=== PATIENT | female | born 1955 | race Caucasian/White ===

== ENCOUNTER 2022-12-15 12:39 | Outpatient (OUT) | payer OTHER, SELFPAY ==
--- NOTE | 2022-12-15 12:42 | XR_ITS ---
[facility] [place] [id number] Patient Name: LONDON COURTNEY MRN: [id number] date: 1955 Sex: F Assigned Patient Location: [facility] Current Patient Location: [facility] Accession/Order Number: [id number] Exam Date: 12/15/2022 12:55 Report Date: 12/15/2022 13:20 At the request of: MARIBEL ALVAREZ Procedure: XR DEXA axial skeleton EXAMINATION: XR DEXA axial skeleton HISTORY: Postmenopausal Z78.0 COMPARISON: No relevant comparison available. TECHNIQUE: Dual-energy X-ray absorptiometry (DXA) was performed. FINDINGS: SPINE ANALYSIS: Average bone mineral density is 1.129 g/cm2. T-score (standard deviation relative to young adult mean): -0.4 . HIP ANALYSIS: Lowest bone mineral density is within the right femoral trochanter, 0.392 g/cm2. T-score (standard deviation relative to young adult mean): -4.0 . XR/XR DEXA axial skeleton IMPRESSION: [employer] Classification: Osteoporosis - High Fracture Risk Electronically authenticated by: PEGGY CORTEZ Date: 12/15/2022 13:20
== END 2022-12-15 12:40 | disposition home or self-care (01) ==
LOC: RAD 12:39
PROVIDERS: PCP Family Medicine; Visit Provider Family Medicine
DX: Z78.0 Asymptomatic menopausal state (principal); M81.0 Age-related osteoporosis without current pathological fracture
CPT/HCPCS: 77080

== ENCOUNTER 2023-03-26 10:59 | Outpatient (OUT) | payer OTHER, SELFPAY ==
[2023-03-26 11:31] LABS: Hematocrit 38.3 % (36.0-48.0); Hemoglobin 12.3 g/dL (12.0-16.0); Mean Corpuscular HGB Conc 32.1 g/dL (29.9-35.2); Mean Corpuscular Hemoglobin 30.2 pg (26.7-34.0); Mean Corpuscular Volume 94.1 fL (81.0-99.0); Mean Platelet Volume 11.1 fL (9.5-13.5); Platelet Count 263 10^3/uL (150-450); Red Blood Count 4.07 10^6/uL (4.20-5.40); Red Cell Distribution Width 11.9 % (11.0-15.0); White Blood Count 7.7 10^3/uL (4.0-11.0)
[2023-03-26 11:32] LABS: Bilirubin Urine NEGATIVE (NEGATIVE); Blood Urine NEGATIVE (NEGATIVE); Clarity Urine CLEAR (CLEAR); Color Urine YELLOW (YELLOW); Glucose Urine UA NEGATIVE (NEGATIVE); Ketones Urine NEGATIVE (NEGATIVE); Leukocyte Esterase Urine SMALL (NEGATIVE); Nitrite Urine NEGATIVE (NEGATIVE); Protein Urine NEGATIVE (NEG/TRACE); Urobilinogen Urine 0.2 EU/dL (0.2-1.0)
[2023-03-26 11:53] LABS: Bacteria Urine TRACE #/HPF (NONE SEEN); Mucus Urine NONE SEEN (NONE SEEN); RBC Urine NONE SEEN #/HPF (0-2)
[2023-03-26 11:54] LABS: Squamous Epithelial Cell Urine FEW #/LPF (NONE/RARE)
[2023-03-26 11:55] LABS: Cast Seen? NONE SEEN #/LPF (NONE SEEN)
[2023-03-26 11:56] LABS: Creatinine Urine Random 108.85 mg/dL (20.00-300.00); Protein Creatinine Ratio Urine 0.11; Total Protein Urine Random 11.8 mg/dL (<=11.9)
[2023-03-26 12:34] LABS: Albumin Level 3.6 g/dL (3.4-5.0); Anion Gap 14.7; BUN Creatinine Ratio 23.6; Calcium 9.3 mg/dL (8.5-10.1); Carbon Dioxide 24.1 mmol/L (21.0-32.0); Chloride 103 mmol/L (98-107); Estimated GFR (African America 51 (>=60); Estimated GFR (Non-African Ame 42 (>=60); Glucose 159 mg/dL (74-106); Magnesium 1.9 mg/dL (1.8-2.4); Phosphorus 2.6 mg/dL (2.6-4.7); Potassium 3.8 mmol/L (3.5-5.1); Sodium 138 mmol/L (136-145); Uric Acid 5.5 mg/dL (2.6-6.0)
[2023-03-27 12:09] LABS: PTH, Intact 18 pg/mL (15-65)
== END 2023-03-26 11:00 | disposition home or self-care (01) ==
PROVIDERS: PCP Family Medicine; Visit Provider Internal Medicine
DX: Z12.31 Encounter for screening mammogram for malignant neoplasm of breast (principal); N18.30 Chronic kidney disease, stage 3 unspecified; I12.9 Hypertensive chronic kidney disease with stage 1 through stage 4 chronic kidney disease, or unspecified chronic kidney disease; E11.22 Type 2 diabetes mellitus with diabetic chronic kidney disease; D63.1 Anemia in chronic kidney disease; N25.81 Secondary hyperparathyroidism of renal origin
CPT/HCPCS: 36415; 77063; 77067; 80069; 81001; 82306; 82570; 83735; 83970; 84156; 84550; 85027

== ENCOUNTER 2023-03-26 11:24 | Outpatient (OUT) | payer OTHER, SELFPAY ==
--- NOTE | 2023-03-26 11:28 | MM_ITS ---
Patient Name: LONDON COURTNEY MR#: [id number] : 1955 Exam Date: 03/26/2023 Ordering Doctor: DR Romulo Garcia . RADIOLOGY REPORT PROCEDURE: MM TOMOSYNTHESIS SCREENING BI COMPARISON: MG MAMM SCREEN 3D [place] CAD, 10/25/2020. MG MAMM SCREEN 3D [place] CAD, 01/09/2022. INDICATIONS: Screening Calculator Name NCI Breast Cancer Risk Assessment Tool 5 Year Breast Cancer Risk 1.40% Lifetime Breast Cancer Risk 4.30% Personal Breast Cancer No Personal Ovarian Cancer No Treatments None Family Cancers None LOCATION: [facility] BREAST COMPOSITION: Almost entirely fatty. FINDINGS: DIAGNOSTIC CATEGORY 1--NEGATIVE. NO CHANGE FROM COMPARISON ASSESSMENT. Scattered benign-appearing calcifications are present. Scattered benign-appearing lymph nodes are present. RIGHT BREAST: No significant suspicious finding. LEFT BREAST: No significant suspicious finding. RECOMMENDATIONS: ROUTINE MAMMOGRAM AND CLINICAL EVALUATION IN 12 MONTHS. PLEASE NOTE: A NORMAL MAMMOGRAM DOES NOT EXCLUDE THE POSSIBILITY OF BREAST CANCER. A CLINICALLY SUSPICIOUS PALPABLE LUMP SHOULD BE BIOPSIED. Dictated by: Mateo Fox MD on 03/26/2023 at 14:22 Approved by: Mateo Fox MD on 03/26/2023 at 14:23
== END 2023-03-26 11:25 | disposition home or self-care (01) ==
LOC: MAMMO 11:24
PROVIDERS: PCP Family Medicine; Visit Provider Family Medicine
DX: Z12.31 Encounter for screening mammogram for malignant neoplasm of breast (principal)
CPT/HCPCS: 77063; 77067

== ENCOUNTER 2023-06-22 09:06 | Outpatient (OUT) | payer OTHER, SELFPAY ==
--- OUTSIDE RECORDS SUMMARY | 2023-06-22 09:11 | XMS_ITS | CCD ---
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 Name Role Phone Rice, Bakari W Unavailable Unavailable Rice, Bakari W Unavailable Unavailable Rice, Bakari W Unavailable Unavailable NADERER, MARIBEL~[phone] UNKNOWN Unavailable Unavailable NADERER, MARIBEL AVALOS Primary Care Unavailabl e DELAROSA, TIANA MURPHY Referring Unavailabl e Ada, Ghislaine Unavailable NADERER, DR MARIBEL Mueller Admitting Unavailable NADERER, DR MARIBEL Mueller Attending Unavailable TATIANA, DR PEGGY Lisa Consulting Unavailable NADERER, DR MARIBEL Mueller Primary Care Unavailable NADERER, DR MARIBEL Mueller Consulting Unavailable NADERER, DR MARIBEL Mueller Consulting Unavailable NADERER, DR MARIBEL Mueller Admitting Unavailable NADERER, DR MARIBEL Mueller Attending Unavailable NADERER, DR MARIBEL Mueller Primary Care Unavailable NADERER, DR MARIBEL Mueller Primary Care Unavailable ADA, GHISLAINE Admitting Unavailable ADA, GHISLAINE Consulting Unavailable ADA, GHISLAINE Attending Unavailable NADERER, DR MARIBEL Mueller Primary Care Unavailable ADA, GHISLAINE Attending Unavailable ADA, GHISLAINE Admitting Unavailable ADA, GHISLAINE Consulting Unavailable NADERER, DR MARIBEL Mueller Primary Care Unavailable NADERER, DR MARIBEL Mueller Consulting Unavailable NADERER, DR MARIBEL Mueller Attending Unavailable NADERER, DR MARIBEL Mueller Admitting Unavailable NADERER, DR MARIBEL Mueller Primary Care Unavailable ADA, GHISLAINE Attending Unavailable ADA, GHISLAINE Admitting Unavailable ADA, GHISLAINE Consulting Unavailable NADERER, DR MARIBEL Mueller Primary Care Unavailable NADERER, DR MARIBEL Mueller Consulting Unavailable NADERER, DR MARIBEL Mueller Admitting Unavailable NADERER, DR MARIBEL Mueller Attending Unavailable NADERER, DR MARIBEL Mueller Primary Care Unavailable NADERER, DR MARIBEL Mueller Admitting Unavailable NADERER, DR MARIBEL Mueller Attending Unavailable BREWSTER, DR CONNIE José Consulting Unavailable NADERER, DR MARIBEL Mueller Consulting Unavailable ANTONIO, DR MARIBEL Mueller Primary Care Unavailable BREWSTER, DR CONNIE José Consulting Unavailable ANTONIO, DR MARIBEL Mueller Admitting Unavailable NADEREMaria L, DR MARIBEL Mueller Attending Unavailable NADERER, DR MARIBEL Mueller Consulting Unavailable NADERER, DR MARIBEL Mueller Primary Care Unavailable NADERER, DR MARIBEL Mueller Consulting Unavailable FAWWAShnaa, SHAIKH Stephanie Admitting Unavailable FAWJAYDEN, SHAIKH Stephanie Attending Unavailable FAWJAYDEN, SHAIKH Stephanie Consulting Unavailable ISAMAR WATERS Consulting Unavailable ANTONIO, DR MARIBEL Mueller Consulting Unavailable ANTONIO, DR MARIBEL Mueller Admitting Unavailable NADPHYLLIS, DR MARIBEL Mueller Primary Care Unavailable NADPHYLLIS, DR MARIBEL Mueller Attending Unavailable ANTONIO, DR MARIBEL Mueller Primary Care Unavailable GRILLIZehra ., DR KELLY Calderon Consulting Unavaila ble GRILLIS ., DR KELLY Calderon Attending Unavaila ble GRILLIS ., DR KELLY Calderon Admitting Unavaila ble URI II, CHANO Consulting Unavailable FILMELVIN, ANAIS Consulting Unavailable ANTONIO, MARIBEL Attending Unavailable GERONIMO, ANAIS Rey Attending Unavailable Allergies Allergy Classification Reported Allergen(s) Allergy Type Date of Onset Reaction(s) Facility (1 source) No Known Medication Allergies; Translations: [No Known Medication Allergies] Propensity to adverse reactions (disorder) [facility] Repository Medications Current Medications Medication Drug Class(es) Dates Sig (Normalized) Sig (Original) acetaminophen 500 mg oral capsule (14 sources) take 1-2 capsules by mouth every six hours as needed Acetaminophen 500 mg 1-2 capsules as needed Orally every 6 hrs Active take 1-2 capsules by mouth every six hours as needed Acetaminophen 500 mg 1-2 capsules as nee ded Orally every 6 hrs Active alendronic acid 70 mg oral tablet (1 source) Bisphosphonate Alendronate Sodi um 70 MG 1 tablet 30 minutes before the first food, beverage or medicine of the day with plain water Orally ONCE A WEEK Active aspirin 81 mg chewable tablet (14 sources) Platelet Aggregation Inhibitor, Nonsteroidal Anti-inflammatory Drug take 1 tablet by mouth every twenty-four hours Aspirin 81 MG 1 Tablet Orally Daily Active atorvastatin 10 mg oral tablet (14 sources) HMG-CoA Reductase Inhibitor take 1 tablet by mouth every twenty-four hours Atorvastatin Calcium 10 MG 1 tablet Orally Once a day Active Calcium + D + K 750-500-40 MG-UNT-MCG (1 source) take 1 tablet by mouth twice daily at mealtime Calcium + D + K 750-500-40 MG-UNT-MCG 1 tablet with meals Orally Twice a day Active Centrum Silver 50+Women - (1 source) Centrum Silver 50+Women - as directed Orally Active cholecalciferol 0.05 mg oral capsule (7 sources) Vitamin D take 1 capsule by mouth every twenty-four hours Vitamin D3 50 MCG (1999 UT) 1 capsule Orally Once a day Active docusate sodium 50 mg / sennosides, assisted 8.6 mg oral tablet (2 sources) take 1 tablet by mouth every twenty-four hours Senna S 8.6-50 MG 1 tablet as needed Orally ONCE A DAY Active ferrous sulfate 325 mg oral tablet (16 sources) Start: take 1 tablet by mouth every other day Ferrous Sulfate 325 (65 Fe) MG 1 tablet Orally every other day for 90 day(s) Feb, Active Start: 02-10-2021 take 1 tablet by emilee every other day Ferrous Sulfate 325 (65 Fe) MG 1 tablet Orally every other day for 90 day(s) Feb, Active take 1 tablet by emilee every other day Ferrous Sulfate 325 (65 Fe) MG 1 tablet Orally every other day for 90 day(s) Active hydroCHLOROthiazide 25 mg / losartan potassium 100 mg oral tablet (14 sources) Thiazide Diuretic, Angiotensin 2 Receptor Michelle take 1 tablet by mouth every twenty-four hours Losartan Potassium-HCTZ 100-25 MG 1 tablet Orally Once a day Active take 1 tablet by mouth every twe nty-four hours magnesium oxide 400 mg oral tablet (17 sources) Start: 02-10-2021 take 1 tablet by emilee every twenty-four hours Magnesium Oxide 400 MG 1 tab(s) Orally Once a day for 90 day(s) Feb, Active take 1 tablet by mouth once tip y Magnesium Oxide 400 (240 Mg) MG TAKE 1 TABLET BY MOUTH EVERY DAY for 90 Active metFORMIN hydrochloride 500 mg oral tablet (16 sources) Biguanide take 1 tablet by emilee th twice daily at mealtime metFORMIN HCl 500 mg TAKE 1 TABLET BY MOUTH WITH MEALS TWICE DAILY for 90 Active take 0.5 tablet by mouth twice d aily Metformin 1000 mg 1/2 Tablet Oral bid for 90 day(s) Active metoprolol tartrate 50 mg oral tablet (14 sources) beta-Adrenergic Michelle take 1 tablet by mouth every twelve hours Metoprolol Tartrate 50 MG 1 tablet with food Orally Twice a day Active oxyCODONE hydrochloride 10 mg oral tablet (8 sources) Opioid Agonist take 1 tablet by mouth every six hours oxyCODONE HCl 10 MG 1 tablet as needed Orally every 6 hrs Active Completed/Discontinued Medications Medication Drug Class(es) Dates Sig (Normalized) Sig (Original) Multivitamins - (6 sources) Multivitamins - as directed Orally Not-Taking Problems Active Problems Problem Classification Problem Date Documented Date Episodic/Chronic Chronic kidney disease (15 sources) Chronic kidney disease stage 3; Translations: [Chronic kidney disease, stage 3 (moderate)] Chronic Deficiency and other anemia (14 sources) Anemia of renal disease; Translations: [Anemia in chronic kidney disease] Chronic Deficiency and other anemia (5 sources) Anemia in chronic kidney disease; Translations: [ANEMIA IN CHRONIC KIDNEY DISEASE] Onset: 1 Resolved: 2 Chronic Diabetes mellitus with complications (20 sources) Type 2 diabetes mellitus; Translations: [Type 2 diabetes mellitus with diabetic chronic kidney disease] Onset: 1 Resolved: 2 Chronic Diabetes mellitus without complication (1 source) Type 2 diabetes mellitus without complications; Translations: [TYPE 2 DM WITHOUT COMPLICATIONS] Onset: 3 Chronic Disorders of lipid metabolism (5 sources) Hyperlipidemia, unspecified; Translations: [Dyslipidemia] Onset: 3 Chronic Essential hypertension (1 source) Essential (primary) hypertension; Translations: [ESSENTIAL PRIMARY HYPERTENSION] Onset: 3 Chronic Hypertension with complications and secondary hypertension (20 sources) Hypertensive renal disease; Translations: [Hypertensive chronic kidney disease with stage 1 through stage 4 chronic kidney disease, or unspecified chronic kidney disease] Onset: 1 Resolved: 2 Chronic Osteoarthritis (1 source) Unilateral primary osteoarthritis, left hip; Translations: [UNI PRIM OSTEOARTHRITIS LT HIP] Onset: 2 Chronic Other aftercare (1 source) Other assisted (current) drug therapy; Translations: [OTH BALL SHAGGER CURRENT DRUG THERAPY] Onset: 3 Episodic Other aftercare (1 source) 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; Translations: [BALL SHAGGER CURRENT USE OF ASPIRIN] Onset: 3 Episodic Other aftercare (1 source) termite treater helper (current) use of oral hypoglycemic drugs; Translations: [BALL SHAGGER USE ORAL HYPOGLYCEMIC DX] Onset: 3 Episodic Other and unspecified benign neoplasm (1 source) Personal history of colonic polyps; Translations: [PERSONAL HISTORY OF COLONIC POLYPS] Onset: 3 Episodic Other diseases of kidney and ureters (14 sources) Secondary hyperparathyroidism; Translations: [Secondary hyperparathyroidism of renal origin] Chronic Other diseases of kidney and ureters (6 sources) Secondary hyperparathyroidism of renal origin; Translations: [SEC HYPERPARATHYROIDISM RENAL ORIGN] Onset: 1 Resolved: 2 Chronic Other non-traumatic joint disorders (3 sources) Pain in unspecified knee; Translations: [PAIN IN UNSPECIFIED KNEE] Onset: 3 Episodic Other non-traumatic joint disorders (1 source) Pain in left knee; Translations: [PAIN IN LEFT KNEE] Onset: 3 Episodic Other screening for suspected conditions (not mental disorders or infectious disease) (8 sources) Encounter for screening for malignant neoplasm of colon; Translations: [Encounter for screening mammogram for malignant neoplasm of breast] Onset: 2 Episodic Unclassified (1 source) CHRN KIDNEY DISEASE STG 3 UNSP; Translations: [CHRN KIDNEY DISEASE STG 3 UNSP] Onset: 3 Unclassified (2 sources) CONTACT W/AND (SUSP) EXPOS COVID-19; Translations: [CONTACT W/AND (SUSP) EXPOS COVID-19] Onset: 2 Viral infection (2 sources) COVID-19; Translations: [COVID-19] Onset: 2 Past or Other Problems Problem Classification Problem Date Documented Da te Episodic/Chronic Acute and unspecified renal failure (1 source) Acute kidney failure, unspecified; Translations: [ACUTE KIDNEY FAILURE UNSPECIFIED] Onset: 02-01-2022 Episodic Chronic kidney disease (20 sources) Chronic kidney disease; Translations: [Chronic kidney disease, stage III (moderate)] Onset: 02-10-2021 Resolved: 09-01-2021 Malaise and fatigue (4 sources) Weakness; Translations: [WEAKNESS] Onset: 01-26-2022 Episodic Other fractures (4 sources) Other specified fracture of left pubis, subsequent encounter for fracture with routine healing; Translations: [OTHER SPEC FX LT PUBIS SUB FX RTN] Onset: 10-18-2021 Episodic Septicemia (except in labor) (1 source) Sepsis, unspecified organism; Translations: [SEPSIS UNSPECIFIED ORGANISM] Onset: 02-01-2022 Episodic Unclassified (1 source) CONTACT W/AND (SUSP) EXPOS COVID-19; Translations: [CONTACT W/AND (SUSP) EXPOS COVID-19] Onset: 01-16-2022 Urinary tract infections (1 source) Urinary tract infection, site not specified; Translations: [UTI SITE NOT SPECIFIED] Onset: 02-01-2022 Episodic Results Test Name Value Interpretation Reference Range Facility PTH INTACTon 09-01-2022 PTH, Intact 26 pg/mL Normal 15-65 [facility] Comment on above: Performed By: #### P THINT #### [facility] [address] [place] [address] Dr. Nunu Borges CBC AUTO DIFFon 08-31-2022 BASO # 0.1 103/ul Normal 0.0-0.1 [facility] Comment on above: Performed By: #### U TIFFANIE, MG, RENAL #### [facility] [address] [address] [address] Nunu Borges Basophils/100 WBC (Bld) 1.2 % Normal 0.2-2.0 [facility] Comment on above: Performed By: #### U TIFFANIE, MG, RENAL #### [facility] [address] [address] [address] Nunu Borges EO # 0.1 103/ul Normal 0.0-0.7 [facility] Comment on above: Performed By: #### U TIFFANIE, MG, RENAL #### [facility] [address] [address] [address] Nunu Borges Eosinophils/100 WBC (Bld) 2.2 % Normal 0.9-7.0 [facility] Comment on above: Performed By: #### U TIFFANIE, MG, RENAL #### [facility] [address] [address] [address] Nunu Borges Erythrocyte distribution width (RBC) [Ratio] 12.7 % Normal 11.0-15.0 [facility] Comment on above: Performed By: #### U TIFFANIE, MG, RENAL #### [facility] [address] [place] [address] Dr. Nunu Borges Hematocrit (Bld) [Volume fraction] 38.0 % Normal 36.0-48.0 [facility] Comment on above: Performed By: #### U TIFFANIE, MG, RENAL #### [facility] [address] [place] [address] Dr. Nunu Borges Hemoglobin (Bld) [Mass/Vol] 12.5 g/dL Normal 12.0-16.0 [facility] Comment on above: Performed By: #### U TIFFANIE, MG, RENAL #### [facility] [address] [place] [address] Dr. Nunu Borges IG # 0.02 10e3/ul Normal 0.00-0.03 [facility] Comment on above: Performed By: #### U TIFFANIE, MG, RENAL #### [facility] [address] [place] [address] Dr. Nunu Borges IG % 0.3 % Normal 0.0-0.5 [facility] Comment on above: Performed By: #### U TIFFANIE, MG, RENAL #### [facility] [address] [place] [address] Dr. Nunu Borges LYMPH # 1.8 103/ul Normal 1.2-3.8 [facility] Comment on above: Performed By: #### U TIFFANIE, MG, RENAL #### [facility] [address] [place] [address] Dr. Nunu Borges Lymphocytes/100 WBC (Bld) 30.7 % Normal 20.5-60.0 [facility] Comment on above: Performed By: #### U TIFFANIE, MG, RENAL #### [facility] [address] [place] [address] Dr. Nunu Borges MANUAL DIFF REQ NO Normal [facility] Comment on above: Performed By: #### U TIFFANIE, MG, RENAL #### [facility] [address] [place] [address] Dr. Nunu Borges MCH (RBC) [Entitic mass] 29.8 pg Normal 26.7-34.0 [facility] Comment on above: Performed By: #### U TIFFANIE, MG, RENAL #### [facility] [address] [address] [address] Nunu Borges MCHC (RBC) [Mass/Vol] 32.9 g/dL Normal 29.9-35.2 [facility] Comment on above: Performed By: #### U TIFFANIE, MG, RENAL #### [facility] [address] [place] [address] Dr. Nunu Borges MCV (RBC) [Entitic vol] 90.5 fL Normal 81.0-99.0 [facility] Comment on above: Performed By: #### U TIFFANIE, MG, RENAL #### [facility] [address] [place] [address] Dr. Nunu Borges MONO # 0.7 103/ul Normal 0.3-0.8 [facility] Comment on above: Performed By: #### U TIFFANIE, MG, RENAL #### [facility] [address] [place] [address] Dr. Nuun Borges Monocytes/100 WBC (Bld) 12.4 % Critically high 1.7-12.0 [facility] Comment on above: Performed By: #### U TIFFANIE, MG, RENAL #### [facility] [address] [place] [address] Dr. Nunu Borges NEUT # 3.1 103/ul Normal 1.4-6.5 [facility] Comment on above: Performed By: #### U TIFFANIE, MG, RENAL #### [facility] [address] [place] [address] Dr. Nunu Borges Neutrophils/100 WBC (Bld) 53.2 % Normal 43.0-75.0 [facility] Comment on above: Performed By: #### U TIFFANIE, MG, RENAL #### [facility] [address] [place] [address] Dr. Nunu Borges Platelet mean volume (Bld) [Entitic vol] 11.3 fL Normal 9.5-13.5 [facility] Comment on above: Performed By: #### U TIFFANIE, MG, RENAL #### [facility] [address] [address] [address] Nunu Borges PLT 284 103/ul Normal 150-450 [facility] Comment on above: Performed By: #### U TIFFANIE, MG, RENAL #### [facility] [address] [address] [address] Nunu Borges RBC 4.20 106/ul Normal 4.20-5.40 [facility] Comment on above: Performed By: #### U TIFFANIE, MG, RENAL #### [facility] [address] [address] [address] Nunu Borges WBC 5.9 103/ul Normal 4.0-11.0 [facility] Comment on above: Performed By: #### U TIFFANIE, MG, RENAL #### [facility] [address] [address] [address] Nunu Borges FERRITINon 08-31-2022 Ferritin [Mass/Vol] 66.0 ng/mL Normal 8.0-252.0 [facility] Comment on above: Performed By: #### U TIFFANIE, MG, RENAL #### [facility] [address] [place] [address] Dr. Nunu Borges GLYCOHEMOGLOBIN A1Con 2022 ADA RECOMMENDATION SEE BELOW Normal [facility] Comment on above: Result Comment: ADA RECOMMENDED LIMIT 4.0 - 6.0 ADA THERAPEUTIC TARGET < 7.0 ACTION SUGGESTED > 7.0 Performed By: #### U TIFFANIE, MG, RENAL #### [facility] [address] [address] [address] Nunu Borges Glucose [Mass/Vol] 134 mg/dL Normal [facility] Comment on above: Performed By: #### U TIFFANIE, MG, RENAL #### [facility] [address] [place] [address] Dr. Nunu Borges HbA1c (Bld) [Mass fraction] 6.3 % Critically high 4.5-6.2 [facility] Comment on above: Performed By: #### U TIFFANIE, MG, RENAL #### [facility] [address] [address] [address] Nunu Borges IRON AND TIBCon 08-31-2022 % SATURATION 25.9 % Normal [facility] Comment on above: Performed By: #### U TIFFANIE, MG, RENAL #### [facility] [address] [address] [address] Nunu Borges Iron [Mass/Vol] 90.0 ug/dL Normal 50.0-170.0 [facility] Comment on above: Performed By: #### U TIFFANIE, MG, RENAL #### [facility] [address] [address] [address] Nunu Borges TIBC DIRECT 348.0 ug/dL Normal 250.0-450.0 [facility] Comment on above: Performed By: #### U TIFFANIE, MG, RENAL #### [facility] [address] [place] [address] Dr. Nunu Borges LIPID PROFILEon 08-31-2022 CHOL-HDL RATIO NORM SEE BELOW Normal [facility] Comment on above: Result Comment: 3.3 - 4.4 LOW RISK 4.4 - 7.1 AVERAGE RISK 7.1 - 11.0 MODERATE RISK >11.0 HIGH RISK Performed By: #### U TIFFANIE, MG, RENAL #### [facility] [address] [address] [address] Nunu Borges Cholesterol [Mass/Vol] 152 mg/dL Normal <=200 [facility] Comment on above: Performed By: #### U TIFFANIE, MG, RENAL #### [facility] [address] [address] [address] Nunu Borges Cholesterol in HDL [Mass/Vol] 77 mg/dL Critically high 40-60 [facility] Comment on above: Performed By: #### U TIFFANIE, MG, RENAL #### [facility] [address] [place] [address] Dr. Nunu Borges Cholesterol in LDL [Mass/Vol] 63.2 mg/dL Normal [facility] Comment on above: Performed By: #### U TIFFANIE, MG, RENAL #### [facility] [address] [place] [address] Dr. Nunu Borges Cholesterol.total/Ch olesterol in HDL [Mass ratio] 2.0 {ratio} Normal [facility] Comment on above: Performed By: #### U TIFFANIE, MG, RENAL #### [facility] [address] [address] [address] Nunu Borges HDL NORMAL > or = 60 mg/dl - LOW CARDIOVASCULAR RISK <40 mg/dl - HIGH CARDIOVASCULAR RISK Normal [facility] Comment on above: Performed By: #### U TIFFANIE, MG, RENAL #### [facility] [address] [address] [address] Nunu Borges LDL CALC NORMAL SEE BELOW Normal [facility] Comment on above: Result Comment: <100 mg/dl OPTIMAL 100 - 129 mg/dl NEAR OR ABOVE OPTIMAL 130 - 159 mg/dl BORDERLINE HIGH 160 - 189 mg/dl HIGH >190 mg/dl VERY HIGH Performed By: #### U TIFFANIE, MG, RENAL #### [facility] [address] [address] [address] Nunu Borges Triglyceride [Mass/Vol] 59 mg/dL Normal <=150 [facility] Comment on above: Performed By: #### U TIFFANIE, MG, RENAL #### [facility] [address] [address] [address] Nunu Borges VLDL CALC 11.8 mg/dL Normal [facility] Comment on above: Performed By: #### U TIFFANIE, MG, RENAL #### [facility] [address] [address] [address] Nunu Borges LIVER PROFILEon 08-31-2022 Albumin/Globulin [Mass ratio] 1.1 {ratio} Normal [facility] Comment on above: Performed By: #### U TIFFANIE, MG, RENAL #### [facility] [address] [address] [address] Nunu Borges ALP [Catalytic activity/Vol] 129 U/L Critically high 46-116 [facility] Comment on above: Performed By: #### U TIFFANIE, MG, RENAL #### [facility] [address] [address] [address] Nunu Borges ALT [Catalytic activity/Vol] 32 U/L Normal 14-59 [facility] Comment on above: Performed By: #### U TIFFANIE, MG, RENAL #### [facility] [address] [place] [address] Dr. Nunu Borges AST [Catalytic activity/Vol] 20 U/L Normal 15-37 [facility] Comment on above: Performed By: #### U TIFFANIE, MG, RENAL #### [facility] [address] [place] [address] Dr. Nunu Borges BILI, CONJUGATED 0.2 mg/dL Normal 0.0-0.2 [facility] Comment on above: Performed By: #### U TIFFANIE, MG, RENAL #### [facility] [address] [place] [address] Dr. Nunu Borges Bilirubin [Mass/Vol] 0.8 mg/dL Normal 0.2-1.0 [facility] Comment on above: Performed By: #### U TIFFANIE, MG, RENAL #### [facility] [address] [place] [address] Dr. Nunu Borges Globulin (S) [Mass/Vol] 3.6 g/dL Normal [facility] Comment on above: Performed By: #### U TIFFANIE, MG, RENAL #### [facility] [address] [place] [address] Dr. Nunu Borges Protein [Mass/Vol] 7.5 g/dL Normal 6.4-8.2 [facility] Comment on above: Performed By: #### U TIFFANIE, MG, RENAL #### [facility] [address] [place] [address] Dr. Nunu Borges MAGNESIUMon 08-31-2022 Magnesium [Mass/Vol] 1.8 mg/dL Normal 1.8-2.4 [facility] Comment on above: Performed By: #### U TIFFANIE, MG, RENAL #### [facility] [address] [place] [address] Dr. Nunu Borges MICROALBUMIN, RAND URon 08-08 mALB <1.3 Normal <=30.0 [facility] Comment on above: Performed By: #### U TIFFANIE, MG, RENAL #### [facility] [address] [place] [address] Dr. Nunu Borges PROF CHEM 8 (BAS METB)on Anion gap [Moles/Vol] 14.3 mmol/L Normal [facility] Comment on above: Performed By: #### U TIFFANIE, MG, RENAL #### [facility] [address] [place] [address] Dr. Nunu Borges CO2 [Moles/Vol] 27.7 mmol/L Normal 21.0-32.0 [facility] Comment on above: Performed By: #### U TIFFANIE, MG, RENAL #### [facility] [address] [place] [address] Dr. Nunu Borges Glucose [Mass/Vol] 119 mg/dL Critically high 74-106 [facility] Comment on above: Performed By: #### U TIFFANIE, MG, RENAL #### [facility] [address] [place] [address] Dr. Nunu Borges Urea nitrogen/Creatinine [Mass ratio] 22.7 mg/mg Normal [facility] Comment on above: Performed By: #### U TIFFANIE, MG, RENAL #### [facility] [address] [place] [address] Dr. Nunu Borges RENAL FUNCTION PANELon 08-31 Albumin [Mass/Vol] 3.9 g/dL Normal 3.4-5.0 [facility] Comment on above: Performed By: #### U TIFFANEI, MG, RENAL #### [facility] [address] [place] [address] Dr. Nunu Borges Calcium [Mass/Vol] 9.7 mg/dL Normal 8.5-10.1 [facility] Comment on above: Performed By: #### U TIFFANIE, MG, RENAL #### [facility] [address] [place] [address] Dr. Nunu Borges Chloride [Moles/Vol] 99 mmol/L Normal 98-107 [facility] Comment on above: Performed By: #### U TIFFANIE, MG, RENAL #### [facility] [address] [place] [address] Dr. Nunu Borges CO2 [Moles/Vol] 28.0 mmol/L Normal 21.0-32.0 [facility] Comment on above: Performed By: #### U TIFFANIE, MG, RENAL #### [facility] [address] [address] [address] Nunu Borges Creatinine [Mass/Vol] 1.32 mg/dL Critically high 0.55-1.02 [facility] Comment on above: Performed By: #### U TIFFANIE, MG, RENAL #### [facility] [facility] [address] [address] [address] Nunu Borges EGFR-AF UGANDAN 49 mL/min/1.73m2 Critically low >=60 [facility] Comment on above: Performed By: #### U TIFFANIE, MG, RENAL #### [facility] [address] [place] [address] Dr. Nunu Borges EGFR-NON AF UGANDAN 40 mL/min/1.73m2 Critically low >=60 [facility] Comment on above: Performed By: #### U TIFFANIE, MG, RENAL #### [facility] [address] [address] [address] Nunu Borges Glucose [Mass/Vol] 118 mg/dL Critically high 74-106 [facility] Comment on above: Performed By: #### U TIFFANIE, MG, RENAL #### [facility] [address] [place] [address] Dr. Nunu Borges Phosphate [Mass/Vol] 3.6 mg/dL Normal 2.6-4.7 [facility] Comment on above: Performed By: #### U TIFFANIE, MG, RENAL #### [facility] [address] [address] [address] Nunu Borges Potassium [Moles/Vol] 4.0 mmol/L Normal 3.5-5.1 [facility] Comment on above: Performed By: #### U TIFFANIE, MG, RENAL #### [facility] [address] [address] [address] Nunu Borges Sodium [Moles/Vol] 137 mmol/L Normal 136-145 [facility] Comment on above: Performed By: #### U TIFFANIE, MG, RENAL #### [facility] [address] [address] [address] Nunu Borges Urea nitrogen [Mass/Vol] 30.0 mg/dL Critically high 7.0-18.0 [facility] Comment on above: Performed By: #### U TIFFANIE, MG, RENAL #### [facility] [address] [address] [address] Nunu Borges UA RANDOM W/MICROSCOPICon BACTERIA NONE SEEN Normal NONE SEEN [facility] Comment on above: Performed By: #### U AMIC #### [facility] [address] [address] [address] Nunu Borges Bilirubin Ql (U) Negative Normal NEGATIVE [facility] Comment on above: Performed By: #### U AMIC #### [facility] [address] [place] [address] Dr. Nunu Borges CAST NONE SEEN Normal NONE SEEN [facility] Comment on above: Performed By: #### U AMIC #### [facility] [address] [address] [address] Nunu Borges Clarity (U) CLEAR Normal CLEAR [facility] Comment on above: Performed By: #### U AMIC #### [facility] [address] [address] [address] Nunu Borges Color (U) LT. YELLOW Normal YELLOW [facility] Comment on above: Performed By: #### U AMIC #### [facility] [address] [address] [address] Nunu Borges Crystals LM Nom (Urine sed) NONE SEEN Normal NONE SEEN [facility] Comment on above: Performed By: #### U AMIC #### [facility] [address] [address] [address] Nunu Borges Epithelial cells LM Ql (Urine sed) FEW Abnormal NONE SEEN /RARE [facility] Comment on above: Performed By: #### U AMIC #### [facility] [address] [place] [address] Dr. Nunu Borges Glucose Ql (U) Negative Normal NEGATIVE [facility] Comment on above: Performed By: #### U AMIC #### [facility] [address] [address] [address] Nunu Borges Hemoglobin Ql (U) Negative Normal NEGATIVE [facility] Comment on above: Performed By: #### U AMIC #### [facility] [address] [address] [address] Nunu Borges Ketones Ql (U) Negative Normal NEGATIVE [facility] Comment on above: Performed By: #### U AMIC #### [facility] [address] [address] [address] Nunu Borges LEUKOCYTES TRACE Abnormal NEGATIVE [facility] Comment on above: Performed By: #### U AMIC #### [facility] [address] [place] [address] Dr. Nunu Borges MUCOUS NONE SEEN Normal NONE SEEN [facility] Comment on above: Performed By: #### U AMIC #### [facility] [address] [place] [address] Dr. Nunu Borges Nitrite Ql (U) Negative Normal NEGATIVE [facility] Comment on above: Performed By: #### U AMIC #### [facility] [address] [address] [address] Nunu Borges pH (U) 6.0 [pH] Normal 5-9 [facility] Comment on above: Performed By: #### U AMIC #### [facility] [address] [place] [address] Dr. Nunu Borges RBC NONE SEEN Abnormal 0-2 [facility] Comment on above: Performed By: #### U AMIC #### [facility] [address] [place] [address] Dr. Nunu Borges SPEC GRAVITY 1.015 Normal 1.005-<=1.025 [facility] Comment on above: Performed By: #### U AMIC #### [facility] [address] [place] [address] Dr. Nunu Borges UA PROTEIN Negative Normal NEGATIVE/ TRACE [facility] Comment on above: Performed By: #### U AMIC #### [facility] [address] [place] [address] Dr. Nunu Borges Urobilinogen Qn (U) 0.2 {Myriam'U}/dL Normal 0.2 - 1. 0 [facility] Comment on above: Performed By: #### U AMIC #### [facility] [address] [address] [address] Nunu Borges WBC 2-5 Abnormal NONE SEEN [facility] Comment on above: Performed By: #### U AMIC #### [facility] [address] [address] [address] Nunu Borges URIC ACID SERUMon 08-31-2022 Urate [Mass/Vol] 6.3 mg/dL Critically high 2.6-6.0 [facility] Comment on above: Performed By: #### U TIFFANIE, MG, RENAL #### [facility] [address] [address] [address] Nunu Borges URINE T PROTEIN CREAT RATIOo n 08-31-2022 Protein (U) [Mass/Vol] 13.3 mg/dL Critically high <=12.0 [facility] Comment on above: Performed By: #### U TIFFANIE, MG, RENAL #### [facility] [address] [address] [address] Nunu Borges UR PROT CREAT RAT 0.11 Normal [facility] Comment on above: Performed By: #### U TIFFANIE, MG, RENAL #### [facility] [address] [address] [address] Nunu Borges URINE CREAT 121.05 mg/dL Normal 20.00-300.00 [facility] Comment on above: Performed By: #### U TIFFANIE, MG, RENAL #### [facility] [address] [address] [address] Nunu Borges VITAMIN D 25 OHon 08-31-2022 VIT D 25-OH 79.7 ng/mL Normal [facility] Comment on above: Performed By: #### U TIFFANIE, MG, RENAL #### [facility] [address] [address] [address] Nunu Borges VIT D RANGES SEE BELOW Normal [facility] Comment on above: Result Comment: <20 ng/mL Vit D deficient 20 - <30 ng/mL Vit D insufficient 30 - 100 ng/mL Vit D sufficient >100 ng/mL Potential Toxicity Performed By: #### U TIFFANIE, MG, RENAL #### [facility] [address] [place] [address] Dr. Nunu Borges POINT OF CARE GLUCOSEon 04-1 Glucose [Mass/Vol] 132 mg/dL Critically high 74-106 [facility] Comment on above: Performed By: #### U AMIC #### [facility] [address] [place] [address] Dr. Nunu Borges PTH INTACTon 02-15-2022 PTH, Intact 36 pg/mL Normal 15-65 [facility] Comment on above: Performed By: #### U TIFFANIE, MG, RENAL #### [facility] [address] [place] [address] Dr. Nunu Borges UA RANDOM W/MICROSCOPICon BACTERIA TRACE Abnormal NONE SEEN [facility] Comment on above: Performed By: #### U AMIC #### [facility] [address] [place] [address] Dr. Nunu Borges Bilirubin Ql (U) Negative Normal NEGATIVE [facility] Comment on above: Performed By: #### U AMIC #### [facility] [address] [place] [address] Dr. Nunu Borges CAST NONE SEEN Normal NONE SEEN [facility] Comment on above: Performed By: #### U AMIC #### [facility] [address] [place] [address] Dr. Nunu Borges Clarity (U) CLEAR Normal CLEAR [facility] Comment on above: Performed By: #### U AMIC #### [facility] [address] [place] [address] Dr. Nunu Borges Color (U) LT. YELLOW Normal YELLOW [facility] Comment on above: Performed By: #### U AMIC #### [facility] [address] [place] [address] Dr. Nunu Borges Crystals LM Nom (Urine sed) NONE SEEN Normal NONE SEEN [facility] Comment on above: Performed By: #### U AMIC #### [facility] [address] [address] [address] Nunu Borges Epithelial cells LM Ql (Urine sed) FEW Abnormal NONE SEEN /RARE [facility] Comment on above: Performed By: #### U AMIC #### [facility] [address] [address] [address] Nunu Borges Glucose Ql (U) Negative Normal NEGATIVE [facility] Comment on above: Performed By: #### U AMIC #### [facility] [address] [address] [address] Nunu Borges Hemoglobin Ql (U) Negative Normal NEGATIVE [facility] Comment on above: Performed By: #### U AMIC #### [facility] [address] [address] [address] Nunu Borges Ketones Ql (U) Negative Normal NEGATIVE [facility] Comment on above: Performed By: #### U AMIC #### [facility] [address] [address] [address] Nunu Borges LEUKOCYTES SMALL Abnormal NEGATIVE [facility] Comment on above: Performed By: #### U AMIC #### [facility] [address] [address] [address] Nunu Borges MUCOUS NONE SEEN Normal NONE SEEN [facility] Comment on above: Performed By: #### U AMIC #### [facility] [address] [address] [address] Nunu Borges Nitrite Ql (U) Negative Normal NEGATIVE [facility] Comment on above: Performed By: #### U AMIC #### [facility] [address] [address] [address] Nunu Borges pH (U) 7.0 [pH] Normal 5-9 [facility] Comment on above: Performed By: #### U AMIC #### [facility] [address] [address] [address] Nunu Borges RBC NONE SEEN Abnormal 0-2 [facility] Comment on above: Performed By: #### U AMIC #### [facility] [address] [address] [address] Nunu Borges SPEC GRAVITY 1.010 Normal 1.005-<=1.025 [facility] Comment on above: Performed By: #### U AMIC #### [facility] [address] [place] [address] Dr. Nunu Borges UA PROTEIN Negative Normal NEGATIVE/ TRACE [facility] Comment on above: Performed By: #### U AMIC #### [facility] [address] [address] [address] Nunu Borges Urobilinogen Qn (U) 0.2 {Myriam'U}/dL Normal 0.2 - 1. 0 [facility] Comment on above: Performed By: #### U AMIC #### [facility] [address] [place] [address] Dr. Nunu Borges WBC 5-10 Abnormal NONE SEEN [facility] Comment on above: Performed By: #### U AMIC #### [facility] [address] [place] [address] Dr. Nunu Borges FERRITINon 02-13-2022 Ferritin [Mass/Vol] 72.0 ng/mL Normal 8.0-252.0 [facility] Comment on above: Performed By: #### U TIFFANIE, MG, RENAL #### [facility] [address] [place] [address] Dr. Nunu Borges GLYCOHEMOGLOBIN A1Con 2021 ADA RECOMMENDATION SEE BELOW Normal [facility] Comment on above: Result Comment: ADA RECOMMENDED LIMIT 4.0 - 6.0 ADA THERAPEUTIC TARGET < 7.0 ACTION SUGGESTED > 7.0 Performed By: #### A 1C #### [facility] [address] [place] [address] Dr. Nunu Borges Glucose [Mass/Vol] 143 mg/dL Normal [facility] Comment on above: Performed By: #### A 1C #### [facility] [address] [place] [address] Dr. Nunu Borges HbA1c (Bld) [Mass fraction] 6.6 % Critically high 4.5-6.2 [facility] Comment on above: Performed By: #### A 1C #### [facility] [address] [place] [address] Dr. Nunu Borges HEMOGRAM AND PLATELon 2021 Hematocrit (Bld) [Volume fraction] 36.1 % Normal 36.0-48.0 [facility] Comment on above: Performed By: #### U TIFFANIE, MG, RENAL #### [facility] [address] [place] [address] Dr. Nunu Borges Hemoglobin (Bld) [Mass/Vol] 11.5 g/dL Critically low 12.0-16.0 [facility] Comment on above: Performed By: #### U TIFFANIE, MG, RENAL #### [facility] [address] [place] [address] Dr. Nunu Borges MCH (RBC) [Entitic mass] 29.1 pg Normal 26.7-34.0 [facility] Comment on above: Performed By: #### U TIFFANIE, MG, RENAL #### [facility] [address] [place] [address] Dr. Nunu Borges MCHC (RBC) [Mass/Vol] 31.9 g/dL Normal 29.9-35.2 [facility] Comment on above: Performed By: #### U TIFFANIE, MG, RENAL #### [facility] [address] [place] [address] Dr. Nunu Borges MCV (RBC) [Entitic vol] 91.4 fL Normal 81.0-99.0 [facility] Comment on above: Performed By: #### U TIFFANIE, MG, RENAL #### [facility] [address] [place] [address] Dr. Nunu Borges PLT 348 103/ul Normal 150-450 [facility] Comment on above: Performed By: #### U TIFFANIE, MG, RENAL #### [facility] [address] [place] [address] Dr. Nunu Borges RBC 3.95 106/ul Critically low 4.20-5.40 [facility] Comment on above: Performed By: #### U TIFFANIE, MG, RENAL #### [facility] [address] [place] [address] Dr. Nunu Borges WBC 4.4 103/ul Normal 4.0-11.0 [facility] Comment on above: Performed By: #### U TIFFANIE, MG, RENAL #### [facility] [address] [address] [address] Nunu Borges IRON AND TIBCon 02-13-2022 % SATURATION 17.1 % Normal [facility] Comment on above: Performed By: #### U TIFFANIE, MG, RENAL #### [facility] [address] [address] [address] Nunu Borges Iron [Mass/Vol] 56.0 ug/dL Normal 50.0-170.0 [facility] Comment on above: Performed By: #### U TIFFANIE, MG, RENAL #### [facility] [address] [place] [address] Dr. Nunu Borges TIBC DIRECT 327.0 ug/dL Normal 250.0-450.0 [facility] Comment on above: Performed By: #### U TIFFANIE, MG, RENAL #### [facility] [address] [address] [address] Nunu Borges MAGNESIUMon 02-13-2022 Magnesium [Mass/Vol] 1.8 mg/dL Normal 1.8-2.4 [facility] Comment on above: Performed By: #### U TIFFANIE, MG, RENAL #### [facility] [address] [address] [address] Nunu Borges RENAL FUNCTION PANELon 02-13 Albumin [Mass/Vol] 3.7 g/dL Normal 3.4-5.0 [facility] Comment on above: Performed By: #### U TIFFANIE, MG, RENAL #### [facility] [address] [address] [address] Nunu Borges Calcium [Mass/Vol] 9.4 mg/dL Normal 8.5-10.1 [facility] Comment on above: Performed By: #### U TIFFANIE, MG, RENAL #### [facility] [address] [address] [address] Nunu Borges Chloride [Moles/Vol] 100 mmol/L Normal 98-107 [facility] Comment on above: Performed By: #### U TIFFANIE, MG, RENAL #### [facility] [address] [address] [address] Nunu Borges CO2 [Moles/Vol] 30.0 mmol/L Normal 21.0-32.0 [facility] Comment on above: Performed By: #### U TIFFANIE, MG, RENAL #### [facility] [address] [place] [address] Dr. Nunu Borges Creatinine [Mass/Vol] 1.31 mg/dL Critically high 0.55-1.02 [facility] Comment on above: Performed By: #### U TIFFANIE, MG, RENAL #### [facility] [address] [place] [address] Dr. Nunu Borges EGFR-AF UGANDAN 49 mL/min/1.73m2 Critically low >=60 [facility] Comment on above: Performed By: #### U TIFFANIE, MG, RENAL #### [facility] [address] [place] [address] Dr. Nunu Borges EGFR-NON AF UGANDAN 40 mL/min/1.73m2 Critically low >=60 [facility] Comment on above: Performed By: #### U TIFFANIE, MG, RENAL #### [facility] [address] [place] [address] Dr. Nunu Borges Glucose [Mass/Vol] 98 mg/dL Normal 74-106 [facility] Comment on above: Performed By: #### U TIFFANIE, MG, RENAL #### [facility] [address] [place] [address] Dr. Nunu Borges Phosphate [Mass/Vol] 3.0 mg/dL Normal 2.6-4.7 [facility] Comment on above: Performed By: #### U TIFFANIE, MG, RENAL #### [facility] [address] [place] [address] Dr. Nunu Borges Potassium [Moles/Vol] 4.4 mmol/L Normal 3.5-5.1 [facility] Comment on above: Performed By: #### U TIFFANIE, MG, RENAL #### [facility] [address] [place] [address] Dr. Nunu Borges Sodium [Moles/Vol] 133 mmol/L Critically low 136-145 [facility] Comment on above: Performed By: #### U TIFFANIE, MG, RENAL #### [facility] [address] [place] [address] Dr. Nunu Borges Urea nitrogen [Mass/Vol] 23.0 mg/dL Critically high 7.0-18.0 [facility] Comment on above: Performed By: #### U TIFFANIE, MG, RENAL #### [facility] [address] [place] [address] Dr. Nunu Borges URIC ACID SERUMon 02-13-2022 Urate [Mass/Vol] 5.9 mg/dL Normal 2.6-6.0 [facility] Comment on above: Performed By: #### U TIFFANIE, MG, RENAL #### [facility] [address] [place] [address] Dr. Nunu Borges VITAMIN D 25 OHon 02-13-2022 VIT D 25-OH 70.3 ng/mL Normal [facility] Comment on above: Performed By: #### U TIFFANIE, MG, RENAL #### [facility] [address] [place] [address] Dr. Nunu Borges VIT D RANGES SEE BELOW Normal [facility] Comment on above: Result Comment: <20 ng/mL Vit D deficient 20 - <30 ng/mL Vit D insufficient 30 - 100 ng/mL Vit D sufficient >100 ng/mL Potential Toxicity Performed By: #### U TIFFANIE, MG, RENAL #### [facility] [address] [place] [address] Dr. Nunu Borges CBC AUTO DIFFon 01-27-2022 BASO # 0.0 103/ul Normal 0.0-0.1 [facility] Comment on above: Performed By: #### U TIFFANIE, MG, RENAL #### [facility] [address] [place] [address] Dr. Nunu Borges Basophils/100 WBC (Bld) 0.2 % Normal 0.2-2.0 [facility] Comment on above: Performed By: #### U TIFFANIE, MG, RENAL #### [facility] [address] [address] [address] Nunu Borges EO # 0.1 103/ul Normal 0.0-0.7 [facility] Comment on above: Performed By: #### U TIFFANIE, MG, RENAL #### [facility] [address] [address] [address] Nunu Borges Eosinophils/100 WBC (Bld) 0.9 % Normal 0.9-7.0 [facility] Comment on above: Performed By: #### U TIFFANIE, MG, RENAL #### [facility] [address] [address] [address] Nunu Borges Erythrocyte distribution width (RBC) [Ratio] 12.5 % Normal 11.0-15.0 [facility] Comment on above: Performed By: #### U TIFFANIE, MG, RENAL #### [facility] [address] [place] [address] Dr. Nunu Borges Hematocrit (Bld) [Volume fraction] 32.5 % Critically low 36.0-48.0 [facility] Comment on above: Performed By: #### U TIFFANIE, MG, RENAL #### [facility] [address] [address] [address] Nunu Borges Hemoglobin (Bld) [Mass/Vol] 10.9 g/dL Critically low 12.0-16.0 [facility] Comment on above: Performed By: #### U TIFFANIE, MG, RENAL #### [facility] [address] [address] [address] Nunu Borges IG # 0.14 10e3/ul Critically high 0.00-0.03 [facility] Comment on above: Performed By: #### U TIFFANIE, MG, RENAL #### [facility] [address] [place] [address] Dr. Nunu Borges IG % 1.5 % Critically high 0.0-0.5 [facility] Comment on above: Performed By: #### U TIFFANIE, MG, RENAL #### [facility] [address] [place] [address] Dr. Nunu Borges LYMPH # 1.5 103/ul Normal 1.2-3.8 [facility] Comment on above: Performed By: #### U TIFFANIE, MG, RENAL #### [facility] [address] [place] [address] Dr. Nunu Borges Lymphocytes/100 WBC (Bld) 15.5 % Critically low 20.5-60.0 [facility] Comment on above: Performed By: #### U TIFFANIE, MG, RENAL #### [facility] [address] [place] [address] Dr. Nunu Borges MANUAL DIFF REQ NO Normal [facility] Comment on above: Performed By: #### U TIFFANIE, MG, RENAL #### [facility] [address] [place] [address] Dr. Nunu Borges MCH (RBC) [Entitic mass] 29.6 pg Normal 26.7-34.0 [facility] Comment on above: Performed By: #### U TIFFANIE, MG, RENAL #### [facility] [address] [place] [address] Dr. Nunu Borges MCHC (RBC) [Mass/Vol] 33.5 g/dL Normal 29.9-35.2 [facility] Comment on above: Performed By: #### U TIFFANIE, MG, RENAL #### [facility] [address] [place] [address] Dr. Nunu Borges MCV (RBC) [Entitic vol] 88.3 fL Normal 81.0-99.0 [facility] Comment on above: Performed By: #### U TIFFANIE, MG, RENAL #### [facility] [address] [place] [address] Dr. Nunu Borges MONO # 1.2 103/ul Critically high 0.3-0.8 [facility] Comment on above: Performed By: #### U TIFFANIE, MG, RENAL #### [facility] [address] [place] [address] Dr. Nunu Borges Monocytes/100 WBC (Bld) 12.9 % Critically high 1.7-12.0 [facility] Comment on above: Performed By: #### U TIFFANIE, MG, RENAL #### [facility] [address] [address] [address] Nunu Borges NEUT # 6.5 103/ul Normal 1.4-6.5 [facility] Comment on above: Performed By: #### U TIFFANIE, MG, RENAL #### [facility] [address] [place] [address] Dr. Nunu Borges Neutrophils/100 WBC (Bld) 69.0 % Normal 43.0-75.0 [facility] Comment on above: Performed By: #### U TIFFANIE, MG, RENAL #### [facility] [address] [address] [address] Nunu Borges Platelet mean volume (Bld) [Entitic vol] 11.8 fL Normal 9.5-13.5 [facility] Comment on above: Performed By: #### U TIFFANIE, MG, RENAL #### [facility] [address] [place] [address] Dr. Nunu Borges PLT 239 103/ul Normal 150-450 [facility] Comment on above: Performed By: #### U TIFFANIE, MG, RENAL #### [facility] [address] [address] [address] Nunu Borges RBC 3.68 106/ul Critically low 4.20-5.40 [facility] Comment on above: Performed By: #### U TIFFANIE, MG, RENAL #### [facility] [address] [place] [address] Dr. Nunu Borges WBC 9.4 103/ul Normal 4.0-11.0 [facility] Comment on above: Performed By: #### U TIFFANIE, MG, RENAL #### [facility] [address] [place] [address] Dr. Nunu Borges POINT OF CARE GLUCOSEon 01-08 Glucose [Mass/Vol] 226 mg/dL Critically high 74-106 [facility] Comment on above: Performed By: #### U TIFFANIE, MG, RENAL #### [facility] [address] [place] [address] Dr. Nunu Borges PROF CHEM 8 (BAS METB)on Anion gap [Moles/Vol] 10.5 mmol/L Normal [facility] Comment on above: Performed By: #### U TIFFANIE, MG, RENAL #### [facility] [address] [address] [address] Nunu Borges Calcium [Mass/Vol] 8.2 mg/dL Critically low 8.5-10.1 [facility] Comment on above: Performed By: #### U TIFFANIE, MG, RENAL #### [facility] [address] [place] [address] Dr. Nunu Borges Chloride [Moles/Vol] 103 mmol/L Normal 98-107 [facility] Comment on above: Performed By: #### U TIFFANIE, MG, RENAL #### [facility] [address] [place] [address] Dr. Nunu Borges CO2 [Moles/Vol] 26.0 mmol/L Normal 21.0-32.0 [facility] Comment on above: Performed By: #### U TIFFANIE, MG, RENAL #### [facility] [address] [place] [address] Dr. Nunu Borges Creatinine [Mass/Vol] 1.04 mg/dL Critically high 0.55-1.02 [facility] Comment on above: Performed By: #### U TIFFANIE, MG, RENAL #### [facility] [address] [place] [address] Dr. Nunu Borges EGFR-AF UGANDAN >60 Normal >=60 [facility] Comment on above: Performed By: #### U TIFFANIE, MG, RENAL #### [facility] [address] [place] [address] Dr. Nunu Borges EGFR-NON AF UGANDAN 53 mL/min/1.73m2 Critically low >=60 [facility] Comment on above: Performed By: #### U TIFFANIE, MG, RENAL #### [facility] [address] [place] [address] Dr. Nunu Borges Glucose [Mass/Vol] 91 mg/dL Normal 74-106 [facility] Comment on above: Performed By: #### U TIFFANIE, MG, RENAL #### [facility] [address] [place] [address] Dr. Nunu Borges Potassium [Moles/Vol] 3.5 mmol/L Normal 3.5-5.1 [facility] Comment on above: Performed By: #### U TIFFANIE, MG, RENAL #### [facility] [address] [place] [address] Dr. Nunu Borges Sodium [Moles/Vol] 136 mmol/L Normal 136-145 [facility] Comment on above: Performed By: #### U TIFFANIE, MG, RENAL #### [facility] [address] [place] [address] Dr. Nunu Borges Urea nitrogen [Mass/Vol] 32.0 mg/dL Critically high 7.0-18.0 [facility] Comment on above: Performed By: #### U TIFFANIE, MG, RENAL #### [facility] [address] [place] [address] Dr. Nunu Borges Urea nitrogen/Creatinine [Mass ratio] 30.8 mg/mg Normal [facility] Comment on above: Performed By: #### U TIFFANIE, MG, RENAL #### [facility] [address] [place] [address] Dr. Nunu Borges CBC AUTO DIFFon 01-26-2022 BASO # 0.0 103/ul Normal 0.0-0.1 [facility] Comment on above: Performed By: #### C BC #### [facility] [address] [place] [address] Dr. Nunu Borges Basophils/100 WBC (Bld) 0.1 % Critically low 0.2-2.0 [facility] Comment on above: Performed By: #### C BC #### [facility] [address] [place] [address] Dr. Nunu Borges EO # 0.1 103/ul Normal 0.0-0.7 [facility] Comment on above: Performed By: #### C BC #### [facility] [address] [place] [address] Dr. Nunu Borges Eosinophils/100 WBC (Bld) 0.4 % Critically low 0.9-7.0 [facility] Comment on above: Performed By: #### C BC #### [facility] [address] [place] [address] Dr. Nunu Borges Erythrocyte distribution width (RBC) [Ratio] 12.2 % Normal 11.0-15.0 [facility] Comment on above: Performed By: #### C BC #### [facility] [address] [place] [address] Dr. Nunu Borges Hematocrit (Bld) [Volume fraction] 36.7 % Normal 36.0-48.0 [facility] Comment on above: Performed By: #### C BC #### [facility] [address] [place] [address] Dr. Nunu Borges Hemoglobin (Bld) [Mass/Vol] 12.1 g/dL Normal 12.0-16.0 [facility] Comment on above: Performed By: #### C BC #### [facility] [address] [place] [address] Dr. Nunu Borges IG # 0.42 10e3/ul Critically high 0.00-0.03 [facility] Comment on above: Performed By: #### C BC #### [facility] [address] [place] [address] Dr. Nunu Borges IG % 2.4 % Critically high 0.0-0.5 [facility] Comment on above: Performed By: #### C BC #### [facility] [address] [place] [address] Dr. Nunu Borges LYMPH # 0.8 103/ul Critically low 1.2-3.8 [facility] Comment on above: Performed By: #### C BC #### [facility] [address] [place] [address] Dr. Nunu Borges Lymphocytes/100 WBC (Bld) 4.5 % Critically low 20.5-60.0 [facility] Comment on above: Performed By: #### C BC #### [facility] [address] [place] [address] Dr. Nunu Borges MANUAL DIFF REQ NO Normal [facility] Comment on above: Performed By: #### C BC #### [facility] [address] [address] [address] Nunu Borges MCH (RBC) [Entitic mass] 29.2 pg Normal 26.7-34.0 [facility] Comment on above: Performed By: #### C BC #### [facility] [address] [place] [address] Dr. Nunu Borges MCHC (RBC) [Mass/Vol] 33.0 g/dL Normal 29.9-35.2 [facility] Comment on above: Performed By: #### C BC #### [facility] [address] [place] [address] Dr. Nunu Borges MCV (RBC) [Entitic vol] 88.6 fL Normal 81.0-99.0 [facility] Comment on above: Performed By: #### C BC #### [facility] [address] [place] [address] Dr. Nunu Borges MONO # 1.4 103/ul Critically high 0.3-0.8 [facility] Comment on above: Performed By: #### C BC #### [facility] [address] [place] [address] Dr. Nunu Borges Monocytes/100 WBC (Bld) 7.6 % Normal 1.7-12.0 [facility] Comment on above: Performed By: #### C BC #### [facility] [address] [place] [address] Dr. Nunu Borges NEUT # 15.0 103/ul Critically high 1.4-6.5 [facility] Comment on above: Performed By: #### C BC #### [facility] [address] [place] [address] Dr. Nunu Borges Neutrophils/100 WBC (Bld) 85.0 % Critically high 43.0-75.0 [facility] Comment on above: Performed By: #### C BC #### [facility] [address] [place] [address] Dr. Nunu Borges Platelet mean volume (Bld) [Entitic vol] 11.5 fL Normal 9.5-13.5 [facility] Comment on above: Performed By: #### C BC #### [facility] [address] [address] [address] Nunu Borges PLT 277 103/ul Normal 150-450 [facility] Comment on above: Performed By: #### C BC #### [facility] [address] [place], [place] [id number] Dr. Nunu Borges RBC 4.14 106/ul Critically low 4.20-5.40 [facility] Comment on above: Performed By: #### C BC #### [facility] [address] [address] [address] Nunu Borges WBC 17.7 103/ul Critically high 4.0-11.0 [facility] Comment on above: Performed By: #### C BC #### [facility] [address] [place] [address] Dr. Nunu Borges CULTURE BLOODon 01-26-2022 Microscopic examination of blood, culture Culture Observations: NO GROWTH AT 5 DAYS. Normal [facility] Comment on above: Performed By: #### U AMIC #### [facility] [address] [place] [address] Dr. Nunu Borges Microscopic examination of blood, culture Culture Observations: NO GROWTH AT 5 DAYS. Normal [facility] Comment on above: Performed By: #### U AMIC #### [facility] [address] [place] [address] Dr. Nunu Borges CULTURE URINEon 01-26-2022 CULTURE URINE Culture Observations: LIGHT GROWTH OF MIXED GENITAL GABRIELLE. NO POTENTIAL PATHOGENS SEEN. Normal [facility] Comment on above: Performed By: #### U AMIC #### [facility] [address] [place] [address] Dr. Nunu Borges Covid-19 PCR (CVDTB)on 01-08 SARS-CoV-2 (COVID-19) RNA GREG+probe Ql (Unsp spec) Detected Critically abnormal NOT DETECTED [facility] Comment on above: Result Comment: This test is not yet approved or cleared by the [place] FDA. When there are no FDA-approved or cleared tests available, and other criteria are met, FDA can make tests available under an emergency access mechanism called an Emergency Use Authorization (EUA). The EUA for this test is supported by the [place] of Health and Human Service's declaration that circumstances exist to justify the emergency use of in vitro diagnostics for the detection and/or diagnosis of the virus that causes COVID-19. This EUA will remain in effect for the duration of the COVID-19 declaration justifying emergency of IVDs, unless it is terminated or revoked by the FDA (after which the test may no longer be used). Performed By: #### C VDTB #### [facility] [address] [place] [address] Dr. Nunu Borges ER URINE PROFILEon 2 Bilirubin Ql (U) Negative Normal NEGATIVE [facility] Comment on above: Performed By: #### U AMIC #### [facility] [address] [place] [address] Dr. Nunu Borges Clarity (U) CLEAR Normal CLEAR [facility] Comment on above: Performed By: #### U AMIC #### [facility] [address] [place] [address] Dr. Nunu Borges Color (U) LT. YELLOW Normal YELLOW [facility] Comment on above: Performed By: #### U AMIC #### [facility] [address] [place] [address] Dr. Nunu MEZA A micrscopic examination will be performed if indicated. Normal [facility] Comment on above: Performed By: #### U AMIC #### [facility] [address] [place] [address] Dr. Nunu Borges Glucose Ql (U) Negative Normal NEGATIVE [facility] Comment on above: Performed By: #### U AMIC #### [facility] [address] [place] [address] Dr. Nunu Borges Hemoglobin Ql (U) Negative Normal NEGATIVE [facility] Comment on above: Performed By: #### U AMIC #### [facility] [address] [place] [address] Dr. Nunu Borges Ketones Ql (U) Negative Normal NEGATIVE [facility] Comment on above: Performed By: #### U AMIC #### [facility] [address] [address] [address] Nunu Borges LEUKOCYTES MODERATE Abnormal NEGATIVE [facility] Comment on above: Performed By: #### U AMIC #### [facility] [address] [address] [address] Nunu Borges Nitrite Ql (U) Negative Normal NEGATIVE [facility] Comment on above: Performed By: #### U AMIC #### [facility] [address] [address] [address] Nunu Borges pH (U) 6.0 [pH] Normal 5-9 [facility] Comment on above: Performed By: #### U AMIC #### [facility] [address] [address] [address] Nunu Borges SPEC GRAVITY 1.010 Normal 1.005-<=1.025 [facility] Comment on above: Performed By: #### U AMIC #### [facility] [address] [place] [address] Dr. Nunu Borges UA PROTEIN Negative Normal NEGATIVE/ TRACE [facility] Comment on above: Performed By: #### U AMIC #### [facility] [address] [address] [address] Nunu Borges UR MICRO IND INDICATED Normal [facility] Comment on above: Performed By: #### U AMIC #### [facility] [address] [address] [address] Nunu Borges Urobilinogen Qn (U) 0.2 {Myriam'U}/dL Normal 0.2 - 1. 0 [facility] Comment on above: Performed By: #### U AMIC #### [facility] [address] [place] [address] Dr. Nunu Borges POINT OF CARE GLUCOSEon 01-08 Glucose [Mass/Vol] 262 mg/dL Critically high 74-106 [facility] Comment on above: Performed By: #### U TIFFANIE, MG, RENAL #### [facility] [address] [place] [address] Dr. Nunu Borges PROF CHEM 8 (BAS METB)on Anion gap [Moles/Vol] 18.7 mmol/L Normal [facility] Comment on above: Performed By: #### U AMIC #### [facility] [address] [address] [address] Nunu Borges Calcium [Mass/Vol] 9.0 mg/dL Normal 8.5-10.1 [facility] Comment on above: Performed By: #### U AMIC #### [facility] [address] [address] [address] Nunu Borges Chloride [Moles/Vol] 95 mmol/L Critically low 98-107 [facility] Comment on above: Performed By: #### U AMIC #### [facility] [address] [place] [address] Dr. Nunu Borges CO2 [Moles/Vol] 20.6 mmol/L Critically low 21.0-32.0 [facility] Comment on above: Performed By: #### U AMIC #### [facility] [address] [place] [address] Dr. Nunu Borges Creatinine [Mass/Vol] 1.79 mg/dL Critically high 0.55-1.02 [facility] Comment on above: Performed By: #### U AMIC #### [facility] [address] [place] [address] Dr. Nunu Borges EGFR-AF UGANDAN 21 mL/min/1.73m2 Critically low >=60 [facility] Comment on above: Performed By: #### U AMIC #### [facility] [address] [place] [address] Dr. Nunu Borges EGFR-NON AF UGANDAN 18 mL/min/1.73m2 Critically low >=60 [facility] Comment on above: Performed By: #### U AMIC #### [facility] [address] [place] [address] Dr. Nunu Borges Glucose [Mass/Vol] 261 mg/dL Critically high 74-106 [facility] Comment on above: Performed By: #### U AMIC #### [facility] [address] [place] [address] Dr. Nunu Borges Potassium [Moles/Vol] 4.3 mmol/L Normal 3.5-5.1 [facility] Comment on above: Performed By: #### U AMIC #### [facility] [address] [address] [address] Nunu Borges Sodium [Moles/Vol] 130 mmol/L Critically low 136-145 [facility] Comment on above: Performed By: #### U AMIC #### [facility] [address] [address] [address] Nunu Borges Urea nitrogen [Mass/Vol] 54.0 mg/dL Critically high 7.0-18.0 [facility] Comment on above: Performed By: #### U AMIC #### [facility] [address] [place] [address] Dr. Nunu Borges Urea nitrogen/Creatinine [Mass ratio] 30.2 mg/mg Normal [facility] Comment on above: Performed By: #### U AMIC #### [facility] [address] [place] [address] Dr. Nunu Borges URINE MICROSCOPIC ONLYon BACTERIA TRACE Abnormal NONE SEEN [facility] Comment on above: Performed By: #### U AMIC #### [facility] [address] [place] [address] Dr. Nunu Borges Bacteria identified Cx Nom (U) INDICATED Normal [facility] Comment on above: Performed By: #### U AMIC #### [facility] [address] [place] [address] Dr. Nunu Borges CAST SEEN Abnormal NONE SEEN [facility] Comment on above: Performed By: #### U AMIC #### [facility] [address] [place] [address] Dr. Nunu Borges Crystals LM Nom (Urine sed) NONE SEEN Normal NONE SEEN [facility] Comment on above: Performed By: #### U AMIC #### [facility] [address] [place] [address] Dr. Nunu Borges Epithelial cells LM Ql (Urine sed) RARE Normal NONE SEEN /RARE [facility] Comment on above: Performed By: #### U AMIC #### [facility] [address] [address] [address] Nunu Borges HYALINE CAST RARE Normal [facility] Comment on above: Performed By: #### U AMIC #### [facility] [address] [address] [address] Nunu Borges MUCOUS NONE SEEN Normal NONE SEEN [facility] Comment on above: Performed By: #### U AMIC #### [facility] [address] [place] [address] Dr. Nunu Borges RBC 0-2 Normal 0-2 [facility] Comment on above: Performed By: #### U AMIC #### [facility] [address] [address] [address] Nunu Borges WBC 2-5 Abnormal NONE SEEN [facility] Comment on above: Performed By: #### U AMIC #### [facility] [address] [place] [address] Dr. Nunu Borges Cov[facility]-19 PCR [facility]on 01-07 SARS-CoV-2 (COVID-19) RNA GREG+probe Ql (Unsp spec) Detected Critically abnormal NOT DETECTED [facility] Comment on above: Result Comment: This test is not yet approved or cleared by the [place] FDA. When there are no FDA-approved or cleared tests available, and other criteria are met, FDA can make tests available under an emergency access mechanism called an Emergency Use Authorization (EUA). The EUA for this test is supported by the [place] of Health and Human Service's declaration that circumstances exist to justify the emergency use of in vitro diagnostics for the detection and/or diagnosis of the virus that causes COVID-19. This EUA will remain in effect for the duration of the COVID-19 declaration justifying emergency of IVDs, unless it is terminated or revoked by the FDA (after which the test may no longer be used). This test is not yet approved or cleared by the [place] FDA. When there are no FDA-approved or cleared tests available, and other criteria are met, FDA can make tests available under an emergency access mechanism called an Emergency Use Authorization (EUA). The EUA for this test is supported by the [place] of Health and Human Service's ([facility]'s) declaration that circumstances exist to justify the emergency use of in vitro diagnostics for the detection and/or diagnosis of the virus that causes COVID-19. This EUA will remain in effect (meaning this test can be used) for the duration of the COVID-19 declaration justifying emergency of IVDs, unless it is terminated or revoked by FDA (after which the test may no longer be used). Performed By: #### C [facility] #### [facility] [address] [address] [address] Nunu Borges MG MAMM SCREEN 3D RODERICK CADon 01-09-2022 MG MAMM SCREEN 3D RODERICK CAD Patient: LONDON COURTNEY Exam Date: 01/09/2022 : 1955 Gender:F Ordering : DR MARIBEL ALVRAEZ . Admission #: [id number] Family : Order #: [id number] CLICK HERE TO VIEW EXAM RADIOLOGY REPORT PROCEDURE: MAMMOGRAM SCREENING 3D BILATERAL CAD COMPARISON: MG MAMM SCREEN 3D RODERICK CAD, 10/25/2020. MG MAMM SCREEN RODERICK W CAD, 10/22/2019. INDICATIONS: Screening mammography Calculator Name NCI Breast Cancer Risk Assessment Tool 5 Year Breast Cancer Risk 1.40% Lifetime Breast Cancer Risk 4.60% Personal Breast Cancer No Personal Ovarian Cancer No Treatments None Family Cancers None [facility] BREAST COMPOSITION: Almost entirely fatty. FINDINGS: DIAGNOSTIC CATEGORY 1--NEGATIVE. NO CHANGE FROM COMPARISON ASSESSMENT. Scattered benign-appearing nodules are present. Scattered benign-appearing calcifications are present. RIGHT BREAST: No significant suspicious finding. LEFT BREAST: No significant suspicious finding. RECOMMENDATIONS: ROUTINE MAMMOGRAM AND CLINICAL EVALUATION IN 12 MONTHS. PLEASE NOTE: A NORMAL MAMMOGRAM DOES NOT EXCLUDE THE POSSIBILITY OF BREAST CANCER. A CLINICALLY SUSPICIOUS PALPABLE LUMP SHOULD BE BIOPSIED. Dictated by: Connie Licea MD on 01/09/2022 at 12:49 Approved by: Connie Licea MD on 01/09/2022 at 12:50 Normal [facility] Cytologyon 07-20-2020 Cytology (NOTE) INTERPRETATION Cervical material, (ThinPrep vial, Imaging-assisted review): Specimen Adequacy: Satisfactory for evaluation. - Endocervical/transfo rmation zone component present. Descriptive Diagnosis: Negative for intraepithelial lesion or malignancy. Property Damage Claims Adjustor: CARLOS Steward(ASCP) Electronically Signed Out chris/07/22/2020 Source: 1: Cervical material, (ThinPrep vial, Imaging-assisted review) Clinical History Postmenopausal Z12.4 Encounter for screening for malignant neoplasm of cervix GYNECOLOGIC CYTOLOGY REPORT Patient Name: LONDON COURTNEY Med Rec: [id number] Path Number: [id number] [facility] ANATOMIC PATHOLOGY [address] [place] [id number] [facility] Comment on above: Performed By: #### P PPVP #### [address] [address] Seo Associate: Jeremiah Acosta MD Main OR Intraoperative Recor handy 11-06-2017 Main OR Intraoperative Record IntraOp Document Type FTURO Summary Primary Physician: Juan Delarosa Jr., MD Finalized Date/Time: 11/06/17 12:28:35 Pt. Name: LONDON COURTNEY Kvng Vu/Sex: 1955 Female Med Rec #: [id number] Physician: Juan Delarosa Jr., MD Financial #: [id number] Pt. Type: O Room/Bed: / Admit/Disch: 10/11/17 12:38:00 - 10/11/17 23:59:00 Institution: Case Times FTURO Entry 1 Patient Times In Room 10/11/17 13:16:00 Out Room 10/11/17 13:22:00 Procedure Times Start 10/11/17 13:18:00 Stop 10/11/17 13:21:00 Anesthesia Times Last Modified By: SAAD Simons RNORKeerthi 10/11/17 13:21:50 Case Attendance FTURO Entry 1 Entry 2 Entry 3 Case Attendee Kristyn PRADHAN, SAADORKeerthi CST, Juan Mccann Jr., MD Role Performed Automatic Stacker - Primary Scrub - Primary Surgeon - Primary Time In 10/11/17 13:16:00 10/11/17 13:16:00 10/11/17 13:18:00 Time Out 10/11/17 13:22:00 10/11/17 13:22:00 10/11/17 13:22:00 Procedure CYSTOSCOPY LOCAL(.) CYSTOSCOPY LOCAL(.) CYSTOSCOPY LOCAL(.) Comments Last Modified By: Kristyn PRADHAN, SAADOR, SAAD Bermudez RNORKeerthi RN, CNOR, Lou Ann 10/11/17 13:21:53 10/11/17 13:21:53 10/11/17 13:21:53 Surgical Procedures FTURO Entry 1 Procedure Description Procedure CYSTOSCOPY LOCAL Modifiers . Surgeon Description CYSTOSCOPY with dilitation Primary Procedure Yes Primary Surgeon Washington Stokes MD, Juan Rios Start 10/11/17 13:18:00 Stop 10/11/17 13:21:00 Anesthesia Type Local Surgical Service Urology Wound Class 2 - Clean-Contaminated Last Modified By: SAAD Simons RNORKeerthi 10/11/17 13:21:46 General Case Data FTURO Pre-Care Text: Classifies surgical wound, implements aseptic technique, initiates traffic control Entry 1 Case Information OR URO 1 FT Case Level None Wound Class 2 - Clean-Contaminated Specialty Urology Preop Diagnosis GROSS HEMATURIA, RENAL Postop Same As Preop No FAILURE Postop Diagnosis GROSS HEMATURIA, RENAL Outcomes Met? Yes FAILURE, urethral stenosis Last Modified By: KIET Simons RN, Lou Ann 10/11/17 13:22:28 Post-Care Text: The patient is free from signs and symptoms of infection EU IntraOp - FTURO Pre-Care Text: Implements protective measures prior to operative or invasive procedure, confirms identity before the operative or invasive procedure, verifies operative procedure, surgical site, and laterality Entry 1 EU Perioperative Protocols Procedure(s) CYSTOSCOPY LOCAL(.) Patient Identity Birthday, ID Band Verified (select at Check, Patient least 2): Participation Consents / H and P HandP, Surgery/Procedure Operative Site N/A Verified Consent Marking Verified Surgical Site Yes Laterality Verified n/a Verified Procedure Verified Yes Correct Patient Yes Position Verified Availability Equipment, Medication Time Out Washington Stokes MD, Juan Rios, Verified (If Participants Kristyn PRADHAN, SAADOR, Keerthi Applicable) 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 Yes Allergies Reviewed Self/Patient With Body Position Frog Legged Prep Area PERINIUM Prep Agents Betadine Solution Skin. Condition Intact, Winifred, Warm, and Dry Additional None Specimens Collected Vitals - EU Blood Pressure Pulse Respirations SPO2 EBL 0 IandO - EU Total Intake 0 mL Total Output 0 mL Outcomes Met? Yes Last Modified By: KIET Simons RN, Lou Ann 10/11/17 13:21:36 Post-Care Text: The patient is free from signs and symptoms of injury caused by extraneous objects Case Comments Finalized By: KIET Simons RN, Lou Ann Document Signatures Signed By: KIET Simons RN, Lou Ann 10/11/17 13:21 KIET Simons RN, Lou Ann 11/06/17 12:28 Normal [facility] Main OR Preoperative Recordo n 11-06-2017 Main OR Preoperative Record Holding Area Document Type FTURO Summary Primary Physician: Juan Delarosa Jr., MD Finalized Date/Time: 11/06/17 12:28:41 Pt. Name: LONDON COURTNEY/Sex: 1955 Female Med Rec #: [id number] Physician: Juan Delarosa Jr., MD Financial #: [id number] Pt. Type: O Room/Bed: / Admit/Disch: 10/11/17 12:38:00 - 10/11/17 23:59:00 Institution: Case Times Holding FTURO Pre-Care Text: Verifies consent for planned procedure, identifies individual values and wishes concerning care, includes family members in perioperative teaching Secures patient's records' belongings, and valuables, maintains patient's dignity and privacy, and maintains patient confidentiality Entry 1 In Holding 10/11/17 12:55:00 Outcomes Met? Yes Last Modified By: Karen Rutherford LPN 10/11/17 12:55:33 Post-Care Text: The patient participates in decisions affecting his or her perioperative plan of care The patient's right to privacy is maintained Surgery Checklist FTURO Entry 1 Patient Birthday, ID Band Procedure History and Physical, Identification: Check, Patient Verification: Surgical Consent, With Participation Patient NPO after Midnight: n/a Personal Items: Glasses, Jewelry Personal Items watch, earrings Complaints of Pain: No Comment: Skin Integrity Intact, Winifred, Warm, & Dry Vitals - EU Blood Pressure 98/55 Pulse 76 bpm Respirations 18 br/min SPO2 RN Reviewed Yes Last Modified By: KIET Simons RN, Lou Ann 10/11/17 13:00:54 Finalized By: KIET Simons RN, Lou Ann Document Signatures Signed By: KIET Simons RN, Lou Ann 10/11/17 13:00 Karen Rutherford LPN 10/11/17 12:58 KIET Simons RN, Lou Ann 11/06/17 12:28 Normal [facility] Coding Summary.on 10-19-2017 Coding Summary. 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, female N20.0 Calculus of kidney E78.5 Hyperlipidemia, unspecified I13.10 Hypertensive heart and chronic kidney disease without heart failure, with stage 1 through stage 4 chronic kidney disease, or unspecified chronic kidney disease E11.22 Type 2 diabetes mellitus with diabetic chronic kidney disease N18.9 Chronic kidney disease, unspecified 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 However, the narrative phrase printed from the coding software may appear abbreviated, or result in slightly different terminology. Coded By: Ellie Saldaña Date Saved: 10/19/2017 08:52 am Normal [facility] Operative Reporton 8 Operative Report Patient: LONDON COURTNEY Age: 61 years Sex: Female : 1955 Associated Diagnoses: None Author: Washington Stokes MD, Juan Rios Procedure Operative Information Details: Date/ Time: 10/11/17 13:25:00. 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 Post-Op Dx: Same. Anesthesia Type: Local. Procedure: Local Cystoscopy with Urethral Dilation. Complications: None. Risks/Benefits/Infor med Consent: Surgical risks, benefits, details of the procedure have been explained to the patient, Full informed consent has been obtained. Intraoperative Information Prepped: Patient is brought back to the endoscopy suite, Patient is placed in modified dorso/lithotomy position, Patient prepped in the usual fashion with Betadine solution, 2% Xylocaine Jelly is placed per Urethra, After waiting several minutes the Cystoscope is introduced. The Urethra is: Tight. The Bladder is: Trabeculated None (0), The bladder shows signs of cystitis cystica. No bladder tumors were identified no other mucosal lesions were noted.. The ureteral orifices: Show efflux of clear urine. The Urethra was dilated to: 30 Sinhala w/ sounds. Devices Implanted: None. Removal: Cystoscope is removed, The patient tolerated it well. Postoperative Information Discharge: Patient is discharged home with antibiotic coverage, Follow up arranged, The patient will follow up on a when necessary basis. I did review the results of the computed tomography scan which showed a 3 mm left renal calculus that was nonobstructing. Urine cytology/FISH are negative. This completes her hematuria workup.. [facility] Comment on above: Result Comment: Elec tronically Signed By: Washington Stokes MD, Juan Rios\.dany\Date and Time Signed: 10/11/17 13:26 EDT Vital Signs Date Time Vital Sign Value Performing Clinician Facility 04-05-2023 10:00-0500 Body height 154.94 cm Ghislaine Kirkpatrick Other [facility] Other 04-05-2023 10:00-0500 Body mass index (BMI) [Ratio] 29.85 kg/m2 Ghislaine Ada Other [facility] Other 04-05-2023 10:00-0500 Body temperature 97.2 [degF] Ghislaine Omalleydir Other [facility] Other 04-05-2023 10:00-0500 Body weight 71.67 kg Ghislaine Ada Other [facility] Other 04-05-2023 10:00-0500 Diastolic blood pressure 60 mm[Hg] Ghislaine Ada Other [facility] Other 04-05-2023 10:00-0500 Respiratory rate 18 /min Ghislaine Ada Other [facility] Other 04-05-2023 10:00-0500 SaO2% (BldA) [Mass fraction] 98 % Ghislaine Ada Other [facility] Other 04-05-2023 10:00-0500 Systolic blood pressure 124 mm[Hg] Ghislaine Ada Other [facility] Other 09-07-2022 14:00-0400 Body height 154.94 cm Ghislaine Ada Other [facility] Other 09-07-2022 14:00-0400 Body mass index (BMI) [Ratio] 29.47 kg/m2 Ghislaine Ada Other [facility] Other 09-07-2022 14:00-0400 Body temperature 97.3 [degF] Ghislaine Ada Other [facility] Other 09-07-2022 14:00-0400 Body weight 70.76 kg Ghislaine Ada Other [facility] Other 09-07-2022 14:00-0400 Diastolic blood pressure 70 mm[Hg] Ghislaine Ada Other [facility] Other 09-07-2022 14:00-0400 Respiratory rate 18 /min Ghislaine Ada Other [facility] Other 09-07-2022 14:00-0400 SaO2% (BldA) [Mass fraction] 97 % Ghislaine Ada Other [facility] Other 09-07-2022 14:00-0400 Systolic blood pressure 110 mm[Hg] Ghislaine Ada Other [facility] Other 03-23-2022 11:20-0500 Body height 154.94 cm Ghislaine Ada Other [facility] Other 03-23-2022 11:20-0500 Body mass index (BMI) [Ratio] 28.75 kg/m2 Ghislaine Ada Other [facility] Other 03-23-2022 11:20-0500 Body temperature 96.2 [degF] Ghislaine Ada Other [facility] Other 03-23-2022 11:20-0500 Body weight 69.04 kg Ghislaine Ada Other [facility] Other 03-23-2022 11:20-0500 Diastolic blood pressure 80 mm[Hg] Ghislaine Ada Other [facility] Other 03-23-2022 11:20-0500 Respiratory rate 18 /min Ghislaine Ada Other [facility] Other 03-23-2022 11:20-0500 SaO2% (BldA) [Mass fraction] 96 % Ghislaine Ada Other [facility] Other 03-23-2022 11:20-0500 Systolic blood pressure 122 mm[Hg] Ghislaine Ada Other [facility] Other 09-01-2021 11:00-0400 Body height 154.94 cm Ghislaine Ada Other [facility] Other 09-01-2021 11:00-0400 Body mass index (BMI) [Ratio] 31.29 kg/m2 Ghislaine Ada Other [facility] Other 09-01-2021 11:00-0400 Body temperature 96.8 [degF] Ghislaine Ada Other [facility] Other 09-01-2021 11:00-0400 Body weight 75.12 kg Ghislaine Aad Other [facility] Other 09-01-2021 11:00-0400 Diastolic blood pressure 74 mm[Hg] Ghislaine Ada Other [facility] Other 09-01-2021 11:00-0400 Respiratory rate 18 /min Ghislaine Ada Other [facility] Other 09-01-2021 11:00-0400 SaO2% (BldA) [Mass fraction] 97 % Ghislaine Ada Other [facility] Other 09-01-2021 11:00-0400 Systolic blood pressure 130 mm[Hg] Ghislaine Ada Other [facility] Other 02-10-2021 10:20-0400 Body height 154.94 cm Ghislaine Ada Other [facility] Other 02-10-2021 10:20-0400 Body mass index (BMI) [Ratio] 30.83 kg/m2 Ghislaine Ada Other [facility] Other 02-10-2021 10:20-0400 Body temperature 96 [degF] Ghislaine Ada Other [facility] Other 02-10-2021 10:20-0400 Body weight 74.03 kg Ghislaine Ada Other [facility] Other 02-10-2021 10:20-0400 Diastolic blood pressure 74 mm[Hg] Ghislaine Ada Other [facility] Other 02-10-2021 10:20-0400 Respiratory rate 18 /min Ghislaine Ada Other [facility] Other 02-10-2021 10:20-0400 SaO2% (BldA) [Mass fraction] 94 % Ghislaine Ada Other [facility] Other 02-10-2021 10:20-0400 Systolic blood pressure 110 mm[Hg] Ghislaine Ada Other [facility] Other Encounters Encounter Date Encounter Type Care Provider Facility Start: 06-19-2023 End: 06-19-2023 ambulatory ANAIS MELTON Not Available Start: 06-12-2023 End: 06-12-2023 ambulatory MARIBEL ALVAREZ Not Available Start: 04-05-2023 End: 04-05-2023 ambulatory Ghislaine Ada Other [facility] Other Start: 04-05-2023 Office outpatient vi sit 25 minutes Ghislaine Ada [facility] Start: 09-07-2022 End: 09-07-2022 ambulatory Ghislaine Ada Other [facility] Other Start: 09-07-2022 Office outpatient vi sit 15 minutes Ghislaine Ada [facility] Start: 08-31-2022 End: 09-01-[address] MARIBEL ALVAREZ Facility:[facility] Start: 08-18-2022 End: 08-19-[address] MARIBEL ALVAREZ Facility:[facility] Start: 07-26-2022 End: 07-26-[address] MARIBEL ALVAREZ Facility:[facility] Start: 07-18-2022 End: 07-18-2022 ambulatory Ghislaine Ada Other [facility] Other Start: 07-18-2022 Telephone encounter Ghislaine Ada [facility] Start: 03-23-2022 End: 03-23-2022 ambulatory Ghislaine Ada Other [facility] Other Start: 03-23-2022 Office outpatient vi sit 25 minutes Ghislaine Ada [facility] Start: 02-14-2022 End: 02-14-[address] MARIBEL ALVAREZ Facility:[facility] Start: 02-13-2022 End: 02-14-[address] MARIBEL ALVAREZ Facility:[facility] Start: 01-26-2022 End: 01-27-[address] MARIBEL ALVAREZ Facility:[facility] Start: 01-16-2022 End: 01-16-[address] MARIBEL ALVAREZ Facility:[facility] Start: 01-09-2022 End: 01-10-[address] MARIBEL ALVAREZ Facility:[facility] Start: 10-18-2021 End: 10-19-[address] MARIBEL ALVAREZ Facility:[facility] Start: 09-13-2021 End: 09-13-2021 ambulatory Ghislaine Ada Other [facility] Other Start: 09-13-2021 Telephone encounter Ghislaine Ada [facility] Start: 09-01-2021 End: 09-01-2021 ambulatory Ghislaine Ada Other [facility] Other Start: 09-01-2021 Office outpatient vi sit 25 minutes Ghislaine Ada [facility] Start: 09-01-2021 Telephone encounter Ghislaine Ada [facility] Start: 08-22-2021 End: 08-22-2021 ambulatory Ghislaine Ada Other [facility] Other Start: 08-22-2021 Telephone encounter Ghislaine Ada [facility] Start: 08-15-2021 End: 08-15-2021 ambulatory Ghislaine Ada Other [facility] Other Start: 08-15-2021 Telephone encounter Ghislaine Ada [facility] Start: 05-24-2021 End: 05-24-2021 ambulatory Ghislaine Ada Other [facility] Other Start: 05-24-2021 Telephone encounter Ghislaine Ada [facility] Start: 02-21-2021 End: 02-21-2021 ambulatory Ghislaine Ada Other [facility] Other Start: 02-21-2021 Telephone encounter Ghislaine Ada [facility] Start: 02-11-2021 End: 02-11-2021 ambulatory Ghislaine Ada Other [facility] Other Start: 02-11-2021 Telephone encounter Ghislaine Ada [facility] Start: 02-10-2021 End: 02-10-2021 ambulatory Ghislaine Ada Other [facility] Other Start: 02-10-2021 Office outpatient vi sit 25 minutes [facility] Start: 07-20-2020 End: 07-21-2020 Patient encounter procedure MARIBEL ALVAREZ [facility] Start: 10-11-2017 End: 10-12-2017 Patient encounter Bakari Berg [place] [place] Date [place]ayer Category Payer Private Health Insurance [id number] 2020 Unknown [id number] 2017 Private Health Insurance [id number] Self-pay 1955 Unknown [id number] 2.16.8 [id number] 1955 Unknown [id number] 2.16.84 [id number] 1955 Unknown [id number] 2.16.84 [id number] 1955 Unknown [id number] 2.16.84 [id number] 1955 Unknown [id number] 2.16.84 0.1.613453.3.579.2.593 1955 Unknown [id number] 2.16.84 0.1.727279.3.579.2.593 1955 Unknown [id number] 2.16.84 0.1.943746.3.579.2.593 1955 Unknown [id number] 2.16.84 0.1.137545.3.579.2.593 1955 Unknown [id number] 2.16.84 0.1.921565.3.579.2.593 1955 Unknown [id number] 2.16.84 0.1.334075.3.579.2.593 1955 Unknown [id number] 2.16.84 0.1.585078.3.579.2.593 1955 Unknown [id number] 2.16.84 [id number] 1955 Unknown [id number] 2.16.84 0.1.464288.3.579.2.1259 1955 Unknown [id number] 2.16.84 [id number] Medicare [id number] 2. [id number] Unknown [id number] 2.16.84 [id number] Social History Date Type Detail Facility Unknown if ever smoked [facility] Other Sex Assigned At Sex Assigned At Bir th [facility] Other Clinical Notes 12-27-2016 to 04-05-2023 Note Date & Type Note Facility 04-05-2023 Evaluation note Encounter Date Diagnosis Assessment Notes Mar, Chronic kidney disease, stage III (moderate) (ICD-10 - N18.30) She has CKD due to longstanding DM and HTN. Her renal US showed mild b/l Cortical atrophy and nonobstructive renal stone. Her baseline serum creatinine is 1.2 to 1.3 mg/dL. She has no evidence of proteinuria. I have discussed with her the importance of good HTN control to slow down the progression of disease. Mar, Hypertensive chronic kidney disease with stage 1 through stage 4 chronic kidney disease, or unspecified chronic kidney disease (ICD-10 - I12.9) Blood pressure is well controlled on current regimen. She appears to be euvolemic so I have advised her to limit her fluid intake to 50 ounces a day. I will continue same medications. I have advised her to monitor her weight and if she gains more than 2 pounds in 24 hours or 5 pounds in a week then call office. Mar, Type 2 diabetes mellitus with diabetic chronic kidney disease (ICD-10 - E11.22) Her Blood sugars are within the acceptable range. I have advised her to continue to work with PCP for DM management. She has no evidence of proteinuria. Continue current dose of Losartan. I would recommend to stop metformin if her eGFR drops below 30 ml/min. I discussed with her the option of Farxiga or Jardiance. I explained to her due to her well-controlled diabetes and risk of hypovolemia I suggest not to take any of those medications Mar, Secondary hyperparathyroidism (ICD-10 - N25.81) MBD parameters including calcium, phosphorus, PTH and vitamin D are within the goal. Continue oral vitamin D Mar, Dyslipidemia (ICD-10 - E78.5) Continue statins. Continue to monitor LFTs and lipid profile with PCP [facility] Other 06-01-2023 Evaluation note* Encounter Date Diagnosis Assessment Notes Treatment Notes Treatment Clinical Notes Sep, Chronic kidney disea se, stage III (moderate) (ICD-10 - N18.30) She has CKD due to longstanding DM and HTN. Her renal US showed mild b/l Cortical atrophy and nonobstructive renal stone. Her baseline serum creatinine is 1.3 to 1.5 g/dL. She has no evidence of proteinuria. I have discussed with her the importance of good HTN control to slow down the progression of disease. Sep, Hypertensive chronic kidney disease with stage 1 through stage 4 chronic kidney disease, or unspecified chronic kidney disease (ICD-10 - I12.9) Blood pressure is well controlled on current regimen. She appears to be euvolemic so I have advised her to limit her fluid intake to 50 ounces a day. I will continue same medications. I have advised her to monitor her weight and if she gains more than 2 pounds in 24 hours or 5 pounds in a week then call office. Sep, Type 2 diabetes adam itus with diabetic chronic kidney disease (ICD-10 - E11.22) Her Blood sugars are within the acceptable range. I have advised her to continue to work with PCP for DM management. She has no evidence of proteinuria. Continue current dose of Losartan. I would recommend to stop metformin if her eGFR drops below 30 ml/min. I discussed with her the option of Farxiga or Jardiance. I explained to her due to her well-controlled diabetes and risk of hypovolemia I suggest not to take any of those medications Sep, Secondary hyperparathyroidism (ICD-10 - N25.81) MBD parameters including calcium, phosphorus, PTH and vitamin D are within the goal. Continue oral vitamin D Sep, Dyslipidemia (ICD-10 - E78.5) Continue statins. Continue to monitor LFTs and lipid profile with PCP [email or web address] Other 05-12-2023 NotePROCEDURE: XR KNEE LT 3V HISTORY: Pain of joint of knee ; acute left knee pain COMPARISON: None. FINDINGS: BONES:No fracture, acute abnormality, or significant arthropathy. SOFT TISSUES:No visible soft tissue swelling. EFFUSION:None visible. OTHER: Negative. IMPRESSION: 1. No appreciable acute abnormality or significant degenerative joint disease. Electronically authenticated by: PEGGY CORTEZ Date: 2022-08-18 12:27[facility]12-15-2022 Evaluation note* Encounter Date Diagnosis Assessment Notes Treatment Notes Treatment Clinical Notes Mar, Chronic kidney disea se, stage III (moderate) (ICD-10 - N18.30) She has CKD due to longstanding DM and HTN. Her renal US showed mild b/l Cortical atrophy and nonobstructive renal stone. Her baseline serum creatinine is 1.3 to 1.5 g/dL. She has no evidence of proteinuria. I have discussed with her the importance of good HTN control to slow down the progression of disease. Mar, Hypertensive chronic kidney disease with stage 1 through stage 4 chronic kidney disease, or unspecified chronic kidney disease (ICD-10 - I12.9) Blood pressure is well controlled on current regimen. She appears to be hypervolemic so I have advised her to limit her fluid intake to 50 ounces a day. I will continue same medications. I have advised her to monitor her weight and if she gains more than 2 pounds in 24 hours or 5 pounds in a week then call office. Mar, Type 2 diabetes adam itus with diabetic chronic kidney disease (ICD-10 - E11.22) Her Blood sugars are within the acceptable range. I have advised her to continue to work with PCP for DM management. She has no evidence of proteinuria. Continue current dose of Losartan. I would recommend to stop metformin if her eGFR drops below 30 ml/min. I discussed with her the option of Farxiga or Jardiance are currently off. I explained to her due to her well-controlled diabetes and risk of hypovolemia I suggest not to take any of those medications Mar, Anemia of renal dise ase (ICD-10 - D63.1) Hemoglobin is within the goal and low Iron. She had a colonoscopy in 2016. Continue oral Iron every other day. I have advised the patient to follow-up with a GI to see if she is due for colonoscopy. Mar, Secondary hyperparathyroidism (ICD-10 - N25.81) MBD parameters including calcium, phosphorus, PTH and vitamin D are within the goal. Continue oral vitamin D [facility] Other 07-12-2022 NotePROCEDURE: XR PELVIS W_OBL MIN 3 VIEWS COMPARISON: None. HISTORY: Fracture of pubis FINDINGS: BONES:Mild to moderate right hip osteoarthritis. Severe left hip osteoarthritis with remodeling of the acetabulum and femoral head. Mixed lytic and sclerotic appearance of the left superior and inferior pubic ramus consistent with subacute or chronic fractures. Degenerative spondylosis of the spine. no acute fracture or dislocation SOFT TISSUES:Negative. No visible soft tissue swelling. EFFUSION:None visible. OTHER: Vascular calcifications IMPRESSION: Mild to moderate right and severe left hip osteoarthritis Electronically authenticated by: CONNIE LICEA Date: 2021-10-18 19:13[facility]05-26-2022 Evaluation note* Encounter Date Diagnosis Assessment Notes Treatment Notes Treatment Clinical Notes August, Chronic kidney disea se, stage III (moderate) (ICD-10 - N18.30) She has CKD due to longstanding DM and HTN. Her renal US showed mild b/l Cortical atrophy and nonobstructive renal stone. Her Serum Creatinine is 1.5 mg/dl above above her baseline Serum Creatiine 1.2 mg/dl with no evidence of proteinuria. Her EGFR has dropped compared to last visit. I have discussed with her the importance of good HTN control to slow down the progression of disease. August, Hypertensive chronic kidney disease with stage 1 through stage 4 chronic kidney disease, or unspecified chronic kidney disease (ICD-10 - I12.9) Blood pressure is well controlled on current regimen. She appears to be hypervolemic so I have advised her to limit her fluid intake to 50 ounces a day. I will continue same medications. I have advised her to monitor her weight and if she gains more than 2 pounds in 24 hours or 5 pounds in a week then call office. August, Type 2 diabetes adam itus with diabetic chronic kidney disease (ICD-10 - E11.22) Her Blood sugars are within the acceptable range. I have advised her to continue to work with PCP for DM management. She has no evidence of proteinuria. Continue current doser of Losartan. I would recommend to stop metformin if her eGFR drops below 30 ml/min. August, Anemia of renal dise ase (ICD-10 - D63.1) Hemoglobin is within the goal and low Iron. She had a colonoscopy in 2016. Continue oral Iron every other day. I have advised the patient to follow-up with a GI to see if she is due for colonoscopy. August, Secondary hyperparathyroidism (ICD-10 - N25.81) MBD parameters including calcium, phosphorus, PTH and vitamin D are within the goal. Continue oral vitamin D [facility] Other 05-26-2022 Evaluation note* Encounter Date Diagnosis Assessment Notes Treatment Notes Treatment Clinical Notes August, Type 2 diabetes mellitus with diabetic chronic kidney disease (ICD-10 - E11.22) [facility] Other 11-04-2021 Evaluation note* Encounter Date Diagnosis Assessment Notes Treatment Notes Treatment Clinical Notes Feb, Chronic kidney disea se, stage III (moderate) (ICD-10 - N18.30) She has CKD due to longstanding DM and HTN. Her renal US showed mild b/l Cortical atrophy and nonobstructive renal stone. Her Serum Creatinine is 1.5 mg/dl above above her baseline Serum Creatiine 1.2 mg/dl with no evidence of proteinuria. Her EGFR has dropped compared to last visit. I have discussed with her the importance of good HTN control to slow down the progression of disease. I have prescribed oral magnesium due to the hypomagnesemia. Likely she has hypomagnesemia due to the diuretics induced renal magnesium wasting. Feb, Anemia of renal dise ase (ICD-10 - D63.1) Hemoglobin is within the goal. Will check iron studies. She had a colonoscopy in 2016. Feb, Hypertensive chronic kidney disease with stage 1 through stage 4 chronic kidney disease, or unspecified chronic kidney disease (ICD-10 - I12.9) Blood pressure is well controlled on current regimen. I will continue same medications. Feb, Type 2 diabetes adam itus with diabetic chronic kidney disease (ICD-10 - E11.22) Her Blood sugars are within the acceptable range. I have advised her to continue to work with PCP for DM management. She has no evidence of proteinuria. Continue current doser of Losartan. I have decreased metformin to 500 mg/dl BID as her eGFR drops below 45 ml/min. Feb, Secondary hyperparathyroidism (ICD-10 - N25.81) Her calcium is within the goal and Vit D is normal. [facility] Other 09-20-2017 History general Narrative - Reported* Type Description Date Medical History diabetes mellitus Medical History hypertension Medical History hyperlipidemia Surgical History COLONOSCOPY NORMAL P ER PATIENT AT [facility] 12-27-2016 Hospitalization History [facility] Other 09-20-2017 History general Narrative - Reported* Type Description Date Medical History diabetes mellitus Medical History hypertension Medical History hyperlipidemia Surgical History COLONOSCOPY NORMAL P ER PATIENT AT [facility] 12-27-2016 Hospitalization History 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 08/09/2021 [facility] Other 09-20-2017 History general Narrative - Reported* Type Description Date Medical History diabetes mellitus Medical History hypertension Medical History hyperlipidemia Surgical History COLONOSCOPY NORMAL P ER PATIENT AT [facility] 12-27-2016 Hospitalization History 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, UTI, SEPSIS 08/09/2021 [facility] Other 09-20-2017 History general Narrative - Reported* Type Description Date Medical History diabetes mellitus Medical History hypertension Medical History hyperlipidemia Medical History OSTEOPOROSIS Surgical History COLONOSCOPY NORMAL P ER PATIENT AT [facility] 12-27-2016 Hospitalization History 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, UTI, SEPSIS 08/09/2021 [facility] Other Evaluation noteNo [email or web address] Other [email or web address] Other History general Narrative - ReportedNotenet [email or web address] Other Summary Purpose Family History No Family History Records FoundNo Family History Records FoundNo Family History Records FoundNo Family History Records Found Advance Directives No Advanced Directives Records FoundNo Advanced Directives Records FoundNo Advanced Directives Records FoundNo Advanced Directives Records Found Additional Source Comments INFORMATION SOURCE (unrecogn ized section and content) DATE CREATED AUTHOR 12/05/2017 [facility] DATE CREATED AUTHOR AUTHOR'S ORGANIZ ATION 07/23/2020 [facility] DATE CREATED AUTHOR AUTHOR'S ORGANIZ ATION 09/16/2022 [facility] DATE CREATED AUTHOR AUTHOR'S ORGANIZ ATION 06/20/2023 [facility] EPIC REASON FOR VISIT (unrecogniz ed section and content) CKDClinicalWHAT DRINKS OKOK TO TAKE MEDMED QUESTIONSCKD and HTNNo InformationNo InformationMED ??CKD and HTNOK TO TAKE PREP FOR COLONOSCOPYCKD and HTNCKD and HTN FOR RECORDS PERTAINING TO PATIENTS WHO ARE OR HAVE BEEN ENROLLED IN A CHEMICAL DEPENDENCY/SUBSTANCEABUSE PROGRAM, SOME INFORMATION MAY BE OMITTED. This clinical summary was aggregated from multiple sources. Caution should be exercised in using it in the provision of clinical care. This summary normalizes information from multiple sources, and as a consequence, information in this document may materially change the coding, format and clinical context of patient data. In addition, data may be omitted in some cases. CLINICAL DECISIONS SHOULD BE BASED ON THE PRIMARY CLINICAL RECORDS. [employer] provides no warranty or guarantee of the accuracy or completeness of information in this document.
[2023-06-22 11:33] LABS: Estimated Average Glucose 126 mg/dL
== END 2023-06-22 09:07 | disposition home or self-care (01) ==
LOC: LAB 09:06
PROVIDERS: PCP Family Medicine; Visit Provider Family Medicine
DX: E11.65 Type 2 diabetes mellitus with hyperglycemia (principal)
CPT/HCPCS: 36415; 83036

== ENCOUNTER 2023-06-29 12:33 | Outpatient (RCR) | payer OTHER, SELFPAY | END 2023-07-19 13:12 | disposition home or self-care (01) | LOC: PT 12:33 | PROVIDERS: PCP Family Medicine; Visit Provider Family Medicine | DX: R26.81 Unsteadiness on feet (principal); R53.1 Weakness; M16.12 Unilateral primary osteoarthritis, left hip; M17.12 Unilateral primary osteoarthritis, left knee; M51.36 Other intervertebral disc degeneration, lumbar region | CPT/HCPCS: 97010; 97110; 97140; 97163; 97530 ==

== ENCOUNTER 2023-07-05 09:09 | Outpatient (OUT) | payer OTHER, SELFPAY ==
--- NOTE | 2023-07-05 09:12 | XR_ITS ---
[place] [id number] Patient Name: LONDON COURTNEY MRN: [id number] date: 1955 Sex: F Assigned Patient Location: [facility] Current Patient Location: [facility] Accession/Order Number: [id number] Exam Date: 07/05/2023 09:20 Report Date: 07/05/2023 12:11 At the request of: MARIBEL ALVAREZ Procedure: XR hip LT min 2V PROCEDURE: XR hip LT min 2V COMPARISON: None. HISTORY: Primary Osteoarthritis Of Left Hip M16.12 FINDINGS: BONES:No acute fracture or dislocation. Severe osteoarthritis with marked bony remodeling. Flattening of the femoral head. SOFT TISSUES:Negative. No visible soft tissue swelling. EFFUSION:None visible. OTHER: Negative. XR/XR hip LT min 2V IMPRESSION: Severe osteoarthritis Electronically authenticated by: CONNIE LICEA Date: 07/05/2023 12:11
== END 2023-07-05 09:10 | disposition home or self-care (01) ==
LOC: RAD 09:09
PROVIDERS: PCP Family Medicine; Visit Provider Family Medicine
DX: M16.12 Unilateral primary osteoarthritis, left hip (principal)
CPT/HCPCS: 73502

== ENCOUNTER 2023-09-04 09:18 | Outpatient (OUT) | payer OTHER, SELFPAY ==
[2023-09-04 10:20] LABS: Hematocrit 35.8 % (36.0-48.0); Hemoglobin 11.2 g/dL (12.0-16.0); Mean Corpuscular HGB Conc 31.3 g/dL (29.9-35.2); Mean Corpuscular Hemoglobin 29.9 pg (26.7-34.0); Mean Corpuscular Volume 95.5 fL (81.0-99.0); Mean Platelet Volume 10.8 fL (9.5-13.5); Platelet Count 279 10^3/uL (150-450); Red Blood Count 3.75 10^6/uL (4.20-5.40); Red Cell Distribution Width 13.1 % (11.0-15.0); White Blood Count 5.2 10^3/uL (4.0-11.0)
[2023-09-04 11:31] LABS: Albumin Level 3.5 g/dL (3.4-5.0); Anion Gap 11.9; BUN Creatinine Ratio 16.4; Calcium 9.6 mg/dL (8.5-10.1); Carbon Dioxide 27.8 mmol/L (21.0-32.0); Chloride 103 mmol/L (98-107); Estimated GFR (African America 50 (>=60); Estimated GFR (Non-African Ame 41 (>=60); Glucose 108 mg/dL (74-106); Magnesium 1.8 mg/dL (1.8-2.4); Phosphorus 3.4 mg/dL (2.6-4.7); Potassium 3.7 mmol/L (3.5-5.1); Sodium 139 mmol/L (136-145); Uric Acid 5.5 mg/dL (2.6-6.0)
[2023-09-04 13:28] LABS: Bilirubin Urine NEGATIVE (NEGATIVE); Blood Urine NEGATIVE (NEGATIVE); Clarity Urine CLEAR (CLEAR); Color Urine YELLOW (YELLOW); Glucose Urine UA NEGATIVE (NEGATIVE); Ketones Urine NEGATIVE (NEGATIVE); Leukocyte Esterase Urine NEGATIVE (NEGATIVE); Nitrite Urine NEGATIVE (NEGATIVE); Protein Urine NEGATIVE (NEG/TRACE); Specific Gravity Urine 1.015 (1.005-1.025); Urobilinogen Urine 0.2 EU/dL (0.2-1.0)
[2023-09-04 13:39] LABS: Creatinine Urine Random 93.59 mg/dL (20.00-300.00); Protein Creatinine Ratio Urine 0.11; Total Protein Urine Random 10.5 mg/dL (<=11.9)
[2023-09-04 14:06] LABS: Bacteria Urine NONE SEEN #/HPF (NONE SEEN); Cast Seen? NONE SEEN #/LPF (NONE SEEN); Crystals Seen? None Seen #/HPF (None Seen); Mucus Urine NONE SEEN (NONE SEEN); RBC Urine 0-2 #/HPF (0-2); Squamous Epithelial Cell Urine RARE #/LPF (NONE/RARE); WBC Urine 0-2 #/HPF (NONE SEEN)
[2023-09-05 12:12] LABS: PTH, Intact 20 pg/mL (15-65)
== END 2023-09-04 09:19 | disposition home or self-care (01) ==
LOC: LAB 09:18
PROVIDERS: PCP Family Medicine; Visit Provider Internal Medicine
DX: I12.9 Hypertensive chronic kidney disease with stage 1 through stage 4 chronic kidney disease, or unspecified chronic kidney disease (principal); N18.30 Chronic kidney disease, stage 3 unspecified; E11.22 Type 2 diabetes mellitus with diabetic chronic kidney disease; N25.81 Secondary hyperparathyroidism of renal origin; E78.5 Hyperlipidemia, unspecified
CPT/HCPCS: 36415; 80069; 81001; 82306; 82570; 83735; 83970; 84156; 84550; 85027

== ENCOUNTER 2023-09-27 07:40 | Outpatient (RCR) | payer OTHER, SELFPAY ==
--- NOTE | 2023-09-27 13:54 | PC.NURSE ---
1330: Pt. brought to [facility] via w/c per volunteer. Assited pt. to bed. Explained procedure to pt. Denies questions. Using sterile technique, pt. straight cath'd for q.s. amount clear yellow urine. Specimen taken to lab. [facility] care provided. Assisted with re-dressing. 1345: Pt. d/c'd out to car via w/c and d/c'd to home.
[2023-09-27 14:23] LABS: Bilirubin Urine NEGATIVE (NEGATIVE); Blood Urine TRACE-I (NEGATIVE); Color Urine LT. YELLOW (YELLOW); Glucose Urine UA NEGATIVE (NEGATIVE); Ketones Urine NEGATIVE (NEGATIVE); Leukocyte Esterase Urine MODERATE (NEGATIVE); Nitrite Urine NEGATIVE (NEGATIVE); Protein Urine NEGATIVE (NEG/TRACE); Urobilinogen Urine 0.2 EU/dL (0.2-1.0)
[2023-09-27 14:27] LABS: Clarity Urine TURBID (CLEAR); Urine Microscopic Indicated YES
[2023-09-27 14:45] LABS: Bacteria Urine MODERATE #/HPF (NONE SEEN); Cast Seen? NONE SEEN #/LPF (NONE SEEN); Crystals Seen? None Seen #/HPF (None Seen); Mucus Urine NONE SEEN (NONE SEEN); RBC Urine 0-2 #/HPF (0-2); Squamous Epithelial Cell Urine RARE #/LPF (NONE/RARE); Transitional Epi Cells Urine RARE #/LPF (NONE SEEN); Urine Culture Indicated YES
== END 2023-10-07 23:59 | disposition home or self-care (01) ==
LOC: INF 07:40
PROVIDERS: PCP Family Medicine; Visit Provider Orthopaedic Surgery
DX: E11.65 Type 2 diabetes mellitus with hyperglycemia (principal); R82.998 Other abnormal findings in urine
CPT/HCPCS: 51701; 81001; 82043; 87086; 87150; 87186

== ENCOUNTER 2023-09-27 13:21 | Outpatient (OUT) | payer OTHER, SELFPAY ==
--- OUTSIDE RECORDS SUMMARY | 2023-09-27 13:41 | XMS_ITS | CCD ---
Author Organization [facility] Care Team Providers Care Carpenter/Labor Name Role Phone Rice, Bakari W Unavailable Unavailable Rice, Bakari W Unavailable Unavailable Rice, Bakari W Unavailable Unavailable NADERER, MARIBEL~[phone] UNKNOWN Unavailable Unavailable NADERER, MARIBEL AVALOS Primary Care Unavailabl e W[place], TIANA MURPHY Referring Unavailabl e Ada, Ghislaine Unavailable NADERER, DR MARIBEL Mueller Admitting Unavailable NADERER, DR MARIBEL Mueller Attending Unavailable ZIEBER, DR PEGGY Lisa Consulting Unavailable NADERER, DR [...] GHISLAINE Attending Unavailable ADA, GHISLAINE Admitting Unavailable AAD, GHISLAINE Consulting Unavailable NADERER, DR MARIBEL Mueller Primary Care Unavailable NADERER, DR MARIBEL Mueller Consulting Unavailable NADERER, DR MARIBEL Mueller Admitting Unavailable NADERER, DR MARIBEL Mueller Attending Unavailable NADERER, DR MARIBEL Mueller Primary Care Unavailable NADERER, DR MARIBEL Mueller Admitting Unavailable NADERER, DR MARIBEL Mueller Attending Unavailable WEST, DR CONNIE José Consulting Unavailable NADERER, DR MARIBEL Mueller Consulting Unavailable NADERER, DR MARIBEL Mueller Primary Care Unavailable CANAAN, DR CONNIE José Consulting Unavailable NADERER, DR MARIBEL Mueller Admitting Unavailable NADERER, DR MARIBEL Mueller Attending Unavailable NADERER, DR MARIBEL Mueller Consulting Unavailable NADERER, DR MARIBEL Mueller Primary Care Unavailable NADERER, DR MARIBEL Mueller Consulting Unavailable FAWWAD, H Admitting Unavailable FAWWAD, H Attending Unavailable FAWJAYDEN, H Consulting Unavailable ISAMAR WATERS Consulting Unavailable NADERER, DR MARIBEL Mueller Consulting Unavailable NADERER, DR MARIBEL Mueller Admitting Unavailable NADERER, DR MARIBEL Mueller Primary Care Unavailable NADERER, DR MARIBEL Mueller Attending Unavailable NADERER, DR MARIBEL Mueller Primary Care Unavailable GRILLIS ., DR KELLY Calderon Consulting Unavaila ble GRILLIS ., DR KELLY Calderon Attending Unavaila ble GRILLIS ., DR KELLY Calderon Admitting Unavaila ble URI II, CHANO Consulting Unavailable ANAIS MAGANA Unavailable BROCK FISHER JR Referring Unavailabl e NADERER, MARIBEL Primary Care Unavailable BROCK FISHER JR Referring Unavailabl e NADERER, MARIBEL Primary Care Unavailable BROCK FISHER JR Attending Unavailabl e STEPBROCK PEREZ JR Referring Unavailabl e NADERER, MARIBEL Primary Care Unavailable NATALIA ROME, BROCK Crandall Attending Unavailabl e STEPBROCK PEREZ JR Referring Unavailabl e NADERER, MARIBEL Primary Care Unavailable NATALIA ROME, BROCK Crandall Attending Unavailabl e STEPANA ROME, BROCK Crandall Referring Unavailabl e NADERER, MARIBEL Primary Care Unavailable NADERER, MARIBEL Attending Unavailable ANAIS MELTON Attending Unavailable SAGE AMOS Attending Unavailable JR. NATALIA, BROCK Crandall Attending Unavaila ble JR. NATALIA, BROCK Crandall Referring Unavaila ble SAGE AMOS Attending Unavailable ARIANNA GUY Attending Unavailable SAGE AMOS Referring Unavailable RAMBASESHARONA Walter Attending Unavailable SAGE AMOS Referring Unavailable ANTONIO, MARIBEL Attending Unavailable Allergies Allergy Classification Reported Allergen(s) Allergy Type Date of Onset Reaction(s) Facility (1 source) No Known Medication Allergies; Translations: [No Known Medication Allergies] Propensity to adverse reactions (disorder) [facility] Repository Medications Current Medications Medication Drug [...] every twenty-four hours Vitamin D3 50 MCG (2000 UT) 1 capsule Orally Once a day Active docusate sodium 50 mg / sennosides, correction 8.6 mg oral tablet (2 sources) take [...] day(s) Feb, Active [facility] Ferrous Sulfate 325 (65 [...] Start: 02-10-2021 take 1 tablet by emilee th every twenty-four hours Magnesium Oxide 400 MG [...] Resolved: 2 Chronic Diabetes mellitus without complication (2 sources) Type 2 diabetes mellitus without complications; Translations: [TYPE 2 DM WITHOUT COMPLICATIONS] Onset: 3 Chronic Disorders of lipid metabolism (5 sources) Hyperlipidemia, unspecified; Translations: [Dyslipidemia] Onset: 3 Chronic Essential hypertension (2 sources) Essential (primary) hypertension; Translations: [ESSENTIAL PRIMARY HYPERTENSION] Onset: 3 Chronic Genitourinary symptoms and ill-defined conditions (1 source) Frequency of micturition; Translations: [Frequency of micturition] Onset: 4 Episodic Hypertension with complications and secondary hypertension (20 sources) Hypertensive renal disease; Translations: [Hypertensive chronic kidney disease with stage 1 through stage 4 chronic kidney disease, or unspecified chronic kidney disease] Onset: 1 Resolved: 2 Chronic Osteoarthritis (2 sources) Unilateral primary osteoarthritis, left hip; Translations: [UNI PRIM OSTEOARTHRITIS LT HIP] Onset: 2 Chronic Other aftercare (1 source) Other rodent exterminator (current) drug therapy; Translations: [OTH PRISON CURRENT DRUG THERAPY] Onset: 3 Episodic Other aftercare (1 source) medical terminologist (current) use of aspirin; Translations: [A P SUPERVISOR CURRENT USE OF ASPIRIN] Onset: 3 Episodic Other aftercare (1 source) medical terminologist (current) use of oral hypoglycemic drugs; Translations: [PRISON USE ORAL HYPOGLYCEMIC DX] Onset: 3 Episodic [...] malignant neoplasm of breast] Onset: 2 Episodic Screening and history of mental health and substance abuse codes (1 source) Personal history of nicotine dependence; Translations: [Personal history of nicotine dependence] Onset: 4 Episodic Unclassified (1 source) CHRN KIDNEY DISEASE [...] Test Name Value Interpretation Reference Range Facility BASIC METABOLIC PANLon 09-18 Anion gap [Moles/Vol] 7 mmol/L Normal 5-15 [facility] Comment on above: Performed By: #### C BCA, BMP, HA1C #### [facility] ([id number]) [address] [place] [address] Calcium [Mass/Vol] 9.7 mg/dL Normal 8.5-10.5 [facility] Comment on above: Performed By: #### SELAM Crandall BCA, HA1C #### [facility] ([id number]) [address], [address] [place] [address] Chloride [Moles/Vol] 99 mmol/L Normal 98-109 [facility] Comment on above: Performed By: #### C SELAM SALDANA, HA1C #### [facility] ([id number]) [address], [facility] [address] [place] [address] CO2 [Moles/Vol] 30 mmol/L Normal 22-32 [facility] Comment on above: Performed By: #### SELAM Crandall BCA, HA1C #### [facility] ([id number]) [address], [address] [place] [address] Creatinine [Mass/Vol] 1.09 mg/dL High 0.40-1.00 [facility] Comment on above: Result Comment: METH OD TRACEABLE TO IDMS STANDARD Performed By: #### C SELAM SALDANA, HA1C #### [facility] ([id number]) [address], [facility] [address] [place] [address] GFR/1.73 sq M.predicted among non-blacks MDRD (S/P/Bld) [Vol rate/Area] 55 mL/min/{1.73_m2} Low >59 [facility] Comment on above: Result Comment: Reported eGFR is based on the CKD-EPI 1 equation that does not use a race coefficient. Performed By: #### C SELAM SALDANA, HA1C #### [facility] ([id number]) [address] [facility] [address] [place] [address] Glucose [Mass/Vol] 109 mg/dL High 65-99 [facility] Comment on above: Performed By: #### SELAM Crandall BCA, HA1C #### [facility] ([id number]) [address], [address] [place] [address] Potassium [Moles/Vol] 4.1 mmol/L Normal 3.5-5.0 [facility] Comment on above: Performed By: #### SELAM Crandall BCA, HA1C #### [facility] ([id number]) [address], [address] [place] [address] Sodium [Moles/Vol] 136 mmol/L Normal 134-146 [facility] Comment on above: Performed By: #### C SELAM SALDANA, HA1C #### [facility] ([id number]) [address], [facility] [address] [place] [address] Urea nitrogen [Mass/Vol] 26 mg/dL Normal 5-27 [facility] Comment on above: Performed By: #### SELAM Crandall BCA, HA1C #### [facility] ([id number]) [address], [address] [place] [address] CBC AND AUTO DIFFon 09-19-19 24 ABSOLUTE BASOPHIL 0.1 X10E9/L Normal 0.0-0.2 [facility] Comment on above: Performed By: #### SELAM Crandall BCA, HA1C #### [facility] ([id number]) [address], [address] [place] [address] ABSOLUTE NEUTROPHIL 3.1 X10E9/L Normal 1.5-6.6 [facility] Comment on above: Performed By: #### C SELAM SALDANA, HA1C #### [facility] ([id number]) [address] [address] [place] [address] Basophils/100 WBC (Bld) 1.1 % Normal [facility] Comment on above: Performed By: #### SELAM Crandall BCA, HA1C #### [facility] ([id number]) [address] [address] [place] [address] Eosinophils (Bld) [#/Vol] 0.2 10*3/uL Normal 0.0-0.4 [facility] Comment on above: Performed By: #### SELAM Crandall BCA, HA1C #### [facility] ([id number]) [address], [facility] [address] [place] [address] Eosinophils/100 WBC (Bld) 3.6 % Normal [facility] Comment on above: Performed By: #### SELAM Crandall BCA, HA1C #### [facility] ([id number]) [address] [address] [place] [address] Erythrocyte distribution width (RBC) [Ratio] 13.3 % Normal 11.5-15.0 [facility] Comment on above: Performed By: #### SELAM Crandall BCA, HA1C #### [facility] ([id number]) [address] [address] [place] [address] Hematocrit (Bld) [Volume fraction] 36.8 % Normal 35-47 [facility] Comment on above: Performed By: #### SELAM Crandall BCA, HA1C #### [facility] ([id number]) [address] [address] [place] [address] Hemoglobin (Bld) [Mass/Vol] 12.0 g/dL Normal 11.7-15.5 [facility] Comment on above: Performed By: #### SELAM Crandall BCA, HA1C #### [facility] ([id number]) [address], [facility] [address] [place] [address] Lymphocytes (Bld) [#/Vol] 1.5 10*3/uL Normal 1.0-3.5 [facility] Comment on above: Performed By: #### SELAM Crandall BCA, HA1C #### [facility] ([id number]) [address] [address] [place] [address] Lymphocytes/100 WBC (Bld) 26.2 % Normal [facility] Comment on above: Performed By: #### SELAM Crandall BCA, HA1C #### [facility] ([id number]) [address], [address] [place] [address] MCH (RBC) [Entitic mass] 30.0 pg Normal 27-34 [facility] Comment on above: Performed By: #### SELAM Crandall BCA, HA1C #### [facility] ([id number]) [address], [address] [place] [address] MCHC (RBC) [Mass/Vol] 32.6 g/dL Normal 32-36 [facility] Comment on above: Performed By: #### SELAM Crandall BCA, HA1C #### [facility] ([id number]) [address], [address] [place] [address] MCV (RBC) [Entitic vol] 92 fL Normal 80-100 [facility] Comment on above: Performed By: #### SELAM Crandall BCA, HA1C #### [facility] ([id number]) [address], [address] [place] [address] Monocytes (Bld) [#/Vol] 0.7 10*3/uL Normal 0-0.9 [facility] Comment on above: Performed By: #### SELAM Crandall BCA, HA1C #### [facility] ([id number]) [address], [address] [place] [address] Monocytes/100 WBC (Bld) 13.1 % Normal [facility] Comment on above: Performed By: #### SELAM Crandall BCA, HA1C #### [facility] ([id number]) [address], [address] [place] [address] Neutrophils/100 WBC (Bld) 56.0 % Normal [facility] Comment on above: Performed By: #### SELAM Crandall BCA, HA1C #### [facility] ([id number]) [address], [address] [place] [address] Platelet mean volume (Bld) [Entitic vol] 9.6 fL Normal 7-12 [facility] Comment on above: Performed By: #### SELAM Crandall BCA, HA1C #### [facility] ([id number]) [address], [facility] [address] [place] [address] Platelets (Bld) [#/Vol] 274 10*3/uL Normal 150-450 [facility] Comment on above: Performed By: #### SELAM Crandall BCA, HA1C #### [facility] ([id number]) [address], [facility] [address] [place] [address] RBC COUNT 4.00 X10E12/L Normal 3.80-5.20 [facility] Comment on above: Performed By: #### SELAM Crandall BCA, HA1C #### [facility] ([id number]) [address], [facility] [address] [place] [address] WBC (Bld) [#/Vol] 5.6 10*3/uL Normal 4.0-11.0 [facility] Comment on above: Performed By: #### SELAM Crandall BCA, HA1C #### [facility] ([id number]) [address], [address] [place] [address] HGB A1C (GLYCO-HGB)on 2023 Glucose [Mass/Vol] 131 mg/dL Normal [facility] Comment on above: Performed By: #### SELAM Crandall BCA, HA1C #### [facility] ([id number]) [address], [address] [place] [address] HbA1c (Bld) [Mass fraction] 6.2 % High 4.4-5.6 [facility] Comment on above: Result Comment: NOTE ADA Guidelines Result HgbA1c Normal : less than 5.7 % Prediabetes : 5.7 % to 6.4 % Diabetes : > 6.4 % Use with caution in patients with abnormal hemoglobin variants as the half-life of red blood cells and in vivo glycation rates are affected. Performed By: #### C BCA, BMP, HA1C #### [facility] ([id number]) [address], [address] [place] [address] URINALYSISon 09-19-2023 Bilirubin Ql (U) Negative Normal NEG [facility] Comment on above: Performed By: #### U A #### [facility] ([id number]) [address], [address] [place] [address] BLOOD/HGB Negative Normal NEG [facility] Comment on above: Performed By: #### U A #### [facility] ([id number]) [address], [address] [place] [address] Color (U) YELLOW Normal YELLOW [facility] Comment on above: Performed By: #### U A #### [facility] ([id number]) [address], [address] [place] [address] Glucose Ql (U) Negative Normal NEG [facility] Comment on above: Performed By: #### U A #### [facility] ([id number]) [address], [address] [place] [address] Hyaline casts LM Ql (Urine sed) 1 /lpf Normal 0-2 [facility] Comment on above: Performed By: #### U A #### [facility] ([id number]) [address], [address] [place] [address] Ketones Ql (U) Negative Normal NEG [facility] Comment on above: Performed By: #### U A #### [facility] ([id number]) [address], [address] [place] [address] Leukocyte esterase Test strip Ql (U) Large Abnormal NEG [facility] Comment on above: Performed By: #### U A #### [facility] ([id number]) [address], [address] [place] [address] MUCOUS PRESENT Abnormal NONE [facility] Comment on above: Performed By: #### U A #### [facility] ([id number]) [address], [address] [place] [address] Nitrite Ql (U) Negative Normal NEG [facility] Comment on above: Performed By: #### U A #### [facility] ([id number]) [address], [address] [place] [address] pH (U) 8.0 [pH] Normal 5.0-8.5 [facility] Comment on above: Performed By: #### U A #### [facility] ([id number]) [address], [address] [place] [address] Protein Ql (U) Trace Abnormal NEG [facility] Comment on above: Performed By: #### U A #### [facility] ([id number]) [address], [address] [place] [address] R.B.CELLS 4 /hpf Normal 0-5 [facility] Comment on above: Performed By: #### U A #### [facility] ([id number]) [address], [address] [place] [address] Specific gravity (U) [Rel density] 1.015 Normal 1.003-1.035 [facility] Comment on above: Performed By: #### U A #### [facility] ([id number]) [address], [address] [place] [address] SQUAMOUS EPITHELIUM 2 /hpf Normal 0-5 [facility] Comment on above: Performed By: #### U A #### [facility] ([id number]) [address], [address] [place] [address] TRANSITIONAL EPITH <1 High 0 [facility] Comment on above: Performed By: #### U A #### [facility] ([id number]) [address], [address] [place] [address] TURBIDITY HAZY Abnormal CLEAR [facility] Comment on above: Performed By: #### U A #### [facility] ([id number]) [address], [facility] [address] [place] [address] Urobilinogen (U) [Mass/Vol] mg/dL Normal <1.1 [facility] Comment on above: Performed By: #### U A #### [facility] ([id number]) [address], [facility] [address] [place] [address] W.B.CELLS 60 /hpf High 0-5 [facility] Comment on above: Performed By: #### U A #### [facility] ([id number]) [address], [facility] [address] [place] [address] URINE CULTUREon 09-19-2023 Bacteria identified Cx Nom (U) CULTURE RESULTS MULTIPLE SPECIES PRESENT. PROBABLE COLLECTION CONTAMINATION. SUGGEST REPEAT SPECIMEN. Normal [facility] Comment on above: Performed By: #### 6 30-4 #### [facility] ([id number]) [address], [address] [place] [address] XR CHEST 2 VWSon 09-19-2023 XR CHEST 2 VWS XR CHEST 2 VWS XR CHEST 2 VWS INDICATION: Preop examination; Hypertension, unspecified type; Type 2 diabetes mellitus without complication, without long-term current use of insulin ([facility]); Urinary frequency; Former smoker; Osteoarthritis of left hip, unspecified osteoarthritis type. FINDINGS: Cardiac silhouette is normal in size. Trachea midline. No focal pulmonary consolidation. No pleural effusion. No pneumothorax. IMPRESSION: 1. Unremarkable chest radiographs. Finalized by Sincere Charles MD on 09/19/2023 11:47 PM Normal [facility] PTH INTACTon 09-01-2022 PTH, Intact 26 pg/mL Normal 15-65 [facility] Comment on above: Performed By: #### P THINT #### [facility] [address] [place] [address] Dr. Nunu Borges CBC AUTO DIFFon 08-31-2022 BASO # 0.1 103/ul Normal 0.0-0.1 [facility] Comment on above: Performed By: #### U TIFFANIE, MG, RENAL #### [facility] [address] [place] [address] Dr. Nunu Borges Basophils/100 WBC (Bld) 1.2 % Normal 0.2-2.0 [facility] Comment on above: Performed By: #### U TIFFANIE, MG, RENAL #### [facility] [address] [place] [address] Dr. Nunu Borges EO # 0.1 103/ul Normal 0.0-0.7 [facility] Comment on above: Performed By: #### U TIFFANIE, MG, RENAL #### [facility] [address] [place] [address] Dr. Nunu Borges Eosinophils/100 WBC (Bld) 2.2 % Normal 0.9-7.0 [facility] Comment on above: Performed By: #### U TIFFANIE, MG, RENAL #### [facility] [address] [place] [address] Dr. Nunu Borges Erythrocyte distribution width (RBC) [Ratio] 12.7 % Normal 11.0-15.0 [facility] Comment on above: Performed By: #### U TIFFANIE, MG, RENAL #### [facility] [address] [place] [address] Dr. Nunu Borges Hematocrit (Bld) [Volume fraction] 38.0 % Normal 36.0-48.0 [facility] Comment on above: Performed By: #### U TIFFANIE, MG, RENAL #### [facility] [address] [place] [address] Dr. Nunu Borges Hemoglobin (Bld) [Mass/Vol] 12.5 g/dL Normal 12.0-16.0 [facility] Comment on above: Performed By: #### U TIFFANIE, MG, RENAL #### [facility] [address] [address] [address] Nunu Borges IG # 0.02 10e3/ul Normal 0.00-0.03 [facility] Comment on above: Performed By: #### U TIFFANIE, MG, RENAL #### [facility] [address] [address] [address] Nunu Borges IG % 0.3 % Normal 0.0-0.5 [facility] Comment on above: Performed By: #### U TIFFANIE, MG, RENAL #### [facility] [address] [address] [address] Nunu Borges LYMPH # 1.8 103/ul Normal 1.2-3.8 [facility] Comment on above: Performed By: #### U TIFFANIE, MG, RENAL #### [facility] [address] [address] [address] Nunu Borges Lymphocytes/100 WBC (Bld) 30.7 % Normal 20.5-60.0 [facility] Comment on above: Performed By: #### U TIFFANIE, MG, RENAL #### [facility] [address] [address] [address] Nunu Borges MANUAL DIFF REQ NO Normal [facility] Comment on above: Performed By: #### U TIFFANIE, MG, RENAL #### [facility] [address] [address] [address] Nunu Borges MCH (RBC) [Entitic mass] 29.8 pg Normal 26.7-34.0 [facility] Comment on above: Performed By: #### U TIFFANIE, MG, RENAL #### [facility] [address] [address] [address] Nunu Borges MCHC (RBC) [Mass/Vol] 32.9 g/dL Normal 29.9-35.2 [facility] Comment on above: Performed By: #### U TIFFANIE, MG, RENAL #### [facility] [address] [address] [address] Nunu Borges MCV (RBC) [Entitic vol] 90.5 fL Normal 81.0-99.0 [facility] Comment on above: Performed By: #### U TIFFANIE, MG, RENAL #### [facility] [address] [address] [address] Nunu Borges MONO # 0.7 103/ul Normal 0.3-0.8 [facility] Comment on above: Performed By: #### U TIFFANIE, MG, RENAL #### [facility] [address] [address] [address] Nunu Borges Monocytes/100 WBC (Bld) 12.4 % Critically high 1.7-12.0 [facility] Comment on above: Performed By: #### U TIFFANIE, MG, RENAL #### [facility] [address] [place] [address] Dr. Nunu Boregs NEUT # 3.1 103/ul Normal 1.4-6.5 [facility] Comment on above: Performed By: #### U TIFFANIE, MG, RENAL #### [facility] [address] [place] [address] Dr. Nunu Borges Neutrophils/100 WBC (Bld) 53.2 % Normal 43.0-75.0 [facility] Comment on above: Performed By: #### U TIFFANIE, MG, RENAL #### [facility] [address] [address] [address] Nunu Borges Platelet mean volume (Bld) [Entitic vol] 11.3 fL Normal 9.5-13.5 [facility] Comment on above: Performed By: #### U TIFFANIE, MG, RENAL #### [facility] [address] [place] [address] Dr. Nunu Borges PLT 284 103/ul Normal 150-450 The [facility] Comment on above: Performed By: #### U TIFFANIE, MG, RENAL #### [facility] [address] [address] [address] Nunu Borges RBC 4.20 106/ul Normal 4.20-5.40 [facility] Comment on above: Performed By: #### U TIFFANIE, MG, RENAL #### [facility] [address] [place] [address] Dr. Nunu Borges WBC 5.9 103/ul Normal 4.0-11.0 The [facility] Comment on above: Performed By: #### U TIFFANIE, MG, RENAL #### [facility] [address] [address] [address] Nunu Borges FERRITINon 08-31-2022 Ferritin [Mass/Vol] 66.0 ng/mL Normal 8.0-252.0 [facility] Comment on above: Performed By: #### U TIFFANIE, MG, RENAL #### [facility] [address] [address] [address] Nunu Borges GLYCOHEMOGLOBIN A1Con 2022 ADA RECOMMENDATION SEE BELOW Normal [facility] Comment on above: Result Comment: ADA RECOMMENDED LIMIT 4.0 - 6.0 ADA THERAPEUTIC TARGET < 7.0 ACTION SUGGESTED > 7.0 Performed By: #### U TIFFANIE, MG, RENAL #### [facility] [address] [address] [address] Nunu Borges Glucose [Mass/Vol] 134 mg/dL Normal [facility] Comment on above: Performed By: #### U TIFFANIE, MG, RENAL #### [facility] [address] [address] [address] Nunu Borges HbA1c (Bld) [Mass fraction] 6.3 % Critically high 4.5-6.2 [facility] Comment on above: Performed By: #### U TIFFANIE, MG, RENAL #### [facility] [address] [address] [address] Nunu Borges IRON AND TIBCon 08-31-2022 % SATURATION 25.9 % Normal [facility] Comment on above: Performed By: #### U TIFFANIE, MG, RENAL #### [facility] [address] [address] [address] Nunu Borges Iron [Mass/Vol] 90.0 ug/dL Normal 50.0-170.0 [facility] Comment on above: Performed By: #### U TIFFANIE, MG, RENAL #### [facility] [address] [address] [address] Nunu Borges TIBC DIRECT 348.0 ug/dL Normal 250.0-450.0 [facility] Comment on above: Performed By: #### U TIFFANIE, MG, RENAL #### [facility] [address] [address] [address] Nunu Borges LIPID PROFILEon 08-31-2022 CHOL-HDL RATIO NORM SEE BELOW Normal [facility] Comment on above: Result Comment: 3.3 - 4.4 LOW RISK 4.4 - 7.1 AVERAGE RISK 7.1 - 11.0 MODERATE RISK >11.0 HIGH RISK Performed By: #### U TIFFANIE, MG, RENAL #### [facility] [address] [address] [address] Nunu Borges Cholesterol [Mass/Vol] 152 mg/dL Normal <=200 [facility] Comment on above: Performed By: #### U TIFFANIE, MG, RENAL #### [facility] [address] [address] [address] Nunu Borges Cholesterol in HDL [Mass/Vol] 77 mg/dL Critically high 40-60 [facility] Comment on above: Performed By: #### U TIFFANIE, MG, RENAL #### [facility] [address] [address] [address] Nunu Borges Cholesterol in LDL [Mass/Vol] 63.2 mg/dL Normal [facility] Comment on above: Performed By: #### U TIFFANIE, MG, RENAL #### [facility] [address] [address] [address] Nunu Borges Cholesterol.total/Ch olesterol in HDL [Mass ratio] 2.0 {ratio} Normal [facility] Comment on above: Performed By: #### U TIFFANIE, MG, RENAL #### [facility] [address] [address] [address] Nunu Borges HDL NORMAL > or = 60 mg/dl - LOW CARDIOVASCULAR RISK <40 mg/dl - HIGH CARDIOVASCULAR RISK Normal [facility] Comment on above: Performed By: #### U TIFFANIE, MG, RENAL #### [facility] [address] [address] [address] Nunu Borges LDL CALC NORMAL SEE BELOW Normal [facility] Comment on above: Result Comment: <100 mg/dl OPTIMAL 100 - 129 mg/dl NEAR OR ABOVE OPTIMAL 130 - 159 mg/dl BORDERLINE HIGH 160 - 189 mg/dl HIGH >190 mg/dl VERY HIGH Performed By: #### U TIFFANIE, MG, RENAL #### [facility] [address] [place] [address] Dr. Nunu Borges Triglyceride [Mass/Vol] 59 mg/dL Normal <=150 [facility] Comment on above: Performed By: #### U TIFFANIE, MG, RENAL #### [facility] [address] [address] [address] Nunu Borges VLDL CALC 11.8 mg/dL Normal [facility] Comment on above: Performed By: #### U TIFFANIE, MG, RENAL #### [facility] [address] [place] [address] Dr. Nunu Borges LIVER PROFILEon 08-31-2022 Albumin/Globulin [Mass ratio] 1.1 {ratio} Normal [facility] Comment on above: Performed By: #### U TIFFANIE, MG, RENAL #### [facility] [address] [place] [address] Dr. Nunu Borges ALP [Catalytic activity/Vol] 129 U/L Critically high 46-116 The [facility] Comment on above: Performed By: #### U TIFFANIE, MG, RENAL #### [facility] [address] [place] [address] Dr. Nunu Borges ALT [Catalytic activity/Vol] 32 U/L Normal 14-59 [facility] Comment on above: Performed By: #### U TIFFANIE, MG, RENAL #### [facility] [address] [place] [address] Dr. Nunu Borges AST [Catalytic activity/Vol] 20 U/L Normal 15-37 The [facility] Comment on above: Performed By: #### U TIFFANIE, MG, RENAL #### [facility] [address] [place] [address] Dr. Nunu Borges BILI, CONJUGATED 0.2 mg/dL Normal 0.0-0.2 [facility] Comment on above: Performed By: #### U TIFFANIE, MG, RENAL #### [facility] [address] [place] [address] Dr. Nunu Borges Bilirubin [Mass/Vol] 0.8 mg/dL Normal 0.2-1.0 The [facility] Comment on above: Performed By: #### U TIFFANIE, MG, RENAL #### [facility] [address] [address] [address] Nunu Borges Globulin (S) [Mass/Vol] 3.6 g/dL Normal [facility] Comment on above: Performed By: #### U TIFFANIE, MG, RENAL #### [facility] [address] [address] [address] Nunu Borges Protein [Mass/Vol] 7.5 g/dL Normal 6.4-8.2 [facility] Comment on above: Performed By: #### U TIFFANIE, MG, RENAL #### [facility] [address] [place] [address] Dr. Nunu Borges MAGNESIUMon 08-31-2022 Magnesium [Mass/Vol] 1.8 mg/dL Normal 1.8-2.4 [facility] Comment on above: Performed By: #### U TIFFANIE, MG, RENAL #### [facility] [address] [place] [address] Dr. Nunu Borges MICROALBUMIN, RAND URon 05- mALB <1.3 Normal <=30.0 [facility] Comment on above: Performed By: #### U TIFFANIE, MG, RENAL #### [facility] [address] [place] [address] Dr. Nunu Borges PROF CHEM 8 (BAS METB)on Anion gap [Moles/Vol] 14.3 mmol/L Normal [facility] Comment on above: Performed By: #### U TIFFANIE, MG, RENAL #### [facility] [address] [address] [address] Nunu Borges CO2 [Moles/Vol] 27.7 mmol/L Normal 21.0-32.0 [facility] Comment on above: Performed By: #### U TIFFANIE, MG, RENAL #### [facility] [address] [address] [address] Nunu Borges Glucose [Mass/Vol] 119 mg/dL Critically high 74-106 [facility] Comment on above: Performed By: #### U TIFFANIE, MG, RENAL #### [facility] [address] [address] [address] Nunu Borges Urea nitrogen/Creatinine [Mass ratio] 22.7 mg/mg Normal [facility] Comment on above: Performed By: #### U TIFFANIE, MG, RENAL #### [facility] [address] [address] [address] Nunu Borges RENAL FUNCTION PANELon 08-31 Albumin [Mass/Vol] 3.9 g/dL Normal 3.4-5.0 [facility] Comment on above: Performed By: #### U TIFFANIE, MG, RENAL #### [facility] [address] [place] [address] Dr. Nunu Borges Calcium [Mass/Vol] 9.7 mg/dL Normal 8.5-10.1 [facility] Comment on above: Performed By: #### U TIFFANIE, MG, RENAL #### [facility] [address] [place] [address] Dr. Nunu Borges Chloride [Moles/Vol] 99 mmol/L Normal 98-107 [facility] Comment on above: Performed By: #### U TIFFANIE, MG, RENAL #### [facility] [address] [place] [address] Dr. Nunu Borges CO2 [Moles/Vol] 28.0 mmol/L Normal 21.0-32.0 [facility] Comment on above: Performed By: #### U TIFFANIE, MG, RENAL #### [facility] [address] [place] [address] Dr. Nunu Borges Creatinine [Mass/Vol] 1.32 mg/dL Critically high 0.55-1.02 [facility] Comment on above: Performed By: #### U TIFFANIE, MG, RENAL #### [facility] [address] [place] [address] Dr. Nunu Borges EGFR-AF PORTUGUESE 49 mL/min/1.73m2 Critically low >=60 [facility] Comment on above: Performed By: #### U TIFFANIE, MG, RENAL #### [facility] [address] [address] [address] Nunu Borges EGFR-NON AF PORTUGUESE 40 mL/min/1.73m2 Critically low >=60 [facility] Comment on above: Performed By: #### U TIFFANIE, MG, RENAL #### [facility] [address] [address] [address] Nunu Borges Glucose [Mass/Vol] 118 mg/dL Critically high 74-106 [facility] Comment on above: Performed By: #### U TIFFANIE, MG, RENAL #### [facility] [address] [address] [address] Nunu Borges Phosphate [Mass/Vol] 3.6 mg/dL Normal 2.6-4.7 [facility] Comment on above: Performed By: #### U TIFFANIE, MG, RENAL #### [facility] [address] [address] [address] Nunu Borges Potassium [Moles/Vol] 4.0 mmol/L Normal 3.5-5.1 [facility] Comment on above: Performed By: #### U TIFFANIE, MG, RENAL #### [facility] [address] [address] [address] Nunu Borges Sodium [Moles/Vol] 137 mmol/L Normal 136-145 [facility] Comment on above: Performed By: #### U TIFFANIE, MG, RENAL #### [facility] [address] [address] [address] Nunu Borges Urea nitrogen [Mass/Vol] 30.0 mg/dL Critically high 7.0-18.0 [facility] Comment on above: Performed By: #### U TIFFANIE, MG, RENAL #### [facility] [address] [address] [address] Nunu Borges UA RANDOM W/MICROSCOPICon BACTERIA NONE SEEN Normal NONE SEEN The [facility] Comment on above: Performed By: #### U AMIC #### [facility] [address] [address] [address] Nunu Borges Bilirubin Ql (U) Negative Normal NEGATIVE The [facility] Comment on above: Performed By: #### U AMIC #### [facility] [address] [address] [address] Nunu Borges CAST NONE SEEN Normal NONE SEEN The [facility] Comment on above: Performed By: #### U AMIC #### [facility] [address] [address] [address] Nunu Borges Clarity (U) CLEAR Normal CLEAR The [facility] Comment on above: Performed By: #### U AMIC #### [facility] [address] [address] [address] Nunu Borges Color (U) LT. YELLOW Normal YELLOW The [facility] Comment on above: Performed By: #### U AMIC #### [facility] [address] [address] [address] Nunu Borges Crystals LM Nom (Urine sed) NONE SEEN Normal NONE SEEN The [facility] Comment on above: Performed By: #### U AMIC #### [facility] [address] [address] [address] Nunu Borges Epithelial cells LM Ql (Urine sed) FEW Abnormal NONE SEEN /RARE The [facility] Comment on above: Performed By: #### U AMIC #### [facility] [address] [place] [address] Dr. Nunu Borges Glucose Ql (U) Negative Normal NEGATIVE The [facility] Comment on above: Performed By: #### U AMIC #### [facility] [address] [address] [address] Nunu Borges Hemoglobin Ql (U) Negative Normal NEGATIVE The [facility] Comment on above: Performed By: #### U AMIC #### [facility] [address] [address] [address] Nunu Borges Ketones Ql (U) Negative Normal NEGATIVE The [facility] Comment on above: Performed By: #### U AMIC #### [facility] [address] [address] [address] Nunu Borges LEUKOCYTES TRACE Abnormal NEGATIVE The [facility] Comment on above: Performed By: #### U AMIC #### [facility] [address] [address] [address] Nunu Borges MUCOUS NONE SEEN Normal NONE SEEN The [facility] Comment on above: Performed By: #### U AMIC #### [facility] [address] [address] [address] Nunu Borges Nitrite Ql (U) Negative Normal NEGATIVE The [facility] Comment on above: Performed By: #### U AMIC #### [facility] [address] [address] [address] Nunu Borges pH (U) 6.0 [pH] Normal 5-9 The [facility] Comment on above: Performed By: #### U AMIC #### [facility] [address] [address] [address] Nunu Borges RBC NONE SEEN Abnormal 0-2 [facility] Comment on above: Performed By: #### U AMIC #### [facility] [address] [place] [address] Dr. Nunu Borges SPEC GRAVITY 1.015 Normal 1.005-<=1.025 [facility] Comment on above: Performed By: #### U AMIC #### [facility] [address] [place] [address] Dr. Nunu Borges UA PROTEIN Negative Normal NEGATIVE/ TRACE The [facility] Comment on above: Performed By: #### U AMIC #### [facility] [address] [place] [address] Dr. Nunu Borges Urobilinogen Qn (U) 0.2 {Myriam'U}/dL Normal 0.2 - 1. 0 The [facility] Comment on above: Performed By: #### U AMIC #### [facility] [address] [place] [address] Dr. Nunu Borges WBC 2-5 Abnormal NONE SEEN The [facility] Comment on above: Performed By: #### U AMIC #### [facility] [address] [place] [address] Dr. Nunu Borges URIC ACID SERUMon 08-31-2022 Urate [Mass/Vol] 6.3 mg/dL Critically high 2.6-6.0 [facility] Comment on above: Performed By: #### U TIFFANIE, MG, RENAL #### [facility] [address] [place] [address] Dr. Nunu Borges URINE T PROTEIN CREAT RATIOo n 08-31-2022 Protein (U) [Mass/Vol] 13.3 mg/dL Critically high <=12.0 [facility] Comment on above: Performed By: #### U TIFFANIE, MG, RENAL #### [facility] [address] [place] [address] Dr. Nunu Borges UR PROT CREAT RAT 0.11 Normal [facility] Comment on above: Performed By: #### U TIFFANIE, MG, RENAL #### [facility] [address] [place] [address] Dr. Nunu Borges URINE CREAT 121.05 mg/dL Normal 20.00-300.00 [facility] Comment on above: Performed By: #### U TIFFANIE, MG, RENAL #### [facility] [address] [place] [address] Dr. Nunu Borges VITAMIN D 25 OHon 08-31-2022 VIT D 25-OH 79.7 ng/mL Normal [facility] Comment on above: Performed By: #### U TIFFANIE, MG, RENAL #### [facility] [address] [place] [address] Dr. Nunu Borges VIT D RANGES SEE BELOW Normal [facility] Comment on above: Result Comment: <20 ng/mL Vit D deficient 20 - <30 ng/mL Vit D insufficient 30 - 100 ng/mL Vit D sufficient >100 ng/mL Potential Toxicity Performed By: #### U TIFFANIE, MG, RENAL #### [facility] [address] [place] [address] Dr. Nunu Borges POINT OF CARE GLUCOSEon 04- Glucose [Mass/Vol] 132 mg/dL Critically high 74-106 [facility] Comment on above: Performed By: #### U AMIC #### [facility] [address] [place] [address] Dr. Nunu Borges PTH INTACTon 02-15-2022 PTH, Intact 36 pg/mL Normal 15-65 [facility] Comment on above: Performed By: #### U TIFFANIE, MG, RENAL #### [facility] [address] [address] [address] Nunu Borges UA RANDOM W/MICROSCOPICon BACTERIA TRACE Abnormal NONE SEEN The [facility] Comment on above: Performed By: #### U AMIC #### [facility] [address] [address] [address] Nunu Borges Bilirubin Ql (U) Negative Normal NEGATIVE The [facility] Comment on above: Performed By: #### U AMIC #### [facility] [address] [address] [address] Nunu Borges CAST NONE SEEN Normal NONE SEEN The [facility] Comment on above: Performed By: #### U AMIC #### [facility] [address] [place] [address] Dr. Nunu Borges Clarity (U) CLEAR Normal CLEAR The [facility] Comment on above: Performed By: #### U AMIC #### [facility] [address] [address] [address] Nunu Borges Color (U) LT. YELLOW Normal YELLOW The [facility] Comment on above: Performed By: #### U AMIC #### [facility] [address] [address] [address] Nunu Borges Crystals LM Nom (Urine sed) NONE SEEN Normal NONE SEEN The [facility] Comment on above: Performed By: #### U AMIC #### [facility] [address] [address] [address] Nunu Borges Epithelial cells LM Ql (Urine sed) FEW Abnormal NONE SEEN /RARE The [facility] Comment on above: Performed By: #### U AMIC #### [facility] [address] [address] [address] Nunu Borges Glucose Ql (U) Negative Normal NEGATIVE The [facility] Comment on above: Performed By: #### U AMIC #### [facility] [address] [address] [address] Nunu Borges Hemoglobin Ql (U) Negative Normal NEGATIVE The [facility] Comment on above: Performed By: #### U AMIC #### [facility] [address] [address] [address] Nunu Borges Ketones Ql (U) Negative Normal NEGATIVE The [facility] Comment on above: Performed By: #### U AMIC #### [facility] [address] [place] [address] Dr. Nunu Borges LEUKOCYTES SMALL Abnormal NEGATIVE The [facility] Comment on above: Performed By: #### U AMIC #### [facility] [address] [address] [address] Nunu Borges MUCOUS NONE SEEN Normal NONE SEEN The [facility] Comment on above: Performed By: #### U AMIC #### [facility] [address] [address] [address] Nunu Borges Nitrite Ql (U) Negative Normal NEGATIVE The [facility] Comment on above: Performed By: #### U AMIC #### [facility] [address] [place] [address] Dr. Nunu Borges pH (U) 7.0 [pH] Normal 5-9 The [facility] Comment on above: Performed By: #### U AMIC #### [facility] [address] [place] [address] Dr. Nunu Borges RBC NONE SEEN Abnormal 0-2 The [facility] Comment on above: Performed By: #### U AMIC #### [facility] [address] [place] [address] Dr. Nunu Borges SPEC GRAVITY 1.010 Normal 1.005-<=1.025 The [facility] Comment on above: Performed By: #### U AMIC #### [facility] [address] [place] [address] Dr. Nunu Borges UA PROTEIN Negative Normal NEGATIVE/ TRACE The [facility] Comment on above: Performed By: #### U AMIC #### [facility] [address] [place] [address] Dr. Nunu Borges Urobilinogen Qn (U) 0.2 {Myriam'U}/dL Normal 0.2 - 1. 0 The [facility] Comment on above: Performed By: #### U AMIC #### [facility] [address] [place] [address] Dr. Nunu Borges WBC 5-10 Abnormal NONE SEEN The [facility] Comment on above: Performed By: #### U AMIC #### [facility] [address] [place] [address] Dr. Nunu Borges FERRITINon 02-13-2022 Ferritin [Mass/Vol] 72.0 ng/mL Normal 8.0-252.0 [facility] Comment on above: Performed By: #### U TIFFANIE, MG, RENAL #### [facility] [address] [place] [address] Dr. Nunu Borges GLYCOHEMOGLOBIN A1Con 2021 ADA RECOMMENDATION SEE BELOW Normal [facility] Comment on above: Result Comment: ADA RECOMMENDED LIMIT 4.0 - 6.0 ADA THERAPEUTIC TARGET < 7.0 ACTION SUGGESTED > 7.0 Performed By: #### A 1C #### [facility] [address] [place] [address] Dr. Nunu Borges Glucose [Mass/Vol] 143 mg/dL Normal [facility] Comment on above: Performed By: #### A 1C #### [facility] [address] [place] [address] Dr. Nunu Borges HbA1c (Bld) [Mass fraction] 6.6 % Critically high 4.5-6.2 [facility] Comment on above: Performed By: #### A 1C #### [facility] [address] [place] [address] Dr. Nunu Borges HEMOGRAM AND PLATELon 2021 Hematocrit (Bld) [Volume fraction] 36.1 % Normal 36.0-48.0 [facility] Comment on above: Performed By: #### U TIFFANIE, MG, RENAL #### [facility] [address] [place] [address] Dr. Nunu Borges Hemoglobin (Bld) [Mass/Vol] 11.5 g/dL Critically low 12.0-16.0 [facility] Comment on above: Performed By: #### U TIFFANIE, MG, RENAL #### [facility] [address] [place] [address] Dr. Nunu Borges MCH (RBC) [Entitic mass] 29.1 pg Normal 26.7-34.0 The [facility] Comment on above: Performed By: #### U TIFFANIE, MG, RENAL #### [facility] [address] [place] [address] Dr. Nunu Borges MCHC (RBC) [Mass/Vol] 31.9 g/dL Normal 29.9-35.2 The [facility] Comment on above: Performed By: #### U TIFFANIE, MG, RENAL #### [facility] [address] [place] [address] Dr. Nunu Borges MCV (RBC) [Entitic vol] 91.4 fL Normal 81.0-99.0 The [facility] Comment on above: Performed By: #### U TIFFANIE, MG, RENAL #### [facility] [address] [place] [address] Dr. Nunu Borges PLT 348 103/ul Normal 150-450 The [facility] Comment on above: Performed By: #### U TIFFANIE, MG, RENAL #### [facility] [address] [place] [address] Dr. Nunu Borges RBC 3.95 106/ul Critically low 4.20-5.40 The [facility] Comment on above: Performed By: #### U TIFFANIE, MG, RENAL #### [facility] [address] [place] [address] Dr. Nunu Borges WBC 4.4 103/ul Normal 4.0-11.0 The [facility] Comment on above: Performed By: #### U TIFFANIE, MG, RENAL #### [facility] [address] [place] [address] Dr. Nunu Borges IRON AND TIBCon 02-13-2022 % SATURATION 17.1 % Normal The [facility] Comment on above: Performed By: #### U TIFFANIE, MG, RENAL #### [facility] [address] [place] [address] Dr. Nunu Borges Iron [Mass/Vol] 56.0 ug/dL Normal 50.0-170.0 The [facility] Comment on above: Performed By: #### U TIFFANIE, MG, RENAL #### [facility] [address] [address] [address] Nunu Borges TIBC DIRECT 327.0 ug/dL Normal 250.0-450.0 The [facility] Comment on above: Performed By: #### U TIFFANIE, MG, RENAL #### [facility] [address] [address] [address] Nunu Borges MAGNESIUMon 02-13-2022 Magnesium [Mass/Vol] 1.8 mg/dL Normal 1.8-2.4 The [facility] Comment on above: Performed By: #### U TIFFANIE, MG, RENAL #### [facility] [address] [address] [address] Nunu Borges RENAL FUNCTION PANELon 02-13 Albumin [Mass/Vol] 3.7 g/dL Normal 3.4-5.0 [facility] Comment on above: Performed By: #### U TIFFANIE, MG, RENAL #### [facility] [address] [address] [address] Nunu Borges Calcium [Mass/Vol] 9.4 mg/dL Normal 8.5-10.1 [facility] Comment on above: Performed By: #### U TIFFANIE, MG, RENAL #### [facility] [address] [address] [address] Nunu Borges Chloride [Moles/Vol] 100 mmol/L Normal 98-107 The [facility] Comment on above: Performed By: #### U TIFFANIE, MG, RENAL #### [facility] [address] [address] [address] Nunu Borges CO2 [Moles/Vol] 30.0 mmol/L Normal 21.0-32.0 The [facility] Comment on above: Performed By: #### U TIFFANIE, MG, RENAL #### [facility] [address] [address] [address] Nunu Borges Creatinine [Mass/Vol] 1.31 mg/dL Critically high 0.55-1.02 [facility] Comment on above: Performed By: #### U TIFFANIE, MG, RENAL #### [facility] [address] [address] [address] Nunu Borges EGFR-AF PORTUGUESE 49 mL/min/1.73m2 Critically low >=60 [facility] Comment on above: Performed By: #### U TIFFANIE, MG, RENAL #### [facility] [address] [address] [address] Nunu Borges EGFR-NON AF PORTUGUESE 40 mL/min/1.73m2 Critically low >=60 [facility] Comment on above: Performed By: #### U TIFFANIE, MG, RENAL #### [facility] [address] [address] [address] Nunu Borges Glucose [Mass/Vol] 98 mg/dL Normal 74-106 [facility] Comment on above: Performed By: #### U TIFFANIE, MG, RENAL #### [facility] [address] [address] [address] Nunu Borges Phosphate [Mass/Vol] 3.0 mg/dL Normal 2.6-4.7 [facility] Comment on above: Performed By: #### U TIFFANIE, MG, RENAL #### [facility] [address] [address] [address] Nunu Borges Potassium [Moles/Vol] 4.4 mmol/L Normal 3.5-5.1 [facility] Comment on above: Performed By: #### U TIFFANIE, MG, RENAL #### [facility] [address] [address] [address] Nunu Borges Sodium [Moles/Vol] 133 mmol/L Critically low 136-145 [facility] Comment on above: Performed By: #### U TIFFANIE, MG, RENAL #### [facility] [address] [address] [address] Nunu Borges Urea nitrogen [Mass/Vol] 23.0 mg/dL Critically high 7.0-18.0 [facility] Comment on above: Performed By: #### U TIFFANIE, MG, RENAL #### [facility] [address] [address] [address] Nunu Borges URIC ACID SERUMon 02-13-2022 Urate [Mass/Vol] 5.9 mg/dL Normal 2.6-6.0 [facility] Comment on above: Performed By: #### U TIFFANIE, MG, RENAL #### [facility] [address] [address] [address] Nunu Borges VITAMIN D 25 OHon 02-13-2022 VIT D 25-OH 70.3 ng/mL Normal The [facility] Comment on above: Performed By: #### U TIFFANIE, MG, RENAL #### [facility] [address] [place] [address] Dr. Nunu Borges VIT D RANGES SEE BELOW Normal [facility] Comment on above: Result Comment: <20 ng/mL Vit D deficient 20 - <30 ng/mL Vit D insufficient 30 - 100 ng/mL Vit D sufficient >100 ng/mL Potential Toxicity Performed By: #### U TIFFANIE, MG, RENAL #### [facility] [address] [place] [address] Dr. Nunu Borges CBC AUTO DIFFon 01-27-2022 BASO # 0.0 103/ul Normal 0.0-0.1 [facility] Comment on above: Performed By: #### U TIFFANIE, MG, RENAL #### [facility] [address] [place] [address] Dr. Nunu Borges Basophils/100 WBC (Bld) 0.2 % Normal 0.2-2.0 [facility] Comment on above: Performed By: #### U TIFFANIE, MG, RENAL #### [facility] [address] [place] [address] Dr. Nunu Borges EO # 0.1 103/ul Normal 0.0-0.7 The [facility] Comment on above: Performed By: #### U TIFFANIE, MG, RENAL #### [facility] [address] [place] [address] Dr. Nunu Borges Eosinophils/100 WBC (Bld) 0.9 % Normal 0.9-7.0 The [facility] Comment on above: Performed By: #### U TIFFANIE, MG, RENAL #### [facility] [address] [place] [address] Dr. Nunu Borges Erythrocyte distribution width (RBC) [Ratio] 12.5 % Normal 11.0-15.0 The [facility] Comment on above: Performed By: #### U TIFFANIE, MG, RENAL #### [facility] [address] [address] [address] Nunu Borges Hematocrit (Bld) [Volume fraction] 32.5 % Critically low 36.0-48.0 [facility] Comment on above: Performed By: #### U TIFFANIE, MG, RENAL #### [facility] [address] [place] [address] Dr. Nunu Borges Hemoglobin (Bld) [Mass/Vol] 10.9 g/dL Critically low 12.0-16.0 [facility] Comment on above: Performed By: #### U TIFFANIE, MG, RENAL #### [facility] [address] [place] [address] Dr. Nunu Borges IG # 0.14 10e3/ul Critically high 0.00-0.03 [facility] Comment on above: Performed By: #### U TIFFANIE, MG, RENAL #### [facility] [address] [place] [address] Dr. Nunu Borges IG % 1.5 % Critically high 0.0-0.5 [facility] Comment on above: Performed By: #### U TIFFANIE, MG, RENAL #### [facility] [address] [place] [address] Dr. Nunu Borges LYMPH # 1.5 103/ul Normal 1.2-3.8 [facility] Comment on above: Performed By: #### U TIFFANIE, MG, RENAL #### [facility] [address] [place] [address] Dr. Nunu Borges Lymphocytes/100 WBC (Bld) 15.5 % Critically low 20.5-60.0 [facility] Comment on above: Performed By: #### U TIFFANIE, MG, RENAL #### [facility] [address] [place] [address] Dr. Nunu Borges MANUAL DIFF REQ NO Normal The [facility] Comment on above: Performed By: #### U TIFFANIE, MG, RENAL #### [facility] [address] [place] [address] Dr. Nunu Borges MCH (RBC) [Entitic mass] 29.6 pg Normal 26.7-34.0 The [facility] Comment on above: Performed By: #### U TIFFANIE, MG, RENAL #### [facility] [address] [address] [address] Nunu Borges MCHC (RBC) [Mass/Vol] 33.5 g/dL Normal 29.9-35.2 The [facility] Comment on above: Performed By: #### U TIFFANIE, MG, RENAL #### [facility] [address] [address] [address] Nunu Borges MCV (RBC) [Entitic vol] 88.3 fL Normal 81.0-99.0 The [facility] Comment on above: Performed By: #### U TIFFANIE, MG, RENAL #### [facility] [address] [place] [address] Dr. Nunu Borges MONO # 1.2 103/ul Critically high 0.3-0.8 [facility] Comment on above: Performed By: #### U TIFFANIE, MG, RENAL #### [facility] [address] [address] [address] Nunu Borges Monocytes/100 WBC (Bld) 12.9 % Critically high 1.7-12.0 The [facility] Comment on above: Performed By: #### U TIFFANIE, MG, RENAL #### [facility] [address] [place] [address] Dr. Nunu Borges NEUT # 6.5 103/ul Normal 1.4-6.5 The [facility] Comment on above: Performed By: #### U TIFFANIE, MG, RENAL #### [facility] [address] [address] [address] Nunu Borges Neutrophils/100 WBC (Bld) 69.0 % Normal 43.0-75.0 The [facility] Comment on above: Performed By: #### U TIFFANIE, MG, RENAL #### [facility] [address] [address] [address] Nunu Borges Platelet mean volume (Bld) [Entitic vol] 11.8 fL Normal 9.5-13.5 The [facility] Comment on above: Performed By: #### U TIFFANIE, MG, RENAL #### [facility] [address] [address] [address] Nunu Borges PLT 239 103/ul Normal 150-450 [facility] Comment on above: Performed By: #### U TIFFANIE, MG, RENAL #### [facility] [address] [address] [address] Nunu Borges RBC 3.68 106/ul Critically low 4.20-5.40 [facility] Comment on above: Performed By: #### U TIFFANIE, MG, RENAL #### [facility] [address] [address] [address] Nunu Borges WBC 9.4 103/ul Normal 4.0-11.0 [facility] Comment on above: Performed By: #### U TIFFANIE, MG, RENAL #### [facility] [address] [place] [address] Dr. Nunu Borges POINT OF CARE GLUCOSEon 01-08 Glucose [Mass/Vol] 226 mg/dL Critically high 74-106 [facility] Comment on above: Performed By: #### U TIFFANIE, MG, RENAL #### [facility] [address] [place] [address] Dr. Nunu Borges PROF CHEM 8 (BAS METB)on Anion gap [Moles/Vol] 10.5 mmol/L Normal [facility] Comment on above: Performed By: #### U TIFFANIE, MG, RENAL #### [facility] [address] [address] [address] Nunu Borges Calcium [Mass/Vol] 8.2 mg/dL Critically low 8.5-10.1 [facility] Comment on above: Performed By: #### U TIFFANIE, MG, RENAL #### [facility] [address] [place] [address] Dr. Nunu Borges Chloride [Moles/Vol] 103 mmol/L Normal 98-107 [facility] Comment on above: Performed By: #### U TIFFANIE, MG, RENAL #### [facility] [address] [place] [address] Dr. Nunu Borges CO2 [Moles/Vol] 26.0 mmol/L Normal 21.0-32.0 [facility] Comment on above: Performed By: #### U TIFFANIE, MG, RENAL #### [facility] [address] [address] [address] Nunu Borges Creatinine [Mass/Vol] 1.04 mg/dL Critically high 0.55-1.02 [facility] Comment on above: Performed By: #### U TIFFANIE, MG, RENAL #### [facility] [address] [address] [address] Nunu Borges EGFR-AF PORTUGUESE >60 Normal >=60 The [facility] Comment on above: Performed By: #### U TIFFANIE, MG, RENAL #### [facility] [address] [address] [address] Nunu Borges EGFR-NON AF PORTUGUESE 53 mL/min/1.73m2 Critically low >=60 The [facility] Comment on above: Performed By: #### U TIFFANIE, MG, RENAL #### [facility] [address] [address] [address] Nunu Borges Glucose [Mass/Vol] 91 mg/dL Normal 74-106 [facility] Comment on above: Performed By: #### U TIFFANIE, MG, RENAL #### [facility] [address] [address] [address] Nunu Borges Potassium [Moles/Vol] 3.5 mmol/L Normal 3.5-5.1 The [facility] Comment on above: Performed By: #### U TIFFANIE, MG, RENAL #### [facility] [address] [address] [address] Nunu Borges Sodium [Moles/Vol] 136 mmol/L Normal 136-145 [facility] Comment on above: Performed By: #### U TIFFANIE, MG, RENAL #### [facility] [address] [address] [address] Nunu Borges Urea nitrogen [Mass/Vol] 32.0 mg/dL Critically high 7.0-18.0 [facility] Comment on above: Performed By: #### U TIFFANIE, MG, RENAL #### [facility] [address] [address] [address] Nunu Borges Urea nitrogen/Creatinine [Mass ratio] 30.8 mg/mg Normal The [facility] Comment on above: Performed By: #### U TIFFANIE, MG, RENAL #### [facility] [address] [address] [address] Nunu Borges CBC AUTO DIFFon 01-26-2022 BASO # 0.0 103/ul Normal 0.0-0.1 [facility] Comment on above: Performed By: #### C BC #### [facility] [address] [place] [address] Dr. Nunu Borges Basophils/100 WBC (Bld) 0.1 % Critically low 0.2-2.0 [facility] Comment on above: Performed By: #### C BC #### [facility] [address] [place] [address] Dr. Nunu Borges EO # 0.1 103/ul Normal 0.0-0.7 [facility] Comment on above: Performed By: #### C BC #### [facility] [address] [place] [address] Dr. Nunu Borges Eosinophils/100 WBC (Bld) 0.4 % Critically low 0.9-7.0 [facility] Comment on above: Performed By: #### C BC #### [facility] [address] [place] [address] Dr. Nunu Borges Erythrocyte distribution width (RBC) [Ratio] 12.2 % Normal 11.0-15.0 [facility] Comment on above: Performed By: #### C BC #### [facility] [address] [place] [address] Dr. Nunu Borges Hematocrit (Bld) [Volume fraction] 36.7 % Normal 36.0-48.0 [facility] Comment on above: Performed By: #### C BC #### [facility] [address] [place] [address] Dr. Nunu Borges Hemoglobin (Bld) [Mass/Vol] 12.1 g/dL Normal 12.0-16.0 The [facility] Comment on above: Performed By: #### C BC #### [facility] [address] [address] [address] Nunu Borges IG # 0.42 10e3/ul Critically high 0.00-0.03 [facility] Comment on above: Performed By: #### C BC #### [facility] [address] [address] [address] Nunu Borges IG % 2.4 % Critically high 0.0-0.5 [facility] Comment on above: Performed By: #### C BC #### [facility] [address] [address] [address] Nunu Borges LYMPH # 0.8 103/ul Critically low 1.2-3.8 [facility] Comment on above: Performed By: #### C BC #### [facility] [address] [place] [address] Dr. Nunu Borges Lymphocytes/100 WBC (Bld) 4.5 % Critically low 20.5-60.0 [facility] Comment on above: Performed By: #### C BC #### [facility] [address] [address] [address] Nunu Borges MANUAL DIFF REQ NO Normal [facility] Comment on above: Performed By: #### C BC #### [facility] [address] [address] [address] Nunu Borges MCH (RBC) [Entitic mass] 29.2 pg Normal 26.7-34.0 [facility] Comment on above: Performed By: #### C BC #### [facility] [address] [address] [address] Nunu Borges MCHC (RBC) [Mass/Vol] 33.0 g/dL Normal 29.9-35.2 [facility] Comment on above: Performed By: #### C BC #### [facility] [address] [address] [address] Nunu Borges MCV (RBC) [Entitic vol] 88.6 fL Normal 81.0-99.0 [facility] Comment on above: Performed By: #### C BC #### [facility] [address] [address] [address] Nunu Borges MONO # 1.4 103/ul Critically high 0.3-0.8 [facility] Comment on above: Performed By: #### C BC #### [facility] [address] [address] [address] Nunu Borges Monocytes/100 WBC (Bld) 7.6 % Normal 1.7-12.0 [facility] Comment on above: Performed By: #### C BC #### [facility] [address] [place] [address] Dr. Nunu Borges NEUT # 15.0 103/ul Critically high 1.4-6.5 [facility] Comment on above: Performed By: #### C BC #### [facility] [address] [place] [address] Dr. Nunu Borges Neutrophils/100 WBC (Bld) 85.0 % Critically high 43.0-75.0 [facility] Comment on above: Performed By: #### C BC #### [facility] [address] [place] [address] Dr. Nunu Borges Platelet mean volume (Bld) [Entitic vol] 11.5 fL Normal 9.5-13.5 [facility] Comment on above: Performed By: #### C BC #### [facility] [address] [place] [address] Dr. Nunu Borges PLT 277 103/ul Normal 150-450 The [facility] Comment on above: Performed By: #### C BC #### [facility] [address] [place] [address] Dr. Nunu Borges RBC 4.14 106/ul Critically low 4.20-5.40 [facility] Comment on above: Performed By: #### C BC #### [facility] [address] [place] [address] Dr. Nunu Borges WBC 17.7 103/ul Critically high 4.0-11.0 The [facility] Comment on above: Performed By: #### C BC #### [facility] [address] [address] [address] Nunu Borges CULTURE BLOODon 01-26-2022 Microscopic examination of blood, culture Culture Observations: NO GROWTH AT 5 DAYS. Normal The [facility] Comment on above: Performed By: #### U AMIC #### [facility] [address] [place] [address] Dr. Nunu Borges Microscopic examination of blood, culture Culture Observations: NO GROWTH AT 5 DAYS. Normal The [facility] Comment on above: Performed By: #### U AMIC #### [facility] [address] [place] [address] Dr. Nunu Borges CULTURE URINEon 01-26-2022 CULTURE URINE Culture Observations: LIGHT GROWTH OF MIXED GENITAL GABRIELLE. NO POTENTIAL PATHOGENS SEEN. Normal The [facility] Comment on above: Performed By: #### U AMIC #### [facility] [address] [place] [address] Dr. Nunu Borges Covid-19 PCR (CVDTB)on 01-08 SARS-CoV-2 (COVID-19) RNA GREG+probe Ql (Unsp spec) Detected Critically abnormal NOT DETECTED The [facility] Comment on above: Result Comment: This test is not yet approved or cleared by the [place] FDA. When there are no FDA-approved or cleared tests available, and other criteria are met, FDA can make tests available under an emergency access mechanism called an Emergency Use Authorization (EUA). The EUA for this test is supported by the [place] of Health and Human Service's declaration that [...] longer be used). Performed By: #### C VDTBH #### [facility] [address] [place] [address] Dr. Nunu Borges ER URINE PROFILEon 2 Bilirubin Ql (U) Negative Normal NEGATIVE The [facility] Comment on above: Performed By: #### U AMIC #### [facility] [address] [address] [address] Nunu Borges Clarity (U) CLEAR Normal CLEAR The [facility] Comment on above: Performed By: #### U AMIC #### [facility] [address] [address] [address] Nunu Borges Color (U) LT. YELLOW Normal YELLOW The [facility] Comment on above: Performed By: #### U AMIC #### [facility] [address] [address] [address] Nunu MCCLOUDAHShana A micrscopic examination will be performed if indicated. Normal The [facility] Comment on above: Performed By: #### U AMIC #### [facility] [address] [place] [address] Dr. Nunu Borges Glucose Ql (U) Negative Normal NEGATIVE The [facility] Comment on above: Performed By: #### U AMIC #### [facility] [address] [place] [address] Dr. Nunu Borges Hemoglobin Ql (U) Negative Normal NEGATIVE The [facility] Comment on above: Performed By: #### U AMIC #### [facility] [address] [place] [address] Dr. Nunu Borges Ketones Ql (U) Negative Normal NEGATIVE The [facility] Comment on above: Performed By: #### U AMIC #### [facility] [address] [place] [address] Dr. Nunu Borges LEUKOCYTES MODERATE Abnormal NEGATIVE [facility] Comment on above: Performed By: #### U AMIC #### [facility] [address] [place] [address] Dr. Nunu Borges Nitrite Ql (U) Negative Normal NEGATIVE The [facility] Comment on above: Performed By: #### U AMIC #### [facility] [address] [place] [address] Dr. Nunu Borges pH (U) 6.0 [pH] Normal 5-9 The [facility] Comment on above: Performed By: #### U AMIC #### [facility] [address] [place] [address] Dr. Nunu Borges SPEC GRAVITY 1.010 Normal 1.005-<=1.025 The [facility] Comment on above: Performed By: #### U AMIC #### [facility] [address] [place] [address] Dr. Nunu Borges UA PROTEIN Negative Normal NEGATIVE/ TRACE [facility] Comment on above: Performed By: #### U AMIC #### [facility] [address] [address] [address] Nunu Borges UR MICRO IND INDICATED Normal [facility] Comment on above: Performed By: #### U AMIC #### [facility] [address] [address] [address] Nunu Borges Urobilinogen Qn (U) 0.2 {Myiram'U}/dL Normal 0.2 - 1. 0 [facility] Comment on above: Performed By: #### U AMIC #### [facility] [address] [place] [address] Dr. Nunu Borges POINT OF CARE GLUCOSEon 01-08 Glucose [Mass/Vol] 262 mg/dL Critically high 74-106 [facility] Comment on above: Performed By: #### U TIFFANIE, MG, RENAL #### [facility] [address] [place] [address] Dr. Nunu Borges PROF CHEM 8 (BAS METB)on Anion gap [Moles/Vol] 18.7 mmol/L Normal [facility] Comment on above: Performed By: #### U AMIC #### [facility] [address] [place] [address] Dr. Nunu Borges Calcium [Mass/Vol] 9.0 mg/dL Normal 8.5-10.1 [facility] Comment on above: Performed By: #### U AMIC #### [facility] [address] [place] [address] Dr. Nunu Borges Chloride [Moles/Vol] 95 mmol/L Critically low 98-107 [facility] Comment on above: Performed By: #### U AMIC #### [facility] [address] [place] [address] Dr. Nunu Borges CO2 [Moles/Vol] 20.6 mmol/L Critically low 21.0-32.0 [facility] Comment on above: Performed By: #### U AMIC #### [facility] [address] [address] [address] Nunu Borges Creatinine [Mass/Vol] 1.79 mg/dL Critically high 0.55-1.02 [facility] Comment on above: Performed By: #### U AMIC #### [facility] [address] [address] [address] Nunu Borges EGFR-AF PORTUGUESE 21 mL/min/1.73m2 Critically low >=60 [facility] Comment on above: Performed By: #### U AMIC #### [facility] [address] [address] [address] Nunu Borges EGFR-NON AF [place]UG[place] 18 mL/min/1.73m2 Critically low >=60 [facility] Comment on above: Performed By: #### U AMIC #### [facility] [address] [address] [address] Nunu Borges Glucose [Mass/Vol] 261 mg/dL Critically high 74-106 [facility] Comment on above: Performed By: #### U AMIC #### [facility] [address] [address] [address] Nunu Borges Potassium [Moles/Vol] 4.3 mmol/L Normal 3.5-5.1 [facility] Comment on above: Performed By: #### U AMIC #### [facility] [address] [address] [address] Nunu Borges Sodium [Moles/Vol] 130 mmol/L Critically low 136-[address] [facility] Comment on above: Performed By: #### U AMIC #### [facility] [address] [address] [address] Nunu Borges Urea nitrogen [Mass/Vol] 54.0 mg/dL Critically high 7.0-18.0 [facility] Comment on above: Performed By: #### U AMIC #### [facility] [address] [address] [address] Nunu Borges Urea nitrogen/Creatinine [Mass ratio] 30.2 mg/mg Normal The [facility] Comment on above: Performed By: #### U AMIC #### [facility] [address] [place] [address] Dr. Nunu Borges URINE MICROSCOPIC ONLYon BACTERIA TRACE Abnormal NONE SEEN The [facility] Comment on above: Performed By: #### U AMIC #### [facility] [address] [place] [address] Dr. Nunu Borges Bacteria identified Cx Nom (U) INDICATED Normal [facility] Comment on above: Performed By: #### U AMIC #### [facility] [address] [place] [address] Dr. Nunu Borges CAST SEEN Abnormal NONE SEEN [facility] Comment on above: Performed By: #### U AMIC #### [facility] [address] [place] [address] Dr. Nunu Borges Crystals LM Nom (Urine sed) NONE SEEN Normal NONE SEEN [facility] Comment on above: Performed By: #### U AMIC #### [facility] [address] [place] [address] Dr. Nunu Borges Epithelial cells LM Ql (Urine sed) RARE Normal NONE SEEN /RARE The [facility] Comment on above: Performed By: #### U AMIC #### [facility] [address] [place] [address] Dr. Nunu Borges HYALINE CAST RARE Normal The [facility] Comment on above: Performed By: #### U AMIC #### [facility] [address] [place] [address] Dr. Nunu Borges MUCOUS NONE SEEN Normal NONE SEEN [facility] Comment on above: Performed By: #### U AMIC #### [facility] [address] [place] [address] Dr. Nunu Borges RBC 0-2 Normal 0-2 [facility] Comment on above: Performed By: #### U AMIC #### [facility] [address] [place] [address] Dr. Nunu Borges WBC 2-5 Abnormal NONE SEEN The [facility] Comment on above: Performed By: #### U AMIC #### [facility] [address] [address] [address] Nunu Borges Covid-19 PCR ([facility])on 01-07 SARS-CoV-2 (COVID-19) RNA GREG+probe Ql (Unsp spec) Detected Critically abnormal NOT DETECTED The [facility] Comment on above: Result Comment: This test is not yet approved or cleared by the [place] FDA. When there are no FDA-approved or cleared tests available, and other criteria are met, FDA can make tests available under an emergency access mechanism called an Emergency Use Authorization (EUA). The EUA for this test is supported by the [employer] of Health and Human Service's declaration that [...] for this test is supported by the [place] of Health and Human Service's (HHS's) declaration that circumstances exist to justify the [...] used). Performed By: #### C VDTB #### [facility] [address] [address] [address] Nunu Borges MG MAMM SCREEN 3D RODERICK CADon 01-09-2022 MG MAMM SCREEN 3D RODERICK CAD Patient: LONDON COURTNEY Exam Date: 01/09/2022 : 1955 Gender:F Ordering : DR MARIBEL ALVAREZ . Admission #: [id number] Family : Order #: [id number] CLICK HERE TO VIEW EXAM RADIOLOGY REPORT [...] No Treatments None Family Cancers None LOCATION: [facility] BREAST COMPOSITION: Almost entirely fatty. FINDINGS: [...] Licea MD on 01/09/2022 at 12:50 Normal [facility] Cytologyon 07-20-2020 Cytology (NOTE) INTERPRETATION Cervical material, (ThinPrep vial, Imaging-assisted review): Specimen Adequacy: Satisfactory for evaluation. - Endocervical/transfo rmation zone component present. Descriptive Diagnosis: Negative for intraepithelial lesion or malignancy. 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: CARLOS Steward(ASCP) Electronically Signed Out chris/07/22/2020 Source: 1: Cervical material, (ThinPrep vial, Imaging-assisted review) Clinical History Postmenopausal Z12.4 Encounter for screening for malignant neoplasm of cervix GYNECOLOGIC CYTOLOGY REPORT Patient Name: LONDON COURTNEY [facility] Rec: [id number] Path Number: [id number] [employer] [facility] ANATOMIC PATHOLOGY [address] [place] [id number] Normal [facility] Comment on above: Performed By: #### P PPVP #### [facility] [address] [place] [id number] Lath Hand: Jeremiah Acosta MD Main OR Intraoperative Recor handy 11-06-2017 Main OR Intraoperative Record IntraOp Document Type FTURO Summary Primary Physician: Juan Delarosa Jr., MD Finalized Date/Time: 11/06/17 12:28:35 Pt. Name: LONDON COURTNEY /Sex: 1955 Female Med Rec #: [id number] Physician: Juan Delarosa Jr., MD Financial #: [id number] Pt. Type: O Room/Bed: / Admit/Disch: 10/11/17 12:38:00 - 10/11/17 23:59:00 Institution: Case Times FTURO Entry 1 Patient Times In Room 10/11/17 13:16:00 Out Room 10/11/17 13:22:00 Procedure Times Start 10/11/17 13:18:00 Stop 10/11/17 13:21:00 Anesthesia Times Last Modified By: SAAD Simons RNOR, Keerthi Matthew 10/11/17 13:21:50 Case Attendance FTURO Entry 1 Entry 2 Entry 3 Case Attendee Kristyn PRADHAN, CNOR, Keerthi Islas CST, Juan Mccann Jr., MD Role Performed Geological E Logger - Primary Scrub - Primary Surgeon - Primary Time In 10/11/17 13:16:00 10/11/17 13:16:00 10/11/17 13:18:00 Time Out 10/11/17 13:22:00 10/11/17 13:22:00 10/11/17 13:22:00 Procedure CYSTOSCOPY LOCAL(.) CYSTOSCOPY LOCAL(.) CYSTOSCOPY LOCAL(.) Comments Last Modified By: Kristyn PRADHAN, SAADOR, Keerthi Simons RN, SAADOR, Keerthi Simons RN, SAADOR, Kate 10/11/17 13:21:53 10/11/17 13:21:53 10/11/17 13:21:53 Surgical Procedures FTURO Entry 1 Procedure Description Procedure CYSTOSCOPY LOCAL Modifiers . Surgeon Description CYSTOSCOPY with dilitation Primary Procedure Yes Primary Surgeon Juan Delarosa Jr., MD Start 10/11/17 13:18:00 Stop 10/11/17 13:21:00 Anesthesia Type Local Surgical Service Urology Wound Class 2 - Clean-Contaminated Last Modified By: KIET Simons RN, Lou Ann 10/11/17 13:21:46 General Case Data FTURO Pre-Care [...] Verified Availability Equipment, Medication Time Out Washington Bennett MD, Juan Rios, Verified (If Participants KIET Simons RN, Lou Applicable) Janel Matthew CST, [place] Time Out Complete 10/11/17 13:18:00 Allergies Reviewed? Yes Allergies Reviewed Self/Patient With Body Position Frog Legged Prep Area PERINIUM Prep Agents Betadine Solution Skin. Condition Intact, Ringsted, Warm, and Dry Additional None Specimens Collected [...] Simons RN, Lou Ann 11/06/17 12:28 Normal [facility] Main OR Preoperative Recordo n 11-06-2017 Main OR Preoperative Record Holding Area Document Type FTURO Summary Primary Physician: Juan Delarosa Jr., MD Finalized Date/Time: 11/06/17 12:28:41 Pt. Name: LONDON COURTNEY Candy/Sex: 1955 Female Med Rec #: [id number] Physician: Juan Delarosa Jr., MD Financial #: [id number] Pt. Type: O Room/Bed: / Admit/Disch: 10/11/17 [...] of Pain: No Comment: Skin Integrity Intact, Ringsted, Warm, & Dry Vitals - EU Blood Pressure 98/55 Pulse 76 bpm Respirations 18 br/min SPO2 RN Reviewed Yes Last Modified By: KIET Simons RN, Lou Ann 10/11/17 13:00:54 Finalized By: KIET Simons RN, Lou Ann Document Signatures Signed By: KIET Simons RN, Lou Ann 10/11/17 13:00 Karen Rutherford LPN 10/11/17 12:58 KIET Simons RN, Lou Ann 11/06/17 12:28 Normal [facility] Coding Summary.on 10-19-2017 Coding Summary. CODING DATE: 10/19/2017 FINAL [place] [facility] STATUS: Home (Routine DC) PAYOR: Commercial Insurance [...] disease N18.9 Chronic kidney disease, unspecified Z79.82 group home (current) use of aspirin Z87.891 Personal history of nicotine dependence PYMT PROC APC STAT DESCRIPTION DOCTOR NAME DATE NOTE: The code number assigned matches the documented diagnosis and / or procedure in the patient's chart. However, the narrative phrase printed from the coding software may appear abbreviated, or result in slightly different terminology. Coded By: Ellie Saldaña Date Saved: 10/19/2017 08:52 am Normal [facility] Operative Reporton 8 Operative Report Patient: LONDON COURTNEY Age: 61 years Sex: Female : 1955 Associated Diagnoses: None Author: Washington Bennett MD, Juan Rios Procedure Operative Information Details: [...] urine. The Urethra was dilated to: 30 Mexican w/ sounds. Devices Implanted: None. Removal: Cystoscope [...] negative. This completes her hematuria workup.. Normal [facility] Comment on above: Result Comment: Elec tronically Signed By: Washington Bennett MD, Juan Rios\.br\Date and Time Signed: 10/11/17 13:26 EDT Vital Signs Date Time Vital Sign Value Performing Clinician Facility 04-05-2023 10:00-0500 Body height 154.94 cm Ghislaine Ada Other [facility] Other 04-05-2023 10:00-0500 Body mass index (BMI) [Ratio] 29.85 kg/m2 Ghislaine Ada Other [facility] Other 04-05-2023 10:00-0500 Body temperature 97.2 [degF] Ghislaine Ada Other [facility] Other 04-05-2023 10:00-0500 Body weight 71.67 kg Ghislaine Ada Other [facility] Other 04-05-2023 10:00-0500 Diastolic blood pressure 60 mm[Hg] Ghislaine Ada Other [facility] Other 04-05-2023 10:00-0500 Respiratory rate 18 /min Ghislaine Ada Other [facility] Other 04-05-2023 10:00-0500 SaO2% (BldA) [Mass fraction] 98 % Ghislaien Ada Other [facility] Other 04-05-2023 10:00-0500 Systolic blood pressure 124 mm[Hg] Ghislaine Ada Other [facility] Other 09-07-2022 14:00-0400 Body height 154.94 cm Ghislaine Ada Other [facility] Other 09-07-2022 14:00-0400 Body mass index (BMI) [Ratio] 29.47 kg/m2 Ghislaine Ada Other [facility] Other 09-07-2022 14:00-0400 Body temperature 97.3 [degF] Ghislaine Ada Other [facility] Other 09-07-2022 14:00-0400 Body weight 70.76 kg Ghislaine Ada Other [facility] Other 09-07-2022 14:00-0400 Diastolic blood pressure 70 mm[Hg] Ghislaine Ada Other [facility] Other 09-07-2022 14:00-0400 Respiratory rate 18 /min Ghislaine Ada Other [facility] Other 09-07-2022 14:00-0400 SaO2% (BldA) [Mass fraction] 97 % Ghislaine Ada Other [facility] Other 09-07-2022 14:00-0400 Systolic blood pressure 110 mm[Hg] Ghislaine Ada Other [facility] Other 03-23-2022 11:20-0500 Body height 154.94 cm Ghislaine Ada Other [facility] Other 03-23-2022 11:20-0500 Body mass index (BMI) [Ratio] 28.75 kg/m2 Ghislaine Ada Other [facility] Other 03-23-2022 11:20-0500 Body temperature 96.2 [degF] Ghislaine Ada Other [facility] Other 03-23-2022 11:20-0500 Body weight 69.04 kg Ghislaine Ada Other [facility] Other 03-23-2022 11:20-0500 Diastolic blood pressure 80 mm[Hg] Ghislaine Ada Other [facility] Other 03-23-2022 11:20-0500 Respiratory rate 18 /min Ghislaine Ada Other [facility] Other 03-23-2022 11:20-0500 SaO2% (BldA) [Mass fraction] 96 % Ghislaine Ada Other [facility] Other 03-23-2022 11:20-0500 Systolic blood pressure 122 mm[Hg] Ghislaine Ada Other [facility] Other 09-01-2021 11:00-0400 Body height 154.94 cm Ghislaine Ada Other [facility] Other 09-01-2021 11:00-0400 Body mass index (BMI) [Ratio] 31.29 kg/m2 Ghislaine Ada Other [facility] Other 09-01-2021 11:00-0400 Body temperature 96.8 [degF] Ghislaine Ada Other [facility] Other 09-01-2021 11:00-0400 Body weight 75.12 kg Ghislaine Ada Other [facility] Other 09-01-2021 11:00-0400 Diastolic blood pressure 74 mm[Hg] Ghislaine Ada Other [facility] Other 09-01-2021 11:00-0400 Respiratory rate 18 /min Ghislaine Ada Other [facility] Other 09-01-2021 11:00-0400 SaO2% (BldA) [Mass fraction] 97 % Ghislaine Ada Other [facility] Other 09-01-2021 11:00-0400 Systolic blood pressure 130 mm[Hg] Ghislaine Ada Other [facility] Other 02-10-2021 10:20-0400 Body height 154.94 cm Ghislaine Ada Other [facility] Other 02-10-2021 10:20-0400 Body mass index (BMI) [Ratio] 30.83 kg/m2 Ghislaine Ada Other [facility] Other 02-10-2021 10:20-0400 Body temperature 96 [degF] Ghislaine Ada Other [facility] Other 02-10-2021 10:20-0400 Body weight 74.03 kg Ghislaine Ada Other [facility] Other 02-10-2021 10:20-0400 Diastolic blood pressure 74 mm[Hg] Ghislaine Ada Other [facility] Other 02-10-2021 10:20-0400 Respiratory rate 18 /min Ghislaine Ada Other [facility] Other 02-10-2021 10:20-0400 SaO2% (BldA) [Mass fraction] 94 % Ghislaine Ada Other [facility] Other 02-10-2021 10:20-0400 Systolic blood pressure 110 mm[Hg] Ghislaine Ada Other [facility] Other Encounters Encounter Date Encounter Type Care Provider Facility Start: 09-25-2023 End: 09-25-2023 ambulatory MARIBEL ALVAREZ Not Available Start: 09-24-2023 End: 09-24-2023 ambulatory SHARONA GUILLEN Not Available Start: 09-20-2023 End: 09-20-2023 ambulatory ARIANNA GUY Not Available Start: 09-19-2023 End: 09-19-2023 ambulatory BROCK FISHER [facility] Start: 09-19-2023 End: 09-19-2023 ambulatory BROCK FISHER [facility] Start: 09-19-2023 Encounter for other preprocedural examination BROCK FISHER [facility] Start: 08-01-2023 End: 08-01-2023 ambulatory BROCK BENNETT Not Available Start: 07-23-2023 End: 07-23-2023 ambulatory SAGE AMOS Not Available Start: 06-19-2023 End: 06-19-2023 ambulatory ANAIS MELTON Not Available Start: 06-12-2023 End: 06-12-2023 ambulatory MARIBEL ALVAREZ Not Available Start: 04-05-2023 End: 04-05-2023 ambulatory Ghislaine Ada Other [facility] Start: 04-05-2023 Office outpatient vi sit 25 minutes Ghislaine Ada [facility] Start: 09-07-2022 End: 09-07-2022 ambulatory Ghislaine Ada Other [facility] Other Start: 09-07-2022 Office outpatient vi sit 15 minutes Ghislaine Ada [facility] Start: 08-31-2022 End: 09-01-[address] MARIBEL ALVAREZ Facility:[facility] Start: 08-18-2022 End: 08-19-[address] MARIBEL ALVAREZ Facility:[facility] Start: 07-26-2022 End: 07-26-[address] MARIBEL ALVAREZ Facility:[facility] Start: 07-18-2022 End: 07-18-2022 ambulatory Ghislaine Ada Other [facility] Start: 07-18-2022 Telephone encounter Ghislaine Ada [facility] Start: 03-23-2022 End: 03-23-2022 ambulatory Ghislaine Ada Other [facility] Start: 03-23-2022 Office outpatient vi sit [...] 09-13-2021 End: 09-13-2021 ambulatory Ghislaine Ada Other [facility] Start: 09-13-2021 Telephone encounter Ghislaine Ada [facility] Start: 09-01-2021 End: 09-01-2021 ambulatory Ghislaine Ada Other [facility] Start: 09-01-2021 Office outpatient vi sit 25 minutes Ghislaine Ada [facility] Start: 09-01-2021 Telephone encounter Ghislaine Ada [facility] Start: 08-22-2021 End: 08-22-2021 ambulatory Ghislaine Ada Other [facility] Start: 08-22-2021 Telephone encounter Ghislaine Ada [facility] Start: 08-15-2021 End: 08-15-2021 ambulatory Ghislaine Ada Other [facility] Start: 08-15-2021 Telephone encounter Ghislaine Ada [facility] Start: 05-24-2021 End: 05-24-2021 ambulatory Ghislaine Ada Other [facility] Start: 05-24-2021 Telephone encounter Ghislaine Ada [facility] Start: 02-21-2021 End: 02-21-2021 ambulatory Ghislaine Ada Other [facility] Start: 02-21-2021 Telephone encounter Ghislaine Ada [facility] Start: 02-11-2021 End: 02-11-2021 ambulatory Ghislaine Ada Other [facility] Start: 02-11-2021 Telephone encounter Ghislaine Ada [facility] Start: 02-10-2021 End: 02-10-2021 ambulatory Ghilsaine Kirkpatrick Other [facility] Other Start: 02-10-2021 Office outpatient vi sit 25 minutes Ghislaine Kirkpatrick [facility] Start: 07-20-2020 End: 07-21-2020 Patient encounter procedure MARIBEL ALVAREZ [facility] Start: 10-11-2017 End: 10-12-2017 Patient encounter Bakari Berg Facility:[facility] Payers Date Payer Category Payer Private Health Insurance [id number] 2020 Unknown [id number] 2017 Private Health Insurance [id number] Self-pay 1955 Unknown [id number] 2.16.8 40.1.793182.3.579.2.173 1955 Unknown [id number] 2.16.84 0.1.739035.3.579.2.593 1955 Unknown [id number] 2.16.84 0.1.423092.3.579.2.593 1955 Unknown [id number] 2.16.84 0.1.209202.3.579.2.593 1953 Unknown [id number] 2.16.84 0.1.002716.3.579.2.593 1953 Unknown [id number] 2.16.84 0.1.070703.3.579.2.593 1953 Unknown [id number] 2.16.84 0.1.936562.3.579.2.593 1953 Unknown [id number] 2.16.84 0.1.125952.3.579.2.593 1953 Unknown [id number] 2.16.84 0.1.390059.3.579.2.593 1953 Unknown [id number] 2.16.84 0.1.690343.3.579.2.593 1953 Unknown [id number] 2.16.84 0.1.318214.3.579.2.593 1953 Unknown [id number] 2.16.84 0.1.243652.3.579.2.593 1953 Unknown [id number] 2.16.8 40.1.946890.3.579.2.1286 1953 Unknown [id number] 2.16.8 40.1.002976.3.579.2.128 1955 Unknown [id number] 2.16.8 40.1.007308.3.579.2.1286 1953 Unknown [id number] 2.16.8 40.1.883738.3.579.2.1286 1953 Unknown [id number] 2.16.8 40.1.808846.3.579.2.1286 1953 Unknown [id number] 2.16.84 0.1.450924.3.579.2.1259 1953 Unknown [id number] 2.16.84 0.1.575496.3.579.2.1259 1953 Unknown [id number] 2.16.84 0.1.612879.3.579.2.1259 1953 Unknown [id number] 2.16.84 0.1.681622.3.579.2.1259 1953 Unknown [id number] 2.16.84 0.1.128033.3.579.2.1259 1953 Unknown [id number] 2.16.84 0.1.156185.3.579.2.1259 1953 Unknown [id number] 2.16.84 0.1.744075.3.579.2.1259 1953 Unknown [id number] 2.16.84 0.1.244624.3.579.2.1259 1955 Unknown [id number] 2.16.84 0.1.222858.3.579.2.1259 Medicare [id number] 2. 16.840.1.012032.19 Unknown [id number] 2.16.84 0.1.441005.3.579.2.593 Social History Date Type Detail Facility Unknown if ever smoked [facility] Other Sex Assigned At Sex Assigned At Bir th [facility] Other Clinical Notes 12-27-2016 to 09-22-2023 Note Date & Type Note Facility 09-22-2023 Note XR BONE LENGTH STUDY Bone length evaluation History: Osteoarthritis, limb length and alignment, knee pain Comparison: Findings: Standing frontal view of the bilateral lower extremities obtained from the iliac crest through the feet for limb length and alignment without marker device. Severe degenerative changes of the left hip with complete joint space loss and narrowing osteophyte formation. Severe right hip degenerative changes. There are degenerative changes of both knees and both ankles. Impression: Severe degenerative changes of the left greater than right hip. Degenerative changes of the bilateral knees. Symmetric alignment. Finalized by Kelly Mckeon MD on 09/22/2023 8:01 AM [facility] 04-05-2023 Evaluation note Encounter Date Diagnosis Assessment [...] monitor LFTs and lipid profile with PCP [facility] Other 06-01-2023 Evaluation note* Encounter Date Diagnosis [...] monitor LFTs and lipid profile with PCP [facility] Other 05-12-2023 NotePROCEDURE: XR KNEE LT 3V HISTORY: Pain of joint of knee ; acute left knee pain COMPARISON: None. FINDINGS: BONES:No fracture, acute abnormality, or significant arthropathy. SOFT TISSUES:No visible soft tissue swelling. EFFUSION:None visible. OTHER: Negative. IMPRESSION: 1. No appreciable acute abnormality or significant degenerative joint disease. Electronically authenticated by: PEGGY CORTEZ Date: 2022-08-18 12:27[facility]12-15-2022 Evaluation note* Encounter Date Diagnosis Assessment [...] within the goal. Continue oral vitamin D [facility] Other 07-12-2022 NotePROCEDURE: XR PELVIS W_OBL MIN [...] Electronically authenticated by: CONNIE LICEA Date: 2021-10-18 19:13[facility]05-26-2022 Evaluation note* Encounter Date Diagnosis Assessment [...] within the goal. Continue oral vitamin D [facility] Other 05-26-2022 Evaluation note* Encounter Date Diagnosis Assessment Notes Treatment Notes Treatment Clinical Notes August, Type 2 diabetes mellitus with diabetic chronic kidney disease (ICD-10 - E11.22) [facility] Other 11-04-2021 Evaluation note* Encounter Date Diagnosis [...] iron studies. She had a colonoscopy in 2017. Feb, Hypertensive chronic kidney disease with stage [...] the goal and Vit D is normal. [facility] Other 09-20-2017 History general Narrative - Reported* Type Description Date Medical History diabetes mellitus Medical History hypertension Medical History hyperlipidemia Surgical History COLONOSCOPY NORMAL P ER PATIENT AT [facility] 12-27-2016 Hospitalization History [facility] 2016 [facility] Other 09-20-2017 History general Narrative - Reported* Type Description Date Medical History diabetes mellitus Medical History hypertension Medical History hyperlipidemia Surgical History COLONOSCOPY NORMAL P ER PATIENT AT [facility] 12-27-2016 Hospitalization History 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 08/09/2021 [facility] Other 09-20-2017 History general Narrative - Reported* Type Description Date Medical History diabetes mellitus Medical History hypertension Medical History hyperlipidemia Surgical History COLONOSCOPY NORMAL P ER PATIENT AT [facility] 12-27-2016 Hospitalization History Dehydration [place] [facility] 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, UTI, SEPSIS 08/09/2021 [facility] Other 09-20-2017 History general Narrative - Reported* Type Description Date Medical History diabetes mellitus Medical History hypertension Medical History hyperlipidemia Medical History OSTEOPOROSIS Surgical History COLONOSCOPY NORMAL P ER PATIENT AT [facility] 12-27-2016 Hospitalization History Dehydration [place] [facility]. 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, UTI, SEPSIS 08/09/2021 [facility] Other Evaluation noteNo [facility]No[facility] Other [facility]No[facility] Other History general Narrative - ReportedNo[facility] Other Summary Purpose Family History No Family History Records FoundNo Family History Records FoundNo Family History Records FoundNo Family History Records FoundNo Family History Records Found Advance Directives No Advanced Directives Records FoundNo Advanced Directives Records FoundNo Advanced Directives Records FoundNo Advanced Directives Records FoundNo Advanced Directives Records Found Additional Source Comments INFORMATION SOURCE (unrecogn ized section and content) DATE CREATED AUTHOR 12/05/2017 [facility] DATE CREATED AUTHOR AUTHOR'S ORGANIZ ATION [facility] DATE CREATED AUTHOR AUTHOR'S ORGANIZ ATION 09/16/2022 [facility] DATE CREATED AUTHOR AUTHOR'S ORGANIZ ATION 09/23/2023 [facility] DATE CREATED AUTHOR AUTHOR'S ORGANIZ ATION 09/25/2023 [facility] EPIC REASON FOR VISIT [...] BE BASED ON THE PRIMARY CLINICAL RECORDS. [employer] provides no warranty or guarantee of the accuracy or completeness of information in this document.
[2023-09-28 08:12] LABS: Albumin, Random Urine 12.9 ug/mL (Not Estab.)
== END 2023-09-27 13:22 | disposition home or self-care (01) ==
LOC: LAB 13:21
PROVIDERS: PCP Family Medicine; Visit Provider Family Medicine
DX: E11.65 Type 2 diabetes mellitus with hyperglycemia (principal)
CPT/HCPCS: 82043

== ENCOUNTER 2023-10-12 17:43 | Inpatient (IN) | payer OTHER, SELFPAY ==
[2023-10-12] VITALS (14 sets, daily range): BP systolic 107–172; BP diastolic 68–94; PULSE 96–126; TEMP 36.8–37.5; O2SAT 95–97; BMI 22.7; BMI 22.6
--- OUTSIDE RECORDS SUMMARY | 2023-10-12 17:50 | XMS_ITS | CCD ---
Author Organization [facility] Care Team Providers Care Sheet Rock Installer Name Role Phone Rice, Bakari W Unavailable Unavailable Rice, Bakari W Unavailable Unavailable Rice, Bakari W Unavailable Unavailable NADERER, [phone] UNKNOWN Unavailable Unavailable NADERER, MARIBEL AVALOS Primary [...] NADERER, DR MARIBEL Mueller Primary Care Unavailable CARBONDALE, DR CONNIE José Consulting Unavailable NADERER, DR MARIBEL Mueller Admitting Unavailable NADERER, DR MARIBEL Mueller Attending Unavailable NADERER, DR MARIBEL Mueller Consulting Unavailable NADERER, DR MARIBEL Mueller Primary Care Unavailable NADERER, DR MARIBEL Mueller Consulting Unavailable FAWWAD, H Admitting Unavailable FAWWAD, H Attending Unavailable FAWWAD, H Consulting Unavailable ISAMAR WATERS Consulting Unavailable [...] Unavaila ble URI II, CHANO Consulting Unavailable FILUTZANAIS Calderon Consulting Unavailable NADEREaMria L, MARIBEL Attending Unavailable ANAIS MELTON Attending Unavailable SAGE AMOS Attending Unavailable JR. NATALIA, BROCK Crandall Attending Unavaila keith FISHER JR., BROCK Crandall Referring Unavaila ble SAGE AMOS Attending Unavailable ARIANNA GUY Attending Unavailable SAGE AMOS Referring Unavailable RAMBASESHARONA Walter Attending Unavailable SAGE AMOS Referring Unavailable NADERER, MARIBEL Attending Unavailable RAMBASESHARONA Walter Attending Unavailable RAMBASEJose Angel, SHARONA Calderon Attending Unavailable BROCK FISHER JR Referring Unavailabl e NADERER, MARIBEL Primary Care Unavailable BROCK FISHER JR Referring Unavailabl e NADERER, MARIBEL Primary Care Unavailable BROCK FISHER JR Attending Unavailabl e BROCK FISHER JR Referring Unavailabl e NADERER, MARIBEL Primary Care Unavailable BROCK FISHER JR Attending Unavailabl e BROCK FISHER JR Referring Unavailabl e NADERER, MARIBEL Primary Care Unavailable BROCK FISHER JR Attending Unavailabl e BROCK FISHER JR Referring Unavailabl e NADERER, MARIBEL Primary Care Unavailable NADERER, MARIBEL Referring Unavailable NADERER, MARIBEL Primary Care Unavailable Allergies Allergy Classification Reported Allergen(s) Allergy Type Date of Onset Reaction(s) Facility (1 source) No Known Medication Allergies; Translations: [No Known Medication Allergies] Propensity to adverse reactions (disorder) [facility] Repository Medications Current Medications Medication Drug Class(es) [...] Active docusate sodium 50 mg / sennosides, group home 8.6 mg oral tablet (2 sources) take [...] take 1 tablet by emilee th every other day Ferrous Sulfate 325 (65 Fe) MG 1 tablet Orally every other day for 90 day(s) Feb, Active take 1 tablet by emilee th every other day Ferrous Sulfate 325 (65 [...] 2 Chronic Other aftercare (1 source) Other ferry terminal agent (current) drug therapy; Translations: [OTH USP CURRENT DRUG THERAPY] Onset: 3 Episodic Other aftercare (1 source) 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; Translations: [USP CURRENT USE OF ASPIRIN] Onset: 3 Episodic Other aftercare (1 source) exterminator helper termite (current) use of oral hypoglycemic drugs; Translations: [USP USE ORAL HYPOGLYCEMIC DX] Onset: 3 Episodic [...] Anion gap [Moles/Vol] 7 mmol/L Normal 5-15 [facility] Comment on above: Performed By: #### C BCA, BMP, HA1C #### [facility] ([id number]) [address], [address] [place] [address] Calcium [Mass/Vol] 9.7 mg/dL Normal 8.5-10.5 [facility] Comment on above: Performed By: #### C SELAM SALDANA, HA1C #### [facility] ([id number]) [address], [address] [place] [address] Chloride [Moles/Vol] 99 mmol/L Normal 98-109 [facility] Comment on above: Performed By: #### C SELAM SALDANA, HA1C #### [facility] ([id number]) [address], [address] [place] [address] CO2 [Moles/Vol] 30 mmol/L Normal 22-32 [facility] Comment on above: Performed By: #### C SELAM SALDANA, HA1C #### [facility] ([id number]) [address], [address] [place] [address] Creatinine [Mass/Vol] 1.09 mg/dL High 0.40-1.00 [facility] Comment on above: Result Comment: METH OD TRACEABLE TO IDMS STANDARD Performed By: #### C SELAM SALDANA, HA1C #### [facility] ([id number]) [address], [address] [place] [address] GFR/1.73 sq M.predicted among non-blacks MDRD (S/P/Bld) [Vol rate/Area] 55 mL/min/{1.73_m2} Low >59 [facility] Comment on above: Result Comment: Reported eGFR is based on the CKD-EPI 2020 equation that does not use a race coefficient. Performed By: #### C SELAM SALDANA, HA1C #### [facility] ([id number]) [address] [place] [address] Glucose [Mass/Vol] 109 mg/dL High 65-99 [facility] Comment on above: Performed By: #### C SELAM SALDANA, HA1C #### [facility] ([id number]) [address] [address] [place] [address] Potassium [Moles/Vol] 4.1 mmol/L Normal 3.5-5.0 [facility] Comment on above: Performed By: #### C SELAM SALDANA, HA1C #### [facility] ([id number]) [address], [facility] [address] [place] [address] Sodium [Moles/Vol] 136 mmol/L Normal 134-146 [facility] Comment on above: Performed By: #### C SELAM SALDANA, HA1C #### [facility] ([id number]) [address] [address] [place] [address] Urea nitrogen [Mass/Vol] 26 mg/dL Normal 5-27 [facility] Comment on above: Performed By: #### SELAM Crandall BCA, HA1C #### [facility] ([id number]) [address] [address] [place] [address] CBC AND AUTO DIFFon 12-20 24 ABSOLUTE BASOPHIL 0.1 X10E9/L Normal 0.0-0.2 [facility] Comment on above: Performed By: #### C SELAM SALDANA, HA1C #### [facility] ([id number]) [address] [address] [place] [address] ABSOLUTE NEUTROPHIL 3.1 X10E9/L Normal 1.5-6.6 [facility] Comment on above: Performed By: #### C SELAM SALDANA, HA1C #### [facility] ([id number]) [address] [address] [place] [address] Basophils/100 WBC (Bld) 1.1 % Normal [facility] Comment on above: Performed By: #### C SELAM SALDANA, HA1C #### [facility] ([id number]) [address] [address] [place] [address] Eosinophils (Bld) [#/Vol] 0.2 10*3/uL Normal 0.0-0.4 [facility] Comment on above: Performed By: #### SELAM Crandall BCA, HA1C #### [facility] ([id number]) [address], [facility] [address] [place] [address] Eosinophils/100 WBC (Bld) 3.6 % Normal [facility] Comment on above: Performed By: #### SELAM Crandall BCA, HA1C #### [facility] ([id number]) [address], [facility] [address] [place] [address] Erythrocyte distribution width (RBC) [Ratio] 13.3 % Normal 11.5-15.0 [facility] Comment on above: Performed By: #### SELAM Crandall BCA, HA1C #### [facility] ([id number]) [address] [place] [address] Hematocrit (Bld) [Volume fraction] 36.8 % Normal 35-47 [facility] Comment on above: Performed By: #### SELAM Crandall BCA, HA1C #### [facility] ([id number]) [address] [address] [place] [address] Hemoglobin (Bld) [Mass/Vol] 12.0 g/dL Normal 11.7-15.5 [facility] Comment on above: Performed By: #### SELAM Crandall BCA, HA1C #### [facility] ([id number]) [address], [facility] [address] [place] [address] Lymphocytes (Bld) [#/Vol] 1.5 10*3/uL Normal 1.0-3.5 [facility] Comment on above: Performed By: #### SELAM Crandall BCA, HA1C #### [facility] ([id number]) [address] [place] [address] Lymphocytes/100 WBC (Bld) 26.2 % Normal [facility] Comment on above: Performed By: #### SELAM Crandall BCA, HA1C #### [facility] ([id number]) [address] [place] [address] MCH (RBC) [Entitic mass] 30.0 pg Normal 27-34 [facility] Comment on above: Performed By: #### SELAM Crandall BCA, HA1C #### [facility] ([id number]) [address] [place] [address] MCHC (RBC) [Mass/Vol] 32.6 g/dL Normal 32-36 [facility] Comment on above: Performed By: #### SELAM Crandall BCA, HA1C #### [facility] ([id number]) [address] [place] [address] MCV (RBC) [Entitic vol] 92 fL Normal 80-100 [facility] Comment on above: Performed By: #### SELAM Crandall BCA, HA1C #### [facility] ([id number]) [address] [place] [address] Monocytes (Bld) [#/Vol] 0.7 10*3/uL Normal 0-0.9 [facility] Comment on above: Performed By: #### SELAM Crandall BCA, HA1C #### [facility] ([id number]) [address] [place] [address] Monocytes/100 WBC (Bld) 13.1 % Normal [facility] Comment on above: Performed By: #### SELAM Crandall BCA, HA1C #### [facility] ([id number]) [address] [place] [address] Neutrophils/100 WBC (Bld) 56.0 % Normal [facility] Comment on above: Performed By: #### SELAM Crandall BCA, HA1C #### [facility] ([id number]) [address] [address] [place] [address] Platelet mean volume (Bld) [Entitic vol] 9.6 fL Normal 7-12 [facility] Comment on above: Performed By: #### SELAM Crandall BCA, HA1C #### [facility] ([id number]) [address] [address] [place] [address] Platelets (Bld) [#/Vol] 274 10*3/uL Normal 150-450 [facility] Comment on above: Performed By: #### SELAM Crandall BCA, HA1C #### [facility] ([id number]) [address] [address] [place] [address] RBC COUNT 4.00 X10E12/L Normal 3.80-5.20 [facility] Comment on above: Performed By: #### SELAM Crandall BCA, HA1C #### [facility] ([id number]) [address] [address] [place] [address] WBC (Bld) [#/Vol] 5.6 10*3/uL Normal 4.0-11.0 [facility] Comment on above: Performed By: #### SELAM Crandall BCA, HA1C #### [facility] ([id number]) [address] [address] [place] [address] HGB A1C (GLYCO-HGB)on 2023 Glucose [Mass/Vol] 131 mg/dL Normal [facility] Comment on above: Performed By: #### SELAM Crandall BCA, HA1C #### [facility] ([id number]) [address] [address] [place] [address] HbA1c (Bld) [Mass fraction] 6.2 % High 4.4-5.6 [facility] Comment on above: Result Comment: NOTE ADA Guidelines Result HgbA1c Normal : less than 5.7 % Prediabetes : 5.7 % to 6.4 % Diabetes : > 6.4 % Use with caution in patients with abnormal hemoglobin variants as the half-life of red blood cells and in vivo glycation rates are affected. Performed By: #### C BCA, BMP, HA1C #### [facility] ([id number]) [address] [place] [address] URINALYSISon 09-19-2023 Bilirubin Ql (U) Negative Normal NEG [facility] Comment on above: Performed By: #### U A #### [facility] ([id number]) [address] [place] [address] BLOOD/HGB Negative Normal NEG [facility] Comment on above: Performed By: #### U A #### [facility] ([id number]) [address] [place] [address] Color (U) YELLOW Normal YELLOW [facility] Comment on above: Performed By: #### U A #### [facility] ([id number]) [address] [place] [address] Glucose Ql (U) Negative Normal NEG [facility] Comment on above: Performed By: #### U A #### [facility] ([id number]) [address] [place] [address] Hyaline casts LM Ql (Urine sed) 1 /lpf Normal 0-2 [facility] Comment on above: Performed By: #### U A #### [facility] ([id number]) [address] [place] [address] Ketones Ql (U) Negative Normal NEG [facility] Comment on above: Performed By: #### U A #### [facility] ([id number]) [address] [place] [address] Leukocyte esterase Test strip Ql (U) Large Abnormal NEG [facility] Comment on above: Performed By: #### U A #### [facility] ([id number]) [address] [place] [address] [address] [place] [address] MUCOUS PRESENT Abnormal NONE [facility] Comment on above: Performed By: #### U A #### [facility] ([id number]) [address] [place] [address] [address] [place] [address] Nitrite Ql (U) Negative Normal NEG [facility] Comment on above: Performed By: #### U A #### [facility] ([id number]) [address] [place] [address], [facility] [address] [place] [address] pH (U) 8.0 [pH] Normal 5.0-8.5 [facility] Comment on above: Performed By: #### U A #### [facility] ([id number]) [address] [place] [address] [address] [place] [address] Protein Ql (U) Trace Abnormal NEG [facility] Comment on above: Performed By: #### U A #### [facility] ([id number]) [address] [place] [address] [address] [place] [address] R.B.CELLS 4 /hpf Normal 0-5 [facility] Comment on above: Performed By: #### U A #### [facility] ([id number]) [address] [place] [address] [address] [place] [address] Specific gravity (U) [Rel density] 1.015 Normal 1.003-1.035 [facility] Comment on above: Performed By: #### U A #### [facility] ([id number]) [address] [place] [address] [address] [place] [address] SQUAMOUS EPITHELIUM 2 /hpf Normal 0-5 [facility] Comment on above: Performed By: #### U A #### [facility] ([id number]) [address] [place] [address] [address] [place] [address] TRANSITIONAL EPITH <1 High 0 [facility] Comment on above: Performed By: #### U A #### [facility] ([id number]) [address], [address] [address] TURBIDITY HAZY Abnormal CLEAR [facility] Comment on above: Performed By: #### U A #### [facility] ([id number]) [address] [address] Urobilinogen (U) [Mass/Vol] mg/dL Normal <1.1 [facility] Comment on above: Performed By: #### U A #### [facility] ([id number]) [address] [address] W.B.CELLS 60 /hpf High 0-5 [facility] Comment on above: Performed By: #### U A #### [facility] ([id number]) [address] [address] URINE CULTUREon 09-19-2023 Bacteria identified Cx Nom (U) CULTURE RESULTS MULTIPLE SPECIES PRESENT. PROBABLE COLLECTION CONTAMINATION. SUGGEST REPEAT SPECIMEN. Normal [facility] Comment on above: Performed By: #### 6 30-4 #### [facility] ([id number]) [address] [address] XR CHEST 2 VWSon 09-19-2023 XR CHEST 2 VWS XR CHEST 2 VWS XR CHEST 2 VWS INDICATION: Preop examination; Hypertension, unspecified type; Type 2 diabetes mellitus without complication, without long-term current use of insulin ([facility]); Urinary frequency; Former smoker; Osteoarthritis of left hip, unspecified osteoarthritis type. FINDINGS: Cardiac silhouette is normal in size. Trachea midline. No focal pulmonary consolidation. No pleural effusion. No pneumothorax. IMPRESSION: 1. Unremarkable chest radiographs. Finalized by Sincere Charles MD on 09/19/2023 11:47 PM Normal [facility] PTH INTACTon 09-01-2022 PTH, Intact 26 pg/mL Normal 15-65 [facility] Comment on above: Performed By: #### P THINT #### [facility] [address] [address] [address] Nunu Borges CBC AUTO DIFFon 08-31-2022 BASO # 0.1 103/ul Normal 0.0-0.1 [facility] Comment on above: Performed By: #### U TIFFANIE, MG, RENAL #### [facility] [address] [place] [address] Dr. Nunu Borges Basophils/100 WBC (Bld) 1.2 % Normal 0.2-2.0 [facility] Comment on above: Performed By: #### U TIFFANIE, MG, RENAL #### [facility] [address] [place] [address] Dr. Nunu Borges EO # 0.1 103/ul Normal 0.0-0.7 [facility] Comment on above: Performed By: #### U TIFFANIE, MG, RENAL #### [facility] [address] [place] [address] Dr. Nunu Borges Eosinophils/100 WBC (Bld) 2.2 % Normal 0.9-7.0 [facility] Comment on above: Performed By: #### U TIFFANIE, MG, RENAL #### [facility] [address] [place] [address] Dr. Nunu Borges Erythrocyte distribution width (RBC) [Ratio] 12.7 % Normal 11.0-15.0 [facility] Comment on above: Performed By: #### U TIFFANIE, MG, RENAL #### [facility] [address] [place] [address] Dr. Nunu Borges Hematocrit (Bld) [Volume fraction] 38.0 % Normal 36.0-48.0 [facility] Comment on above: Performed By: #### U TIFFANIE, MG, RENAL #### [facility] [address] [place] [address] Dr. Nunu Borges Hemoglobin (Bld) [Mass/Vol] 12.5 g/dL Normal 12.0-16.0 [facility] Comment on above: Performed By: #### U TIFFANIE, MG, RENAL #### [facility] [address] [address] [address] Nunu Borges IG # 0.02 10e3/ul Normal 0.00-0.03 [facility] Comment on above: Performed By: #### U TIFFANIE, MG, RENAL #### [facility] [address] [address] [address] Nunu Borges IG % 0.3 % Normal 0.0-0.5 [facility] Comment on above: Performed By: #### U TIFFANIE, MG, RENAL #### [facility] [address] [address] [address] Nunu Borges LYMPH # 1.8 103/ul Normal 1.2-3.8 [facility] Comment on above: Performed By: #### U TIFFANIE, MG, RENAL #### [facility] [address] [address] [address] Nunu Borges Lymphocytes/100 WBC (Bld) 30.7 % Normal 20.5-60.0 [facility] Comment on above: Performed By: #### U TIFFANIE, MG, RENAL #### [facility] [address] [address] [address] Nunu Borges MANUAL DIFF REQ NO Normal [facility] Comment on above: Performed By: #### U TIFFANIE, MG, RENAL #### [facility] [address] [address] [address] Nunu Borges MCH (RBC) [Entitic mass] 29.8 pg Normal 26.7-34.0 [facility] Comment on above: Performed By: #### U TIFFANIE, MG, RENAL #### [facility] [address] [address] [address] Nunu Borges MCHC (RBC) [Mass/Vol] 32.9 g/dL Normal 29.9-35.2 [facility] Comment on above: Performed By: #### U TIFFANIE, MG, RENAL #### [facility] [address] [address] [address] Nunu Borges MCV (RBC) [Entitic vol] 90.5 fL Normal 81.0-99.0 [facility] Comment on above: Performed By: #### U TIFFANIE, MG, RENAL #### [facility] [address] [place] [address] Dr. Nunu Borges MONO # 0.7 103/ul Normal 0.3-0.8 [facility] Comment on above: Performed By: #### U TIFFANIE, MG, RENAL #### [facility] [address] [place] [address] Dr. Nunu Borges Monocytes/100 WBC (Bld) 12.4 % Critically high 1.7-12.0 [facility] Comment on above: Performed By: #### U TIFFANIE, MG, RENAL #### [facility] [address] [place] [address] Dr. Nunu Borges NEUT # 3.1 103/ul Normal 1.4-6.5 [facility] Comment on above: Performed By: #### U TIFFANIE, MG, RENAL #### [facility] [address] [place] [address] Dr. Nunu Borges Neutrophils/100 WBC (Bld) 53.2 % Normal 43.0-75.0 [facility] Comment on above: Performed By: #### U TIFFANIE, MG, RENAL #### [facility] [address] [place] [address] Dr. Nunu Borges Platelet mean volume (Bld) [Entitic vol] 11.3 fL Normal 9.5-13.5 [facility] Comment on above: Performed By: #### U TIFFANIE, MG, RENAL #### [facility] [address] [place] [address] Dr. Nunu Borges PLT 284 103/ul Normal 150-450 [facility] Comment on above: Performed By: #### U TIFFANIE, MG, RENAL #### [facility] [address] [place] [address] Dr. Nunu Borges RBC 4.20 106/ul Normal 4.20-5.40 [facility] Comment on above: Performed By: #### U TIFFANIE, MG, RENAL #### [facility] [address] [address] [address] Nunu Borges WBC 5.9 103/ul Normal 4.0-11.0 [facility] Comment on above: Performed By: #### U TIFFANIE, MG, RENAL #### [facility] [address] [place] [address] Dr. Nunu Borges FERRITINon 08-31-2022 Ferritin [Mass/Vol] 66.0 ng/mL Normal 8.0-252.0 [facility] Comment on above: Performed By: #### U TIFFANIE, MG, RENAL #### [facility] [address] [address] [address] Nunu Borges GLYCOHEMOGLOBIN A1Con 2022 ADA RECOMMENDATION SEE BELOW Normal [facility] Comment on above: Result Comment: ADA RECOMMENDED LIMIT 4.0 - 6.0 ADA THERAPEUTIC TARGET < 7.0 ACTION SUGGESTED > 7.0 Performed By: #### U TIFFANIE, MG, RENAL #### [facility] [address] [address] [address] Nunu Borges Glucose [Mass/Vol] 134 mg/dL Normal [facility] Comment on above: Performed By: #### U TIFFANIE, MG, RENAL #### [facility] [address] [address] [address] Nunu Borges HbA1c (Bld) [Mass fraction] 6.3 % Critically high 4.5-6.2 [facility] Comment on above: Performed By: #### U TIFFANIE, MG, RENAL #### [facility] [address] [address] [address] Nunu Borges IRON AND TIBCon 08-31-2022 % SATURATION 25.9 % Normal [facility] Comment on above: Performed By: #### U TIFFANIE, MG, RENAL #### [facility] [address] [address] [address] Nunu Borges Iron [Mass/Vol] 90.0 ug/dL Normal 50.0-170.0 [facility] Comment on above: Performed By: #### U TIFFANIE, MG, RENAL #### [facility] [address] [address] [address] Nunu Borges TIBC DIRECT 348.0 ug/dL Normal 250.0-450.0 [facility] Comment on above: Performed By: #### U TIFFANIE, MG, RENAL #### [facility] [address] [place], [place] [address] Dr. Nunu Borges LIPID PROFILEon 08-31-2022 CHOL-HDL RATIO NORM SEE BELOW Normal [facility] Comment on above: Result Comment: 3.3 - 4.4 LOW RISK 4.4 - 7.1 AVERAGE RISK 7.1 - 11.0 MODERATE RISK >11.0 HIGH RISK Performed By: #### U TIFFANIE, MG, RENAL #### [facility] [address] [address] [address] Nunu Borges Cholesterol [Mass/Vol] 152 mg/dL Normal <=200 [facility] Comment on above: Performed By: #### U TIFFANIE, MG, RENAL #### [facility] [address] [address] [address] Nunu Borges Cholesterol in HDL [Mass/Vol] 77 mg/dL Critically high 40-60 [facility] Comment on above: Performed By: #### U TIFFANIE, MG, RENAL #### [facility] [address] [address] [address] Nunu Borges Cholesterol in LDL [Mass/Vol] 63.2 mg/dL Normal [facility] Comment on above: Performed By: #### U TIFFANIE, MG, RENAL #### [facility] [address] [id number] Nunu Borges Cholesterol.total/Ch olesterol in HDL [Mass ratio] 2.0 {ratio} Normal [facility] Comment on above: Performed By: #### U TIFFANIE, MG, RENAL #### [facility] [id number] Nunu Borges HDL NORMAL > or = 60 mg/dl - LOW CARDIOVASCULAR RISK <40 mg/dl - HIGH CARDIOVASCULAR RISK Normal [facility] Comment on above: Performed By: #### U TIFFANIE, MG, RENAL #### [facility] [address] [id number] Nunu Borges LDL CALC NORMAL SEE BELOW Normal [facility] Comment on above: Result Comment: <100 mg/dl OPTIMAL 100 - 129 mg/dl NEAR OR ABOVE OPTIMAL 130 - 159 mg/dl BORDERLINE HIGH 160 - 189 mg/dl HIGH >190 mg/dl VERY HIGH Performed By: #### U TIFFANIE, MG, RENAL #### [facility] [address] [address] [address] Nunu Borges Triglyceride [Mass/Vol] 59 mg/dL Normal <=150 [facility] Comment on above: Performed By: #### U TIFFANIE, MG, RENAL #### [facility] [address] [address] [address] Nunu Borges VLDL CALC 11.8 mg/dL Normal [facility] Comment on above: Performed By: #### U TIFFANIE, MG, RENAL #### [facility] [address] [address] [address] Nunu Borges LIVER PROFILEon 08-31-2022 Albumin/Globulin [Mass ratio] 1.1 {ratio} Normal [facility] Comment on above: Performed By: #### U TIFFANIE, MG, RENAL #### [facility] [address] [address] [address] Nunu Borges ALP [Catalytic activity/Vol] 129 U/L Critically high 46-116 [facility] Comment on above: Performed By: #### U TIFFANIE, MG, RENAL #### [facility] [address] [address] [address] Nunu Borges ALT [Catalytic activity/Vol] 32 U/L Normal 14-59 [facility] Comment on above: Performed By: #### U TIFFANIE, MG, RENAL #### [facility] [address] [address] [address] Nunu Borges AST [Catalytic activity/Vol] 20 U/L Normal 15-37 [facility] Comment on above: Performed By: #### U TIFFANIE, MG, RENAL #### [facility] [address] [address] [address] Nunu Borges BILI, CONJUGATED 0.2 mg/dL Normal 0.0-0.2 [facility] Comment on above: Performed By: #### U TIFFANIE, MG, RENAL #### [facility] [address] [place] [address] Dr. Nunu Borges Bilirubin [Mass/Vol] 0.8 mg/dL Normal 0.2-1.0 [facility] Comment on above: Performed By: #### U TIFFANIE, MG, RENAL #### [facility] [address] [place] [address] Dr. Nunu Borges Globulin (S) [Mass/Vol] 3.6 g/dL Normal [facility] Comment on above: Performed By: #### U TIFFANIE, MG, RENAL #### [facility] [address] [place] [address] Dr. Nunu Borges Protein [Mass/Vol] 7.5 g/dL Normal 6.4-8.2 [facility] Comment on above: Performed By: #### U TIFFANIE, MG, RENAL #### [facility] [address] [place] [address] Dr. Nunu Borges MAGNESIUMon 08-31-2022 Magnesium [Mass/Vol] 1.8 mg/dL Normal 1.8-2.4 [facility] Comment on above: Performed By: #### U TIFFANIE, MG, RENAL #### [facility] [address] [place] [address] Dr. Nunu Borges MICROALBUMIN, RAND URon 08-08 mALB <1.3 Normal <=30.0 [facility] Comment on above: Performed By: #### U TIFFANIE, MG, RENAL #### [facility] [address] [place] [address] Dr. Nunu Borges PROF CHEM 8 (BAS METB)on Anion gap [Moles/Vol] 14.3 mmol/L Normal [facility] Comment on above: Performed By: #### U TIFFANIE, MG, RENAL #### [facility] [address] [place] [address] Dr. Nunu Borges CO2 [Moles/Vol] 27.7 mmol/L Normal 21.0-32.0 [facility] Comment on above: Performed By: #### U TIFFANIE, MG, RENAL #### [facility] [address] [address] [address] Nunu Borges Glucose [Mass/Vol] 119 mg/dL Critically high 74-106 [facility] Comment on above: Performed By: #### U TIFFANIE, MG, RENAL #### [facility] [address] [address] [address] Nunu Borges Urea nitrogen/Creatinine [Mass ratio] 22.7 mg/mg Normal [facility] Comment on above: Performed By: #### U TIFFANIE, MG, RENAL #### [facility] [address] [address] [address] Nunu Borges RENAL FUNCTION PANELon 08-31 Albumin [Mass/Vol] 3.9 g/dL Normal 3.4-5.0 [facility] Comment on above: Performed By: #### U TIFFANIE, MG, RENAL #### [facility] [address] [address] [address] Nunu Borges Calcium [Mass/Vol] 9.7 mg/dL Normal 8.5-10.1 [facility] Comment on above: Performed By: #### U TIFFANIE, MG, RENAL #### [facility] [address] [address] [address] Nunu Borges Chloride [Moles/Vol] 99 mmol/L Normal 98-107 [facility] Comment on above: Performed By: #### U TIFFANIE, MG, RENAL #### [facility] [address] [address] [address] Nunu Borges CO2 [Moles/Vol] 28.0 mmol/L Normal 21.0-32.0 [facility] Comment on above: Performed By: #### U TIFFANIE, MG, RENAL #### [facility] [address] [address] [address] Nunu Borges Creatinine [Mass/Vol] 1.32 mg/dL Critically high 0.55-1.02 [facility] Comment on above: Performed By: #### U TIFFANIE, MG, RENAL #### [facility] [address] [address] [address] Nunu Borges EGFR-AF FILIPINO 49 mL/min/1.73m2 Critically low >=60 [facility] Comment on above: Performed By: #### U TIFFANIE, MG, RENAL #### [facility] [address] [place] [address] Dr. Nunu Borges EGFR-NON AF FILIPINO 40 mL/min/1.73m2 Critically low >=60 [facility] Comment on above: Performed By: #### U TIFFANIE, MG, RENAL #### [facility] [address] [place] [address] Dr. Nunu Borges Glucose [Mass/Vol] 118 mg/dL Critically high 74-106 [facility] Comment on above: Performed By: #### U TIFFANIE, MG, RENAL #### [facility] [address] [place] [address] Dr. Nunu Borges Phosphate [Mass/Vol] 3.6 mg/dL Normal 2.6-4.7 [facility] Comment on above: Performed By: #### U TIFFANIE, MG, RENAL #### [facility] [address] [place] [address] Dr. Nunu Borges Potassium [Moles/Vol] 4.0 mmol/L Normal 3.5-5.1 [facility] Comment on above: Performed By: #### U TIFFANIE, MG, RENAL #### [facility] [address] [place] [address] Dr. Nunu Borges Sodium [Moles/Vol] 137 mmol/L Normal 136-145 [facility] Comment on above: Performed By: #### U TIFFANIE, MG, RENAL #### [facility] [address] [place] [address] Dr. Nunu Borges Urea nitrogen [Mass/Vol] 30.0 mg/dL Critically high 7.0-18.0 [facility] Comment on above: Performed By: #### U TIFFANIE, MG, RENAL #### [facility] [address] [place] [address] Dr. Nunu Borges UA RANDOM W/MICROSCOPICon BACTERIA NONE SEEN Normal NONE SEEN [facility] Comment on above: Performed By: #### U AMIC #### [facility] [address] [place] [address] Dr. Nunu Borges Bilirubin Ql (U) Negative Normal NEGATIVE [facility] Comment on above: Performed By: #### U AMIC #### [facility] [address] [address] [address] Nunu Borges CAST NONE SEEN Normal NONE SEEN [facility] Comment on above: Performed By: #### U AMIC #### [facility] [address] [address] [address] Nunu Borges Clarity (U) CLEAR Normal CLEAR [facility] Comment on above: Performed By: #### U AMIC #### [facility] [address] [address] [address] Nunu Borges Color (U) LT. YELLOW Normal YELLOW [facility] Comment on above: Performed By: #### U AMIC #### [facility] [address] [place] [address] Dr. Nunu Borges Crystals LM Nom (Urine sed) NONE SEEN Normal NONE SEEN [facility] Comment on above: Performed By: #### U AMIC #### [facility] [address] [place] [address] Dr. Nunu Borges Epithelial cells LM Ql (Urine sed) FEW Abnormal NONE SEEN /RARE [facility] Comment on above: Performed By: #### U AMIC #### [facility] [address] [place] [address] Dr. Nunu Borges Glucose Ql (U) Negative Normal NEGATIVE [facility] Comment on above: Performed By: #### U AMIC #### [facility] [address] [place] [address] Dr. Nunu Borges Hemoglobin Ql (U) Negative Normal NEGATIVE [facility] Comment on above: Performed By: #### U AMIC #### [facility] [address] [place] [address] Dr. Nunu Borges Ketones Ql (U) Negative Normal NEGATIVE [facility] Comment on above: Performed By: #### U AMIC #### [facility] [address] [place] [address] Dr. Nunu Borges LEUKOCYTES TRACE Abnormal NEGATIVE [facility] Comment on above: Performed By: #### U AMIC #### [facility] [address] [address] [address] Nunu Borges MUCOUS NONE SEEN Normal NONE SEEN [facility] Comment on above: Performed By: #### U AMIC #### [facility] [address] [address] [address] Nunu Borges Nitrite Ql (U) Negative Normal NEGATIVE [facility] Comment on above: Performed By: #### U AMIC #### [facility] [address] [place] [address] Dr. Nunu Borges pH (U) 6.0 [pH] Normal 5-9 [facility] Comment on above: Performed By: #### U AMIC #### [facility] [address] [place] [address] Dr. Nunu Borges RBC NONE SEEN Abnormal 0-2 [facility] Comment on above: Performed By: #### U AMIC #### [facility] [address] [place] [address] Dr. Nunu Borges SPEC GRAVITY 1.015 Normal 1.005-<=1.025 [facility] Comment on above: Performed By: #### U AMIC #### [facility] [address] [place] [address] Dr. Nunu Borges UA PROTEIN Negative Normal NEGATIVE/ TRACE [facility] Comment on above: Performed By: #### U AMIC #### [facility] [address] [place] [address] Dr. Nunu Borges Urobilinogen Qn (U) 0.2 {Myriam'U}/dL Normal 0.2 - 1. 0 [facility] Comment on above: Performed By: #### U AMIC #### [facility] [address] [place] [address] Dr. Nunu Borges WBC 2-5 Abnormal NONE SEEN [facility] Comment on above: Performed By: #### U AMIC #### [facility] [address] [place] [address] Dr. Nunu Borges URIC ACID SERUMon 08-31-2022 Urate [Mass/Vol] 6.3 mg/dL Critically high 2.6-6.0 [facility] Comment on above: Performed By: #### U TIFFANIE, MG, RENAL #### [facility] [address] [place] [address] Dr. Nunu Borges URINE T PROTEIN CREAT RATIOo n 08-31-2022 Protein (U) [Mass/Vol] 13.3 mg/dL Critically high <=12.0 [facility] Comment on above: Performed By: #### U TIFFANIE, MG, RENAL #### [facility] [address] [place] [address] Dr. Nunu Borges UR PROT CREAT RAT 0.[address] [facility] Comment on above: Performed By: #### U TIFFANIE, MG, RENAL #### [facility] [address] [place] [address] Dr. Nunu Borges URINE CREAT 121.05 mg/dL Normal 20.00-300.00 [facility] Comment on above: Performed By: #### U TIFFANIE, MG, RENAL #### [facility] [address] [place] [address] Dr. Nunu Borges VITAMIN D 25 OHon 08-31-2022 VIT D 25-OH 79.7 ng/mL Normal [facility] Comment on above: Performed By: #### U TIFFANIE, MG, RENAL #### [facility] [address] [place] [address] Dr. Nunu Borges VIT D RANGES SEE BELOW Normal [facility] Comment on above: Result Comment: <20 ng/mL Vit D deficient 20 - <30 ng/mL Vit D insufficient 30 - 100 ng/mL Vit D sufficient >100 ng/mL Potential Toxicity Performed By: #### U TIFFANIE, MG, RENAL #### [facility] [address] [place] [address] Dr. Nunu Borges POINT OF CARE GLUCOSEon 04- Glucose [Mass/Vol] 132 mg/dL Critically high 74-106 [facility] Comment on above: Performed By: #### U AMIC #### [facility] [address] [place] [address] Dr. Nunu Borges PTH INTACTon 02-15-2022 PTH, Intact 36 pg/mL Normal 15-65 [facility] Comment on above: Performed By: #### U TIFFANIE, MG, RENAL #### [facility] [address] [place] [address] Dr. Nunu Borges UA RANDOM W/MICROSCOPICon BACTERIA TRACE Abnormal NONE SEEN [facility] Comment on above: Performed By: #### U AMIC #### [facility] [address] [place] [address] Dr. Nunu Borges Bilirubin Ql (U) Negative Normal NEGATIVE [facility] Comment on above: Performed By: #### U AMIC #### [facility] [address] [place] [address] Dr. Nunu Borges CAST NONE SEEN Normal NONE SEEN [facility] Comment on above: Performed By: #### U AMIC #### [facility] [address] [place] [address] Dr. Nunu Borges Clarity (U) CLEAR Normal CLEAR [facility] Comment on above: Performed By: #### U AMIC #### [facility] [address] [place] [address] Dr. Nunu Borges Color (U) LT. YELLOW Normal YELLOW [facility] Comment on above: Performed By: #### U AMIC #### [facility] [address] [place] [address] Dr. Nunu Borges Crystals LM Nom (Urine sed) NONE SEEN Normal NONE SEEN [facility] Comment on above: Performed By: #### U AMIC #### [facility] [address] [place] [address] Dr. Nunu Borges Epithelial cells LM Ql (Urine sed) FEW Abnormal NONE SEEN /RARE [facility] Comment on above: Performed By: #### U AMIC #### [facility] [address] [place] [address] Dr. Nunu Borges Glucose Ql (U) Negative Normal NEGATIVE [facility] Comment on above: Performed By: #### U AMIC #### [facility] [address] [place] [address] Dr. Nunu Borges Hemoglobin Ql (U) Negative Normal NEGATIVE [facility] Comment on above: Performed By: #### U AMIC #### [facility] [address] [address] [address] Nunu Borges Ketones Ql (U) Negative Normal NEGATIVE [facility] Comment on above: Performed By: #### U AMIC #### [facility] [address] [address] [address] Nunu Borges LEUKOCYTES SMALL Abnormal NEGATIVE [facility] Comment on above: Performed By: #### U AMIC #### [facility] [address] [address] [address] Nunu Borges MUCOUS NONE SEEN Normal NONE SEEN [facility] Comment on above: Performed By: #### U AMIC #### [facility] [address] [place] [address] Dr. Nunu Borges Nitrite Ql (U) Negative Normal NEGATIVE [facility] Comment on above: Performed By: #### U AMIC #### [facility] [address] [address] [address] Nunu Borges pH (U) 7.0 [pH] Normal 5-9 [facility] Comment on above: Performed By: #### U AMIC #### [facility] [address] [address] [address] Nunu Borges RBC NONE SEEN Abnormal 0-2 [facility] Comment on above: Performed By: #### U AMIC #### [facility] [address] [address] [address] Nunu Borges SPEC GRAVITY 1.010 Normal 1.005-<=1.025 [facility] Comment on above: Performed By: #### U AMIC #### [facility] [address] [address] [address] Nunu Borges UA PROTEIN Negative Normal NEGATIVE/ TRACE [facility] Comment on above: Performed By: #### U AMIC #### [facility] [address] [place] [address] Dr. Nunu Borges Urobilinogen Qn (U) 0.2 {Myriam'U}/dL Normal 0.2 - 1. 0 [facility] Comment on above: Performed By: #### U AMIC #### [facility] [address] [address] [address] Nunu Borges WBC 5-10 Abnormal NONE SEEN [facility] Comment on above: Performed By: #### U AMIC #### [facility] [address] [address] [address] Nunu Borges FERRITINon 02-13-2022 Ferritin [Mass/Vol] 72.0 ng/mL Normal 8.0-252.0 [facility] Comment on above: Performed By: #### U TIFFANIE, MG, RENAL #### [facility] [address] [address] [address] Nunu Borges GLYCOHEMOGLOBIN A1Con 2021 ADA RECOMMENDATION SEE BELOW Normal [facility] Comment on above: Result Comment: ADA RECOMMENDED LIMIT 4.0 - 6.0 ADA THERAPEUTIC TARGET < 7.0 ACTION SUGGESTED > 7.0 Performed By: #### A 1C #### [facility] [address] [place] [address] Dr. Nunu Borges Glucose [Mass/Vol] 143 mg/dL Normal [facility] Comment on above: Performed By: #### A 1C #### [facility] [address] [place] [address] Dr. Nunu Borges HbA1c (Bld) [Mass fraction] 6.6 % Critically high 4.5-6.2 [facility] Comment on above: Performed By: #### A 1C #### [facility] [address] [address] [address] Nunu Borges HEMOGRAM AND PLATELon 2021 Hematocrit (Bld) [Volume fraction] 36.1 % Normal 36.0-48.0 [facility] Comment on above: Performed By: #### U TIFFANIE, MG, RENAL #### [facility] [address] [place] [address] Dr. Nunu Borges Hemoglobin (Bld) [Mass/Vol] 11.5 g/dL Critically low 12.0-16.0 [facility] Comment on above: Performed By: #### U TIFFANIE, MG, RENAL #### [facility] [address] [address] [address] Nunu Borges MCH (RBC) [Entitic mass] 29.1 pg Normal 26.7-34.0 [facility] Comment on above: Performed By: #### U TIFFANIE, MG, RENAL #### [facility] [address] [place] [address] Dr. Nunu Borges MCHC (RBC) [Mass/Vol] 31.9 g/dL Normal 29.9-35.2 [facility] Comment on above: Performed By: #### U TIFFANIE, MG, RENAL #### [facility] [address] [place] [address] Dr. Nunu Borges MCV (RBC) [Entitic vol] 91.4 fL Normal 81.0-99.0 [facility] Comment on above: Performed By: #### U TIFFANIE, MG, RENAL #### [facility] [address] [place] [address] Dr. Nunu Borges PLT 348 103/ul Normal 150-450 [facility] Comment on above: Performed By: #### U TIFFANIE, MG, RENAL #### [facility] [address] [place] [address] Dr. Nunu Borges RBC 3.95 106/ul Critically low 4.20-5.40 [facility] Comment on above: Performed By: #### U TIFFANIE, MG, RENAL #### [facility] [address] [place] [address] Dr. Nunu Borges WBC 4.4 103/ul Normal 4.0-11.0 [facility] Comment on above: Performed By: #### U TIFFANIE, MG, RENAL #### [facility] [address] [place] [address] Dr. Nunu Borges IRON AND TIBCon 02-13-2022 % SATURATION 17.1 % Normal [facility] Comment on above: Performed By: #### U TIFFANIE, MG, RENAL #### [facility] [address] [place] [address] Dr. Nunu Borges Iron [Mass/Vol] 56.0 ug/dL Normal 50.0-170.0 [facility] Comment on above: Performed By: #### U TIFFANIE, MG, RENAL #### [facility] [address] [address] [address] Nunu Borges TIBC DIRECT 327.0 ug/dL Normal 250.0-450.0 [facility] Comment on above: Performed By: #### U TIFFANIE, MG, RENAL #### [facility] [address] [place] [address] Dr. Nunu Borges MAGNESIUMon 02-13-2022 Magnesium [Mass/Vol] 1.8 mg/dL Normal 1.8-2.4 [facility] Comment on above: Performed By: #### U TIFFANIE, MG, RENAL #### [facility] [address] [place] [address] Dr. Nunu Borges RENAL FUNCTION PANELon 02-13 Albumin [Mass/Vol] 3.7 g/dL Normal 3.4-5.0 [facility] Comment on above: Performed By: #### U TIFFANIE, MG, RENAL #### [facility] [address] [place] [address] Dr. Nunu Boregs Calcium [Mass/Vol] 9.4 mg/dL Normal 8.5-10.1 [facility] Comment on above: Performed By: #### U TIFFANIE, MG, RENAL #### [facility] [address] [place] [address] Dr. Nunu Borges Chloride [Moles/Vol] 100 mmol/L Normal 98-107 [facility] Comment on above: Performed By: #### U TIFFANIE, MG, RENAL #### [facility] [address] [place] [address] Dr. Nunu Borges CO2 [Moles/Vol] 30.0 mmol/L Normal 21.0-32.0 [facility] Comment on above: Performed By: #### U TIFFANIE, MG, RENAL #### [facility] [address] [place] [address] Dr. Nunu Borges Creatinine [Mass/Vol] 1.31 mg/dL Critically high 0.55-1.02 [facility] Comment on above: Performed By: #### U TIFFANIE, MG, RENAL #### [facility] [address] [place] [address] Dr. Nunu Borges EGFR-AF FILIPINO 49 mL/min/1.73m2 Critically low >=60 [facility] Comment on above: Performed By: #### U TIFFANIE, MG, RENAL #### [facility] [address] [place] [address] Dr. Nunu Borges EGFR-NON AF FILIPINO 40 mL/min/1.73m2 Critically low >=60 [facility] Comment on above: Performed By: #### U TIFFANIE, MG, RENAL #### [facility] [address] [place] [address] Dr. Nunu Borges Glucose [Mass/Vol] 98 mg/dL Normal 74-106 [facility] Comment on above: Performed By: #### U TIFFANIE, MG, RENAL #### [facility] [address] [place] [address] Dr. Nunu Borges Phosphate [Mass/Vol] 3.0 mg/dL Normal 2.6-4.7 [facility] Comment on above: Performed By: #### U TIFFANIE, MG, RENAL #### [facility] [address] [place] [address] Dr. Nunu Borges Potassium [Moles/Vol] 4.4 mmol/L Normal 3.5-5.1 [facility] Comment on above: Performed By: #### U TIFFANIE, MG, RENAL #### [facility] [address] [place] [address] Dr. Nunu Borges Sodium [Moles/Vol] 133 mmol/L Critically low 136-145 [facility] Comment on above: Performed By: #### U TIFFANIE, MG, RENAL #### [facility] [address] [place] [address] Dr. Nunu Borges Urea nitrogen [Mass/Vol] 23.0 mg/dL Critically high 7.0-18.0 [facility] Comment on above: Performed By: #### U TIFFANIE, MG, RENAL #### [facility] [address] [place] [address] Dr. uNnu Borges URIC ACID SERUMon 11-07-2022 Urate [Mass/Vol] 5.9 mg/dL Normal 2.6-6.0 [facility] Comment on above: Performed By: #### U TIFFANIE, MG, RENAL #### [facility] [address] [place] [address] Dr. Nunu Borges VITAMIN D 25 OHon 02-13-2022 VIT D 25-OH 70.3 ng/mL Normal [facility] Comment on above: Performed By: #### U TIFFANIE, MG, RENAL #### [facility] [address] [place] [address] Dr. Nunu Borges VIT D RANGES SEE BELOW Normal [facility] Comment on above: Result Comment: <20 ng/mL Vit D deficient 20 - <30 ng/mL Vit D insufficient 30 - 100 ng/mL Vit D sufficient >100 ng/mL Potential Toxicity Performed By: #### U TIFFANIE, MG, RENAL #### [facility] [address] [place] [address] Dr. Nunu Borges CBC AUTO DIFFon 01-27-2022 BASO # 0.0 103/ul Normal 0.0-0.1 [facility] Comment on above: Performed By: #### U TIFFANIE, MG, RENAL #### [facility] [address] [place] [address] Dr. Nunu Borges Basophils/100 WBC (Bld) 0.2 % Normal 0.2-2.0 [facility] Comment on above: Performed By: #### U TIFFANIE, MG, RENAL #### [facility] [address] [place] [address] Dr. Nunu Borges EO # 0.1 103/ul Normal 0.0-0.7 [facility] Comment on above: Performed By: #### U TIFFANIE, MG, RENAL #### [facility] [address] [place] [address] Dr. Nunu Borges Eosinophils/100 WBC (Bld) 0.9 % Normal 0.9-7.0 [facility] Comment on above: Performed By: #### U TIFFANIE, MG, RENAL #### [facility] [address] [place] [address] Dr. Nunu Borges Erythrocyte distribution width (RBC) [Ratio] 12.5 % Normal 11.0-15.0 [facility] Comment on above: Performed By: #### U TIFFANIE, MG, RENAL #### [facility] [address] [place] [address] Dr. Nunu Borges Hematocrit (Bld) [Volume fraction] 32.5 % Critically low 36.0-48.0 [facility] Comment on above: Performed By: #### U TIFFANIE, MG, RENAL #### [facility] [address] [place] [address] Dr. Nunu Borges Hemoglobin (Bld) [Mass/Vol] 10.9 g/dL Critically low 12.0-16.0 [facility] Comment on above: Performed By: #### U TIFFANIE, MG, RENAL #### [facility] [address] [place] [address] Dr. Nunu Borges IG # 0.14 10e3/ul Critically high 0.00-0.03 [facility] Comment on above: Performed By: #### U TIFFANIE, MG, RENAL #### [facility] [address] [place] [address] Dr. Nunu Borges IG % 1.5 % Critically high 0.0-0.5 [facility] Comment on above: Performed By: #### U TIFFANIE, MG, RENAL #### [facility] [address] [place] [address] Dr. Nunu Borges LYMPH # 1.5 103/ul Normal 1.2-3.8 [facility] Comment on above: Performed By: #### U TIFFANIE, MG, RENAL #### [facility] [address] [place] [address] Dr. Nunu Borges Lymphocytes/100 WBC (Bld) 15.5 % Critically low 20.5-60.0 [facility] Comment on above: Performed By: #### U TIFFANIE, MG, RENAL #### [facility] [address] [place] [address] Dr. Nunu Borges MANUAL DIFF REQ NO Normal [facility] Comment on above: Performed By: #### U TIFFANIE, MG, RENAL #### [facility] [address] [place] [address] Dr. Nunu Borges MCH (RBC) [Entitic mass] 29.6 pg Normal 26.7-34.0 [facility] Comment on above: Performed By: #### U TIFFANIE, MG, RENAL #### [facility] [address] [place] [address] Dr. Nunu Borges MCHC (RBC) [Mass/Vol] 33.5 g/dL Normal 29.9-35.2 [facility] Comment on above: Performed By: #### U TIFFANIE, MG, RENAL #### [facility] [address] [place] [address] Dr. Nunu Borges MCV (RBC) [Entitic vol] 88.3 fL Normal 81.0-99.0 [facility] Comment on above: Performed By: #### U TIFFANIE, MG, RENAL #### [facility] [address] [place] [address] Dr. Nunu Borges MONO # 1.2 103/ul Critically high 0.3-0.8 [facility] Comment on above: Performed By: #### U TIFFANIE, MG, RENAL #### [facility] [address] [place] [address] Dr. Nunu Borges Monocytes/100 WBC (Bld) 12.9 % Critically high 1.7-12.0 [facility] Comment on above: Performed By: #### U TIFFANIE, MG, RENAL #### [facility] [address] [place] [address] Dr. Nunu Borges NEUT # 6.5 103/ul Normal 1.4-6.5 [facility] Comment on above: Performed By: #### U TIFFANIE, MG, RENAL #### [facility] [address] [place] [address] Dr. Nunu Borges Neutrophils/100 WBC (Bld) 69.0 % Normal 43.0-75.0 [facility] Comment on above: Performed By: #### U TIFFANIE, MG, RENAL #### [facility] [address] [place] [address] Dr. Nunu Borges Platelet mean volume (Bld) [Entitic vol] 11.8 fL Normal 9.5-13.5 [facility] Comment on above: Performed By: #### U TIFFANIE, MG, RENAL #### [facility] [address] [address] [address] Nunu Borges PLT 239 103/ul Normal 150-450 [facility] Comment on above: Performed By: #### U TIFFANIE, MG, RENAL #### [facility] [address] [address] [address] Nunu Borges RBC 3.68 106/ul Critically low 4.20-5.40 [facility] Comment on above: Performed By: #### U TIFFANIE, MG, RENAL #### [facility] [address] [address] [address] Nunu Borges WBC 9.4 103/ul Normal 4.0-11.0 [facility] Comment on above: Performed By: #### U TIFFANIE, MG, RENAL #### [facility] [address] [address] [address] Nunu Borges POINT OF CARE GLUCOSEon 01-08 Glucose [Mass/Vol] 226 mg/dL Critically high 74-106 [facility] Comment on above: Performed By: #### U TIFFANIE, MG, RENAL #### [facility] [address] [place] [address] Dr. Nunu Borges PROF CHEM 8 (BAS METB)on Anion gap [Moles/Vol] 10.5 mmol/L Normal [facility] Comment on above: Performed By: #### U TIFFANIE, MG, RENAL #### [facility] [address] [address] [address] Nunu Borges Calcium [Mass/Vol] 8.2 mg/dL Critically low 8.5-10.1 [facility] Comment on above: Performed By: #### U TIFFANIE, MG, RENAL #### [facility] [address] [address] [address] Nunu Borges Chloride [Moles/Vol] 103 mmol/L Normal 98-107 [facility] Comment on above: Performed By: #### U TIFFANIE, MG, RENAL #### [facility] [address] [address] [address] Nunu Borges CO2 [Moles/Vol] 26.0 mmol/L Normal 21.0-32.0 [facility] Comment on above: Performed By: #### U TIFFANIE, MG, RENAL #### [facility] [address] [address] [address] Nunu Borges Creatinine [Mass/Vol] 1.04 mg/dL Critically high 0.55-1.02 [facility] Comment on above: Performed By: #### U TIFFANIE, MG, RENAL #### [facility] [address] [address] [address] Nunu Borges EGFR-AF FILIPINO >60 Normal >=60 [facility] Comment on above: Performed By: #### U TIFFANIE, MG, RENAL #### [facility] [address] [address] [address] Nunu Borges EGFR-NON AF FILIPINO 53 mL/min/1.73m2 Critically low >=60 [facility] Comment on above: Performed By: #### U TIFFANIE, MG, RENAL #### [facility] [address] [address] [address] Nunu Borges Glucose [Mass/Vol] 91 mg/dL Normal 74-106 [facility] Comment on above: Performed By: #### U TIFFANIE, MG, RENAL #### [facility] [address] [address] [address] Nunu Borges Potassium [Moles/Vol] 3.5 mmol/L Normal 3.5-5.1 [facility] Comment on above: Performed By: #### U TIFFANIE, MG, RENAL #### [facility] [address] [address] [address] Nunu Borges Sodium [Moles/Vol] 136 mmol/L Normal 136-145 [facility] Comment on above: Performed By: #### U TIFFANIE, MG, RENAL #### [facility] [address] [address] [address] Nunu Borges Urea nitrogen [Mass/Vol] 32.0 mg/dL Critically high 7.0-18.0 [facility] Comment on above: Performed By: #### U TIFFANIE, MG, RENAL #### [facility] [address] [place] [address] Dr. Nunu Borges Urea nitrogen/Creatinine [Mass ratio] 30.8 mg/mg Normal [facility] Comment on above: Performed By: #### U TIFFANIE, MG, RENAL #### [facility] [address] [place] [address] Dr. Nunu Borges CBC AUTO DIFFon 01-26-2022 BASO # 0.0 103/ul Normal 0.0-0.1 [facility] Comment on above: Performed By: #### C BC #### [facility] [address] [place] [address] Dr. Nunu Borges Basophils/100 WBC (Bld) 0.1 % Critically low 0.2-2.0 [facility] Comment on above: Performed By: #### C BC #### [facility] [address] [place] [address] Dr. Nunu Borges EO # 0.1 103/ul Normal 0.0-0.7 [facility] Comment on above: Performed By: #### C BC #### [facility] [address] [place] [address] Dr. Nunu Borges Eosinophils/100 WBC (Bld) 0.4 % Critically low 0.9-7.0 [facility] Comment on above: Performed By: #### C BC #### [facility] [address] [place] [address] Dr. Nunu Borges Erythrocyte distribution width (RBC) [Ratio] 12.2 % Normal 11.0-15.0 [facility] Comment on above: Performed By: #### C BC #### [facility] [address] [place] [address] Dr. Nunu Borges Hematocrit (Bld) [Volume fraction] 36.7 % Normal 36.0-48.0 [facility] Comment on above: Performed By: #### C BC #### [facility] [address] [place] [address] Dr. Nunu Borges Hemoglobin (Bld) [Mass/Vol] 12.1 g/dL Normal 12.0-16.0 [facility] Comment on above: Performed By: #### C BC #### [facility] [address] [place] [address] Dr. Nunu Borges IG # 0.42 10e3/ul Critically high 0.00-0.03 [facility] Comment on above: Performed By: #### C BC #### [facility] [address] [place] [address] Dr. Nunu Borges IG % 2.4 % Critically high 0.0-0.5 [facility] Comment on above: Performed By: #### C BC #### [facility] [address] [place] [address] Dr. Nunu Borges LYMPH # 0.8 103/ul Critically low 1.2-3.8 [facility] Comment on above: Performed By: #### C BC #### [facility] [address] [place] [address] Dr. Nunu Borges Lymphocytes/100 WBC (Bld) 4.5 % Critically low 20.5-60.0 [facility] Comment on above: Performed By: #### C BC #### [facility] [address] [place] [address] Dr. Nunu Borges MANUAL DIFF REQ NO Normal [facility] Comment on above: Performed By: #### C BC #### [facility] [address] [place] [address] Dr. Nunu Borges MCH (RBC) [Entitic mass] 29.2 pg Normal 26.7-34.0 [facility] Comment on above: Performed By: #### C BC #### [facility] [address] [place] [address] Dr. Nunu Borges MCHC (RBC) [Mass/Vol] 33.0 g/dL Normal 29.9-35.2 [facility] Comment on above: Performed By: #### C BC #### [facility] [address] [place] [address] Dr. Nunu Borges MCV (RBC) [Entitic vol] 88.6 fL Normal 81.0-99.0 [facility] Comment on above: Performed By: #### C BC #### [facility] [address] [place] [address] Dr. Nunu Borges MONO # 1.4 103/ul Critically high 0.3-0.8 [facility] Comment on above: Performed By: #### C BC #### [facility] [address] [place] [address] Dr. Nunu Borges Monocytes/100 WBC (Bld) 7.6 % Normal 1.7-12.0 [facility] Comment on above: Performed By: #### C BC #### [facility] [address] [place] [address] Dr. Nunu Borges NEUT # 15.0 103/ul Critically high 1.4-6.5 [facility] Comment on above: Performed By: #### C BC #### [facility] [address] [place] [address] Dr. Nunu Borges Neutrophils/100 WBC (Bld) 85.0 % Critically high 43.0-75.0 [facility] Comment on above: Performed By: #### C BC #### [facility] [address] [place] [address] Dr. Nunu Borges Platelet mean volume (Bld) [Entitic vol] 11.5 fL Normal 9.5-13.5 [facility] Comment on above: Performed By: #### C BC #### [facility] [address] [place] [address] Dr. Nunu Borges PLT 277 103/ul Normal 150-450 [facility] Comment on above: Performed By: #### C BC #### [facility] [address] [place], [place] [id number] Dr. Nunu Borges RBC 4.14 106/ul Critically low 4.20-5.40 [facility] Comment on above: Performed By: #### C BC #### [facility] [address] [place] [address] Dr. Nunu Borges WBC 17.7 103/ul Critically high 4.0-11.0 [facility] Comment on above: Performed By: #### C BC #### [facility] [address] [address] [address] Nunu Borges CULTURE BLOODon 01-26-2022 Microscopic examination of blood, culture Culture Observations: NO GROWTH AT 5 DAYS. Normal [facility] Comment on above: Performed By: #### U AMIC #### [facility] [address] [place] [address] Dr. Nunu Borges Microscopic examination of blood, culture Culture Observations: NO GROWTH AT 5 DAYS. Normal [facility] Comment on above: Performed By: #### U AMIC #### [facility] [address] [place] [address] Dr. Nunu Borges CULTURE URINEon 01-26-2022 CULTURE URINE Culture Observations: LIGHT GROWTH OF MIXED GENITAL GABRIELLE. NO POTENTIAL PATHOGENS SEEN. Normal [facility] Comment on above: Performed By: #### U AMIC #### [facility] [address] [place] [address] Dr. Nunu Borges Covid-19 PCR ([facility])on 01-08 SARS-CoV-2 (COVID-19) RNA GREG+probe Ql (Unsp spec) Detected Critically abnormal NOT DETECTED [facility] Comment on above: Result Comment: This test is not yet approved or cleared by the [place] FDA. When there are no FDA-approved or cleared tests available, and other criteria are met, FDA can make tests available under an emergency access mechanism called an Emergency Use Authorization (EUA). The EUA for this test is supported by the [employer] and Human Service's declaration that [...] used). Performed By: #### C VDTBH #### [facility] [address] [place] [address] Dr. Nunu Borges ER URINE PROFILEon 10-20-202 2 Bilirubin Ql (U) Negative Normal NEGATIVE [facility] Comment on above: Performed By: #### U AMIC #### [facility] [address] [address] [address] Nunu Borges Clarity (U) CLEAR Normal CLEAR [facility] Comment on above: Performed By: #### U AMIC #### [facility] [address] [address] [address] Nunu Borges Color (U) LT. YELLOW Normal YELLOW [facility] Comment on above: Performed By: #### U AMIC #### [facility] [address] [address] [address] Nunu Borges ERUALESSIA A micrscopic examination will be performed if indicated. Normal [facility] Comment on above: Performed By: #### U AMIC #### [facility] [address] [place] [address] Dr. Nunu Borges Glucose Ql (U) Negative Normal NEGATIVE [facility] Comment on above: Performed By: #### U AMIC #### [facility] [address] [place] [address] Dr. Nunu Borges Hemoglobin Ql (U) Negative Normal NEGATIVE [facility] Comment on above: Performed By: #### U AMIC #### [facility] [address] [address] [address] Nunu Borges Ketones Ql (U) Negative Normal NEGATIVE [facility] Comment on above: Performed By: #### U AMIC #### [facility] [address] [address] [address] Nunu Borges LEUKOCYTES MODERATE Abnormal NEGATIVE [facility] Comment on above: Performed By: #### U AMIC #### [facility] [address] [address] [address] Nunu Borges Nitrite Ql (U) Negative Normal NEGATIVE [facility] Comment on above: Performed By: #### U AMIC #### [facility] [address] [place] [address] Dr. Nunu Borges pH (U) 6.0 [pH] Normal 5-9 [facility] Comment on above: Performed By: #### U AMIC #### [facility] [address] [address] [address] Nunu Borges SPEC GRAVITY 1.010 Normal 1.005-<=1.025 [facility] Comment on above: Performed By: #### U AMIC #### [facility] [address] [address] [address] Nunu Borges UA PROTEIN Negative Normal NEGATIVE/ TRACE [facility] Comment on above: Performed By: #### U AMIC #### [facility] [address] [address] [address] Nunu Borges UR MICRO IND INDICATED Normal [facility] Comment on above: Performed By: #### U AMIC #### [facility] [address] [address] [address] Nunu Borges Urobilinogen Qn (U) 0.2 {Myriam'U}/dL Normal 0.2 - 1. 0 [facility] Comment on above: Performed By: #### U AMIC #### [facility] [address] [place] [address] Dr. Nunu Borges POINT OF CARE GLUCOSEon 01-08 Glucose [Mass/Vol] 262 mg/dL Critically high 74-106 [facility] Comment on above: Performed By: #### U TIFFANIE, MG, RENAL #### [facility] [address] [place] [address] Dr. Nunu Borges PROF CHEM 8 (BAS METB)on Anion gap [Moles/Vol] 18.7 mmol/L Normal [facility] Comment on above: Performed By: #### U AMIC #### [facility] [address] [place] [address] Dr. Nunu Borges Calcium [Mass/Vol] 9.0 mg/dL Normal 8.5-10.1 [facility] Comment on above: Performed By: #### U AMIC #### [facility] [address] [place] [address] Dr. Nunu Borges Chloride [Moles/Vol] 95 mmol/L Critically low 98-107 [facility] Comment on above: Performed By: #### U AMIC #### [facility] [address] [address] [address] Nunu Borges CO2 [Moles/Vol] 20.6 mmol/L Critically low 21.0-32.0 [facility] Comment on above: Performed By: #### U AMIC #### [facility] [address] [address] [address] Nunu Borges Creatinine [Mass/Vol] 1.79 mg/dL Critically high 0.55-1.02 [facility] Comment on above: Performed By: #### U AMIC #### [facility] [address] [address] [address] Nunu Borges EGFR-AF FILIPINO 21 mL/min/1.73m2 Critically low >=60 [facility] Comment on above: Performed By: #### U AMIC #### [facility] [address] [address] [address] Nunu Borges EGFR-NON AF FILIPINO 18 mL/min/1.73m2 Critically low >=60 [facility] Comment on above: Performed By: #### U AMIC #### [facility] [address] [address] [address] Nunu Borges Glucose [Mass/Vol] 261 mg/dL Critically high 74-106 [facility] Comment on above: Performed By: #### U AMIC #### [facility] [address] [address] [address] Nunu Borges Potassium [Moles/Vol] 4.3 mmol/L Normal 3.5-5.1 [facility] Comment on above: Performed By: #### U AMIC #### [facility] [address] [address] [address] Nunu Borges Sodium [Moles/Vol] 130 mmol/L Critically low 136-145 [facility] Comment on above: Performed By: #### U AMIC #### [facility] [address] [address] [address] Nunu Borges Urea nitrogen [Mass/Vol] 54.0 mg/dL Critically high 7.0-18.0 [facility] Comment on above: Performed By: #### U AMIC #### [facility] [address] [place] [address] Dr. Nunu Borges Urea nitrogen/Creatinine [Mass ratio] 30.2 mg/mg Normal [facility] Comment on above: Performed By: #### U AMIC #### [facility] [address] [place] [address] Dr. Nunu Borges URINE MICROSCOPIC ONLYon BACTERIA TRACE Abnormal NONE SEEN [facility] Comment on above: Performed By: #### U AMIC #### [facility] [address] [place] [address] Dr. Nunu Borges Bacteria identified Cx Nom (U) INDICATED Normal [facility] Comment on above: Performed By: #### U AMIC #### [facility] [address] [place] [address] Dr. Nunu Borges CAST SEEN Abnormal NONE SEEN [facility] Comment on above: Performed By: #### U AMIC #### [facility] [address] [place] [address] Dr. Nunu Borges Crystals LM Nom (Urine sed) NONE SEEN Normal NONE SEEN [facility] Comment on above: Performed By: #### U AMIC #### [facility] [address] [place] [address] Dr. Nunu Borges Epithelial cells LM Ql (Urine sed) RARE Normal NONE SEEN /RARE [facility] Comment on above: Performed By: #### U AMIC #### [facility] [address] [place] [address] Dr. Nunu Borges HYALINE CAST RARE Normal [facility] Comment on above: Performed By: #### U AMIC #### [facility] [address] [place] [address] Dr. Nunu Borges MUCOUS NONE SEEN Normal NONE SEEN [facility] Comment on above: Performed By: #### U AMIC #### [facility] [address] [place] [address] Dr. Nunu Borges RBC 0-2 Normal 0-2 [facility] Comment on above: Performed By: #### U AMIC #### [facility] [address] [address] [address] Nnuu Borges WBC 2-5 Abnormal NONE SEEN [facility] Comment on above: Performed By: #### U AMIC #### [facility] [address] [address] [address] Nunu Borges Covid-19 PCR ([facility])on 01-07 SARS-CoV-2 (COVID-19) RNA GREG+probe Ql (Unsp spec) Detected Critically abnormal NOT DETECTED [facility] Comment on above: Result Comment: This test is not yet approved or cleared by the [place] FDA. When there are no FDA-approved or cleared tests available, and other criteria are met, FDA can make tests available under an emergency access mechanism called an Emergency Use Authorization (EUA). The EUA for this test is supported by the [employer] and Human Service's declaration that [...] for this test is supported by the [employer] Health and Human Service's (HHS's) declaration [...] used). Performed By: #### C VDTBH #### [facility] [address] [address] [address] Nunu Borges MG MAMM SCREEN 3D RODERICK CADon 01-09-2022 MG MAMM SCREEN 3D RODERICK CAD Patient: LONDON COURTNEY Exam Date: 01/09/2022 : 1955 Gender:F Ordering : DR MARIBEL ALVAREZ . Admission #: [id number] Family : Order #: [id number] CLICK HERE TO VIEW EXAM RADIOLOGY REPORT [...] Treatments None Family Cancers None LOCATION: [facility] BREAST COMPOSITION: Almost entirely fatty. FINDINGS: [...] MD on 01/09/2022 at 12:50 Normal [facility] Cytologyon 07-20-2020 Cytology (NOTE) INTERPRETATION Cervical material, (ThinPrep vial, Imaging-assisted review): Specimen Adequacy: Satisfactory for evaluation. - Endocervical/transfo rmation zone component present. Descriptive Diagnosis: Negative for intraepithelial lesion or malignancy. 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 Rec: [id number] Path Number: [id number] [facility] ANATOMIC PATHOLOGY [address] [place] [address]. [place], [place] [address] Normal [facility] Comment on above: Performed By: #### P PPVP #### [facility] [address] [id number] Plumbing And Heating Mechanic: Jeremiah Acosta MD Main OR Intraoperative Recor handy 11-06-2017 Main OR Intraoperative Record IntraOp Document Type FTURO Summary Primary Physician: Juan Delarosa Jr., MD Finalized Date/Time: 11/06/17 12:28:35 Pt. Name: CHATOJBLONDON/Sex: 1955 Female Med Rec #: [id number] Physician: Juan Delarosa Jr., MD Financial #: [id number] Pt. Type: O Room/Bed: / Admit/Disch: 10/11/17 12:38:00 - 10/11/17 23:59:00 Institution: Case Times FTURO Entry 1 Patient Times In Room 10/11/17 13:16:00 Out Room 10/11/17 13:22:00 Procedure Times Start 10/11/17 13:18:00 Stop 10/11/17 13:21:00 Anesthesia Times Last Modified By: KIET Simons RN, Lou Ann 10/11/17 13:21:50 Case Attendance FTURO Entry 1 Entry 2 Entry 3 Case Attendee SAAD Simons RNORKeerthi CST, Juan Mccann Jr., MD Role Performed Investment Director - Primary Scrub - Primary Surgeon - Primary Time In 10/11/17 13:16:00 10/11/17 13:16:00 10/11/17 13:18:00 Time Out 10/11/17 13:22:00 10/11/17 13:22:00 10/11/17 13:22:00 Procedure CYSTOSCOPY LOCAL(.) CYSTOSCOPY LOCAL(.) CYSTOSCOPY LOCAL(.) Comments Last Modified By: KIET Simons RN, Lou Ann Blank RN, CNOR, Lou Ann Blank RN, CNOR, Lou Ann 10/11/17 13:21:53 10/11/17 [...] KIET Simons RN, Lou Applicable) 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 Yes Allergies Reviewed Self/Patient With Body Position Frog Legged Prep Area PERINIUM Prep Agents Betadine Solution Skin. Condition Intact, [place], Warm, and Dry Additional None Specimens Collected [...] Simons RN, Lou Ann 11/06/17 12:28 Normal [facility] Main OR Preoperative Recordo n 11-06-2017 Main OR Preoperative Record Holding Area Document Type FTURO Summary Primary Physician: Juan Delarosa Jr., MD Finalized Date/Time: 11/06/17 12:28:41 Pt. Name: LONDON COURTNEY Candy/Sex: 1955 Female Med Rec #: [id number] Physician: Juan Delarosa Jr., MD Financial #: [id number] Pt. Type: O Room/Bed: / Admit/Disch: 10/11/17 [...] of Pain: No Comment: Skin Integrity Intact, [place], Warm, & Dry Vitals - EU Blood Pressure 98/55 Pulse 76 bpm Respirations 18 br/min SPO2 RN Reviewed Yes Last Modified By: KIET Simons RN, Lou Ann 10/11/17 13:00:54 Finalized By: KIET Simons RN, Lou Ann Document Signatures Signed By: KIET Simons RN, Lou Ann 10/11/17 13:00 Karen Rutherford LPN 10/11/17 12:58 KIET Simons RN, Lou Ann 11/06/17 12:28 Normal [facility] Coding Summary.on 10-19-2017 Coding Summary. CODING DATE: 10/19/2017 FINAL [facility] STATUS: Home (Routine DC) PAYOR: Commercial [...] disease N18.9 Chronic kidney disease, unspecified Z79.82 snf (current) use of aspirin Z87.891 Personal history of nicotine dependence PYMT PROC APC STAT DESCRIPTION DOCTOR NAME DATE NOTE: The code number assigned matches the documented diagnosis and / or procedure in the patient's chart. However, the narrative phrase printed from the coding software may appear abbreviated, or result in slightly different terminology. Coded By: Ellie Saldaña Date Saved: 10/19/2017 08:52 am Normal [facility] Operative Reporton 8 Operative Report Patient: LONDON [...] urine. The Urethra was dilated to: 30 Turkmen w/ sounds. Devices Implanted: None. Removal: Cystoscope [...] negative. This completes her hematuria workup.. Normal [facility] Comment on above: Result Comment: Elec tronically Signed By: Washington Bennett MD, Juan King.br\Date and Time Signed: 10/11/17 13:26 EDT Vital Signs Date Time Vital Sign Value Performing Clinician Facility 04-05-2023 10:00-0500 Body height 154.94 cm Ghislaine Ada Other [facility] Other 04-05-2023 10:00-0500 Body mass index (BMI) [Ratio] 29.85 kg/m2 [facility] Ada Other [facility] Other 04-05-2023 10:00-0500 Body temperature 97.2 [degF] [facility] Ada Other [facility] Other 04-05-2023 10:00-0500 Body weight 71.67 kg Ghislaine Ada Other [facility] Other 04-05-2023 10:00-0500 Diastolic blood pressure 60 mm[Hg] Ghislaine Ada Other [facility] Other 04-05-2023 10:00-0500 Respiratory rate 18 /min Ghislaine Ada Other [facility] Other 04-05-2023 10:00-0500 SaO2% (BldA) [Mass fraction] 98 % [facility]hislaine Ada Other [facility] Other 04-05-2023 10:00-0500 Systolic blood pressure 124 mm[Hg] Ghislaine Ada Other [facility] Other 09-07-2022 14:00-0400 Body height 154.94 cm Ghislaine Ada Other [facility] Other 09-07-2022 14:00-0400 Body mass index (BMI) [Ratio] 29.47 kg/m2 [facility] Ada Other [facility] Other 09-07-2022 14:00-0400 Body temperature 97.3 [degF] [facility] Ada Other [facility] Other 09-07-2022 14:00-0400 Body weight 70.76 kg Ghislaine Ada Other [facility] Other 09-07-2022 14:00-0400 Diastolic blood pressure 70 mm[Hg] Ghislaine Ada Other [facility] Other 09-07-2022 14:00-0400 Respiratory rate 18 /min Ghislaine Ada Other [facility] Other 09-07-2022 14:00-0400 SaO2% (BldA) [Mass fraction] 97 % [facility]hislaine Ada Other [facility] Other 09-07-2022 14:00-0400 Systolic blood pressure 110 mm[Hg] Ghislaine Ada Other [facility] Other 03-23-2022 11:20-0500 Body height 154.94 cm Ghislaine Ada Other [facility] Other 03-23-2022 11:20-0500 Body mass index (BMI) [Ratio] 28.75 kg/m2 [facility]laine Ada Other [facility] Other 03-23-2022 11:20-0500 Body temperature 96.2 [degF] [facility]laine Ada Other [facility] Other 03-23-2022 11:20-0500 Body weight 69.04 kg Ghislaine Ada Other [facility] Other 03-23-2022 11:20-0500 Diastolic blood pressure 80 mm[Hg] Ghislaine Ada Other [facility] Other 03-23-2022 11:20-0500 Respiratory rate 18 /min Ghislaine Ada Other [facility] Other 03-23-2022 11:20-0500 SaO2% (BldA) [Mass fraction] 96 % [facility]hislaine Ada Other [facility] Other 03-23-2022 11:20-0500 Systolic blood pressure 122 mm[Hg] Ghislaine Ada Other [facility] Other 09-01-2021 11:00-0400 Body height 154.94 cm Ghislaine Ada Other [facility] Other 09-01-2021 11:00-0400 Body mass index (BMI) [Ratio] 31.29 kg/m2 [facility]hislaine Ada Other [facility] Other 09-01-2021 11:00-0400 Body temperature 96.8 [degF] [facility]hislaine Ada Other [facility] Other 09-01-2021 11:00-0400 Body weight 75.12 kg Ghislaine Ada Other [facility] Other 09-01-2021 11:00-0400 Diastolic blood pressure 74 mm[Hg] Ghislaine Ada Other [facility] Other 09-01-2021 11:00-0400 Respiratory rate 18 /min Ghislaine Ada Other [facility] Other 09-01-2021 11:00-0400 SaO2% (BldA) [Mass fraction] 97 % Ghislaine Ada Other [facility] Other 09-01-2021 11:00-0400 Systolic blood pressure 130 mm[Hg] Ghislaine Ada Other [facility] Other 02-10-2021 10:20-0400 Body height 154.94 cm Ghislaine Ada Other [facility] Other 02-10-2021 10:20-0400 Body mass index (BMI) [Ratio] 30.83 kg/m2 Ghislaine Ada Other [facility] Other 02-10-2021 10:20-0400 Body temperature 96 [degF] Ghislaine Ada Other [facility] Other 02-10-2021 10:20-0400 Body weight 74.03 kg Ghislaine Ada Other [facility] Other 02-10-2021 10:20-0400 Diastolic blood pressure 74 mm[Hg] Ghislaine Ada Other [facility] Other 02-10-2021 10:20-0400 Respiratory rate 18 /min Ghislaine Ada Other [facility] Other 02-10-2021 10:20-0400 SaO2% (BldA) [Mass fraction] 94 % Ghislaine Ada Other [facility] Other 02-10-2021 10:20-0400 Systolic blood pressure 110 mm[Hg] Ghislaine Ada Other [facility] Other Encounters Encounter Date Encounter Type Care Provider Facility Start: 10-09-2023 End: 10-09-2023 ambulatory MARIBEL ALVAREZ [facility] Start: 10-01-2023 End: 10-01-2023 ambulatory SHARONA E RAMBASEK Not Available Start: 09-26-2023 End: 09-26-2023 ambulatory SHARONA E RAMBASEK Not Available Start: 09-25-2023 End: 09-25-2023 ambulatory MARIBEL ALVAREZ Not Available Start: 09-24-2023 End: 09-24-2023 ambulatory SHARONA E RAMBASEK Not Available Start: 09-20-2023 End: 09-20-2023 ambulatory ARIANNA GUY Not Available Start: 09-19-2023 End: 09-19-2023 ambulatory SAGE AMOS Not Available Start: 09-19-2023 End: 09-19-2023 ambulatory BROCK FISHER [facility] Start: 09-19-2023 Encounter for other preprocedural examination BROCK FISHER JR [facility] Start: 08-01-2023 End: 08-01-2023 ambulatory BROCK BENNETT Not Available Start: 07-23-2023 End: 07-23-2023 ambulatory SAGE Rebeca AMOS Not Available Start: 06-19-2023 End: 06-19-2023 ambulatory ANAISMOHIT MELTON Not Available Start: 06-12-2023 End: 06-12-2023 ambulatory MARIBEL ALVAREZ Not Available Start: 04-05-2023 End: 04-05-2023 ambulatory Ghislaine Ada Other [facility] Other Start: 04-05-2023 Office outpatient vi sit 25 minutes Ghislaine Ada [facility] Start: 09-07-2022 End: 09-07-2022 ambulatory Ghislaine Ada Other [facility] Other Start: 09-07-2022 Office outpatient vi sit 15 minutes Ghislaine Ada [facility] Start: 08-31-2022 End: 09-01-[address] MARIBEL ALVAREZ Facility:[facility] Start: 08-18-2022 End: 08-19-[address] MARIBEL ALVAREZ Facility:[facility] Start: 07-26-2022 End: 07-26-[address] MARIBEL ALVAREZ Facility:[facility] Start: 07-18-2022 End: 07-18-2022 ambulatory Ghislaine Ada Other [facility] Other Start: 07-18-2022 Telephone encounter Ghislaine Ada [facility] Start: 03-23-2022 End: 03-23-2022 ambulatory Ghislaine Ada Other [facility] Other Start: 03-23-2022 Office outpatient vi sit 25 minutes Ghislaine Ada [facility] Start: 02-14-2022 End: 02-14-[address] MARIBEL ALVAREZ Facility:[facility] Start: 02-13-2022 End: 02-14-[address] MARIBEL A NADERER Facility:[facility] Start: 01-26-2022 End: 01-27-[address] MARIBEL ALVAREZ Facility:[facility] Start: 01-16-2022 End: 01-16-[address] MARIBEL ALVAREZ Facility:[facility] Start: 01-09-2022 End: 01-10-[address] MARIBEL ALVAREZ Facility:[facility] Start: 10-18-2021 End: 10-19-[address] MARIBEL ALVAREZ Facility:[facility] Start: 09-13-2021 End: 09-13-2021 ambulatory Ghislaine Ada Other [facility] Other Start: 09-13-2021 Telephone encounter Ghislaine Ada [facility] Start: 09-01-2021 End: 09-01-2021 ambulatory Ghislaine Ada Other [facility] Other Start: 09-01-2021 Office outpatient vi sit 25 minutes Ghislaine Ada [facility] Start: 09-01-2021 Telephone encounter Ghislaine Ada [facility] Start: 08-22-2021 End: 08-22-2021 ambulatory Ghislaine Ada Other [facility] Other Start: 08-22-2021 Telephone encounter Ghislaine Ada [facility] Start: 08-15-2021 End: 08-15-2021 ambulatory Ghislaine Ada Other [facility] Start: 08-15-2021 Telephone encounter Ghislaine Ada [facility] Start: 05-24-2021 End: 05-24-2021 ambulatory Ghislaine Ada Other [facility] Other Start: 05-24-2021 Telephone encounter Ghislaine Ada [facility] Start: 02-21-2021 End: 02-21-2021 ambulatory Ghislaine Ada Other [facility] Other Start: 02-21-2021 Telephone encounter Ghislaine Ada [facility] Start: 02-11-2021 End: 02-11-2021 ambulatory Ghislaine Ada Other [facility] Other Start: 02-11-2021 Telephone encounter Ghislaine Ada [facility] Start: 02-10-2021 End: 02-10-2021 ambulatory Ghislaine Ada Other [facility] Other Start: 02-10-2021 Office outpatient vi sit 25 minutes Ghislaine Ada [facility] Start: 07-20-2020 End: 07-21-2020 Patient encounter procedure MARIBEL AVALOS [facility] Start: 10-11-2017 End: 10-12-2017 Patient encounter Bakari Berg Facility:[facility] Payers Date Payer Category Payer Private Health Insurance [id number] 2020 Unknown [id number] 2017 Private Health Insurance [id number] Self-pay 1955 Unknown [id number] 2.16.8 40.1.554947.3.579.2.173 1955 Unknown [id number] 2.16.84 0.1.377619.3.579.2.593 1955 Unknown [id number] 2.16.84 0.1.686360.3.579.2.593 1955 Unknown [id number] 2.16.84 0.1.336956.3.579.2.593 1955 Unknown [id number] 2.16.84 0.1.655259.3.579.2.593 1953 Unknown [id number] 2.16.84 0.1.955526.3.579.2.593 1953 Unknown [id number] 2.16.84 0.1.591499.3.579.2.593 1953 Unknown [id number] 2.16.84 0.1.724275.3.579.2.593 1953 Unknown [id number] 2.16.84 0.1.558504.3.579.2.593 1953 Unknown [id number] 2.16.84 0.1.577177.3.579.2.593 1953 Unknown [id number] 2.16.84 0.1.852656.3.579.2.593 1953 Unknown [id number] 2.16.84 0.1.100368.3.579.2.593 1953 Unknown [id number] 2.16.84 0.1.347027.3.579.2.1259 1953 Unknown [id number] 2.16.84 0.1.171474.3.579.2.1259 1953 Unknown [id number] 2.16.84 0.1.126566.3.579.2.1259 1953 Unknown [id number] 2.16.84 0.1.553585.3.579.2.1259 1953 Unknown [id number] 2.16.84 0.1.548230.3.579.2.1259 1953 Unknown [id number] 2.16.84 0.1.588192.3.579.2.1259 1953 Unknown [id number] 2.16.84 0.1.284831.3.579.2.1259 1953 Unknown [id number] 2.16.84 0.1.781840.3.579.2.1259 1953 Unknown [id number] 2.16.84 0.1.061195.3.579.2.1259 1953 Unknown [id number] 2.16.84 0.1.394926.3.579.2.1259 1953 Unknown [id number] 2.16.84 0.1.915986.3.579.2.1259 1953 Unknown [id number] 2.16.8 40.1.739718.3.579.2.1286 1953 Unknown [id number] 2.16.8 40.1.953574.3.579.2.1286 1953 Unknown [id number] 2.16.8 40.1.467697.3.579.2.1286 1953 Unknown [id number] 2.16.8 40.1.219663.3.579.2.1286 1955 Unknown [id number] 2.16.8 40.1.263563.3.579.2.1286 1955 Unknown [id number] 2.16.8 40.1.331207.3.579.2.1286 Medicare [id number] 2. 16.840.1.183959.19 Unknown [id number] 2.16.84 0.1.931197.3.579.2.593 Social History Date Type Detail Facility Unknown if ever smoked [facility] Other Sex Assigned At Sex Assigned At Bir th [facility] Other Clinical Notes 12-27-2016 to 09-22-2023 Note [...] Kelly Mckeon MD on 09/22/2023 8:01 AM [facility] 04-05-2023 Evaluation note Encounter Date Diagnosis [...] monitor LFTs and lipid profile with PCP [facility] Other 06-01-2023 Evaluation note* Encounter Date Diagnosis [...] monitor LFTs and lipid profile with PCP [facility] Other 05-12-2023 NotePROCEDURE: XR KNEE LT 3V HISTORY: Pain of joint of knee ; acute left knee pain COMPARISON: None. FINDINGS: BONES:No fracture, acute abnormality, or significant arthropathy. SOFT TISSUES:No visible soft tissue swelling. EFFUSION:None visible. OTHER: Negative. IMPRESSION: 1. No appreciable acute abnormality or significant degenerative joint disease. Electronically authenticated by: PEGGY CORTEZ Date: 2022-08-18 12:27[facility]12-15-2022 Evaluation note* Encounter Date Diagnosis Assessment [...] low Iron. She had a colonoscopy in 2017. Continue oral Iron every other day. I have advised the patient to follow-up with a GI to see if she is due for colonoscopy. Mar, Secondary hyperparathyroidism (ICD-10 - N25.81) MBD parameters including calcium, phosphorus, PTH and vitamin D are within the goal. Continue oral vitamin D [facility] Other 07-12-2022 NotePROCEDURE: XR PELVIS W_OBL MIN [...] authenticated by: CONNIE LICEA Date: 2021-10-18 19:13[facility]05-26-2022 Evaluation note* Encounter Date Diagnosis Assessment [...] low Iron. She had a colonoscopy in 2017. Continue oral Iron every other day. I have advised the patient to follow-up with a GI to see if she is due for colonoscopy. August, Secondary hyperparathyroidism (ICD-10 - N25.81) MBD parameters including calcium, phosphorus, PTH and vitamin D are within the goal. Continue oral vitamin D [facility] Other [id number] Evaluation note* Encounter Date Diagnosis Assessment Notes Treatment Notes Treatment Clinical Notes August, Type 2 diabetes mellitus with diabetic chronic kidney disease (ICD-10 - E11.22) [facility] Other 11-04-2021 Evaluation note* Encounter Date Diagnosis [...] the goal and Vit D is normal. [facility] Other 09-20-2017 History general Narrative - Reported* Type Description Date Medical History diabetes mellitus Medical History hypertension Medical History hyperlipidemia Surgical History COLONOSCOPY NORMAL P ER PATIENT AT [facility] 12-27-2016 Hospitalization History Dehydration [facility] p.,. june 2016 [facility] Other 09-20-2017 History general Narrative - Reported* Type Description Date Medical History diabetes mellitus Medical History hypertension Medical History hyperlipidemia Surgical History COLONOSCOPY NORMAL P ER PATIENT AT [facility] 12-27-2016 Hospitalization History De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 08/09/2021 [facility] Other 09-20-2017 History general Narrative - Reported* Type Description Date Medical History diabetes mellitus Medical History hypertension Medical History hyperlipidemia Surgical History COLONOSCOPY NORMAL P ER PATIENT AT [facility] 12-27-2016 Hospitalization History Dehydration [facility]. 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, UTI, SEPSIS 08/09/2021 [facility] Other 09-20-2017 History general Narrative - Reported* Type Description Date Medical History diabetes mellitus Medical History hypertension Medical History hyperlipidemia Medical History OSTEOPOROSIS Surgical History COLONOSCOPY NORMAL P ER PATIENT AT [facility] 12-27-2016 Hospitalization History Dehydration [facility]. 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, UTI, SEPSIS 08/09/2021 [facility] Other Evaluation noteNo InformationNoMJH Other Evaluation noteNoMJH Other History general Narrative - ReportedNoMJH Other Summary Purpose Family History No Family History Records FoundNo Family History Records FoundNo Family History Records FoundNo Family History Records FoundNo Family History Records Found Advance Directives No Advanced Directives Records FoundNo Advanced Directives Records FoundNo Advanced Directives Records FoundNo Advanced Directives Records FoundNo Advanced Directives Records Found Additional Source Comments INFORMATION SOURCE (unrecogn ized section and content) DATE CREATED AUTHOR 12/05/2017 [facility] DATE CREATED AUTHOR AUTHOR'S ORGANIZ ATION 07/23/2020 [facility] DATE CREATED AUTHOR AUTHOR'S ORGANIZ ATION 09/16/2022 [facility] DATE CREATED AUTHOR AUTHOR'S ORGANIZ ATION [facility]/02[facility]2023 [facility] DATE CREATED AUTHOR AUTHOR'S ORGANIZ ATION 10/10/2023 [facility] REASON FOR VISIT (unrecogniz ed section and [...] BE BASED ON THE PRIMARY CLINICAL RECORDS. [facility]. provides no warranty or guarantee of the accuracy or completeness of information in this document.
--- NOTE | 2023-10-12 18:02 | ECG_ITS ---
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
--- NOTE | 2023-10-12 18:03 | ED.MEDCLEAR1 ---
HPI - Medical Clearance General Chief complaint: Medical Clearance Stated complaint: POSS UTI Time Seen by Provider: 10/12/23 17:47 Source: patient Mode of arrival: Wheelchair Limitations: no limitations History of Present Illness HPI Narrative: Patient is a 67-year-old female who presents to the emergency department for the evaluation of chills this afternoon. She denies fevers, chest pain, shortness of breath. She has no palpitations, vomiting. She states that her urine was strong smelling and she is concerned she has a urinary tract infection. She was treated for urinary tract infection on 09/27/2023 with an outpatient urine specimen showing infection, although the culture grew 10,000-20,000 colony count of E. coli which was susceptible. Patient has no complaints of pain, nausea. She is diabetic. She states her blood sugars are controlled. She is following currently with local orthopedics because she is due to have a hip replacement this week. Related Information Home Medications ?Medication ?Instructions ?Recorded ?Confirmed alendronate 70 mg tablet 70 mg PO DAILY 10/12/23 10/12/23 atorvastatin 10 mg tablet 10 mg PO BEDTIME 10/12/23 10/12/23 calcium carbonate 600 mg-vitamin 1 tab PO BID 10/12/23 10/12/23 D3 10 mcg (400 unit) tablet ferrous sulfate 325 mg (65 mg 325 mg PO DAILY 10/12/23 10/12/23 iron) tablet (FeroSul) iron polysacch cplx 150 mg 1 cap PO DAILY 10/12/23 10/12/23 iron-vit B12 25 mcg-folic acid 1 mg capsule (Poly-Iron) losartan 100 1 tab PO DAILY 10/12/23 10/12/23 mg-hydrochlorothiazide 25 mg tablet magnesium oxide 400 mg (241.3 mg 400 mg PO DAILY 10/12/23 10/12/23 magnesium) tablet metformin 500 mg tablet 500 mg PO BID 10/12/23 10/12/23 metoprolol tartrate 50 mg tablet 50 mg PO BID 10/12/23 10/12/23 [id number] 8 mg-folic 400 1 tab PO DAILY 10/12/23 10/12/23 mcg-K 50 mcg-lutein 300 mcg tablet (Centrum Silver Women) Allergies Allergy/AdvReac Type Severity Reaction Status Date / Time No Known Drug Allergies Allergy Verified 10/12/23 18:02 Review of Systems ROS Constitutional Reports: chills; Denies: fever Ears, nose, mouth, and throat Denies: throat pain or nasal congestion Cardiovascular Denies: chest pain Respiratory Denies: shortness of breath or cough Gastrointestinal Denies: abdominal pain, nausea or vomiting Musculoskeletal Denies: back pain Integumentary/Breast Denies: rash Hematologic/Lymphatic Denies: easy bruising or easy bleeding Exam Narrative Exam Narrative: Gen.: Awake, alert, in no distress Head: Normocephalic, atraumatic ENT: Moist mucous membranes Respiratory: No respiratory distress, lungs clear bilaterally Cardio: Tachycardia Gastrointestinal: Abdomen is soft, nondistended and nontender to palpation Extremities: Moves extremities equally Psych: Normal mood and affect Neuro: No focal neuro deficit Skin: Warm, dry, intact Constitutional Vital Signs, click to edit/add: Last Vital Signs Temp 98.2 F 10/12/23 17:54 Pulse 108 H 10/12/23 19:00 Resp 21 H 10/12/23 19:00 BP 119/77 10/12/23 19:00 Pulse Ox 95 10/12/23 19:00 O2 Del Method Room Air 10/12/23 17:54 Course Vital Signs Vital signs: Vital Signs Temperature 98.2 F 10/12/23 17:54 Pulse Rate 126 H 10/12/23 17:54 Respiratory Rate 18 10/12/23 17:54 Blood Pressure 148/78 H 10/12/23 17:54 Pulse Oximetry 96 10/12/23 17:54 Oxygen Delivery Method Room Air 10/12/23 17:54 Temperature 98.2 F 10/12/23 17:54 Pulse Rate 108 H 10/12/23 19:00 Respiratory Rate 21 H 10/12/23 19:00 Blood Pressure 119/77 10/12/23 19:00 Pulse Oximetry 95 10/12/23 19:00 Oxygen Delivery Method Room Air 10/12/23 17:54 MDM - Medical Clearance [facility] Narrative Medical decision making narrative: Initially the patient and her family refused IV fluids despite her tachycardia, she states that her orthopedic surgeon Instructed her not to take any fluids. It was explained to the patient that based on her tachycardia, elevated white blood cell count and UTI with elevated procalcitonin, she does meet sepsis criteria. She was agreeable to a liter of IV fluids, IV Rocephin. Based on her age, history of diabetes and meeting sepsis criteria, we recommended inpatient admission for IV fluids and antibiotics. She is stable at time of admission. She was noted to have elevated bilirubin and LFTs, she was reevaluated by attending physician and she has no abdominal tenderness, no flank or back pain. No vomiting. She is agreeable to admission and she was excepted by the hospitalist service. SHARED APC VISIT, PHYSICIAN ATTESTATION: [id number] I performed a substantive part of the MDM during the patient?s E/M visit. I personally evaluated and examined the patient. I personally made or approved the documented management plan and acknowledge its risk of complications. Medical Records Attestation: I reviewed the patient's medical records. Lab Data Attestation: I reviewed the patient's lab results. Labs: Lab Results 10/12/23 10/12/23 Range/Units 18:05 18:15 WBC 12.0 H (4.0-11.0) 10^3/uL RBC 3.79 L (4.20-5.40) 10^6/uL Hgb 11.7 L (12.0-16.0) g/dL Hct 35.1 L (36.0-48.0) % MCV 92.6 (81.0-99.0) fL MCH 30.9 (26.7-34.0) pg MCHC 33.3 (29.9-35.2) g/dL RDW 12.4 (11.0-15.0) % Plt Count 275 (150-450) 10^3/uL MPV 10.6 (9.5-13.5) fL Seg Neuts % (Manual) 76.0 Lymphocytes % (Manual) 11.0 L (20.5-60.0) % Monocytes % (Manual) 13.0 H (1.7-12.0) % Eosinophils % (Manual) 0.0 L (0.9-7.0) % Basophils % (Manual) 0.0 L (0.2-2.0) % Neutrophils # (Manual) 9.12 H (1.4-6.5) 10^3/uL Lymphocytes # (Manual) 1.32 (1.20-3.80) 10^3/uL Monocytes # (Manual) 1.56 H (0.30-0.80) 10^3/uL Eosinophils # (Manual) 0.00 (0.00-0.70) 10^3/uL Basophils # (Manual) 0.00 (0.00-0.10) 10^3/uL ESR >130 H (<=30) mm/hr VBG pH 7.478 H (7.330-7.430) VBG pCO2 32.8 L (40.0-52.0) mmHg Sodium 132 L (136-145) mmol/L Potassium 3.5 (3.5-5.1) mmol/L Chloride 95 L (98-107) mmol/L Carbon Dioxide 24.9 (21.0-32.0) mmol/L Anion Gap 15.6 BUN 23.0 H (7.0-18.0) mg/dL Creatinine 1.47 H (0.55-1.02) mg/dL Est GFR ( Amer) 43 L (>=60) Est GFR (Non-Af Amer) 35 L (>=60) BUN/Creatinine Ratio 15.6 Glucose 230 H (74-106) mg/dL Lactate 2.0 (0.4-2.0) mmol/L Calcium 8.9 (8.5-10.1) mg/dL Total Bilirubin 1.4 H (0.2-1.0) mg/dL AST 81 H (15-37) U/L ALT 114 H (14-59) U/L Alkaline Phosphatase 159 H (46-116) U/L C-Reactive Protein 19.43 H (<=0.50) mg/dL Total Protein 7.9 (6.4-8.2) g/dL Albumin 3.4 (3.4-5.0) g/dL Globulin 4.5 g/dL Albumin/Globulin Ratio 0.8 Procalcitonin 1.48 H (0.00-0.50) ng/mL Urine Color Yellow (YELLOW) Urine Clarity Clear (CLEAR) Urine pH 6.0 (5.0-9.0) Ur Specific Douglas 1.015 (1.005-1.025) Urine Protein 100 A (NEG/TRACE) mg/dL Urine Glucose (UA) Negative (NEGATIVE) mg/dL Urine Ketones Negative (NEGATIVE) mg/dL Urine Occult Blood Small A (NEGATIVE) Urine Nitrite Positive A (NEGATIVE) Urine Bilirubin Negative (NEGATIVE) Urine Urobilinogen 0.2 (0.2-1.0) EU/dL Ur Leukocyte Esterase Moderate A (NEGATIVE) Urine RBC 0-2 (0-2) #/HPF Urine WBC >100 A (NONE SEEN) #/HPF Ur Squamous Epith Cells Moderate A (NONE/RARE) #/LPF Urine Crystals None seen (None Seen) #/HPF Urine Bacteria Large A (NONE SEEN) #/HPF Urine Casts None seen (NONE SEEN) #/LPF Urine Mucus None seen (NONE SEEN) Ur Culture Indicated? Yes ECG Data Attestation: I personally reviewed and interpreted this ECG as follows: (Sinus tachycardia at a rate of 115, no acute ST elevation or ectopy. EKG reviewed by attending physician) Discharge Plan Discharge Chief Complaint: Medical Clearance Patient Disposition: Admitted As Inpatient Time of Disposition Decision: 19:48 Prescriptions / Home Meds: No Action alendronate 70 mg tablet 70 mg PO DAILY atorvastatin 10 mg tablet 10 mg PO BEDTIME calcium carbonate-vitamin D3 600 mg-10 mcg (400 unit) tablet 1 tab PO BID ferrous sulfate [FeroSul] 325 mg (65 mg iron) tablet 325 mg PO DAILY Poly-Iron 150 Forte 150-25-1 mg-mcg-mg capsule 1 cap PO DAILY losartan-hydrochlorothiazide 100-25 mg tablet 1 tab PO DAILY magnesium oxide 400 mg (241.3 mg magnesium) tablet 400 mg PO DAILY metformin 500 mg tablet 500 mg PO BID metoprolol tartrate 50 mg tablet 50 mg PO BID Centrum Silver Women 8 mg iron-400 mcg-50 mcg tablet 1 tab PO DAILY Print Language: Danish Referrals: Romulo Garcia MD [Primary Care Provider] - 1 week
[2023-10-12 18:18] LABS: Bilirubin Urine NEGATIVE (NEGATIVE); Blood Urine SMALL (NEGATIVE); Clarity Urine CLEAR (CLEAR); Color Urine YELLOW (YELLOW); Glucose Urine UA NEGATIVE (NEGATIVE); Ketones Urine NEGATIVE (NEGATIVE); Leukocyte Esterase Urine MODERATE (NEGATIVE); Nitrite Urine POSITIVE (NEGATIVE); Protein Urine 100 mg/dL (NEG/TRACE); Specific Gravity Urine 1.015 (1.005-1.025); Urobilinogen Urine 0.2 EU/dL (0.2-1.0)
[2023-10-12 18:19] LABS: Urine Microscopic Indicated YES
[2023-10-12 18:30] LABS: Bacteria Urine LARGE #/HPF (NONE SEEN); Mucus Urine NONE SEEN (NONE SEEN); RBC Urine 0-2 #/HPF (0-2); Squamous Epithelial Cell Urine MODERATE #/LPF (NONE/RARE); WBC Urine >100 #/HPF (NONE SEEN)
[2023-10-12 18:31] LABS: Hematocrit 35.1 % (36.0-48.0); Hemoglobin 11.7 g/dL (12.0-16.0); Mean Corpuscular HGB Conc 33.3 g/dL (29.9-35.2); Mean Corpuscular Hemoglobin 30.9 pg (26.7-34.0); Mean Corpuscular Volume 92.6 fL (81.0-99.0); Mean Platelet Volume 10.6 fL (9.5-13.5); Platelet Count 275 10^3/uL (150-450); Red Blood Count 3.79 10^6/uL (4.20-5.40); Red Cell Distribution Width 12.4 % (11.0-15.0)
[2023-10-12 18:31] LABS: Cast Seen? NONE SEEN #/LPF (NONE SEEN); Crystals Seen? None Seen #/HPF (None Seen); Urine Culture Indicated YES
[2023-10-12 18:33] LABS: pH VBG 7.478 (7.330-7.430)
[2023-10-12 18:34] LABS: PCO2 VBG 32.8 mmHg (40.0-52.0)
[2023-10-12 18:49] LABS: Alanine Aminotransferase 114 U/L (14-59); Albumin Globulin Ratio 0.8; Albumin Level 3.4 g/dL (3.4-5.0); Alkaline Phosphatase 159 U/L (46-116); Anion Gap 15.6; Aspartate Amino Transferase 81 U/L (15-37); BUN Creatinine Ratio 15.6; Bilirubin Total 1.4 mg/dL (0.2-1.0); C Reactive Protein 19.43 mg/dL (<=0.50); Calcium 8.9 mg/dL (8.5-10.1); Carbon Dioxide 24.9 mmol/L (21.0-32.0); Chloride 95 mmol/L (98-107); Estimated GFR (African America 43 (>=60); Estimated GFR (Non-African Ame 35 (>=60); Globulin 4.5 g/dL; Glucose 230 mg/dL (74-106); Potassium 3.5 mmol/L (3.5-5.1); Sodium 132 mmol/L (136-145); Total Protein 7.9 g/dL (6.4-8.2)
[2023-10-12 18:52] LABS: Lymphocytes Absolute Manual 1.32 10^3/uL (1.20-3.80); Monocytes Absolute Manual 1.56 10^3/uL (0.30-0.80); Segmented Neut Absolute Manual 9.12 10^3/uL (1.4-6.5)
[2023-10-12 18:54] LABS: Erythrocyte Sedimentation Rate >130 mm/hr (<=30)
[2023-10-12 19:12] LABS: PROCALCITONIN 1.48 ng/mL (0.00-0.50)
[2023-10-12] MEDS: 0.9 % SODIUM CHLORIDE 1,000 ML 1000 ML IV (19:42)
[2023-10-12] MEDS: CEFTRIAXONE 1,000 MG in 0.9 % SODIUM CHLORIDE 50 ML 100 MG IV (19:42)
--- OUTSIDE RECORDS SUMMARY | 2023-10-12 20:47 | XMS_ITS | CCD ---
Author Organization [facility] Care Team Providers Care School Adjustment Counselor Name Role Phone Rice, Bakari W Unavailable Unavailable Rice, Bakari W Unavailable Unavailable Rice, Bakari W Unavailable Unavailable NADERER, [phone] UNKNOWN Unavailable Unavailable NADERER, MARIBEL AVALOS Primary [...] NADERER, DR MARIBEL Mueller Primary Care Unavailable DEWEY, DR CONNIE José Consulting Unavailable NADERER, DR [...] CHANO Consulting Unavailable FILUTZANAIS Calderon Consulting Unavailable NADEREMaria L, MARIBEL Attending Unavailable ANAIS MELTON Attending [...] Medication Allergies] Propensity to adverse reactions (disorder) [facility] Repository Medications Current Medications Medication Drug [...] Active docusate sodium 50 mg / sennosides, care home 8.6 mg oral tablet (2 sources) [...] 2 Chronic Other aftercare (1 source) Other buttermaker (current) drug therapy; Translations: [OTH CARE HOME CURRENT DRUG THERAPY] Onset: 3 Episodic Other aftercare (1 source) manager long term care (current) use of aspirin; Translations: [CARE HOME CURRENT USE OF ASPIRIN] Onset: 3 Episodic Other aftercare (1 source) manager long term care (current) use of oral hypoglycemic drugs; Translations: [CARE HOME USE ORAL HYPOGLYCEMIC DX] Onset: 3 Episodic [...] Anion gap [Moles/Vol] 7 mmol/L Normal 5-15 [facility] Comment on above: Performed By: #### C BCA, BMP, HA1C #### [facility] ([id number]) [address], [address] [place] [address] Calcium [Mass/Vol] 9.7 mg/dL Normal 8.5-10.5 [facility] Comment on above: Performed By: #### C SELAM SALDANA, HA1C #### [facility] ([id number]) [address], [address] [place] [address] Chloride [Moles/Vol] 99 mmol/L Normal 98-109 [facility] Comment on above: Performed By: #### C SELAM SALDANA, HA1C #### [facility] ([id number]) [address], [address] [place] [address] CO2 [Moles/Vol] 30 mmol/L Normal 22-32 [facility] Comment on above: Performed By: #### C SELAM SALDANA, HA1C #### [facility] ([id number]) [address], [address] [place] [address] Creatinine [Mass/Vol] 1.09 mg/dL High 0.40-1.00 [facility] Comment on above: Result Comment: METH OD TRACEABLE TO IDMS STANDARD Performed By: #### C SELAM SALDANA, HA1C #### [facility] ([id number]) [address], [address] [place] [address] GFR/1.73 sq M.predicted among non-blacks MDRD (S/P/Bld) [Vol rate/Area] 55 mL/min/{1.73_m2} Low >59 [facility] Comment on above: Result Comment: Reported eGFR is based on the CKD-EPI 2020 equation that does not use a race coefficient. Performed By: #### C SELAM SALDANA, HA1C #### [facility] ([id number]) [address], [address] [place] [address] Glucose [Mass/Vol] 109 mg/dL High 65-99 [facility] Comment on above: Performed By: #### C SELAM SALDANA, HA1C #### [facility] ([id number]) [address] [address] [place] [address] Potassium [Moles/Vol] 4.1 mmol/L Normal 3.5-5.0 [facility] Comment on above: Performed By: #### C SELAM SALDANA, HA1C #### [facility] ([id number]) [address], [facility] [address] [place] [address] Sodium [Moles/Vol] 136 mmol/L Normal 134-146 [facility] Comment on above: Performed By: #### C SELAM SALDANA, HA1C #### [facility] ([id number]) [address] [address] [place] [address] Urea nitrogen [Mass/Vol] 26 mg/dL Normal 5-27 [facility] Comment on above: Performed By: #### SELAM Crandall BCA, HA1C #### [facility] ([id number]) [address] [address] [place] [address] CBC AND AUTO DIFFon 12-20 24 ABSOLUTE BASOPHIL 0.1 X10E9/L Normal 0.0-0.2 [facility] Comment on above: Performed By: #### C SELAM SALDANA, HA1C #### [facility] ([id number]) [address] [place] [address] ABSOLUTE NEUTROPHIL 3.1 X10E9/L Normal 1.5-6.6 [facility] Comment on above: Performed By: #### C SELAM SALDANA, HA1C #### [facility] ([id number]) [address] [place] [address] Basophils/100 WBC (Bld) 1.1 % Normal [facility] Comment on above: Performed By: #### C SELAM SALDANA, HA1C #### [facility] ([id number]) [address] [place] [address] Eosinophils (Bld) [#/Vol] 0.2 10*3/uL Normal 0.0-0.4 [facility] Comment on above: Performed By: #### SELAM Crandall BCA, HA1C #### [facility] ([id number]) [address], [facility] [address] [place] [address] Eosinophils/100 WBC (Bld) 3.6 % Normal [facility] Comment on above: Performed By: #### SELAM Crandall BCA, HA1C #### [facility] ([id number]) [address], [facility] [address] [place] [address] Erythrocyte distribution width (RBC) [Ratio] 13.3 % Normal 11.5-15.0 [facility] Comment on above: Performed By: #### SELAM Crandall BCA, HA1C #### [facility] ([id number]) [address], [address] [place] [address] Hematocrit (Bld) [Volume fraction] 36.8 % Normal 35-47 [facility] Comment on above: Performed By: #### SELAM Crandall BCA, HA1C #### [facility] ([id number]) [address] [address] [place] [address] Hemoglobin (Bld) [Mass/Vol] 12.0 g/dL Normal 11.7-15.5 [facility] Comment on above: Performed By: #### SELAM Crandall BCA, HA1C #### [facility] ([id number]) [address], [facility] [address] [place] [address] Lymphocytes (Bld) [#/Vol] 1.5 10*3/uL Normal 1.0-3.5 [facility] Comment on above: Performed By: #### SELAM Crandall BCA, HA1C #### [facility] ([id number]) [address], [address] [place] [address] Lymphocytes/100 WBC (Bld) 26.2 % Normal [facility] Comment on above: Performed By: #### SELAM Crandall BCA, HA1C #### [facility] ([id number]) [address], [address] [place] [address] MCH (RBC) [Entitic mass] 30.0 pg Normal 27-34 [facility] Comment on above: Performed By: #### SELAM Crandall BCA, HA1C #### [facility] ([id number]) [address], [address] [place] [address] MCHC (RBC) [Mass/Vol] 32.6 g/dL Normal 32-36 [facility] Comment on above: Performed By: #### SELAM Crandall BCA, HA1C #### [facility] ([id number]) [address], [address] [place] [address] MCV (RBC) [Entitic vol] 92 fL Normal 80-100 [facility] Comment on above: Performed By: #### SELAM Crandall BCA, HA1C #### [facility] ([id number]) [address] [place] [address] Monocytes (Bld) [#/Vol] 0.7 10*3/uL Normal 0-0.9 [facility] Comment on above: Performed By: #### SELAM Crandall BCA, HA1C #### [facility] ([id number]) [address], [address] [place] [address] Monocytes/100 WBC (Bld) 13.1 % Normal [facility] Comment on above: Performed By: #### SELAM Crandall BCA, HA1C #### [facility] ([id number]) [address], [address] [place] [address] Neutrophils/100 WBC (Bld) 56.0 % Normal [facility] Comment on above: Performed By: #### SELAM Crandall BCA, HA1C #### [facility] ([id number]) [address] [address] [place] [address] Platelet mean volume (Bld) [Entitic vol] 9.6 fL Normal 7-12 [facility] Comment on above: Performed By: #### SELAM Crandall BCA, HA1C #### [facility] ([id number]) [address] [place] [address] Platelets (Bld) [#/Vol] 274 10*3/uL Normal 150-450 [facility] Comment on above: Performed By: #### SELAM Crandall BCA, HA1C #### [facility] ([id number]) [address] [place] [address] RBC COUNT 4.00 X10E12/L Normal 3.80-5.20 [facility] Comment on above: Performed By: #### SELAM Crandall BCA, HA1C #### [facility] ([id number]) [address] [place] [address] WBC (Bld) [#/Vol] 5.6 10*3/uL Normal 4.0-11.0 [facility] Comment on above: Performed By: #### SELAM Crandall BCA, HA1C #### [facility] ([id number]) [address] [place] [address] HGB A1C (GLYCO-HGB)on 2023 Glucose [Mass/Vol] 131 mg/dL Normal [facility] Comment on above: Performed By: #### SELAM Crandall BCA, HA1C #### [facility] ([id number]) [address] [place] [address] HbA1c (Bld) [Mass fraction] 6.2 % High 4.4-5.6 [facility] Comment on above: Result Comment: NOTE ADA Guidelines Result HgbA1c Normal : less than 5.7 % Prediabetes : 5.7 % to 6.4 % Diabetes : > 6.4 % Use with caution in patients with abnormal hemoglobin variants as the half-life of red blood cells and in vivo glycation rates are affected. Performed By: #### C BCA, BMP, HA1C #### [facility] ([id number]) [address], [address] [place] [address] URINALYSISon 09-19-2023 Bilirubin Ql (U) Negative Normal NEG [facility] Comment on above: Performed By: #### U A #### [facility] ([id number]) [address], [address] [place] [address] BLOOD/HGB Negative Normal NEG [facility] Comment on above: Performed By: #### U A #### [facility] ([id number]) [address] [place] [address] Color (U) YELLOW Normal YELLOW [facility] Comment on above: Performed By: #### U A #### [facility] ([id number]) [address], [address] [place] [address] Glucose Ql (U) Negative Normal NEG [facility] Comment on above: Performed By: #### U A #### [facility] ([id number]) [address] [place] [address] Hyaline casts LM Ql (Urine sed) 1 /lpf Normal 0-2 [facility] Comment on above: Performed By: #### U A #### [facility] ([id number]) [address], [address] [place] [address] Ketones Ql (U) Negative Normal NEG [facility] Comment on above: Performed By: #### U A #### [facility] ([id number]) [address], [address] [place] [address] Leukocyte esterase Test strip Ql (U) Large Abnormal NEG [facility] Comment on above: Performed By: #### U A #### [facility] ([id number]) [address] [place] [address] [address] [place] [address] MUCOUS PRESENT Abnormal NONE [facility] Comment on above: Performed By: #### U A #### [facility] ([id number]) [address] [place] [address] [address] [place] [address] Nitrite Ql (U) Negative Normal NEG [facility] Comment on above: Performed By: #### U A #### [facility] ([id number]) [address] [place] [address], [facility] [address] [place] [address] pH (U) 8.0 [pH] Normal 5.0-8.5 [facility] Comment on above: Performed By: #### U A #### [facility] ([id number]) [address] [place] [address] [address] [place] [address] Protein Ql (U) Trace Abnormal NEG [facility] Comment on above: Performed By: #### U A #### [facility] ([id number]) [address] [place] [address] [address] [place] [address] R.B.CELLS 4 /hpf Normal 0-5 [facility] Comment on above: Performed By: #### U A #### [facility] ([id number]) [address] [place] [address] [address] [place] [address] Specific gravity (U) [Rel density] 1.015 Normal 1.003-1.035 [facility] Comment on above: Performed By: #### U A #### [facility] ([id number]) [address] [place] [address] [address] [place] [address] SQUAMOUS EPITHELIUM 2 /hpf Normal 0-5 [facility] Comment on above: Performed By: #### U A #### [facility] ([id number]) [address] [place] [address] [address] [place] [address] TRANSITIONAL EPITH <1 High 0 [facility] Comment on above: Performed By: #### U A #### [facility] ([id number]) [address], [address] [address] TURBIDITY HAZY Abnormal CLEAR [facility] Comment on above: Performed By: #### U A #### [facility] ([id number]) [address] [address] Urobilinogen (U) [Mass/Vol] mg/dL Normal <1.1 [facility] Comment on above: Performed By: #### U A #### [facility] ([id number]) [address] [address] W.B.CELLS 60 /hpf High 0-5 [facility] Comment on above: Performed By: #### U A #### [facility] ([id number]) [address] [address] URINE CULTUREon 09-19-2023 Bacteria identified Cx Nom (U) CULTURE RESULTS MULTIPLE SPECIES PRESENT. PROBABLE COLLECTION CONTAMINATION. SUGGEST REPEAT SPECIMEN. Normal [facility] Comment on above: Performed By: #### 6 30-4 #### [facility] ([id number]) [address] [address] XR CHEST 2 VWSon 09-19-2023 XR CHEST 2 VWS XR CHEST 2 VWS XR CHEST 2 VWS INDICATION: Preop examination; Hypertension, unspecified type; Type 2 diabetes mellitus without complication, without long-term current use of insulin ([facility]); Urinary frequency; Former smoker; Osteoarthritis of left hip, unspecified osteoarthritis type. FINDINGS: Cardiac silhouette is normal in size. Trachea midline. No focal pulmonary consolidation. No pleural effusion. No pneumothorax. IMPRESSION: 1. Unremarkable chest radiographs. Finalized by Sincere Charles MD on 09/19/2023 11:47 PM Normal [facility] PTH INTACTon 09-01-2022 PTH, Intact 26 pg/mL Normal 15-65 [facility] Comment on above: Performed By: #### P THINT #### [facility] [address] [address] [address] Nunu Borges CBC AUTO DIFFon 08-31-2022 BASO # 0.1 103/ul Normal 0.0-0.1 [facility] Comment on above: Performed By: #### U TIFFANIE, MG, RENAL #### [facility] [address] [place] [address] Dr. Nunu Borges Basophils/100 WBC (Bld) 1.2 % Normal 0.2-2.0 [facility] Comment on above: Performed By: #### U TIFFANIE, MG, RENAL #### [facility] [address] [place] [address] Dr. Nunu Borges EO # 0.1 103/ul Normal 0.0-0.7 [facility] Comment on above: Performed By: #### U TIFFANIE, MG, RENAL #### [facility] [address] [place] [address] Dr. Nunu Borges Eosinophils/100 WBC (Bld) 2.2 % Normal 0.9-7.0 [facility] Comment on above: Performed By: #### U TIFFANIE, MG, RENAL #### [facility] [address] [place] [address] Dr. Nunu Borges Erythrocyte distribution width (RBC) [Ratio] 12.7 % Normal 11.0-15.0 [facility] Comment on above: Performed By: #### U TIFFANIE, MG, RENAL #### [facility] [address] [place] [address] Dr. Nunu Borges Hematocrit (Bld) [Volume fraction] 38.0 % Normal 36.0-48.0 [facility] Comment on above: Performed By: #### U TIFFANIE, MG, RENAL #### [facility] [address] [place] [address] Dr. Nunu Borges Hemoglobin (Bld) [Mass/Vol] 12.5 g/dL Normal 12.0-16.0 [facility] Comment on above: Performed By: #### U TIFFANIE, MG, RENAL #### [facility] [address] [address] [address] Nunu Borges IG # 0.02 10e3/ul Normal 0.00-0.03 [facility] Comment on above: Performed By: #### U TIFFANIE, MG, RENAL #### [facility] [address] [address] [address] Nunu Borges IG % 0.3 % Normal 0.0-0.5 [facility] Comment on above: Performed By: #### U TIFFANIE, MG, RENAL #### [facility] [address] [address] [address] Nunu Borges LYMPH # 1.8 103/ul Normal 1.2-3.8 [facility] Comment on above: Performed By: #### U TIFFANIE, MG, RENAL #### [facility] [address] [address] [address] Nunu Borges Lymphocytes/100 WBC (Bld) 30.7 % Normal 20.5-60.0 [facility] Comment on above: Performed By: #### U TIFFANIE, MG, RENAL #### [facility] [address] [address] [address] Nunu Borges MANUAL DIFF REQ NO Normal [facility] Comment on above: Performed By: #### U TIFFAINE, MG, RENAL #### [facility] [address] [address] [address] Nunu Borges MCH (RBC) [Entitic mass] 29.8 pg Normal 26.7-34.0 [facility] Comment on above: Performed By: #### U TIFFANIE, MG, RENAL #### [facility] [address] [address] [address] Nunu Borges MCHC (RBC) [Mass/Vol] 32.9 g/dL Normal 29.9-35.2 [facility] Comment on above: Performed By: #### U TIFFANIE, MG, RENAL #### [facility] [address] [address] [address] Nunu Borges MCV (RBC) [Entitic vol] 90.5 fL Normal 81.0-99.0 [facility] Comment on above: Performed By: #### U TIFFANIE, MG, RENAL #### [facility] [address] [place] [address] Dr. Nunu Borges MONO # 0.7 103/ul Normal 0.3-0.8 [facility] Comment on above: Performed By: #### U TIFFANIE, MG, RENAL #### [facility] [address] [place] [address] Dr. Nunu Borges Monocytes/100 WBC (Bld) 12.4 % Critically high 1.7-12.0 [facility] Comment on above: Performed By: #### U TIFFANIE, MG, RENAL #### [facility] [address] [place] [address] Dr. Nunu Borges NEUT # 3.1 103/ul Normal 1.4-6.5 [facility] Comment on above: Performed By: #### U TIFFANIE, MG, RENAL #### [facility] [address] [place] [address] Dr. Nunu Borges Neutrophils/100 WBC (Bld) 53.2 % Normal 43.0-75.0 [facility] Comment on above: Performed By: #### U TIFFANIE, MG, RENAL #### [facility] [address] [place] [address] Dr. Nunu Borges Platelet mean volume (Bld) [Entitic vol] 11.3 fL Normal 9.5-13.5 [facility] Comment on above: Performed By: #### U TIFFANIE, MG, RENAL #### [facility] [address] [place] [address] Dr. Nunu Borges PLT 284 103/ul Normal 150-450 [facility] Comment on above: Performed By: #### U TIFFANIE, MG, RENAL #### [facility] [address] [place] [address] Dr. Nunu Borges RBC 4.20 106/ul Normal 4.20-5.40 [facility] Comment on above: Performed By: #### U TIFFANIE, MG, RENAL #### [facility] [address] [address] [address] Nunu Borges WBC 5.9 103/ul Normal 4.0-11.0 [facility] Comment on above: Performed By: #### U TIFFANIE, MG, RENAL #### [facility] [address] [place] [address] Dr. Nunu Borges FERRITINon 08-31-2022 Ferritin [Mass/Vol] 66.0 ng/mL Normal 8.0-252.0 [facility] Comment on above: Performed By: #### U TIFFANIE, MG, RENAL #### [facility] [address] [address] [address] Nunu Borges GLYCOHEMOGLOBIN A1Con 2022 ADA RECOMMENDATION SEE BELOW Normal [facility] Comment on above: Result Comment: ADA RECOMMENDED LIMIT 4.0 - 6.0 ADA THERAPEUTIC TARGET < 7.0 ACTION SUGGESTED > 7.0 Performed By: #### U TIFFANIE, MG, RENAL #### [facility] [address] [address] [address] Nunu Borges Glucose [Mass/Vol] 134 mg/dL Normal [facility] Comment on above: Performed By: #### U TIFFANIE, MG, RENAL #### [facility] [address] [address] [address] Nunu Borges HbA1c (Bld) [Mass fraction] 6.3 % Critically high 4.5-6.2 [facility] Comment on above: Performed By: #### U TIFFANIE, MG, RENAL #### [facility] [address] [address] [address] Nunu Borges IRON AND TIBCon 08-31-2022 % SATURATION 25.9 % Normal [facility] Comment on above: Performed By: #### U TIFFANIE, MG, RENAL #### [facility] [address] [address] [address] Nunu Borges Iron [Mass/Vol] 90.0 ug/dL Normal 50.0-170.0 [facility] Comment on above: Performed By: #### U TIFFANIE, MG, RENAL #### [facility] [address] [address] [address] Nunu Borges TIBC DIRECT 348.0 ug/dL Normal 250.0-450.0 [facility] Comment on above: Performed By: #### U TIFFANIE, MG, RENAL #### [facility] [address] [place], [place] [address] Dr. Nunu Borges LIPID PROFILEon 08-31-2022 CHOL-HDL RATIO NORM SEE BELOW Normal [facility] Comment on above: Result Comment: 3.3 - 4.4 LOW RISK 4.4 - 7.1 AVERAGE RISK 7.1 - 11.0 MODERATE RISK >11.0 HIGH RISK Performed By: #### U TIFFANIE, MG, RENAL #### [facility] [address] [address] [address] Nunu Borges Cholesterol [Mass/Vol] 152 mg/dL Normal <=200 [facility] Comment on above: Performed By: #### U TIFFANIE, MG, RENAL #### [facility] [address] [address] [address] Nunu Borges Cholesterol in HDL [Mass/Vol] 77 mg/dL Critically high 40-60 [facility] Comment on above: Performed By: #### U TIFFANIE, MG, RENAL #### [facility] [address] [address] [address] Nunu Borges Cholesterol in LDL [Mass/Vol] 63.2 mg/dL Normal [facility] Comment on above: Performed By: #### U TIFFANIE, MG, RENAL #### [facility] [id number] Nunu Borges Cholesterol.total/Ch olesterol in HDL [Mass ratio] 2.0 {ratio} Normal [facility] Comment on above: Performed By: #### U TIFFANIE, MG, RENAL #### [facility] [id number] Nunu Borges HDL NORMAL > or = 60 mg/dl - LOW CARDIOVASCULAR RISK <40 mg/dl - HIGH CARDIOVASCULAR RISK Normal [facility] Comment on above: Performed By: #### U TIFFANIE, MG, RENAL #### [facility] [id number] Nunu Borges LDL CALC NORMAL SEE BELOW Normal [facility] Comment on above: Result Comment: <100 mg/dl OPTIMAL 100 - 129 mg/dl NEAR OR ABOVE OPTIMAL 130 - 159 mg/dl BORDERLINE HIGH 160 - 189 mg/dl HIGH >190 mg/dl VERY HIGH Performed By: #### U TIFFANIE, MG, RENAL #### [facility] [address] [address] [address] Nunu Borges Triglyceride [Mass/Vol] 59 mg/dL Normal <=150 [facility] Comment on above: Performed By: #### U TIFFANIE, MG, RENAL #### [facility] [address] [address] [address] Nunu Borges VLDL CALC 11.8 mg/dL Normal [facility] Comment on above: Performed By: #### U TIFFANIE, MG, RENAL #### [facility] [address] [address] [address] Nunu Borges LIVER PROFILEon 08-31-2022 Albumin/Globulin [Mass ratio] 1.1 {ratio} Normal [facility] Comment on above: Performed By: #### U TIFFANIE, MG, RENAL #### [facility] [address] [address] [address] Nunu Borges ALP [Catalytic activity/Vol] 129 U/L Critically high 46-116 [facility] Comment on above: Performed By: #### U TIFFANIE, MG, RENAL #### [facility] [address] [address] [address] Nunu Borges ALT [Catalytic activity/Vol] 32 U/L Normal 14-59 [facility] Comment on above: Performed By: #### U TIFFANIE, MG, RENAL #### [facility] [address] [address] [address] Nunu Borges AST [Catalytic activity/Vol] 20 U/L Normal 15-37 [facility] Comment on above: Performed By: #### U TIFFANIE, MG, RENAL #### [facility] [address] [address] [address] Nunu Borges BILI, CONJUGATED 0.2 mg/dL Normal 0.0-0.2 [facility] Comment on above: Performed By: #### U TIFFANIE, MG, RENAL #### [facility] [address] [place] [address] Dr. Nunu Borges Bilirubin [Mass/Vol] 0.8 mg/dL Normal 0.2-1.0 [facility] Comment on above: Performed By: #### U TIFFANIE, MG, RENAL #### [facility] [address] [place] [address] Dr. Nunu Borges Globulin (S) [Mass/Vol] 3.6 g/dL Normal [facility] Comment on above: Performed By: #### U TIFFANIE, MG, RENAL #### [facility] [address] [place] [address] Dr. Nunu Borges Protein [Mass/Vol] 7.5 g/dL Normal 6.4-8.2 [facility] Comment on above: Performed By: #### U TIFFANIE, MG, RENAL #### [facility] [address] [place] [address] Dr. Nunu Borges MAGNESIUMon 08-31-2022 Magnesium [Mass/Vol] 1.8 mg/dL Normal 1.8-2.4 [facility] Comment on above: Performed By: #### U TIFFANIE, MG, RENAL #### [facility] [address] [place] [address] Dr. Nunu Borges MICROALBUMIN, RAND URon 08-08 mALB <1.3 Normal <=30.0 [facility] Comment on above: Performed By: #### U TIFFANIE, MG, RENAL #### [facility] [address] [place] [address] Dr. Nunu Borges PROF CHEM 8 (BAS METB)on Anion gap [Moles/Vol] 14.3 mmol/L Normal [facility] Comment on above: Performed By: #### U TIFFANIE, MG, RENAL #### [facility] [address] [place] [address] Dr. Nunu Borges CO2 [Moles/Vol] 27.7 mmol/L Normal 21.0-32.0 [facility] Comment on above: Performed By: #### U TIFFANIE, MG, RENAL #### [facility] [address] [address] [address] Nunu Borges Glucose [Mass/Vol] 119 mg/dL Critically high 74-106 T [facility] Comment on above: Performed By: #### U TIFFANIE, MG, RENAL #### [facility] [address] [address] [address] Nunu Borges Urea nitrogen/Creatinine [Mass ratio] 22.7 mg/mg Normal [facility] Comment on above: Performed By: #### U TIFFANIE, MG, RENAL #### [facility] [address] [address] [address] Nunu Borges RENAL FUNCTION PANELon 08-31 Albumin [Mass/Vol] 3.9 g/dL Normal 3.4-5.0 [facility] Comment on above: Performed By: #### U TIFFANIE, MG, RENAL #### [facility] [address] [address] [address] Nunu Borges Calcium [Mass/Vol] 9.7 mg/dL Normal 8.5-10.1 [facility] Comment on above: Performed By: #### U TIFFANIE, MG, RENAL #### [facility] [address] [address] [address] Nunu Borges Chloride [Moles/Vol] 99 mmol/L Normal 98-107 [facility] Comment on above: Performed By: #### U TIFFANIE, MG, RENAL #### [facility] [address] [address] [address] Nunu Borges CO2 [Moles/Vol] 28.0 mmol/L Normal 21.0-32.0 [facility] Comment on above: Performed By: #### U TIFFANIE, MG, RENAL #### [facility] [address] [address] [address] Nunu Borges Creatinine [Mass/Vol] 1.32 mg/dL Critically high 0.55-1.02 [facility] Comment on above: Performed By: #### U TIFFANIE, MG, RENAL #### [facility] [address] [address] [address] Nunu Borges EGFR-AF [place] 49 mL/min/1.73m2 Critically low >=60 [facility] Comment on above: Performed By: #### U TIFFANIE, MG, RENAL #### [facility] [address] [place] [address] Dr. Nunu Borges EGFR-NON AF [place] 40 mL/min/1.73m2 Critically low >=60 [facility] Comment on above: Performed By: #### U TIFFANIE, MG, RENAL #### [facility] [address] [place] [address] Dr. Nunu Borges Glucose [Mass/Vol] 118 mg/dL Critically high 74-106 [facility] Comment on above: Performed By: #### U TIFFANIE, MG, RENAL #### [facility] [address] [place] [address] Dr. Nunu Borges Phosphate [Mass/Vol] 3.6 mg/dL Normal 2.6-4.7 [facility] Comment on above: Performed By: #### U TIFFANIE, MG, RENAL #### [facility] [address] [place] [address] Dr. Nunu Borges Potassium [Moles/Vol] 4.0 mmol/L Normal 3.5-5.1 [facility] Comment on above: Performed By: #### U TIFFANIE, MG, RENAL #### [facility] [address] [place] [address] Dr. Nunu Borges Sodium [Moles/Vol] 137 mmol/L Normal 136-145 [facility] Comment on above: Performed By: #### U TIFFANIE, MG, RENAL #### [facility] [address] [place] [address] Dr. Nunu Borges Urea nitrogen [Mass/Vol] 30.0 mg/dL Critically high 7.0-18.0 [facility] Comment on above: Performed By: #### U TIFFANIE, MG, RENAL #### [facility] [address] [place] [address] Dr. Nunu Borges UA RANDOM W/MICROSCOPICon BACTERIA NONE SEEN Normal NONE SEEN [facility] Comment on above: Performed By: #### U AMIC #### [facility] [address] [place] [address] Dr. Nunu Borges Bilirubin Ql (U) Negative Normal NEGATIVE [facility] Comment on above: Performed By: #### U AMIC #### [facility] [address] [address] [address] Nunu Borges CAST NONE SEEN Normal NONE SEEN [facility] Comment on above: Performed By: #### U AMIC #### [facility] [address] [address] [address] Nunu Borges Clarity (U) CLEAR Normal CLEAR [facility] Comment on above: Performed By: #### U AMIC #### [facility] [address] [address] [address] Nunu Borges Color (U) LT. YELLOW Normal YELLOW [facility] Comment on above: Performed By: #### U AMIC #### [facility] [address] [place] [address] Dr. Nunu Borges Crystals LM Nom (Urine sed) NONE SEEN Normal NONE SEEN [facility] Comment on above: Performed By: #### U AMIC #### [facility] [address] [place] [address] Dr. Nunu Borges Epithelial cells LM Ql (Urine sed) FEW Abnormal NONE SEEN /RARE [facility] Comment on above: Performed By: #### U AMIC #### [facility] [address] [place] [address] Dr. Nunu Borges Glucose Ql (U) Negative Normal NEGATIVE [facility] Comment on above: Performed By: #### U AMIC #### [facility] [address] [place] [address] Dr. Nunu Borges Hemoglobin Ql (U) Negative Normal NEGATIVE [facility] Comment on above: Performed By: #### U AMIC #### [facility] [address] [place] [address] Dr. Nunu Borges Ketones Ql (U) Negative Normal NEGATIVE [facility] Comment on above: Performed By: #### U AMIC #### [facility] [address] [place] [address] Dr. Nunu Borges LEUKOCYTES TRACE Abnormal NEGATIVE [facility] Comment on above: Performed By: #### U AMIC #### [facility] [address] [address] [address] Nunu Borges MUCOUS NONE SEEN Normal NONE SEEN [facility] Comment on above: Performed By: #### U AMIC #### [facility] [address] [address] [address] Nunu Borges Nitrite Ql (U) Negative Normal NEGATIVE [facility] Comment on above: Performed By: #### U AMIC #### [facility] [address] [place] [address] Dr. Nunu Borges pH (U) 6.0 [pH] Normal 5-9 [facility] Comment on above: Performed By: #### U AMIC #### [facility] [address] [place] [address] Dr. Nunu Borges RBC NONE SEEN Abnormal 0-2 [facility] Comment on above: Performed By: #### U AMIC #### [facility] [address] [place] [address] Dr. Nunu Borges SPEC GRAVITY 1.015 Normal 1.005-<=1.025 [facility] Comment on above: Performed By: #### U AMIC #### [facility] [address] [place] [address] Dr. Nunu Borges UA PROTEIN Negative Normal NEGATIVE/ TRACE [facility] Comment on above: Performed By: #### U AMIC #### [facility] [address] [place] [address] Dr. Nunu Borges Urobilinogen Qn (U) 0.2 {Myriam'U}/dL Normal 0.2 - 1. 0 [facility] Comment on above: Performed By: #### U AMIC #### [facility] [address] [place] [address] Dr. Nunu Borges WBC 2-5 Abnormal NONE SEEN [facility] Comment on above: Performed By: #### U AMIC #### [facility] [address] [place] [address] Dr. Nunu Borges URIC ACID SERUMon 08-31-2022 Urate [Mass/Vol] 6.3 mg/dL Critically high 2.6-6.0 [facility] Comment on above: Performed By: #### U TIFFANIE, MG, RENAL #### [facility] [address] [place] [address] Dr. Nunu Borges URINE T PROTEIN CREAT RATIOo n 08-31-2022 Protein (U) [Mass/Vol] 13.3 mg/dL Critically high <=12.0 [facility] Comment on above: Performed By: #### U TIFFANIE, MG, RENAL #### [facility] [address] [place] [address] Dr. Nunu Borges UR PROT CREAT RAT 0.11 Normal [facility] Comment on above: Performed By: #### U TIFFANIE, MG, RENAL #### [facility] [address] [place] [address] Dr. Nunu Borges URINE CREAT 121.05 mg/dL Normal 20.00-300.00 [facility] Comment on above: Performed By: #### U TIFFANIE, MG, RENAL #### [facility] [address] [place] [address] Dr. Nunu Borges VITAMIN D 25 OHon 08-31-2022 VIT D 25-OH 79.7 ng/mL Normal [facility] Comment on above: Performed By: #### U TIFFANIE, MG, RENAL #### [facility] [address] [place] [address] Dr. Nunu Borges VIT D RANGES SEE BELOW Normal [facility] Comment on above: Result Comment: <20 ng/mL Vit D deficient 20 - <30 ng/mL Vit D insufficient 30 - 100 ng/mL Vit D sufficient >100 ng/mL Potential Toxicity Performed By: #### U TIFFANIE, MG, RENAL #### [facility] [address] [place] [address] Dr. Nunu Borges POINT OF CARE GLUCOSEon 04- Glucose [Mass/Vol] 132 mg/dL Critically high 74-106 T [facility] Comment on above: Performed By: #### U AMIC #### [facility] [address] [place] [address] Dr. Nunu Borges PTH INTACTon 02-15-2022 PTH, Intact 36 pg/mL Normal 15-65 [facility] Comment on above: Performed By: #### U TIFFANIE, MG, RENAL #### [facility] [address] [place] [address] Dr. Nunu Borges UA RANDOM W/MICROSCOPICon BACTERIA TRACE Abnormal NONE SEEN [facility] Comment on above: Performed By: #### U AMIC #### [facility] [address] [place] [address] Dr. Nunu Borges Bilirubin Ql (U) Negative Normal NEGATIVE [facility] Comment on above: Performed By: #### U AMIC #### [facility] [address] [place] [address] Dr. Nunu Borges CAST NONE SEEN Normal NONE SEEN [facility] Comment on above: Performed By: #### U AMIC #### [facility] [address] [place] [address] Dr. Nunu Borges Clarity (U) CLEAR Normal CLEAR [facility] Comment on above: Performed By: #### U AMIC #### [facility] [address] [place] [address] Dr. Nunu Borges Color (U) LT. YELLOW Normal YELLOW [facility] Comment on above: Performed By: #### U AMIC #### [facility] [address] [place] [address] Dr. Nunu Borges Crystals LM Nom (Urine sed) NONE SEEN Normal NONE SEEN [facility] Comment on above: Performed By: #### U AMIC #### [facility] [address] [place] [address] Dr. Nunu Borges Epithelial cells LM Ql (Urine sed) FEW Abnormal NONE SEEN /RARE [facility] Comment on above: Performed By: #### U AMIC #### [facility] [address] [place] [address] Dr. Nunu Borges Glucose Ql (U) Negative Normal NEGATIVE [facility] Comment on above: Performed By: #### U AMIC #### [facility] [address] [place] [address] Dr. Nunu Borges Hemoglobin Ql (U) Negative Normal NEGATIVE [facility] Comment on above: Performed By: #### U AMIC #### [facility] [address] [address] [address] Nunu Borges Ketones Ql (U) Negative Normal NEGATIVE [facility] Comment on above: Performed By: #### U AMIC #### [facility] [address] [address] [address] Nunu Borges LEUKOCYTES SMALL Abnormal NEGATIVE [facility] Comment on above: Performed By: #### U AMIC #### [facility] [address] [address] [address] Nunu Borges MUCOUS NONE SEEN Normal NONE SEEN [facility] Comment on above: Performed By: #### U AMIC #### [facility] [address] [place] [address] Dr. Nunu Borges Nitrite Ql (U) Negative Normal NEGATIVE [facility] Comment on above: Performed By: #### U AMIC #### [facility] [address] [address] [address] Nunu Borges pH (U) 7.0 [pH] Normal 5-9 [facility] Comment on above: Performed By: #### U AMIC #### [facility] [address] [address] [address] Nunu Borges RBC NONE SEEN Abnormal 0-2 [facility] Comment on above: Performed By: #### U AMIC #### [facility] [address] [address] [address] Nunu Borges SPEC GRAVITY 1.010 Normal 1.005-<=1.025 [facility] Comment on above: Performed By: #### U AMIC #### [facility] [address] [address] [address] Nunu Borges UA PROTEIN Negative Normal NEGATIVE/ TRACE [facility] Comment on above: Performed By: #### U AMIC #### [facility] [address] [place] [address] Dr. Nunu Borges Urobilinogen Qn (U) 0.2 {Myriam'U}/dL Normal 0.2 - 1. 0 [facility] Comment on above: Performed By: #### U AMIC #### [facility] [address] [address] [address] Nunu Borges WBC 5-10 Abnormal NONE SEEN [facility] Comment on above: Performed By: #### U AMIC #### [facility] [address] [address] [address] Nunu Borges FERRITINon 02-13-2022 Ferritin [Mass/Vol] 72.0 ng/mL Normal 8.0-252.0 [facility] Comment on above: Performed By: #### U TIFFANIE, MG, RENAL #### [facility] [address] [address] [address] Nunu Borges GLYCOHEMOGLOBIN A1Con 2021 ADA RECOMMENDATION SEE BELOW Normal [facility] Comment on above: Result Comment: ADA RECOMMENDED LIMIT 4.0 - 6.0 ADA THERAPEUTIC TARGET < 7.0 ACTION SUGGESTED > 7.0 Performed By: #### A 1C #### [facility] [address] [place] [address] Dr. Nunu Borges Glucose [Mass/Vol] 143 mg/dL Normal [facility] Comment on above: Performed By: #### A 1C #### [facility] [address] [place] [address] Dr. Nunu Borges HbA1c (Bld) [Mass fraction] 6.6 % Critically high 4.5-6.2 [facility] Comment on above: Performed By: #### A 1C #### [facility] [address] [address] [address] Nunu Borges HEMOGRAM AND PLATELon 2021 Hematocrit (Bld) [Volume fraction] 36.1 % Normal 36.0-48.0 [facility] Comment on above: Performed By: #### U TIFFANIE, MG, RENAL #### [facility] [address] [place] [address] Dr. Nunu Borges Hemoglobin (Bld) [Mass/Vol] 11.5 g/dL Critically low 12.0-16.0 [facility] Comment on above: Performed By: #### U TIFFANIE, MG, RENAL #### [facility] [address] [address] [address] Nunu Borges MCH (RBC) [Entitic mass] 29.1 pg Normal 26.7-34.0 [facility] Comment on above: Performed By: #### U TIFFANIE, MG, RENAL #### [facility] [address] [place] [address] Dr. Nunu Borges MCHC (RBC) [Mass/Vol] 31.9 g/dL Normal 29.9-35.2 [facility] Comment on above: Performed By: #### U TIFFANIE, MG, RENAL #### [facility] [address] [place] [address] Dr. Nunu Borges MCV (RBC) [Entitic vol] 91.4 fL Normal 81.0-99.0 [facility] Comment on above: Performed By: #### U TIFFANIE, MG, RENAL #### [facility] [address] [place] [address] Dr. Nunu Borges PLT 348 103/ul Normal 150-450 [facility] Comment on above: Performed By: #### U TIFFANIE, MG, RENAL #### [facility] [address] [place] [address] Dr. Nunu Borges RBC 3.95 106/ul Critically low 4.20-5.40 [facility] Comment on above: Performed By: #### U TIFFANIE, MG, RENAL #### [facility] [address] [place] [address] Dr. Nunu Borges WBC 4.4 103/ul Normal 4.0-11.0 [facility] Comment on above: Performed By: #### U TIFFANIE, MG, RENAL #### [facility] [address] [place] [address] Dr. Nunu Borges IRON AND TIBCon 02-13-2022 % SATURATION 17.1 % Normal [facility] Comment on above: Performed By: #### U TIFFANIE, MG, RENAL #### [facility] [address] [place] [address] Dr. Nunu Borges Iron [Mass/Vol] 56.0 ug/dL Normal 50.0-170.0 [facility] Comment on above: Performed By: #### U TIFFANIE, MG, RENAL #### [facility] [address] [address] [address] Nunu Borges TIBC DIRECT 327.0 ug/dL Normal 250.0-450.0 [facility] Comment on above: Performed By: #### U TIFFANIE, MG, RENAL #### [facility] [address] [place] [address] Dr. Nunu Borges MAGNESIUMon 02-13-2022 Magnesium [Mass/Vol] 1.8 mg/dL Normal 1.8-2.4 [facility] Comment on above: Performed By: #### U TIFFANIE, MG, RENAL #### [facility] [address] [place] [address] Dr. Nunu Borges RENAL FUNCTION PANELon 02-13 Albumin [Mass/Vol] 3.7 g/dL Normal 3.4-5.0 [facility] Comment on above: Performed By: #### U TIFFANIE, MG, RENAL #### [facility] [address] [place] [address] Dr. Nunu Borges Calcium [Mass/Vol] 9.4 mg/dL Normal 8.5-10.1 [facility] Comment on above: Performed By: #### U TIFFANIE, MG, RENAL #### [facility] [address] [place] [address] Dr. Nunu Borges Chloride [Moles/Vol] 100 mmol/L Normal 98-107 [facility] Comment on above: Performed By: #### U TIFFANIE, MG, RENAL #### [facility] [address] [place] [address] Dr. Nunu Borges CO2 [Moles/Vol] 30.0 mmol/L Normal 21.0-32.0 [facility] Comment on above: Performed By: #### U TIFFANIE, MG, RENAL #### [facility] [address] [place] [address] Dr. Nunu Borges Creatinine [Mass/Vol] 1.31 mg/dL Critically high 0.55-1.02 [facility] Comment on above: Performed By: #### U TIFFANIE, MG, RENAL #### [facility] [address] [place] [address] Dr. Nunu Borges EGFR-AF [place] 49 mL/min/1.73m2 Critically low >=60 [facility] Comment on above: Performed By: #### U TIFFANIE, MG, RENAL #### [facility] [address] [place] [address] Dr. Nunu Borges EGFR-NON AF [place] 40 mL/min/1.73m2 Critically low >=60 [facility] Comment on above: Performed By: #### U TIFFANIE, MG, RENAL #### [facility] [address] [place] [address] Dr. Nunu Borges Glucose [Mass/Vol] 98 mg/dL Normal 74-106 [facility] Comment on above: Performed By: #### U TIFFANIE, MG, RENAL #### [facility] [address] [place] [address] Dr. Nunu Borges Phosphate [Mass/Vol] 3.0 mg/dL Normal 2.6-4.7 [facility] Comment on above: Performed By: #### U TIFFANIE, MG, RENAL #### [facility] [address] [place] [address] Dr. Nunu Borges Potassium [Moles/Vol] 4.4 mmol/L Normal 3.5-5.1 [facility] Comment on above: Performed By: #### U TIFFANIE, MG, RENAL #### [facility] [address] [place] [address] Dr. Nunu Borges Sodium [Moles/Vol] 133 mmol/L Critically low 136-145 [facility] Comment on above: Performed By: #### U TIFFANIE, MG, RENAL #### [facility] [address] [place] [address] Dr. Nunu Borges Urea nitrogen [Mass/Vol] 23.0 mg/dL Critically high 7.0-18.0 [facility] Comment on above: Performed By: #### U TIFFANEI, MG, RENAL #### [facility] [address] [place] [address] Dr. Nunu Borges URIC ACID SERUMon 11-07-2022 Urate [Mass/Vol] 5.9 mg/dL Normal 2.6-6.0 [facility] Comment on above: Performed By: #### U TIFFANIE, MG, RENAL #### [facility] [address] [place] [address] Dr. Nunu Borges VITAMIN D 25 OHon 02-13-2022 VIT D 25-OH 70.3 ng/mL Normal [facility] Comment on above: Performed By: #### U TIFFANIE, MG, RENAL #### [facility] [address] [place] [address] Dr. Nunu Borges VIT D RANGES SEE BELOW Normal [facility] Comment on above: Result Comment: <20 ng/mL Vit D deficient 20 - <30 ng/mL Vit D insufficient 30 - 100 ng/mL Vit D sufficient >100 ng/mL Potential Toxicity Performed By: #### U TIFFANIE, MG, RENAL #### [facility] [address] [place] [address] Dr. Nunu Borges CBC AUTO DIFFon 01-27-2022 BASO # 0.0 103/ul Normal 0.0-0.1 [facility] Comment on above: Performed By: #### U TIFFANIE, MG, RENAL #### [facility] [address] [place] [address] Dr. Nunu Borges Basophils/100 WBC (Bld) 0.2 % Normal 0.2-2.0 [facility] Comment on above: Performed By: #### U TIFFANIE, MG, RENAL #### [facility] [address] [place] [address] Dr. Nunu Borges EO # 0.1 103/ul Normal 0.0-0.7 [facility] Comment on above: Performed By: #### U TIFFANIE, MG, RENAL #### [facility] [address] [place] [address] Dr. Nunu Borges Eosinophils/100 WBC (Bld) 0.9 % Normal 0.9-7.0 [facility] Comment on above: Performed By: #### U TIFFANIE, MG, RENAL #### [facility] [address] [place] [address] Dr. Nunu Borges Erythrocyte distribution width (RBC) [Ratio] 12.5 % Normal 11.0-15.0 [facility] Comment on above: Performed By: #### U TIFFANIE, MG, RENAL #### [facility] [address] [place] [address] Dr. Nunu Borges Hematocrit (Bld) [Volume fraction] 32.5 % Critically low 36.0-48.0 [facility] Comment on above: Performed By: #### U TIFFANIE, MG, RENAL #### [facility] [address] [place] [address] Dr. Nunu Borges Hemoglobin (Bld) [Mass/Vol] 10.9 g/dL Critically low 12.0-16.0 [facility] Comment on above: Performed By: #### U TIFFANIE, MG, RENAL #### [facility] [address] [place] [address] Dr. Nunu Borges IG # 0.14 10e3/ul Critically high 0.00-0.03 [facility] Comment on above: Performed By: #### U TIFFANIE, MG, RENAL #### [facility] [address] [place] [address] Dr. Nunu Borges IG % 1.5 % Critically high 0.0-0.5 [facility] Comment on above: Performed By: #### U TIFFANIE, MG, RENAL #### [facility] [address] [place] [address] Dr. Nunu Borges LYMPH # 1.5 103/ul Normal 1.2-3.8 [facility] Comment on above: Performed By: #### U TIFFANIE, MG, RENAL #### [facility] [address] [place] [address] Dr. Nunu Borges Lymphocytes/100 WBC (Bld) 15.5 % Critically low 20.5-60.0 [facility] Comment on above: Performed By: #### U TIFFANIE, MG, RENAL #### [facility] [address] [place] [address] Dr. Nunu Borges MANUAL DIFF REQ NO Normal The [facility] Comment on above: Performed By: #### U TIFFANIE, MG, RENAL #### [facility] [address] [place] [address] Dr. Nunu Borges MCH (RBC) [Entitic mass] 29.6 pg Normal 26.7-34.0 [facility] Comment on above: Performed By: #### U TIFFANIE, MG, RENAL #### [facility] [address] [place] [address] Dr. Nunu Borges MCHC (RBC) [Mass/Vol] 33.5 g/dL Normal 29.9-35.2 [facility] Comment on above: Performed By: #### U TIFFANIE, MG, RENAL #### [facility] [address] [place] [address] Dr. Nunu Borges MCV (RBC) [Entitic vol] 88.3 fL Normal 81.0-99.0 [facility] Comment on above: Performed By: #### U TIFFANIE, MG, RENAL #### [facility] [address] [place] [address] Dr. Nunu Borges MONO # 1.2 103/ul Critically high 0.3-0.8 [facility] Comment on above: Performed By: #### U TIFFANIE, MG, RENAL #### [facility] [address] [place] [address] Dr. Nunu Borges Monocytes/100 WBC (Bld) 12.9 % Critically high 1.7-12.0 [facility] Comment on above: Performed By: #### U TIFFANIE, MG, RENAL #### [facility] [address] [place] [address] Dr. Nunu Borges NEUT # 6.5 103/ul Normal 1.4-6.5 [facility] Comment on above: Performed By: #### U TIFFANIE, MG, RENAL #### [facility] [address] [place] [address] Dr. Nunu Borges Neutrophils/100 WBC (Bld) 69.0 % Normal 43.0-75.0 [facility] Comment on above: Performed By: #### U TIFFANIE, MG, RENAL #### [facility] [address] [place] [address] Dr. Nunu Borges Platelet mean volume (Bld) [Entitic vol] 11.8 fL Normal 9.5-13.5 [facility] Comment on above: Performed By: #### U TIFFANIE, MG, RENAL #### [facility] [address] [address] [address] Nunu Borges PLT 239 103/ul Normal 150-450 [facility] Comment on above: Performed By: #### U TIFFANIE, MG, RENAL #### [facility] [address] [address] [address] Nunu Borges RBC 3.68 106/ul Critically low 4.20-5.40 [facility] Comment on above: Performed By: #### U TIFFANIE, MG, RENAL #### [facility] [address] [address] [address] Nunu Borges WBC 9.4 103/ul Normal 4.0-11.0 [facility] Comment on above: Performed By: #### U TIFFANIE, MG, RENAL #### [facility] [address] [address] [address] Nunu Borges POINT OF CARE GLUCOSEon 01-08 Glucose [Mass/Vol] 226 mg/dL Critically high 74-106 [facility] Comment on above: Performed By: #### U TIFFANIE, MG, RENAL #### [facility] [address] [place] [address] Dr. Nunu Borges PROF CHEM 8 (BAS METB)on Anion gap [Moles/Vol] 10.5 mmol/L Normal [facility] Comment on above: Performed By: #### U TIFFANIE, MG, RENAL #### [facility] [address] [address] [address] Nunu Borges Calcium [Mass/Vol] 8.2 mg/dL Critically low 8.5-10.1 [facility] Comment on above: Performed By: #### U TIFFANIE, MG, RENAL #### [facility] [address] [address] [address] Nunu Borges Chloride [Moles/Vol] 103 mmol/L Normal 98-107 [facility] Comment on above: Performed By: #### U TIFFANIE, MG, RENAL #### [facility] [address] [address] [address] Nunu Borges CO2 [Moles/Vol] 26.0 mmol/L Normal 21.0-32.0 [facility] [place] Comment on above: Performed By: #### U TIFFANIE, MG, RENAL #### [facility] [address] [address] [address] Nunu Borges Creatinine [Mass/Vol] 1.04 mg/dL Critically high 0.55-1.02 [facility] Comment on above: Performed By: #### U TIFFANIE, MG, RENAL #### [facility] [address] [address] [address] Nunu Borges EGFR-AF [place] >60 Normal >=60 [facility] [place] Comment on above: Performed By: #### U TIFFANIE, MG, RENAL #### [facility] [address] [address] [address] Nunu Borges EGFR-NON AF [place] 53 mL/min/1.73m2 Critically low >=60 [facility] Comment on above: Performed By: #### U TIFFANIE, MG, RENAL #### [facility] [address] [address] [address] Nunu Borges Glucose [Mass/Vol] 91 mg/dL Normal 74-106 [facility] Comment on above: Performed By: #### U TIFFANIE, MG, RENAL #### [facility] [address] [address] [address] Nunu Borges Potassium [Moles/Vol] 3.5 mmol/L Normal 3.5-5.1 [facility] Comment on above: Performed By: #### U TIFFANIE, MG, RENAL #### [facility] [address] [address] [address] Nunu Borges Sodium [Moles/Vol] 136 mmol/L Normal 136-145 [facility] Comment on above: Performed By: #### U TIFFANIE, MG, RENAL #### [facility] [address] [address] [address] Nunu Borges Urea nitrogen [Mass/Vol] 32.0 mg/dL Critically high 7.0-18.0 [facility] Comment on above: Performed By: #### U TIFFANIE, MG, RENAL #### [facility] [address] [place] [address] Dr. Nunu Borges Urea nitrogen/Creatinine [Mass ratio] 30.8 mg/mg Normal [facility] Comment on above: Performed By: #### U TIFFANIE, MG, RENAL #### [facility] [address] [place] [address] Dr. Nunu Borges CBC AUTO DIFFon 01-26-2022 BASO # 0.0 103/ul Normal 0.0-0.1 [facility] Comment on above: Performed By: #### C BC #### [facility] [address] [place] [address] Dr. Nunu Borges Basophils/100 WBC (Bld) 0.1 % Critically low 0.2-2.0 [facility] Comment on above: Performed By: #### C BC #### [facility] [address] [place] [address] Dr. Nunu Borges EO # 0.1 103/ul Normal 0.0-0.7 [facility] Comment on above: Performed By: #### C BC #### [facility] [address] [place] [address] Dr. Nunu Borges Eosinophils/100 WBC (Bld) 0.4 % Critically low 0.9-7.0 [facility] Comment on above: Performed By: #### C BC #### [facility] [address] [place] [address] Dr. Nunu Borges Erythrocyte distribution width (RBC) [Ratio] 12.2 % Normal 11.0-15.0 [facility] Comment on above: Performed By: #### C BC #### [facility] [address] [place] [address] Dr. Nunu Borges Hematocrit (Bld) [Volume fraction] 36.7 % Normal 36.0-48.0 [facility] Comment on above: Performed By: #### C BC #### [facility] [address] [place] [address] Dr. Nunu Borges Hemoglobin (Bld) [Mass/Vol] 12.1 g/dL Normal 12.0-16.0 [facility] Comment on above: Performed By: #### C BC #### [facility] [address] [place] [address] Dr. Nunu Borges IG # 0.42 10e3/ul Critically high 0.00-0.03 [facility] Comment on above: Performed By: #### C BC #### [facility] [address] [place] [address] Dr. Nunu Borges IG % 2.4 % Critically high 0.0-0.5 [facility] Comment on above: Performed By: #### C BC #### [facility] [address] [place] [address] Dr. Nunu Borges LYMPH # 0.8 103/ul Critically low 1.2-3.8 [facility] Comment on above: Performed By: #### C BC #### [facility] [address] [place] [address] Dr. Nunu Borges Lymphocytes/100 WBC (Bld) 4.5 % Critically low 20.5-60.0 [facility] Comment on above: Performed By: #### C BC #### [facility] [address] [place] [address] Dr. Nunu Borges MANUAL DIFF REQ NO Normal [facility] Comment on above: Performed By: #### C BC #### [facility] [address] [place] [address] Dr. Nunu Borges MCH (RBC) [Entitic mass] 29.2 pg Normal 26.7-34.0 [facility] Comment on above: Performed By: #### C BC #### [facility] [address] [place] [address] Dr. Nunu Borges MCHC (RBC) [Mass/Vol] 33.0 g/dL Normal 29.9-35.2 [facility] Comment on above: Performed By: #### C BC #### [facility] [address] [place] [address] Dr. Nunu Borges MCV (RBC) [Entitic vol] 88.6 fL Normal 81.0-99.0 [facility] Comment on above: Performed By: #### C BC #### [facility] [address] [place] [address] Dr. Nunu Borges MONO # 1.4 103/ul Critically high 0.3-0.8 [facility] Comment on above: Performed By: #### C BC #### [facility] [address] [place] [address] Dr. Nunu Borges Monocytes/100 WBC (Bld) 7.6 % Normal 1.7-12.0 [facility] Comment on above: Performed By: #### C BC #### [facility] [address] [place] [address] Dr. Nunu Borges NEUT # 15.0 103/ul Critically high 1.4-6.5 [facility] [place] Comment on above: Performed By: #### C BC #### [facility] [address] [place] [address] Dr. Nunu Borges Neutrophils/100 WBC (Bld) 85.0 % Critically high 43.0-75.0 [facility] Comment on above: Performed By: #### C BC #### [facility] [address] [place] [address] Dr. Nunu Borges Platelet mean volume (Bld) [Entitic vol] 11.5 fL Normal 9.5-13.5 [facility] Comment on above: Performed By: #### C BC #### [facility] [address] [place] [address] Dr. Nunu Borges PLT 277 103/ul Normal 150-450 [facility] Comment on above: Performed By: #### C BC #### [facility] [address] [place], [place] [id number] Dr. Nunu Borges RBC 4.14 106/ul Critically low 4.20-5.40 [facility] Comment on above: Performed By: #### C BC #### [facility] [address] [place] [address] Dr. Nunu Borges WBC 17.7 103/ul Critically high 4.0-11.0 [facility] Comment on above: Performed By: #### C BC #### [facility] [address] [address] [address] Nunu Borges CULTURE BLOODon 01-26-2022 Microscopic examination of blood, culture Culture Observations: NO GROWTH AT 5 DAYS. Normal [facility] Comment on above: Performed By: #### U AMIC #### [facility] [address] [place] [address] Dr. Nunu Borges Microscopic examination of blood, culture Culture Observations: NO GROWTH AT 5 DAYS. Normal [facility] Comment on above: Performed By: #### U AMIC #### [facility] [address] [place] [address] Dr. Nunu Borges CULTURE URINEon 01-26-2022 CULTURE URINE Culture Observations: LIGHT GROWTH OF MIXED GENITAL GABRIELLE. NO POTENTIAL PATHOGENS SEEN. Normal [facility] Comment on above: Performed By: #### U AMIC #### [facility] [address] [place] [address] Dr. Nunu Borges Covid-19 PCR (CVDTB[facility])on 01-08 SARS-CoV-2 (COVID-19) RNA GREG+probe Ql (Unsp spec) Detected Critically abnormal NOT DETECTED [facility] Comment on above: Result Comment: This test is not yet approved or cleared by the [place] FDA. When there are no FDA-approved or cleared tests available, and other criteria are met, FDA can make tests available under an emergency access mechanism called an Emergency Use Authorization (EUA). The EUA for this test is supported by the Superintendent Stevedoring of Health and Human Service's declaration that [...] used). Performed By: #### C VDTBH #### [facility] [address] [place] [address] Dr. Nunu Borges ER URINE PROFILEon 10-20-202 2 Bilirubin Ql (U) Negative Normal NEGATIVE [facility] Comment on above: Performed By: #### U AMIC #### [facility] [address] [address] [address] Nunu Borges Clarity (U) CLEAR Normal CLEAR [facility] Comment on above: Performed By: #### U AMIC #### [facility] [address] [address] [address] Nunu Borges Color (U) LT. YELLOW Normal YELLOW [facility] Comment on above: Performed By: #### U AMIC #### [facility] [address] [address] [address] Nunu Borges ERUALESSIA A micrscopic examination will be performed if indicated. Normal [facility] Comment on above: Performed By: #### U AMIC #### [facility] [address] [place] [address] Dr. Nunu Borges Glucose Ql (U) Negative Normal NEGATIVE [facility] Comment on above: Performed By: #### U AMIC #### [facility] [address] [place] [address] Dr. Nunu Borges Hemoglobin Ql (U) Negative Normal NEGATIVE [facility] Comment on above: Performed By: #### U AMIC #### [facility] [address] [address] [address] Nunu Borges Ketones Ql (U) Negative Normal NEGATIVE [facility] Comment on above: Performed By: #### U AMIC #### [facility] [address] [address] [address] Nunu Borges LEUKOCYTES MODERATE Abnormal NEGATIVE [facility] Comment on above: Performed By: #### U AMIC #### [facility] [address] [address] [address] Nunu Borges Nitrite Ql (U) Negative Normal NEGATIVE [facility] Comment on above: Performed By: #### U AMIC #### [facility] [address] [place] [address] Dr. Nunu Borges pH (U) 6.0 [pH] Normal 5-9 [facility] Comment on above: Performed By: #### U AMIC #### [facility] [address] [address] [address] Nunu Borges SPEC GRAVITY 1.010 Normal 1.005-<=1.025 [facility] Comment on above: Performed By: #### U AMIC #### [facility] [address] [address] [address] Nunu Borges UA PROTEIN Negative Normal NEGATIVE/ TRACE [facility] Comment on above: Performed By: #### U AMIC #### [facility] [address] [address] [address] Nunu Borges UR MICRO IND INDICATED Normal [facility] Comment on above: Performed By: #### U AMIC #### [facility] [address] [address] [address] Nunu Borges Urobilinogen Qn (U) 0.2 {Myriam'U}/dL Normal 0.2 - 1. 0 [facility] Comment on above: Performed By: #### U AMIC #### [facility] [address] [place] [address] Dr. Nunu Borges POINT OF CARE GLUCOSEon 01-08 Glucose [Mass/Vol] 262 mg/dL Critically high 74-106 [facility] Comment on above: Performed By: #### U TIFFANIE, MG, RENAL #### [facility] [address] [place] [address] Dr. Nunu Borges PROF CHEM 8 (BAS METB)on Anion gap [Moles/Vol] 18.7 mmol/L Normal [facility] Comment on above: Performed By: #### U AMIC #### [facility] [address] [place] [address] Dr. Nunu Borges Calcium [Mass/Vol] 9.0 mg/dL Normal 8.5-10.1 [facility] Comment on above: Performed By: #### U AMIC #### [facility] [address] [place] [address] Dr. Nunu Borges Chloride [Moles/Vol] 95 mmol/L Critically low 98-107 [facility] Comment on above: Performed By: #### U AMIC #### [facility] [address] [address] [address] Nunu Borges CO2 [Moles/Vol] 20.6 mmol/L Critically low 21.0-32.0 [facility] Comment on above: Performed By: #### U AMIC #### [facility] [address] [address] [address] Nunu Borges Creatinine [Mass/Vol] 1.79 mg/dL Critically high 0.55-1.02 [facility] Comment on above: Performed By: #### U AMIC #### [facility] [address] [address] [address] Nunu Borges EGFR-AF [place] 21 mL/min/1.73m2 Critically low >=60 [facility] Comment on above: Performed By: #### U AMIC #### [facility] [address] [address] [address] Nunu Borges EGFR-NON AF [place] 18 mL/min/1.73m2 Critically low >=60 [facility] Comment on above: Performed By: #### U AMIC #### [facility] [address] [address] [address] Nunu Borges Glucose [Mass/Vol] 261 mg/dL Critically high 74-106 [facility] Comment on above: Performed By: #### U AMIC #### [facility] [address] [address] [address] Nunu Borges Potassium [Moles/Vol] 4.3 mmol/L Normal 3.5-5.1 [facility] Comment on above: Performed By: #### U AMIC #### [facility] [address] [address] [address] Nunu Borges Sodium [Moles/Vol] 130 mmol/L Critically low 136-145 [facility] Comment on above: Performed By: #### U AMIC #### [facility] [address] [address] [address] Nunu Borges Urea nitrogen [Mass/Vol] 54.0 mg/dL Critically high 7.0-18.0 [facility] Comment on above: Performed By: #### U AMIC #### [facility] [address] [place] [address] Dr. Nunu Borges Urea nitrogen/Creatinine [Mass ratio] 30.2 mg/mg Normal [facility] Comment on above: Performed By: #### U AMIC #### [facility] [address] [place] [address] Dr. Nunu Borges URINE MICROSCOPIC ONLYon BACTERIA TRACE Abnormal NONE SEEN [facility] Comment on above: Performed By: #### U AMIC #### [facility] [address] [place] [address] Dr. Nunu Borges Bacteria identified Cx Nom (U) INDICATED Normal [facility] Comment on above: Performed By: #### U AMIC #### [facility] [address] [place] [address] Dr. Nunu Borges CAST SEEN Abnormal NONE SEEN [facility] Comment on above: Performed By: #### U AMIC #### [facility] [address] [place] [address] Dr. Nunu Borges Crystals LM Nom (Urine sed) NONE SEEN Normal NONE SEEN [facility] Comment on above: Performed By: #### U AMIC #### [facility] [address] [place] [address] Dr. Nunu Borges Epithelial cells LM Ql (Urine sed) RARE Normal NONE SEEN /RARE [facility] Comment on above: Performed By: #### U AMIC #### [facility] [address] [place] [address] Dr. Nunu Borges HYALINE CAST RARE Normal [facility] Comment on above: Performed By: #### U AMIC #### [facility] [address] [place] [address] Dr. Nunu Borges MUCOUS NONE SEEN Normal NONE SEEN [facility] Comment on above: Performed By: #### U AMIC #### [facility] [address] [place] [address] Dr. Nunu Borges RBC 0-2 Normal 0-2 [facility] Comment on above: Performed By: #### U AMIC #### [facility] [address] [address] [address] Nunu Borges WBC 2-5 Abnormal NONE SEEN [facility] Comment on above: Performed By: #### U AMIC #### [facility] [address] [address] [address] Nunu Borges Covid-19 PCR ([facility])on 01-07 SARS-CoV-2 (COVID-19) RNA GREG+probe Ql (Unsp spec) Detected Critically abnormal NOT DETECTED [facility] Comment on above: Result Comment: This test is not yet approved or cleared by the [place] FDA. When there are no FDA-approved or cleared tests available, and other criteria are met, FDA can make tests available under an emergency access mechanism called an Emergency Use Authorization (EUA). The EUA for this test is supported by the Superintendent Stevedoring of Health and Human Service's declaration that [...] for this test is supported by the Superintendent Stevedoring of Health and Human Service's (HHS's) declaration [...] used). Performed By: #### C VDTBH #### [facility] [address] [address] [address] Nunu Borges MG MAMM SCREEN 3D RODERICK CADon 01-09-2022 MG MAMM SCREEN 3D RODERICK CAD Patient: LONDON COURTNEY Exam Date: 01/09/2022 : 1955 Gender:F Ordering : DR MARIBEL ALVAREZ . Admission #: [id number] Family : Order #: [id number] CLICK HERE TO VIEW EXAM RADIOLOGY REPORT [...] Treatments None Family Cancers None LOCATION: [facility] BREAST COMPOSITION: Almost entirely fatty. FINDINGS: [...] Licea MD on 01/09/2022 at 12:50 Normal [facility] Cytologyon 07-20-2020 Cytology (NOTE) INTERPRETATION Cervical material, (ThinPrep vial, Imaging-assisted review): Specimen Adequacy: Satisfactory for evaluation. - Endocervical/transfo rmation zone component present. Descriptive Diagnosis: Negative for intraepithelial lesion or malignancy. Beauty Parlor Cleaner: CARLOS Steward(ASCP) Electronically Signed Out chris/07/22/2020 Source: 1: Cervical material, (ThinPrep vial, Imaging-assisted review) Clinical History Postmenopausal Z12.4 Encounter for screening for malignant neoplasm of cervix GYNECOLOGIC CYTOLOGY REPORT Patient Name: LONDON COURTNEY [facility] Rec: [id number] Path Number: [id number] [facility] [employer] [facility] ANATOMIC PATHOLOGY [address] [place] [address]. [place], [place] [address] Normal [facility] Comment on above: Performed By: #### P PPVP #### [facility] [address] [id number] Fur Trimming Machine Operator: Jeremiah Acosta MD Main OR Intraoperative Recor handy 11-06-2017 Main OR Intraoperative Record IntraOp Document Type FTURO Summary Primary Physician: Juan Delarosa Jr., MD Finalized Date/Time: 11/06/17 12:28:35 Pt. Name: CHATOJBLONDON/Sex: 1955 Female Med Rec #: [id number] Physician: Juan Delarosa Jr., MD Financial #: [id number] Pt. Type: O Room/Bed: / Admit/Disch: 10/11/17 [...] CST, Juan Mccann Jr., MD Role Performed Telegraph Inspector - Primary Scrub - Primary Surgeon - [...] KIET Simons RN, Lou Applicable) Janel Matthew LAN MANAGER, [place] Time Out Complete 10/11/17 13:18:00 Allergies Reviewed? Yes Allergies Reviewed Self/Patient With Body Position Frog Legged Prep Area PERINIUM Prep Agents Betadine Solution Skin. Condition Intact, [place], Warm, and Dry Additional None Specimens Collected [...] Simons RN, Lou Ann 11/06/17 12:28 Normal [facility] Main OR Preoperative Recordo n 11-06-2017 Main OR Preoperative Record Holding Area Document Type FTURO Summary Primary Physician: Juan Delarosa Jr., MD Finalized Date/Time: 11/06/17 12:28:41 Pt. Name: LONDON COURTNEY Candy/Sex: 1955 Female Med Rec #: [id number] Physician: Juan Delarosa Jr., MD Financial #: [id number] Pt. Type: O Room/Bed: / Admit/Disch: 10/11/17 [...] of Pain: No Comment: Skin Integrity Intact, [place], Warm, & Dry Vitals - EU Blood Pressure 98/55 Pulse 76 bpm Respirations 18 br/min SPO2 RN Reviewed Yes Last Modified By: KIET Simons RN, Lou Ann 10/11/17 13:00:54 Finalized By: KIET Simons RN, Lou Ann Document Signatures Signed By: KIET Simons RN, Lou Ann 10/11/17 13:00 Karen Rutherford LPN 10/11/17 12:58 KIET Simons RN, Lou Ann 11/06/17 12:28 Normal [facility] Coding Summary.on 10-19-2017 Coding Summary. CODING DATE: 10/19/2017 FINAL [facility] STATUS: Home (Routine DC) PAYOR: Commercial [...] disease N18.9 Chronic kidney disease, unspecified Z79.82 assisted (current) use of aspirin Z87.891 Personal history of nicotine dependence PYMT PROC APC STAT DESCRIPTION DOCTOR NAME DATE NOTE: The code number assigned matches the documented diagnosis and / or procedure in the patient's chart. However, the narrative phrase printed from the coding software may appear abbreviated, or result in slightly different terminology. Coded By: Ellie Saldaña Date Saved: 10/19/2017 08:52 am Normal [facility] Operative Reporton 8 Operative Report Patient: [...] urine. The Urethra was dilated to: 30 Greek w/ sounds. Devices Implanted: None. Removal: Cystoscope [...] negative. This completes her hematuria workup.. Normal [facility] Comment on above: Result Comment: Elec tronically Signed By: [place] Bennett MD, Juan King.br\Date and Time Signed: 10/11/17 13:26 EDT Vital Signs Date Time Vital Sign Value Performing Clinician Facility 04-05-2023 10:00-0500 Body height 154.94 cm Ghislaine Ada Other [facility] Other 04-05-2023 10:00-0500 Body mass index (BMI) [Ratio] 29.85 kg/m2 Ghislaine Ada Other [facility] Other 04-05-2023 10:00-0500 Body temperature 97.2 [degF] Ghislaine Ada Other [facility] Other 04-05-2023 10:00-0500 Body weight 71.67 kg Ghislaine Ada Other [facility] Other 04-05-2023 10:00-0500 Diastolic blood pressure 60 mm[Hg] Ghislaine Ada Other [facility] Other 04-05-2023 10:00-0500 Respiratory rate 18 /min Ghislaine Ada Other [facility] Other 04-05-2023 10:00-0500 SaO2% (BldA) [Mass fraction] 98 % Ghislaine Ada Other [facility] Other 04-05-2023 10:00-0500 Systolic blood pressure 124 mm[Hg] Ghislaine Ada Other [facility] Other 09-07-2022 14:00-0400 Body height 154.94 cm Ghislaine Ada Other [facility] Other 09-07-2022 14:00-0400 Body mass index (BMI) [Ratio] 29.47 kg/m2 Ghislaine Ada Other [facility] Other 09-07-2022 14:00-0400 Body temperature 97.3 [degF] Ghislaine Ada Other [facility] Other 09-07-2022 14:00-0400 Body weight 70.76 kg Ghislaine Ada Other [facility] Other 09-07-2022 14:00-0400 Diastolic blood pressure 70 mm[Hg] Ghislaine Ada Other [facility] Other 09-07-2022 14:00-0400 Respiratory rate 18 /min Ghislaine Ada Other [facility] Other 09-07-2022 14:00-0400 SaO2% (BldA) [Mass fraction] 97 % Ghislaine Ada Other [facility] Other 09-07-2022 14:00-0400 Systolic blood pressure 110 mm[Hg] Ghislaine Ada Other [facility] Other 03-23-2022 11:20-0500 Body height 154.94 cm Ghislaine Ada Other [facility] Other 03-23-2022 11:20-0500 Body mass index (BMI) [Ratio] 28.75 kg/m2 Ghislaine Ada Other [facility] Other 03-23-2022 11:20-0500 Body temperature 96.2 [degF] Ghislaine Ada Other [facility] Other 03-23-2022 11:20-0500 Body weight 69.04 kg Ghislaine Ada Other [facility] Other 03-23-2022 11:20-0500 Diastolic blood pressure 80 mm[Hg] Ghislaine Ada Other [facility] Other 03-23-2022 11:20-0500 Respiratory rate 18 /min Ghislaine Ada Other [facility] Other 03-23-2022 11:20-0500 SaO2% (BldA) [Mass fraction] 96 % Ghislaine Ada Other [facility] Other 03-23-2022 11:20-0500 Systolic blood pressure 122 mm[Hg] Ghislaine Ada Other [facility] Other 09-01-2021 11:00-0400 Body height 154.94 cm Ghislaine Ada Other [facility] Other 09-01-2021 11:00-0400 Body mass index (BMI) [Ratio] 31.29 kg/m2 Ghislaine Ada Other [facility] Other 09-01-2021 11:00-0400 Body temperature 96.8 [degF] Ghislaine Ada Other [facility] Other 09-01-2021 11:00-0400 Body weight 75.12 kg Ghislaine Ada Other [facility] Other 09-01-2021 11:00-0400 Diastolic blood pressure 74 mm[Hg] Ghislaine Ada Other [facility] Other 09-01-2021 11:00-0400 Respiratory rate 18 /min Ghislaine Ada Other [facility] Other 09-01-2021 11:00-0400 SaO2% (BldA) [Mass fraction] 97 % Ghislaine Ada Other [facility] Other 09-01-2021 11:00-0400 Systolic blood pressure 130 mm[Hg] Ghislaine Ada Other [facility] Other 02-10-2021 10:20-0400 Body height 154.94 cm Ghislaine Ada Other [facility] Other 02-10-2021 10:20-0400 Body mass index (BMI) [Ratio] 30.83 kg/m2 Ghislaine Ada Other [facility] Other 02-10-2021 10:20-0400 Body temperature 96 [degF] Ghislaine Ada Other [facility] Other 02-10-2021 10:20-0400 Body weight 74.03 kg Ghislaine Ada Other [facility] Other 02-10-2021 10:20-0400 Diastolic blood pressure 74 mm[Hg] Ghislaine Ada Other [facility] Other 02-10-2021 10:20-0400 Respiratory rate 18 /min Ghislaine Ada Other [facility] Other 02-10-2021 10:20-0400 SaO2% (BldA) [Mass fraction] 94 % Ghislaine Ada Other [facility] Other 02-10-2021 10:20-0400 Systolic blood pressure 110 mm[Hg] Ghislaine Ada Other [facility] Other Encounters Encounter Date Encounter Type Care Provider Facility Start: 10-09-2023 End: 10-09-2023 ambulatory MARIBEL ALVAREZ [facility] Start: 10-01-2023 End: 10-01-2023 ambulatory SHARONA E [...] Start: 09-19-2023 End: 09-19-2023 ambulatory [facility] Start: 09-19-2023 Encounter for other preprocedural examination BROCK FISHER JR [facility] Start: 08-01-2023 End: 08-01-2023 ambulatory BROCK BENNETT Not Available Start: 07-23-2023 End: 07-23-2023 ambulatory SAGE Rebeca AMOS Not Available Start: 06-19-2023 End: 06-19-2023 ambulatory ANAISMOHIT MELTON Not Available Start: 06-12-2023 End: 06-12-2023 ambulatory MARIBEL ALVAREZ Not Available Start: 04-05-2023 End: 04-05-2023 ambulatory Ghislaine Ada Other [facility] Other Start: 04-05-2023 Office outpatient vi sit 25 minutes Ghislaine Ada [facility] Start: 09-07-2022 End: 09-07-2022 ambulatory Ghislaine Ada Other [facility] Other Start: 09-07-2022 Office outpatient vi sit 15 minutes Ghislaine Ada [facility] Start: 08-31-2022 End: 09-01-[address] MARIBEL ALVAREZ Facility:[facility] Start: 08-18-2022 End: 08-19-[address] MARIBEL ALVAREZ Facility:[facility] Start: 07-26-2022 End: 07-26-[address] MARIBEL ALVAREZ Facility:[facility] Start: 07-18-2022 End: 07-18-2022 ambulatory Ghislaine Ada Other [facility] Other Start: 07-18-2022 Telephone encounter Ghislaine Ada [facility] Start: 03-23-2022 End: 03-23-2022 ambulatory Ghislaine Ada Other [facility] Other Start: 03-23-2022 Office outpatient vi sit [...] 09-13-2021 End: 09-13-2021 ambulatory Ghislaine Ada Other [facility] Other Start: 09-13-2021 Telephone encounter Ghislaine Ada [facility] Start: 09-01-2021 End: 09-01-2021 ambulatory Ghislaine Ada Other [facility] Other Start: 09-01-2021 Office outpatient vi sit 25 minutes Ghislaine Ada [facility] Start: 09-01-2021 Telephone encounter Ghislaine Ada [facility] Start: 08-22-2021 End: 08-22-2021 ambulatory Ghislaine Ada Other [facility] Start: 08-22-2021 Telephone encounter Ghislaine Ada [facility] Start: 08-15-2021 End: 08-15-2021 ambulatory Ghislaine Ada Other [facility] Other Start: 08-15-2021 Telephone encounter Ghislaine Ada [facility] Start: 05-24-2021 End: 05-24-2021 ambulatory Ghislaine Daa Other [facility] Other Start: 05-24-2021 Telephone encounter Ghislaine Ada [facility] Start: 02-21-2021 End: 02-21-2021 ambulatory Ghislaine Ada Other [facility] Other Start: 02-21-2021 Telephone encounter Ghislaine Ada [facility] Start: 02-11-2021 End: 02-11-2021 ambulatory Ghislaine Ada Other [facility] Other Start: 02-11-2021 Telephone encounter Ghislaine Ada [facility] Start: 02-10-2021 End: 02-10-2021 ambulatory Ghislaine Ada Other [facility] Start: 02-10-2021 Office outpatient vi sit 25 minutes Ghislaine Ada [facility] Start: 07-20-2020 End: 07-21-2020 Patient encounter procedure MARIBEL AVALOS [facility] Start: 10-11-2017 End: 10-12-2017 Patient encounter Bakari Berg [place] [place] Date Payer Category Payer Private Health Insurance [id number] 2020 Unknown [id number] 2017 Private Health Insurance [id number] Self-pay 1955 Unknown [id number] 2.16.8 40.1.452705.3.579.2.173 1953 Unknown [id number] 2.16.84 0.1.601878.3.579.2.593 1953 Unknown [id number] 2.16.84 0.1.612452.3.579.2.593 1953 Unknown [id number] 2.16.84 0.1.326663.3.579.2.593 1953 Unknown [id number] 2.16.84 0.1.961871.3.579.2.593 1953 Unknown [id number] 2.16.84 0.1.310359.3.579.2.593 1953 Unknown [id number] 2.16.84 0.1.797703.3.579.2.593 1953 Unknown [id number] 2.16.84 0.1.949301.3.579.2.593 1953 Unknown [id number] 2.16.84 0.1.229742.3.579.2.593 1953 Unknown [id number] 2.16.84 0.1.913935.3.579.2.593 1953 Unknown [id number] 2.16.84 0.1.148100.3.579.2.593 1953 Unknown [id number] 2.16.84 0.1.672956.3.579.2.593 1953 Unknown [id number] 2.16.84 0.1.708941.3.579.2.1259 1953 Unknown [id number] 2.16.84 0.1.286329.3.579.2.1259 1953 Unknown [id number] 2.16.84 0.1.135236.3.579.2.1259 1953 Unknown [id number] 2.16.84 0.1.065998.3.579.2.1259 1953 Unknown [id number] 2.16.84 0.1.771482.3.579.2.1259 1953 Unknown [id number] 2.16.84 0.1.482427.3.579.2.1259 1953 Unknown [id number] 2.16.84 0.1.801241.3.579.2.1259 1953 Unknown [id number] 2.16.84 0.1.330880.3.579.2.1259 1953 Unknown [id number] 2.16.84 0.1.097849.3.579.2.1259 1953 Unknown [id number] 2.16.84 0.1.270450.3.579.2.1259 1953 Unknown [id number] 2.16.84 0.1.438322.3.579.2.1259 1953 Unknown [id number] 2.16.8 40.1.970135.3.579.2.1286 1953 Unknown [id number] 2.16.8 40.1.662717.3.579.2.1286 1953 Unknown [id number] 2.16.8 40.1.710281.3.579.2.1286 1953 Unknown [id number] 2.16.8 40.1.200001.3.579.2.1286 1953 Unknown [id number] 2.16.8 40.1.189686.3.579.2.1286 1953 Unknown [id number] 2.16.8 40.1.667262.3.579.2.1286 Medicare [id number] 2. 16.840.1.653242.19 Unknown [id number] 2.16.84 0.1.724381.3.579.2.593 Social History Date Type Detail Facility Unknown if ever smoked [facility] Other Sex Assigned At Sex Assigned At Bir th [facility] Other Clinical Notes 12-27-2016 to 09-22-2023 Note [...] Kelly Mckeon MD on 09/22/2023 8:01 AM [facility] 04-05-2023 Evaluation note Encounter Date Diagnosis Assessment [...] monitor LFTs and lipid profile with PCP [facility] Other 06-01-2023 Evaluation note* Encounter Date Diagnosis [...] monitor LFTs and lipid profile with PCP [facility] Other 05-12-2023 NotePROCEDURE: XR KNEE LT 3V HISTORY: Pain of joint of knee ; acute left knee pain COMPARISON: None. FINDINGS: BONES:No fracture, acute abnormality, or significant arthropathy. SOFT TISSUES:No visible soft tissue swelling. EFFUSION:None visible. OTHER: Negative. IMPRESSION: 1. No appreciable acute abnormality or significant degenerative joint disease. Electronically authenticated by: PEGGY CORTEZ Date: 2022-08-18 12:27[facility]12-15-2022 Evaluation note* Encounter Date Diagnosis Assessment Notes [...] within the goal. Continue oral vitamin D [facility] Other 07-12-2022 NotePROCEDURE: XR PELVIS W_OBL MIN [...] Electronically authenticated by: CONNIE LICEA Date: 2021-10-18 19:13[facility]05-26-2022 Evaluation note* Encounter Date Diagnosis Assessment Notes [...] within the goal. Continue oral vitamin D [facility] Other [id number] Evaluation note* Encounter Date Diagnosis Assessment Notes Treatment Notes Treatment Clinical Notes August, Type 2 diabetes mellitus with diabetic chronic kidney disease (ICD-10 - E11.22) [facility] Other 11-04-2021 Evaluation note* Encounter Date Diagnosis [...] the goal and Vit D is normal. [facility] Other 09-20-2017 History general Narrative - Reported* Type Description Date Medical History diabetes mellitus Medical History hypertension Medical History hyperlipidemia Surgical History COLONOSCOPY NORMAL P ER PATIENT AT [facility] 12-27-2016 Hospitalization History Dehydration [facility] p.,. june 2016 [facility] Other 09-20-2017 History general Narrative - Reported* Type Description Date Medical History diabetes mellitus Medical History hypertension Medical History hyperlipidemia Surgical History COLONOSCOPY NORMAL P ER PATIENT AT [facility] 12-27-2016 Hospitalization History Dehydration 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 08/09/2021 [facility] Other 09-20-2017 History general Narrative - Reported* Type Description Date Medical History diabetes mellitus Medical History hypertension Medical History hyperlipidemia Surgical History COLONOSCOPY NORMAL P ER PATIENT AT [facility] 12-27-2016 Hospitalization History Dehydration 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, UTI, SEPSIS 08/09/2021 [facility] Other 09-20-2017 History general Narrative - Reported* Type Description Date Medical History diabetes mellitus Medical History hypertension Medical History hyperlipidemia Medical History OSTEOPOROSIS Surgical History COLONOSCOPY NORMAL P ER PATIENT AT [facility] 12-27-2016 Hospitalization History Dehydration [facility] 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, UTI, SEPSIS 08/09/2021 [facility] Other Evaluation noteNo InformationNoTail[employer]f Systems Other Evaluation noteNoTail-f Systems Other History general Narrative - ReportedNoTail-f Systems Other Summary Purpose Family History No Family History Records FoundNo Family History Records FoundNo Family History Records FoundNo Family History Records FoundNo Family History Records Found Advance Directives No Advanced Directives Records FoundNo Advanced Directives Records FoundNo Advanced Directives Records FoundNo Advanced Directives Records FoundNo Advanced Directives Records Found Additional Source Comments INFORMATION SOURCE (unrecogn ized section and content) DATE CREATED AUTHOR 12/05/2017 [facility] DATE CREATED AUTHOR AUTHOR'S ORGANIZ ATION 07/23/2020 [facility] DATE CREATED AUTHOR AUTHOR'S ORGANIZ ATION 09/16/2022 [facility] DATE CREATED AUTHOR AUTHOR'S ORGANIZ ATION 10/02/2023 [facility] DATE CREATED AUTHOR AUTHOR'S ORGANIZ ATION 10/10/2023 [facility] REASON FOR VISIT (unrecogniz ed section and [...] BE BASED ON THE PRIMARY CLINICAL RECORDS. [employer]. provides no warranty or guarantee of the accuracy or completeness of information in this document.
[2023-10-12] MEDS: 0.9 % SODIUM CHLORIDE 1,000 ML 100 ML IV (21:44)
[2023-10-12] MEDS: ATORVASTATIN CALCIUM 10 MG TABLET PO (21:44)
[2023-10-12] MEDS: CALCIUM CARBONATE 600 MG/VITAMIN D3 400 IU TABLET 1 TAB PO (21:44)
[2023-10-12] MEDS: ACETAMINOPHEN 325 MG TABLET 650 MG PO (21:44)
[2023-10-12] MEDS: METOPROLOL TARTRATE 50 MG TABLET PO (21:44)
[2023-10-12 22:09] LABS: Glucometer 181 mg/dL (74-106)
[2023-10-12 23:49] LABS: Lactate/Lactic Acid 2.5 mmol/L (0.4-2.0)
[2023-10-13] VITALS (20 sets, daily range): BP systolic 109–136; BP diastolic 69–76; PULSE 73–97; TEMP 36.4–36.8; O2SAT 93–98
[2023-10-13] MEDS: INSULIN ASPART 300 UNIT/3 ML PEN SUBQ ×2 (00:31→09:22)
[2023-10-13 05:13] LABS: Basophils Percent Auto 0.2 % (0.2-2.0); Eosinophils Percent Auto 0.1 % (0.9-7.0); Hematocrit 29.9 % (36.0-48.0); Immature Granulocytes Abs Auto 0.04 10^3/uL (0.00-0.03); Immature Granulocytes Pct Auto 0.4 % (0.0-0.5); Lymphocytes Percent Auto 8.6 % (20.5-60.0); Mean Corpuscular HGB Conc 33.4 g/dL (29.9-35.2); Mean Corpuscular Hemoglobin 31.1 pg (26.7-34.0); Mean Corpuscular Volume 92.9 fL (81.0-99.0); Monocytes Absolute Auto 1.5 10^3/uL (0.3-0.8); Monocytes Percent Auto 13.6 % (1.7-12.0); Neutrophils Absolute Auto 8.7 10^3/uL (1.4-6.5); Neutrophils Percent Auto 77.1 % (43.0-75.0); Platelet Count 233 10^3/uL (150-450); Red Blood Count 3.22 10^6/uL (4.20-5.40); Red Cell Distribution Width 12.5 % (11.0-15.0); White Blood Count 11.3 10^3/uL (4.0-11.0)
[2023-10-13 05:28] LABS: Lactate/Lactic Acid 0.7 mmol/L (0.4-2.0)
[2023-10-13 05:35] LABS: Alanine Aminotransferase 165 U/L (14-59); Albumin Globulin Ratio 0.7; Albumin Level 2.6 g/dL (3.4-5.0); Alkaline Phosphatase 153 U/L (46-116); Anion Gap 10.2; Aspartate Amino Transferase 169 U/L (15-37); BUN Creatinine Ratio 14.5; Bilirubin Total 0.9 mg/dL (0.2-1.0); Calcium 8.4 mg/dL (8.5-10.1); Carbon Dioxide 25.3 mmol/L (21.0-32.0); Chloride 101 mmol/L (98-107); Estimated GFR (African America 56 (>=60); Estimated GFR (Non-African Ame 46 (>=60); Globulin 3.9 g/dL; Glucose 147 mg/dL (74-106); Potassium 3.5 mmol/L (3.5-5.1); Sodium 133 mmol/L (136-145); Total Protein 6.5 g/dL (6.4-8.2)
[2023-10-13] MEDS: 0.9 % SODIUM CHLORIDE 1,000 ML 100 ML IV ×2 (06:04→19:16)
[2023-10-13] MEDS: FERROUS SULFATE 325 MG TABLET PO (09:22)
[2023-10-13] MEDS: MAGNESIUM OXIDE 400 MG TABLET PO (09:23)
[2023-10-13] MEDS: ENOXAPARIN SODIUM 40 MG/0.4 ML SYRINGE SUBQ (09:23)
[2023-10-13] MEDS: IRON PS COMPLEX/B12/FOLIC ACID CAPSULE 1 CAP PO (09:23)
[2023-10-13] MEDS: METOPROLOL TARTRATE 50 MG TABLET PO ×2 (09:23→21:06)
[2023-10-13] MEDS: CALCIUM CARBONATE 600 MG/VITAMIN D3 400 IU TABLET 1 TAB PO ×2 (09:23→21:06)
[2023-10-13] MEDS: LOSARTAN POTASSIUM 50 MG TABLET 100 MG PO (09:23)
[2023-10-13] MEDS: HYDROCHLOROTHIAZIDE 25 MG TABLET PO (09:23)
[2023-10-13 09:24] LABS: A. calcoaceticus-baumannii Cpx NOT DETECTED (NOT DETECTE); Bacteroides fragilis NOT DETECTED (NOT DETECTE); Candida albicans NOT DETECTED (NOT DETECTE); Candida auris NOT DETECTED (NOT DETECTE); Candida glabrata NOT DETECTED (NOT DETECTE); Candida krusei NOT DETECTED (NOT DETECTE); Candida parapsilosis NOT DETECTED (NOT DETECTE); Candida tropicalis NOT DETECTED (NOT DETECTE); Cryptococcus neoformans/gattii NOT DETECTED (NOT DETECTE); Enterobacter cloacae complex NOT DETECTED (NOT DETECTE); Enterococcus faecalis NOT DETECTED (NOT DETECTE); Enterococcus faecium NOT DETECTED (NOT DETECTE); Haemophilus influenzae NOT DETECTED (NOT DETECTE); Klebsiella aerogenes NOT DETECTED (NOT DETECTE); Klebsiella pneumoniae group NOT DETECTED (NOT DETECTE); Listeria monocytogenes NOT DETECTED (NOT DETECTE); Neisseria meningitidis NOT DETECTED (NOT DETECTE); Proteus spp. NOT DETECTED (NOT DETECTE); Pseudomonas aeruginosa NOT DETECTED (NOT DETECTE); Salmonella spp. NOT DETECTED (NOT DETECTE); Serratia marcescens NOT DETECTED (NOT DETECTE); Staphylococcus epidermidis NOT DETECTED (NOT DETECTE); Staphylococcus lugdunensis NOT DETECTED (NOT DETECTE); Staphylococcus spp. NOT DETECTED (NOT DETECTE); Stenotrophomonas maltophilia NOT DETECTED (NOT DETECTE); Streptococcus agalactiae NOT DETECTED (NOT DETECTE); Streptococcus pneumoniae NOT DETECTED (NOT DETECTE); Streptococcus pyogenes NOT DETECTED (NOT DETECTE); Streptococcus spp. NOT DETECTED (NOT DETECTE)
[2023-10-13] MEDS: ACETAMINOPHEN 325 MG TABLET 650 MG PO ×2 (09:24→21:06)
[2023-10-13 10:45] LABS: CTX-M NOT DETECTED (NOT DETECTE); IMP NOT DETECTED (NOT DETECTE); KPC NOT DETECTED (NOT DETECTE)
[2023-10-13 10:46] LABS: NDM NOT DETECTED (NOT DETECTE); OXA-48-like NOT DETECTED (NOT DETECTE); Source BLOOD; VIM NOT DETECTED (NOT DETECTE); mcr-1 NOT DETECTED (NOT DETECTE)
[2023-10-13 10:48] LABS: Enterobacterales DETECTED (NOT DETECTE)
--- NOTE | 2023-10-13 10:48 | PM.HP ---
HPI H&P: HPI History of Present Illness Chief complaint: POSS UTI UTI SEPSIS Narrative: 67 y/o female to ER with possible UTI. Scheduled for hip replacement 10/15. Preop cath urine culture grew 10-20K E. coli and treated with keflex. C/o chills and weakness. Noticed urine with strong odor and concerned for UTI and to ER. No fever and WBC slightly elevated. Labs show DINA and given IV fluids. Procalcitonin elevated along with tachycardia concerning for sepsis. Given IV rocephin and admitted. Initial lactate slightly elevated and increased on repeat. Given IV fluid bolus and repeat normal. Labs improved after IV fluids. Feels better and strength improved. Blood culture PCR positive for E. coli. Opioid HPI Opioid Management Most Recent Pain and Opioid Data: Last Pain Scale 1 10/13/23 09:24 Last Pain Assessment 10/13/23 10:00 Last MAR Pain Assessment 10/13/23 10:24 Last ORT Total Score 0 10/12/23 21:10 Last ORT Risk Category Low Risk 10/12/23 21:10 Review of Systems ROS Constitutional Reports: chills and fatigue; Denies: fever Cardiovascular Denies: chest pain, palpitations or edema Respiratory Denies: shortness of breath, cough or wheezing Gastrointestinal Denies: abdominal pain, nausea, vomiting or diarrhea Genitourinary Denies: painful [facility] Medical History (Updated 10/13/23 @ 10:58 by Romulo Garcia MD) Tonsillectomy planned UTI (urinary tract infection) ?N39.0 - Urinary tract infection, site not specified (ICD-10) Arthritis ?M19.90 - Unspecified osteoarthritis, unspecified site (ICD-10) Chronic kidney disease ?N18.9 - Chronic kidney disease, unspecified (ICD-10) Diabetes ?E11.9 - Type 2 diabetes mellitus without complications (ICD-10) Hyperlipidemia ?E78.5 - Hyperlipidemia, unspecified (ICD-10) Surgical History (Updated 10/12/23 @ 21:39 by David Washington) Hx of tonsillectomy ?Z90.89 - Acquired absence of other organs (ICD-10) Social History Highest level of school completed/degree received: 12th grade, no diploma Meds Home Medications and Allergies Home Medications ?Medication ?Instructions ?Recorded ?Confirmed ?Type alendronate 70 mg tablet 70 mg PO .WEEKLY 10/12/23 10/13/23 History atorvastatin 10 mg tablet 10 mg PO BEDTIME 10/12/23 10/12/23 History calcium carbonate 600 mg-vitamin 1 tab PO BID 10/12/23 10/12/23 History D3 10 mcg (400 unit) tablet ferrous sulfate 325 mg (65 mg 325 mg PO .QOD 10/12/23 10/13/23 History iron) tablet (FeroSul) iron polysacch cplx 150 mg 1 cap PO DAILY 10/12/23 10/12/23 History iron-vit B12 25 mcg-folic acid 1 mg capsule (Poly-Iron) losartan 100 1 tab PO DAILY 10/12/23 10/12/23 History mg-hydrochlorothiazide 25 mg tablet magnesium oxide 400 mg (241.3 mg 400 mg PO DAILY 10/12/23 10/12/23 History magnesium) tablet metformin 500 mg tablet 500 mg PO BID 10/12/23 10/12/23 History metoprolol tartrate 50 mg tablet 50 mg PO BID 10/12/23 10/12/23 History vbszwjrx-yhai-xcsg 8 mg-folic 400 1 tab PO DAILY 10/12/23 10/12/23 History mcg-K 50 mcg-lutein 300 mcg tablet (Centrum Silver Women) cefdinir 300 mg capsule 300 mg PO BID 10 days #20 caps 10/13/23 Rx oxycodone-acetaminophen 10 mg-325 1 tab PO QID PRN pain, severe 10/13/23 10/13/23 History mg tablet Allergies Allergy/AdvReac Type Severity Reaction Status Date / Time No Known Drug Allergies Allergy Verified 10/12/23 18:02 Exam Constitutional Vital Signs, click to edit/add: Last Vital Signs Temp 97.6 F 10/13/23 09:00 Pulse 92 H 10/13/23 10:00 Resp 18 10/13/23 09:00 BP 109/69 10/13/23 09:00 Pulse Ox 98 10/13/23 09:00 O2 Del Method Room Air 10/13/23 09:00 Documenting provider has reviewed patient's vital signs: yes Common normals: no apparent distress, oriented x3 and alert HENMT Common normals: normocephalic Eye Common normals: PERRL and EOMs intact bilaterally Respiratory Common normals: normal respiratory effort and clear to auscultation bilaterally Cardio Common normals: regular rate, regular rhythm, no gallops, no murmurs and no rub GI Common normals: Normal to inspection, nondistended, normoactive bowel sounds present and non-tender Extremity Common normals: no pedal edema Results Labs Labs: Short CBC 10/12/23 10/13/23 Range/Units 18:15 04:35 WBC 12.0 H 11.3 H (4.0-11.0) 10^3/uL Hgb 11.7 L 10.0 L (12.0-16.0) g/dL Hct 35.1 L 29.9 L (36.0-48.0) % Plt Count 275 233 (150-450) 10^3/uL BMP 10/12/23 10/13/23 18:15 04:35 Sodium 132 L 133 L Potassium 3.5 3.5 Chloride 95 L 101 Carbon Dioxide 24.9 25.3 BUN 23.0 H 17.0 Creatinine 1.47 H 1.17 H Glucose 230 H 147 H Calcium 8.9 8.4 L Liver Function 10/12/23 10/13/23 Range/Units 18:15 04:35 Total Bilirubin 1.4 H 0.9 (0.2-1.0) mg/dL AST 81 H 169 H (15-37) U/L ALT 114 H 165 H (14-59) U/L Alkaline Phosphatase 159 H 153 H (46-116) U/L Albumin 3.4 2.6 L (3.4-5.0) g/dL Urine 10/12/23 Range/Units 18:05 Urine Color Yellow (YELLOW) Urine Clarity Clear (CLEAR) Urine pH 6.0 (5.0-9.0) Ur Specific Foley 1.015 (1.005-1.025) Urine Protein 100 A (NEG/TRACE) mg/dL Urine Glucose (UA) Negative (NEGATIVE) mg/dL ABG ABG results: 10/12/23 18:15 VBG pH 7.478 H VBG pCO2 32.8 L Assessment and Plan Assessment and Plan (1) Sepsis: Qualifiers: Sepsis type: Escherichia coli Sepsis acute organ dysfunction status: without acute organ dysfunction Qualified Code(s): A41.51 - Sepsis due to Escherichia coli [E. coli] (2) Acute UTI: (3) Dehydration: (4) DINA (acute kidney injury): (5) Type 2 diabetes mellitus with hyperglycemia: Qualifiers: Diabetes mellitus nursing home insulin use: without intermediate card tender use Qualified Code(s): E11.65 - Type 2 diabetes mellitus with hyperglycemia (6) Hypertension: Qualifiers: Hypertension type: primary hypertension Qualified Code(s): I10 - Essential (primary) hypertension (7) CKD stage 3a, GFR 45-59 ml/min: Plan Presented with concern of UTI and found sepsis. Blood culture with E. coli and has E. coli UTI that failed outpatient treatment with keflex. Continue rocephin and add levaquin. Await cultures. Labs improved after IV fluids and monitor. Resume home medication. Plan for at least a 2 midnight stay for inpatient medically necessary services.
[2023-10-13 12:05] LABS: Glucometer 110 mg/dL (74-106)
[2023-10-13] MEDS: LEVOFLOXACIN IN DEXTROSE 5 % 750 MG/150 ML IV.SOLN 100 MG IV (12:39)
[2023-10-13 16:09] LABS: Glucometer 138 mg/dL (74-106)
[2023-10-13 19:40] LABS: Glucometer 153 mg/dL (74-106)
[2023-10-13 20:33] LABS: PROCALCITONIN 4.96 ng/mL (0.00-0.50)
[2023-10-13] MEDS: ATORVASTATIN CALCIUM 10 MG TABLET PO (21:06)
[2023-10-13] MEDS: CEFTRIAXONE 1,000 MG in 0.9 % SODIUM CHLORIDE 50 ML 100 MG IV (21:07)
[2023-10-14] VITALS (20 sets, daily range): BP systolic 115–142; BP diastolic 69–86; PULSE 64–94; TEMP 36.7–36.8; O2SAT 97–99
[2023-10-14 05:11] LABS: Basophils Percent Auto 0.3 % (0.2-2.0); Eosinophils Absolute Auto 0.1 10^3/uL (0.0-0.7); Hematocrit 30.4 % (36.0-48.0); Hemoglobin 9.7 g/dL (12.0-16.0); Immature Granulocytes Abs Auto 0.02 10^3/uL (0.00-0.03); Immature Granulocytes Pct Auto 0.3 % (0.0-0.5); Lymphocytes Absolute Auto 1.3 10^3/uL (1.2-3.8); Lymphocytes Percent Auto 20.5 % (20.5-60.0); Mean Corpuscular HGB Conc 31.9 g/dL (29.9-35.2); Mean Corpuscular Volume 94.1 fL (81.0-99.0); Monocytes Absolute Auto 1.2 10^3/uL (0.3-0.8); Monocytes Percent Auto 19.2 % (1.7-12.0); Neutrophils Absolute Auto 3.7 10^3/uL (1.4-6.5); Neutrophils Percent Auto 58.7 % (43.0-75.0); Platelet Count 233 10^3/uL (150-450); Red Blood Count 3.23 10^6/uL (4.20-5.40); Red Cell Distribution Width 12.6 % (11.0-15.0); White Blood Count 6.3 10^3/uL (4.0-11.0)
[2023-10-14 05:38] LABS: Alanine Aminotransferase 308 U/L (14-59); Albumin Globulin Ratio 0.6; Albumin Level 2.4 g/dL (3.4-5.0); Alkaline Phosphatase 194 U/L (46-116); Anion Gap 7.9; Aspartate Amino Transferase 276 U/L (15-37); Bilirubin Total 0.5 mg/dL (0.2-1.0); Calcium 8.7 mg/dL (8.5-10.1); Carbon Dioxide 25.9 mmol/L (21.0-32.0); Chloride 106 mmol/L (98-107); Estimated GFR (African America 58 (>=60); Estimated GFR (Non-African Ame 48 (>=60); Glucose 135 mg/dL (74-106); Potassium 3.8 mmol/L (3.5-5.1); Sodium 136 mmol/L (136-145); Total Protein 6.4 g/dL (6.4-8.2)
[2023-10-14] MEDS: 0.9 % SODIUM CHLORIDE 1,000 ML 100 ML IV (06:03)
[2023-10-14] MEDS: CALCIUM CARBONATE 600 MG/VITAMIN D3 400 IU TABLET 1 TAB PO ×2 (08:42→21:07)
[2023-10-14] MEDS: FERROUS SULFATE 325 MG TABLET PO (08:42)
[2023-10-14] MEDS: MAGNESIUM OXIDE 400 MG TABLET PO (08:42)
[2023-10-14] MEDS: ENOXAPARIN SODIUM 40 MG/0.4 ML SYRINGE SUBQ (08:42)
[2023-10-14] MEDS: LOSARTAN POTASSIUM 50 MG TABLET 100 MG PO (08:42)
[2023-10-14] MEDS: ACETAMINOPHEN 325 MG TABLET 650 MG PO ×2 (08:42→21:09)
[2023-10-14] MEDS: HYDROCHLOROTHIAZIDE 25 MG TABLET PO (08:42)
[2023-10-14] MEDS: METOPROLOL TARTRATE 50 MG TABLET PO ×2 (08:42→21:07)
[2023-10-14] MEDS: IRON PS COMPLEX/B12/FOLIC ACID CAPSULE 1 CAP PO (08:42)
[2023-10-14 11:39] LABS: Glucometer 207 mg/dL (74-106)
[2023-10-14] MEDS: LEVOFLOXACIN IN DEXTROSE 5 % 750 MG/150 ML IV.SOLN 100 MG IV (12:02)
[2023-10-14] MEDS: INSULIN ASPART 300 UNIT/3 ML PEN SUBQ (12:02)
--- NOTE | 2023-10-14 13:35 | PM.PN ---
Progress Note: Subjective Subjective Interval history: Patient feels well this am. WBC normal and afebrile. Normal PO intake and no emesis or diarrhea. Strength improved and ambulating around room. Blood culture pending. LFTs elevated. Denies abdominal pain and no tenderness in RUQ. No chest pain or palpitations. No SOB or cough. Exam Constitutional Vital Signs, click to edit/add: Last Vital Signs Temp 98.0 F 10/14/23 07:40 Pulse 67 10/14/23 12:00 Resp 16 10/14/23 07:40 BP 123/78 10/14/23 07:40 Pulse Ox 97 10/14/23 11:32 O2 Del Method Room Air 10/14/23 11:32 Documenting provider has reviewed patient's vital signs: yes Common normals: no apparent distress, oriented x3 and alert HENMT Common normals: normocephalic Eye Common normals: PERRL and EOMs intact bilaterally Respiratory Common normals: normal respiratory effort and clear to auscultation bilaterally Cardio Common normals: regular rate, regular rhythm, no gallops, no murmurs and no rub GI Common normals: Normal to inspection, nondistended, normoactive bowel sounds present and non-tender Extremity Common normals: no pedal edema Progress Note: Objective Labs Labs: Short CBC 10/14/23 Range/Units 04:44 WBC 6.3 (4.0-11.0) 10^3/uL Hgb 9.7 L (12.0-16.0) g/dL Hct 30.4 L (36.0-48.0) % Plt Count 233 (150-450) 10^3/uL BMP 10/14/23 04:44 Sodium 136 Potassium 3.8 Chloride 106 Carbon Dioxide 25.9 BUN 17.0 Creatinine 1.13 H Glucose 135 H Calcium 8.7 Liver Function 10/14/23 Range/Units 04:44 Total Bilirubin 0.5 (0.2-1.0) mg/dL AST 276 H (15-37) U/L ALT 308 H (14-59) U/L Alkaline Phosphatase 194 H (46-116) U/L Albumin 2.4 L (3.4-5.0) g/dL Progress Note: A&P Assessment and Plan (1) Sepsis: Qualifiers: Sepsis acute organ dysfunction status: without acute organ dysfunction Sepsis type: Escherichia coli Qualified Code(s): A41.51 - Sepsis due to Escherichia coli [E. coli] (2) Acute UTI: (3) Dehydration: (4) DINA (acute kidney injury): (5) Abnormal liver enzymes: (6) Type 2 diabetes mellitus with hyperglycemia: Qualifiers: Diabetes mellitus intermodal customer service insulin use: without intermodal customer service use Qualified Code(s): E11.65 - Type 2 diabetes mellitus with hyperglycemia (7) Hypertension: Qualifiers: Hypertension type: primary hypertension Qualified Code(s): I10 - Essential (primary) hypertension (8) CKD stage 3a, GFR 45-59 ml/min: Plan Continue levaquin and rocephin while awaiting cultures. LFTs elevated and unclear etiology. Check US RUQ. Increase ambulation. Monitor labs and vitals. If continue to improve possibly home in am.
[2023-10-14] MEDS: HYDROXYZINE HCL 25 MG TABLET PO (15:10)
[2023-10-14 16:15] LABS: Glucometer 102 mg/dL (74-106)
[2023-10-14] MEDS: CEFTRIAXONE 1,000 MG in 0.9 % SODIUM CHLORIDE 50 ML 100 MG IV (19:48)
[2023-10-14 19:50] LABS: Glucometer 121 mg/dL (74-106)
[2023-10-14] MEDS: ATORVASTATIN CALCIUM 10 MG TABLET PO (21:07)
[2023-10-15] VITALS (8 sets, daily range): BP systolic 120–146; BP diastolic 74–76; PULSE 62–80; TEMP 36.6–36.8; O2SAT 91–95
[2023-10-15 05:00] LABS: Basophils Absolute Auto 0.1 10^3/uL (0.0-0.1); Basophils Percent Auto 0.9 % (0.2-2.0); Eosinophils Absolute Auto 0.2 10^3/uL (0.0-0.7); Eosinophils Percent Auto 2.8 % (0.9-7.0); Hematocrit 31.3 % (36.0-48.0); Hemoglobin 10.1 g/dL (12.0-16.0); Immature Granulocytes Abs Auto 0.03 10^3/uL (0.00-0.03); Immature Granulocytes Pct Auto 0.6 % (0.0-0.5); Lymphocytes Absolute Auto 1.3 10^3/uL (1.2-3.8); Lymphocytes Percent Auto 23.3 % (20.5-60.0); Mean Corpuscular HGB Conc 32.3 g/dL (29.9-35.2); Mean Corpuscular Hemoglobin 30.4 pg (26.7-34.0); Mean Corpuscular Volume 94.3 fL (81.0-99.0); Mean Platelet Volume 10.8 fL (9.5-13.5); Monocytes Absolute Auto 0.9 10^3/uL (0.3-0.8); Monocytes Percent Auto 16.5 % (1.7-12.0); Neutrophils Percent Auto 55.9 % (43.0-75.0); Platelet Count 249 10^3/uL (150-450); Red Blood Count 3.32 10^6/uL (4.20-5.40); Red Cell Distribution Width 12.5 % (11.0-15.0); White Blood Count 5.4 10^3/uL (4.0-11.0)
[2023-10-15 05:24] LABS: Alanine Aminotransferase 316 U/L (14-59); Albumin Globulin Ratio 0.7; Albumin Level 2.6 g/dL (3.4-5.0); Alkaline Phosphatase 206 U/L (46-116); Anion Gap 11.7; Aspartate Amino Transferase 195 U/L (15-37); BUN Creatinine Ratio 16.8; Bilirubin Total 0.5 mg/dL (0.2-1.0); Calcium 8.6 mg/dL (8.5-10.1); Carbon Dioxide 27.4 mmol/L (21.0-32.0); Chloride 105 mmol/L (98-107); Estimated GFR (African America 51 (>=60); Estimated GFR (Non-African Ame 42 (>=60); Globulin 3.9 g/dL; Glucose 97 mg/dL (74-106); Potassium 4.1 mmol/L (3.5-5.1); Sodium 140 mmol/L (136-145); Total Protein 6.5 g/dL (6.4-8.2)
--- NOTE | 2023-10-15 07:00 | US_ITS ---
[address] [address] Patient Name: LONDON COURTNEY MRN: [id number] date: 1955 Sex: F Assigned Patient Location: [place] Current Patient Location: [place] Accession/Order Number: [id number] Exam Date: 10/15/2023 07:30 Report Date: 10/15/2023 08:09 At the request of: MARIBEL ALVAREZ Procedure: US right upper quadrant EXAM: US right upper quadrant HISTORY: Abnormal LFTs COMPARISON: None. TECHNIQUE: Grayscale, color and Doppler ultrasound FINDINGS: The liver is normal in size, contour and cortical echotexture. No focal mass. Hepatopedal flow in the main portal vein with a flow velocity of 30 cm/s. The gallbladder is contracted. The wall measures 2.9 mm, normal. The common bile duct measures 4.6 mm, normal. Negative sonographic Leonard sign. The visualized pancreas is normal The right kidney is normal measuring 8.8 x 4.3 x 4.7 cm US/US right upper quadrant IMPRESSION: Normal exam Electronically authenticated by: CONNIE LICEA Date: 10/15/2023 08:09
[2023-10-15] MEDS: HYDROXYZINE HCL 25 MG TABLET PO (08:33)
[2023-10-15] MEDS: MAGNESIUM OXIDE 400 MG TABLET PO (08:33)
[2023-10-15] MEDS: HYDROCHLOROTHIAZIDE 25 MG TABLET PO (08:33)
[2023-10-15] MEDS: FERROUS SULFATE 325 MG TABLET PO (08:33)
[2023-10-15] MEDS: METOPROLOL TARTRATE 50 MG TABLET PO (08:33)
[2023-10-15] MEDS: CALCIUM CARBONATE 600 MG/VITAMIN D3 400 IU TABLET 1 TAB PO (08:33)
[2023-10-15] MEDS: LOSARTAN POTASSIUM 50 MG TABLET 100 MG PO (08:33)
[2023-10-15] MEDS: IRON PS COMPLEX/B12/FOLIC ACID CAPSULE 1 CAP PO (08:33)
[2023-10-15] MEDS: ENOXAPARIN SODIUM 40 MG/0.4 ML SYRINGE SUBQ (08:34)
--- NOTE | 2023-10-15 09:58 | SWNOTE1 ---
SW met with pt to discuss dc needs. Pt lives at home alone. Her daughter can assist as needed. Pt uses a walker most of the time. She does drive herself to the grocery store and doctor appointments. Pt did want to talk to Saira in [facility] and had some questions that SW did not know the answer to. SW sent email to Gina Chávez, and Bonny in [facility]. SW let pt know. Pt had not concerns about discharge and voiced no discharge needs at this time. SW to follow as needed. Important Message from Medicare reviewed and discussed with patient. Pt. verbalized understanding and signed the form. Original given to patient and copy placed in patient?s chart.
[2023-10-15 11:31] LABS: Glucometer 142 mg/dL (74-106)
--- NOTE | 2023-10-15 11:39 | PM.DS1 ---
DS: Providers Provider Date of admission: 10/12/23 20:41 Primary care physician: Romulo Garcia MD DS: Diagnosis Discharge Diagnosis (1) Sepsis: Qualifiers: Sepsis acute organ dysfunction status: without acute organ dysfunction Sepsis type: Escherichia coli Qualified Code(s): A41.51 - Sepsis due to Escherichia coli [E. coli] (2) Acute UTI: (3) Dehydration: (4) DINA (acute kidney injury): (5) Abnormal liver enzymes: (6) Type 2 diabetes mellitus with hyperglycemia: Qualifiers: Diabetes mellitus retirement insulin use: without retirement use Qualified Code(s): E11.65 - Type 2 diabetes mellitus with hyperglycemia (7) Hypertension: Qualifiers: Hypertension type: primary hypertension Qualified Code(s): I10 - Essential (primary) hypertension (8) CKD stage 3a, GFR 45-59 ml/min: DS: Summary Hospital Course Hospital Course: Reason for admission: See H&P for details. 67 y/o female to ER with possible UTI. Scheduled for hip replacement 10/15. Preop cath urine culture grew 10-20K E. coli and treated with keflex. C/o chills and weakness. Noticed urine with strong odor and concerned for UTI and to ER. No fever and WBC slightly elevated. Labs show DINA and given IV fluids. Procalcitonin elevated along with tachycardia concerning for sepsis. Given IV rocephin and admitted. Hospital course: Initial lactate slightly elevated and increased on repeat. Given IV fluid bolus and repeat normal. Labs improved after IV fluids. [place] better and strength improved. Blood culture PCR positive for E. coli and added levaquin. Continued to improve. LFTs elevated and US RUQ normal. Culture showed UTI and sepsis due to E. coli but sensitive to levaquin and rocephin. Nursing contacted ortho about hospitalization and infection, will need to delay hip replacement. Discharged home in stable condition. Take levaquin x 7 days. Resume home medication as directed. Time Spent with Patient Time attestation: Total time spent providing and/or coordinating discharge services: Time spent: greater than 30 minutes Exam Constitutional Vital Signs, click to edit/add: Last Vital Signs Temp 97.9 F 10/15/23 08:13 Pulse 78 10/15/23 08:13 Resp 18 10/15/23 08:13 BP 146/76 H 10/15/23 08:13 Pulse Ox 95 10/15/23 10:47 O2 Del Method Room Air 10/15/23 10:47 Documenting provider has reviewed patient's vital signs: yes Common normals: no apparent distress, oriented x3 and alert HENMT Common normals: normocephalic Eye Common normals: PERRL and EOMs intact bilaterally Respiratory Common normals: normal respiratory effort and clear to auscultation bilaterally Cardio Common normals: regular rate, regular rhythm, no gallops, no murmurs and no rub GI Common normals: Normal to inspection, nondistended, normoactive bowel sounds present and non-tender Extremity Common normals: no pedal edema DS: Data Data Completed and Pending Labs on day of discharge: Labs from last 24 hours 10/15/23 10/15/23 10/14/23 11:29 04:20 19:42 WBC 5.4 RBC 3.32 L Hgb 10.1 L Hct 31.3 L MCV 94.3 MCH 30.4 MCHC 32.3 RDW 12.5 Plt Count 249 MPV 10.8 Neut % (Auto) 55.9 Lymph % (Auto) 23.3 [place] % (Auto) 16.5 H Eos % (Auto) 2.8 Baso % (Auto) 0.9 Neut # (Auto) 3.0 Lymph # (Auto) 1.3 [place] # (Auto) 0.9 H Eos # (Auto) 0.2 Baso # (Auto) 0.1 Abs Immat Gran (auto) 0.03 Imm/Tot Granulo (auto) 0.6 H Sodium 140 Potassium 4.1 Chloride 105 Carbon Dioxide 27.4 Anion Gap 11.7 BUN 21.0 H Creatinine 1.25 H Est GFR ( Amer) 51 L Est GFR (Non-Af Amer) 42 L BUN/Creatinine Ratio 16.8 Glucose 97 Calcium 8.6 Total Bilirubin 0.5 AST 195 H ALT 316 H Alkaline Phosphatase 206 H Total Protein 6.5 Albumin 2.6 L Globulin 3.9 Albumin/Globulin Ratio 0.7 POC Glucose 142 H 121 H 10/14/23 10/14/23 16:14 11:38 WBC RBC Hgb Hct MCV MCH MCHC RDW Plt Count MPV Neut % (Auto) Lymph % (Auto) [place] % (Auto) Eos % (Auto) Baso % (Auto) Neut # (Auto) Lymph # (Auto) [place] # (Auto) Eos # (Auto) Baso # (Auto) Abs Immat Gran (auto) Imm/Tot Granulo (auto) Sodium Potassium Chloride Carbon Dioxide Anion Gap BUN Creatinine Est GFR ( Amer) Est GFR (Non-Af Amer) BUN/Creatinine Ratio Glucose Calcium Total Bilirubin AST ALT Alkaline Phosphatase Total Protein Albumin Globulin Albumin/Globulin Ratio POC Glucose 102 207 H Preliminary micro results at discharge 10/12/23 18:15 Blood Culture Result 1 - Preliminary Blood Escherichia coli 10/12/23 18:20 - Preliminary Blood NO GROWTH AT 36-48 HOURS. FINAL TO FOLLOW. Discharge Plan Discharge Disposition: Home, Self-Care Condition: Good Discharge Medications: New levofloxacin 750 mg tablet 750 mg PO DAILY 7 Days Qty: 7 0RF Continued alendronate 70 mg tablet 70 mg PO .WEEKLY atorvastatin 10 mg tablet 10 mg PO BEDTIME calcium carbonate-vitamin D3 600 mg-10 mcg (400 unit) tablet 1 tab PO BID ferrous sulfate [FeroSul] 325 mg (65 mg iron) tablet 325 mg PO .QOD Poly-Iron 150 Forte 150-25-1 mg-mcg-mg capsule 1 cap PO DAILY losartan-hydrochlorothiazide 100-25 mg tablet 1 tab PO DAILY magnesium oxide 400 mg (241.3 mg magnesium) tablet 400 mg PO DAILY metformin 500 mg tablet 500 mg PO BID metoprolol tartrate 50 mg tablet 50 mg PO BID Centrum Silver Women 8 mg iron-400 mcg-50 mcg tablet 1 tab PO DAILY oxycodone-acetaminophen 10-325 mg tablet 1 tab PO QID PRN (Reason: pain, severe) Activity: increase activity as tolerated Diet: advance to your usual diet Print Language: Belarusian Forms: Portal Instructions
--- NOTE | 2023-10-15 12:18 | CM.NOTE ---
Rounds made with Dr. Garcia. Dr. Garcia discussed culture results for urine and blood & lab results w Doug. Dr. Garcia discussed that nurse will contact Dr. Kumar's office and let them know what has happened with her and that surgey that was planned for tomorrow will need to be postponed at present. Doug verbalized understanding. Plan is to be discharged today on po antibiotics.
[2023-10-15] MEDS: ACETAMINOPHEN 325 MG TABLET 650 MG PO (13:26)
--- NOTE | 2023-10-16 12:54 | CM.DCFOLLOWU ---
Person spoke with: patient How are you feeling? well How is your pain? none Did you understand your discharge instructions? yes Do you have any questions about your discharge instructions? no Were you given any prescriptions at discharge? yes Were you able to get your prescriptions filled? yes Do you understand how to take your medications as ordered? yes Do you have any questions about your follow up appointment and do you plan to keep your follow up appointment? no questions, reviewed follow ups Is there anything else that you would like to discuss? no Questions/Comments/Concerns/Other: none
== END 2023-10-15 16:10 | disposition home or self-care (01) | DRG 872 ==
LOC: ER 19:48 → MS 22:55
PROVIDERS: Internal Medicine; Physician Assistant; Registered Nurse; Admitting Provider Family Medicine; Emergency Provider Emergency Medicine; PCP Family Medicine; Visit Provider Family Medicine
DX: A41.51 Sepsis due to Escherichia coli [E. coli] (principal); N39.0 Urinary tract infection, site not specified; N17.9 Acute kidney failure, unspecified; E86.0 Dehydration; E11.65 Type 2 diabetes mellitus with hyperglycemia; I12.9 Hypertensive chronic kidney disease with stage 1 through stage 4 chronic kidney disease, or unspecified chronic kidney disease; N18.31 Chronic kidney disease, stage 3a; Z79.84 Long term (current) use of oral hypoglycemic drugs; R74.8 Abnormal levels of other serum enzymes
CPT/HCPCS: 36415; 76705; 80053; 81001; 82800; 82948; 83605; 83735; 84145; 85007; 85025; 85027; 85652; 86140; 87040; 87086; 87150; 87186; 93005; 94761; 96361; 96365; 96366; 96367; 96372; 99285; J0696; J1650

== ENCOUNTER 2024-01-11 09:14 | Outpatient (OUT) | payer OTHER, SELFPAY ==
--- OUTSIDE RECORDS SUMMARY | 2024-01-11 08:28 | XMS_ITS | CCD ---
Author Organization [facility] Care Team Providers Care Retail Field Representative Name Role Phone Rice, Bakari W Unavailable Unavailable Rice, Bakari W Unavailable Unavailable Rice, Bakari W Unavailable Unavailable NADERER, [phone] UNKNOWN Unavailable Unavailable NADERER, MARIBEL AVALOS Primary [...] NADERER, DR MARIBEL Mueller Primary Care Unavailable WEST, DR CONNIE José Consulting Unavailable NADERER, DR MARIBEL Mueller Admitting Unavailable NADERER, DR MARIBEL Mueller Attending Unavailable NADERER, DR MARIBEL Mueller Consulting Unavailable NADERER, DR MARIBEL Mueller Primary Care Unavailable NADERER, DR MARIBEL Mueller Consulting Unavailable FAWWAShana, SHAIKH Stephanie Admitting Unavailable FAWWAShana, SHAIKH Stephanie Attending Unavailable FAWWAShana, H Consulting Unavailable ISAMAR WATERS Consulting Unavailable [...] URI II, CHANO Consulting Unavailable FILUTZANAIS Calderon Unavailable BROCK FISHER JR Referring Unavailabl e NADERER, MARIBEL Primary Care Unavailable NATALIA ROME, BROCK Crandall Referring Unavailabl e NADERER, MARIBEL Primary Care Unavailable BROCK FISHER JR Attending Unavailabl e STEPANIC JR, BROCK Crandall Referring Unavailabl e NADERER, MARIBEL Primary Care Unavailable NATALIA ROME, BROCK Crandall Attending Unavailabl e STEPANIC JR, BROCK Crandall Referring Unavailabl e NADERER, MARIBEL Primary Care Unavailable NATALIA ROME, BROCK Crandall Attending Unavailabl e STEPANIC , BROCK Crandall Referring Unavailabl e NADERER, MARIBEL Primary Care Unavailable NADERER, MARIBEL Referring Unavailable NADERER, MARIBEL Primary Care Unavailable NADERER, MARIBEL Attending Unavailable ANAIS MELTON Attending Unavailable SAGE AMOS Attending Unavailable JR. NATALIA, BROCK Crandall Attending Unavaila ble STEPJR. ANA, BROCK Crandall Referring Unavaila ble SAGE AMOS Attending Unavailable ARIANNA GUY Attending Unavailable SAGE AMOS Referring Unavailable RAMBASESHARONA Walter Attending Unavailable SAGE AMOS Referring Unavailable NADERER, MARIBEL Attending Unavailable RAMBASEKSHARONA Attending Unavailable RAMBASEKSHARONA Attending Unavailable FAWSHAIKH CARPENTER Attending Unavailable NADERER, MARIBEL Attending Unavailable Allergies Allergy Classification Reported Allergen(s) Allergy Type Date of Onset Reaction(s) Facility (1 source) No Known Medication Allergies; Translations: [No Known Medication Allergies] Propensity to adverse reactions (disorder) [facility] Repository Medications Current Medications Medication Drug [...] every twenty-four hours Vitamin D3 50 MCG (1999) 1 capsule Orally Once a day Active docusate sodium 50 mg / sennosides, fci 8.6 mg oral tablet (2 sources) take [...] 2 Chronic Other aftercare (1 source) Other nursing home (current) drug therapy; Translations: [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] Onset: 3 Episodic Other aftercare (1 source) 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; Translations: [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] Onset: 3 Episodic Other aftercare (1 source) group home (current) use of oral hypoglycemic drugs; Translations: [RESIDENTIAL USE ORAL HYPOGLYCEMIC DX] Onset: 3 Episodic [...] Anion gap [Moles/Vol] 7 mmol/L Normal 5-15 [facility] Comment on above: Performed By: #### C BCA, BMP, HA1C #### [facility] ([id number]) [address], [address] [place] [address] Calcium [Mass/Vol] 9.7 mg/dL Normal 8.5-10.5 [facility] Comment on above: Performed By: #### C BCA, BMP, HA1C #### [facility] ([id number]) [address], [address] [place] [address] Chloride [Moles/Vol] 99 mmol/L Normal 98-109 [facility] Comment on above: Performed By: #### C SHANA, BMP, HA1C #### [facility] ([id number]) [address], [address] [place] [address] CO2 [Moles/Vol] 30 mmol/L Normal 22-32 [facility] Comment on above: Performed By: #### C SHANA, BMP, HA1C #### [facility] ([id number]) [address], [address] [place] [address] Creatinine [Mass/Vol] 1.09 mg/dL High 0.40-1.00 [facility] Comment on above: Result Comment: METH OD TRACEABLE TO IDMS STANDARD Performed By: #### C SHANA, BMP, HA1C #### [facility] ([id number]) [address], [address] [place] [address] GFR/1.73 sq M.predicted among non-blacks MDRD (S/P/Bld) [Vol rate/Area] 55 mL/min/{1.73_m2} Low >59 [facility] Comment on above: Result Comment: Reported eGFR is based on the CKD-EPI 2020 equation that does not use a race coefficient. Performed By: #### C BCA, BMP, HA1C #### [facility] ([id number]) [address], [address] [place] [address] Glucose [Mass/Vol] 109 mg/dL High 65-99 [facility] Comment on above: Performed By: #### C SELAM SALDANA, HA1C #### [facility] ([id number]) [address], [facility] [address] [place] [address] Potassium [Moles/Vol] 4.1 mmol/L Normal 3.5-5.0 [facility] Comment on above: Performed By: #### C SELAM SALDANA, HA1C #### [facility] ([id number]) [address], [facility] [address] [place] [address] Sodium [Moles/Vol] 136 mmol/L Normal 134-146 [facility] Comment on above: Performed By: #### C SELAM SALDANA, HA1C #### [facility] ([id number]) [address] [address] [place] [address] Urea nitrogen [Mass/Vol] 26 mg/dL Normal 5-27 [facility] Comment on above: Performed By: #### C SELAM SALDANA, HA1C #### [facility] ([id number]) [address] [address] [place] [address] CBC AND AUTO DIFFon 09-18- 24 ABSOLUTE BASOPHIL 0.1 X10E9/L Normal 0.0-0.2 [facility] Comment on above: Performed By: #### C SELAM SALDANA, HA1C #### [facility] ([id number]) [address], [facility] [address] [place] [address] ABSOLUTE NEUTROPHIL 3.1 X10E9/L Normal 1.5-6.6 [facility] Comment on above: Performed By: #### C SELAM SALDANA, HA1C #### [facility] ([id number]) [address] [address] [place] [address] Basophils/100 WBC (Bld) 1.1 % Normal [facility] Comment on above: Performed By: #### C SELAM SALDANA, HA1C #### [facility] ([id number]) [address], [address] [place] [address] Eosinophils (Bld) [#/Vol] 0.2 10*3/uL Normal 0.0-0.4 [facility] Comment on above: Performed By: #### C SELAM SALDANA, HA1C #### [facility] ([id number]) [address], [address] [place] [address] Eosinophils/100 WBC (Bld) 3.6 % Normal [facility] Comment on above: Performed By: #### C SELAM SALDANA, HA1C #### [facility] ([id number]) [address], [facility] [address] [place] [address] Erythrocyte distribution width (RBC) [Ratio] 13.3 % Normal 11.5-15.0 [facility] Comment on above: Performed By: #### SELAM Crandall BCA, HA1C #### [facility] ([id number]) [address], [address] [place] [address] Hematocrit (Bld) [Volume fraction] 36.8 % Normal 35-47 [facility] Comment on above: Performed By: #### SELAM Crandall BCA, HA1C #### [facility] ([id number]) [address] [address] [place] [address] Hemoglobin (Bld) [Mass/Vol] 12.0 g/dL Normal 11.7-15.5 [facility] Comment on above: Performed By: #### C SELAM SALDANA, HA1C #### [facility] ([id number]) [address], [address] [place] [address] Lymphocytes (Bld) [#/Vol] 1.5 10*3/uL Normal 1.0-3.5 [facility] Comment on above: Performed By: #### SELAM Crandall BCA, HA1C #### [facility] ([id number]) [address], [address] [place] [address] Lymphocytes/100 WBC (Bld) 26.2 % Normal [facility] Comment on above: Performed By: #### SELAM Crandall BCA, HA1C #### [facility] ([id number]) [address], [address] [place] [address] MCH (RBC) [Entitic mass] 30.0 pg Normal 27-34 [facility] Comment on above: Performed By: #### C SELAM SALDANA, HA1C #### [facility] ([id number]) [address], [address] [place] [address] MCHC (RBC) [Mass/Vol] 32.6 g/dL Normal 32-36 [facility] Comment on above: Performed By: #### SELAM Crandall BCA, HA1C #### [facility] ([id number]) [address], [address] [place] [address] MCV (RBC) [Entitic vol] 92 fL Normal 80-100 [facility] Comment on above: Performed By: #### SELAM Crandall BCA, HA1C #### [facility] ([id number]) [address], [address] [place] [address] Monocytes (Bld) [#/Vol] 0.7 10*3/uL Normal 0-0.9 [facility] Comment on above: Performed By: #### SELAM Crandall BCA, HA1C #### [facility] ([id number]) [address], [address] [place] [address] Monocytes/100 WBC (Bld) 13.1 % Normal [facility] Comment on above: Performed By: #### SELAM Crandall BCA, HA1C #### [facility] ([id number]) [address], [address] [place] [address] Neutrophils/100 WBC (Bld) 56.0 % Normal [facility] Comment on above: Performed By: #### SELAM Crandall BCA, HA1C #### [facility] ([id number]) [address], [address] [place] [address] Platelet mean volume (Bld) [Entitic vol] 9.6 fL Normal 7-12 [facility] Comment on above: Performed By: #### SELAM Crandall BCA, HA1C #### [facility] ([id number]) [address], [facility] [address] [place] [address] Platelets (Bld) [#/Vol] 274 10*3/uL Normal 150-450 [facility] Comment on above: Performed By: #### SELAM Crandall BCA, HA1C #### [facility] ([id number]) [address], [address] [place] [address] RBC COUNT 4.00 X10E12/L Normal 3.80-5.20 [facility] Comment on above: Performed By: #### SELAM Crandall BCA, HA1C #### [facility] ([id number]) [address], [facility] [address] [place] [address] WBC (Bld) [#/Vol] 5.6 10*3/uL Normal 4.0-11.0 [facility] Comment on above: Performed By: #### SELAM Crandall BCA, HA1C #### [facility] ([id number]) [address], [address] [place] [address] HGB A1C (GLYCO-HGB)on 2023 Glucose [Mass/Vol] 131 mg/dL Normal [facility] Comment on above: Performed By: #### SELAM Crandall BCA, HA1C #### [facility] ([id number]) [address], [facility] [address] [place] [address] HbA1c (Bld) [Mass fraction] 6.2 % High 4.4-5.6 [facility] Comment on above: Result Comment: NOTE ADA Guidelines Result HgbA1c Normal : less than 5.7 % Prediabetes : 5.7 % to 6.4 % Diabetes : > 6.4 % Use with caution in patients with abnormal hemoglobin variants as the half-life of red blood cells and in vivo glycation rates are affected. Performed By: #### C BCA, BMP, HA1C #### [facility] ([id number]) [address], [facility] [address] [place] [address] URINALYSISon 09-19-2023 Bilirubin Ql (U) Negative Normal NEG [facility] Comment on above: Performed By: #### U A #### [facility] ([id number]) [address] [address] BLOOD/HGB Negative Normal NEG [facility] Comment on above: Performed By: #### U A #### [facility] ([id number]) [address] [address] [place] [address] Color (U) YELLOW Normal YELLOW [facility] Comment on above: Performed By: #### U A #### [facility] ([id number]) [address] [address] Glucose Ql (U) Negative Normal NEG [facility] Comment on above: Performed By: #### U A #### [facility] ([id number]) [address] [address] [place] [address] Hyaline casts LM Ql (Urine sed) 1 /lpf Normal 0-2 [facility] Comment on above: Performed By: #### U A #### [facility] ([id number]) [address] [facility] [address] [place] [address] Ketones Ql (U) Negative Normal NEG [facility] Comment on above: Performed By: #### U A #### [facility] ([id number]) [address] [address] [place] [address] Leukocyte esterase Test strip Ql (U) Large Abnormal NEG [facility] Comment on above: Performed By: #### U A #### [facility] ([id number]) [facility] [facility], [address] [place] [address] MUCOUS PRESENT Abnormal NONE [facility] Comment on above: Performed By: #### U A #### [facility] ([id number]) [address] [place] [address], [address] [place] [address] Nitrite Ql (U) Negative Normal NEG [facility] Comment on above: Performed By: #### U A #### [facility] ([id number]) [address] [place] [address], [address] [place] [address] pH (U) 8.0 [pH] Normal 5.0-8.5 [facility] Comment on above: Performed By: #### U A #### [facility] ([id number]) [address] [place] [address], [address] [place] [address] Protein Ql (U) Trace Abnormal NEG [facility] Comment on above: Performed By: #### U A #### [facility] ([id number]) [address] [place] [address], [address] [place] [address] R.B.CELLS 4 /hpf Normal 0-5 [facility] Comment on above: Performed By: #### U A #### [facility] ([id number]) [address] [place] [address], [address] [place] [address] Specific gravity (U) [Rel density] 1.015 Normal 1.003-1.035 [facility] Comment on above: Performed By: #### U A #### [facility] ([id number]) [address] [place] [address] [address] [place] [address] SQUAMOUS EPITHELIUM 2 /hpf Normal 0-5 [facility] Comment on above: Performed By: #### U A #### [facility] ([id number]) [address], [address] [place] [address] TRANSITIONAL EPITH <1 High 0 [facility] Comment on above: Performed By: #### U A #### [facility] ([id number]) [address] [address] [place] [address] TURBIDITY HAZY Abnormal CLEAR [facility] Comment on above: Performed By: #### U A #### [facility] ([id number]) [address], [address] [place] [address] Urobilinogen (U) [Mass/Vol] mg/dL Normal <1.1 [facility] Comment on above: Performed By: #### U A #### [facility] ([id number]) [address] [address] W.B.CELLS 60 /hpf High 0-5 [facility] Comment on above: Performed By: #### U A #### [facility] ([id number]) [address] [address] URINE CULTUREon 09-19-2023 Bacteria identified Cx Nom (U) CULTURE RESULTS MULTIPLE SPECIES PRESENT. PROBABLE COLLECTION CONTAMINATION. SUGGEST REPEAT SPECIMEN. Normal [facility] Comment on above: Performed By: #### 6 30-4 #### [facility] ([id number]) [address] [address] XR CHEST 2 VWSon 09-19-2023 XR CHEST 2 VWS XR CHEST 2 VWS XR CHEST 2 VWS INDICATION: Preop examination; Hypertension, unspecified type; Type 2 diabetes mellitus without complication, without long-term current use of insulin ([facility]); Urinary frequency; Former smoker; Osteoarthritis of left hip, unspecified osteoarthritis type. FINDINGS: Cardiac silhouette is normal in size. Trachea midline. No focal pulmonary consolidation. No pleural effusion. No pneumothorax. IMPRESSION: 1. Unremarkable chest radiographs. Finalized by Sincere Charles MD on 09/19/2023 11:47 PM Normal [facility] PTH INTACTon 09-01-2022 PTH, Intact 26 pg/mL Normal 15-65 [facility] Comment on above: Performed By: #### P THINT #### [facility] [address] [address] [address] Nunu Borges CBC AUTO DIFFon 08-31-2022 BASO # 0.1 103/ul Normal 0.0-0.1 [facility] Comment on above: Performed By: #### U TIFFANIE, MG, RENAL #### [facility] [address] [address] [address] Nunu Borges Basophils/100 WBC (Bld) 1.2 % Normal 0.2-2.0 [facility] Comment on above: Performed By: #### U TIFFANIE, MG, RENAL #### [facility] [address] [place] [address] Dr. Nunu Borges EO # 0.1 103/ul Normal 0.0-0.7 [facility] Comment on above: Performed By: #### U TIFFANIE, MG, RENAL #### [facility] [address] [address] [address] Nunu Borges Eosinophils/100 WBC (Bld) 2.2 % Normal 0.9-7.0 [facility] Comment on above: Performed By: #### U TIFFANIE, MG, RENAL #### [facility] [address] [address] [address] Nunu Borges Erythrocyte distribution width (RBC) [Ratio] 12.7 % Normal 11.0-15.0 [facility] Comment on above: Performed By: #### U TIFFANIE, MG, RENAL #### [facility] [address] [address] [address] Nunu Borges Hematocrit (Bld) [Volume fraction] 38.0 % Normal 36.0-48.0 [facility] Comment on above: Performed By: #### U TIFFANIE, MG, RENAL #### [facility] [address] [address] [address] Nunu Borges Hemoglobin (Bld) [Mass/Vol] 12.5 g/dL Normal 12.0-16.0 [facility] Comment on above: Performed By: #### U TIFFANIE, MG, RENAL #### [facility] [address] [place] [address] Dr. Nunu Borges IG # 0.02 10e3/ul Normal 0.00-0.03 [facility] Comment on above: Performed By: #### U TIFFANIE, MG, RENAL #### [facility] [address] [place] [address] Dr. Nunu Borges IG % 0.3 % Normal 0.0-0.5 [facility] Comment on above: Performed By: #### U TIFFANIE, MG, RENAL #### [facility] [address] [place] [address] Dr. Nunu Borges LYMPH # 1.8 103/ul Normal 1.2-3.8 [facility] Comment on above: Performed By: #### U TIFFANIE, MG, RENAL #### [facility] [address] [place] [address] Dr. Nunu Borges Lymphocytes/100 WBC (Bld) 30.7 % Normal 20.5-60.0 [facility] Comment on above: Performed By: #### U TIFFANIE, MG, RENAL #### [facility] [address] [place] [address] Dr. Nunu Borges MANUAL DIFF REQ NO Normal [facility] Comment on above: Performed By: #### U TIFFANIE, MG, RENAL #### [facility] [address] [place] [address] Dr. Nunu Borges MCH (RBC) [Entitic mass] 29.8 pg Normal 26.7-34.0 [facility] Comment on above: Performed By: #### U TIFFANIE, MG, RENAL #### [facility] [address] [place] [address] Dr. Nunu Borges MCHC (RBC) [Mass/Vol] 32.9 g/dL Normal 29.9-35.2 [facility] Comment on above: Performed By: #### U TIFFANIE, MG, RENAL #### [facility] [address] [place] [address] Dr. Nunu Borges MCV (RBC) [Entitic vol] 90.5 fL Normal 81.0-99.0 [facility] Comment on above: Performed By: #### U TIFFANIE, MG, RENAL #### [facility] [address] [place] [address] Dr. Nunu Borges MONO # 0.7 103/ul Normal 0.3-0.8 [facility] Comment on above: Performed By: #### U TIFFANIE, MG, RENAL #### [facility] [address] [place] [address] Dr. Nunu Borges Monocytes/100 WBC (Bld) 12.4 % Critically high 1.7-12.0 [facility] Comment on above: Performed By: #### U TIFFANIE, MG, RENAL #### [facility] [address] [place] [address] Dr. Nunu Broges NEUT # 3.1 103/ul Normal 1.4-6.5 [facility] Comment on above: Performed By: #### U TIFFANIE, MG, RENAL #### [facility] [address] [place] [address] Dr. Nunu Borges Neutrophils/100 WBC (Bld) 53.2 % Normal 43.0-75.0 [facility] Comment on above: Performed By: #### U TIFFANIE, MG, RENAL #### [facility] [address] [place] [address] Dr. Nunu Borges Platelet mean volume (Bld) [Entitic vol] 11.3 fL Normal 9.5-13.5 [facility] Comment on above: Performed By: #### U TIFFANIE, MG, RENAL #### [facility] [address] [place] [address] Dr. Nunu Borges PLT 284 103/ul Normal 150-450 [facility] Comment on above: Performed By: #### U TIFFANIE, MG, RENAL #### [facility] [address] [place] [address] Dr. Nunu Borges RBC 4.20 106/ul Normal 4.20-5.40 [facility] Comment on above: Performed By: #### U TIFFANIE, MG, RENAL #### [facility] [address] [address] [address] Nunu Borges WBC 5.9 103/ul Normal 4.0-11.0 [facility] Comment on above: Performed By: #### U TIFFANIE, MG, RENAL #### [facility] [address] [address] [address] Nunu Borges FERRITINon 08-31-2022 Ferritin [Mass/Vol] 66.0 ng/mL Normal 8.0-252.0 [facility] Comment on above: Performed By: #### U TIFFANIE, MG, RENAL #### [facility] [address] [address] [address] Nunu Borges GLYCOHEMOGLOBIN A1Con 2022 ADA RECOMMENDATION SEE BELOW Normal [facility] Comment on above: Result Comment: ADA RECOMMENDED LIMIT 4.0 - 6.0 ADA THERAPEUTIC TARGET < 7.0 ACTION SUGGESTED > 7.0 Performed By: #### U TIFFANIE, MG, RENAL #### [facility] [address] [address] [address] Nunu Borges Glucose [Mass/Vol] 134 mg/dL Normal [facility] Comment on above: Performed By: #### U TIFFANIE, MG, RENAL #### [facility] [address] [address] [address] Nunu Borges HbA1c (Bld) [Mass fraction] 6.3 % Critically high 4.5-6.2 [facility] Comment on above: Performed By: #### U TIFFANIE, MG, RENAL #### [facility] [address] [address] [address] Nunu Borges IRON AND TIBCon 08-31-2022 % SATURATION 25.9 % Normal [facility] Comment on above: Performed By: #### U TIFFANIE, MG, RENAL #### [facility] [address] [address] [address] Nunu Borges Iron [Mass/Vol] 90.0 ug/dL Normal 50.0-170.0 [facility] Comment on above: Performed By: #### U TIFFANIE, MG, RENAL #### [facility] [address] [address] [address] Nunu Borges TIBC DIRECT 348.0 ug/dL Normal 250.0-450.0 [facility] Comment on above: Performed By: #### U TIFFANIE, MG, RENAL #### [facility] [address] [place] [address] Dr. Nunu Borges LIPID PROFILEon 08-31-2022 CHOL-HDL RATIO NORM SEE BELOW Normal [facility] Comment on above: Result Comment: 3.3 - 4.4 LOW RISK 4.4 - 7.1 AVERAGE RISK 7.1 - 11.0 MODERATE RISK >11.0 HIGH RISK Performed By: #### U TIFFANIE, MG, RENAL #### [facility] [address] [place] [address] Dr. Nunu Borges Cholesterol [Mass/Vol] 152 mg/dL Normal <=200 [facility] Comment on above: Performed By: #### U TIFFANIE, MG, RENAL #### [facility] [address] [place] [address] Dr. Nunu Borges Cholesterol in HDL [Mass/Vol] 77 mg/dL Critically high 40-60 [facility] Comment on above: Performed By: #### U TIFFANIE, MG, RENAL #### [facility] [address] [address] [address] Nunu Borges Cholesterol in LDL [Mass/Vol] 63.2 mg/dL Normal [facility] Comment on above: Performed By: #### U TIFFANIE, MG, RENAL #### [facility] [address] [place] [address] Dr. Nunu Borges Cholesterol.total/Ch olesterol in HDL [Mass ratio] 2.0 {ratio} Normal [facility] Comment on above: Performed By: #### U TIFFANIE, MG, RENAL #### [facility] [address] [place] [address] Dr. Nunu Borges HDL NORMAL > or = 60 mg/dl - LOW CARDIOVASCULAR RISK <40 mg/dl - HIGH CARDIOVASCULAR RISK Normal [facility] Comment on above: Performed By: #### U TIFFANIE, MG, RENAL #### [facility] [address] [place] [address] Dr. Nunu Borges LDL CALC NORMAL SEE BELOW Normal [facility] Comment on above: Result Comment: <100 mg/dl OPTIMAL 100 - 129 mg/dl NEAR OR ABOVE OPTIMAL 130 - 159 mg/dl BORDERLINE HIGH 160 - 189 mg/dl HIGH >190 mg/dl VERY HIGH Performed By: #### U TIFFANIE, MG, RENAL #### [facility] [address] [address] [address] Nunu Borges Triglyceride [Mass/Vol] 59 mg/dL Normal <=150 [facility] Comment on above: Performed By: #### U TIFFANIE, MG, RENAL #### [facility] [address] [address] [address] Nunu Borges VLDL CALC 11.8 mg/dL Normal [facility] Comment on above: Performed By: #### U TIFFANIE, MG, RENAL #### [facility] [address] [address] [address] Nunu Borges LIVER PROFILEon 08-31-2022 Albumin/Globulin [Mass ratio] 1.1 {ratio} Normal [facility] Comment on above: Performed By: #### U TIFFANIE, MG, RENAL #### [facility] [address] [address] [address] Nunu Borges ALP [Catalytic activity/Vol] 129 U/L Critically high 46-116 [facility] Comment on above: Performed By: #### U TIFFANIE, MG, RENAL #### [facility] [address] [address] [address] Nunu Borges ALT [Catalytic activity/Vol] 32 U/L Normal 14-59 [facility] Comment on above: Performed By: #### U TIFFANIE, MG, RENAL #### [facility] [address] [address] [address] Nunu Borges AST [Catalytic activity/Vol] 20 U/L Normal 15-37 [facility] Comment on above: Performed By: #### U TIFFANIE, MG, RENAL #### [facility] [address] [address] [address] Nunu Borges BILI, CONJUGATED 0.2 mg/dL Normal 0.0-0.2 [facility] Comment on above: Performed By: #### U TIFFANIE, MG, RENAL #### [facility] [address] [place] [address] Dr. Nunu Borges Bilirubin [Mass/Vol] 0.8 mg/dL Normal 0.2-1.0 [facility] Comment on above: Performed By: #### U TIFFANIE, MG, RENAL #### [facility] [address] [place] [address] Dr. Nunu Borges Globulin (S) [Mass/Vol] 3.6 g/dL Normal [facility] Comment on above: Performed By: #### U TIFFANIE, MG, RENAL #### [facility] [address] [place] [address] Dr. Nunu Borges Protein [Mass/Vol] 7.5 g/dL Normal 6.4-8.2 [facility] Comment on above: Performed By: #### U TIFFANIE, MG, RENAL #### [facility] [address] [place] [address] Dr. Nunu Borges MAGNESIUMon 08-31-2022 Magnesium [Mass/Vol] 1.8 mg/dL Normal 1.8-2.4 [facility] Comment on above: Performed By: #### U TIFFANIE, MG, RENAL #### [facility] [address] [place] [address] Dr. Nunu Borges MICROALBUMIN, RAND URon 08-08 mALB <1.3 Normal <=30.0 [facility] Comment on above: Performed By: #### U TIFFANIE, MG, RENAL #### [facility] [address] [place] [address] Dr. Nunu Borges PROF CHEM 8 (BAS METB)on Anion gap [Moles/Vol] 14.3 mmol/L Normal [facility] Comment on above: Performed By: #### U TIFFANIE, MG, RENAL #### [facility] [address] [place] [address] Dr. Nunu Borges CO2 [Moles/Vol] 27.7 mmol/L Normal 21.0-32.0 [facility] Comment on above: Performed By: #### U TIFFANIE, MG, RENAL #### [facility] [address] [address] [address] Nunu Borges Glucose [Mass/Vol] 119 mg/dL Critically high 74-106 [facility] Comment on above: Performed By: #### U TIFFANIE, MG, RENAL #### [facility] [address] [address] [address] Nunu Borges Urea nitrogen/Creatinine [Mass ratio] 22.7 mg/mg Normal [facility] Comment on above: Performed By: #### U TIFFANIE, MG, RENAL #### [facility] [address] [address] [address] Nunu Borges RENAL FUNCTION PANELon 08-31 Albumin [Mass/Vol] 3.9 g/dL Normal 3.4-5.0 [facility] Comment on above: Performed By: #### U TIFFANIE, MG, RENAL #### [facility] [address] [address] [address] Nunu Borges Calcium [Mass/Vol] 9.7 mg/dL Normal 8.5-10.1 [facility] Comment on above: Performed By: #### U TIFFANIE, MG, RENAL #### [facility] [address] [address] [address] Nunu Borges Chloride [Moles/Vol] 99 mmol/L Normal 98-107 [facility] Comment on above: Performed By: #### U TIFFANIE, MG, RENAL #### [facility] [address] [address] [address] Nunu Borges CO2 [Moles/Vol] 28.0 mmol/L Normal 21.0-32.0 [facility] Comment on above: Performed By: #### U TIFFANIE, MG, RENAL #### [facility] [address] [address] [address] Nunu Borges Creatinine [Mass/Vol] 1.32 mg/dL Critically high 0.55-1.02 [facility] Comment on above: Performed By: #### U TIFFANIE, MG, RENAL #### [facility] [address] [address] [address] Nunu Borges EGFR-AF GIBRALTARIAN 49 mL/min/1.73m2 Critically low >=60 [facility] Comment on above: Performed By: #### U TIFFANIE, MG, RENAL #### [facility] [address] [address] [address] Nunu Borges EGFR-NON AF GIBRALTARIAN 40 mL/min/1.73m2 Critically low >=60 [facility] Comment on above: Performed By: #### U TIFFANIE, MG, RENAL #### [facility] [address] [address] [address] Nunu Borges Glucose [Mass/Vol] 118 mg/dL Critically high 74-106 [facility] Comment on above: Performed By: #### U TIFFANIE, MG, RENAL #### [facility] [address] [address] [address] Nunu Borges Phosphate [Mass/Vol] 3.6 mg/dL Normal 2.6-4.7 [facility] Comment on above: Performed By: #### U TIFFANIE, MG, RENAL #### [facility] [address] [place] [address] Dr. Nunu Borges Potassium [Moles/Vol] 4.0 mmol/L Normal 3.5-5.1 [facility] Comment on above: Performed By: #### U TIFFANIE, MG, RENAL #### [facility] [address] [place] [address] Dr. Nunu Borges Sodium [Moles/Vol] 137 mmol/L Normal 136-145 [facility] Comment on above: Performed By: #### U TIFFANIE, MG, RENAL #### [facility] [address] [place] [address] Dr. Nunu Borges Urea nitrogen [Mass/Vol] 30.0 mg/dL Critically high 7.0-18.0 [facility] Comment on above: Performed By: #### U TIFFANIE, MG, RENAL #### [facility] [address] [place] [address] Dr. Nunu Borges UA RANDOM W/MICROSCOPICon BACTERIA NONE SEEN Normal NONE SEEN [facility] Comment on above: Performed By: #### U AMIC #### [facility] [address] [address] [address] Nunu Borges Bilirubin Ql (U) Negative Normal NEGATIVE [facility] Comment on above: Performed By: #### U AMIC #### [facility] [address] [address] [address] Nunu Borges CAST NONE SEEN Normal NONE SEEN [facility] Comment on above: Performed By: #### U AMIC #### [facility] [address] [address] [address] Nunu Borges Clarity (U) CLEAR Normal CLEAR [facility] Comment on above: Performed By: #### U AMIC #### [facility] [address] [address] [address] Nunu Borges Color (U) LT. YELLOW Normal YELLOW [facility] Comment on above: Performed By: #### U AMIC #### [facility] [address] [address] [address] Nunu Borges Crystals LM Nom (Urine sed) NONE SEEN Normal NONE SEEN [facility] Comment on above: Performed By: #### U AMIC #### [facility] [address] [address] [address] Nunu Borges Epithelial cells LM Ql (Urine sed) FEW Abnormal NONE SEEN /RARE [facility] Comment on above: Performed By: #### U AMIC #### [facility] [address] [place] [address] Dr. Nunu Borges Glucose Ql (U) Negative Normal NEGATIVE [facility] Comment on above: Performed By: #### U AMIC #### [facility] [address] [place] [address] Dr. Nunu Borges Hemoglobin Ql (U) Negative Normal NEGATIVE [facility] Comment on above: Performed By: #### U AMIC #### [facility] [address] [address] [address] Nunu Borges Ketones Ql (U) Negative Normal NEGATIVE [facility] Comment on above: Performed By: #### U AMIC #### [facility] [address] [place] [address] Dr. Nunu Borges LEUKOCYTES TRACE Abnormal NEGATIVE [facility] Comment on above: Performed By: #### U AMIC #### [facility] [address] [address] [address] Nunu Borges MUCOUS NONE SEEN Normal NONE SEEN [facility] Comment on above: Performed By: #### U AMIC #### [facility] [address] [address] [address] Nunu Borges Nitrite Ql (U) Negative Normal NEGATIVE [facility] Comment on above: Performed By: #### U AMIC #### [facility] [address] [address] [address] Nunu Borges pH (U) 6.0 [pH] Normal 5-9 [facility] Comment on above: Performed By: #### U AMIC #### [facility] [address] [place] [address] Dr. Nunu Borges RBC NONE SEEN Abnormal 0-2 [facility] Comment on above: Performed By: #### U AMIC #### [facility] [address] [place] [address] Dr. Nunu Borgse SPEC GRAVITY 1.015 Normal 1.005-<=1.025 [facility] Comment on above: Performed By: #### U AMIC #### [facility] [address] [place] [address] Dr. Nunu Borges UA PROTEIN Negative Normal NEGATIVE/ TRACE [facility] Comment on above: Performed By: #### U AMIC #### [facility] [address] [address] [address] Nuun Borges Urobilinogen Qn (U) 0.2 {Myriam'U}/dL Normal 0.2 - 1. 0 [facility] Comment on above: Performed By: #### U AMIC #### [facility] [address] [place] [address] Dr. Nunu Borges WBC 2-5 Abnormal NONE SEEN [facility] Comment on above: Performed By: #### U AMIC #### [facility] [address] [place] [address] Dr. Nunu Borges URIC ACID SERUMon 08-31-2022 Urate [Mass/Vol] 6.3 mg/dL Critically high 2.6-6.0 [facility] Comment on above: Performed By: #### U TIFFANIE, MG, RENAL #### [facility] [address] [place] [address] Dr. Nunu Borges URINE T PROTEIN CREAT RATIOo n 08-31-2022 Protein (U) [Mass/Vol] 13.3 mg/dL Critically high <=12.0 [facility] Comment on above: Performed By: #### U TIFFANIE, MG, RENAL #### [facility] [address] [place] [address] Dr. Nunu Borges UR PROT CREAT RAT 0.11 [facility] Comment on above: Performed By: #### U TIFFANIE, MG, RENAL #### [facility] [address] [place] [address] Dr. Nunu Borges URINE CREAT 121.05 mg/dL Normal 20.00-300.00 [facility] Comment on above: Performed By: #### U TIFFANIE, MG, RENAL #### [facility] [address] [place] [address] Dr. Nunu Borges VITAMIN D 25 OHon 08-31-2022 VIT D 25-OH 79.7 ng/mL Normal [facility] Comment on above: Performed By: #### U TIFFANIE, MG, RENAL #### [facility] [address] [place] [address] Dr. Nunu Borges VIT D RANGES SEE BELOW Normal [facility] Comment on above: Result Comment: <20 ng/mL Vit D deficient 20 - <30 ng/mL Vit D insufficient 30 - 100 ng/mL Vit D sufficient >100 ng/mL Potential Toxicity Performed By: #### U TIFFANIE, MG, RENAL #### [facility] [address] [place] [address] Dr. Nunu Borges POINT OF CARE GLUCOSEon 04- Glucose [Mass/Vol] 132 mg/dL Critically high 74-106 [facility] Comment on above: Performed By: #### U AMIC #### [facility] [address] [place] [address] Dr. Nunu Borges PTH INTACTon 02-15-2022 PTH, Intact 36 pg/mL Normal 15-65 [facility] Comment on above: Performed By: #### U TIFFANIE, MG, RENAL #### [facility] [address] [place] [address] Dr. Nunu Borges UA RANDOM W/MICROSCOPICon BACTERIA TRACE Abnormal NONE SEEN [facility] Comment on above: Performed By: #### U AMIC #### [facility] [address] [place] [address] Dr. Nunu Borges Bilirubin Ql (U) Negative Normal NEGATIVE [facility] Comment on above: Performed By: #### U AMIC #### [facility] [address] [place] [address] Dr. Nunu Borges CAST NONE SEEN Normal NONE SEEN [facility] Comment on above: Performed By: #### U AMIC #### [facility] [address] [place] [address] Dr. Nunu Borges Clarity (U) CLEAR Normal CLEAR [facility] Comment on above: Performed By: #### U AMIC #### [facility] [address] [place] [address] Dr. Nunu Borges Color (U) LT. YELLOW Normal YELLOW [facility] Comment on above: Performed By: #### U AMIC #### [facility] [address] [place] [address] Dr. Nunu Borges Crystals LM Nom (Urine sed) NONE SEEN Normal NONE SEEN [facility] Comment on above: Performed By: #### U AMIC #### [facility] [address] [place] [address] Dr. uNnu Borges Epithelial cells LM Ql (Urine sed) FEW Abnormal NONE SEEN /RARE [facility] Comment on above: Performed By: #### U AMIC #### [facility] [address] [place] [address] Dr. Nunu Borges Glucose Ql (U) Negative Normal NEGATIVE [facility] Comment on above: Performed By: #### U AMIC #### [facility] [address] [place] [address] Dr. Nunu Borges Hemoglobin Ql (U) Negative Normal NEGATIVE [facility] Comment on above: Performed By: #### U AMIC #### [facility] [address] [address] [address] Nunu Borges Ketones Ql (U) Negative Normal NEGATIVE [facility] Comment on above: Performed By: #### U AMIC #### [facility] [address] [address] [address] Nunu Borges LEUKOCYTES SMALL Abnormal NEGATIVE [facility] Comment on above: Performed By: #### U AMIC #### [facility] [address] [address] [address] Nunu Borges MUCOUS NONE SEEN Normal NONE SEEN [facility] Comment on above: Performed By: #### U AMIC #### [facility] [address] [place] [address] Dr. Nunu Borges Nitrite Ql (U) Negative Normal NEGATIVE [facility] Comment on above: Performed By: #### U AMIC #### [facility] [address] [place] [address] Dr. Nunu Borges pH (U) 7.0 [pH] Normal 5-9 [facility] Comment on above: Performed By: #### U AMIC #### [facility] [address] [place] [address] Dr. Nunu Borges RBC NONE SEEN Abnormal 0-2 [facility] Comment on above: Performed By: #### U AMIC #### [facility] [address] [address] [address] Nunu Borges SPEC GRAVITY 1.010 Normal 1.005-<=1.025 [facility] Comment on above: Performed By: #### U AMIC #### [facility] [address] [place] [address] Dr. Nunu Borges UA PROTEIN Negative Normal NEGATIVE/ TRACE [facility] Comment on above: Performed By: #### U AMIC #### [facility] [address] [place] [address] Dr. Nunu Borges Urobilinogen Qn (U) 0.2 {Myriam'U}/dL Normal 0.2 - 1. 0 [facility] Comment on above: Performed By: #### U AMIC #### [facility] [address] [address] [address] Nunu Borges WBC 5-10 Abnormal NONE SEEN [facility] Comment on above: Performed By: #### U AMIC #### [facility] [address] [address] [address] Nunu Borges FERRITINon 02-13-2022 Ferritin [Mass/Vol] 72.0 ng/mL Normal 8.0-252.0 [facility] Comment on above: Performed By: #### U TIFFANIE, MG, RENAL #### [facility] [address] [place] [address] Dr. Nunu Borges GLYCOHEMOGLOBIN A1Con 2021 ADA RECOMMENDATION SEE BELOW Normal [facility] Comment on above: Result Comment: ADA RECOMMENDED LIMIT 4.0 - 6.0 ADA THERAPEUTIC TARGET < 7.0 ACTION SUGGESTED > 7.0 Performed By: #### A 1C #### [facility] [address] [place] [address] Dr. Nunu Borges Glucose [Mass/Vol] 143 mg/dL Normal [facility] Comment on above: Performed By: #### A 1C #### [facility] [address] [place] [address] Dr. Nunu Borges HbA1c (Bld) [Mass fraction] 6.6 % Critically high 4.5-6.2 [facility] Comment on above: Performed By: #### A 1C #### [facility] [address] [place] [address] Dr. Nunu Borges HEMOGRAM AND PLATELon 2021 Hematocrit (Bld) [Volume fraction] 36.1 % Normal 36.0-48.0 [facility] Comment on above: Performed By: #### U TIFFANIE, MG, RENAL #### [facility] [address] [place] [address] Dr. Nunu Borges Hemoglobin (Bld) [Mass/Vol] 11.5 g/dL Critically low 12.0-16.0 [facility] Comment on above: Performed By: #### U TIFFANIE, MG, RENAL #### [facility] [address] [address] [address] Nunu Borges MCH (RBC) [Entitic mass] 29.1 pg Normal 26.7-34.0 [facility] Comment on above: Performed By: #### U TIFFANIE, MG, RENAL #### [facility] [address] [place] [address] Dr. Nunu Borges MCHC (RBC) [Mass/Vol] 31.9 g/dL Normal 29.9-35.2 [facility] Comment on above: Performed By: #### U TIFFANIE, MG, RENAL #### [facility] [address] [place] [address] Dr. Nunu Borges MCV (RBC) [Entitic vol] 91.4 fL Normal 81.0-99.0 [facility] Comment on above: Performed By: #### U TIFFANIE, MG, RENAL #### [facility] [address] [place] [address] Dr. Nunu Borges PLT 348 103/ul Normal 150-450 [facility] Comment on above: Performed By: #### U TIFFANIE, MG, RENAL #### [facility] [address] [place] [address] Dr. Nunu Borges RBC 3.95 106/ul Critically low 4.20-5.40 [facility] Comment on above: Performed By: #### U TIFFANIE, MG, RENAL #### [facility] [address] [place] [address] Dr. Nunu Borges WBC 4.4 103/ul Normal 4.0-11.0 [facility] Comment on above: Performed By: #### U TIFFANIE, MG, RENAL #### [facility] [address] [place] [address] Dr. Nunu Borges IRON AND TIBCon 02-13-2022 % SATURATION 17.1 % Normal [facility] Comment on above: Performed By: #### U TIFFANIE, MG, RENAL #### [facility] [address] [place] [address] Dr. Nunu Borges Iron [Mass/Vol] 56.0 ug/dL Normal 50.0-170.0 [facility] Comment on above: Performed By: #### U TIFFANIE, MG, RENAL #### [facility] [address] [address] [address] Nunu Borges TIBC DIRECT 327.0 ug/dL Normal 250.0-450.0 [facility] Comment on above: Performed By: #### U TIFFANIE, MG, RENAL #### [facility] [address] [address] [address] Nunu Borges MAGNESIUMon 02-13-2022 Magnesium [Mass/Vol] 1.8 mg/dL Normal 1.8-2.4 [facility] Comment on above: Performed By: #### U TIFFANIE, MG, RENAL #### [facility] [address] [address] [address] Nunu Borges RENAL FUNCTION PANELon 02-13 Albumin [Mass/Vol] 3.7 g/dL Normal 3.4-5.0 [facility] Comment on above: Performed By: #### U TIFFANIE, MG, RENAL #### [facility] [address] [address] [address] Nunu Borges Calcium [Mass/Vol] 9.4 mg/dL Normal 8.5-10.1 [facility] Comment on above: Performed By: #### U TIFFANIE, MG, RENAL #### [facility] [address] [address] [address] Nunu Borges Chloride [Moles/Vol] 100 mmol/L Normal 98-107 [facility] Comment on above: Performed By: #### U TIFFANIE, MG, RENAL #### [facility] [address] [address] [address] Nunu Borges CO2 [Moles/Vol] 30.0 mmol/L Normal 21.0-32.0 [facility] Comment on above: Performed By: #### U TIFFANIE, MG, RENAL #### [facility] [address] [address] [address] Nunu Borges Creatinine [Mass/Vol] 1.31 mg/dL Critically high 0.55-1.02 [facility] Comment on above: Performed By: #### U TIFFANIE, MG, RENAL #### [facility] [address] [place] [address] Dr. Nunu Borges EGFR-AF GIBRALTARIAN 49 mL/min/1.73m2 Critically low >=60 [facility] Comment on above: Performed By: #### U TIFFANIE, MG, RENAL #### [facility] [address] [place] [address] Dr. Nunu Borges EGFR-NON AF GIBRALTARIAN 40 mL/min/1.73m2 Critically low >=60 [facility] Comment on above: Performed By: #### U TIFFANIE, MG, RENAL #### [facility] [address] [place] [address] Dr. Nuun Borges Glucose [Mass/Vol] 98 mg/dL Normal 74-106 [facility] Comment on above: Performed By: #### U TIFFANIE, MG, RENAL #### [facility] [address] [place] [address] Dr. Nunu Borges Phosphate [Mass/Vol] 3.0 mg/dL Normal 2.6-4.7 [facility] Comment on above: Performed By: #### U TIFFANIE, MG, RENAL #### [facility] [address] [place] [address] Dr. Nunu Borges Potassium [Moles/Vol] 4.4 mmol/L Normal 3.5-5.1 [facility] Comment on above: Performed By: #### U TIFFANIE, MG, RENAL #### [facility] [address] [place] [address] Dr. Nunu Borges Sodium [Moles/Vol] 133 mmol/L Critically low 136-145 [facility] Comment on above: Performed By: #### U TIFFANIE, MG, RENAL #### [facility] [address] [place] [address] Dr. Nunu Borges Urea nitrogen [Mass/Vol] 23.0 mg/dL Critically high 7.0-18.0 [facility] Comment on above: Performed By: #### U TIFFANIE, MG, RENAL #### [facility] [address] [place] [address] Dr. Nunu Borges URIC ACID SERUMon 02-13-2022 Urate [Mass/Vol] 5.9 mg/dL Normal 2.6-6.0 [facility] Comment on above: Performed By: #### U TIFFANIE, MG, RENAL #### [facility] [address] [place] [address] Dr. Nunu Borges VITAMIN D 25 OHon 02-13-2022 VIT D 25-OH 70.3 ng/mL Normal [facility] Comment on above: Performed By: #### U TIFFANIE, MG, RENAL #### [facility] [address] [place] [address] Dr. Nunu Borges VIT D RANGES SEE BELOW Normal [facility] Comment on above: Result Comment: <20 ng/mL Vit D deficient 20 - <30 ng/mL Vit D insufficient 30 - 100 ng/mL Vit D sufficient >100 ng/mL Potential Toxicity Performed By: #### U TIFFANIE, MG, RENAL #### [facility] [address] [place] [address] Dr. Nunu Borges CBC AUTO DIFFon 01-27-2022 BASO # 0.0 103/ul Normal 0.0-0.1 [facility] Comment on above: Performed By: #### U TIFFANIE, MG, RENAL #### [facility] [address] [place] [address] Dr. Nunu Borges Basophils/100 WBC (Bld) 0.2 % Normal 0.2-2.0 [facility] Comment on above: Performed By: #### U TIFFANIE, MG, RENAL #### [facility] [address] [place] [address] Dr. Nunu Borges EO # 0.1 103/ul Normal 0.0-0.7 [facility] Comment on above: Performed By: #### U TIFFANIE, MG, RENAL #### [facility] [address] [place] [address] Dr. Nunu Borges Eosinophils/100 WBC (Bld) 0.9 % Normal 0.9-7.0 [facility] Comment on above: Performed By: #### U TIFFANIE, MG, RENAL #### [facility] [address] [address] [address] Nunu Borges Erythrocyte distribution width (RBC) [Ratio] 12.5 % Normal 11.0-15.0 [facility] Comment on above: Performed By: #### U TIFFANIE, MG, RENAL #### [facility] [address] [address] [address] Nunu Borges Hematocrit (Bld) [Volume fraction] 32.5 % Critically low 36.0-48.0 [facility] Comment on above: Performed By: #### U TIFFANIE, MG, RENAL #### [facility] [address] [address] [address] Nunu Borges Hemoglobin (Bld) [Mass/Vol] 10.9 g/dL Critically low 12.0-16.0 [facility] Comment on above: Performed By: #### U TIFFANIE, MG, RENAL #### [facility] [address] [address] [address] Nunu Borges IG # 0.14 10e3/ul Critically high 0.00-0.03 [facility] Comment on above: Performed By: #### U TIFFANIE, MG, RENAL #### [facility] [address] [address] [address] Nunu Borges IG % 1.5 % Critically high 0.0-0.5 [facility] Comment on above: Performed By: #### U TIFFANIE, MG, RENAL #### [facility] [address] [address] [address] Nunu Bogres LYMPH # 1.5 103/ul Normal 1.2-3.8 [facility] Comment on above: Performed By: #### U TIFFANIE, MG, RENAL #### [facility] [address] [address] [address] Nunu Borges Lymphocytes/100 WBC (Bld) 15.5 % Critically low 20.5-60.0 [facility] Comment on above: Performed By: #### U TIFFANIE, MG, RENAL #### [facility] [address] [address] [address] Nunu Borges MANUAL DIFF REQ NO Normal [facility] Comment on above: Performed By: #### U TIFFANIE, MG, RENAL #### [facility] [address] [address] [address] Nunu Borges MCH (RBC) [Entitic mass] 29.6 pg Normal 26.7-34.0 [facility] Comment on above: Performed By: #### U TIFFANIE, MG, RENAL #### [facility] [address] [place] [address] Dr. Nunu Borges MCHC (RBC) [Mass/Vol] 33.5 g/dL Normal 29.9-35.2 [facility] Comment on above: Performed By: #### U TIFFANIE, MG, RENAL #### [facility] [address] [place] [address] Dr. Nunu Borges MCV (RBC) [Entitic vol] 88.3 fL Normal 81.0-99.0 [facility] Comment on above: Performed By: #### U TIFFANIE, MG, RENAL #### [facility] [address] [place] [address] Dr. Nunu Borges MONO # 1.2 103/ul Critically high 0.3-0.8 [facility] Comment on above: Performed By: #### U TIFFANIE, MG, RENAL #### [facility] [address] [place] [address] Dr. Nunu Borges Monocytes/100 WBC (Bld) 12.9 % Critically high 1.7-12.0 [facility] Comment on above: Performed By: #### U TIFFANIE, MG, RENAL #### [facility] [address] [place] [address] Dr. Nunu Borges NEUT # 6.5 103/ul Normal 1.4-6.5 [facility] Comment on above: Performed By: #### U TIFFANIE, MG, RENAL #### [facility] [address] [place] [address] Dr. Nunu Borges Neutrophils/100 WBC (Bld) 69.0 % Normal 43.0-75.0 [facility] Comment on above: Performed By: #### U TIFFANIE, MG, RENAL #### [facility] [address] [place], [place] [id number] Dr. Nunu Borges Platelet mean volume (Bld) [Entitic vol] 11.8 fL Normal 9.5-13.5 [facility] Comment on above: Performed By: #### U TIFFANIE, MG, RENAL #### [facility] [address] [address] [address] Nunu Borges PLT 239 103/ul Normal 150-450 [facility] Comment on above: Performed By: #### U TIFFANIE, MG, RENAL #### [facility] [address] [address] [address] Nunu Borges RBC 3.68 106/ul Critically low 4.20-5.40 [facility] Comment on above: Performed By: #### U TIFFANIE, MG, RENAL #### [facility] [address] [place] [address] Dr. Nunu Borges WBC 9.4 103/ul Normal 4.0-11.0 [facility] Comment on above: Performed By: #### U TIFFANIE, MG, RENAL #### [facility] [address] [place] [address] Dr. Nunu Borges POINT OF CARE GLUCOSEon 01-08 Glucose [Mass/Vol] 226 mg/dL Critically high 74-106 [facility] Comment on above: Performed By: #### U TIFFANIE, MG, RENAL #### [facility] [address] [place] [address] Dr. Nunu Borges PROF CHEM 8 (BAS METB)on Anion gap [Moles/Vol] 10.5 mmol/L Normal [facility] Comment on above: Performed By: #### U TIFFANIE, MG, RENAL #### [facility] [address] [address] [address] Nunu Borges Calcium [Mass/Vol] 8.2 mg/dL Critically low 8.5-10.1 [facility] Comment on above: Performed By: #### U TIFFANIE, MG, RENAL #### [facility] [address] [address] [address] Nunu Borges Chloride [Moles/Vol] 103 mmol/L Normal 98-107 [facility] Comment on above: Performed By: #### U TIFFANIE, MG, RENAL #### [facility] [address] [address] [address] Nunu Borges CO2 [Moles/Vol] 26.0 mmol/L Normal 21.0-32.0 [facility] Comment on above: Performed By: #### U TIFFANIE, MG, RENAL #### [facility] [address] [address] [address] Nunu Borges Creatinine [Mass/Vol] 1.04 mg/dL Critically high 0.55-1.02 [facility] Comment on above: Performed By: #### U TIFFANIE, MG, RENAL #### [facility] [address] [place] [address] Dr. Nunu Borges EGFR-AF GIBRALTARIAN >60 Normal >=60 [facility] Comment on above: Performed By: #### U TIFFANIE, MG, RENAL #### [facility] [address] [place] [address] Dr. Nunu Borges EGFR-NON AF GIBRALTARIAN 53 mL/min/1.73m2 Critically low >=60 [facility] Comment on above: Performed By: #### U TIFFANIE, MG, RENAL #### [facility] [address] [place] [address] Dr. Nunu Borges Glucose [Mass/Vol] 91 mg/dL Normal 74-106 [facility] Comment on above: Performed By: #### U TIFFANIE, MG, RENAL #### [facility] [address] [place] [address] Dr. Nunu Borges Potassium [Moles/Vol] 3.5 mmol/L Normal 3.5-5.1 [facility] Comment on above: Performed By: #### U TIFFANIE, MG, RENAL #### [facility] [address] [place] [address] Dr. Nunu Borges Sodium [Moles/Vol] 136 mmol/L Normal 136-145 [facility] Comment on above: Performed By: #### U TIFFANIE, MG, RENAL #### [facility] [address] [place] [address] Dr. Nunu Borges Urea nitrogen [Mass/Vol] 32.0 mg/dL Critically high 7.0-18.0 [facility] Comment on above: Performed By: #### U TIFFANIE, MG, RENAL #### [facility] [address] [place] [address] Dr. Nunu Borges Urea nitrogen/Creatinine [Mass ratio] 30.8 mg/mg Normal [facility] Comment on above: Performed By: #### U TIFFANIE, MG, RENAL #### [facility] [address] [place] [address] Dr. Nunu Borges CBC AUTO DIFFon 01-26-2022 BASO # 0.0 103/ul Normal 0.0-0.1 [facility] Comment on above: Performed By: #### C BC #### [facility] [address] [place] [address] Dr. Nunu Borges Basophils/100 WBC (Bld) 0.1 % Critically low 0.2-2.0 [facility] Comment on above: Performed By: #### C BC #### [facility] [address] [place] [address] Dr. Nunu Borges EO # 0.1 103/ul Normal 0.0-0.7 [facility] Comment on above: Performed By: #### C BC #### [facility] [address] [place] [address] Dr. Nunu Borges Eosinophils/100 WBC (Bld) 0.4 % Critically low 0.9-7.0 [facility] Comment on above: Performed By: #### C BC #### [facility] [address] [place] [address] Dr. Nunu Borges Erythrocyte distribution width (RBC) [Ratio] 12.2 % Normal 11.0-15.0 [facility] Comment on above: Performed By: #### C BC #### [facility] [address] [place] [address] Dr. Nunu Borges Hematocrit (Bld) [Volume fraction] 36.7 % Normal 36.0-48.0 [facility] Comment on above: Performed By: #### C BC #### [facility] [address] [address] [address] Nunu Borges Hemoglobin (Bld) [Mass/Vol] 12.1 g/dL Normal 12.0-16.0 [facility] Comment on above: Performed By: #### C BC #### [facility] [address] [place] [address] Dr. Nunu Borges IG # 0.42 10e3/ul Critically high 0.00-0.03 [facility] Comment on above: Performed By: #### C BC #### [facility] [address] [place] [address] Dr. Nunu Borges IG % 2.4 % Critically high 0.0-0.5 [facility] Comment on above: Performed By: #### C BC #### [facility] [address] [place] [address] Dr. Nunu Borges LYMPH # 0.8 103/ul Critically low 1.2-3.8 [facility] Comment on above: Performed By: #### C BC #### [facility] [address] [place] [address] Dr. Nunu Borges Lymphocytes/100 WBC (Bld) 4.5 % Critically low 20.5-60.0 [facility] Comment on above: Performed By: #### C BC #### [facility] [address] [place] [address] Dr. Nunu Borges MANUAL DIFF REQ NO Normal [facility] Comment on above: Performed By: #### C BC #### [facility] [address] [place] [address] Dr. Nunu Borges MCH (RBC) [Entitic mass] 29.2 pg Normal 26.7-34.0 [facility] Comment on above: Performed By: #### C BC #### [facility] [address] [place] [address] Dr. Nunu Borges MCHC (RBC) [Mass/Vol] 33.0 g/dL Normal 29.9-35.2 [facility] Comment on above: Performed By: #### C BC #### [facility] [address] [place] [address] Dr. Nunu Borges MCV (RBC) [Entitic vol] 88.6 fL Normal 81.0-99.0 [facility] Comment on above: Performed By: #### C BC #### [facility] [address] [place] [address] Dr. Nunu Borges MONO # 1.4 103/ul Critically high 0.3-0.8 [facility] Comment on above: Performed By: #### C BC #### [facility] [address] [place] [address] Dr. Nunu Borges Monocytes/100 WBC (Bld) 7.6 % Normal 1.7-12.0 [facility] Comment on above: Performed By: #### C BC #### [facility] [address] [place] [address] Dr. Nunu Borges NEUT # 15.0 103/ul Critically high 1.4-6.5 [facility] Comment on above: Performed By: #### C BC #### [facility] [address] [place] [address] Dr. Nunu Borges Neutrophils/100 WBC (Bld) 85.0 % Critically high 43.0-75.0 [facility] Comment on above: Performed By: #### C BC #### [facility] [address] [place] [address] Dr. Nunu Borges Platelet mean volume (Bld) [Entitic vol] 11.5 fL Normal 9.5-13.5 [facility] Comment on above: Performed By: #### C BC #### [facility] [address] [place] [address] Dr. Nunu Borges PLT 277 103/ul Normal 150-450 [facility] Comment on above: Performed By: #### C BC #### [facility] [address] [place] [address] Dr. Nunu Borges RBC 4.14 106/ul Critically low 4.20-5.40 [facility] Comment on above: Performed By: #### C BC #### [facility] [address] [place] [address] Dr. Nunu Borges WBC 17.7 103/ul Critically high 4.0-11.0 [facility] Comment on above: Performed By: #### C BC #### [facility] [address] [place] [address] Dr. Nunu Borges CULTURE BLOODon 01-26-2022 Microscopic examination of blood, culture Culture Observations: NO GROWTH AT 5 DAYS. Normal [facility] Comment on above: Performed By: #### U AMIC #### [facility] [address] [place] [address] Dr. Nunu Borges Microscopic examination of blood, culture Culture Observations: NO GROWTH AT 5 DAYS. Normal [facility] Comment on above: Performed By: #### U AMIC #### [facility] [address] [place] [address] Dr. Nunu Borges CULTURE URINEon 01-26-2022 CULTURE URINE Culture Observations: LIGHT GROWTH OF MIXED GENITAL GABRIELLE. NO POTENTIAL PATHOGENS SEEN. Normal [facility] Comment on above: Performed By: #### U AMIC #### [facility] [address] [place] [address] Dr. Nunu Borges Covid-19 PCR (CVDTBH)on 01-08 SARS-CoV-2 (COVID-19) RNA GREG+probe Ql (Unsp spec) Detected Critically abnormal NOT DETECTED [facility] Comment on above: Result Comment: This test is not yet approved or cleared by the [place] FDA. When there are no FDA-approved or cleared tests available, and other criteria are met, FDA can make tests available under an emergency access mechanism called an Emergency Use Authorization (EUA). The EUA for this test is supported by the [place] of Health and Human Service's declaration that [...] used). Performed By: #### C VDTBH #### [facility] [address] [place] [address] Dr. Nunu Borges ER URINE PROFILEon 2 Bilirubin Ql (U) Negative Normal NEGATIVE [facility] Comment on above: Performed By: #### U AMIC #### [facility] [address] [address] [address] Nunu Borges Clarity (U) CLEAR Normal CLEAR [facility] Comment on above: Performed By: #### U AMIC #### [facility] [address] [address] [address] Nunu Borges Color (U) LT. YELLOW Normal YELLOW [facility] Comment on above: Performed By: #### U AMIC #### [facility] [address] [address] [address] Nunu MEZA A micrscopic examination will be performed if indicated. Normal [facility] Comment on above: Performed By: #### U AMIC #### [facility] [address] [place] [address] Dr. Nunu Borges Glucose Ql (U) Negative Normal NEGATIVE [facility] Comment on above: Performed By: #### U AMIC #### [facility] [address] [address] [address] Nunu Borges Hemoglobin Ql (U) Negative Normal NEGATIVE [facility] Comment on above: Performed By: #### U AMIC #### [facility] [address] [address] [address] Nunu Borges Ketones Ql (U) Negative Normal NEGATIVE [facility] Comment on above: Performed By: #### U AMIC #### [facility] [address] [address] [address] Nunu Borges LEUKOCYTES MODERATE Abnormal NEGATIVE [facility] Comment on above: Performed By: #### U AMIC #### [facility] [address] [place] [address] Dr. Nunu Borges Nitrite Ql (U) Negative Normal NEGATIVE [facility] Comment on above: Performed By: #### U AMIC #### [facility] [address] [place] [address] Dr. Nunu Borges pH (U) 6.0 [pH] Normal 5-9 [facility] Comment on above: Performed By: #### U AMIC #### [facility] [address] [address] [address] Nunu Borges SPEC GRAVITY 1.010 Normal 1.005-<=1.025 [facility] Comment on above: Performed By: #### U AMIC #### [facility] [address] [address] [address] Nunu Borges UA PROTEIN Negative Normal NEGATIVE/ TRACE [facility] Comment on above: Performed By: #### U AMIC #### [facility] [address] [address] [address] Nunu Borges UR MICRO IND INDICATED Normal [facility] Comment on above: Performed By: #### U AMIC #### [facility] [address] [address] [address] Nunu Borges Urobilinogen Qn (U) 0.2 {Myriam'U}/dL Normal 0.2 - 1. 0 [facility] Comment on above: Performed By: #### U AMIC #### [facility] [address] [address] [address] Nunu Borges POINT OF CARE GLUCOSEon 01-08 Glucose [Mass/Vol] 262 mg/dL Critically high 74-106 [facility] Comment on above: Performed By: #### U TIFFANIE, MG, RENAL #### [facility] [address] [address] [address] Nunu Borges PROF CHEM 8 (BAS METB)on Anion gap [Moles/Vol] 18.7 mmol/L Normal [facility] Comment on above: Performed By: #### U AMIC #### [facility] [address] [address] [address] Nunu Borges Calcium [Mass/Vol] 9.0 mg/dL Normal 8.5-10.1 [facility] Comment on above: Performed By: #### U AMIC #### [facility] [address] [address] [address] Nunu Borges Chloride [Moles/Vol] 95 mmol/L Critically low 98-107 [facility] Comment on above: Performed By: #### U AMIC #### [facility] [address] [address] [address] Nunu Borges CO2 [Moles/Vol] 20.6 mmol/L Critically low 21.0-32.0 [facility] Comment on above: Performed By: #### U AMIC #### [facility] [address] [address] [address] Nunu Borges Creatinine [Mass/Vol] 1.79 mg/dL Critically high 0.55-1.02 [facility] Comment on above: Performed By: #### U AMIC #### [facility] [address] [place] [address] Dr. Nunu Borges EGFR-AF GIBRALTARIAN 21 mL/min/1.73m2 Critically low >=60 [facility] Comment on above: Performed By: #### U AMIC #### [facility] [address] [place] [address] Dr. Nunu Borges EGFR-NON AF GIBRALTARIAN 18 mL/min/1.73m2 Critically low >=60 [facility] Comment on above: Performed By: #### U AMIC #### [facility] [address] [place] [address] Dr. Nunu Borges Glucose [Mass/Vol] 261 mg/dL Critically high 74-106 [facility] Comment on above: Performed By: #### U AMIC #### [facility] [address] [address] [address] Nunu Borges Potassium [Moles/Vol] 4.3 mmol/L Normal 3.5-5.1 [facility] Comment on above: Performed By: #### U AMIC #### [facility] [address] [address] [address] Nunu Borges Sodium [Moles/Vol] 130 mmol/L Critically low 136-145 [facility] Comment on above: Performed By: #### U AMIC #### [facility] [address] [address] [address] Nunu Borges Urea nitrogen [Mass/Vol] 54.0 mg/dL Critically high 7.0-18.0 [facility] Comment on above: Performed By: #### U AMIC #### [facility] [address] [place] [address] Dr. Nunu Borges Urea nitrogen/Creatinine [Mass ratio] 30.2 mg/mg Normal [facility] Comment on above: Performed By: #### U AMIC #### [facility] [address] [place] [address] Dr. Nunu Borges URINE MICROSCOPIC ONLYon BACTERIA TRACE Abnormal NONE SEEN [facility] Comment on above: Performed By: #### U AMIC #### [facility] [address] [place] [address] Dr. Nunu Borges Bacteria identified Cx Nom (U) INDICATED Normal [facility] Comment on above: Performed By: #### U AMIC #### [facility] [address] [place] [address] Dr. Nunu Borges CAST SEEN Abnormal NONE SEEN [facility] Comment on above: Performed By: #### U AMIC #### [facility] [address] [place] [address] Dr. Nunu Borges Crystals LM Nom (Urine sed) NONE SEEN Normal NONE SEEN [facility] Comment on above: Performed By: #### U AMIC #### [facility] [address] [place] [address] Dr. Nunu Borges Epithelial cells LM Ql (Urine sed) RARE Normal NONE SEEN /RARE [facility] Comment on above: Performed By: #### U AMIC #### [facility] [address] [place] [address] Dr. Nunu Borges HYALINE CAST RARE Normal [facility] Comment on above: Performed By: #### U AMIC #### [facility] [address] [place] [address] Dr. Nunu Borges MUCOUS NONE SEEN Normal NONE SEEN [facility] Comment on above: Performed By: #### U AMIC #### [facility] [address] [place] [address] Dr. Nunu Borges RBC 0-2 Normal 0-2 [facility] Comment on above: Performed By: #### U AMIC #### [facility] [address] [address] [address] Nunu Borges WBC 2-5 Abnormal NONE SEEN [facility] Comment on above: Performed By: #### U AMIC #### [facility] [address] [place] [address] Dr. Nunu Borges Covid-19 PCR (CVDTBH)on 01-07 SARS-CoV-2 (COVID-19) RNA GREG+probe Ql (Unsp spec) Detected Critically abnormal NOT DETECTED [facility] Comment on above: Result Comment: This test is not yet approved or cleared by the [place] FDA. When there are no FDA-approved or cleared tests available, and other criteria are met, FDA can make tests available under an emergency access mechanism called an Emergency Use Authorization (EUA). The EUA for this test is supported by the [employer] of Health and Human Service's declaration that [...] for this test is supported by the [employer] of Health and Human Service's (HHS's) declaration [...] used). Performed By: #### C VDTBH #### [facility] [address] [address] [address] Nunu Borges MG MAMM SCREEN 3D RODERICK CADon 01-09-2022 MG MAMM SCREEN 3D RODERICK CAD Patient: LONDON COURTNEY Exam Date: 01/09/2022 : 1955 Gender:F Ordering : DR MARIBEL ALVAREZ . Admission #: [id number] Family : Order #: [id number] CLICK HERE TO VIEW EXAM RADIOLOGY REPORT [...] Treatments None Family Cancers None LOCATION: [facility] BREAST COMPOSITION: Almost entirely fatty. FINDINGS: DIAGNOSTIC [...] Licea MD on 01/09/2022 at 12:50 Normal [facility] Cytologyon 07-20-2020 Cytology (NOTE) INTERPRETATION Cervical material, (ThinPrep vial, Imaging-assisted review): Specimen Adequacy: Satisfactory for evaluation. - Endocervical/transfo rmation zone component present. Descriptive Diagnosis: Negative for intraepithelial lesion or malignancy. Catering Manager: CARLOS Steward(ASCP) Electronically Signed Out chris/07/22/2020 Source: 1: Cervical material, (ThinPrep vial, Imaging-assisted review) Clinical History Postmenopausal Z12.4 Encounter for screening for malignant neoplasm of cervix GYNECOLOGIC CYTOLOGY REPORT Patient Name: LONDON COURTNEY [facility] Rec: [id number] Path Number: [id number] [facility] [employer] [facility] [address] [place] [id number] [facility] Comment on above: Performed By: #### P PPVP #### [facility] [address] [place] [address] Dining Service Supervisor: Jeremiah Acosta MD Main OR Intraoperative Recor handy 11-06-2017 Main OR Intraoperative Record IntraOp Document Type FTURO Summary Primary Physician: Juan Delarosa Jr., MD Finalized Date/Time: 11/06/17 12:28:35 Pt. Name: SREEDHAR COURTNEYWENDY Gupta/Sex: 1955 Female Med Rec #: [id number] Physician: Juan Delarosa Jr., MD Financial #: [id number] Pt. 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 Yes Allergies Reviewed Self/Patient With Body Position Frog Legged Prep Area PERINIUM Prep Agents Betadine Solution Skin. Condition Intact, [place], Warm, and Dry Additional None Specimens Collected [...] Simons RN, Lou Ann 11/06/17 12:28 Normal [facility] Main OR Preoperative Recordo n 11-06-2017 Main OR Preoperative Record Holding Area Document Type FTURO Summary Primary Physician: Juan Delarosa Jr., MD Finalized Date/Time: 11/06/17 12:28:41 Pt. Name: LONDON COURTNEY./Sex: 1955 Female Med Rec #: [id number] Physician: Juan Delarosa Jr., MD Financial #: [id number] Pt. Type: O Room/Bed: / Admit/Disch: 10/11/17 [...] of Pain: No Comment: Skin Integrity Intact, [place], Warm, & Dry Vitals - EU Blood Pressure 98/55 Pulse 76 bpm Respirations 18 br/min SPO2 RN Reviewed Yes Last Modified By: KIET Simons RN, Lou Ann 10/11/17 13:00:54 Finalized By: KIET Simons RN, Lou Ann Document Signatures Signed By: KIET Simons RN, Lou Ann 10/11/17 13:00 Karen Rutherford LPN 10/11/17 12:58 KIET Simons RN, Lou Ann 11/06/17 12:28 Normal [facility] Coding Summary.on 10-19-2017 Coding Summary. CODING DATE: 10/19/2017 [facility] STATUS: Home (Routine DC) PAYOR: Commercial Insurance [...] Saldaña Date Saved: 10/19/2017 08:52 am Normal [facility] Operative Reporton 8 Operative Report Patient: [...] urine. The Urethra was dilated to: 30 Danish w/ sounds. Devices Implanted: None. Removal: Cystoscope [...] negative. This completes her hematuria workup.. Normal [facility] Comment on above: Result Comment: Elec tronically Signed By: Washington Bennett MD, Juan Rios\.br\Date and Time Signed: 10/11/17 13:26 EDT Vital Signs Date Time Vital Sign Value Performing Clinician Facility 04-05-2023 10:00-0500 Body height 154.94 cm [facility] Other 9[facility] Other 04-05-2023 10:00-0500 Body mass index (BMI) [Ratio] 29.85 kg/m2 [facility] Other [facility] Other 04-05-2023 10:00-0500 Body temperature 97.2 [degF] [facility] Other [facility] Other 04-05-2023 10:00-0500 Body weight 71.67 kg [facility] Other 9[facility] Other 04-05-2023 10:00-0500 Diastolic blood pressure 60 mm[Hg] [facility] Other [facility] Other 04-05-2023 10:00-0500 Respiratory rate 18 /min [facility] Other 9[facility] Other 04-05-2023 10:00-0500 SaO2% (BldA) [Mass fraction] 98 % [facility] Other 9[facility] Other 04-05-2023 10:00-0500 Systolic blood pressure 124 mm[Hg] [facility] Other [facility] Other 09-07-2022 14:00-0400 Body height 154.94 cm [facility] Other [facility] Other 09-07-2022 14:00-0400 Body mass index (BMI) [Ratio] 29.47 kg/m2 [facility] Other [facility] Other 09-07-2022 14:00-0400 Body temperature 97.3 [degF] [facility] Other [facility] Other 09-07-2022 14:00-0400 Body weight 70.76 kg [facility] Other 9+ Other 09-07-2022 14:00-0400 Diastolic blood pressure 70 mm[Hg] [facility] Other [facility] Other 09-07-2022 14:00-0400 Respiratory rate 18 /min [facility] Other 9+ Other 09-07-2022 14:00-0400 SaO2% (BldA) [Mass fraction] 97 % [facility] Other 9[facility] Other 09-07-2022 14:00-0400 Systolic blood pressure 110 mm[Hg] [facility] Other 9[facility] Other 03-23-2022 11:20-0500 Body height 154.94 cm [facility] Other 9[facility] Other 03-23-2022 11:20-0500 Body mass index (BMI) [Ratio] 28.75 kg/m2 [facility] Other 9[facility] Other 03-23-2022 11:20-0500 Body temperature 96.2 [degF] [facility] Other 9[facility] Other 03-23-2022 11:20-0500 Body weight 69.04 kg [facility] Other 9+ Other 03-23-2022 11:20-0500 Diastolic blood pressure 80 mm[Hg] [facility] Other 9[facility] Other 03-23-2022 11:20-0500 Respiratory rate 18 /min [facility] Other 9[facility] Other 03-23-2022 11:20-0500 SaO2% (BldA) [Mass fraction] 96 % [facility] Other 9[facility] Other 03-23-2022 11:20-0500 Systolic blood pressure 122 mm[Hg] [facility] Other 9[facility] Other 09-01-2021 11:00-0400 Body height 154.94 cm [facility] Other 9[facility] Other 05-26-2022 11:00-0400 Body mass index (BMI) [Ratio] 31.29 kg/m2 [facility] Other 9[facility] Other 09-01-2021 11:00-0400 Body temperature 96.8 [degF] [facility] Other 9[facility] Other 09-01-2021 11:00-0400 Body weight 75.12 kg [facility] Other 9+ Other 09-01-2021 11:00-0400 Diastolic blood pressure 74 mm[Hg] [facility] Other 9+ Other 09-01-2021 11:00-0400 Respiratory rate 18 /min [facility] Other 9+ Other 09-01-2021 11:00-0400 SaO2% (BldA) [Mass fraction] 97 % [facility] Other 9+ Other 09-01-2021 11:00-0400 Systolic blood pressure 130 mm[Hg] [facility] Other 9+ Other 02-10-2021 10:20-0400 Body height 154.94 cm [facility] Other 9+ Other 02-10-2021 10:20-0400 Body mass index (BMI) [Ratio] 30.83 kg/m2 [facility] Other 9+ Other 02-10-2021 10:20-0400 Body temperature 96 [degF] [facility] Other 9+ Other 02-10-2021 10:20-0400 Body weight 74.03 kg [facility] Other 9+ Other 02-10-2021 10:20-0400 Diastolic blood pressure 74 mm[Hg] [facility] Other 9+ Other 02-10-2021 10:20-0400 Respiratory rate 18 /min [facility] Other 9+ Other 02-10-2021 10:20-0400 SaO2% (BldA) [Mass fraction] 94 % [facility] Other 9+ Other 02-10-2021 10:20-0400 Systolic blood pressure 110 mm[Hg] [facility] Other 9+ Other Encounters Encounter Date Encounter Type Care Provider Facility Start: 12-11-2023 End: 12-11-2023 ambulatory MARIBEL ALVAREZ Not Available Start: 10-18-2023 End: 10-18-2023 ambulatory SHAIKH JACQUI Not Available Start: 10-09-2023 End: 10-09-2023 ambulatory MARIBEL ALVAREZ [facility] Start: 10-01-2023 End: 10-01-2023 ambulatory SHARONA E RAMBASEK Not Available Start: 09-26-2023 End: 09-26-2023 ambulatory SHARONA E RAMBASEK Not Available Start: 09-25-2023 End: 09-25-2023 ambulatory MARIBEL NADERER Not Available Start: 09-24-2023 End: 09-24-2023 ambulatory SHARONA E RAMBASEK Not Available Start: 09-20-2023 End: 09-20-2023 ambulatory ARIANNA GUY Not Available Start: 09-19-2023 End: 09-19-2023 ambulatory BROCK FISHER JR [facility] Start: 09-19-2023 End: 09-19-2023 ambulatory BROCK Crandall MICHELLEANA ROME [facility] Start: 09-19-2023 Encounter for other preprocedural examination BROCK FISHER JR [facility] Start: 08-01-2023 End: 08-01-2023 ambulatory BROCK BENNETT Not Available Start: 07-23-2023 End: 07-23-2023 ambulatory SAGE Jose BETTE Not Available Start: 06-19-2023 End: 06-19-2023 ambulatory ANAIS Candido MELTON Not Available Start: 06-12-2023 End: 06-12-2023 ambulatory MARIBEL ALVAREZ Not Available Start: 04-05-2023 End: 04-05-2023 ambulatory [facility] Ada Other 9+ Other Start: 04-05-2023 Office outpatient vi sit 25 minutes G[facility]laine Ada [facility] Start: 09-07-2022 End: 09-07-2022 ambulatory G[facility]laine Ada Other 9+ Other Start: 09-07-2022 Office outpatient vi sit 15 minutes Ghislaine Ada [facility] Start: 08-31-2022 End: 09-01-[address] MARIBEL ALVAREZ Facility:[facility] Start: 08-18-2022 End: 08-19-[address] MARIBEL ALVAREZ Facility:[facility] Start: 07-26-2022 End: 07-26-[address] MARIBEL ALVAREZ Facility:[facility] Start: 07-18-2022 End: 07-18-2022 ambulatory [facility] Other 9+ Other Start: 07-18-2022 Telephone encounter Ghislaine Ada [facility] Start: 03-23-2022 End: 03-23-2022 ambulatory Ghislaine Ada Other 9+ Other Start: 03-23-2022 Office outpatient vi sit [...] 09-13-2021 End: 09-13-2021 ambulatory G[facility]laine Ada Other 9+ Other Start: 09-13-2021 Telephone encounter Ghislaine Ada [facility] Start: 09-01-2021 End: 09-01-2021 ambulatory Ghislaine Ada Other 9+ Other Start: 09-01-2021 Office outpatient vi sit 25 minutes Ghislaine Ada [facility] Start: 09-01-2021 Telephone encounter Ghislaine Ada [facility] Start: 08-22-2021 End: 08-22-2021 ambulatory Ghislaine Ada Other 9+ Other Start: 08-22-2021 Telephone encounter Ghislaine Ada [facility] Start: 08-15-2021 End: 08-15-2021 ambulatory Ghislaine Ada Other 9+ Other Start: 08-15-2021 Telephone encounter Ghislaine Ada [facility] Start: 05-24-2021 End: 05-24-2021 ambulatory Ghislaine Ada Other 9+ Other Start: 05-24-2021 Telephone encounter Ghislaine Ada [facility] Start: 02-21-2021 End: 02-21-2021 ambulatory Ghislaine Ada Other 9+ Other Start: 02-21-2021 Telephone encounter Ghislaine Ada [facility] Start: 02-11-2021 End: 02-11-2021 ambulatory Ghislaine Ada Other 9+ Other Start: 02-11-2021 Telephone encounter Ghislaine Ada [facility] Start: 02-10-2021 End: 02-10-2021 ambulatory Ghislaine Ada Other 9+ Other Start: 02-10-2021 Office outpatient vi sit 25 minutes Ghislaine Ada [facility] Start: 07-20-2020 End: 07-21-2020 Patient encounter procedure MARIBEL AVALOS [facility] Start: 10-11-2017 End: 10-12-2017 Patient encounter Bakari Berg Facility:[facility] Payers Date Payer Category Payer Private Health Insurance [id number] 2020 Unknown [id number] 2017 Private Health Insurance [id number] Self-pay 1955 Unknown [id number] 2.16.8 40.1.172114.3.579.2.173 1955 Unknown [id number] 2.16.84 0.1.598478.3.579.2.593 1955 Unknown [id number] 2.16.84 0.1.539110.3.579.2.593 1955 Unknown [id number] 2.16.84 0.1.915194.3.579.2.593 1955 Unknown [id number] 2.16.84 0.1.944227.3.579.2.593 1955 Unknown [id number] 2.16.84 0.1.115258.3.579.2.593 1955 Unknown [id number] 2.16.84 0.1.090228.3.579.2.593 1953 Unknown [id number] 2.16.84 0.1.382632.3.579.2.593 1953 Unknown [id number] 2.16.84 0.1.373867.3.579.2.593 1953 Unknown [id number] 2.16.84 0.1.429178.3.579.2.593 1955 Unknown [id number] 2.16.84 0.1.272926.3.579.2.593 1953 Unknown [id number] 2.16.84 0.1.707841.3.579.2.593 1953 Unknown [id number] 2.16.8 40.1.057124.3.579.2.128 1953 Unknown [id number] 2.16.8 40.1.138890.3.579.2.128 1955 Unknown [id number] 2.16.8 40.1.281639.3.579.2.128 1955 Unknown [id number] 2.16.8 40.1.033208.3.579.2.128 1953 Unknown [id number] 2.16.8 40.1.424904.3.579.2.128 1953 Unknown [id number] 2.16.8 40.1.279836.3.579.2.128 1953 Unknown [id number] 2.16.84 0.1.497797.3.579.2.1259 1953 Unknown [id number] 2.16.84 0.1.098487.3.579.2.1259 1953 Unknown [id number] 2.16.84 0.1.931948.3.579.2.1258 1953 Unknown [id number] 2.16.84 0.1.927522.3.579.2.1258 1953 Unknown [id number] 2.16.84 0.1.659167.3.579.2.1258 1953 Unknown [id number] 2.16.84 0.1.515642.3.579.2.1258 1953 Unknown [id number] 2.16.84 0.1.104385.3.579.2.1258 1953 Unknown [id number] 2.16.84 0.1.597501.3.579.2.1258 1953 Unknown [id number] 2.16.84 0.1.091549.3.579.2.1258 1953 Unknown [id number] 2.16.84 0.1.752420.3.579.2.1258 1953 Unknown [id number] 2.16.84 0.1.228834.3.579.2.1258 1955 Unknown [id number] 2.16.84 0.1.343911.3.579.2.1258 1955 Unknown [id number] 2.16.84 0.1.340321.3.579.2.1259 Medicare [id number] 2. 16.840.1.148558.19 Unknown [id number] 2.16.84 0.1.920901.3.579.2.593 Social History Date Type Detail Facility Unknown if ever smoked 9+ Other Sex Assigned At Sex Assigned At Bir th 9+ Other Clinical Notes 12-27-2016 to 09-22-2023 Note [...] Kelly Mckeon MD on 09/22/2023 8:01 AM [facility] 04-05-2023 Evaluation note Encounter Date Diagnosis [...] monitor LFTs and lipid profile with PCP 9+ Other 06-01-2023 Evaluation note* Encounter Date Diagnosis [...] monitor LFTs and lipid profile with PCP 9+ Other 05-12-2023 NotePROCEDURE: XR KNEE LT 3V HISTORY: Pain of joint of knee ; acute left knee pain COMPARISON: None. FINDINGS: BONES:No fracture, acute abnormality, or significant arthropathy. SOFT TISSUES:No visible soft tissue swelling. EFFUSION:None visible. OTHER: Negative. IMPRESSION: 1. No appreciable acute abnormality or significant degenerative joint disease. Electronically authenticated by: PEGGY CORTEZ Date: 2022-08-18 12:27[facility]12-15-2022 Evaluation note* Encounter Date Diagnosis Assessment [...] within the goal. Continue oral vitamin D 9+ Other 07-12-2022 NotePROCEDURE: XR PELVIS W_OBL MIN [...] Electronically authenticated by: CONNIE LICEA Date: 2021-10-18 19:13[facility]05-26-2022 Evaluation note* Encounter Date Diagnosis Assessment [...] within the goal. Continue oral vitamin D 9+ Other 05-26-2022 Evaluation note* Encounter Date Diagnosis Assessment Notes Treatment Notes Treatment Clinical Notes August, Type 2 diabetes mellitus with diabetic chronic kidney disease (ICD-10 - E11.22) 9+ Other 11-04-2021 Evaluation note* Encounter Date Diagnosis [...] the goal and Vit D is normal. 9+ Other 09-20-2017 History general Narrative - Reported* Type Description Date Medical History diabetes mellitus Medical History hypertension Medical History hyperlipidemia Surgical History COLONOSCOPY NORMAL P ER PATIENT AT [facility] 12-27-2016 Hospitalization History [facility] 9+ Other 09-20-2017 History general Narrative - Reported* Type Description Date Medical History diabetes mellitus Medical History hypertension Medical History hyperlipidemia Surgical History COLONOSCOPY NORMAL P ER PATIENT AT [facility] 12-27-2016 Hospitalization History Dehydration 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 08/09/2021 9+ Other 09-20-2017 History general Narrative - Reported* Type Description Date Medical History diabetes mellitus Medical History hypertension Medical History hyperlipidemia Surgical History COLONOSCOPY NORMAL P ER PATIENT AT [facility] 12-27-2016 Hospitalization History 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, UTI, SEPSIS 08/09/2021 9+ Other 09-20-2017 History general Narrative - Reported* Type Description Date Medical History diabetes mellitus Medical History hypertension Medical History hyperlipidemia Medical History OSTEOPOROSIS Surgical History COLONOSCOPY NORMAL P ER PATIENT AT [facility] 12-27-2016 Hospitalization History 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, UTI, SEPSIS 08/09/2021 9+ Other Evaluation noteNo InformationNoSinosun Technology Other Evaluation noteNoSinosun Technology Other History general Narrative - ReportedNoSinosun Technology Other Summary Purpose Family History No Family [...] content) DATE CREATED AUTHOR 12/05/2017 Maverick Gamez [facility] DATE CREATED AUTHOR AUTHOR'S ORGANIZ ATION 07/23/2020 [facility] DATE CREATED AUTHOR AUTHOR'S ORGANIZ ATION 09/16/2022 [facility] DATE CREATED AUTHOR AUTHOR'S ORGANIZ ATION 10/10/2023 [facility] DATE CREATED AUTHOR AUTHOR'S ORGANIZ ATION 12/12/2023 [facility] EPIC REASON FOR VISIT [...] BE BASED ON THE PRIMARY CLINICAL RECORDS. [employer] provides no warranty or guarantee of the accuracy or completeness of information in this document.
--- OUTSIDE RECORDS SUMMARY | 2024-01-11 09:23 | XMS_ITS | CCD ---
Author Organization [facility] Care Team Providers Care Filter Assembler Name Role Phone Rice, Bakari W Unavailable Unavailable Rice, Bakari W Unavailable Unavailable Rice, Bakari W Unavailable Unavailable NADERER, [phone] UNKNOWN Unavailable Unavailable NADERER, MARIBEL AVALOS Primary [...] FISHER JR Attending Unavailabl e STEPANIC JR, RBOCK Crandall Referring Unavailabl e NADERER, MARIBEL Primary [...] Allergies] Propensity to adverse reactions (disorder) [facility] Repository Medications Current Medications Medication [...] Active docusate sodium 50 mg / sennosides, retirement 8.6 mg oral tablet (2 sources) take [...] 2 Chronic Other aftercare (1 source) Other correction (current) drug therapy; Translations: [OTH RADIOLOGY ADMINISTRATOR CURRENT DRUG THERAPY] Onset: 3 Episodic 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; Translations: [RADIOLOGY ADMINISTRATOR CURRENT USE OF ASPIRIN] Onset: 3 Episodic Other aftercare (1 source) [facility] (current) use of oral hypoglycemic drugs; Translations: [SKILLED NURSING USE ORAL HYPOGLYCEMIC DX] Onset: 3 Episodic [...] Anion gap [Moles/Vol] 7 mmol/L Normal 5-15 [facility] Comment on above: Performed By: #### C BCA, BMP, HA1C #### [facility] ([id number]) [address], [address] [place] [address] Calcium [Mass/Vol] 9.7 mg/dL Normal 8.5-10.5 [facility] Comment on above: Performed By: #### C BCA, BMP, HA1C #### [facility] ([id number]) [address], [address] [place] [address] Chloride [Moles/Vol] 99 mmol/L Normal 98-109 [facility] Comment on above: Performed By: #### C SHANA, BMP, HA1C #### [facility] ([id number]) [address], [address] [place] [address] CO2 [Moles/Vol] 30 mmol/L Normal 22-32 [facility] Comment on above: Performed By: #### C SHANA, BMP, HA1C #### [facility] ([id number]) [address], [address] [place] [address] Creatinine [Mass/Vol] 1.09 mg/dL High 0.40-1.00 [facility] Comment on above: Result Comment: METH OD TRACEABLE TO IDMS STANDARD Performed By: #### C SHANA, BMP, HA1C #### [facility] ([id number]) [address], [address] [place] [address] GFR/1.73 sq M.predicted among non-blacks MDRD (S/P/Bld) [Vol rate/Area] 55 mL/min/{1.73_m2} Low >59 [facility] Comment on above: Result Comment: Reported eGFR is based on the CKD-EPI 2020 equation that does not use a race coefficient. Performed By: #### C BCA, BMP, HA1C #### [facility] ([id number]) [address], [address] [place] [address] Glucose [Mass/Vol] 109 mg/dL High 65-99 [facility] Comment on above: Performed By: #### C SELAM SALDANA, HA1C #### [facility] ([id number]) [address], [facility] [address] [place] [address] Potassium [Moles/Vol] 4.1 mmol/L Normal 3.5-5.0 [facility] Comment on above: Performed By: #### C SELAM SALDANA, HA1C #### [facility] ([id number]) [address], [facility] [address] [place] [address] Sodium [Moles/Vol] 136 mmol/L Normal 134-146 [facility] Comment on above: Performed By: #### C SELAM SALDANA, HA1C #### [facility] ([id number]) [address] [address] [place] [address] Urea nitrogen [Mass/Vol] 26 mg/dL Normal 5-27 [facility] Comment on above: Performed By: #### C SELAM SALDANA, HA1C #### [facility] ([id number]) [address] [address] [place] [address] CBC AND AUTO DIFFon 09-18- 24 ABSOLUTE BASOPHIL 0.1 X10E9/L Normal 0.0-0.2 [facility] Comment on above: Performed By: #### C SELAM SALDANA, HA1C #### [facility] ([id number]) [address], [facility] [address] [place] [address] ABSOLUTE NEUTROPHIL 3.1 X10E9/L Normal 1.5-6.6 [facility] Comment on above: Performed By: #### C SELAM SALDANA, HA1C #### [facility] ([id number]) [address] [address] [place] [address] Basophils/100 WBC (Bld) 1.1 % Normal [facility] Comment on above: Performed By: #### C SELAM SALDANA, HA1C #### [facility] ([id number]) [address], [address] [place] [address] Eosinophils (Bld) [#/Vol] 0.2 10*3/uL Normal 0.0-0.4 [facility] Comment on above: Performed By: #### C SELAM SALDANA, HA1C #### [facility] ([id number]) [address], [address] [place] [address] Eosinophils/100 WBC (Bld) 3.6 % Normal [facility] Comment on above: Performed By: #### C SELAM SALDANA, HA1C #### [facility] ([id number]) [address], [facility] [address] [place] [address] Erythrocyte distribution width (RBC) [Ratio] 13.3 % Normal 11.5-15.0 [facility] Comment on above: Performed By: #### SELAM Crandall BCA, HA1C #### [facility] ([id number]) [address], [address] [place] [address] Hematocrit (Bld) [Volume fraction] 36.8 % Normal 35-47 [facility] Comment on above: Performed By: #### SELAM Crandall BCA, HA1C #### [facility] ([id number]) [address] [address] [place] [address] Hemoglobin (Bld) [Mass/Vol] 12.0 g/dL Normal 11.7-15.5 [facility] Comment on above: Performed By: #### C SELAM SALDANA, HA1C #### [facility] ([id number]) [address], [address] [place] [address] Lymphocytes (Bld) [#/Vol] 1.5 10*3/uL Normal 1.0-3.5 [facility] Comment on above: Performed By: #### SELAM Crandall BCA, HA1C #### [facility] ([id number]) [address] [place] [address] Lymphocytes/100 WBC (Bld) 26.2 % Normal [facility] Comment on above: Performed By: #### SELAM Crandall BCA, HA1C #### [facility] ([id number]) [address], [address] [place] [address] MCH (RBC) [Entitic mass] 30.0 pg Normal 27-34 [facility] Comment on above: Performed By: #### C SELAM SALDANA, HA1C #### [facility] ([id number]) [address], [address] [place] [address] MCHC (RBC) [Mass/Vol] 32.6 g/dL Normal 32-36 [facility] Comment on above: Performed By: #### SELAM Crandall BCA, HA1C #### [facility] ([id number]) [address], [address] [place] [address] MCV (RBC) [Entitic vol] 92 fL Normal 80-100 [facility] Comment on above: Performed By: #### SELAM Crandall BCA, HA1C #### [facility] ([id number]) [address], [address] [place] [address] Monocytes (Bld) [#/Vol] 0.7 10*3/uL Normal 0-0.9 [facility] Comment on above: Performed By: #### SELAM Crandall BCA, HA1C #### [facility] ([id number]) [address], [address] [place] [address] Monocytes/100 WBC (Bld) 13.1 % Normal [facility] Comment on above: Performed By: #### SELAM Crandall BCA, HA1C #### [facility] ([id number]) [address], [address] [place] [address] Neutrophils/100 WBC (Bld) 56.0 % Normal [facility] Comment on above: Performed By: #### SELAM Crandall BCA, HA1C #### [facility] ([id number]) [address], [address] [place] [address] Platelet mean volume (Bld) [Entitic vol] 9.6 fL Normal 7-12 [facility] Comment on above: Performed By: #### SELAM Crandall BCA, HA1C #### [facility] ([id number]) [address], [facility] [address] [place] [address] Platelets (Bld) [#/Vol] 274 10*3/uL Normal 150-450 [facility] Comment on above: Performed By: #### SELAM Crandall BCA, HA1C #### [facility] ([id number]) [address], [address] [place] [address] RBC COUNT 4.00 X10E12/L Normal 3.80-5.20 [facility] Comment on above: Performed By: #### SELAM Crandall BCA, HA1C #### [facility] ([id number]) [address], [facility] [address] [place] [address] WBC (Bld) [#/Vol] 5.6 10*3/uL Normal 4.0-11.0 [facility] Comment on above: Performed By: #### SELAM Crandall BCA, HA1C #### [facility] ([id number]) [address], [address] [place] [address] HGB A1C (GLYCO-HGB)on 2023 Glucose [Mass/Vol] 131 mg/dL Normal [facility] Comment on above: Performed By: #### SELAM Crandall BCA, HA1C #### [facility] ([id number]) [address], [facility] [address] [place] [address] HbA1c (Bld) [Mass fraction] 6.2 % High 4.4-5.6 [facility] Comment on above: Result Comment: NOTE ADA Guidelines Result HgbA1c Normal : less than 5.7 % Prediabetes : 5.7 % to 6.4 % Diabetes : > 6.4 % Use with caution in patients with abnormal hemoglobin variants as the half-life of red blood cells and in vivo glycation rates are affected. Performed By: #### C BCA, BMP, HA1C #### [facility] ([id number]) [address], [facility] [address] [place] [address] URINALYSISon 09-19-2023 Bilirubin Ql (U) Negative Normal NEG [facility] Comment on above: Performed By: #### U A #### [facility] ([id number]) [address] [address] BLOOD/HGB Negative Normal NEG [facility] Comment on above: Performed By: #### U A #### [facility] ([id number]) [address] [address] [place] [address] Color (U) YELLOW Normal YELLOW [facility] Comment on above: Performed By: #### U A #### [facility] ([id number]) [address] [address] Glucose Ql (U) Negative Normal NEG [facility] Comment on above: Performed By: #### U A #### [facility] ([id number]) [address] [address] [place] [address] Hyaline casts LM Ql (Urine sed) 1 /lpf Normal 0-2 [facility] Comment on above: Performed By: #### U A #### [facility] ([id number]) [address] [facility] [address] [place] [address] Ketones Ql (U) Negative Normal NEG [facility] Comment on above: Performed By: #### U A #### [facility] ([id number]) [address] [address] [place] [address] Leukocyte esterase Test strip Ql (U) Large Abnormal NEG [facility] Comment on above: Performed By: #### U A #### [facility] ([id number]) [facility], [address] [place] [address] MUCOUS PRESENT Abnormal NONE [facility] Comment on above: Performed By: #### U A #### [facility] ([id number]) [address] [place] [address], [address] [place] [address] Nitrite Ql (U) Negative Normal NEG [facility] Comment on above: Performed By: #### U A #### [facility] ([id number]) [address] [place] [address], [address] [place] [address] pH (U) 8.0 [pH] Normal 5.0-8.5 [facility] Comment on above: Performed By: #### U A #### [facility] ([id number]) [address] [place] [address], [address] [place] [address] Protein Ql (U) Trace Abnormal NEG [facility] Comment on above: Performed By: #### U A #### [facility] ([id number]) [address] [place] [address], [address] [place] [address] R.B.CELLS 4 /hpf Normal 0-5 [facility] Comment on above: Performed By: #### U A #### [facility] ([id number]) [address] [place] [address], [address] [place] [address] Specific gravity (U) [Rel density] 1.015 Normal 1.003-1.035 [facility] Comment on above: Performed By: #### U A #### [facility] ([id number]) [address] [place] [address] [address] [place] [address] SQUAMOUS EPITHELIUM 2 /hpf Normal 0-5 [facility] Comment on above: Performed By: #### U A #### [facility] ([id number]) [address] [place] [address] TRANSITIONAL EPITH <1 High 0 [facility] Comment on above: Performed By: #### U A #### [facility] ([id number]) [address] [address] [place] [address] TURBIDITY HAZY Abnormal CLEAR [facility] Comment on above: Performed By: #### U A #### [facility] ([id number]) [address] [place] [address] Urobilinogen (U) [Mass/Vol] mg/dL Normal <1.1 [facility] Comment on above: Performed By: #### U A #### [facility] ([id number]) [address] [address] W.B.CELLS 60 /hpf High 0-5 [facility] Comment on above: Performed By: #### U A #### [facility] ([id number]) [address] [address] URINE CULTUREon 09-19-2023 Bacteria identified Cx Nom (U) CULTURE RESULTS MULTIPLE SPECIES PRESENT. PROBABLE COLLECTION CONTAMINATION. SUGGEST REPEAT SPECIMEN. Normal [facility] Comment on above: Performed By: #### 6 30-4 #### [facility] ([id number]) [address] [address] XR CHEST 2 VWSon 09-19-2023 XR CHEST 2 VWS XR CHEST 2 VWS XR CHEST 2 VWS INDICATION: Preop examination; Hypertension, unspecified type; Type 2 diabetes mellitus without complication, without long-term current use of insulin ([facility]); Urinary frequency; Former smoker; Osteoarthritis of left hip, unspecified osteoarthritis type. FINDINGS: Cardiac silhouette is normal in size. Trachea midline. No focal pulmonary consolidation. No pleural effusion. No pneumothorax. IMPRESSION: 1. Unremarkable chest radiographs. Finalized by Sincere Charles MD on 09/19/2023 11:47 PM Normal [facility] PTH INTACTon 09-01-2022 PTH, Intact 26 pg/mL Normal 15-65 [facility] Comment on above: Performed By: #### P THINT #### [facility] [address] [address] [address] Nunu Borges CBC AUTO DIFFon 08-31-2022 BASO # 0.1 103/ul Normal 0.0-0.1 [facility] Comment on above: Performed By: #### U TIFFANIE, MG, RENAL #### [facility] [address] [address] [address] Nunu Borges Basophils/100 WBC (Bld) 1.2 % Normal 0.2-2.0 [facility] Comment on above: Performed By: #### U TIFFANIE, MG, RENAL #### [facility] [address] [place] [address] Dr. Nunu Borges EO # 0.1 103/ul Normal 0.0-0.7 [facility] Comment on above: Performed By: #### U TIFFANIE, MG, RENAL #### [facility] [address] [address] [address] Nunu Borges Eosinophils/100 WBC (Bld) 2.2 % Normal 0.9-7.0 [facility] Comment on above: Performed By: #### U TIFFANIE, MG, RENAL #### [facility] [address] [address] [address] Nunu Borges Erythrocyte distribution width (RBC) [Ratio] 12.7 % Normal 11.0-15.0 [facility] Comment on above: Performed By: #### U TIFFANIE, MG, RENAL #### [facility] [address] [address] [address] Nunu Borges Hematocrit (Bld) [Volume fraction] 38.0 % Normal 36.0-48.0 [facility] Comment on above: Performed By: #### U TIFFANIE, MG, RENAL #### [facility] [address] [address] [address] Nunu Borges Hemoglobin (Bld) [Mass/Vol] 12.5 g/dL Normal 12.0-16.0 [facility] Comment on above: Performed By: #### U TIFFANIE, MG, RENAL #### [facility] [address] [place] [address] Dr. Nunu Borges IG # 0.02 10e3/ul Normal 0.00-0.03 [facility] Comment on above: Performed By: #### U TIFFANIE, MG, RENAL #### [facility] [address] [place] [address] Dr. Nunu Borges IG % 0.3 % Normal 0.0-0.5 [facility] Comment on above: Performed By: #### U TIFFANIE, MG, RENAL #### [facility] [address] [place] [address] Dr. Nunu Borges LYMPH # 1.8 103/ul Normal 1.2-3.8 [facility] Comment on above: Performed By: #### U TIFFANIE, MG, RENAL #### [facility] [address] [place] [address] Dr. Nunu Borges Lymphocytes/100 WBC (Bld) 30.7 % Normal 20.5-60.0 [facility] Comment on above: Performed By: #### U TIFFANIE, MG, RENAL #### [facility] [address] [place] [address] Dr. Nunu Borges MANUAL DIFF REQ NO Normal [facility] Comment on above: Performed By: #### U TIFFANIE, MG, RENAL #### [facility] [address] [place] [address] Dr. Nunu Borges MCH (RBC) [Entitic mass] 29.8 pg Normal 26.7-34.0 [facility] Comment on above: Performed By: #### U TIFFANIE, MG, RENAL #### [facility] [address] [place] [address] Dr. Nunu Borges MCHC (RBC) [Mass/Vol] 32.9 g/dL Normal 29.9-35.2 [facility] Comment on above: Performed By: #### U TIFFANIE, MG, RENAL #### [facility] [address] [place] [address] Dr. Nunu Borges MCV (RBC) [Entitic vol] 90.5 fL Normal 81.0-99.0 [facility] Comment on above: Performed By: #### U TIFFANIE, MG, RENAL #### [facility] [address] [place] [address] Dr. Nunu Borges MONO # 0.7 103/ul Normal 0.3-0.8 [facility] Comment on above: Performed By: #### U TIFFANIE, MG, RENAL #### [facility] [address] [place] [address] Dr. Nunu Borges Monocytes/100 WBC (Bld) 12.4 % Critically high 1.7-12.0 [facility] Comment on above: Performed By: #### U TIFFANIE, MG, RENAL #### [facility] [address] [place] [address] Dr. Nunu Borges NEUT # 3.1 103/ul Normal 1.4-6.5 [facility] Comment on above: Performed By: #### U TIFFANIE, MG, RENAL #### [facility] [address] [place] [address] Dr. Nunu Borges Neutrophils/100 WBC (Bld) 53.2 % Normal 43.0-75.0 [facility] Comment on above: Performed By: #### U TIFFANIE, MG, RENAL #### [facility] [address] [place] [address] Dr. Nunu Borges Platelet mean volume (Bld) [Entitic vol] 11.3 fL Normal 9.5-13.5 [facility] Comment on above: Performed By: #### U TIFFANIE, MG, RENAL #### [facility] [address] [place] [address] Dr. Nunu Borges PLT 284 103/ul Normal 150-450 [facility] Comment on above: Performed By: #### U TIFFAINE, MG, RENAL #### [facility] [address] [place] [address] Dr. Nunu Borges RBC 4.20 106/ul Normal 4.20-5.40 [facility] Comment on above: Performed By: #### U TIFFANIE, MG, RENAL #### [facility] [address] [address] [address] Nunu Borges WBC 5.9 103/ul Normal 4.0-11.0 [facility] Comment on above: Performed By: #### U TIFFANIE, MG, RENAL #### [facility] [address] [address] [address] Nunu Borges FERRITINon 08-31-2022 Ferritin [Mass/Vol] 66.0 ng/mL Normal 8.0-252.0 [facility] Comment on above: Performed By: #### U TIFFANIE, MG, RENAL #### [facility] [address] [address] [address] Nunu Borges GLYCOHEMOGLOBIN A1Con 2022 ADA RECOMMENDATION SEE BELOW Normal [facility] Comment on above: Result Comment: ADA RECOMMENDED LIMIT 4.0 - 6.0 ADA THERAPEUTIC TARGET < 7.0 ACTION SUGGESTED > 7.0 Performed By: #### U TIFFANIE, MG, RENAL #### [facility] [address] [address] [address] Nunu Borges Glucose [Mass/Vol] 134 mg/dL Normal [facility] Comment on above: Performed By: #### U TIFFANIE, MG, RENAL #### [facility] [address] [address] [address] Nunu Borges HbA1c (Bld) [Mass fraction] 6.3 % Critically high 4.5-6.2 [facility] Comment on above: Performed By: #### U TIFFANIE, MG, RENAL #### [facility] [address] [address] [address] Nunu Borges IRON AND TIBCon 08-31-2022 % SATURATION 25.9 % Normal [facility] Comment on above: Performed By: #### U TIFFANIE, MG, RENAL #### [facility] [address] [address] [address] Nunu Borges Iron [Mass/Vol] 90.0 ug/dL Normal 50.0-170.0 [facility] Comment on above: Performed By: #### U TIFFANIE, MG, RENAL #### [facility] [address] [address] [address] Nunu Borges TIBC DIRECT 348.0 ug/dL Normal 250.0-450.0 [facility] Comment on above: Performed By: #### U TIFFANIE, MG, RENAL #### [facility] [address] [place] [address] Dr. Nunu Borges LIPID PROFILEon 08-31-2022 CHOL-HDL RATIO NORM SEE BELOW Normal [facility] Comment on above: Result Comment: 3.3 - 4.4 LOW RISK 4.4 - 7.1 AVERAGE RISK 7.1 - 11.0 MODERATE RISK >11.0 HIGH RISK Performed By: #### U TIFFANIE, MG, RENAL #### [facility] [address] [place] [address] Dr. Nunu Borges Cholesterol [Mass/Vol] 152 mg/dL Normal <=200 [facility] Comment on above: Performed By: #### U TIFFANIE, MG, RENAL #### [facility] [address] [place] [address] Dr. Nunu Borges Cholesterol in HDL [Mass/Vol] 77 mg/dL Critically high 40-60 [facility] Comment on above: Performed By: #### U TIFFANIE, MG, RENAL #### [facility] [address] [address] [address] Nunu Borges Cholesterol in LDL [Mass/Vol] 63.2 mg/dL Normal [facility] Comment on above: Performed By: #### U TIFFANIE, MG, RENAL #### [facility] [address] [place] [address] Dr. Nunu Borges Cholesterol.total/Ch olesterol in HDL [Mass ratio] 2.0 {ratio} Normal [facility] Comment on above: Performed By: #### U TIFFANIE, MG, RENAL #### [facility] [address] [place] [address] Dr. Nunu Borges HDL NORMAL > or = 60 mg/dl - LOW CARDIOVASCULAR RISK <40 mg/dl - HIGH CARDIOVASCULAR RISK Normal [facility] Comment on above: Performed By: #### U TIFFANIE, MG, RENAL #### [facility] [address] [place] [address] Dr. Nunu Borges LDL CALC NORMAL SEE BELOW Normal [facility] Comment on above: Result Comment: <100 mg/dl OPTIMAL 100 - 129 mg/dl NEAR OR ABOVE OPTIMAL 130 - 159 mg/dl BORDERLINE HIGH 160 - 189 mg/dl HIGH >190 mg/dl VERY HIGH Performed By: #### U TIFFANIE, MG, RENAL #### [facility] [address] [address] [address] Nunu Borges Triglyceride [Mass/Vol] 59 mg/dL Normal <=150 [facility] Comment on above: Performed By: #### U TIFFANIE, MG, RENAL #### [facility] [address] [address] [address] Nunu Borges VLDL CALC 11.8 mg/dL Normal [facility] Comment on above: Performed By: #### U TIFFANIE, MG, RENAL #### [facility] [address] [address] [address] Nunu Borges LIVER PROFILEon 08-31-2022 Albumin/Globulin [Mass ratio] 1.1 {ratio} Normal [facility] Comment on above: Performed By: #### U TIFFANIE, MG, RENAL #### [facility] [address] [address] [address] Nunu Borges ALP [Catalytic activity/Vol] 129 U/L Critically high 46-116 [facility] Comment on above: Performed By: #### U TIFFANIE, MG, RENAL #### [facility] [address] [address] [address] Nunu Borges ALT [Catalytic activity/Vol] 32 U/L Normal 14-59 [facility] Comment on above: Performed By: #### U TIFFANIE, MG, RENAL #### [facility] [address] [address] [address] Nunu Borges AST [Catalytic activity/Vol] 20 U/L Normal 15-37 [facility] Comment on above: Performed By: #### U TIFFANIE, MG, RENAL #### [facility] [address] [address] [address] Nunu Borges BILI, CONJUGATED 0.2 mg/dL Normal 0.0-0.2 [facility] Comment on above: Performed By: #### U TIFFANIE, MG, RENAL #### [facility] [address] [place] [address] Dr. Nunu Borges Bilirubin [Mass/Vol] 0.8 mg/dL Normal 0.2-1.0 [facility] Comment on above: Performed By: #### U TIFFANIE, MG, RENAL #### [facility] [address] [place] [address] Dr. Nunu Borges Globulin (S) [Mass/Vol] 3.6 g/dL Normal [facility] Comment on above: Performed By: #### U TIFFANIE, MG, RENAL #### [facility] [address] [place] [address] Dr. Nunu Borges Protein [Mass/Vol] 7.5 g/dL Normal 6.4-8.2 [facility] Comment on above: Performed By: #### U TIFFANIE, MG, RENAL #### [facility] [address] [place] [address] Dr. Nunu Borges MAGNESIUMon 08-31-2022 Magnesium [Mass/Vol] 1.8 mg/dL Normal 1.8-2.4 [facility] Comment on above: Performed By: #### U TIFFANIE, MG, RENAL #### [facility] [address] [place] [address] Dr. Nunu Borges MICROALBUMIN, RAND URon 08-08 mALB <1.3 Normal <=30.0 [facility] Comment on above: Performed By: #### U TIFFANIE, MG, RENAL #### [facility] [address] [place] [address] Dr. Nunu Borges PROF CHEM 8 (BAS METB)on Anion gap [Moles/Vol] 14.3 mmol/L Normal [facility] Comment on above: Performed By: #### U TIFFANIE, MG, RENAL #### [facility] [address] [place] [address] Dr. Nunu Borges CO2 [Moles/Vol] 27.7 mmol/L Normal 21.0-32.0 [facility] Comment on above: Performed By: #### U TIFFANIE, MG, RENAL #### [facility] [address] [address] [address] Nunu Borges Glucose [Mass/Vol] 119 mg/dL Critically high 74-106 [facility] Comment on above: Performed By: #### U TIFFANIE, MG, RENAL #### [facility] [address] [address] [address] Nunu Borges Urea nitrogen/Creatinine [Mass ratio] 22.7 mg/mg Normal [facility] Comment on above: Performed By: #### U TIFFANIE, MG, RENAL #### [facility] [address] [address] [address] Nunu Borges RENAL FUNCTION PANELon 08-31 Albumin [Mass/Vol] 3.9 g/dL Normal 3.4-5.0 [facility] Comment on above: Performed By: #### U TIFFANIE, MG, RENAL #### [facility] [address] [address] [address] Nunu Borges Calcium [Mass/Vol] 9.7 mg/dL Normal 8.5-10.1 [facility] Comment on above: Performed By: #### U TIFFANIE, MG, RENAL #### [facility] [address] [address] [address] Nunu Borges Chloride [Moles/Vol] 99 mmol/L Normal 98-107 [facility] Comment on above: Performed By: #### U TIFFANIE, MG, RENAL #### [facility] [address] [address] [address] Nunu Borges CO2 [Moles/Vol] 28.0 mmol/L Normal 21.0-32.0 [facility] Comment on above: Performed By: #### U TIFFANIE, MG, RENAL #### [facility] [address] [address] [address] Nunu Borges Creatinine [Mass/Vol] 1.32 mg/dL Critically high 0.55-1.02 [facility] Comment on above: Performed By: #### U ITFFANIE, MG, RENAL #### [facility] [address] [address] [address] Nunu Borges EGFR-AF SERBIAN 49 mL/min/1.73m2 Critically low >=60 [facility] Comment on above: Performed By: #### U TIFFANIE, MG, RENAL #### [facility] [address] [address] [address] Nunu Borges EGFR-NON AF SERBIAN 40 mL/min/1.73m2 Critically low >=60 [facility] Comment on above: Performed By: #### U TIFFANIE, MG, RENAL #### [facility] [address] [address] [address] Nunu Borges Glucose [Mass/Vol] 118 mg/dL Critically high 74-[address] [facility] Comment on above: Performed By: #### U TIFFANIE, MG, RENAL #### [facility] [address] [address] [address] Nunu Borges Phosphate [Mass/Vol] 3.6 mg/dL Normal 2.6-4.7 [facility] Comment on above: Performed By: #### U TIFFANIE, MG, RENAL #### [facility] [address] [place] [address] Dr. Nunu Borges Potassium [Moles/Vol] 4.0 mmol/L Normal 3.5-5.1 [facility] Comment on above: Performed By: #### U TIFFANIE, MG, RENAL #### [facility] [address] [place] [address] Dr. Nunu Borges Sodium [Moles/Vol] 137 mmol/L Normal 136-145 [facility] Comment on above: Performed By: #### U TIFFANIE, MG, RENAL #### [facility] [address] [place] [address] Dr. Nunu Borges Urea nitrogen [Mass/Vol] 30.0 mg/dL Critically high 7.0-18.0 [facility] Comment on above: Performed By: #### U TIFFANIE, MG, RENAL #### [facility] [address] [place] [address] Dr. Nunu Borges UA RANDOM W/MICROSCOPICon BACTERIA NONE SEEN Normal NONE SEEN [facility] Comment on above: Performed By: #### U AMIC #### [facility] [address] [address] [address] Nunu Borges Bilirubin Ql (U) Negative Normal NEGATIVE [facility] Comment on above: Performed By: #### U AMIC #### [facility] [address] [address] [address] Nunu Borges CAST NONE SEEN Normal NONE SEEN [facility] Comment on above: Performed By: #### U AMIC #### [facility] [address] [address] [address] Nunu Borges Clarity (U) CLEAR Normal CLEAR [facility] Comment on above: Performed By: #### U AMIC #### [facility] [address] [address] [address] Nunu Borgse Color (U) LT. YELLOW Normal YELLOW [facility] Comment on above: Performed By: #### U AMIC #### [facility] [address] [address] [address] Nunu Borges Crystals LM Nom (Urine sed) NONE SEEN Normal NONE SEEN [facility] Comment on above: Performed By: #### U AMIC #### [facility] [address] [address] [address] Nunu Borges Epithelial cells LM Ql (Urine sed) FEW Abnormal NONE SEEN /RARE [facility] Comment on above: Performed By: #### U AMIC #### [facility] [address] [place] [address] Dr. Nunu Borges Glucose Ql (U) Negative Normal NEGATIVE [facility] Comment on above: Performed By: #### U AMIC #### [facility] [address] [place] [address] Dr. Nunu Borges Hemoglobin Ql (U) Negative Normal NEGATIVE [facility] Comment on above: Performed By: #### U AMIC #### [facility] [address] [address] [address] Nunu Borges Ketones Ql (U) Negative Normal NEGATIVE [facility] Comment on above: Performed By: #### U AMIC #### [facility] [address] [place] [address] Dr. Nunu Borges LEUKOCYTES TRACE Abnormal NEGATIVE [facility] Comment on above: Performed By: #### U AMIC #### [facility] [address] [address] [address] Nunu Borges MUCOUS NONE SEEN Normal NONE SEEN [facility] Comment on above: Performed By: #### U AMIC #### [facility] [address] [address] [address] Nunu Borges Nitrite Ql (U) Negative Normal NEGATIVE [facility] Comment on above: Performed By: #### U AMIC #### [facility] [address] [address] [address] Nunu Borges pH (U) 6.0 [pH] Normal 5-9 [facility] Comment on above: Performed By: #### U AMIC #### [facility] [address] [place] [address] Dr. Nunu Borges RBC NONE SEEN Abnormal 0-2 [facility] Comment on above: Performed By: #### U AMIC #### [facility] [address] [place] [address] Dr. Nunu Borges SPEC GRAVITY 1.015 Normal 1.005-<=1.025 [facility] Comment on above: Performed By: #### U AMIC #### [facility] [address] [place] [address] Dr. Nunu Borges UA PROTEIN Negative Normal NEGATIVE/ TRACE [facility] Comment on above: Performed By: #### U AMIC #### [facility] [address] [address] [address] Nunu Borges Urobilinogen Qn (U) 0.2 {Myriam'U}/dL Normal 0.2 - 1. 0 [facility] Comment on above: Performed By: #### U AMIC #### [facility] [address] [place] [address] Dr. Nunu Borges WBC 2-5 Abnormal NONE SEEN [facility] Comment on above: Performed By: #### U AMIC #### [facility] [address] [place] [address] Dr. Nunu Borges URIC ACID SERUMon 08-31-2022 Urate [Mass/Vol] 6.3 mg/dL Critically high 2.6-6.0 [facility] Comment on above: Performed By: #### U TIFFANIE, MG, RENAL #### [facility] [address] [place] [address] Dr. uNnu Borges URINE T PROTEIN CREAT RATIOo n 08-31-2022 Protein (U) [Mass/Vol] 13.3 mg/dL Critically high <=12.0 [facility] Comment on above: Performed By: #### U TIFFANIE, MG, RENAL #### [facility] [address] [place] [address] Dr. Nunu Borges UR PROT CREAT RAT 0.11 [facility] Comment on above: Performed By: #### U TIFFANIE, MG, RENAL #### [facility] [address] [place] [address] Dr. Nunu Borges URINE CREAT 121.05 mg/dL Normal 20.00-300.00 [facility] Comment on above: Performed By: #### U TIFFANIE, MG, RENAL #### [facility] [address] [place] [address] Dr. Nunu Borges VITAMIN D 25 OHon 08-31-2022 VIT D 25-OH 79.7 ng/mL Normal [facility] Comment on above: Performed By: #### U TIFFANIE, MG, RENAL #### [facility] [address] [place] [address] Dr. Nunu Borges VIT D RANGES SEE BELOW Normal [facility] Comment on above: Result Comment: <20 ng/mL Vit D deficient 20 - <30 ng/mL Vit D insufficient 30 - 100 ng/mL Vit D sufficient >100 ng/mL Potential Toxicity Performed By: #### U TIFFANIE, MG, RENAL #### [facility] [address] [place] [address] Dr. Nunu Borges POINT OF CARE GLUCOSEon 04- Glucose [Mass/Vol] 132 mg/dL Critically high 74-[address] [facility] Comment on above: Performed By: #### U AMIC #### [facility] [address] [place] [address] Dr. Nunu Borges PTH INTACTon 02-15-2022 PTH, Intact 36 pg/mL Normal 15-65 [facility] Comment on above: Performed By: #### U TIFFANIE, MG, RENAL #### [facility] [address] [place] [address] Dr. Nunu Borges UA RANDOM W/MICROSCOPICon BACTERIA TRACE Abnormal NONE SEEN [facility] Comment on above: Performed By: #### U AMIC #### [facility] [address] [place] [address] Dr. Nunu Borges Bilirubin Ql (U) Negative Normal NEGATIVE [facility] Comment on above: Performed By: #### U AMIC #### [facility] [address] [place] [address] Dr. Nunu Borges CAST NONE SEEN Normal NONE SEEN [facility] Comment on above: Performed By: #### U AMIC #### [facility] [address] [place] [address] Dr. Nunu Borges Clarity (U) CLEAR Normal CLEAR [facility] Comment on above: Performed By: #### U AMIC #### [facility] [address] [place] [address] Dr. Nunu Borges Color (U) LT. YELLOW Normal YELLOW [facility] Comment on above: Performed By: #### U AMIC #### [facility] [address] [place] [address] Dr. Nunu Borges Crystals LM Nom (Urine sed) NONE SEEN Normal NONE SEEN [facility] Comment on above: Performed By: #### U AMIC #### [facility] [address] [place] [address] Dr. Nunu Borges Epithelial cells LM Ql (Urine sed) FEW Abnormal NONE SEEN /RARE [facility] Comment on above: Performed By: #### U AMIC #### [facility] [address] [place] [address] Dr. Nunu Borges Glucose Ql (U) Negative Normal NEGATIVE [facility] Comment on above: Performed By: #### U AMIC #### [facility] [address] [place] [address] Dr. Nunu Borges Hemoglobin Ql (U) Negative Normal NEGATIVE [facility] Comment on above: Performed By: #### U AMIC #### [facility] [address] [address] [address] Nunu Borges Ketones Ql (U) Negative Normal NEGATIVE [facility] Comment on above: Performed By: #### U AMIC #### [facility] [address] [address] [address] Nunu Borges LEUKOCYTES SMALL Abnormal NEGATIVE [facility] Comment on above: Performed By: #### U AMIC #### [facility] [address] [address] [address] Nunu Borges MUCOUS NONE SEEN Normal NONE SEEN [facility] Comment on above: Performed By: #### U AMIC #### [facility] [address] [place] [address] Dr. Nunu Borges Nitrite Ql (U) Negative Normal NEGATIVE [facility] Comment on above: Performed By: #### U AMIC #### [facility] [address] [place] [address] Dr. Nunu Borges pH (U) 7.0 [pH] Normal 5-9 [facility] Comment on above: Performed By: #### U AMIC #### [facility] [address] [place] [address] Dr. Nunu Borges RBC NONE SEEN Abnormal 0-2 [facility] Comment on above: Performed By: #### U AMIC #### [facility] [address] [address] [address] Nunu Borges SPEC GRAVITY 1.010 Normal 1.005-<=1.025 [facility] Comment on above: Performed By: #### U AMIC #### [facility] [address] [place] [address] Dr. Nunu Borges UA PROTEIN Negative Normal NEGATIVE/ TRACE [facility] Comment on above: Performed By: #### U AMIC #### [facility] [address] [place] [address] Dr. Nunu Borges Urobilinogen Qn (U) 0.2 {Myriam'U}/dL Normal 0.2 - 1. 0 [facility] Comment on above: Performed By: #### U AMIC #### [facility] [address] [address] [address] Nunu Borges WBC 5-10 Abnormal NONE SEEN [facility] Comment on above: Performed By: #### U AMIC #### [facility] [address] [address] [address] Nunu Borges FERRITINon 02-13-2022 Ferritin [Mass/Vol] 72.0 ng/mL Normal 8.0-252.0 [facility] Comment on above: Performed By: #### U TIFFANIE, MG, RENAL #### [facility] [address] [place] [address] Dr. Nunu Borges GLYCOHEMOGLOBIN A1Con 2021 ADA RECOMMENDATION SEE BELOW Normal [facility] Comment on above: Result Comment: ADA RECOMMENDED LIMIT 4.0 - 6.0 ADA THERAPEUTIC TARGET < 7.0 ACTION SUGGESTED > 7.0 Performed By: #### A 1C #### [facility] [address] [place] [address] Dr. Nunu Borges Glucose [Mass/Vol] 143 mg/dL Normal [facility] Comment on above: Performed By: #### A 1C #### [facility] [address] [place] [address] Dr. Nunu Borges HbA1c (Bld) [Mass fraction] 6.6 % Critically high 4.5-6.2 [facility] Comment on above: Performed By: #### A 1C #### [facility] [address] [place] [address] Dr. Nunu Borges HEMOGRAM AND PLATELon 2021 Hematocrit (Bld) [Volume fraction] 36.1 % Normal 36.0-48.0 [facility] Comment on above: Performed By: #### U TIFFANIE, MG, RENAL #### [facility] [address] [place] [address] Dr. Nunu Borges Hemoglobin (Bld) [Mass/Vol] 11.5 g/dL Critically low 12.0-16.0 [facility] Comment on above: Performed By: #### U TIFFANIE, MG, RENAL #### [facility] [address] [address] [address] Nunu Borges MCH (RBC) [Entitic mass] 29.1 pg Normal 26.7-34.0 [facility] Comment on above: Performed By: #### U TIFFANIE, MG, RENAL #### [facility] [address] [place] [address] Dr. Nunu Borges MCHC (RBC) [Mass/Vol] 31.9 g/dL Normal 29.9-35.2 [facility] Comment on above: Performed By: #### U TIFFANIE, MG, RENAL #### [facility] [address] [place] [address] Dr. Nunu Borges MCV (RBC) [Entitic vol] 91.4 fL Normal 81.0-99.0 [facility] Comment on above: Performed By: #### U TIFFNAIE, MG, RENAL #### [facility] [address] [place] [address] Dr. Nunu Borges PLT 348 103/ul Normal 150-450 [facility] Comment on above: Performed By: #### U TIFFANIE, MG, RENAL #### [facility] [address] [place] [address] Dr. Nunu Borges RBC 3.95 106/ul Critically low 4.20-5.40 [facility] Comment on above: Performed By: #### U TIFFANIE, MG, RENAL #### [facility] [address] [place] [address] Dr. Nunu Borges WBC 4.4 103/ul Normal 4.0-11.0 [facility] Comment on above: Performed By: #### U TIFFANIE, MG, RENAL #### [facility] [address] [place] [address] Dr. Nunu Borges IRON AND TIBCon 02-13-2022 % SATURATION 17.1 % Normal [facility] Comment on above: Performed By: #### U TIFFANIE, MG, RENAL #### [facility] [address] [place] [address] Dr. Nunu Borges Iron [Mass/Vol] 56.0 ug/dL Normal 50.0-170.0 [facility] Comment on above: Performed By: #### U TIFFANIE, MG, RENAL #### [facility] [address] [address] [address] Nunu Borges TIBC DIRECT 327.0 ug/dL Normal 250.0-450.0 [facility] Comment on above: Performed By: #### U TIFFANIE, MG, RENAL #### [facility] [address] [address] [address] Nunu Borges MAGNESIUMon 02-13-2022 Magnesium [Mass/Vol] 1.8 mg/dL Normal 1.8-2.4 [facility] Comment on above: Performed By: #### U TIFFANIE, MG, RENAL #### [facility] [address] [address] [address] Nunu Borges RENAL FUNCTION PANELon 02-13 Albumin [Mass/Vol] 3.7 g/dL Normal 3.4-5.0 [facility] Comment on above: Performed By: #### U TIFFANIE, MG, RENAL #### [facility] [address] [address] [address] Nunu Borges Calcium [Mass/Vol] 9.4 mg/dL Normal 8.5-10.1 [facility] Comment on above: Performed By: #### U TIFFANIE, MG, RENAL #### [facility] [address] [address] [address] Nunu Borges Chloride [Moles/Vol] 100 mmol/L Normal 98-107 [facility] Comment on above: Performed By: #### U TIFFANIE, MG, RENAL #### [facility] [address] [address] [address] Nunu Borges CO2 [Moles/Vol] 30.0 mmol/L Normal 21.0-32.0 [facility] Comment on above: Performed By: #### U TIFFANIE, MG, RENAL #### [facility] [address] [address] [address] Nunu Borges Creatinine [Mass/Vol] 1.31 mg/dL Critically high 0.55-1.02 [facility] Comment on above: Performed By: #### U TIFFANIE, MG, RENAL #### [facility] [address] [place] [address] Dr. Nunu Borges EGFR-AF SERBIAN 49 mL/min/1.73m2 Critically low >=60 [facility] Comment on above: Performed By: #### U TIFFANIE, MG, RENAL #### [facility] [address] [place] [address] Dr. Nunu Borges EGFR-NON AF SERBIAN 40 mL/min/1.73m2 Critically low >=60 [facility] Comment on above: Performed By: #### U TIFFANIE, MG, RENAL #### [facility] [address] [place] [address] Dr. Nunu Borges Glucose [Mass/Vol] 98 mg/dL Normal 74-106 [facility] Comment on above: Performed By: #### U TIFFANIE, MG, RENAL #### [facility] [address] [place] [address] Dr. Nunu Borges Phosphate [Mass/Vol] 3.0 mg/dL Normal 2.6-4.7 [facility] Comment on above: Performed By: #### U TIFFANIE, MG, RENAL #### [facility] [address] [place] [address] Dr. Nunu Borges Potassium [Moles/Vol] 4.4 mmol/L Normal 3.5-5.1 [facility] Comment on above: Performed By: #### U TIFFANIE, MG, RENAL #### [facility] [address] [place] [address] Dr. Nunu Borges Sodium [Moles/Vol] 133 mmol/L Critically low 136-145 [facility] Comment on above: Performed By: #### U TIFFANIE, MG, RENAL #### [facility] [address] [place] [address] Dr. Nunu Borges Urea nitrogen [Mass/Vol] 23.0 mg/dL Critically high 7.0-18.0 [facility] Comment on above: Performed By: #### U TIFFANIE, MG, RENAL #### [facility] [address] [place] [address] Dr. Nunu Borges URIC ACID SERUMon 02-13-2022 Urate [Mass/Vol] 5.9 mg/dL Normal 2.6-6.0 [facility] Comment on above: Performed By: #### U TIFFANIE, MG, RENAL #### [facility] [address] [place] [address] Dr. Nunu Borges VITAMIN D 25 OHon 02-13-2022 VIT D 25-OH 70.3 ng/mL Normal [facility] Comment on above: Performed By: #### U TIFFANIE, MG, RENAL #### [facility] [address] [place] [address] Dr. Nunu Borges VIT D RANGES SEE BELOW Normal [facility] Comment on above: Result Comment: <20 ng/mL Vit D deficient 20 - <30 ng/mL Vit D insufficient 30 - 100 ng/mL Vit D sufficient >100 ng/mL Potential Toxicity Performed By: #### U TIFFANIE, MG, RENAL #### [facility] [facility] [address] [place] [address] Dr. Nunu Borges CBC AUTO DIFFon 01-27-2022 BASO # 0.0 103/ul Normal 0.0-0.1 [facility] Comment on above: Performed By: #### U TIFFANIE, MG, RENAL #### [facility] [address] [place] [address] Dr. Nunu Borges Basophils/100 WBC (Bld) 0.2 % Normal 0.2-2.0 [facility] Comment on above: Performed By: #### U TIFFANIE, MG, RENAL #### [facility] [address] [place] [address] Dr. Nunu Borges EO # 0.1 103/ul Normal 0.0-0.7 [facility] Comment on above: Performed By: #### U TIFFANIE, MG, RENAL #### [facility] [address] [place] [address] Dr. Nunu Borges Eosinophils/100 WBC (Bld) 0.9 % Normal 0.9-7.0 [facility] Comment on above: Performed By: #### U TIFFANIE, MG, RENAL #### [facility] [address] [address] [address] Nunu Borges Erythrocyte distribution width (RBC) [Ratio] 12.5 % Normal 11.0-15.0 [facility] Comment on above: Performed By: #### U TIFFANIE, MG, RENAL #### [facility] [address] [address] [address] Nunu Borges Hematocrit (Bld) [Volume fraction] 32.5 % Critically low 36.0-48.0 [facility] Comment on above: Performed By: #### U TIFFANIE, MG, RENAL #### [facility] [address] [address] [address] Nunu Borges Hemoglobin (Bld) [Mass/Vol] 10.9 g/dL Critically low 12.0-16.0 [facility] Comment on above: Performed By: #### U TIFFANIE, MG, RENAL #### [facility] [address] [address] [address] Nunu Borges IG # 0.14 10e3/ul Critically high 0.00-0.03 [facility] Comment on above: Performed By: #### U TIFFANIE, MG, RENAL #### [facility] [address] [address] [address] Nunu Borges IG % 1.5 % Critically high 0.0-0.5 [facility] Comment on above: Performed By: #### U TIFFANIE, MG, RENAL #### [facility] [address] [address] [address] Nunu Borges LYMPH # 1.5 103/ul Normal 1.2-3.8 [facility] Comment on above: Performed By: #### U TIFFANIE, MG, RENAL #### [facility] [address] [address] [address] Nunu Borges Lymphocytes/100 WBC (Bld) 15.5 % Critically low 20.5-60.0 [facility] Comment on above: Performed By: #### U TIFFANIE, MG, RENAL #### [facility] [address] [address] [address] Nunu Borges MANUAL DIFF REQ NO Normal [facility] Comment on above: Performed By: #### U TIFFANIE, MG, RENAL #### [facility] [address] [address] [address] Nunu Borges MCH (RBC) [Entitic mass] 29.6 pg Normal 26.7-34.0 [facility] Comment on above: Performed By: #### U TIFFANIE, MG, RENAL #### [facility] [address] [place] [address] Dr. Nunu Borges MCHC (RBC) [Mass/Vol] 33.5 g/dL Normal 29.9-35.2 [facility] Comment on above: Performed By: #### U TIFFANIE, MG, RENAL #### [facility] [address] [place] [address] Dr. Nunu Borges MCV (RBC) [Entitic vol] 88.3 fL Normal 81.0-99.0 [facility] Comment on above: Performed By: #### U TIFFANIE, MG, RENAL #### [facility] [address] [place] [address] Dr. Nunu Borges MONO # 1.2 103/ul Critically high 0.3-0.8 [facility] Comment on above: Performed By: #### U TIFFANIE, MG, RENAL #### [facility] [address] [place] [address] Dr. Nunu Borges Monocytes/100 WBC (Bld) 12.9 % Critically high 1.7-12.0 [facility] Comment on above: Performed By: #### U TIFFANIE, MG, RENAL #### [facility] [address] [place] [address] Dr. Nunu Borges NEUT # 6.5 103/ul Normal 1.4-6.5 [facility] Comment on above: Performed By: #### U TIFFANIE, MG, RENAL #### [facility] [address] [place] [address] Dr. Nunu Borges Neutrophils/100 WBC (Bld) 69.0 % Normal 43.0-75.0 [facility] Comment on above: Performed By: #### U TIFFANIE, MG, RENAL #### [facility] [address] [place], [place] [id number] Dr. Nunu Borges Platelet mean volume (Bld) [Entitic vol] 11.8 fL Normal 9.5-13.5 [facility] Comment on above: Performed By: #### U TIFFANIE, MG, RENAL #### [facility] [address] [address] [address] Nunu Borges PLT 239 103/ul Normal 150-450 [facility] Comment on above: Performed By: #### U TIFFANIE, MG, RENAL #### [facility] [address] [address] [address] Nunu Borges RBC 3.68 106/ul Critically low 4.20-5.40 [facility] Comment on above: Performed By: #### U TIFFANIE, MG, RENAL #### [facility] [address] [place] [address] Dr. Nunu Borges WBC 9.4 103/ul Normal 4.0-11.0 [facility] Comment on above: Performed By: #### U TIFFANIE, MG, RENAL #### [facility] [address] [place] [address] Dr. Nunu Borges POINT OF CARE GLUCOSEon 01-08 Glucose [Mass/Vol] 226 mg/dL Critically high 74-106 [facility] Comment on above: Performed By: #### U TIFFANIE, MG, RENAL #### [facility] [address] [place] [address] Dr. Nunu Borges PROF CHEM 8 (BAS METB)on Anion gap [Moles/Vol] 10.5 mmol/L Normal [facility] Comment on above: Performed By: #### U TIFFANIE, MG, RENAL #### [facility] [address] [address] [address] Nunu Borges Calcium [Mass/Vol] 8.2 mg/dL Critically low 8.5-10.1 [facility] Comment on above: Performed By: #### U TIFFANIE, MG, RENAL #### [facility] [address] [address] [address] Nunu Borges Chloride [Moles/Vol] 103 mmol/L Normal 98-107 [facility] Comment on above: Performed By: #### U TIFFANIE, MG, RENAL #### [facility] [address] [address] [address] Nunu Borges CO2 [Moles/Vol] 26.0 mmol/L Normal 21.0-32.0 [facility] Comment on above: Performed By: #### U TIFFANIE, MG, RENAL #### [facility] [address] [address] [address] Nunu Borges Creatinine [Mass/Vol] 1.04 mg/dL Critically high 0.55-1.02 [facility] Comment on above: Performed By: #### U TIFFANIE, MG, RENAL #### [facility] [address] [place] [address] Dr. Nunu Borges EGFR-AF SERBIAN >60 Normal >=60 [facility] Comment on above: Performed By: #### U TIFFANIE, MG, RENAL #### [facility] [address] [place] [address] Dr. Nunu Borges EGFR-NON AF SERBIAN 53 mL/min/1.73m2 Critically low >=60 [facility] Comment on above: Performed By: #### U TIFFANIE, MG, RENAL #### [facility] [address] [place] [address] Dr. Nunu Borges Glucose [Mass/Vol] 91 mg/dL Normal 74-106 [facility] Comment on above: Performed By: #### U TIFFANIE, MG, RENAL #### [facility] [address] [place] [address] Dr. Nunu Borges Potassium [Moles/Vol] 3.5 mmol/L Normal 3.5-5.1 [facility] Comment on above: Performed By: #### U TIFFANIE, MG, RENAL #### [facility] [address] [place] [address] Dr. Nunu Borges Sodium [Moles/Vol] 136 mmol/L Normal 136-145 [facility] Comment on above: Performed By: #### U TIFFANIE, MG, RENAL #### [facility] [address] [place] [address] Dr. Nunu Borges Urea nitrogen [Mass/Vol] 32.0 mg/dL Critically high 7.0-18.0 [facility] Comment on above: Performed By: #### U TIFFANIE, MG, RENAL #### [facility] [address] [place] [address] Dr. Nunu Borges Urea nitrogen/Creatinine [Mass ratio] 30.8 mg/mg Normal [facility] Comment on above: Performed By: #### U TIFFANIE, MG, RENAL #### [facility] [address] [place] [address] Dr. Nunu Borges CBC AUTO DIFFon 01-26-2022 BASO # 0.0 103/ul Normal 0.0-0.1 [facility] Comment on above: Performed By: #### C BC #### [facility] [address] [place] [address] Dr. Nunu Borges Basophils/100 WBC (Bld) 0.1 % Critically low 0.2-2.0 [facility] Comment on above: Performed By: #### C BC #### [facility] [address] [place] [address] Dr. Nunu Borges EO # 0.1 103/ul Normal 0.0-0.7 [facility] Comment on above: Performed By: #### C BC #### [facility] [address] [place] [address] Dr. Nunu Borges Eosinophils/100 WBC (Bld) 0.4 % Critically low 0.9-7.0 [facility] Comment on above: Performed By: #### C BC #### [facility] [address] [place] [address] Dr. Nunu Borges Erythrocyte distribution width (RBC) [Ratio] 12.2 % Normal 11.0-15.0 [facility] Comment on above: Performed By: #### C BC #### [facility] [address] [place] [address] Dr. Nunu Borges Hematocrit (Bld) [Volume fraction] 36.7 % Normal 36.0-48.0 [facility] Comment on above: Performed By: #### C BC #### [facility] [address] [address] [address] Nunu Borges Hemoglobin (Bld) [Mass/Vol] 12.1 g/dL Normal 12.0-16.0 [facility] Comment on above: Performed By: #### C BC #### [facility] [address] [place] [address] Dr. Nunu Borges IG # 0.42 10e3/ul Critically high 0.00-0.03 [facility] Comment on above: Performed By: #### C BC #### [facility] [address] [place] [address] Dr. Nunu Borges IG % 2.4 % Critically high 0.0-0.5 [facility] Comment on above: Performed By: #### C BC #### [facility] [address] [place] [address] Dr. Nunu Borges LYMPH # 0.8 103/ul Critically low 1.2-3.8 [facility] Comment on above: Performed By: #### C BC #### [facility] [address] [place] [address] Dr. Nunu Borges Lymphocytes/100 WBC (Bld) 4.5 % Critically low 20.5-60.0 [facility] Comment on above: Performed By: #### C BC #### [facility] [address] [place] [address] Dr. Nunu Borges MANUAL DIFF REQ NO Normal [facility] Comment on above: Performed By: #### C BC #### [facility] [address] [place] [address] Dr. Nunu Borges MCH (RBC) [Entitic mass] 29.2 pg Normal 26.7-34.0 [facility] Comment on above: Performed By: #### C BC #### [facility] [address] [place] [address] Dr. Nunu Borges MCHC (RBC) [Mass/Vol] 33.0 g/dL Normal 29.9-35.2 [facility] Comment on above: Performed By: #### C BC #### [facility] [address] [place] [address] Dr. Nunu Borges MCV (RBC) [Entitic vol] 88.6 fL Normal 81.0-99.0 [facility] Comment on above: Performed By: #### C BC #### [facility] [address] [place] [address] Dr. Nunu Borges MONO # 1.4 103/ul Critically high 0.3-0.8 [facility] Comment on above: Performed By: #### C BC #### [facility] [address] [place] [address] Dr. Nunu Borges Monocytes/100 WBC (Bld) 7.6 % Normal 1.7-12.0 [facility] Comment on above: Performed By: #### C BC #### [facility] [address] [place] [address] Dr. Nunu Borges NEUT # 15.0 103/ul Critically high 1.4-6.5 [facility] Comment on above: Performed By: #### C BC #### [facility] [address] [place] [address] Dr. Nunu Borges Neutrophils/100 WBC (Bld) 85.0 % Critically high 43.0-75.0 [facility] Comment on above: Performed By: #### C BC #### [facility] [address] [place] [address] Dr. Nunu Borges Platelet mean volume (Bld) [Entitic vol] 11.5 fL Normal 9.5-13.5 [facility] Comment on above: Performed By: #### C BC #### [facility] [address] [place] [address] Dr. Nunu Borges PLT 277 103/ul Normal 150-450 [facility] Comment on above: Performed By: #### C BC #### [facility] [address] [place] [address] Dr. Nunu Borges RBC 4.14 106/ul Critically low 4.20-5.40 [facility] Comment on above: Performed By: #### C BC #### [facility] [address] [place] [address] Dr. Nunu Borges WBC 17.7 103/ul Critically high 4.0-11.0 [facility] Comment on above: Performed By: #### C BC #### [facility] [address] [place] [address] Dr. Nunu Borges CULTURE BLOODon 01-26-2022 Microscopic examination of blood, culture Culture Observations: NO GROWTH AT 5 DAYS. Normal [facility] Comment on above: Performed By: #### U AMIC #### [facility] [address] [place] [address] Dr. Nunu Borges Microscopic examination of blood, culture Culture Observations: NO GROWTH AT 5 DAYS. Normal [facility] Comment on above: Performed By: #### U AMIC #### [facility] [address] [place] [address] Dr. Nunu Borges CULTURE URINEon 01-26-2022 CULTURE URINE Culture Observations: LIGHT GROWTH OF MIXED GENITAL GABRIELLE. NO POTENTIAL PATHOGENS SEEN. Normal [facility] Comment on above: Performed By: #### U AMIC #### [facility] [address] [place] [address] Dr. Nunu Borges Covid-19 PCR (CVDTBH)on 01-08 SARS-CoV-2 (COVID-19) RNA GREG+probe Ql (Unsp spec) Detected Critically abnormal NOT DETECTED [facility] Comment on above: Result Comment: This test is not yet approved or cleared by the [place] FDA. When there are no FDA-approved or cleared tests available, and other criteria are met, FDA can make tests available under an emergency access mechanism called an Emergency Use Authorization (EUA). The EUA for this test is supported by the [place] of Health and Human Service's declaration that [...] used). Performed By: #### C VDTBH #### [facility] [address] [place] [address] Dr. Nunu Borges ER URINE PROFILEon 2 Bilirubin Ql (U) Negative Normal NEGATIVE [facility] Comment on above: Performed By: #### U AMIC #### [facility] [address] [address] [address] Nunu Borges Clarity (U) CLEAR Normal CLEAR [facility] Comment on above: Performed By: #### U AMIC #### [facility] [address] [address] [address] Nunu Borges Color (U) LT. YELLOW Normal YELLOW [facility] Comment on above: Performed By: #### U AMIC #### [facility] [address] [address] [address] Nunu MEZA A micrscopic examination will be performed if indicated. Normal [facility] Comment on above: Performed By: #### U AMIC #### [facility] [address] [place] [address] Dr. Nunu Borges Glucose Ql (U) Negative Normal NEGATIVE [facility] Comment on above: Performed By: #### U AMIC #### [facility] [address] [address] [address] Nunu Borges Hemoglobin Ql (U) Negative Normal NEGATIVE [facility] Comment on above: Performed By: #### U AMIC #### [facility] [address] [address] [address] Nnuu Borges Ketones Ql (U) Negative Normal NEGATIVE [facility] Comment on above: Performed By: #### U AMIC #### [facility] [address] [address] [address] Nunu Borges LEUKOCYTES MODERATE Abnormal NEGATIVE [facility] Comment on above: Performed By: #### U AMIC #### [facility] [address] [place] [address] Dr. Nunu Borges Nitrite Ql (U) Negative Normal NEGATIVE [facility] Comment on above: Performed By: #### U AMIC #### [facility] [address] [place] [address] Dr. Nunu Borges pH (U) 6.0 [pH] Normal 5-9 [facility] Comment on above: Performed By: #### U AMIC #### [facility] [address] [address] [address] Nunu Borges SPEC GRAVITY 1.010 Normal 1.005-<=1.025 [facility] Comment on above: Performed By: #### U AMIC #### [facility] [address] [address] [address] Nunu Borges UA PROTEIN Negative Normal NEGATIVE/ TRACE [facility] Comment on above: Performed By: #### U AMIC #### [facility] [address] [address] [address] Nunu Borges UR MICRO IND INDICATED Normal [facility] Comment on above: Performed By: #### U AMIC #### [facility] [address] [address] [address] Nunu Borges Urobilinogen Qn (U) 0.2 {Myriam'U}/dL Normal 0.2 - 1. 0 [facility] Comment on above: Performed By: #### U AMIC #### [facility] [address] [address] [address] Nunu Borges POINT OF CARE GLUCOSEon 01-08 Glucose [Mass/Vol] 262 mg/dL Critically high 74-106 [facility] Comment on above: Performed By: #### U TIFFANIE, MG, RENAL #### [facility] [address] [address] [address] Nunu Borges PROF CHEM 8 (BAS METB)on Anion gap [Moles/Vol] 18.7 mmol/L Normal [facility] Comment on above: Performed By: #### U AMIC #### [facility] [address] [address] [address] Nunu Borges Calcium [Mass/Vol] 9.0 mg/dL Normal 8.5-10.1 [facility] Comment on above: Performed By: #### U AMIC #### [facility] [address] [address] [address] Nunu Borges Chloride [Moles/Vol] 95 mmol/L Critically low 98-107 [facility] Comment on above: Performed By: #### U AMIC #### [facility] [address] [address] [address] Nunu Borges CO2 [Moles/Vol] 20.6 mmol/L Critically low 21.0-32.0 [facility] Comment on above: Performed By: #### U AMIC #### [facility] [address] [address] [address] Nunu Borges Creatinine [Mass/Vol] 1.79 mg/dL Critically high 0.55-1.02 [facility] Comment on above: Performed By: #### U AMIC #### [facility] [address] [place] [address] Dr. Nunu Borges EGFR-AF SERBIAN 21 mL/min/1.73m2 Critically low >=60 [facility] Comment on above: Performed By: #### U AMIC #### [facility] [address] [place] [address] Dr. Nunu Borges EGFR-NON AF SERBIAN 18 mL/min/1.73m2 Critically low >=60 [facility] Comment on above: Performed By: #### U AMIC #### [facility] [address] [place] [address] Dr. Nunu Borges Glucose [Mass/Vol] 261 mg/dL Critically high 74-[address] [facility] Comment on above: Performed By: #### U AMIC #### [facility] [address] [address] [address] Nunu Borges Potassium [Moles/Vol] 4.3 mmol/L Normal 3.5-5.1 [facility] Comment on above: Performed By: #### U AMIC #### [facility] [address] [address] [address] Nunu Borges Sodium [Moles/Vol] 130 mmol/L Critically low 136-145 [facility] Comment on above: Performed By: #### U AMIC #### [facility] [address] [address] [address] Nunu Borges Urea nitrogen [Mass/Vol] 54.0 mg/dL Critically high 7.0-18.0 [facility] Comment on above: Performed By: #### U AMIC #### [facility] [address] [place] [address] Dr. Nunu Borges Urea nitrogen/Creatinine [Mass ratio] 30.2 mg/mg Normal [facility] Comment on above: Performed By: #### U AMIC #### [facility] [address] [place] [address] Dr. Nunu Borges URINE MICROSCOPIC ONLYon BACTERIA TRACE Abnormal NONE SEEN [facility] Comment on above: Performed By: #### U AMIC #### [facility] [address] [place] [address] Dr. Nunu Borges Bacteria identified Cx Nom (U) INDICATED Normal [facility] Comment on above: Performed By: #### U AMIC #### [facility] [address] [place] [address] Dr. Nunu Borges CAST SEEN Abnormal NONE SEEN [facility] Comment on above: Performed By: #### U AMIC #### [facility] [address] [place] [address] Dr. Nunu Borges Crystals LM Nom (Urine sed) NONE SEEN Normal NONE SEEN [facility] Comment on above: Performed By: #### U AMIC #### [facility] [address] [place] [address] Dr. Nunu Borges Epithelial cells LM Ql (Urine sed) RARE Normal NONE SEEN /RARE [facility] Comment on above: Performed By: #### U AMIC #### [facility] [address] [place] [address] Dr. Nunu Borges HYALINE CAST RARE Normal [facility] Comment on above: Performed By: #### U AMIC #### [facility] [address] [place] [address] Dr. Nunu Borges MUCOUS NONE SEEN Normal NONE SEEN [facility] Comment on above: Performed By: #### U AMIC #### [facility] [address] [place] [address] Dr. Nunu Borges RBC 0-2 Normal 0-2 [facility] Comment on above: Performed By: #### U AMIC #### [facility] [address] [address] [address] Nunu Borges WBC 2-5 Abnormal NONE SEEN [facility] Comment on above: Performed By: #### U AMIC #### [facility] [address] [place], [place] [address] Dr. Nunu Borges Covid-19 PCR (CVDTBH)on 01-07 SARS-CoV-2 (COVID-19) RNA GREG+probe Ql (Unsp spec) Detected Critically abnormal NOT DETECTED [facility] Comment on above: Result Comment: This test is not yet approved or cleared by the [place] FDA. When there are no FDA-approved or cleared tests available, and other criteria are met, FDA can make tests available under an emergency access mechanism called an Emergency Use Authorization (EUA). The EUA for this test is supported by the [place] Inspector of Health and Human Service's declaration that [...] for this test is supported by the [place] Inspector of Health and Human Service's (HHS's) declaration [...] used). Performed By: #### C VDTBH #### [facility] [address] [address] [address] Nunu Borges MG MAMM SCREEN 3D RODERICK CADon 01-09-2022 MG MAMM SCREEN 3D RODERICK CAD Patient: LONDON COURTNEY Exam Date: 01/09/2022 : 1955 Gender:F Ordering : DR MARIBEL ALVAREZ . Admission #: [id number] Family : Order #: [id number] CLICK HERE TO VIEW EXAM RADIOLOGY REPORT [...] Treatments None Family Cancers None LOCATION: [facility] BREAST COMPOSITION: Almost entirely fatty. FINDINGS: DIAGNOSTIC [...] Licea MD on 01/09/2022 at 12:50 Normal [facility] Cytologyon 07-20-2020 Cytology (NOTE) INTERPRETATION Cervical material, (ThinPrep vial, Imaging-assisted review): Specimen Adequacy: Satisfactory for evaluation. - Endocervical/transfo rmation zone component present. Descriptive Diagnosis: Negative for intraepithelial lesion or malignancy. Thermospray Operator: CARLOS Steward(ASCP) Electronically Signed Out chris/07/22/2020 Source: 1: Cervical material, (ThinPrep vial, Imaging-assisted review) Clinical History Postmenopausal Z12.4 Encounter for screening for malignant neoplasm of cervix GYNECOLOGIC CYTOLOGY REPORT Patient Name: LONDON COURTNEY [facility] Rec: [id number] Path Number: [id number] [facility] [employer] [facility] ANATOMIC PATHOLOGY [address] [place] [phone] [facility] Comment on above: Performed By: #### P PPVP #### [facility] [address] [place] [address] Senior Database Engineer: Jeremiah Acosta MD Main OR Intraoperative Recor handy 11-06-2017 Main OR Intraoperative Record IntraOp Document Type FTURO Summary Primary Physician: Jaun Delarosa Jr., MD Finalized Date/Time: 11/06/17 12:28:35 Pt. Name: SREEDHAR COURTNEYWENDY Gupta/Sex: 1955 Female Med Rec #: [id number] Physician: Juan Delarosa Jr., MD Financial #: [id number] Pt. Type: O Room/Bed: / Admit/Disch: 10/11/17 [...] CST, Juan Mccann Jr., MD Role Performed Rental Clerk [employer] - Primary Scrub - Primary Surgeon - [...] KIET Simons RN, Lou Applicable) Janel Matthew APPLIANCE TESTER, [place] Time Out Complete 10/11/17 13:18:00 Allergies Reviewed? Yes Allergies Reviewed Self/Patient With Body Position Frog Legged Prep Area PERINIUM Prep Agents Betadine Solution Skin. Condition Intact, [place], Warm, and Dry Additional None Specimens Collected [...] RN, Lou Ann 11/06/17 12:28 Normal [facility] Main OR Preoperative Recordo n 11-06-2017 Main OR Preoperative Record Holding Area Document Type FTURO Summary Primary Physician: Juan Delarosa Jr., MD Finalized Date/Time: 11/06/17 12:28:41 Pt. Name: LONDON COURTNEY./Sex: 1955 Female Med Rec #: [id number] Physician: Juan Delarosa Jr., MD Financial #: [id number] Pt. Type: O Room/Bed: / Admit/Disch: 10/11/17 [...] of Pain: No Comment: Skin Integrity Intact, [place], Warm, & Dry Vitals - EU Blood Pressure 98/55 Pulse 76 bpm Respirations 18 br/min SPO2 RN Reviewed Yes Last Modified By: KIET Simons RN, Lou Ann 10/11/17 13:00:54 Finalized By: KIET Simons RN, Lou Ann Document Signatures Signed By: KIET Simons RN, Lou Ann 10/11/17 13:00 Karen Rutherford LPN 10/11/17 12:58 KIET Simons RN, Lou Ann 11/06/17 12:28 Normal [facility] Coding Summary.on 10-19-2017 Coding Summary. CODING DATE: 10/19/2017 [facility] STATUS: Home (Routine DC) PAYOR: Commercial Insurance [...] disease N18.9 Chronic kidney disease, unspecified Z79.82 [facility] (current) use of aspirin Z87.891 Personal history [...] Date Saved: 10/19/2017 08:52 am Normal [facility] Operative Reporton 8 Operative Report [...] urine. The Urethra was dilated to: 30 Taj[place] w/ sounds. Devices Implanted: None. Removal: Cystoscope [...] This completes her hematuria workup.. Normal [facility] Comment on above: Result Comment: Elec tronically Signed By: Washington Bennett MD, Juan Rios\.br\Date and Time Signed: 10/11/17 13:26 EDT Vital Signs Date Time Vital Sign Value Performing Clinician Facility 04-05-2023 10:00-0500 Body height 154.94 cm Ghislaine Ada Other [facility] Other 04-05-2023 10:00-0500 Body mass index (BMI) [Ratio] 29.85 kg/m2 Ghislaine Ada Other [facility] Other 04-05-2023 10:00-0500 Body temperature 97.2 [degF] Ghislaine Ada Other [facility] Other 04-05-2023 10:00-0500 Body weight 71.67 kg Ghislaine Aad Other [facility] Other 04-05-2023 10:00-0500 Diastolic blood pressure 60 mm[Hg] Ghislaine Ada Other [facility] Other 04-05-2023 10:00-0500 Respiratory rate 18 /min Ghislaine Ada Other [facility] Other 04-05-2023 10:00-0500 SaO2% (BldA) [Mass fraction] 98 % Ghislaine Ada Other [facility] Other 04-05-2023 10:00-0500 Systolic blood pressure 124 mm[Hg] Ghislaine Ada Other [facility] Other 09-07-2022 14:00-0400 Body height 154.94 cm Ghislaine Ada Other [facility] Other 09-07-2022 14:00-0400 Body mass index (BMI) [Ratio] 29.47 kg/m2 Ghislaine Ada Other [facility] Other 09-07-2022 14:00-0400 Body temperature 97.3 [degF] Ghislaine Ada Other [facility] Other 09-07-2022 14:00-0400 Body weight 70.76 kg Ghislaine Ada Other [facility] Other 09-07-2022 14:00-0400 Diastolic blood pressure 70 mm[Hg] Ghislaine Ada Other [facility] Other 09-07-2022 14:00-0400 Respiratory rate 18 /min Ghislaine Ada Other [facility] Other 09-07-2022 14:00-0400 SaO2% (BldA) [Mass fraction] 97 % Ghislaine Ada Other [facility] Other 09-07-2022 14:00-0400 Systolic blood pressure 110 mm[Hg] Ghislaine Ada Other [facility] Other 03-23-2022 11:20-0500 Body height 154.94 cm Ghislaine Ada Other [facility] Other 03-23-2022 11:20-0500 Body mass index (BMI) [Ratio] 28.75 kg/m2 Ghislaine Ada Other [facility] Other 03-23-2022 11:20-0500 Body temperature 96.2 [degF] Ghislaine Ada Other [facility] Other 03-23-2022 11:20-0500 Body weight 69.04 kg Ghislaine Ada Other [facility] Other 03-23-2022 11:20-0500 Diastolic blood pressure 80 mm[Hg] Ghislaine Ada Other [facility] Other 03-23-2022 11:20-0500 Respiratory rate 18 /min Ghislaine Ada Other [facility] Other 03-23-2022 11:20-0500 SaO2% (BldA) [Mass fraction] 96 % Ghislaine Ada Other [facility] Other 03-23-2022 11:20-0500 Systolic blood pressure 122 mm[Hg] Ghislaine Ada Other [facility] Other 09-01-2021 11:00-0400 Body height 154.94 cm Ghislaine Ada Other [facility] Other 05-26-2022 11:00-0400 Body mass index (BMI) [Ratio] 31.29 kg/m2 Ghislaine Ada Other [facility] Other 09-01-2021 11:00-0400 Body temperature 96.8 [degF] Ghislaine Ada Other [facility] Other 09-01-2021 11:00-0400 Body weight 75.12 kg Ghislaine Ada Other [facility] Other 09-01-2021 11:00-0400 Diastolic blood pressure 74 mm[Hg] Ghislaine Ada Other [facility] Other 09-01-2021 11:00-0400 Respiratory rate 18 /min Ghislaine Ada Other [facility] Other 09-01-2021 11:00-0400 SaO2% (BldA) [Mass fraction] 97 % Ghislaine Ada Other [facility] Other 09-01-2021 11:00-0400 Systolic blood pressure 130 mm[Hg] Ghislaine Ada Other [facility] Other 02-10-2021 10:20-0400 Body height 154.94 cm Ghislaine Daa Other [facility] Other 02-10-2021 10:20-0400 Body mass index (BMI) [Ratio] 30.83 kg/m2 Ghislaine Ada Other [facility] Other 02-10-2021 10:20-0400 Body temperature 96 [degF] Ghislaine Ada Other [facility] Other 02-10-2021 10:20-0400 Body weight 74.03 kg Ghislaine Ada Other [facility] Other 02-10-2021 10:20-0400 Diastolic blood pressure 74 mm[Hg] Ghislaine Ada Other [facility] Other 02-10-2021 10:20-0400 Respiratory rate 18 /min Ghislaine Ada Other [facility] Other 02-10-2021 10:20-0400 SaO2% (BldA) [Mass fraction] 94 % Ghislaine Ada Other [facility] Other 02-10-2021 10:20-0400 Systolic blood pressure 110 mm[Hg] Ghislaine Ada Other [facility] Other Encounters Encounter Date Encounter Type Care Provider Facility Start: 12-11-2023 End: 12-11-2023 ambulatory MARIBEL ALVAREZ Not Available Start: 10-18-2023 End: 10-18-2023 ambulatory SHAIKH JACQUI Not Available Start: 10-09-2023 End: 10-09-2023 ambulatory MARIBEL ALVAREZ [facility] Start: 10-01-2023 End: 10-01-2023 ambulatory SHARONA E RAMBASEK Not Available Start: 09-26-2023 End: 09-26-2023 ambulatory SHARONA E RAMBASEK Not Available Start: 09-25-2023 End: 09-25-2023 ambulatory MARIBEL NADERER Not Available Start: 09-24-2023 End: 09-24-2023 ambulatory SHARONA E RAMBASEK Not Available Start: 09-20-2023 End: 09-20-2023 ambulatory ARIANNA GUY Not Available Start: 09-19-2023 End: 09-19-2023 ambulatory BROCK FISHER JR [facility] Start: 09-19-2023 End: 09-19-2023 ambulatory BROCK Crandall MICHELLEANA ROME [facility] Start: 09-19-2023 Encounter for other preprocedural examination BROCK FISHER JR [facility] Start: 08-01-2023 End: 08-01-2023 ambulatory BROCK BENNETT Not Available Start: 07-23-2023 End: 07-23-2023 ambulatory SAGE Jose BETTE Not Available Start: 06-19-2023 End: 06-19-2023 ambulatory ANAIS Candido MELTON Not Available Start: 06-12-2023 End: 06-12-2023 ambulatory MARIBEL ALVAREZ Not Available Start: 04-05-2023 End: 04-05-2023 ambulatory Ghislaine Ada Other [facility] Other Start: 04-05-2023 Office outpatient vi sit 25 minutes Ghislaine Ada [facility] Start: 09-07-2022 End: 09-07-2022 ambulatory Ghislaine Ada Other [facility] Other Start: 09-07-2022 Office outpatient vi sit 15 minutes Ghislaine Ada [facility] Start: 08-31-2022 End: 09-01-[address] MARIBEL ALVAREZ Facility:[facility] Start: 08-18-2022 End: 08-19-[address] MARIBEL ALVAREZ Facility:[facility] Start: 07-26-2022 End: 07-26-[address] MARIBEL ALVAREZ Facility:[facility] Start: 07-18-2022 End: 07-18-2022 ambulatory Ghislaine Ada Other [facility] Other Start: 07-18-2022 Telephone encounter Ghislaine Ada [facility] Start: 03-23-2022 End: 03-23-2022 ambulatory Ghislaine Ada Other [facility] Other Start: 03-23-2022 Office outpatient vi sit [...] 09-13-2021 End: 09-13-2021 ambulatory Ghislaine Ada Other [facility] Other Start: 09-13-2021 Telephone encounter Ghislaine Ada [facility] Start: 09-01-2021 End: 09-01-2021 ambulatory Ghislaine Ada Other [facility] Other Start: 09-01-2021 Office outpatient vi sit 25 minutes Ghislaine Ada [facility] Start: 09-01-2021 Telephone encounter Ghislaine Ada [facility] Start: 08-22-2021 End: 08-22-2021 ambulatory Ghislaine Ada Other [facility] Other Start: 08-22-2021 Telephone encounter Ghislaine Ada [facility] Start: 08-15-2021 End: 08-15-2021 ambulatory Ghislaine Ada Other [facility] Other Start: 08-15-2021 Telephone encounter Ghislaine Ada [facility] Start: 05-24-2021 End: 05-24-2021 ambulatory Ghislaine Ada Other [facility] Other Start: 05-24-2021 Telephone encounter Ghislaine Ada [facility] Start: 02-21-2021 End: 02-21-2021 ambulatory Ghislaine Ada Other [facility] Other Start: 02-21-2021 Telephone encounter Ghislaine Ada [facility] Start: 02-11-2021 End: 02-11-2021 ambulatory Ghislaine Ada Other [facility] Other Start: 02-11-2021 Telephone encounter Ghislaine Ada [facility] Start: 02-10-2021 End: 02-10-2021 ambulatory Ghislaine Ada Other [facility] Other Start: 02-10-2021 Office outpatient vi sit 25 minutes Ghislaine Ada [facility] Start: 07-20-2020 End: 07-21-2020 Patient encounter procedure MARIBEL AVALOS [facility] Start: 10-11-2017 End: 10-12-2017 Patient encounter Bakari Berg Facility:[facility] [place] [place] Payers Date Payer Category Payer Private Health Insurance [id number] 2020 Unknown [id number] 2017 Private Health Insurance [id number] Self-pay 1955 Unknown [id number] 2.16.8 40.1.712264.3.579.2.173 1955 Unknown [id number] 2.16.84 0.1.133432.3.579.2.593 1955 Unknown [id number] 2.16.84 0.1.860772.3.579.2.593 1953 Unknown [id number] 2.16.84 0.1.185015.3.579.2.593 1953 Unknown [id number] 2.16.84 0.1.453557.3.579.2.593 1953 Unknown [id number] 2.16.84 0.1.713457.3.579.2.593 1953 Unknown [id number] 2.16.84 0.1.265348.3.579.2.593 1953 Unknown [id number] 2.16.84 0.1.585403.3.579.2.593 1953 Unknown [id number] 2.16.84 0.1.214854.3.579.2.593 1953 Unknown [id number] 2.16.84 0.1.914771.3.579.2.593 1953 Unknown [id number] 2.16.84 0.1.442439.3.579.2.593 1953 Unknown [id number] 2.16.84 0.1.149026.3.579.2.593 1953 Unknown [id number] 2.16.8 40.1.575701.3.579.2.128 1953 Unknown [id number] 2.16.8 40.1.370037.3.579.2.128 1955 Unknown [id number] 2.16.8 40.1.959424.3.579.2.128 1955 Unknown [id number] 2.16.8 40.1.791478.3.579.2.128 1953 Unknown [id number] 2.16.8 40.1.774576.3.579.2.128 1953 Unknown [id number] 2.16.8 40.1.746124.3.579.2.128 1953 Unknown [id number] 2.16.84 0.1.898939.3.579.2.1259 1953 Unknown [id number] 2.16.84 0.1.737233.3.579.2.1259 1953 Unknown [id number] 2.16.84 0.1.645280.3.579.2.1258 1953 Unknown [id number] 2.16.84 0.1.947625.3.579.2.1258 1953 Unknown [id number] 2.16.84 0.1.622291.3.579.2.1258 1953 Unknown [id number] 2.16.84 0.1.083902.3.579.2.1258 1953 Unknown [id number] 2.16.84 0.1.015253.3.579.2.1258 1953 Unknown [id number] 2.16.84 0.1.883882.3.579.2.1258 1953 Unknown [id number] 2.16.84 0.1.035983.3.579.2.1258 1953 Unknown [id number] 2.16.84 0.1.857388.3.579.2.1258 1953 Unknown [id number] 2.16.84 0.1.612881.3.579.2.1258 1955 Unknown [id number] 2.16.84 0.1.525776.3.579.2.1258 1955 Unknown [id number] 2.16.84 0.1.874781.3.579.2.1259 Medicare [id number] 2. 16.840.1.998615.19 Unknown [id number] 2.16.84 0.1.767413.3.579.2.593 Social History Date Type Detail Facility Unknown if ever smoked [facility] Other Sex Assigned At Sex Assigned At Bir th [facility] Other Clinical Notes 12-27-2016 to 09-22-2023 Note [...] Kelly Mckeon MD on 09/22/2023 8:01 AM [facility] 04-05-2023 Evaluation note Encounter Date Diagnosis [...] monitor LFTs and lipid profile with PCP [facility] Other 06-01-2023 Evaluation note* Encounter Date Diagnosis [...] monitor LFTs and lipid profile with PCP [facility] Other 05-12-2023 NotePROCEDURE: XR KNEE LT 3V HISTORY: Pain of joint of knee ; acute left knee pain COMPARISON: None. FINDINGS: BONES:No fracture, acute abnormality, or significant arthropathy. SOFT TISSUES:No visible soft tissue swelling. EFFUSION:None visible. OTHER: Negative. IMPRESSION: 1. No appreciable acute abnormality or significant degenerative joint disease. Electronically authenticated by: PEGGY CORTEZ Date: 2022-08-18 12:27[facility]12-15-2022 Evaluation note* Encounter Date Diagnosis Assessment [...] within the goal. Continue oral vitamin D [facility] Other 07-12-2022 NotePROCEDURE: XR PELVIS W_OBL MIN [...] Electronically authenticated by: CONNIE LICEA Date: 2021-10-18 19:13[facility]05-26-2022 Evaluation note* Encounter Date Diagnosis Assessment [...] within the goal. Continue oral vitamin D [facility] Other 05-26-2022 Evaluation note* Encounter Date Diagnosis Assessment Notes Treatment Notes Treatment Clinical Notes August, Type 2 diabetes mellitus with diabetic chronic kidney disease (ICD-10 - E11.22) [facility] Other 11-04-2021 Evaluation note* Encounter Date Diagnosis [...] the goal and Vit D is normal. [facility] Other 09-20-2017 History general Narrative - Reported* Type Description Date Medical History diabetes mellitus Medical History hypertension Medical History hyperlipidemia Surgical History COLONOSCOPY NORMAL P ER PATIENT AT [facility] 12-27-2016 Hospitalization History [facility] 2016 [facility] Other 09-20-2017 History general Narrative - Reported* Type Description Date Medical History diabetes mellitus Medical History hypertension Medical History hyperlipidemia Surgical History COLONOSCOPY NORMAL P ER PATIENT AT [facility] 12-27-2016 Hospitalization History Dehydration [place] 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 08/09/2021 [facility] Other 09-20-2017 History general Narrative - Reported* Type Description Date Medical History diabetes mellitus Medical History hypertension Medical History hyperlipidemia Surgical History COLONOSCOPY NORMAL P ER PATIENT AT [facility] 12-27-2016 Hospitalization History De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, UTI, SEPSIS 08/09/2021 [facility] Other 09-20-2017 History general Narrative - Reported* Type Description Date Medical History diabetes mellitus Medical History hypertension Medical History hyperlipidemia Medical History OSTEOPOROSIS Surgical History COLONOSCOPY NORMAL P ER PATIENT AT [facility] 12-27-2016 Hospitalization History De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, UTI, SEPSIS 08/09/2021 [facility] Other Evaluation noteNo InformationNoNeuroNascent Other Evaluation noteNoNeuroNascent Other History general Narrative - ReportedNoNeuroNascent Other Summary Purpose Family History No Family [...] content) DATE CREATED AUTHOR 12/05/2017 Maverick Gamez [facility] DATE CREATED AUTHOR AUTHOR'S ORGANIZ ATION 07/23/2020 [facility] DATE CREATED AUTHOR AUTHOR'S ORGANIZ ATION 09/16/2022 [facility] DATE CREATED AUTHOR AUTHOR'S ORGANIZ ATION 10/10/2023 [facility] DATE CREATED AUTHOR AUTHOR'S ORGANIZ ATION 12/12/2023 [facility] EPIC REASON FOR VISIT [...] BE BASED ON THE PRIMARY CLINICAL RECORDS. [employer] provides no warranty or guarantee of the accuracy or completeness of information in this document.
[2024-01-11 09:31] LABS: Mean Corpuscular HGB Conc 31.7 g/dL (29.9-35.2); Mean Corpuscular Hemoglobin 29.9 pg (26.7-34.0); Mean Corpuscular Volume 94.3 fL (81.0-99.0); Mean Platelet Volume 10.5 fL (9.5-13.5); Platelet Count 270 10^3/uL (150-450); Red Blood Count 4.35 10^6/uL (4.20-5.40); Red Cell Distribution Width 12.7 % (11.0-15.0); White Blood Count 5.2 10^3/uL (4.0-11.0)
[2024-01-11 09:58] LABS: Bilirubin Urine NEGATIVE (NEGATIVE); Blood Urine NEGATIVE (NEGATIVE); Clarity Urine CLEAR (CLEAR); Color Urine YELLOW (YELLOW); Glucose Urine UA >=1000 mg/dL (NEGATIVE); Ketones Urine NEGATIVE (NEGATIVE); Leukocyte Esterase Urine NEGATIVE (NEGATIVE); Nitrite Urine NEGATIVE (NEGATIVE); Protein Urine NEGATIVE (NEG/TRACE); Urobilinogen Urine 0.2 EU/dL (0.2-1.0)
[2024-01-11 10:25] LABS: Creatinine Urine Random 94.11 mg/dL (20.00-300.00); Protein Creatinine Ratio Urine 0.16; Total Protein Urine Random 15.2 mg/dL (<=11.9)
[2024-01-11 10:37] LABS: Crystals Seen? Seen #/HPF (None Seen)
[2024-01-11 10:38] LABS: Bacteria Urine NONE SEEN #/HPF (NONE SEEN); Calcium Oxalate Crystals Urine MODERATE; Cast Seen? NONE SEEN #/LPF (NONE SEEN); Mucus Urine NONE SEEN (NONE SEEN); RBC Urine 0-2 #/HPF (0-2); Squamous Epithelial Cell Urine NONE SEEN #/LPF (NONE/RARE); WBC Urine 0-2 #/HPF (NONE SEEN)
[2024-01-11 10:53] LABS: Albumin Level 3.5 g/dL (3.4-5.0); BUN Creatinine Ratio 17.9; Calcium 9.4 mg/dL (8.5-10.1); Carbon Dioxide 30.6 mmol/L (21.0-32.0); Chloride 100 mmol/L (98-107); Estimated GFR (African America 47 (>=60 mL/min/1.73m^2); Estimated GFR (Non-African Ame 39 (>=60 mL/min/1.73m^2); Glucose 107 mg/dL (74-106); Magnesium 2.1 mg/dL (1.8-2.4); Phosphorus 3.8 mg/dL (2.6-4.7); Potassium 4.6 mmol/L (3.5-5.1); Sodium 135 mmol/L (136-145); Uric Acid 4.6 mg/dL (2.6-6.0)
[2024-01-12 12:08] LABS: PTH, Intact 36 pg/mL (15-65)
== END 2024-01-11 09:15 | disposition home or self-care (01) ==
LOC: LAB 09:14
PROVIDERS: PCP Family Medicine; Visit Provider Internal Medicine
DX: N25.81 Secondary hyperparathyroidism of renal origin (principal); I12.9 Hypertensive chronic kidney disease with stage 1 through stage 4 chronic kidney disease, or unspecified chronic kidney disease; E11.22 Type 2 diabetes mellitus with diabetic chronic kidney disease; N18.9 Chronic kidney disease, unspecified; D63.1 Anemia in chronic kidney disease; N18.30 Chronic kidney disease, stage 3 unspecified
CPT/HCPCS: 36415; 80069; 81001; 82306; 82570; 83735; 83970; 84156; 84550; 85027

== ENCOUNTER 2024-05-06 09:15 | Outpatient (OUT) | payer OTHER, MEDICAID, SELFPAY ==
--- NOTE | 2024-05-06 09:32 | MM_ITS ---
Patient Name: LONDON COURTNEY MR#: [id number] : 1955 Exam Date: 05/06/2024 Ordering Doctor: DR oRmulo Garcia . RADIOLOGY REPORT PROCEDURE: MM TOMOSYNTHESIS SCREENING BI COMPARISON: MG MAMM SCREEN 3D [place] CAD, 01/09/2022. MM TOMOSYNTHESIS SCREENING BI, 03/26/2023. INDICATIONS: Screening Calculator Name NCI Breast Cancer Risk Assessment Tool 5 Year Breast Cancer Risk 1.40% Lifetime Breast Cancer Risk 4.10% Personal Breast Cancer No Personal Ovarian Cancer No Treatments None Family Cancers None LOCATION: [facility] BREAST COMPOSITION: The breasts are almost entirely fatty. FINDINGS: DIAGNOSTIC CATEGORY 1--NEGATIVE. NO CHANGE FROM COMPARISON ASSESSMENT. Scattered benign-appearing nodules are present. Scattered benign-appearing calcifications are present. RIGHT BREAST: No significant suspicious finding. LEFT BREAST: No significant suspicious finding. RECOMMENDATIONS: ROUTINE MAMMOGRAM AND CLINICAL EVALUATION IN 12 MONTHS. PLEASE NOTE: A NORMAL MAMMOGRAM DOES NOT EXCLUDE THE POSSIBILITY OF BREAST CANCER. A CLINICALLY SUSPICIOUS PALPABLE LUMP SHOULD BE BIOPSIED. Dictated by: Mateo Fox MD on 05/06/2024 at 11:58 Approved by: Mateo Fox MD on 05/06/2024 at 12:00
[2024-05-06 10:12] LABS: Estimated Average Glucose 123 mg/dL; Glycohemoglobin A1C 5.9 % (4.5-6.2)
[2024-05-06 10:44] LABS: Anion Gap 10.7; BUN Creatinine Ratio 23.4; Calcium 9.2 mg/dL (8.5-10.1); Carbon Dioxide 29.2 mmol/L (21.0-32.0); Chloride 102 mmol/L (98-107); Chol HDL Ratio 2.1; Cholesterol 158 mg/dL (<=200); Estimated GFR (African America 45 (>=60 mL/min/1.73m^2); Estimated GFR (Non-African Ame 37 (>=60 mL/min/1.73m^2); Glucose 99 mg/dL (74-106); HDL Cholesterol 74 mg/dL (40-60); Potassium 3.9 mmol/L (3.5-5.1); Sodium 138 mmol/L (136-145); Triglycerides 82 mg/dL (<=150); VLDL CHOLESTEROL 16.4 mg/dL
== END 2024-05-06 09:16 | disposition home or self-care (01) ==
LOC: MAMMO 09:15
PROVIDERS: PCP Family Medicine; Visit Provider Family Medicine
DX: Z12.31 Encounter for screening mammogram for malignant neoplasm of breast (principal); E11.65 Type 2 diabetes mellitus with hyperglycemia; N18.31 Chronic kidney disease, stage 3a; Z79.899 Other long term (current) drug therapy; E78.5 Hyperlipidemia, unspecified
CPT/HCPCS: 36415; 77063; 77067; 80048; 80061; 83036

== ENCOUNTER 2024-06-15 18:26 | Emergency (ER) | payer OTHER, SELFPAY ==
[2024-06-15 18:33] VITALS: BP 131/74; PULSE 92; TEMP 36.7; O2SAT 94; BMI 23.9
--- OUTSIDE RECORDS SUMMARY | 2024-06-15 18:34 | XMS_ITS | CCD ---
Author Organization [facility] Care Team Providers Care Locomotive Engineer Electric Name Role Phone Rice, Bakari W Unavailable Unavailable Rice, Bakari W Unavailable Unavailable Rice, Bakari W Unavailable Unavailable NADERER, ROMULO~[id number] UNKNOWN Unavailable Unavailable NADERER, ROMULO AVALOS Primary Care Unavailabl e DELAROSA, TIANA MURPHY Referring Unavailabl e Ada, Ghislaine Unavailable NADERER, DR ROMULO Mueller Admitting Unavailable NADERER, DR ROMULO Mueller Attending Unavailable ZIEBER, DR PEGGY Lisa Consulting Unavailable NADERER, DR ROMULO Mueller Primary Care Unavailable NADERER, DR ROMULO Mueller Consulting Unavailable NADERER, DR ROMULO Mueller Consulting Unavailable NADERER, DR ROMULO Mueller Admitting Unavailable NADERER, DR ROMULO Mueller Attending Unavailable NADERER, DR ROMULO Mueller Primary Care Unavailable NADERER, DR ROMULO Mueller Primary Care Unavailable ADA, GHISLAINE Admitting Unavailable ADA, GHISLAINE Consulting Unavailable ADA, GHISLAINE Attending Unavailable NADERER, DR ROMULO Mueller Primary Care Unavailable ADA, GHISLAINE Attending Unavailable ADA, GHISLAINE Admitting Unavailable ADA, GHISLAINE Consulting Unavailable NADERER, DR ROMULO Mueller Primary Care Unavailable NADERER, DR ROMULO Mueller Consulting Unavailable NADERER, DR ROMULO Mueller Attending Unavailable NADERER, DR ROMULO Mueller Admitting Unavailable NADERER, DR ROMULO Mueller Primary Care Unavailable ADA, GHISLAINE Attending Unavailable ADA, GHISLAINE Admitting Unavailable ADA, GHISLAINE Consulting Unavailable NADERER, DR ROMULO Mueller Primary Care Unavailable NADERER, DR ROMULO Mueller Consulting Unavailable NADERER, DR ROMULO Mueller Admitting Unavailable NADERER, DR ROMULO Mueller Attending Unavailable NADERER, DR ROMULO Mueller Primary Care Unavailable NADERER, DR ROMULO Mueller Admitting Unavailable NADERER, DR ROMULO Mueller Attending Unavailable WEST, DR CONNIE José Consulting Unavailable NADERER, DR ROMULO Muleler Consulting Unavailable NADERER, DR ROMULO Mueller Primary Care Unavailable WEST, DR CONNIE José Consulting Unavailable NADERER, DR ROMULO Mueller Admitting Unavailable NADERER, DR ROMULO Mueller Attending Unavailable NADERER, DR ROMULO Mueller Consulting Unavailable NADERER, DR ROMULO Mueller Primary Care Unavailable NADERER, DR ROMULO Mueller Consulting Unavailable FAWWAD, H Admitting Unavailable FAWJAYDEN, H Attending Unavailable FAWWAShana, H Consulting Unavailable ISAMAR WATERS Consulting Unavailable NADERER, DR ROMULO Mueller Consulting Unavailable NADERER, DR ROMULO Mueller Admitting Unavailable NADERER, DR ROMULO Mueller Primary Care Unavailable NADERER, DR ROMULO Mueller Attending Unavailable NADERER, DR ROMULO Mueller Primary Care Unavailable GRILLIS ., DR KELLY Calderon Consulting Unavaila ble GRILLIS ., DR KELLY Calderon Attending Unavaila ble GRILLIS ., DR KELLY Calderon Admitting Unavaila ble UIR II, CHANO Consulting Unavailable VIANEY MAGANA Consulting Unavailable BROCK KUMAR JR Referring Unavailabl e NADERER, ROMULO Primary Care Unavailable BROCK KUMAR JR Referring Unavailabl e NADERER, ROMULO Primary Care Unavailable BROCK KUMAR JR Attending Unavailabl e STEPANIC BROCK ROME Referring Unavailabl e NADERER, ROMULO Primary Care Unavailable NATALIA ROME, BROCK Crandall Attending Unavailabl e STEPBROCK PEREZ JR Referring Unavailabl e NADERER, ROMULO Primary Care Unavailable BROCK KUMAR JR Attending Unavailabl e STEPANA ROME, BROCK Crandall Referring Unavailabl e NADERER, ROMULO Primary Care Unavailable NADEREMaria L, ROMULO Referring Unavailable NADEREMaria L, ROMULO Primary Care Unavailable Romulo Alvarez MD Unavailable Romulo Alvarez MD Primary Care Provider ROMULO ALVAREZ Attending Unavailable JACQUI, Attending Unavailable VIANEY MELTON Attending Unavailable NADERER, ROMULO Attending Unavailable VIANEY MELTON Attending Unavailable JR. NATALIA, BROCK Crandall Attending Unavaila ble NADERER, ROMULO Attending Unavailable LAWSONBASESHARONA Walter Attending Unavailable NADERER, ROMULO Attending Unavailable RAMBASESHARONA Walter Attending Unavailable SAGE AMOS Referring Unavailable ARIANNA GUY Attending Unavailable SAGE AMOS Referring Unavailable SAGE AMOS Attending Unavailable JR. NATALIA, BROCK Crandall Referring Unavaila ble STEPANIC, BROCK BENNETT Attending SAGE Christopher Attending Unavailable SHARONA GUILLEN Attending Unavailable Romulo Alvarez MD Primary Care Provider Allergies Allergy Classification Reported Allergen(s) Allergy Type Date of Onset Reaction(s) Facility (1 source) No Known Medication Allergies; Translations: [No Known Medication Allergies] Propensity to adverse reactions (disorder) [facility] Repository Medications Current Medications Medication [...] nee ded Orally every 6 hrs Active acetaminophen 325 mg / oxyCODONE hydrochloride 10 mg oral tablet (20 sources) Opioid Agonist Start: 01-31-2024 take 1 tablet by mouth every six hours Oxycodone-Acetaminophen Active 1 TAB PO Every 6 hours January 31, 2024 12:00am Start: 12-13-2023 End: 07-04-2024 take 1 tablet by mouth four times daily as needed for pain oxyCODONE-acetaminophen (Percocet) 10-32 5 MG tablet Indications: Degeneration of intervertebral disc of lumbar region with discogenic back pain Take 1 tablet by mouth 4 (four) times a day as needed for severe pain 120 tablet 06/04/2024 07/04/2024 Active Start: 09-05-2023 End: 10-05-2023 oxyCODONE-acetaminophen (PER COCET) 10-325 mg per tablet Take 1 tablet by mouth 4 (four) times a day as needed. Max Daily Amount: 4 tablets 09/05/2023 10/05/2023 Active alendronic acid 70 mg oral tablet (18 sources) Bisphosphonate Start: 01-31-2024 take 70 mg by mouth every week Alendronate Active 70 MG PO every week January 31, 2024 12:00am Start: 06-12-2023 End: 02-28-2024 take 1 tablet by mouth in the morning alendronate (Fosamax) 70 MG tablet Indications: Age-related osteoporosis without current pathological fracture (CMS/HCC) Take 1 tablet (70 mg) by mouth every 7 (seven) days Take in the morning with a full glass of water, on an empty stomach, and do not take anything else by mouth or lie down for the next 30 min. 12 tablet 3 06/12/2023 02/28/2024 Discontinued Start: 06-12-2023 take 1 tablet by emilee th every week alendronate (FOSAMAX) 70 mg tablet Take 1 tablet (70 mg total) by mouth Once a week. sundays06/12/2023 Active Alendronate Sodi um 70 MG 1 tablet 30 minutes before the first food, beverage or medicine of the day with plain water Orally ONCE A WEEK Active aspirin 81 mg delayed release oral tablet (20 sources) Platelet Aggregation Inhibitor, Nonsteroidal Anti-inflammatory Drug End: 02-28-2024 take 1 tablet by mouth in the morning aspirin 81 MG EC tablet Take 81 mg by mouth in the morning. 02/28/2024 Discontinued take 1 tablet by emilee th every twenty-four hours Aspirin 81 MG 1 Tablet Orally Daily Active atorvastatin 10 mg oral tablet (20 sources) HMG-CoA Reductase Inhibitor Start: 11-12-2023 End: 11-11-2024 take 1 tablet by mouth once daily atorvastatin (Lipitor) 10 MG tablet Indications: Dyslipidemia (CMS/HCC) Take 1 tablet (10 mg) by mouth Daily 30 tablet 11 11/12/2023 11/11/2024 Active take 1 tablet by mouth in the mo rn atorvastatin (LIPITOR) 10 mg tablet Take 1 tablet (10 mg total) by mouth in the morning. Active Calcium + D + K 750-500-40 MG-UNT-MCG (1 source) take 1 tablet by mouth twice daily at mealtime Calcium + D + K 750-500-40 MG-UNT-MCG 1 tablet with meals Orally Twice a day Active calcium carbonate 750 mg chewable tablet (20 sources) calcium carbonat e EX (Tums Extra Strength) 750 MG chewable tablet Chew 750 mg Daily Active calcium carbonate 1500 mg / cholecalciferol 0.01 mg oral tablet (20 sources) Vitamin D Start: 01-31-2024 take 1 tablet by mouth twice daily Calcium Carbonate-Vitamin D3 Active 1 TAB PO Twice daily January 31, 2024 12:00am Start: 12-13-2023 take 1 tablet by emilee th twice daily Calcium Carb-Cholecalciferol 600-10 MG-MCG tablet Indications: Age-related osteoporosis without current pathological fracture (CMS/HCC) TAKE 1 TABLET BY MOUTH TWICE DAILY 180 tablet 5 12/13/2023 Active Centrum Silver 50+Women - (1 source) Centrum Silver 5 0+Women - as directed Orally Active cholecalciferol 0.025 mg oral tablet (20 sources) Vitamin D take 1 tablet by mouth in the morning cholecalciferol (Vitamin D-3) 25 MCG tablet Take 25 mcg by mouth in the morning. Active End: 09-19-2023 take 1 tablet by mouth in the morning cholecalciferol 1,000 units tablet Take 1 tablet (1,000 Units total) by mouth in the morning. 09/19/2023 Discontinued take 1 capsule by mo [facility] every twenty-four hours Vitamin D3 50 MCG (1999) 1 capsule Orally Once a day Active docusate sodium 50 mg / sennosides, fci 8.6 mg oral tablet (20 sources) take 1 tablet by emilee th in the morning senna-docusate sodium (Senokot-S) 8.6-50 MG tablet Take 1 tablet by mouth in the morning. Active take 1 tablet by emilee th every twenty-four hours Senna S 8.6-50 MG 1 tablet as needed Orally ONCE A DAY Active empagliflozin 10 mg oral tablet (20 sources) Sodium-Glucose Cotransporter 2 Inhibitor Start: 06-03-2024 take 1 tablet by mouth once daily empagliflozin (Jardiance) 10 MG Indications: Type 2 diabetes mellitus with stage 3a chronic kidney disease, without long-term current use of insulin (HCC) ([facility]) Take 1 tablet (10 mg) by mouth Daily 30 tablet 5 06/03/2024 Active Start: 05-01-2024 take 1 tablet by emilee th once daily empagliflozin (Jardiance) 10 MG Indications: Type 2 diabetes mellitus with stage 3a chronic kidney disease, without long-term current use of insulin (HCC) ([facility]) Take 1 tablet (10 mg) by mouth Daily 30 tablet 5 05/01/2024 Active Start: 12-11-2023 take 1 tablet by emilee th once daily empagliflozin (Jardiance) 10 MG Indications: Type 2 diabetes mellitus with stage 3a chronic kidney disease, without long-term current use of insulin (HCC) ([facility]) Take 1 tablet (10 mg) by mouth Daily 30 tablet 5 12/11/2023 Active ferrous sulfate 325 mg oral tablet (20 sources) Start: 09-26-2023 take 1 tablet by mouth every other day Ferrous Sulfate (Ferosul) 325 mg (65 mg iron) tablet Active 0 .ROUTE .COMPLEX 45 September 26, 2023 12:47pm TAKE 1 TABLET BY MOUTH EVERY OTHER DAY Start: 09-25-2023 End: 09-26-2023 Ferrous Sulfate Discontinued 325 MG PO Every 48 hours 45 90 September 25, 2023 1:28pm September 26, 2023 12:47pm Start: 02-10-2021 take 1 tablet by emilee [...] every other day for 90 day(s) Active FLUoxetine 10 mg oral capsule (20 sources) Serotonin Reuptake Inhibitor Start: 04-03-2024 take 1 capsule by mouth once daily FLUoxetine (PROzac) 10 MG capsule Indications: KENZIE (generalized anxiety disorder) (CMS/HCC) TAKE 1 CAPSULE BY MOUTH DAILY 30 capsule 2 04/03/2024 Active Start: 01-31-2024 take 10 mg by mouth once daily Fluoxetine Active 10 MG PO Daily January 31, 2024 12:00am Start: 10-18-2023 End: 04-01-2024 take 1 capsule by mouth once daily FLUoxetine (PROzac) 10 MG capsule Indications: KENZIE (generalized anxiety disorder) (CMS/HCC) Take 1 capsule (10 mg) by mouth Daily 30 capsule 2 01/02/2024 04/01/2024 Active hydroCHLOROthiazide 25 mg / losartan potassium 100 mg oral tablet (15 sources) Thiazide Diuretic, Angiotensin 2 Receptor Michelle take 1 tablet by mouth once in the morning losartan-hydrochlorothiazide (HYZAAR) 100-25 mg per tablet Take 1 tablet by mouth in the morning. Active take 1 tablet by emilee th every twenty-four hours Losartan Potassium-HCTZ 100-25 MG 1 tabl et Orally Once a day Active take 1 tablet by emilee th every twenty-four hours hydrOXYzine hydrochloride 10 mg oral tablet (20 sources) Antihistamine Start: 01-31-2024 take 10 mg by mouth three times daily Hydroxyzine Hcl Active 10 MG PO Three times daily January 31, 2024 12:00am Start: 10-18-2023 End: 04-09-2024 take 1 tablet by mouth every eight hours for anxiety hydrOXYzine HCl (Atarax) 10 MG tablet Indications: KENZIE (generalized anxiety disorder) (CMS/[facility]) Take 1 tablet (10 mg) by mouth every 8 (eight) hours if needed for anxiety 90 tablet 2 01/10/2024 Active magnesium oxide 400 mg oral tablet (20 sources) Start: 01-31-2024 take 400 mg by mouth once Magnesium Oxide Active 400 MG PO Once January 31, 2024 12:31pm Start: 01-02-2024 End: 01-31-2024 take 1 tablet by mouth once daily Magnesium Oxide Discontinued 0 .ROUTE .COMPLEX 90 January 02, 2024 9:29am January 31, 2024 12:34pm TAKE 1 TABLET BY MOUTH DAILY Start: 08-08-2023 End: 01-02-2024 take 1 tablet by mouth in the morning magnesium oxide (MAGOX) 400 mg tablet Take 1 tablet (400 mg total) by mouth in the morning. 08/18/2023 Active Start: 02-10-2021 take 1 tablet by emilee th every twenty-four hours Magnesium Oxide 400 MG 1 tab(s) Orally Once a day for 90 day(s) Feb, Active magnesium oxide (Mag-Ox) 400 mg tablet 400 mg in the morning. Active take 1 tablet by emilee th once daily Magnesium Oxide 400 (240 Mg) MG TAKE 1 TABLET BY MOUTH EVERY DAY for 90 Active metFORMIN hydrochloride 500 mg oral tablet (20 sources) Biguanide Start: 06-05-2024 take 1 tablet by mouth in the morning metFORMIN (Glucophage) 500 MG tablet Indications: Type 2 diabetes mellitus with hyperglycemia, without long-term current use of insulin (CMS/[facility]) Take 1 tablet (500 mg) by mouth in the morning and 1 tablet (500 mg) in the evening. Take with meals. 200 tablet 3 06/05/2024 Active Start: 11-12-2023 take 1 tablet by emilee th in the morning metFORMIN (Glucophage) 500 MG tablet Indications: Type 2 diabetes mellitus with hyperglycemia, without long-term current use of insulin (CMS/HCC) Take 1 tablet (500 mg) by mouth in the morning and 1 tablet (500 mg) in the evening. Take with meals. 200 tablet 3 11/12/2023 Active Start: 07-13-2023 take 1 tablet by emilee th in the morning, then take 1 tablet by mouth at mealtime metFORMIN (GLUCOPHAGE) 500 mg tablet Take 1 tablet (500 mg total) by mouth in the morning and 1 tablet (500 mg total) in the evening. Take with meals. 07/13/2023 Active End: 09-19-2023 take 0.5 tablet by mouth in the morning, then take 0.5 tablet by mouth at mealtime metFORMIN (GLUCOPHAGE) 1000 mg tablet Take 0.5 tablets (500 mg total) by mouth in the morning and 0.5 tablets (500 mg total) in the evening. Take with meals. 09/19/2023 Discontinued take 1 tablet by emilee th twice daily at mealtime metFORMIN HCl 500 mg TAKE 1 TABLET BY MOUTH WITH MEALS TWICE DAILY for 90 Active take 0.5 tablet by m outh twice daily Metformin 1000 mg 1/2 Tablet Oral bid for 90 day(s) Active metoprolol tartrate 50 mg oral tablet (20 sources) beta-Adrenergic Michelle Start: 06-21-2023 End: 12-13-2023 take 1 tablet by mouth twice daily metoprolol tartrate (Lopressor) 50 MG tablet Indications: Essential (primary) hypertension (CMS/HCC) TAKE 1 TABLET BY MOUTH TWICE DAILY 180 tablet 3 12/13/2023 Active End: 09-19-2023 take 1 tablet by mouth every twenty-four hours at bedtime metoprolol succinate XL (TOPROL-XL) 50 mg 24 hr tablet Take 1 tablet (50 mg total) by mouth in the morning and at bedtime. 09/19/2023 Discontinued take 1 tablet by emilee th every twelve hours Metoprolol Tartrate 50 MG 1 tablet with food Orally Twice a day Active Multiple Vitamins-Minerals (Centrum Silver 50+Women) tablet (10 sources) Start: 02-14-2024 take 1 tablet by mouth once daily Multiple Vitamins-Minerals (Centrum Silver 50+Women) tablet Indications: Age-related osteoporosis without current pathological fracture (CMS/HCC) Take 1 tablet by mouth daily 90 tablet 3 02/14/2024 Active Vdygzquq-Rdk-Qzlb-Fa-Vi t K-Lut (Centrum Silver Women) 8 mg iron-400 mcg-50 mcg tablet (1 source) Start: 01-31-2024 take 1 tablet by mouth once daily Rmanowsh-Azd-Dhtx-Fa-V it K-Lut (Centrum Silver Women) 8 mg iron-400 mcg-50 mcg tablet Active 1 TAB PO Daily January 31, 2024 12:00am multivit-min/iron/FA/vi t K/lut (CENTRUM SILVER WOMEN ORAL) (1 source) take 1 tablet by mouth once in the morning multivit-min/iron/FA/v it K/lut (CENTRUM SILVER WOMEN ORAL) Take 1 tablet by mouth in the morning. Active oxyCODONE hydrochloride 10 mg oral tablet (8 sources) Opioid Agonist take 1 tablet by mouth every six hours oxyCODONE HCl 10 MG 1 tablet as needed Orally every 6 hrs Active Completed/Discontinued Medications Medication Drug Class(es) Dates Sig (Normalized) Sig (Original) Multivitamins - (6 sources) Multivitamins - as directed Orally Not-Taking sod sulf-pot chloride-mag sanchez lf 1.479-0.188- 0.225 gram tablet (1 source) Start: 07-13-2022 End: 09-19-2023 sod sulf-pot chloride-mag sanchez lf 1.479-0.188- 0.225 gram tablet Indications: Encounter for screening colonoscopy Please see instructional sheet given by physicians office. 24 tablet 07/13/2022 09/19/2023 Discontinued Problems Active Problems Problem Classification Problem Date Documented Date Episodic/Chronic Anxiety disorders (20 sources) Acute stress disorder; Translations: [Acute stress reaction] Onset: 4 06-12-2023 Chronic Chronic kidney disease (20 sources) Chronic kidney disease stage 3; Translations: [Chronic kidney disease, stage 3 (moderate)] Onset: 4 10-13-2023 Chronic Deficiency and other anemia (15 sources) Anemia of renal disease; Translations: [Anemia in chronic kidney disease] 09-27-2023 Chronic Deficiency and other anemia (5 sources) Anemia in chronic kidney disease; Translations: [ANEMIA IN CHRONIC KIDNEY DISEASE] Onset: 1 Resolved: 2 Chronic Diabetes mellitus with complications (20 sources) Type 2 diabetes mellitus; Translations: [Type 2 diabetes mellitus with diabetic chronic kidney disease] Onset: 1 Resolved: 2 Chronic Diabetes mellitus without complication (3 sources) Type 2 diabetes mellitus without complications; Translations: [Type 2 diabetes mellitus without complication] Onset: 3 09-18-2023 Chronic Disorders of lipid metabolism (20 sources) Hyperlipidemia, unspecified; Translations: [Dyslipidemia] Onset: 3 Chronic Essential hypertension (20 sources) Essential (primary) hypertension; Translations: [Benign essential hypertension] Onset: 3 06-12-2023 Chronic Genitourinary symptoms and ill-defined conditions (2 sources) Frequency of micturition; Translations: [Increased frequency of urination] Onset: 4 09-18-2023 Episodic Hypertension with complications and secondary hypertension (20 sources) Hypertensive renal disease; Translations: [Hypertensive chronic kidney disease with stage 1 through stage 4 chronic kidney disease, or unspecified chronic kidney disease] Onset: 1 Resolved: 2 Chronic Osteoarthritis (20 sources) Unilateral primary osteoarthritis, left hip; Translations: [Osteoarthritis of left hip joint] Onset: 2 06-12-2023 Chronic Osteoporosis (20 sources) Senile osteoporosis; Translations: [Age-related osteoporosis without current pathological fracture] Onset: 4 06-12-2023 Chronic Other aftercare (1 source) Other correction (current) drug therapy; Translations: [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] Onset: 3 Episodic Other aftercare (1 source) shelter (current) use of aspirin; Translations: [INDUSTRIAL BOILERMAKER CURRENT USE OF ASPIRIN] Onset: 3 Episodic Other aftercare (1 source) 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; Translations: [HALF-WAY USE ORAL HYPOGLYCEMIC DX] Onset: 3 Episodic Other and unspecified benign neoplasm (1 source) Personal history of colonic polyps; Translations: [PERSONAL HISTORY OF COLONIC POLYPS] Onset: 3 Episodic Other connective tissue disease (1 source) Pain of toes of bilateral feet; Translations: [Pain in right toe(s)] 01-10-2024 Episodic Other diseases of kidney and ureters (15 sources) Secondary hyperparathyroidism; Translations: [Secondary hyperparathyroidism of renal origin] 09-27-2023 Chronic Other diseases of kidney and ureters (7 sources) Secondary hyperparathyroidism of renal origin; Translations: [Secondary hyperparathyroidism (of renal origin)] Onset: 1 Resolved: 2 Chronic Other non-traumatic joint disorders (3 sources) Pain in unspecified knee; Translations: [PAIN IN UNSPECIFIED KNEE] Onset: 3 Episodic Other non-traumatic joint disorders (1 source) Pain in left knee; Translations: [PAIN IN LEFT KNEE] Onset: 3 Episodic Other screening for suspected conditions (not mental disorders or infectious disease) (10 sources) Encounter for screening for malignant neoplasm of colon; Translations: [Encounter for screening mammogram for malignant neoplasm of breast] Onset: 2 Episodic Other skin disorders (1 source) Dystrophia unguium; Translations: [Nail dystrophy] 01-10-2024 Episodic Screening and history of mental health and substance abuse codes (2 sources) Personal history of nicotine dependence; Translations: [Ex-smoker] Onset: 4 09-18-2023 Episodic Spondylosis; intervertebral disc disorders; other back problems (20 sources) Degeneration of lumbar intervertebral disc; Translations: [DDD (degenerative disc disease), lumbar] Onset: 4 06-12-2023 Chronic Unclassified (1 source) [facility]RN KIDNEY DISEASE STG [...] sources) Weakness; Translations: [WEAKNESS] Onset: 01-26-2022 Episodic Mood disorders (9 sources) Mood disorders Onset: 02-28-2024 02-28-2024 Mycoses (20 sources) Onychomycosis; Translations: [Tinea unguium] Onset: 06-12-2023 06-12-2023 Episodic Other aftercare (20 sources) Post-discharge follow-up; Translations: [Encounter for follow-up examination after completed treatment for conditions other than malignant neoplasm] Onset: 10-18-2023 Resolved: 12-11-2023 12-11-2023 Episodic Other aftercare (11 sources) Long-term current use of drug therapy; Translations: [Other correction (current) drug therapy] Onset: 02-28-2024 02-28-2024 Episodic Other fractures (4 sources) Other specified [...] EXPOS COVID-19] Onset: 01-16-2022 Urinary tract infections (20 sources) Urinary tract infection, site not specified; Translations: [Recurrent urinary tract infection] Onset: 02-01-2022 12-11-2023 Episodic Results Test Name Value Interpretation Reference Range Facility [facility] HEMOGLOBIN A1Con 025 Glucose [Mass/Vol] 123 mg/dL [facility] HbA1c (Bld) [Mass fraction] 5.9 % 4.5 - 6.2 % [facility] Comment on above: ADA RECOMMENDED LIMI T 4.0 - 6.0 ADA THERAPEUTIC TARGET < 7.0 ACTION SUGGESTED > 7.0 [facility] MM TOMOSYNTHESIS SCREENING B Ion 05-06-2024 [place] [address] Mammography Report Signed Patient: DOUG REED MR#: [id number] : 1955 Acct:[id number] Age/Sex: 68 / F ADM Date: 05/06/24 Loc: MAMMO Attending Dr: Romulo Alvarez M.D. Ordering Physician: Romulo Alvarez M.D. Results: Date of Service: 05/06/24 Follow Up: Procedure(s): MM tomosynthesis screening BI Accession Number(s): [id number] cc: Romulo Alvarez M.D. Patient Name: DOUG REED MR#: [id number] : 1955 Exam Date: 05/06/2024 Ordering Doctor: DR Romulo Alvarez . RADIOLOGY REPORT PROCEDURE: MM TOMOSYNTHESIS SCREENING BI COMPARISON: MG MAMM SCREEN 3D RODERICK CAD, 01/09/2022. MM TOMOSYNTHESIS SCREENING BI, 03/26/2023. INDICATIONS: Screening Calculator Name NCI Breast Cancer Risk Assessment Tool 5 Year Breast Cancer Risk 1.40% Lifetime Breast Cancer Risk 4.10% Personal Breast Cancer No Personal Ovarian Cancer No Treatments None Family Cancers None LOCATION: [facility] BREAST COMPOSITION: The breasts are almost entirely fatty. FINDINGS: DIAGNOSTIC CATEGORY 1--NEGATIVE. NO [...] BIOPSIED. Dictated by: Connie Licea MD on 05/06/2024 at 11:58 Approved by: Connie Licea MD on 05/06/2024 at 12:00 Dictated By: Connie Licea M.D. 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: [facility] Radiology, RadiologistMD - 05/06/2024 [place] [address] Mammography Report Signed Patient: DOUG REED MR#: [id number] : 1955 Acct:[id number] Age/Sex: 68 / F ADM Date: 05/06/24 Loc: MAMMO Attending Dr: Romulo Alvarez M.D. Ordering Physician: Romulo Alvarez M.D. Results: Date of Service: 05/06/24 Follow Up: Procedure(s): MM tomosynthesis screening BI Accession Number(s): [id number] cc: Romulo Alvarez M.D. Patient Name: DOUG REED MR#: [id number] : 1955 Exam Date: 05/06/2024 Ordering Doctor: DR Romulo Alvarez . RADIOLOGY REPORT PROCEDURE: MM TOMOSYNTHESIS SCREENING BI COMPARISON: MG MAMM SCREEN 3D RODERICK CAD, 01/09/2022. MM TOMOSYNTHESIS SCREENING BI, 03/26/2023. INDICATIONS: Screening Calculator Name NCI Breast Cancer Risk Assessment Tool 5 Year Breast Cancer Risk 1.40% Lifetime Breast Cancer Risk 4.10% Personal Breast Cancer No Personal Ovarian Cancer No Treatments None Family Cancers None LOCATION: [facility] BREAST COMPOSITION: The breasts are almost entirely fatty. FINDINGS: DIAGNOSTIC CATEGORY 1--NEGATIVE. NO [...] BIOPSIED. Dictated by: Connie Licea MD on 05/06/2024 at 11:58 Approved by: Connie Licea MD on 05/06/2024 at 12:00 Dictated By: Connie Licea M.D. 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: [facility] Study observation (narrative) [facility] MM TOMOSYNTHESIS SCREENING B IOrdered By: Radiologist Radiology on 05-06-2024 [facility] [employer] Work Phone: Erythrocyte distribution wid th Auto (RBC) [Ratio]on 01-11-2024 Erythrocyte distribution width (RBC) [Ratio] 12.7 % 11.0-15.0 [facility] Estimated glomerular filtrat ion rate (GFR) non- Americanon 01-11-2024 GFR/1.73 sq M.predicted among non-blacks MDRD (S/P/Bld) [Vol rate/Area] 39 mL/min/{1.73_m2} Low >=60 mL/min/1.73m 2 [facility] CBC WITH PLATELET NO DI FFERENTIALon 01-11-2024 Erythrocyte distribution width (RBC) [Ratio] 12.7 % 11.0 - 15.0 % [facility] Hematocrit (Bld) [Volume fraction] 41.0 % 36.0 - 48.0 % [facility] Hemoglobin (Bld) [Mass/Vol] 13.0 g/dL 12.0 - 16.0 g/dL [facility] MCH (RBC) [Entitic mass] 29.9 pg 26.7 - 34.0 pg [facility] MCHC (RBC) [Mass/Vol] 31.7 g/dL 29.9 - 35.2 g/dL [facility] MCV (RBC) [Entitic vol] 94.3 fL 81.0 - 99.0 fL [facility] Platelet mean volume (Bld) [Entitic vol] 10.5 fL 9.5 - 13.5 fL [facility] TBH PLT 270 [facility] RBC 4.35 [facility] WBC 5.2 [facility] Hematocrit Auto (Bld) [Volum e fraction]on 01-11-2024 Hematocrit (Bld) [Volume fraction] 41.0 % 36.0-48.0 [facility] Hemoglobin [Mass/volume] in Bloodon 01-11-2024 Hemoglobin (Bld) [Mass/Vol] 13.0 g/dL 12.0-16.0 [facility] Laboratory - Chemistry and C hemistry - challengeon 01-11-2024 Albumin [Mass/Vol] 3.5 g/dL 3.4-5.0 [facility] Calcium [Mass/Vol] 9.4 mg/dL 8.5-10.1 [facility] Chloride [Moles/Vol] 100 mmol/L 98-107 [facility] CO2 [Moles/Vol] 30.6 mmol/L 21.0-32.0 [facility] Creatinine [Mass/Vol] 1.34 mg/dL High 0.55-1.02 [facility] GFR/1.73 sq M.predicted MDRD (S/P/Bld) [Vol rate/Area] 47 mL/min/{1.73_m2} Low >=60 mL/min/1.73m 2 [facility] Glucose [Mass/Vol] 107 mg/dL High 74-106 [facility] Magnesium [Mass/Vol] 2.1 mg/dL 1.8-2.4 [facility] Potassium [Moles/Vol] 4.6 mmol/L 3.5-5.1 [facility] Sodium [Moles/Vol] 135 mmol/L Low 136-145 [facility] Urate [Mass/Vol] 4.6 mg/dL 2.6-6.0 [facility] Urea nitrogen [Mass/Vol] 24.0 mg/dL High 7.0-18.0 [facility] Urea nitrogen/Creatinine [Mass ratio] 17.9 mg/mg [facility] Bilirubin Ql (U) Negative NEGATIVE [facility] Glucose (U) [Mass/Vol] mg/dL Abnormal NEGATIVE [facility] Ketones Ql (U) Negative NEGATIVE [facility] pH (U) 7.0 [pH] 5.0-9.0 [facility] Specific gravity (U) [Rel density] 1.020 1.005-1.025 [facility] Urobilinogen Qn (U) 0.2 {Myriam'U}/dL 0.2-1.0 [facility] Laboratory - Specimen inform ationon 01-11-2024 Appearance (U) CLEAR CLEAR [facility] Color (U) YELLOW YELLOW [facility] Laboratory - Urinalysison Leukocyte esterase Test strip Ql (U) Negative NEGATIVE [facility] Mucus Ql (Urine sed) NONE SEEN NONE SEEN [facility] Nitrite Ql (U) Negative NEGATIVE [facility] Protein (U) [Mass/Vol] 15.2 mg/dL High <=11.9 [facility] Protein Ql (U) Negative NEG/TRACE [facility] Leukocytes [#/volume] correc rod for nucleated erythrocytes in Blood by Automated counon 01-11-2024 WBC corrected for nucl RBC Auto (Bld) [#/Vol] 5.2 10 3/uL 4.0-11.0 [facility] MCH Auto (RBC) [Entitic mass ]on 01-11-2024 MCH (RBC) [Entitic mass] 29.9 pg 26.7-34.0 [facility] MCHC Auto (RBC) [Mass/Vol]on 01-11-2024 MCHC (RBC) [Mass/Vol] 31.7 g/dL 29.9-35.2 [facility] MCV Auto (RBC) [Entitic vol] on 01-11-2024 MCV (RBC) [Entitic vol] 94.3 fL 81.0-99.0 [facility] No Panel Informationon 01-10 25-Hydroxy Vitamin D Total 58.3 ng/mL [facility] Comment on above: <20 ng/mL Vit D defi cient20-<30 ng/mL Vit D [id number] ng/mL Vit D sufficient>100 ng/mL Potential Toxicity Parathyroid Hormone (Intact) 36 pg/mL 15-65 [facility] Comment on above: Performed at: [address] [id number] Director: Rakesh Grace PhD, Phone: [phone] Phosphorus Level 3.8 mg/dL 2.6-4.7 [facility] Urine Bacteria NONE SEEN #/HPF NONE SEEN [facility] Urine Calcium Oxalate Crystals MODERATE [facility] Urine Occult Blood Negative NEGATIVE [facility] Urine Other Casts NONE SEEN #/LPF NONE [facility]EN [facility] Urine Other Crystals Seen #/HPF Abnormal None Seen [facility] Urine Random Creatinine 94.11 mg/dL 20.00-300.00 [facility] Urine RBC 0-2 #/HPF 0-2 [facility] Urine Squamous Epithelial Cells NONE SEEN #/LPF NONE/RARE [facility] Urine WBC 0-2 #/HPF Abnormal NONE SEEN [facility] Platelet mean volume Auto (B ld) [Entitic vol]on 01-11-2024 Platelet mean volume (Bld) [Entitic vol] 10.5 fL 9.5-13.5 [facility] Platelets Auto (Bld) [#/Vol] on 01-11-2024 Platelets (Bld) [#/Vol] 270 10 3/uL 150-450 [facility] RBC Auto (Bld) [#/Vol]on RBC (Bld) [#/Vol] 4.35 10 6/uL 4.20-5.40 [facility] Serum or plasma anion gap de terminationon 01-11-2024 Anion gap [Moles/Vol] 9.0 mmol/L [facility] Urine protein/creatinine rat ioon 01-11-2024 Protein/Creatinine (U) [Ratio] 0.16 [facility] Bacteria identified Cx Nom ( U)on 09-20-2023 Service comment (Unsp spec) [Interp] MULTIPLE SPECIES PRESENT. PROBABLE COLLECTION CONTAMINATION. SUGGEST REPEAT SPECIMEN. [facility] BASIC METABOLIC PANLon 09-18 Anion gap [Moles/Vol] 7 mmol/L Normal 5-15 [facility] Comment on above: Performed By: #### C SELAM SALDANA, HA1C #### [facility] ([id number]) [address] [place] [address] Calcium [Mass/Vol] 9.7 mg/dL Normal 8.5-10.5 [facility] Comment on above: Performed By: #### C SELAM SALDANA, HA1C #### [facility] ([id number]) [address] [place] [address] Chloride [Moles/Vol] 99 mmol/L Normal 98-109 [facility] Comment on above: Performed By: #### C SELAM SALDANA, HA1C #### [facility] ([id number]) [address] [place] [address] CO2 [Moles/Vol] 30 mmol/L Normal 22-32 [facility] Comment on above: Performed By: #### C SELAM SALDANA, HA1C #### [facility] ([id number]) [address] [address] [place] [address] Creatinine [Mass/Vol] 1.09 mg/dL High 0.40-1.00 [facility] Comment on above: Result Comment: METH OD TRACEABLE TO IDMS STANDARD Performed By: #### C SELAM SALDANA, HA1C #### [facility] ([id number]) [address], [address] [place] [address] GFR/1.73 sq M.predicted among non-blacks MDRD (S/P/Bld) [Vol rate/Area] 55 mL/min/{1.73_m2} Low >59 [facility] Comment on above: Result Comment: Reported eGFR is based on the CKD-EPI 2020 equation that does not use a race coefficient. Performed By: #### C SELAM SALDANA, HA1C #### [facility] ([id number]) [address], [address] [place] [address] Glucose [Mass/Vol] 109 mg/dL High 65-99 [facility] Comment on above: Performed By: #### C SHANA BMP, HA1C #### [facility] ([id number]) [address] [address] [place] [address] Potassium [Moles/Vol] 4.1 mmol/L Normal 3.5-5.0 [facility] Comment on above: Performed By: #### C SHANA, BMP, HA1C #### [facility] ([id number]) [address] [address] [place] [address] Sodium [Moles/Vol] 136 mmol/L Normal 134-146 [facility] Comment on above: Performed By: #### C BCA, BMP, HA1C #### [facility] ([id number]) [address], [address] [place] [address] Urea nitrogen [Mass/Vol] 26 mg/dL Normal 5-27 [facility] Comment on above: Performed By: #### C SELAM SALDANA HA1C #### [facility] ([id number]) [address] [facility] [place] [address] Basic Metabolic Panelon 09-07 Anion gap [Moles/Vol] 7 mmol/L 5 - 15 mmol/L [facility] Calcium [Mass/Vol] 9.7 mg/dL 8.5 - 10. 5 mg/dL [facility] Chloride [Moles/Vol] 99 mmol/L 98 - 109 mmol/L [facility] CO2 [Moles/Vol] 30 mmol/L 22 - 32 mmol/L [facility] Creatinine [Mass/Vol] 1.09 mg/dL High 0.40 - 1.00 mg/dL [facility] Comment on above: METHOD TRACEABLE TO [facility] STANDARD eGFR (CKD-EPI)non-race dependent 55 Low - PINF [facility] Comment on above: Reported eGFR is based on the CKD-EPI 2020 equation that does not use a race coefficient. Glucose [Mass/Vol] 109 mg/dL High 65 - 99 mg/dL [facility] Interpretation and review of laboratory results Abnormal [facility] Potassium [Moles/Vol] 4.1 mmol/L 3.5 - 5.0 mmol/L [facility] Sodium [Moles/Vol] 136 mmol/L 134 - 146 mmol/L [facility] Urea nitrogen [Mass/Vol] 26 mg/dL 5 - 27 mg/dL [facility] CBC AND AUTO DIFFon 09-19-19 24 ABSOLUTE BASOPHIL 0.1 X10E9/L Normal 0.0-0.2 [facility] Comment on above: Performed By: #### C SELAM SALDANA HA1C #### [facility] ([id number]) [address] [place] [address] ABSOLUTE NEUTROPHIL 3.1 X10E9/L Normal 1.5-6.6 [facility] Comment on above: Performed By: #### C SELAM SALDANA, HA1C #### [facility] ([id number]) [address] [place] [address] Basophils/100 WBC (Bld) 1.1 % Normal [facility] Comment on above: Performed By: #### C SHANA BMP, HA1C #### [facility] ([id number]) [address] [facility] [address] [place] [address] Eosinophils (Bld) [#/Vol] 0.2 10*3/uL Normal 0.0-0.4 [facility] Comment on above: Performed By: #### C SELAM SALDANA, HA1C #### [facility] ([id number]) [address] [facility] [address] [place] [address] Eosinophils/100 WBC (Bld) 3.6 % Normal [facility] Comment on above: Performed By: #### C SELAM SALDANA, HA1C #### [facility] ([id number]) [address] [facility] [address] [place] [address] Erythrocyte distribution width (RBC) [Ratio] 13.3 % Normal 11.5-15.0 [facility] Comment on above: Performed By: #### C SELAM SALDANA, HA1C #### [facility] ([id number]) [address] [facility] [address] [place] [address] Hematocrit (Bld) [Volume fraction] 36.8 % Normal 35-47 [facility] Comment on above: Performed By: #### C SELAM SALDANA, HA1C #### [facility] ([id number]) [address] [address] [place] [address] Hemoglobin (Bld) [Mass/Vol] 12.0 g/dL Normal 11.7-15.5 [facility] Comment on above: Performed By: #### C SHANA, BMP, HA1C #### [facility] ([id number]) [address] [place] [address] Lymphocytes (Bld) [#/Vol] 1.5 10*3/uL Normal 1.0-3.5 [facility] Comment on above: Performed By: #### SELAM Crandall BCA, HA1C #### [facility] ([id number]) [address], [address] [place] [address] Lymphocytes/100 WBC (Bld) 26.2 % Normal [facility] Comment on above: Performed By: #### SELAM Crandall BCA, HA1C #### [facility] ([id number]) [address], [address] [place] [address] MCH (RBC) [Entitic mass] 30.0 pg Normal 27-34 [facility] Comment on above: Performed By: #### SELAM Crandall BCA, HA1C #### [facility] ([id number]) [address], [address] [place] [address] MCHC (RBC) [Mass/Vol] 32.6 g/dL Normal 32-36 [facility] Comment on above: Performed By: #### SELAM Crandall BCA, HA1C #### [facility] ([id number]) [address], [address] [place] [address] MCV (RBC) [Entitic vol] 92 fL Normal 80-100 [facility] Comment on above: Performed By: #### SELAM Crandall BCA, HA1C #### [facility] ([id number]) [address], [address] [place] [address] Monocytes (Bld) [#/Vol] 0.7 10*3/uL Normal 0-0.9 [facility] Comment on above: Performed By: #### SELAM Crandall BCA, HA1C #### [facility] ([id number]) [address], [address] [place] [address] Monocytes/100 WBC (Bld) 13.1 % Normal [facility] Comment on above: Performed By: #### SELAM Crandall BCA, HA1C #### [facility] ([id number]) [address] [address] [place] [address] Neutrophils/100 WBC (Bld) 56.0 % Normal [facility] Comment on above: Performed By: #### SELAM Crandall BCA, HA1C #### [facility] ([id number]) [address] [address] Platelet mean volume (Bld) [Entitic vol] 9.6 fL Normal 7-12 [facility] Comment on above: Performed By: #### SELAM Crandall BCA, HA1C #### [facility] ([id number]) [address] [address] Platelets (Bld) [#/Vol] 274 10*3/uL Normal 150-450 [facility] Comment on above: Performed By: #### SELAM Crandall BCA, HA1C #### [facility] ([id number]) [address] [address] RBC COUNT 4.00 X10E12/L Normal 3.80-5.20 [facility] Comment on above: Performed By: #### SELAM Crandall BCA, HA1C #### [facility] ([id number]) [address] [address] WBC (Bld) [#/Vol] 5.6 10*3/uL Normal 4.0-11.0 [facility] Comment on above: Performed By: #### SELAM Crandall BCA, HA1C #### [facility] ([id number]) [address] [address] CBC auto differentialon 09-07-2023 Basophils (Bld) [#/Vol] 0.1 10*3/uL [facility] Basophils/100 WBC (Bld) 1.1 % [facility] Eosinophils (Bld) [#/Vol] 0.2 10*3/uL [facility] Eosinophils/100 WBC (Bld) 3.6 % [facility] Erythrocyte distribution width (RBC) [Ratio] 13.3 % 11.5 - 15.0 % [facility] Hematocrit (Bld) [Volume fraction] 36.8 % 35 - 47 % [facility] Hemoglobin (Bld) [Mass/Vol] 12.0 g/dL 11.7 - 15.5 g/dL [facility] Lymphocytes (Bld) [#/Vol] 1.5 10*3/uL [facility] Lymphocytes/100 WBC (Bld) 26.2 % [facility] MCH (RBC) [Entitic mass] 30.0 pg 27 - 34 pg [facility] MCHC (RBC) [Mass/Vol] 32.6 g/dL 32 - 36 g/dL [facility] MCV (RBC) [Entitic vol] 92 fL 80 - 100 fL [facility] Monocytes (Bld) [#/Vol] 0.7 10*3/uL [facility] Monocytes/100 WBC (Bld) 13.1 % [facility] Neutrophils (Bld) [#/Vol] 3.1 10*3/uL [facility] Neutrophils/100 WBC (Bld) 56.0 % [facility] Platelet mean volume (Bld) [Entitic vol] 9.6 fL 7 - 12 fL [facility] Platelets (Bld) [#/Vol] 274 10*3/uL [facility] RBC (Bld) [#/Vol] 4.00 10*6/uL [facility] WBC corrected for nucl RBC Auto (Bld) [#/Vol] 5.6 [facility] ECG 12 leadon 09-19-2023 TRACEMASTERVUE [facility] HGB A1C (GLYCO-HGB)on 2023 Glucose [Mass/Vol] 131 mg/dL Normal [facility] Comment on above: Performed By: #### C BCA, BMP, HA1C #### [facility] ([id number]) [address] [facility] [facility] [address] [place] [address] HbA1c (Bld) [Mass fraction] 6.2 % High 4.4-5.6 [facility] Comment on above: Result Comment: NOTE ADA Guidelines Result HgbA1c Normal : less than 5.7 % Prediabetes : 5.7 % to 6.4 % Diabetes : > 6.4 % Use with caution in patients with abnormal hemoglobin variants as the half-life of red blood cells and in vivo glycation rates are affected. Performed By: #### C BCA, BMP, HA1C #### [facility] ([id number]) [address] [place] [address] Hemoglobin A1con 09-19-2023 Average glucose Estimated from glycated hemoglobin (Bld) [Mass/Vol] 131 mg/dL [facility] HbA1c (Bld) [Mass fraction] 6.2 % High 4.4 - 5.6 % [facility] Comment on above: NOTE ADA Guidelines Result HgbA1c Normal : less than 5.7 % Prediabetes : 5.7 % to 6.4 % Diabetes : > 6.4 % Use with caution in patients with abnormal hemoglobin variants as the half-life of red blood cells and in vivo glycation rates are affected. Interpretation and review of laboratory results Abnormal [facility] URINALYSISon 09-19-2023 Bilirubin Ql (U) Negative Normal NEG [facility] Comment on above: Performed By: #### U A #### [facility] ([id number]) [address] [place] [address] BLOOD/HGB Negative Normal NEG [facility] Comment on above: Performed By: #### U A #### [facility] ([id number]) [address] [place] [address] Color (U) YELLOW Normal YELLOW [facility] Comment on above: Performed By: #### U A #### [facility] ([id number]) [address] [place] [address] Glucose Ql (U) Negative Normal NEG [facility] Comment on above: Performed By: #### U A #### [facility] ([id number]) [address] [place] [address] Hyaline casts LM Ql (Urine sed) 1 /lpf Normal 0-2 [facility] Comment on above: Performed By: #### U A #### [facility] ([id number]) [address] [place] [address] Ketones Ql (U) Negative Normal NEG [facility] Comment on above: Performed By: #### U A #### [facility] ([id number]) [address] [place] [address] Leukocyte esterase Test strip Ql (U) Large Abnormal NEG [facility] Comment on above: Performed By: #### U A #### [facility] ([id number]) [address] [place] [address] MUCOUS PRESENT Abnormal NONE [facility] Comment on above: Performed By: #### U A #### [facility] ([id number]) [address] [place] [address] Nitrite Ql (U) Negative Normal NEG [facility] Comment on above: Performed By: #### U A #### [facility] ([id number]) [address] [place] [address] pH (U) 8.0 [pH] Normal 5.0-8.5 [facility] Comment on above: Performed By: #### U A #### [facility] ([id number]) [address] [place] [address] Protein Ql (U) Trace Abnormal NEG [facility] Comment on above: Performed By: #### U A #### [facility] ([id number]) [address] [place] [address] R.B.CELLS 4 /hpf Normal 0-5 [facility] Comment on above: Performed By: #### U A #### [facility] ([id number]) [address] [place] [address] Specific gravity (U) [Rel density] 1.015 Normal 1.003-1.035 [facility] Comment on above: Performed By: #### U A #### [facility] ([id number]) [address] [place] [address] SQUAMOUS EPITHELIUM 2 /hpf Normal 0-5 [facility] Comment on above: Performed By: #### U A #### [facility] ([id number]) [address] [place] [address] TRANSITIONAL EPITH <1 High 0 [facility] Comment on above: Performed By: #### U A #### [facility] ([id number]) [address] [place] [address] TURBIDITY HAZY Abnormal CLEAR [facility] Comment on above: Performed By: #### U A #### [facility] ([id number]) [address] [place] [address] Urobilinogen (U) [Mass/Vol] mg/dL Normal <1.1 [facility] Comment on above: Performed By: #### U A #### [facility] ([id number]) [address] [place] [address] W.B.CELLS 60 /hpf High 0-5 [facility] Comment on above: Performed By: #### U A #### [facility] ([id number]) [address] [place] [address] URINE CULTUREon 09-19-2023 Bacteria identified Cx Nom (U) CULTURE RESULTS MULTIPLE SPECIES PRESENT. PROBABLE COLLECTION CONTAMINATION. SUGGEST REPEAT SPECIMEN. Normal [facility] Comment on above: Performed By: #### 6 30-4 #### [facility] ([id number]) [address] [place] [address] Urinalysison 09-19-2023 Bilirubin Ql (U) Negative Negative^Ne g ative [facility] Color (U) YELLOW YELLOW^YELLO W [facility] Epithelial cells Auto (Urine sed) [#/Area] 2 [facility] Epithelial cells.non-squamous LM.LPF (Urine sed) [#/Area] High 0 /hpf [facility] Glucose (U) [Mass/Vol] Negative Negative^Neg ative mg/dL [facility] Hemoglobin Auto test strip Ql (U) Negative Negative^Neg ative [facility] Hyaline casts (Urine sed) [#/Area] 1 /[LPF] [facility] Interpretation and review of laboratory results Abnormal [facility] Ketones (U) [Mass/Vol] Negative Negative^Neg ative mg/dL [facility] Leukocyte esterase Auto test strip Ql (U) Large Abnormal Negative^Neg ative [facility] Mucus Ql (Urine sed) PRESENT Abnormal NONE^NONE [facility] Nitrite Auto test strip Ql (U) Negative Negative^Neg ative [facility] pH (U) 8.0 [pH] 5.0 - 8.5 [facility] Protein (U) [Mass/Vol] Trace Abnormal Negative^Neg ative mg/dL [facility] RBC Auto (Urine sed) [#/Area] 4 [facility] Specific gravity Refractometry automated (U) [Rel density] 1.015 1.003 - 1.035 [facility] Turbidity Ql (U) HAZY Abnormal CLEAR^CLEAR [facility] Urobilinogen Qn (U) NINF [facility] WBC Auto (Urine sed) [#/Area] 60 High [facility] XR CHEST 2 VWSon 09-19-2023 XR CHEST 2 VWS XR CHEST 2 VWS XR CHEST 2 VWS INDICATION: Preop examination; Hypertension, unspecified type; Type 2 diabetes mellitus without complication, without long-term current use of insulin ([facility]); Urinary frequency; Former smoker; Osteoarthritis of left hip, unspecified osteoarthritis type. FINDINGS: Cardiac silhouette is normal in size. Trachea midline. No focal pulmonary consolidation. No pleural effusion. No pneumothorax. IMPRESSION: 1. Unremarkable chest radiographs. 1 Finalized by Sincere Charles MD on 09/19/2023 11:47 PM Normal [facility] XR Chest PA and Lateralon XR CHEST 2 VWS INDICATION: Preop examination; Hypertension, unspecified type; Type 2 diabetes mellitus without complication, without long-term current use of insulin ([facility]); Urinary frequency; Former smoker; Osteoarthritis of left hip, unspecified osteoarthritis type. FINDINGS: Cardiac silhouette is normal in size. Trachea midline. No focal pulmonary consolidation. No pleural effusion. No pneumothorax. IMPRESSION: 1. Unremarkable chest radiographs. 1 Finalized by Sincere Charles MD on 09/19/2023 11:47 PM SECTRASincere Cole MD - 09/19/2023 XR CHEST 2 VWS INDICATION: Preop examination; Hypertension, unspecified type; Type 2 diabetes mellitus without complication, without long-term current use of insulin ([facility]); Urinary frequency; Former smoker; Osteoarthritis of left hip, unspecified osteoarthritis type. FINDINGS: Cardiac silhouette is normal in size. Trachea midline. No focal pulmonary consolidation. No pleural effusion. No pneumothorax. IMPRESSION: 1. Unremarkable chest radiographs. 1 Finalized by Sincere Charles MD on 09/19/2023 11:47 PM [facility] Radiology Study observation (narrative) [facility] XR Chest PA and LateralOrder ed By: Sincere Charles on 09-19-2023 [facility] Work Phone: PTH INTACTon 09-01-2022 PTH, Intact 26 pg/mL Normal 15-65 [facility] Comment on above: Performed By: #### P THINT #### [facility] [address] [place] [address] Dr. Nunu Borges CBC AUTO DIFFon 08-31-2022 BASO # 0.1 103/ul Normal 0.0-0.1 [facility] Comment on above: Performed By: #### U TIFFANIE, MG, RENAL #### [facility] [address] [place] [address] Dr. Nunu Borges Basophils/100 WBC (Bld) 1.2 % Normal 0.2-2.0 [facility] Comment on above: Performed By: #### U TIFFANIE, MG, RENAL #### [facility] [address] [place] [address] Dr. Nunu Borges EO # 0.1 103/ul Normal 0.0-0.7 [facility] Comment on above: Performed By: #### U TIFFANIE, MG, RENAL #### [facility] [address] [place] [address] Dr. Nunu Borges Eosinophils/100 WBC (Bld) 2.2 % Normal 0.9-7.0 [facility] Comment on above: Performed By: #### U TIFFANIE, MG, RENAL #### [facility] [address] [place] [address] Dr. Nunu Borges Erythrocyte distribution width (RBC) [Ratio] 12.7 % Normal 11.0-15.0 [facility] Comment on above: Performed By: #### U TIFFANIE, MG, RENAL #### [facility] [address] [place] [address] Dr. Nunu Borges Hematocrit (Bld) [Volume fraction] 38.0 % Normal 36.0-48.0 [facility] Comment on above: Performed By: #### U TIFFANIE, MG, RENAL #### [facility] [address] [place] [address] Dr. Nunu Borges Hemoglobin (Bld) [Mass/Vol] 12.5 g/dL Normal 12.0-16.0 [facility] Comment on above: Performed By: #### U TIFFANIE, MG, RENAL #### [facility] [address] [address] [address] Nunu Borges IG # 0.02 10e3/ul Normal 0.00-0.03 [facility] Comment on above: Performed By: #### U TIFFANIE, MG, RENAL #### [facility] [address] [address] [address] Nunu Borges IG % 0.3 % Normal 0.0-0.5 [facility] Comment on above: Performed By: #### U TIFFANIE, MG, RENAL #### [facility] [address] [address] [address] Nunu Borges LYMPH # 1.8 103/ul Normal 1.2-3.8 [facility] Comment on above: Performed By: #### U TIFFANIE, MG, RENAL #### [facility] [address] [address] [address] Nunu Borges Lymphocytes/100 WBC (Bld) 30.7 % Normal 20.5-60.0 [facility] Comment on above: Performed By: #### U TIFFANIE, MG, RENAL #### [facility] [address] [address] [address] Nunu Borges MANUAL DIFF REQ NO Normal [facility] Comment on above: Performed By: #### U TIFFANIE, MG, RENAL #### [facility] [address] [address] [address] Nunu Borges MCH (RBC) [Entitic mass] 29.8 pg Normal 26.7-34.0 [facility] Comment on above: Performed By: #### U TIFFANIE, MG, RENAL #### [facility] [address] [address] [address] Nunu Borges MCHC (RBC) [Mass/Vol] 32.9 g/dL Normal 29.9-35.2 [facility] Comment on above: Performed By: #### U TIFFANIE, MG, RENAL #### [facility] [address] [address] [address] Nunu Borges MCV (RBC) [Entitic vol] 90.5 fL Normal 81.0-99.0 [facility] Comment on above: Performed By: #### U TIFFANIE, MG, RENAL #### [facility] [address] [place] [address] Dr. Nunu Borges MONO # 0.7 103/ul Normal 0.3-0.8 [facility] Comment on above: Performed By: #### U TIFFANIE, MG, RENAL #### [facility] [address] [place] [address] Dr. Nunu Borges Monocytes/100 WBC (Bld) 12.4 % Critically high 1.7-12.0 [facility] Comment on above: Performed By: #### U TIFFANIE, MG, RENAL #### [facility] [address] [place] [address] Dr. Nunu Borges NEUT # 3.1 103/ul Normal 1.4-6.5 [facility] Comment on above: Performed By: #### U TIFFANIE, MG, RENAL #### [facility] [address] [place] [address] Dr. Nunu Borges Neutrophils/100 WBC (Bld) 53.2 % Normal 43.0-75.0 [facility] Comment on above: Performed By: #### U TIFFANIE, MG, RENAL #### [facility] [address] [place] [address] Dr. Nunu Borges Platelet mean volume (Bld) [Entitic vol] 11.3 fL Normal 9.5-13.5 [facility] Comment on above: Performed By: #### U TIFFANIE, MG, RENAL #### [facility] [address] [place] [address] Dr. Nunu Borges PLT 284 103/ul Normal 150-450 [facility] Comment on above: Performed By: #### U TIFFANIE, MG, RENAL #### [facility] [address] [place] [address] Dr. Nunu Borges RBC 4.20 106/ul Normal 4.20-5.40 [facility] Comment on above: Performed By: #### U TIFFANIE, MG, RENAL #### [facility] [address] [place] [address] Dr. Nunu Borges WBC 5.9 103/ul Normal 4.0-11.0 [facility] Comment on above: Performed By: #### U TIFFANIE, MG, RENAL #### [facility] [address] [address] [address] Nunu Borges FERRITINon 08-31-2022 Ferritin [Mass/Vol] 66.0 ng/mL Normal 8.0-252.0 [facility] Comment on above: Performed By: #### U TIFFANIE, MG, RENAL #### [facility] [address] [address] [address] Nunu Borges GLYCOHEMOGLOBIN A1Con 2022 ADA RECOMMENDATION SEE BELOW Normal [facility] Comment on above: Result Comment: ADA RECOMMENDED LIMIT 4.0 - 6.0 ADA THERAPEUTIC TARGET < 7.0 ACTION SUGGESTED > 7.0 Performed By: #### U TIFFANIE, MG, RENAL #### [facility] [address] [address] [address] Nunu Borges Glucose [Mass/Vol] 134 mg/dL Normal [facility] Comment on above: Performed By: #### U TIFFANIE, MG, RENAL #### [facility] [address] [address] [address] Nunu Borges HbA1c (Bld) [Mass fraction] 6.3 % Critically high 4.5-6.2 [facility] Comment on above: Performed By: #### U TIFFANIE, MG, RENAL #### [facility] [address] [address] [address] Nunu Borges IRON AND TIBCon 08-31-2022 % SATURATION 25.9 % Normal [facility] Comment on above: Performed By: #### U TIFFANIE, MG, RENAL #### [facility] [address] [address] [address] Nunu Borges Iron [Mass/Vol] 90.0 ug/dL Normal 50.0-170.0 [facility] Comment on above: Performed By: #### U TIFFANIE, MG, RENAL #### [facility] [address] [address] [address] Nunu Borges TIBC DIRECT 348.0 ug/dL Normal 250.0-450.0 [facility] Comment on above: Performed By: #### U TIFFANIE, MG, RENAL #### [facility] [address] [place], [place] [address] Dr. Nuun Borges LIPID PROFILEon 08-31-2022 CHOL-HDL RATIO NORM SEE BELOW Normal [facility] Comment on above: Result Comment: 3.3 - 4.4 LOW RISK 4.4 - 7.1 AVERAGE RISK 7.1 - 11.0 MODERATE RISK >11.0 HIGH RISK Performed By: #### U TIFFANIE, MG, RENAL #### [facility] [address] [place], [place] [address] Dr. Nunu Borges Cholesterol [Mass/Vol] 152 mg/dL Normal <=200 [facility] Comment on above: Performed By: #### U TIFFANIE, MG, RENAL #### [facility] [address] [address] [address] Nunu Borges Cholesterol in HDL [Mass/Vol] 77 mg/dL Critically high 40-60 [facility] Comment on above: Performed By: #### U TIFFANIE, MG, RENAL #### [facility] [address] [place], [place] [address] Dr. Nunu Borges Cholesterol in LDL [Mass/Vol] 63.2 mg/dL Normal [facility] Comment on above: Performed By: #### U TIFFANIE, MG, RENAL #### [facility] [address] [place], [place] [address] Dr. Nunu Borges Cholesterol.total/C holesterol in HDL [Mass ratio] 2.0 {ratio} Normal [facility] Comment on above: Performed By: #### U TIFFANIE, MG, RENAL #### [facility] [address] [place], [place] [address] Dr. Nunu Borges HDL NORMAL > or = 60 mg/dl - LOW CARDIOVASCULAR RISK <40 mg/dl - HIGH CARDIOVASCULAR RISK Normal [facility] Comment on above: Performed By: #### U TIFFANIE, MG, RENAL #### [facility] [address] [place], [place] [address] Dr. Nunu Borges LDL CALC NORMAL SEE BELOW Normal [facility] Comment on above: Result Comment: <100 mg/dl OPTIMAL 100 - 129 mg/dl NEAR OR ABOVE OPTIMAL 130 - 159 mg/dl BORDERLINE HIGH 160 - 189 mg/dl HIGH >190 mg/dl VERY HIGH Performed By: #### U TIFFANIE, MG, RENAL #### [facility] [address] [address] [address] Nunu Borges Triglyceride [Mass/Vol] 59 mg/dL Normal <=150 [facility] Comment on above: Performed By: #### U TIFFANIE, MG, RENAL #### [facility] [address] [address] [address] Nunu Borges VLDL CALC 11.8 mg/dL Normal [facility] Comment on above: Performed By: #### U TIFFANIE, MG, RENAL #### [facility] [address] [address] [address] Nunu Borges LIVER PROFILEon 08-31-2022 Albumin/Globulin [Mass ratio] 1.1 {ratio} Normal [facility] Comment on above: Performed By: #### U TIFFANIE, MG, RENAL #### [facility] [address] [place] [address] Dr. Nunu Borges ALP [Catalytic activity/Vol] 129 U/L Critically high 46-116 [facility] Comment on above: Performed By: #### U TIFFANIE, MG, RENAL #### [facility] [address] [address] [address] Nunu Borges ALT [Catalytic activity/Vol] 32 U/L Normal 14-59 [facility] Comment on above: Performed By: #### U TIFFANIE, MG, RENAL #### [facility] [address] [place] [address] Dr. Nunu Borges AST [Catalytic activity/Vol] 20 U/L Normal 15-37 [facility] Comment on above: Performed By: #### U TIFFANIE, MG, RENAL #### [facility] [address] [address] [address] Nunu Borges BILI, CONJUGATED 0.2 mg/dL Normal 0.0-0.2 [facility] Comment on above: Performed By: #### U TIFFANIE, MG, RENAL #### [facility] [address] [place] [address] Dr. Nunu Borges Bilirubin [Mass/Vol] 0.8 mg/dL Normal 0.2-1.0 [facility] Comment on above: Performed By: #### U TIFFANIE, MG, RENAL #### [facility] [address] [place] [address] Dr. Nunu Borges Globulin (S) [Mass/Vol] 3.6 g/dL Normal [facility] Comment on above: Performed By: #### U TIFFANIE, MG, RENAL #### [facility] [address] [place] [address] Dr. Nunu Borges Protein [Mass/Vol] 7.5 g/dL Normal 6.4-8.2 [facility] Comment on above: Performed By: #### U TIFFANIE, MG, RENAL #### [facility] [address] [place] [address] Dr. Nunu Borges MAGNESIUMon 08-31-2022 Magnesium [Mass/Vol] 1.8 mg/dL Normal 1.8-2.4 [facility] Comment on above: Performed By: #### U TIFFANIE, MG, RENAL #### [facility] [address] [place] [address] Dr. Nunu Borges MICROALBUMIN, RAND URon 08-08 mALB <1.3 Normal <=30.0 [facility] Comment on above: Performed By: #### U TIFFANIE, MG, RENAL #### [facility] [address] [place] [address] Dr. Nunu Borges PROF CHEM 8 (BAS METB)on Anion gap [Moles/Vol] 14.3 mmol/L Normal [facility] Comment on above: Performed By: #### U TIFFANIE, MG, RENAL #### [facility] [address] [place] [address] Dr. Nunu Borges CO2 [Moles/Vol] 27.7 mmol/L Normal 21.0-32.0 [facility] Comment on above: Performed By: #### U TIFFANIE, MG, RENAL #### [facility] [address] [place] [address] Dr. Nunu Borges Glucose [Mass/Vol] 119 mg/dL Critically high 74-106 [facility] Comment on above: Performed By: #### U TIFFANIE, MG, RENAL #### [facility] [address] [address] [address] Nunu Borges Urea nitrogen/Creatinine [Mass ratio] 22.7 mg/mg Normal [facility] Comment on above: Performed By: #### U TIFFANIE, MG, RENAL #### [facility] [address] [address] [address] Nunu Borges RENAL FUNCTION PANELon 08-31 Albumin [Mass/Vol] 3.9 g/dL Normal 3.4-5.0 [facility] Comment on above: Performed By: #### U TIFFANIE, MG, RENAL #### [facility] [address] [address] [address] Nunu Borges Calcium [Mass/Vol] 9.7 mg/dL Normal 8.5-10.1 [facility] Comment on above: Performed By: #### U TIFFANIE, MG, RENAL #### [facility] [address] [address] [address] Nunu Borges Chloride [Moles/Vol] 99 mmol/L Normal 98-107 [facility] Comment on above: Performed By: #### U TIFFANIE, MG, RENAL #### [facility] [address] [address] [address] Nunu Borges CO2 [Moles/Vol] 28.0 mmol/L Normal 21.0-32.0 [facility] Comment on above: Performed By: #### U TIFFANIE, MG, RENAL #### [facility] [address] [address] [address] Nunu Borges Creatinine [Mass/Vol] 1.32 mg/dL Critically high 0.55-1.02 [facility] Comment on above: Performed By: #### U TIFFANIE, MG, RENAL #### [facility] [address] [address] [address] Nunu Borges EGFR-AF PARAGUAYAN 49 mL/min/1.73m2 Critically low >=60 [facility] Comment on above: Performed By: #### U TIFFANIE, MG, RENAL #### [facility] [address] [address] [address] Nunu Borges EGFR-NON AF PARAGUAYAN 40 mL/min/1.73m2 Critically low >=60 [facility] Comment on above: Performed By: #### U TIFFANIE, MG, RENAL #### [facility] [address] [address] [address] Nunu Borges Glucose [Mass/Vol] 118 mg/dL Critically high 74-106 [facility] Comment on above: Performed By: #### U TIFFANIE, MG, RENAL #### [facility] [address] [place] [address] Dr. Nunu Borges Phosphate [Mass/Vol] 3.6 mg/dL Normal 2.6-4.7 [facility] Comment on above: Performed By: #### U TIFFANIE, MG, RENAL #### [facility] [address] [place] [address] Dr. Nunu Borges Potassium [Moles/Vol] 4.0 mmol/L Normal 3.5-5.1 [facility] Comment on above: Performed By: #### U TIFFANIE, MG, RENAL #### [facility] [address] [place] [address] Dr. Nunu Borges Sodium [Moles/Vol] 137 mmol/L Normal 136-145 [facility] Comment on above: Performed By: #### U TIFFANIE, MG, RENAL #### [facility] [address] [place] [address] Dr. Nunu Borges Urea nitrogen [Mass/Vol] 30.0 mg/dL Critically high 7.0-18.0 [facility] Comment on above: Performed By: #### U TIFFANIE, MG, RENAL #### [facility] [address] [place] [address] Dr. Nunu Borges UA RANDOM W/MICROSCOPICon BACTERIA NONE SEEN Normal NONE SEEN [facility] Comment on above: Performed By: #### U AMIC #### [facility] [address] [place] [address] Dr. Nunu Borges Bilirubin Ql (U) Negative Normal NEGATIVE [facility] Comment on above: Performed By: #### U AMIC #### [facility] [address] [address] [address] Nunu Borges CAST NONE SEEN Normal NONE SEEN [facility] Comment on above: Performed By: #### U AMIC #### [facility] [address] [address] [address] Nunu Borges Clarity (U) CLEAR Normal CLEAR [facility] Comment on above: Performed By: #### U AMIC #### [facility] [address] [address] [address] Nunu Borges Color (U) LT. YELLOW Normal YELLOW [facility] Comment on above: Performed By: #### U AMIC #### [facility] [address] [place] [address] Dr. Nunu Borges Crystals LM Nom (Urine sed) NONE SEEN Normal NONE SEEN [facility] Comment on above: Performed By: #### U AMIC #### [facility] [address] [place] [address] Dr. Nunu Borges Epithelial cells LM Ql (Urine sed) FEW Abnormal NONE SEEN /RARE [facility] Comment on above: Performed By: #### U AMIC #### [facility] [address] [place] [address] Dr. Nunu Borges Glucose Ql (U) Negative Normal NEGATIVE [facility] Comment on above: Performed By: #### U AMIC #### [facility] [address] [address] [address] Nunu Borges Hemoglobin Ql (U) Negative Normal NEGATIVE [facility] Comment on above: Performed By: #### U AMIC #### [facility] [address] [address] [address] Nunu Borges Ketones Ql (U) Negative Normal NEGATIVE [facility] Comment on above: Performed By: #### U AMIC #### [facility] [address] [place] [address] Dr. Nunu Borges LEUKOCYTES TRACE Abnormal NEGATIVE [facility] Comment on above: Performed By: #### U AMIC #### [facility] [address] [address] [address] Nunu Borges MUCOUS NONE SEEN Normal NONE SEEN [facility] Comment on above: Performed By: #### U AMIC #### [facility] [address] [place] [address] Dr. Nunu Borges Nitrite Ql (U) Negative Normal NEGATIVE [facility] Comment on above: Performed By: #### U AMIC #### [facility] [address] [address] [address] Nunu Bogres pH (U) 6.0 [pH] Normal 5-9 [facility] Comment on above: Performed By: #### U AMIC #### [facility] [address] [place] [address] Dr. Nunu Borges RBC NONE SEEN Abnormal 0-2 [facility] Comment on above: Performed By: #### U AMIC #### [facility] [address] [place] [address] Dr. Nunu Borges SPEC GRAVITY 1.015 Normal 1.005-<=1.02 5 [facility] Comment on above: Performed By: #### U AMIC #### [facility] [address] [place] [address] Dr. Nunu Borges UA PROTEIN Negative Normal NEGATIVE/ TRACE [facility] Comment on above: Performed By: #### U AMIC #### [facility] [address] [place] [address] Dr. Nunu Borges Urobilinogen Qn (U) 0.2 {Myriam'U}/dL Normal 0.2 - 1. 0 [facility] Comment on above: Performed By: #### U AMIC #### [facility] [address] [place] [address] Dr. Nunu Borges WBC 2-5 Abnormal NONE SEEN [facility] Comment on above: Performed By: #### U AMIC #### [facility] [address] [place] [address] Dr. Nunu Borges URIC ACID SERUMon 08-31-2022 Urate [Mass/Vol] 6.3 mg/dL Critically high 2.6-6.0 [facility] Comment on above: Performed By: #### U TIFFANIE, MG, RENAL #### [facility] [address] [place] [address] Dr. Nunu Borges URINE T PROTEIN CREAT RATIOo n 08-31-2022 Protein (U) [Mass/Vol] 13.3 mg/dL Critically high <=12.0 [facility] Comment on above: Performed By: #### U TIFFANIE, MG, RENAL #### [facility] [address] [address] [address] Nunu Borges UR PROT CREAT RAT 0.11 Normal [facility] Comment on above: Performed By: #### U TIFFANIE, MG, RENAL #### [facility] [address] [place] [address] Dr. uNnu Borges URINE CREAT 121.05 mg/dL Normal 20.00-300.00 [facility] Comment on above: Performed By: #### U TIFFANIE, MG, RENAL #### [facility] [address] [place] [address] Dr. Nunu Borges VITAMIN D 25 OHon 08-31-2022 VIT D 25-OH 79.7 ng/mL Normal [facility] Comment on above: Performed By: #### U TIFFANIE, MG, RENAL #### [facility] [address] [place] [address] Dr. Nunu Borges VIT D RANGES SEE BELOW Normal [facility] Comment on above: Result Comment: <20 ng/mL Vit D deficient 20 - <30 ng/mL Vit D insufficient 30 - 100 ng/mL Vit D sufficient >100 ng/mL Potential Toxicity Performed By: #### U TIFFANIE, MG, RENAL #### [facility] [address] [place] [address] Dr. Nunu Borges POINT OF CARE GLUCOSEon 04- Glucose [Mass/Vol] 132 mg/dL Critically high 74-106 T [facility] Comment on above: Performed By: #### U AMIC #### [facility] [address] [place] [address] Dr. Nunu Borges PTH INTACTon 02-15-2022 PTH, Intact 36 pg/mL Normal 15-65 [facility] Comment on above: Performed By: #### U TIFFANIE, MG, RENAL #### [facility] [address] [place] [address] Dr. Nunu Borges UA RANDOM W/MICROSCOPICon BACTERIA TRACE Abnormal NONE SEEN [facility] Comment on above: Performed By: #### U AMIC #### [facility] [address] [place] [address] Dr. Nunu Borges Bilirubin Ql (U) Negative Normal NEGATIVE [facility] Comment on above: Performed By: #### U AMIC #### [facility] [address] [place] [address] Dr. Nunu Borges CAST NONE SEEN Normal NONE SEEN [facility] Comment on above: Performed By: #### U AMIC #### [facility] [address] [place] [address] Dr. Nunu Borges Clarity (U) CLEAR Normal CLEAR [facility] Comment on above: Performed By: #### U AMIC #### [facility] [address] [place] [address] Dr. Nunu Borges Color (U) LT. YELLOW Normal YELLOW [facility] Comment on above: Performed By: #### U AMIC #### [facility] [address] [place] [address] Dr. Nunu Borges Crystals LM Nom (Urine sed) NONE SEEN Normal NONE SEEN [facility] Comment on above: Performed By: #### U AMIC #### [facility] [address] [place] [address] Dr. Nunu Borges Epithelial cells LM Ql (Urine sed) FEW Abnormal NONE SEEN /RARE [facility] Comment on above: Performed By: #### U AMIC #### [facility] [address] [place] [address] Dr. Nunu Borges Glucose Ql (U) Negative Normal NEGATIVE The [facility] Comment on above: Performed By: #### U AMIC #### [facility] [address] [place] [address] Dr. Nunu Borges Hemoglobin Ql (U) Negative Normal NEGATIVE [facility] Comment on above: Performed By: #### U AMIC #### [facility] [address] [address] [address] Nunu Borges Ketones Ql (U) Negative Normal NEGATIVE [facility] Comment on above: Performed By: #### U AMIC #### [facility] [address] [address] [address] Nunu Borges LEUKOCYTES SMALL Abnormal NEGATIVE [facility] Comment on above: Performed By: #### U AMIC #### [facility] [address] [address] [address] Nunu Borges MUCOUS NONE SEEN Normal NONE SEEN [facility] Comment on above: Performed By: #### U AMIC #### [facility] [address] [address] [address] Nunu Borges Nitrite Ql (U) Negative Normal NEGATIVE [facility] Comment on above: Performed By: #### U AMIC #### [facility] [address] [address] [address] Nunu Borges pH (U) 7.0 [pH] Normal 5-9 [facility] Comment on above: Performed By: #### U AMIC #### [facility] [address] [address] [address] Nunu Borges RBC NONE SEEN Abnormal 0-2 [facility] Comment on above: Performed By: #### U AMIC #### [facility] [address] [address] [address] Nunu Borges SPEC GRAVITY 1.010 Normal 1.005-<=1.02 5 [facility] Comment on above: Performed By: #### U AMIC #### [facility] [address] [address] [address] Nunu Borges UA PROTEIN Negative Normal NEGATIVE/ TRACE [facility] Comment on above: Performed By: #### U AMIC #### [facility] [address] [place] [address] Dr. Nunu Borges Urobilinogen Qn (U) 0.2 {Myriam'U}/dL Normal 0.2 - 1. 0 [facility] Comment on above: Performed By: #### U AMIC #### [facility] [address] [address] [address] Nunu Borges WBC 5-10 Abnormal NONE SEEN [facility] Comment on above: Performed By: #### U AMIC #### [facility] [address] [address] [address] Nunu Borges FERRITINon 02-13-2022 Ferritin [Mass/Vol] 72.0 ng/mL Normal 8.0-252.0 [facility] Comment on above: Performed By: #### U TIFFANIE, MG, RENAL #### [facility] [address] [place] [address] Dr. Nunu Borges GLYCOHEMOGLOBIN A1Con 2021 ADA RECOMMENDATION SEE BELOW Normal [facility] Comment on above: Result Comment: ADA RECOMMENDED LIMIT 4.0 - 6.0 ADA THERAPEUTIC TARGET < 7.0 ACTION SUGGESTED > 7.0 Performed By: #### A 1C #### [facility] [address] [place] [address] Dr. Nunu Borges Glucose [Mass/Vol] 143 mg/dL Normal [facility] Comment on above: Performed By: #### A 1C #### [facility] [address] [place] [address] Dr. Nunu Borges HbA1c (Bld) [Mass fraction] 6.6 % Critically high 4.5-6.2 [facility] Comment on above: Performed By: #### A 1C #### [facility] [address] [place] [address] Dr. Nunu Borges HEMOGRAM AND PLATELon 2021 Hematocrit (Bld) [Volume fraction] 36.1 % Normal 36.0-48.0 [facility] Comment on above: Performed By: #### U TIFFANIE, MG, RENAL #### [facility] [address] [place] [address] Dr. Nunu Borges Hemoglobin (Bld) [Mass/Vol] 11.5 g/dL Critically low 12.0-16.0 [facility] Comment on above: Performed By: #### U TIFFANIE, MG, RENAL #### [facility] [address] [address] [address] Nunu Borges MCH (RBC) [Entitic mass] 29.1 pg Normal 26.7-34.0 [facility] Comment on above: Performed By: #### U TIFFANIE, MG, RENAL #### [facility] [address] [address] [address] Nunu Borges MCHC (RBC) [Mass/Vol] 31.9 g/dL Normal 29.9-35.2 [facility] Comment on above: Performed By: #### U TIFFANIE, MG, RENAL #### [facility] [address] [address] [address] Nunu Borges MCV (RBC) [Entitic vol] 91.4 fL Normal 81.0-99.0 [facility] Comment on above: Performed By: #### U TIFFANIE, MG, RENAL #### [facility] [address] [address] [address] Nunu Borges PLT 348 103/ul Normal 150-450 [facility] Comment on above: Performed By: #### U TIFFANIE, MG, RENAL #### [facility] [address] [address] [address] Nunu Borges RBC 3.95 106/ul Critically low 4.20-5.40 [facility] Comment on above: Performed By: #### U TIFFANIE, MG, RENAL #### [facility] [address] [address] [address] Nunu Borges WBC 4.4 103/ul Normal 4.0-11.0 [facility] Comment on above: Performed By: #### U TIFFANIE, MG, RENAL #### [facility] [address] [address] [address] Nunu Borges IRON AND TIBCon 02-13-2022 % SATURATION 17.1 % Normal [facility] Comment on above: Performed By: #### U TIFFANIE, MG, RENAL #### [facility] [address] [address] [address] Nunu Borges Iron [Mass/Vol] 56.0 ug/dL Normal 50.0-170.0 [facility] Comment on above: Performed By: #### U TIFFANIE, MG, RENAL #### [facility] [address] [address] [address] Nunu Borges TIBC DIRECT 327.0 ug/dL Normal 250.0-450.0 [facility] Comment on above: Performed By: #### U TIFFANIE, MG, RENAL #### [facility] [address] [address] [address] Nunu Borges MAGNESIUMon 02-13-2022 Magnesium [Mass/Vol] 1.8 mg/dL Normal 1.8-2.4 [facility] Comment on above: Performed By: #### U TIFFANIE, MG, RENAL #### [facility] [address] [address] [address] Nunu Borges RENAL FUNCTION PANELon 02-13 Albumin [Mass/Vol] 3.7 g/dL Normal 3.4-5.0 [facility] Comment on above: Performed By: #### U TIFFANIE, MG, RENAL #### [facility] [address] [address] [address] Nunu Borges Calcium [Mass/Vol] 9.4 mg/dL Normal 8.5-10.1 [facility] Comment on above: Performed By: #### U TIFFANIE, MG, RENAL #### [facility] [address] [address] [address] Nunu Borges Chloride [Moles/Vol] 100 mmol/L Normal 98-107 [facility] Comment on above: Performed By: #### U TIFFANIE, MG, RENAL #### [facility] [address] [address] [address] Nunu Borges CO2 [Moles/Vol] 30.0 mmol/L Normal 21.0-32.0 [facility] Comment on above: Performed By: #### U TIFFANIE, MG, RENAL #### [facility] [address] [address] [address] Nunu Borges Creatinine [Mass/Vol] 1.31 mg/dL Critically high 0.55-1.02 [facility] Comment on above: Performed By: #### U TIFFANIE, MG, RENAL #### [facility] [address] [address] [address] Nunu Borges EGFR-AF PARAGUAYAN 49 mL/min/1.73m2 Critically low >=60 [facility] Comment on above: Performed By: #### U TIFFANIE, MG, RENAL #### [facility] [address] [address] [address] Nunu Borges EGFR-NON AF PARAGUAYAN 40 mL/min/1.73m2 Critically low >=60 [facility] Comment on above: Performed By: #### U TIFFANIE, MG, RENAL #### [facility] [address] [address] [address] Nunu Borges Glucose [Mass/Vol] 98 mg/dL Normal 74-106 [facility] Comment on above: Performed By: #### U TIFFANIE, MG, RENAL #### [facility] [address] [place] [address] Dr. Nunu Borges Phosphate [Mass/Vol] 3.0 mg/dL Normal 2.6-4.7 [facility] Comment on above: Performed By: #### U TIFFANIE, MG, RENAL #### [facility] [address] [address] [address] Nunu Borges Potassium [Moles/Vol] 4.4 mmol/L Normal 3.5-5.1 [facility] Comment on above: Performed By: #### U TIFFANIE, MG, RENAL #### [facility] [address] [address] [address] Nunu Borges Sodium [Moles/Vol] 133 mmol/L Critically low 136-145 [facility] Comment on above: Performed By: #### U TIFFANIE, MG, RENAL #### [facility] [address] [address] [address] Nunu Borges Urea nitrogen [Mass/Vol] 23.0 mg/dL Critically high 7.0-18.0 [facility] Comment on above: Performed By: #### U TIFFANIE, MG, RENAL #### [facility] [address] [address] [address] Nunu Borges URIC ACID SERUMon 02-13-2022 Urate [Mass/Vol] 5.9 mg/dL Normal 2.6-6.0 [facility] Comment on above: Performed By: #### U TIFFANIE, MG, RENAL #### [facility] [address] [place] [address] Dr. Nunu Borges VITAMIN D 25 OHon 02-13-2022 VIT D 25-OH 70.3 ng/mL Normal [facility] Comment on above: Performed By: #### U TIFFANIE, MG, RENAL #### [facility] [address] [place] [address] Dr. Nunu Borges VIT D RANGES SEE BELOW Normal [facility] Comment on above: Result Comment: <20 ng/mL Vit D deficient 20 - <30 ng/mL Vit D insufficient 30 - 100 ng/mL Vit D sufficient >100 ng/mL Potential Toxicity Performed By: #### U TIFFANIE, MG, RENAL #### [facility] [address] [place] [address] Dr. Nunu Borges CBC AUTO DIFFon 01-27-2022 BASO # 0.0 103/ul Normal 0.0-0.1 [facility] Comment on above: Performed By: #### U TIFFANIE, MG, RENAL #### [facility] [address] [place] [address] Dr. Nunu Broges Basophils/100 WBC (Bld) 0.2 % Normal 0.2-2.0 [facility] Comment on above: Performed By: #### U TIFFANIE, MG, RENAL #### [facility] [address] [place] [address] Dr. Nunu Borges EO # 0.1 103/ul Normal 0.0-0.7 [facility] Comment on above: Performed By: #### U TIFFANIE, MG, RENAL #### [facility] [address] [place] [address] Dr. Nunu Borges Eosinophils/100 WBC (Bld) 0.9 % Normal 0.9-7.0 [facility] Comment on above: Performed By: #### U TIFFANIE, MG, RENAL #### [facility] [address] [place] [address] Dr. Nunu Borges Erythrocyte distribution width (RBC) [Ratio] 12.5 % Normal 11.0-15.0 [facility] Comment on above: Performed By: #### U TIFFANIE, MG, RENAL #### [facility] [address] [address] [address] Nunu Borges Hematocrit (Bld) [Volume fraction] 32.5 % Critically low 36.0-48.0 [facility] Comment on above: Performed By: #### U TIFFANIE, MG, RENAL #### [facility] [address] [address] [address] Nunu Borges Hemoglobin (Bld) [Mass/Vol] 10.9 g/dL Critically low 12.0-16.0 [facility] Comment on above: Performed By: #### U TIFFANIE, MG, RENAL #### [facility] [address] [place] [address] Dr. Nunu Borges IG # 0.14 10e3/ul Critically high 0.00-0.03 [facility] Comment on above: Performed By: #### U TIFFANIE, MG, RENAL #### [facility] [address] [address] [address] Nunu Borges IG % 1.5 % Critically high 0.0-0.5 [facility] Comment on above: Performed By: #### U TIFFANIE, MG, RENAL #### [facility] [address] [place] [address] Dr. Nunu Borges LYMPH # 1.5 103/ul Normal 1.2-3.8 [facility] Comment on above: Performed By: #### U TIFFANIE, MG, RENAL #### [facility] [address] [address] [address] Nunu Borges Lymphocytes/100 WBC (Bld) 15.5 % Critically low 20.5-60.0 [facility] Comment on above: Performed By: #### U TIFFANIE, MG, RENAL #### [facility] [address] [address] [address] Nunu Borges MANUAL DIFF REQ NO Normal [facility] Comment on above: Performed By: #### U TIFFANIE, MG, RENAL #### [facility] [address] [address] [address] Nunu Borges MCH (RBC) [Entitic mass] 29.6 pg Normal 26.7-34.0 [facility] Comment on above: Performed By: #### U TIFFANIE, MG, RENAL #### [facility] [address] [address] [address] Nunu Borges MCHC (RBC) [Mass/Vol] 33.5 g/dL Normal 29.9-35.2 [facility] Comment on above: Performed By: #### U TIFFANIE, MG, RENAL #### [facility] [address] [address] [address] Nunu Borges MCV (RBC) [Entitic vol] 88.3 fL Normal 81.0-99.0 [facility] Comment on above: Performed By: #### U TIFFANIE, MG, RENAL #### [facility] [address] [place] [address] Dr. Nunu Borges MONO # 1.2 103/ul Critically high 0.3-0.8 [facility] Comment on above: Performed By: #### U TIFFANIE, MG, RENAL #### [facility] [address] [address] [address] Nunu Borges Monocytes/100 WBC (Bld) 12.9 % Critically high 1.7-12.0 [facility] Comment on above: Performed By: #### U TIFFANIE, MG, RENAL #### [facility] [address] [address] [address] Nunu Borges NEUT # 6.5 103/ul Normal 1.4-6.5 [facility] Comment on above: Performed By: #### U TIFFANIE, MG, RENAL #### [facility] [address] [address] [address] Nunu Borges Neutrophils/100 WBC (Bld) 69.0 % Normal 43.0-75.0 [facility] Comment on above: Performed By: #### U TIFFANIE, MG, RENAL #### [facility] [address] [address] [address] Nunu Borges Platelet mean volume (Bld) [Entitic vol] 11.8 fL Normal 9.5-13.5 [facility] Comment on above: Performed By: #### U TIFFANIE, MG, RENAL #### [facility] [address] [place] [address] Dr. Nunu Borges PLT 239 103/ul Normal 150-450 [facility] Comment on above: Performed By: #### U TIFFANIE, MG, RENAL #### [facility] [address] [place] [address] Dr. Nunu Borges RBC 3.68 106/ul Critically low 4.20-5.40 [facility] Comment on above: Performed By: #### U TIFFANIE, MG, RENAL #### [facility] [address] [place] [address] Dr. Nunu Borges WBC 9.4 103/ul Normal 4.0-11.0 [facility] Comment on above: Performed By: #### U TIFFANIE, MG, RENAL #### [facility] [address] [place] [address] Dr. Nunu Borges POINT OF CARE GLUCOSEon 01-08 Glucose [Mass/Vol] 226 mg/dL Critically high 74-106 T [facility] Comment on above: Performed By: #### U TIFFANIE, MG, RENAL #### [facility] [address] [place] [address] Dr. Nunu Borges PROF CHEM 8 (BAS METB)on Anion gap [Moles/Vol] 10.5 mmol/L Normal [facility] Comment on above: Performed By: #### U TIFFANIE, MG, RENAL #### [facility] [address] [place] [address] Dr. Nunu Borges Calcium [Mass/Vol] 8.2 mg/dL Critically low 8.5-10.1 Th [facility] Comment on above: Performed By: #### U TIFFANIE, MG, RENAL #### [facility] [address] [place] [address] Dr. Nunu Borges Chloride [Moles/Vol] 103 mmol/L Normal 98-107 [facility] Comment on above: Performed By: #### U TIFFANIE, MG, RENAL #### [facility] [address] [address] [address] Nunu Borges CO2 [Moles/Vol] 26.0 mmol/L Normal 21.0-32.0 [facility] Comment on above: Performed By: #### U TIFFANIE, MG, RENAL #### [facility] [address] [address] [address] Nunu Borges Creatinine [Mass/Vol] 1.04 mg/dL Critically high 0.55-1.02 [facility] Comment on above: Performed By: #### U TIFFANIE, MG, RENAL #### [facility] [address] [address] [address] Nunu Borges EGFR-AF PARAGUAYAN >60 Normal >=60 [facility] Comment on above: Performed By: #### U TIFFANIE, MG, RENAL #### [facility] [address] [address] [address] Nunu Borges EGFR-NON AF PARAGUAYAN 53 mL/min/1.73m2 Critically low >=60 [facility] Comment on above: Performed By: #### U TIFFANIE, MG, RENAL #### [facility] [address] [address] [address] Nunu Borges Glucose [Mass/Vol] 91 mg/dL Normal 74-106 [facility] Comment on above: Performed By: #### U TIFFANIE, MG, RENAL #### [facility] [address] [address] [address] Nunu Borges Potassium [Moles/Vol] 3.5 mmol/L Normal 3.5-5.1 [facility] Comment on above: Performed By: #### U TIFFANIE, MG, RENAL #### [facility] [address] [address] [address] Nunu Borges Sodium [Moles/Vol] 136 mmol/L Normal 136-145 [facility] Comment on above: Performed By: #### U TIFFANIE, MG, RENAL #### [facility] [address] [address] [address] Nunu Borges Urea nitrogen [Mass/Vol] 32.0 mg/dL Critically high 7.0-18.0 [facility] Comment on above: Performed By: #### U TIFFANIE, MG, RENAL #### [facility] [address] [place] [address] Dr. Nunu Borges Urea nitrogen/Creatinine [Mass ratio] 30.8 mg/mg Normal [facility] Comment on above: Performed By: #### U TIFFANIE, MG, RENAL #### [facility] [address] [place] [address] Dr. Nunu Borges CBC AUTO DIFFon 01-26-2022 BASO # 0.0 103/ul Normal 0.0-0.1 [facility] Comment on above: Performed By: #### C BC #### [facility] [address] [place] [address] Dr. Nunu Borges Basophils/100 WBC (Bld) 0.1 % Critically low 0.2-2.0 [facility] Comment on above: Performed By: #### C BC #### [facility] [address] [place] [address] Dr. Nunu Borges EO # 0.1 103/ul Normal 0.0-0.7 [facility] Comment on above: Performed By: #### C BC #### [facility] [address] [place] [address] Dr. Nunu Borges Eosinophils/100 WBC (Bld) 0.4 % Critically low 0.9-7.0 [facility] Comment on above: Performed By: #### C BC #### [facility] [address] [place] [address] Dr. Nunu Borges Erythrocyte distribution width (RBC) [Ratio] 12.2 % Normal 11.0-15.0 [facility] Comment on above: Performed By: #### C BC #### [facility] [address] [place] [address] Dr. Nunu Borges Hematocrit (Bld) [Volume fraction] 36.7 % Normal 36.0-48.0 [facility] Comment on above: Performed By: #### C BC #### [facility] [address] [place] [address] Dr. Nunu Borges Hemoglobin (Bld) [Mass/Vol] 12.1 g/dL Normal 12.0-16.0 [facility] Comment on above: Performed By: #### C BC #### [facility] [address] [place] [address] Dr. Nunu Borges IG # 0.42 10e3/ul Critically high 0.00-0.03 [facility] Comment on above: Performed By: #### C BC #### [facility] [address] [place] [address] Dr. Nunu Borges IG % 2.4 % Critically high 0.0-0.5 [facility] Comment on above: Performed By: #### C BC #### [facility] [address] [place] [address] Dr. Nunu Borges LYMPH # 0.8 103/ul Critically low 1.2-3.[address] [facility] Comment on above: Performed By: #### C BC #### [facility] [address] [place] [address] Dr. Nunu Borges Lymphocytes/100 WBC (Bld) 4.5 % Critically low 20.5-60.0 [facility] Comment on above: Performed By: #### C BC #### [facility] [address] [place] [address] Dr. Nunu Borges MANUAL DIFF REQ NO Normal [facility] Comment on above: Performed By: #### C BC #### [facility] [address] [place] [address] Dr. Nunu Borges MCH (RBC) [Entitic mass] 29.2 pg Normal 26.7-34.0 [facility] Comment on above: Performed By: #### C BC #### [facility] [address] [place] [address] Dr. Nunu Borges MCHC (RBC) [Mass/Vol] 33.0 g/dL Normal 29.9-35.2 [facility] Comment on above: Performed By: #### C BC #### [facility] [address] [place] [address] Dr. Nunu Borges MCV (RBC) [Entitic vol] 88.6 fL Normal 81.0-99.0 [facility] Comment on above: Performed By: #### C BC #### [facility] [address] [place] [address] Dr. Nunu Borges MONO # 1.4 103/ul Critically high 0.3-0.8 [facility] Comment on above: Performed By: #### C BC #### [facility] [address] [place] [address] Dr. Nunu Borges Monocytes/100 WBC (Bld) 7.6 % Normal 1.7-12.0 [facility] Comment on above: Performed By: #### C BC #### [facility] [address] [place] [address] Dr. Nunu Borges NEUT # 15.0 103/ul Critically high 1.4-6.5 [facility] Comment on above: Performed By: #### C BC #### [facility] [address] [place] [address] Dr. Nunu Borges Neutrophils/100 WBC (Bld) 85.0 % Critically high 43.0-75.0 [facility] Comment on above: Performed By: #### C BC #### [facility] [address] [place] [address] Dr. Nunu Borges Platelet mean volume (Bld) [Entitic vol] 11.5 fL Normal 9.5-13.5 [facility] Comment on above: Performed By: #### C BC #### [facility] [address] [place] [address] Dr. Nunu Borges PLT 277 103/ul Normal 150-450 [facility] Comment on above: Performed By: #### C BC #### [facility] [address] [place], [place] [id number] Dr. Nunu Borges RBC 4.14 106/ul Critically low 4.20-5.40 [facility] Comment on above: Performed By: #### C BC #### [facility] [address] [place] [address] Dr. Nunu Borges WBC 17.7 103/ul Critically high 4.0-11.0 [facility] Comment on above: Performed By: #### C BC #### [facility] [address] [address] [address] Nunu Borges CULTURE BLOODon 01-26-2022 Microscopic examination of blood, culture Culture Observations: NO GROWTH AT 5 DAYS. Normal [facility] Comment on above: Performed By: #### U AMIC #### [facility] [address] [place] [address] Dr. Nunu Borges Microscopic examination of blood, culture Culture Observations: NO GROWTH AT 5 DAYS. Normal [facility] Comment on above: Performed By: #### U AMIC #### [facility] [address] [place] [address] Dr. Nunu Borges CULTURE URINEon 01-26-2022 CULTURE URINE Culture Observations: LIGHT GROWTH OF MIXED GENITAL GABRIELLE. NO POTENTIAL PATHOGENS SEEN. Normal [facility] Comment on above: Performed By: #### U AMIC #### [facility] [address] [place] [address] Dr. Nuun Borges Covid-19 PCR (CVDTBH)on 01-08 SARS-CoV-2 (COVID-19) RNA GREG+probe Ql (Unsp spec) Detected Critically abnormal NOT DETECTED [facility] Comment on above: Result Comment: This test is not yet approved or cleared by the [place] FDA. When there are no FDA-approved or cleared tests available, and other criteria are met, FDA can make tests available under an emergency access mechanism called an Emergency Use Authorization (EUA). The EUA for this test is supported by the [place] of Health and Human Service's declaration that [...] used). Performed By: #### C VDTBH #### [facility] [address] [place] [address] Dr. Nunu Borges ER URINE PROFILEon 2 Bilirubin Ql (U) Negative Normal NEGATIVE [facility] Comment on above: Performed By: #### U AMIC #### [facility] [address] [address] [address] Nunu Borges Clarity (U) CLEAR Normal CLEAR [facility] Comment on above: Performed By: #### U AMIC #### [facility] [address] [address] [address] Nunu Borges Color (U) LT. YELLOW Normal YELLOW [facility] Comment on above: Performed By: #### U AMIC #### [facility] [address] [address] [address] Nunu MEZA A micrscopic examination will be performed if indicated. Normal [facility] Comment on above: Performed By: #### U AMIC #### [facility] [address] [place] [address] Dr. Nunu Borges Glucose Ql (U) Negative Normal NEGATIVE [facility] Comment on above: Performed By: #### U AMIC #### [facility] [address] [place] [address] Dr. Nnuu Borges Hemoglobin Ql (U) Negative Normal NEGATIVE [facility] Comment on above: Performed By: #### U AMIC #### [facility] [address] [place] [address] Dr. Nunu Borges Ketones Ql (U) Negative Normal NEGATIVE [facility] Comment on above: Performed By: #### U AMIC #### [facility] [address] [address] [address] Nunu Borges LEUKOCYTES MODERATE Abnormal NEGATIVE [facility] Comment on above: Performed By: #### U AMIC #### [facility] [address] [place] [address] Dr. Nunu Borges Nitrite Ql (U) Negative Normal NEGATIVE [facility] Comment on above: Performed By: #### U AMIC #### [facility] [address] [place] [address] Dr. Nunu Borges pH (U) 6.0 [pH] Normal 5-9 [facility] Comment on above: Performed By: #### U AMIC #### [facility] [address] [address] [address] Nunu Borges SPEC GRAVITY 1.010 Normal 1.005-<=1.02 5 [facility] Comment on above: Performed By: #### U AMIC #### [facility] [address] [address] [address] Nunu Borges UA PROTEIN Negative Normal NEGATIVE/ TRACE [facility] Comment on above: Performed By: #### U AMIC #### [facility] [address] [address] [address] Nunu Borges UR MICRO IND INDICATED Normal [facility] Comment on above: Performed By: #### U AMIC #### [facility] [address] [place] [address] Dr. Nunu Borges Urobilinogen Qn (U) 0.2 {Myriam'U}/dL Normal 0.2 - 1. 0 [facility] Comment on above: Performed By: #### U AMIC #### [facility] [address] [address] [address] Nunu Borges POINT OF CARE GLUCOSEon 01-08 Glucose [Mass/Vol] 262 mg/dL Critically high 74-106 T [facility] Comment on above: Performed By: #### U TIFFANIE, MG, RENAL #### [facility] [address] [place] [address] Dr. Nunu Borges PROF CHEM 8 (BAS METB)on Anion gap [Moles/Vol] 18.7 mmol/L Normal [facility] Comment on above: Performed By: #### U AMIC #### [facility] [address] [address] [address] Nunu Borges Calcium [Mass/Vol] 9.0 mg/dL Normal 8.5-10.1 [facility] Comment on above: Performed By: #### U AMIC #### [facility] [address] [place] [address] Dr. Nunu Borges Chloride [Moles/Vol] 95 mmol/L Critically low 98-107 [facility] Comment on above: Performed By: #### U AMIC #### [facility] [address] [address] [address] Nunu Borges CO2 [Moles/Vol] 20.6 mmol/L Critically low 21.0-32.0 [facility] Comment on above: Performed By: #### U AMIC #### [facility] [address] [address] [address] Nunu Borges Creatinine [Mass/Vol] 1.79 mg/dL Critically high 0.55-1.02 [facility] Comment on above: Performed By: #### U AMIC #### [facility] [address] [address] [address] Nunu Borges EGFR-AF PARAGUAYAN 21 mL/min/1.73m2 Critically low >=60 [facility] Comment on above: Performed By: #### U AMIC #### [facility] [address] [address] [address] Nunu Borges EGFR-NON AF PARAGUAYAN 18 mL/min/1.73m2 Critically low >=60 [facility] Comment on above: Performed By: #### U AMIC #### [facility] [address] [address] [address] Nunu Borges Glucose [Mass/Vol] 261 mg/dL Critically high 74-106 T [facility] Comment on above: Performed By: #### U AMIC #### [facility] [address] [address] [address] Nunu Borges Potassium [Moles/Vol] 4.3 mmol/L Normal 3.5-5.1 [facility] Comment on above: Performed By: #### U AMIC #### [facility] [address] [address] [address] Nunu Borges Sodium [Moles/Vol] 130 mmol/L Critically low 136-145 [facility] Comment on above: Performed By: #### U AMIC #### [facility] [address] [address] [address] Nunu Borges Urea nitrogen [Mass/Vol] 54.0 mg/dL Critically high 7.0-18.0 [facility] Comment on above: Performed By: #### U AMIC #### [facility] [address] [address] [address] Nunu Borges Urea nitrogen/Creatinine [Mass ratio] 30.2 mg/mg Normal [facility] Comment on above: Performed By: #### U AMIC #### [facility] [address] [address] [address] Nunu Borges URINE MICROSCOPIC ONLYon BACTERIA TRACE Abnormal NONE SEEN [facility] Comment on above: Performed By: #### U AMIC #### [facility] [address] [address] [address] Nunu Borges Bacteria identified Cx Nom (U) INDICATED Normal [facility] Comment on above: Performed By: #### U AMIC #### [facility] [address] [place] [address] Dr. Nunu Borges CAST SEEN Abnormal NONE SEEN [facility] Comment on above: Performed By: #### U AMIC #### [facility] [address] [address] [address] Nunu Borges Crystals LM Nom (Urine sed) NONE SEEN Normal NONE SEEN [facility] Comment on above: Performed By: #### U AMIC #### [facility] [address] [address] [address] Nunu Borges Epithelial cells LM Ql (Urine sed) RARE Normal NONE SEEN /RARE [facility] Comment on above: Performed By: #### U AMIC #### [facility] [address] [address] [address] Nunu Borges HYALINE CAST RARE Normal [facility] Comment on above: Performed By: #### U AMIC #### [facility] [address] [address] [address] Nunu Borges MUCOUS NONE SEEN Normal NONE SEEN [facility] Comment on above: Performed By: #### U AMIC #### [facility] [address] [address] [address] Nunu Borges RBC 0-2 Normal 0-2 [facility] Comment on above: Performed By: #### U AMIC #### [facility] [address] [address] [address] Nunu Borges WBC 2-5 Abnormal NONE SEEN [facility] Comment on above: Performed By: #### U AMIC #### [facility] [address] [address] [address] Nunu Borges [facility]07 SARS-CoV-2 (COVID-19) RNA GREG+probe Ql (Unsp spec) Detected Critically abnormal NOT DETECTED [facility] Comment on above: Result Comment: This test is not yet approved or cleared by the [place] FDA. When there are no FDA-approved or cleared tests available, and other criteria are met, FDA can make tests available under an emergency access mechanism called an Emergency Use Authorization (EUA). The EUA for this test is supported by the [place] of Health and Human Service's declaration that [...] for this test is supported by the [employer] of Health and Human Service's (HHS's) declaration [...] used). Performed By: #### C VDTBH #### [facility] [address] [address] [address] Nunu Borges MG MAMM SCREEN 3D RODERICK CADon 01-09-2022 MG MAMM SCREEN 3D RODERICK CAD Patient: DOUG REED Exam Date: 01/09/2022 : 1955 Gender:F Ordering : DR ROMULO ALVAREZ . Admission #: [id number] Family : Order #: [id number] CLICK HERE TO VIEW EXAM RADIOLOGY REPORT [...] Treatments None Family Cancers None LOCATION: [facility] BREAST COMPOSITION: Almost entirely fatty. FINDINGS: [...] Licea MD on 01/09/2022 at 12:50 Normal [facility] Cytologyon 07-20-2020 Cytology (NOTE) INTERPRETATION Cervical material, (ThinPrep vial, Imaging-assisted review): Specimen Adequacy: Satisfactory for evaluation. - Endocervical/transf ormation zone component present. Descriptive Diagnosis: Negative for intraepithelial lesion or malignancy. Environmental Scientists: CARLOS Steward(ASCP) Electronically Signed Out chris/07/22/2020 Source: 1: Cervical material, (ThinPrep vial, Imaging-assisted review) Clinical History Postmenopausal Z12.4 Encounter for screening for malignant neoplasm of cervix GYNECOLOGIC CYTOLOGY REPORT Patient Name: DOUG REED [facility] Rec: [id number] Path Number: [id number] [facility] ANATOMIC PATHOLOGY [facility]. [place], [place] [address] Normal [facility] Comment on above: Performed By: #### P PPVP #### [employer] [address] [place] [address] Merchandise Flow Team Member: Jeremiah Acosta MD Main OR Intraoperative Recor handy 11-06-2017 Main OR Intraoperative Record IntraOp Document Type FTURO Summary Primary Physician: Juan Delarosa Jr., MD Finalized Date/Time: 11/06/17 12:28:35 Pt. Name: DOUG REED Kvng Gupta/Sex: 1955 Female Med Rec #: [id number] Physician: Juna Delarosa Jr., MD Financial #: [id number] Pt. Type: O Room/Bed: / Admit/Disch: 10/11/17 [...] CST, Juan Mccann Jr., MD Role Performed Practice Business Asst - Primary Scrub - Primary Surgeon - Primary Time In 10/11/17 13:16:00 10/11/17 13:16:00 10/11/17 13:18:00 Time Out 10/11/17 13:22:00 10/11/17 13:22:00 10/11/17 13:22:00 Procedure CYSTOSCOPY LOCAL(.) CYSTOSCOPY LOCAL(.) CYSTOSCOPY LOCAL(.) Comments Last Modified By: Kristyn PRADHAN, SAADOR, SAAD Bermudez RNORKeerthi RN, CNOR, Kate 10/11/17 13:21:53 10/11/17 13:21:53 10/11/17 13:21:53 [...] Prep Agents Betadine Solution Skin. Condition Intact, [place], Warm, and Dry Additional None Specimens Collected [...] Simons RN, Lou Ann 11/06/17 12:28 Normal [facility] Main OR Preoperative Recordo n 11-06-2017 Main OR Preoperative Record Holding Area Document Type FTURO Summary Primary Physician: Juan Delarosa Jr., MD Finalized Date/Time: 11/06/17 12:28:41 Pt. Name: DOUG REED Candy/Sex: 1955 Female Med Rec #: [id number] Physician: Juan Delarosa Jr., MD Financial #: [id number] Pt. Type: O Room/Bed: / Admit/Disch: 10/11/17 [...] of Pain: No Comment: Skin Integrity Intact, [place], Warm, & Dry Vitals - EU Blood Pressure 98/55 Pulse 76 bpm Respirations 18 br/min SPO2 RN Reviewed Yes Last Modified By: KIET Simons RN, Lou Ann 10/11/17 13:00:54 Finalized By: KIET Simons RN, Lou Ann Document Signatures Signed By: KIET Simons RN, Lou Ann 10/11/17 13:00 Karen Rutherford LPN 10/11/17 12:58 KIET Simons RN, Lou Ann 11/06/17 12:28 Normal [facility] Coding Summary.on 10-19-2017 Coding Summary. 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 However, the narrative phrase printed from the coding software may appear abbreviated, or result in slightly different terminology. Coded By: Ellie Saldaña Date Saved: 10/19/2017 08:52 am Normal [facility] Operative Reporton 8 Operative Report Patient: DOUG REED Age: 61 years Sex: Female : 1955 Associated Diagnoses: None Author: Washington Bennett MD, Juan Rios Procedure Operative Information Details: Date/ Time: 10/11/17 13:25:00. 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 Post-Op Dx: Same. Anesthesia Type: Local. Procedure: Local Cystoscopy with Urethral Dilation. Complications: None. Risks/Benefits/Info rmed Consent: Surgical risks, benefits, details of the [...] urine. The Urethra was dilated to: 30 [place]z w/ sounds. Devices Implanted: None. Removal: Cystoscope [...] negative. This completes her hematuria workup.. Normal [facility] Comment on above: Result Comment: Elec tronically Signed By: Washington Bennett MD, Juan Rios\.dany\Date and Time Signed: 10/11/17 13:26 EDT Vital Signs Date Time Vital Sign Value Performing Clinician Facility 02-28-2024 13:17-0500 Body height 172.7 cm Romulo Alvarez MD Work Phone: [facility] 02-28-2024 13:17-0500 Body mass index (BMI) [Ratio] 23.11 kg/m2 Romulo Alvarez MD Work Phone: [facility] 02-28-2024 13:17-0500 Body temperature 97.11 [degF] Romulo Alvarez MD Work Phone: [facility] 02-28-2024 13:17-0500 Body weight 68.95 kg Romulo Alvarez MD Work Phone: [facility] 02-28-2024 13:17-0500 Diastolic blood pressure 80 mm[Hg] Romulo Alvarez MD Work Phone: [facility] 02-28-2024 13:17-0500 Heart rate 85 /min Romulo Alvarez MD Work Phone: [facility] 02-28-2024 13:17-0500 Respiratory rate 22 /min Romulo Alvarez MD Work Phone: [facility] 02-28-2024 13:17-0500 SaO2% (BldA) [Mass fraction] 98 % Romulo Alvarez MD Work Phone: [facility] 02-28-2024 13:17-0500 Systolic blood pressure 136 mm[Hg] Romulo Alvarez MD Work Phone: [facility] 01-31-2024 12:34-0400 Body mass index (BMI) [Ratio] 28.7 kg/m2 [facility] 01-31-2024 12:34-0400 Diastolic blood pressure 74 mm[Hg] [facility] 01-31-2024 12:34-0400 Systolic blood pressure 122 mm[Hg] [facility] 01-31-2024 11:12-0400 Body height 154.94 cm [facility] 01-31-2024 11:12-0400 Body temperature 96.8 [degF] [facility] 01-31-2024 11:12-0400 Body weight 69 kg [facility] 01-31-2024 11:12-0400 Heart rate 85 /min [facility] 01-31-2024 11:12-0400 Respiratory rate 18 /min [facility] 01-31-2024 11:12-0400 SaO2% (BldA) [Mass fraction] 98 % [facility] 01-10-2024 08:45-0400 Body height 172.7 cm Vianey Melton DPM Work Phone: [facility] 01-10-2024 08:45-0400 Body mass index (BMI) [Ratio] 22.66 kg/m2 Vianey Melton DPM Work Phone: [facility] 01-10-2024 08:45-0400 Body weight 67.59 kg Vianey Melton DPM Work Phone: [facility] 12-11-2023 13:17-0400 Body height 172.7 cm Romulo Alvarez MD Work Phone: [facility] 12-11-2023 13:17-0400 Body mass index (BMI) [Ratio] 22.2 kg/m2 Romulo Alvarez MD Work Phone: [facility] 12-11-2023 13:17-0400 Body temperature 97.11 [degF] Romulo Alvarez MD Work Phone: [facility] 12-11-2023 13:170400 Body weight 66.22 kg Romulo Alvarez MD Work Phone: [facility] 12-11-2023 13:17-0400 Diastolic blood pressure 64 mm[Hg] Romulo Alvarez MD Work Phone: [facility] 12-11-2023 13:17-0400 Heart rate 77 /min Romulo Alvarez MD Work Phone: [facility] 12-11-2023 13:170400 Respiratory rate 20 /min Romulo Alvarez MD Work Phone: [facility] 12-11-2023 13:170400 SaO2% (BldA) [Mass fraction] 96 % Romulo Alvarez MD Work Phone: [facility] 12-11-2023 13:17-0400 Systolic blood pressure 122 mm[Hg] Romulo Alvarez MD Work Phone: [facility] 09-19-2023 10:12-0400 Body height 172.[address] 09-19-2023 10:12-0400 Body mass index (BMI) [Ratio] 26.15 kg/m2 [address] 09-19-2023 10:12-0400 Body weight 78.[address] 04-05-2023 10:00-0500 Body height 154.94 cm Ghislaine Ada Other [employer] Other 04-05-2023 10:00-0500 Body mass index (BMI) [Ratio] 29.85 kg/m2 Ghislaine Ada Other [employer] Other 04-05-2023 10:00-0500 Body temperature 97.2 [degF] Ghislaine Ada Other [employer] Other 04-05-2023 10:00-0500 Body weight 71.67 kg Ghislaine Ada Other [employer] Other 04-05-2023 10:00-0500 Diastolic blood pressure 60 mm[Hg] Ghislaine Ada Other [employer] Other 04-05-2023 10:00-0500 Respiratory rate 18 /min Ghislaine Ada Other [employer] Other 04-05-2023 10:00-0500 SaO2% (BldA) [Mass fraction] 98 % Ghislaine Ada Other [employer] Other 04-05-2023 10:00-0500 Systolic blood pressure 124 mm[Hg] Ghislaine Ada Other [employer] Other 09-07-2022 14:00-0400 Body height 154.94 cm Ghislaine Ada Other [employer] Other 09-07-2022 14:00-0400 Body mass index (BMI) [Ratio] 29.47 kg/m2 Ghislaine Ada Other [employer] Other 09-07-2022 14:00-0400 Body temperature 97.3 [degF] Ghislaine Ada Other [employer] Other 09-07-2022 14:00-0400 Body weight 70.76 kg Ghislaine Ada Other [employer] Other 09-07-2022 14:00-0400 Diastolic blood pressure 70 mm[Hg] Ghislaine Ada Other [employer] Other 09-07-2022 14:00-0400 Respiratory rate 18 /min Ghislaine Ada Other [employer] Other 09-07-2022 14:00-0400 SaO2% (BldA) [Mass fraction] 97 % Ghislaine Ada Other [employer] Other 09-07-2022 14:00-0400 Systolic blood pressure 110 mm[Hg] Ghislaine Ada Other [employer] Other 03-23-2022 11:20-0500 Body height 154.94 cm Ghislaine Ada Other [employer] Other 03-23-2022 11:20-0500 Body mass index (BMI) [Ratio] 28.75 kg/m2 Ghislaine Ada Other [employer] Other 03-23-2022 11:20-0500 Body temperature 96.2 [degF] Ghislaine Ada Other [employer] Other 03-23-2022 11:20-0500 Body weight 69.04 kg Ghislaine Ada Other [employer] Other 03-23-2022 11:20-0500 Diastolic blood pressure 80 mm[Hg] Ghislaine Ada Other [employer] Other 03-23-2022 11:20-0500 Respiratory rate 18 /min Ghislaine Ada Other [employer] Other 03-23-2022 11:20-0500 SaO2% (BldA) [Mass fraction] 96 % Ghislaine Ada Other [employer] Other 03-23-2022 11:20-0500 Systolic blood pressure 122 mm[Hg] Ghislaine Ada Other [employer] Other 09-01-2021 11:00-0400 Body height 154.94 cm Ghislaine Ada Other [employer] Other 09-01-2021 11:00-0400 Body mass index (BMI) [Ratio] 31.29 kg/m2 Ghislaine Ada Other [employer] Other 09-01-2021 11:00-0400 Body temperature 96.8 [degF] Ghislaine Ada Other [employer] Other 09-01-2021 11:00-0400 Body weight 75.12 kg Ghislaine Ada Other [employer] Other 09-01-2021 11:00-0400 Diastolic blood pressure 74 mm[Hg] Ghislaine Ada Other [employer] Other 09-01-2021 11:00-0400 Respiratory rate 18 /min Ghislaine Ada Other [employer] Other 09-01-2021 11:00-0400 SaO2% (BldA) [Mass fraction] 97 % Ghislaine Ada Other [employer] Other 09-01-2021 11:00-0400 Systolic blood pressure 130 mm[Hg] Ghislaien Ada Other [employer] Other 02-10-2021 10:20-0400 Body height 154.94 cm Ghislaine Ada Other [employer] Other 02-10-2021 10:20-0400 Body mass index (BMI) [Ratio] 30.83 kg/m2 Ghislaine Ada Other [employer] Other 02-10-2021 10:20-0400 Body temperature 96 [degF] Ghislaine Ada Other [employer] Other 02-10-2021 10:20-0400 Body weight 74.03 kg Ghislaine Ada Other [employer] Other 02-10-2021 10:20-0400 Diastolic blood pressure 74 mm[Hg] Ghislaine Ada Other [employer] Other 02-10-2021 10:20-0400 Respiratory rate 18 /min Ghislaine Ada Other [employer] Other 02-10-2021 10:20-0400 SaO2% (BldA) [Mass fraction] 94 % Ghislaine Ada Other [employer] Other 02-10-2021 10:20-0400 Systolic blood pressure 110 mm[Hg] Ghislaine Ada Other [employer] Other Encounters Encounter Date Encounter Type Care Provider Facility Start: 06-10-2024 End: 06-10-2024 Refill Romulo Alvarez MD Work Phone: [facility] Comment on above: Degeneration of inte rvertebral disc of lumbar region with discogenic back pain Start: 06-03-2024 End: 06-04-2024 Refill Romulo Alvarez MD Work Phone: [facility] Comment on above: Degeneration of inte rvertebral disc of lumbar region with discogenic back pain Start: 05-06-2024 End: 05-06-2024 Clinisync Result Encounter Romulo Alvarez MD Work Phone: [facility] External Department Unsolicited Start: 05-06-2024 End: 05-06-2024 Clinisync Result Encounter Romulo Alvarez MD Work Phone: [facility] External Department Unsolicited Start: 05-04-2024 End: 05-05-2024 Refill Romulo Alvarez MD Work Phone: [facility] Comment on above: Degeneration of inte rvertebral disc of lumbar region with discogenic back pain Start: 04-04-2024 End: 04-07-2024 Refill Romulo Alvarez MD Work Phone: [facility] Comment on above: Degeneration of inte rvertebral disc of lumbar region with discogenic back pain Start: 03-13-2024 End: 03-13-2024 Refill Romulo Alvarez MD Work Phone: [facility] Comment on above: Degeneration of inte rvertebral disc of lumbar region with discogenic back pain Start: 02-28-2024 End: 02-28-2024 Bamboo flowsheet Romulo Alvarez MD Work Phone: [facility] Start: 02-28-2024 End: 02-28-2024 Bamboo flowsheet Romulo Alvarez MD Work Phone: [facility] Start: 02-28-2024 End: 02-28-2024 Patient encounter procedure Romulo Alvarez MD Work Phone: [facility] Work Phone: Start: 02-28-2024 End: 02-28-2024 Postop follow up visit related to original px Romulo Alvarez MD Work Phone: [facility] Comment on above: Medicare annual well ness visit, subsequent (Primary Dx); Type 2 diabetes mellitus with hyperglycemia, without long-term current use of insulin ([facility]); Benign essential hypertension ([facility]); CKD stage 3a, GFR 45-59 ml/min ([facility]); Dyslipidemia ([facility]); Encounter for long-term current use of medication; Breast cancer screening by mammogram Start: 02-28-2024 End: 02-28-2024 ambulatory ROMULO ALVAREZ Not Available Start: 02-12-2024 End: 02-13-2024 Refill Romulo Alvarez MD Work Phone: [facility] Comment on above: Degeneration of inte rvertebral disc of lumbar region with discogenic back pain Start: 01-31-2024 End: 01-31-2024 ambulatory [facility] Work Phone: Start: 01-31-2024 End: 01-31-2024 Patient encounter procedure [facility] Work Phone: Start: 01-14-2024 End: 01-14-2024 Office outpatient visit 25 minutes Jr. Brock Kumar DO Work Phone: [facility] Comment on above: Primary osteoarthrit is of left hip (Primary Dx) Start: 01-14-2024 End: 01-14-2024 ambulatory BROCK BENNETT Not Available Start: 01-12-2024 End: 01-14-2024 Refill Romulo Alvarez MD Work Phone: [facility] Comment on above: Degeneration of inte rvertebral disc of lumbar region with discogenic back pain (Primary Dx) Start: 01-11-2024 End: 01-11-2024 Clinisync Result Encounter Generic External Data Provider [facility] External [facility] Unsolicited Start: 01-11-2024 End: 01-11-2024 Clinisync Result Encounter Generic External Data Provider [facility] External Department Unsolicited Start: 01-11-2024 Non-patient / Non-visit [facility] Work Phone: Start: 01-10-2024 End: 01-10-2024 Bamboo flowsheet Vianey Melton DPM Work Phone: [facility] Start: 01-10-2024 End: 01-10-2024 Bamboo flowsheet Vianey Melton DPM Work Phone: [facility] Start: 01-10-2024 End: 01-10-2024 Patient encounter procedure Vianey Melton DPM Work Phone: [facility] Comment on above: Nail dystrophy (Prim vipin Dx); Onychomycosis; Type II or unspecified type diabetes mellitus with neurological manifestations, not stated as uncontrolled(250.60) (CMS/HCC); Pain in toes of both feet Start: 01-10-2024 End: 01-10-2024 ambulatory VIANEY MELTON Not Available Start: 12-14-2023 End: 01-03-2024 Telephone encounter Vianey Edgar MA [facility] Start: 12-13-2023 End: 12-13-2023 Refill Romulo Alvarez MD Work Phone: [facility] Comment on above: Essential (primary) hypertension (CMS/HCC); Other intervertebral disc degeneration, lumbar region; Age-related osteoporosis without current pathological fracture (CMS/HCC) Start: 12-11-2023 End: 12-11-2023 Bamboo flowsheet Romulo Alvarez MD Work Phone: [facility] Start: 12-11-2023 End: 12-11-2023 Bamboo flowsheet Romulo Alvarez MD Work Phone: [facility] Start: 12-11-2023 End: 12-11-2023 ambulatory ROMULO ALVAREZ Not Available Start: 12-11-2023 End: 12-11-2023 Office outpatient visit 25 minutes Romulo Alvarez MD Work Phone: [facility] Comment on above: Type 2 diabetes adam itus with hyperglycemia, without long-term current use of insulin (CMS/HCC) (Primary Dx); Benign essential hypertension (CMS/HCC); Type 2 diabetes mellitus with stage 3a chronic kidney disease, without long-term current use of insulin (HCC) ([facility]/HCC); Recurrent UTI; Primary osteoarthritis of left hip; Stress, reaction gross; DDD (degenerative disc disease), lumbar; Preoperative clearance Start: 12-11-2023 End: 12-11-2023 Preoperative state Romulo Alvarez MD Work Phone: [facility] Start: 10-18-2023 End: 10-18-2023 ambulatory HERNANDEZ JACQUI Not Available Start: 10-09-2023 End: 10-09-2023 ambulatory ROMULO ALVAREZ [facility] Start: 10-01-2023 End: 10-01-2023 ambulatory SHARONA E RAMBASEK Not Available Start: 09-26-2023 End: 09-26-2023 ambulatory SHARONA E RAMBASEK Not Available Start: 09-25-2023 Preoperative state Romulo lisa MD Work Phone: [facility] Start: 09-25-2023 End: 09-25-2023 ambulatory ROMULO ALVAREZ Not Available Start: 09-24-2023 End: 09-24-2023 ambulatory SHARONA E RAMBASEK Not Available Start: 09-20-2023 End: 09-20-2023 ambulatory ARIANNA BROOKS Not Available Start: 09-19-2023 End: 09-19-2023 ambulatory [facility] Start: 09-19-2023 End: 09-19-2023 ambulatory [facility] Start: 09-19-2023 Encounter for other preprocedural examination [facility] Start: 09-19-2023 End: 09-19-2023 Patient encounter procedure [facility] Pre-Admission Testing [address] [facility] - Pre Admit Comment on above: Preop examination (P rimary Dx); Hypertension, unspecified type; Type 2 diabetes mellitus without complication, without long-term current use of insulin ([facility]); Urinary frequency; Former smoker; Osteoarthritis of left hip, unspecified osteoarthritis type Start: 09-19-2023 End: 09-19-2023 Preprocedural examination done [facility] 2 [facility] Start: 08-01-2023 End: 08-01-2023 ambulatory BROCK BENNETT Not Available Start: 07-23-2023 End: 07-23-2023 ambulatory SAGE Rebeca AMOS Not Available Start: 06-19-2023 End: 06-19-2023 ambulatory VIANEY MELTON Not Available Start: 06-12-2023 End: 06-12-2023 ambulatory ROMULO ALVAREZ Not Available Start: 04-05-2023 End: 04-05-2023 ambulatory Ghislaine Ada Other [employer] Other Start: 04-05-2023 Office outpatient vi sit 25 minutes Ghislaine Ada [facility] Start: 09-07-2022 End: 09-07-2022 ambulatory Ghislaine Ada Other [employer] Other Start: 09-07-2022 Office outpatient vi sit 15 minutes Ghislaine Ada [facility] Start: 08-31-2022 End: 09-01-[address] ROMULO ALVAREZ Facility:[facility] Start: 08-18-2022 End: 08-19-[address] ROMULO ALVAREZ Facility:[facility] Start: 07-26-2022 End: 07-26-[address] ROMULO ALVAREZ Facility:[facility] Start: 07-18-2022 End: 07-18-2022 ambulatory Ghislaine Ada Other [employer] Other Start: 07-18-2022 Telephone encounter Ghislaine Ada [facility] Start: 03-23-2022 End: 03-23-2022 ambulatory Ghislaine Ada Other [employer] Other Start: 03-23-2022 Office outpatient vi sit 25 minutes Ghislaine Ada [facility] Start: 02-14-2022 End: 02-14-[address] ROMULO ALVAREZ Facility:[facility] Start: 02-13-2022 End: 02-14-[address] ROMULO ALVAREZ Facility:[facility] Start: 01-26-2022 End: 01-27-[address] ROMULO ALVAREZ Facility:[facility] Start: 01-16-2022 End: 01-16-[address] ROMULO ALVAREZ Facility:[facility] Start: 01-09-2022 End: 01-10-[address] ROMULO ALVAREZ Facility:[facility] Start: 10-18-2021 End: 10-19-[address] ROMULO ALVAREZ Facility:[facility] Start: 09-13-2021 End: 09-13-2021 ambulatory Ghislaine Ada Other [employer] Other Start: 09-13-2021 Telephone encounter Ghislaine Ada [facility] Start: 09-01-2021 End: 09-01-2021 ambulatory Ghislaine Ada Other [employer] Other Start: 09-01-2021 Office outpatient vi sit 25 minutes Ghislaine Ada [facility] Start: 09-01-2021 Telephone encounter Ghislaine Ada [facility] Start: 08-22-2021 End: 08-22-2021 ambulatory Ghislaine Ada Other [employer] Other Start: 08-22-2021 Telephone encounter Ghislaine Ada [facility] Start: 08-15-2021 End: 08-15-2021 ambulatory Ghislaine Ada Other [employer] Other Start: 08-15-2021 Telephone encounter Ghislaine Ada [facility] Start: 05-24-2021 End: 05-24-2021 ambulatory Ghislaine Ada Other [employer] Other Start: 05-24-2021 Telephone encounter Ghislaine Ada [facility] Start: 02-21-2021 End: 02-21-2021 ambulatory Ghislaine Ada Other [employer] Other Start: 02-21-2021 Telephone encounter Ghislaine Ada [facility] Start: 02-11-2021 End: 02-11-2021 ambulatory Ghislaine Ada Other [employer] Other Start: 02-11-2021 Telephone encounter Ghislaine Ada [facility] Start: 02-10-2021 End: 02-10-2021 ambulatory Ghislaine Ada Other [employer] Other Start: 02-10-2021 Office outpatient vi sit 25 minutes Ghislaine Ada [facility] Start: 07-20-2020 End: 07-21-2020 Patient encounter procedure ROMULO ALVAREZ [facility] Start: 10-11-2017 End: 10-12-2017 Patient encounter Bakari Berg Facility:[facility] Procedures Date Procedure Procedure Detail Performing Clinician Start: 05-06-2024 MM TOMOSYNTHESIS SCR EENING BI Romulo Alvarez MD Work Phone: Start: 05-06-2024 MLR HEMOGLOBIN A1C Romulo Alvarez MD Work Phone: Start: 05-06-2024 Mammography Romulo blevins MD Work Phone: Start: 01-11-2024 HP CBC WITH PLATEL ET NO DIFFERENTIAL Generic External Data Provider Start: 03-26-2023 Mammography Romulo blevins MD Work Phone: Start: 07-26-2022 Colonoscopy Romulo blevins MD Work Phone: Plan of Treatment Date Care Activity Detail Author Start: 07-26-2032 Screening for malignant neoplasm of colon [facility] Start: 07-27-2027 Screening for malignant neoplasm of colon Colonoscopy [facility] Start: 05-06-2025 Screening for malignant neoplasm of breast Mammogram [facility] Start: 02-27-2025 Medicare Annual Wellness (AWV) Medicare Annual Wellness (AWV) [facility] Start: 09-26-2024 Urine screening for protein Diabetes: Urine Protein Screening [facility] Start: 09-18-2024 Adult BMI Screening Adult BMI Screen ing [facility] Start: 09-18-2024 Glaucoma screening Diabetes: R etinopathy Screening [facility] Start: 09-18-2024 Tobacco Screening Tobacco Screening [facility] Start: 08-28-2024 End: 08-28-2024 Patient encounter procedure 08/28/2024 1:15 PM EDT Office Visit [facility] [address] [place] [address] Romulo Alvarez MD [address] [place] [address] [facility] Start: 06-24-2024 End: 06-24-2024 Patient encounter procedure 06/24/2024 9:30 AM EDT Office Visit [facility] [address] [place] [id number] Jr. Brock Kumar, DO [address] [facility] [address] [place] [address] [facility] Start: 06-09-2024 End: 06-09-2024 Patient encounter procedure 06/09/2024 9:00 AM EST Office Visit [facility] [address] [place] [phone] Jr. Brock Kumar, DO [address] [place] [address] [facility] Start: 05-13-2024 End: 05-13-2024 Patient encounter procedure 05/13/2024 9:30 AM EST Procedure Visit [facility] [address] [place] [phone] Vianey Melton, DPM [address] [place] [address] [facility] Start: 03-26-2024 Screening for malignant neoplasm of breast Mammogram [facility] Start: 03-20-2024 Hemoglobin A1c measurement Diabetes: Hemoglobin A1C [facility] Start: 02-28-2024 End: 02-27-2025 Basic metabolic 1998 panel - Serum or Plasma Basic metabolic panel Lab Routine CKD stage 3a, GFR 45-59 ml/min ([facility]) Encounter for long-term current use of medication Expected: 02/28/2024 (Approximate), Expires: 02/27/2025 [facility] Comment on above: Expected: 02/28/2024 (Approximate), Expires: 02/27/2025 Start: 02-28-2024 End: 02-27-2025 Hemoglobin A1c/Hemoglobin.total in Blood Hemoglobin A1c Lab Routine Type 2 diabetes mellitus with hyperglycemia, without long-term current use of insulin ([facility]) Expected: 02/28/2024 (Approximate), Expires: 02/27/2025 [facility] Work Phone: Comment on above: Expected: 02/28/2024 (Approximate), Expires: 02/27/2025 Start: 02-28-2024 End: 02-27-2025 Lipid 1996 panel - Serum or Plasma Lipid panel Lab Routine Dyslipidemia ([facility]) Expected: 02/28/2024 (Approximate), Expires: 02/27/2025 [facility] Comment on above: Expected: 02/28/2024 (Approximate), Expires: 02/27/2025 Start: 02-28-2024 End: 04-29-2025 MG Breast - bilateral Screening Bilateral screening mammogram Imaging Routine Breast cancer screening by mammogram Expected: 02/28/2024, Expires: 04/29/2025 [facility] Comment on above: Expected: 02/28/2024 , Expires: 04/29/2025 Start: 02-28-2024 End: 02-28-2024 Patient encounter procedure [facility] Comment on above: Arrived Start: 01-14-2024 End: 01-14-2024 Patient encounter procedure 01/14/2024 2:45 PM EDT Office Visit [facility] [place] [address] Jr. Brock Kumar, DO [address] [facility] [address] [place] [address] [facility] Start: 01-10-2024 End: 01-10-2024 Patient encounter procedure [facility] Comment on above: Arrived Start: 12-20-2023 Hemoglobin A1c measurement Diabetes: Hemoglobin A1C [facility] Start: 12-11-2023 End: 12-10-2024 Bacteria identified in Urine by Culture Urine culture (clean catch) Microbiology Routine Recurrent UTI Expected: 12/11/2023 (Approximate), Expires: 12/10/2024 [facility] Work Phone: Comment on above: Expected: 12/11/2023 (Approximate), Expires: 12/10/2024 Start: 12-11-2023 End: 12-10-2024 Urinalysis complete panel - Urine Urinalysis with reflex microscopic (clean catch) Lab Routine Recurrent UTI Expected: 12/11/2023 (Approximate), Expires: 12/10/2024 [facility] Comment on above: Expected: 12/11/2023 (Approximate), Expires: 12/10/2024 Start: 12-09-2023 Influenza vaccination [facility] Start: 10-16-2023 End: 10-16-2023 Admission to same day surgery center 10/16/2023 10:45 AM EDT - 10/16/2023 2:00 PM EDT Surgery [facility] - Surgery [address] [place] [address] Brock Kumar Jr., DO [address] [facility] [address] [place] [address] REPLACEMENT TOTAL JOINT HIP [42580 (CPT )] [facility] Comment on above: REPLACEMENT TOTAL SAL INT HIP [47836 (CPT )] Start: 10-16-2023 End: 10-16-2023 Arthrp acetblr/prox fem prostc agrft/algrft REPLACEMENT TOTAL JOINT HIP DJD L hip 10/16/2023 10:45 AM EDT [facility] Start: 10-16-2023 Subsequent hospital visit by physician 10/16/2023 10:45 AM EDT Hospital Encounter [facility] Surgery [address] [place] [phone] Brock Kumar Jr., DO [address] [place] [address] [facility] Start: 10-08-2023 End: 09-17-2024 Crossmatch RBC Crossmatch RBC Blood Bank Routine Preop examination Hypertension, unspecified type Type 2 diabetes mellitus without complication, without long-term current use of insulin ([facility]) Urinary frequency Former smoker Osteoarthritis of left hip, unspecified osteoarthritis type Expected: 10/08/2023, Expires: 09/17/2024 [facility] Comment on above: Expected: 10/08/2023 , Expires: 09/17/2024 Start: 09-19-2023 End: 09-17-2024 XR Femur and Tibia Views for leg length [facility] Comment on above: Expected: 09/19/2023 (Approximate), Expires: 09/17/2024 Start: 12-08-2022 COVID-19 Vaccine ( season) COVID-19 Vaccine ( season) [facility] Start: 2018 Fall Risk Screening Fall Risk Screen ing [facility] Start: 1972 DTaP,Tdap and Td Vaccines (1 - Tdap) DTaP,Tdap and Td Vaccines (1 - Tdap) [facility] Start: 1972 Urine screening for protein Diabetes: Urine Protein Screening [facility] Start: 10-25-1971 Adult BMI Follow Up Plan Adult BMI Follow Up Plan [facility] Start: 10-25-1971 Diabetic foot examination Diabetic Foot Exam [facility] Start: 1965 Depression Screening Depression Scre ening [facility] Start: 10-25-1963 Glaucoma screening Diabetes: R etinopathy Screening [facility] Start: 10-25-1959 Pneumococcal Vaccine : 65+ Years (1 of 2 - PCV) Pneumococcal Vaccine: 65+ Years (1 of 2 - PCV) [facility] Start: 1953 Glaucoma screening Diabetic Op hthalmology Exam [facility] Start: 1953 Medicare Annual Wellness (AWV) Medicare Annual Wellness (AWV) [facility] Start: 1953 Medicare Annual Wellness Visit Medicare Annual Wellness Visit [facility] Start: 1953 Screening for malignant neoplasm of colon [facility] Start: 1953 Urine screening for protein Urine Microalbumin [facility] Renal function 2000 panel - Serum or Plasma [facility] End: 09-17-2024 Type and screen(includes indirect raysa) Type and screen(includes indirect raysa) Blood Bank Routine Preop examination Hypertension, unspecified type Type 2 diabetes mellitus without complication, without long-term current use of insulin ([facility]) Urinary frequency Former smoker Osteoarthritis of left hip, unspecified osteoarthritis type 1 Occurrences starting 09/18/2023 until 09/17/2024 [employer] Work Phone: Comment on above: 1 Occurrences starti ng 09/18/2023 until 09/17/2024 [facility] Payers Date Payer Category Payer Medicare (Managed Care) [facility] [id number] 2021 Unknown [id number]. [id number] 2020 Private Health Insurance [id number] 2020 Unknown [id number] 2.16.840.1.194960.19 2017 Private Health Insurance [id number] 1959 Self-pay 1953 Unknown [id number] 2.16.840.1.945942.3.579.2. 173 1953 Unknown [id number] 2.16.840.1.035751.3.579.2. 593 1953 Unknown [id number] 2.16.840.1.763922.3.579.2. 593 1953 Unknown [id number] 2.16.840.1.067364.3.579.2. 593 1953 Unknown [id number] 2.16.840.1.372030.3.579.2. 593 1953 Unknown [id number] 2.16.840.1.230990.3.579.2. 593 1953 Unknown [id number] 2.16.840.1.276402.3.579.2. 593 1953 Unknown [id number] 2.16.840.1.424240.3.579.2. 593 1953 Unknown [id number] 2.16.840.1.488229.3.579.2. 593 1953 Unknown [id number] 2.16.840.1.440797.3.579.2. 593 1953 Unknown [id number] 2.16.840.1.690586.3.579.2. 593 1953 Unknown [id number] 2.16.840.1.439549.3.579.2. 593 1953 Unknown [id number] 2.16.840.1.514418.3.579.2. 1286 1953 Unknown [id number] 2.16.840.1.492538.3.579.2. 1286 1953 Unknown [id number] 2.16.840.1.014225.3.579.2. 1286 [birth year]1954 Unknown [id number] 2.16.840.1.309680.3.579.2. 1285 1953 Unknown [id number] 2.16.840.1.923308.3.579.2. 1285 1953 Unknown [id number] 2.16.840.1.778779.3.579.2. 1285 1953 Unknown [id number] 2.16.840.1.796433.3.579.2. 1258 1953 Unknown [id number] 2.16.840.1.976945.3.579.2. 1258 1953 Unknown [id number] 2.16.840.1.623452.3.579.2. 1258 1953 Unknown [id number] 2.840.1.793388.3.579.2. 1258 1953 Unknown [id number] 2.16.840.1.612821.3.579.2. 1258 1953 Unknown [id number] 2.16.840.1.630084.3.579.2. 1258 1953 Unknown [id number] 2.16.840.1.168455.3.579.2. 1258 1953 Unknown [id number] 2.16840.1.502785.3.579.2. 1258 1953 Unknown [id number] 2.16.840.1.545790.3.579.2. 1258 1953 Unknown [id number] 2.16.840.1.955999.3.579.2. 1258 1953 Unknown [id number] 2.16.840.1.264348.3.579.2. 1258 1953 Unknown [id number] 2.16.840.1.619373.3.579.2. 1258 1953 Unknown [id number] 2.16.840.1.504222.3.579.2. 1259 1953 Unknown [id number] 2.16.840.1.113100.3.579.2. 1259 1953 Unknown [id number] 2.16.840.1.635897.3.579.2. 1259 1953 Unknown [id number] 2.16.840.1.286213.3.579.2. 1259 Medicare [id number] 2.16.840.1.121071.19 Unknown [id number] 2.16.840.1.882884.3.579.2. 593 Social History Date Type Detail Facility Unknown if ever smoked [employer] Other Start: 12-11-2023 End: 02-28-2024 Sex Assigned At [employer] Other Start: 09-19-2023 End: 10-18-2023 Tobacco smoking status KYIS Ex-smoker [facility] End: 04-09-1977 History of tobacco use Current smoker [facility] End: 04-09-1977 History of tobacco use Cigarette Smoker [facility] History of tobacco use Passive smoker [facility] Start: 09-19-2023 End: 10-18-2023 Tobacco use and exposure Smokeless tobacco non-user [facility] Start: 12-11-2023 End: 02-28-2024 Alcoholic beverage intake Ex-drinker (finding) [facility] Start: 12-11-2023 End: 02-28-2024 History of Social function [facility] Start: 12-19-2022 Tobacco Comment Smoked for 2 years N [facility] Start: 1955 Sex assigned at Not on file N [facility] Start: 01-31-2024 Tobacco smoking stat us [facility] Never smoked tobacco (finding) [facility] Start: 1955 Sex Assigned At Female F [facility] Start: 09-19-2023 Alcoholic beverage intake Current non-drinker of alcohol (finding) [facility] Childcare Unknown [facility] Clinical Notes 12-27-2016 to 06-04-2024 Telephone Encounter - Romulo Alvarez MD - 06/04/2024 12:19 PM ESTTelephone Encounter - Romulo Alvarez MD - 06/04/2024 12:19 PM ESTRomulo Alvarez MD - 02/28/2024 1:48 PM ESTPatient Instructions Note Date & Type Note Facility 06-04-2024 Telephone encounter Note [facility] 06-04-2024 Miscellaneous Notes documented in this encounter [facility] 02-28-2024 History of Present illness Narrative Associated Problem(s): Medicare annual wellness visit, subsequent Due for labs. Discussed proper diet and regular aerobic exercise. Need aerobic exercise 5-6 days a week for 30 minutes at a time. Smaller portions and limit total calories. Colonoscopy every 10 years. Tetanus every 10 years. Advised not to smoke. Discussed daily Aspirin therapy. Images from the original note were not included. Subjective Patient ID: Doug Reed is a 68 y.o. female who presents for Medicare Annual Wellness Visit Subsequent (Wellness/). Presents for medicare annual wellness visit. Patient feels well today. Weight unchanged over the past year. Not active and not walking well due to arthritis. Tries to watch diet and eat healthy. Increased fruits and vegetables. Smaller portions and limits snacking. Tries to limit total daily calories. Due for labs. BS controlled 96-153 but average around 120. Tries to stick to ADA diet and limit carbs. Review of Systems Respiratory: Negative for cough, shortness of breath and wheezing. Cardiovascular: Negative for chest pain and palpitations. Gastrointestinal: Negative for abdominal pain, diarrhea, nausea and vomiting. Genitourinary: Negative for dysuria. Objective Physical Exam Constitutional: General: She is not in acute distress. Appearance: Normal appearance. HENT: Head: Normocephalic. Right Ear: Tympanic membrane normal. Left Ear: Tympanic membrane normal. Eyes: Extraocular Movements: Extraocular movements intact. Pupils: Pupils are equal, round, and reactive to light. Cardiovascular: Rate and Rhythm: Normal rate and regular rhythm. Heart sounds: No murmur heard. No friction rub. No gallop. Pulmonary: Effort: Pulmonary effort is normal. Breath sounds: Normal breath sounds. No wheezing, rhonchi or rales. Abdominal: General: Bowel sounds are normal. There is no distension. Palpations: Abdomen is soft. Tenderness: There is no abdominal tenderness. There is no guarding or rebound. Musculoskeletal: General: No swelling or tenderness. Cervical back: Neck supple. Right lower leg: No edema. Left lower leg: No edema. Skin: Findings: No erythema or rash. Neurological: General: No focal deficit present. Mental Status: She is alert and oriented to person, place, and time. Cranial Nerves: No cranial nerve deficit. Motor: No weakness. Gait: Gait normal. Assessment/Plan Problem List Items Addressed This Visit CKD stage 3a, GFR 45-59 ml/min ([facility]) Relevant Orders Basic metabolic panel Dyslipidemia ([facility]) Relevant Orders Lipid panel Type 2 diabetes mellitus with hyperglycemia, without long-term current use of insulin ([facility]) Relevant Orders Hemoglobin A1c Benign essential hypertension ([facility]) Medicare annual wellness visit, subsequent - Primary Due for labs. Discussed proper diet and regular aerobic exercise. Need aerobic exercise 5-6 days a week for 30 minutes at a time. Smaller portions and limit total calories. Colonoscopy every 10 years. Tetanus every 10 years. Advised not to smoke. Discussed daily Aspirin therapy. Encounter for long-term current use of medication Relevant Orders Basic metabolic panel Other Visit Diagnoses Breast cancer screening by mammogram Relevant Orders Bilateral screening mammogram documented in this encounter [facility] 02-13-2024 Telephone encounter Note [facility] 02-13-2024 Miscellaneous Notes documented in this encounter [facility] 01-14-2024 History of Present illness Narrative HISTORY OF PRESENT ILLNESS: EST PT Doug Reed is an 68 y.o. @ female. EST RECHECK LT HIP PAIN FOR YRS- POSSIBLY DISCUSS SURGERY TODAY - PT WAS PREVIOUSLY SCHEDULED FOR SURGERY AND CX AFTER PT WAS ADMITTED - PT WANTS TO WAIT UNTIL 06/2024 HX PELVIC FRACTURE 2021 PER PT (TX @ [facility]) XRAY PELVIS/LT HIP CHANGE 08/01/23 XRAY 07/05/23 [facility] NO MDP/PREDNISONE NO CORTISONE INJ PT @ [facility] PA[facility] MANAGEMENT CONTINUES TO HAVE HIP PAIN- USES WALKER TO AMBULATE- SOME GROIN PAIN- SOME THIGH PAIN - LIMITED ROM +OXYCODONE PER DR ALVAREZ ALLERGIES: No Known Allergies HOME MEDICATIONS: Current Outpatient Medications Medication Instructions alendronate (FOSAMAX) 70 mg, Oral, Every 7 days, Take in the morning with a full glass of water, on an empty stomach, and do not take anything else by mouth or lie down for the next 30 min. aspirin 81 mg, Oral, Daily atorvastatin (LIPITOR) 10 mg, Oral, Daily Calcium Carb-Cholecalciferol 600-10 MG-MCG tablet 1 tablet, Oral, 2 times daily calcium carbonate EX (TUMS EXTRA STRENGTH) 750 mg, Oral, Daily cholecalciferol (VITAMIN D-3) 25 mcg, Oral, Daily empagliflozin (JARDIANCE) 10 mg, Oral, Daily ferrous sulfate 325 mg, Oral, Daily with breakfast FLUoxetine (PROZAC) 10 mg, Oral, Daily hydrOXYzine HCl (ATARAX) 10 mg, Oral, Every 8 hours PRN magnesium oxide (MAG-OX) 400 mg, Daily metFORMIN (GLUCOPHAGE) 500 mg, Oral, 2 times daily with meals metoprolol tartrate (LOPRESSOR) 50 mg, Oral, 2 times daily oxyCODONE-acetaminophen (Percocet) 10-325 MG tablet 1 tablet, Oral, 4 times daily PRN senna-docusate sodium (Senokot-S) 8.6-50 MG tablet 1 tablet, Oral, Daily PHYSICAL EXAM: Hip Musculoskeletal Exam Gait Antalgic: left Limp: left Trendelenburg: left Abductor lurch: left Circumduction: left Assistive device: walker Inspection Leg length disparity: right greater than left Left Erythema: none Ecchymosis: none Edema: none Deformity: none Previous incision: no previous incision Palpation Left Increased warmth: none Tenderness: present Greater trochanteric region pain: mild Pubic rami pain: mild Lower lumbar region pain: mild Range of Motion Left Active ROM: abnormal and pain. Active ROM comment: NO IR OR ER , HIP flexion 80 degrees.. Passive ROM: abnormal and pain. Active extension: 10. Passive extension: 5. Active flexion: 40. Passive flexion: 40. Active internal rotation: 5. Passive internal rotation: 10. Active external rotation: 10. Passive external rotation: 15. Active adduction: 10. Passive adduction: 15. Active abduction: 10. Passive abduction: 15. Range of motion additional comments: Terminal motion on IR and ER limited by pain. Strength Left Left hip strength is normal. Extension: 5/5. Flexion: 4+/5. Flexion is affected by pain. Internal rotation: 5/5. External rotation: 5/5. Adduction: 5/5. Abduction: 4+/5. Abduction is affected by pain. Neurovascular Left Left hip neurovascular exam is normal. Sensation: sural, saphenous, tibial, superficial peroneal and deep peroneal Dorsalis pedis: 2+ Pulses - PT: normal Posterior tibial: 2+ Special Tests Left Log roll test: positive Impingement test: positive Trendelenburg test: positive Internal rotation: positive External rotation: positive Vitals: There is no height or weight on file to calculate BMI. Tobacco Use: Medium Risk (01/14/2024) Patient History Smoking Tobacco Use: Former Smokeless Tobacco Use: Never Passive Exposure: Past Alcohol Use: Not At Risk (07/20/2020) Received from [facility] Frequency of Alcohol Consumption: Never Average Number of Drinks: Not asked Frequency of Binge Drinking: Never IMAGING: Procedures No orders of the defined types were placed in this encounter. ASSESSMENT: ICD-10-CM 1. Primary osteoarthritis of left hip M16.12 PLAN: We have answered all the patients questions and explained the patients condition, decision making and plan including the risks and benefits associated with said plan in layman''s terms in a language the patient could understand easily. If patient''s symptoms significantly worsen and they cannot get a hold of us or their family physician, we have recommended that the patient proceed to the nearest emergency department (room). Dr. Kumar obtained history and examined the patient, I am acting as scribe for Dr. Kumar/tanmay, PLAN: We have reviewed prior (L) hip xrays. After examination of her left hip today we have discussed both surgical and nonsurgical intervention, with the risks and benefits of both. Patient is refusing to proceed with a (L) ARVIN at this time as she would like to wait until spring 2023, verbally understanding and accepting the risks / benefits of holding off on sx. We have discussed her HEP and restrictions and will see her back in June 2024 once winter has passed to reassess her left hip, if exam warrants we may recommend proceeding with a (L) ARVIN. Brock Kumar D.O. documented in this encounter [facility] 01-14-2024 Telephone encounter Note [facility] 01-14-2024 Miscellaneous Notes documented in this encounter [facility] 01-10-2024 History of Present illness Narrative Images from the original note were not included. Subjective Patient ID: Doug Reed is a 68 y.o. female who presents for DM Foot Care (Pt presents today for diabetic foot care, she states since her LV she has been dealing with some medical issues. Her Rt 3rd toenail is very thick, fungal and long it got caught in the bed and broke /BS: 112 A1C: 6.2/LV Dr. Alvarez 12-11-2023/SS: 9.5). HPI Established patient returns requesting nail debridement. She states her nails are very thick, elongated, fungal. She was admitted to the hospital in early December for a few days due to UTI and sepsis. She states she is feeling better now, has returned home. She is planning on having a hip replacement in the next few weeks. Review of Systems Medications Current Outpatient Medications: alendronate (Fosamax) 70 MG tablet, Take 1 tablet (70 mg) by mouth every 7 (seven) days Take in the morning with a full glass of water, on an empty stomach, and do not take anything else by mouth or lie down for the next 30 min., Disp: 12 tablet, Rfl: 3 aspirin 81 MG EC tablet, Take 81 mg by mouth in the morning., Disp: , Rfl: atorvastatin (Lipitor) 10 MG tablet, Take 1 tablet (10 mg) by mouth Daily, Disp: 30 tablet, Rfl: 11 Calcium Carb-Cholecalciferol 600-10 MG-MCG tablet, TAKE 1 TABLET BY MOUTH TWICE DAILY, Disp: 180 tablet, Rfl: 5 calcium carbonate EX (Tums Extra Strength) 750 MG chewable tablet, Chew 750 mg Daily, Disp: , Rfl: cholecalciferol (Vitamin D-3) 25 MCG tablet, Take 25 mcg by mouth in the morning., Disp: , Rfl: empagliflozin (Jardiance) 10 MG, Take 1 tablet (10 mg) by mouth Daily, Disp: 30 tablet, Rfl: 5 ferrous sulfate 325 (65 Fe) MG tablet, Take 325 mg by mouth in the morning. Take with meals., Disp: , Rfl: FLUoxetine (PROzac) 10 MG capsule, Take 1 capsule (10 mg) by mouth Daily, Disp: 30 capsule, Rfl: 2 hydrOXYzine HCl (Atarax) 10 MG tablet, Take 1 tablet (10 mg) by mouth every 8 (eight) hours if needed for anxiety, Disp: 90 tablet, Rfl: 2 magnesium oxide (Mag-Ox) 400 mg tablet, 400 mg in the morning., Disp: , Rfl: metFORMIN (Glucophage) 500 MG tablet, Take 1 tablet (500 mg) by mouth in the morning and 1 tablet (500 mg) in the evening. Take with meals., Disp: 200 tablet, Rfl: 3 metoprolol tartrate (Lopressor) 50 MG tablet, TAKE 1 TABLET BY MOUTH TWICE DAILY, Disp: 180 tablet, Rfl: 3 oxyCODONE-acetaminophen (Percocet) 10-325 MG tablet, Take 1 tablet by mouth 4 (four) times a day as needed for severe pain, Disp: 120 tablet, Rfl: 0 senna-docusate sodium (Senokot-S) 8.6-50 MG tablet, Take 1 tablet by mouth in the morning., Disp: , Rfl: Allergies Patient has no known allergies. Past Surgical History Past Surgical History: Procedure Laterality Date COLONOSCOPY TONSILLECTOMY Family History Family History Problem Relation Name Age of Onset Diabetes Maternal Grandfather Objective Physical Exam Cardiovascular: Comments: Pedal pulses: DP 2/4 bilateral, PT 2/4 bilateral. Skin temp is warm to warm. Varicosities: absent Hair growth: present Pulmonary: Effort: Pulmonary effort is normal. Musculoskeletal: General: No tenderness. Right lower leg: No edema. Left lower leg: No edema. Comments: FOOT MORPHOLOGY: normal rectus. JOINT RANGE OF MOTION: ankle joint and subtalar joint ROM are normal and pain free. DEFORMITIES:Lesser toe digital contracture especially the second and third contracted the MPJ PIPJ. Increased pressure noted between toes 1 and 2 due to deformity. PAIN: pain with debridement of nails. MUSCLE STRENGTH: 4/5 for dorsiflexion, plantarflexion, inversion, eversion. Feet: Comments: Date of last diabetic foot exam: 06/19/2023 Skin: General: Skin is warm. Capillary Refill: Capillary refill takes 2 to 3 seconds. Findings: No bruising or erythema. Comments: SKIN FINDINGS:Skin is dry. Some peeling noted, decrease in skin turgor. web spaces are clean and dry. No erythema or ecchymosis noted. HYPERKERATOSIS: none. NAIL PATHOLOGY:R hallux nail medially is 5mm thick, yellow and brown, fungal, crumbly. Nail 1 L is 5mm thick, orange and yellow, dystrophic, elongated, Nail 3 R and 5 R are discolored, 4mm thick, fungal, elongated. ULCER: no sign of ulceration or open wound . SKIN PATHOLOGY: texture, turgor, hair growth, within normal limits. Neurological: Mental Status: She is alert and oriented to person, place, and time. Comments: Light touch sensation intact VIBRATORY: Diminished at IPJ and MPJ, medial malleolus and patella b/l. SEMMES-NADJA 5.07 MONOFILAMENT: intact at 10/10 sites. Psychiatric: Mood and Affect: Mood normal. Behavior: Behavior normal. [id number] Assessment/Plan ICD-10-CM 1. Nail dystrophy L60.3 2. Onychomycosis B35.1 3. Type II or unspecified type diabetes mellitus with neurological manifestations, not stated as uncontrolled(250.60) (CMS/HCC) E11.49 4. Pain in toes of both feet M79.674 M79.675 Conservative and palliative care implemented as per request. Under aseptic technique all nails debrided with large and small nail nippers, curette and power vaibhav. Onychodebridement in length and thickness with the goals of relief of pain, reducing risks of infection, ulceration or pain. Well tolerated and expresses appreciation for care given. Feet inspected and hygiene discussed This note was created with the assistance of a speech recognition program. While intending to generate a timely document that accurately reflects the content of the visit, no guarantee can be provided that every grammatical or spelling mistake has been or will be identified or corrected. Thank you for your understanding. Vianey Melton DPM documented in this encounter [facility] 12-28-2023 Telephone encounter Note Patient called in to check if we received her blood work that ordered. I seen the previous message about getting her schedule and she did not want to schedule. Patient would like 's nurse to give her a call. Please advise [phone]. [facility] 12-28-2023 Miscellaneous Notes Patient called in to check if we received her blood work that ordered. I seen the previous message about getting her schedule and she did not want to schedule. Patient would like 's nurse to give her a call. Please advise [phone]. Dr Alvarez's office called asking if we needed anything more from them regarding her surgery? Vianey said that Dr. Kumar would like to see her again to discuss going forward with surgery again. I called patient and was unable to leave a message. documented in this encounter [facility] 12-14-[address] Alvarez's office called asking if we needed anything more from them regarding her surgery? Vianey said that Dr. Kumar would like to see her again to discuss going forward with surgery again. I called patient and was unable to leave a message. [facility] 12-11-2023 History of Present illness Narrative Associated Problem(s): Preoperative clearance Able to proceed with upcoming surgery at low risk for complications. History of DM and HTN but controlled with medication. No history of CAD. Not having chest pain or palpitations. Return to ortho. Associated Problem(s): DDD (degenerative disc disease), lumbar Pain stable and use percocet PRN. Associated Problem(s): Osteoarthritis of left hip Increased pain and follow with ortho. Associated Problem(s): Recurrent UTI Recent UTI and repeat culture. Associated Problem(s): Type 2 diabetes mellitus with chronic kidney disease, without long-term current use of insulin (HCC) (CMS/HCC) Add jardiance Associated Problem(s): Benign essential hypertension (CMS/HCC) BP remains controlled without losartan and monitor PRN. Associated Problem(s): Type 2 diabetes mellitus with hyperglycemia, without long-term current use of insulin ([facility]) BS controlled and last A1C 6.2. Stick to ADA diet and limit carbs. Images from the original note were not included. Subjective Patient ID: Doug Reed is a 68 y.o. female who presents for Follow-up (6m f/u). Follow up DM, HTN, OA hip, and back pain. Patient doing well today. Admitted in October with UTI and sepsis. Previously scheduled for hip replacement but postponed due to hospitalization. Feels well today. BS well controlled with range of 90-200 and average around 120. Tries to eat well and stick to ADA diet. Denies signs of elevated BS such as polyuria, polyphagia or polydipsia. Checking BP PRN and typically controlled. BP normal today. Taking medication daily and tolerating without side effects. OA hips unchanged. Popping, clicking and grinding. Stiff in am and hard to get up from sitting. Improved once up and moving. Back pain stable. Pain in low back and across top hips. No radiation into gluteal region or down legs. Pain increased with walking and standing. Using percocet PRN and medication helps control pain. Review of Systems Respiratory: Negative for cough, shortness of breath and wheezing. Cardiovascular: Negative for chest pain and palpitations. Gastrointestinal: Negative for abdominal pain, diarrhea, nausea and vomiting. Genitourinary: Negative for dysuria. Objective Physical Exam Constitutional: General: She is not in acute distress. Appearance: Normal appearance. HENT: Head: Normocephalic. Right Ear: Tympanic membrane normal. Left Ear: Tympanic membrane normal. Eyes: Extraocular Movements: Extraocular movements intact. Pupils: Pupils are equal, round, and reactive to light. Cardiovascular: Rate and Rhythm: Normal rate and regular rhythm. Heart sounds: No murmur heard. No friction rub. No gallop. Pulmonary: Effort: Pulmonary effort is normal. Breath sounds: Normal breath sounds. No wheezing, rhonchi or rales. Abdominal: General: Bowel sounds are normal. There is no distension. Palpations: Abdomen is soft. Tenderness: There is no abdominal tenderness. There is no guarding or rebound. Musculoskeletal: Cervical back: Neck supple. Right lower leg: No edema. Left lower leg: No edema. Neurological: Mental Status: She is alert. Assessment/Plan Problem List Items Addressed This Visit DDD (degenerative disc disease), lumbar Pain stable and use percocet PRN. Osteoarthritis of left hip Increased pain and follow with ortho. Stress, reaction gross Type 2 diabetes mellitus with hyperglycemia, without long-term current use of insulin ([facility]) - Primary BS controlled and last A1C 6.2. Stick to ADA diet and limit carbs. Type 2 diabetes mellitus with chronic kidney disease, without long-term current use of insulin (HCC) (CMS/[facility]) Add jardiance Relevant Medications empagliflozin (Jardiance) 10 MG Benign essential hypertension (CMS/[facility]) BP remains controlled without losartan and monitor PRN. Preoperative clearance Able to proceed with upcoming surgery at low risk for complications. History of DM and HTN but controlled with medication. No history of CAD. Not having chest pain or palpitations. Return to ortho. Recurrent UTI Recent UTI and repeat culture. Relevant Orders Urine culture (clean catch) Urinalysis with reflex microscopic (clean catch) documented in this encounter [facility] 09-22-2023 Note XR BONE LENGTH STUDY Bone [...] Kelly Mckeon MD on 09/22/2023 8:01 AM [facility] 09-19-2023 Instructions Gina Nicole RN - 09/19/2023 9:45 AM EDT Preoperative Education Checklist- General Surgery date: 10/16/23 Surgery time: 1045a Arrival time: 845a Please come back to the hospital between 10/08/23-10/15/23Sunday-Sunday 630a-430p for a blood draw. Stop at the registration desk upon arrival. The lab will give you a green blood band, bring that back with you day of surgery. 1. Bring a photo ID and your insurance card with you the day of surgery. You will check in at the main lobby of the [facility]- registration desk is straight ahead as soon as you walk in. Tell them you are here for surgery. 2. If you have a Living Will/Durable Power of Retail Sales Teammate for Health Care that is not on file here, please bring a copy the day of surgery. 3. Please shower/bathe the night before surgery with the provided soap or wipes. Do not shower the morning of surgery- you will do use wipes when you arrive here at the hospital before getting into your surgical gown. Do not shave the area of your procedure for 2 days prior to your surgery. 4. NO powder, lotion, perfume/cologne, aftershave, make-up, deodorant, or hair products after you have bathed. 5. NO nail syrian/acrylic on at least one finger. If you are having a hand, wrist or foot surgery then all nail syrian and artificial/acrylic nails must be removed from that hand or foot. 6. Avoid ALL Aspirin and non-steroidal anti-inflammatory drugs and certain vitamins (Ibuprofen, Advil, Aleve, Excedrin, Meloxicam, Celebrex, fish/krill oil, etc.) for 7 days prior to surgery as instructed by your surgeon and/or your prescribing doctor. Tylenol IS ALLOWED. If you are on Ticlid, Xarelto, Eliquis, Pradaxa, Plavix or Coumadin, please check with your prescribing doctor for instructions for when to stop them. 7. If you use an inhaler, continue to use it routinely. 8. Nothing to eat or drink (not even water, gum, mints, or hard candy!) AFTER midnight prior to your surgery. 9. Take only medications that you are instructed to on the morning of surgery with a TINY SIP OF WATER. 10. Choose a responsible adult that will be able to drive you home when you are discharged from your hospital stay for your surgery and can stay with you in your home for 24 hours after your procedure. You must NOT drive any vehicle or operate any machinery for 24 hours after surgery. 11. When you dress for your appointment, please wear loose fitting clothing that is appropriate to accommodate your surgical area procedure. BRING WITH YOU ANY DEVICES YOU MAY NEED: ROD hose, ice machine, sling/swath, brace or special shoe, oversized zip-up or button up shirt, CPAP machine if staying overnight. 12. Do NOT wear jewelry, watches, or any piercings or metal for surgery- leave these valuables and money at home. 13. Do NOT wear contact lenses for surgery- glasses are okay if needed. 14. The anesthesiologist will talk with you the day of surgery and will ask you to sign a Consent Form. 15. Refrain from smoking or any type of tobacco use for at least 8 hours and marijuana for 24 hours prior to arrival for your surgery. 16. If a GREEN BLOOD band is given to you, please bring it with you for the day of surgery. 17. Notify your surgeon if you develop any illness before your surgery. 18. If you are staying overnight, please DO NOT BRING your home medications with you. 19. If you have any questions prior to surgery, please call the Preadmission Testing office at [phone], Mon.-Fri. 7 a.m.-3 p.m. Leave a voicemail if needed. Pre-Surgery Instructions: Medication Instructions alendronate (FOSAMAX) 70 mg tablet Stop taking 0 days prior to procedure aspirin 81 mg Check with prescribing doctor for instructions atorvastatin (LIPITOR) 10 mg tablet Stop taking 0 days prior to procedure losartan-hydrochlorothiazide (HYZAAR) 100-25 mg per tablet Take morning of procedure magnesium oxide (MAGOX) 400 mg tablet Stop taking 0 days prior to procedure metFORMIN (GLUCOPHAGE) 500 mg tablet Stop taking 0 days prior to procedure metoprolol tartrate (LOPRESSOR) 50 mg tablet Take morning of procedure oxyCODONE-acetaminophen (PERCOCET) 10-325 mg per tablet Stop taking 0 days prior to procedure sennosides-docusate sodium (SENNA WITH DOCUSATE SODIUM) 8.6-50 mg Stop taking 0 days prior to procedure ferrous sulfate 325 (65 FE) mg tablet Stop taking 0 days prior to procedure multivit-min/iron/FA/vit K/lut (CENTRUM SILVER WOMEN ORAL) Stop taking 0 days prior to procedure How to Avoid an Infection after Your Surgery Your doctor will give you specific instructions, but remember: -ALWAYS wash hands before caring for your incision. -No picking, scratching, or rubbing your incision. -No creams, lotion, powder, rubbing alcohol or hydrogen peroxide on the incision (can harm the tissue and slow healing). -Your doctor will give you specific instructions for what type of dressing you will need and how often it will need changed for infection purposes. -No tight clothing on incision. -Do not allow anyone to touch your incision unless they are cleaning, checking, or redressing it (be sure they wash their hands first). -No contact of your incision with pets; avoid sleeping with pets. -Take full course of antibiotic if prescribed for you after surgery- do not stop unless directed to by your physician. You may also be given an antibiotic prior to your surgery to help prevent surgical site infections. -Eat a healthy and varied diet including proteins, fruits, and vegetables to help promote wound healing and keep blood sugars under control if you are diabetic. -Smoking slows the healing process by decreasing the amount of oxygen in your blood that is needed for tissue healing. Try to avoid or stop smoking if possible. LOOK at your incision each morning and each night to check the progress of healing. Some soreness, numbness, itching and/or mild bruising around the incision is normal. Call your doctor if you notice any of the following: -Increased redness or hardening around the incision area. -Increased pain at the incision site. -Incision feels hot to the touch. -Swelling or pulling apart of the incision edges. -Yellow or green drainage or foul odor coming from the incision. -Bleeding from the incision (apply pressure as needed). -Fever higher than 101 degrees Fahrenheit for more than 4 hours. SHOWERING: Your doctor will give you specific instructions, but remember: -Be careful getting into and out of the shower. -Showers should be quick (5 minutes or less). -Use a clean washcloth to gently wash your incision with soap and water and pat the area dry with a clean towel. -No re-using wash cloths or towels; get a fresh one to clean your incision. -Do not soak in the bathtub, go swimming or use a hot tub (Jacuzzi), or perform activities where your incision is submerged in water or exposed to any fluids or substances until instructed by your doctor. -If your have the sticky strips (steri-strips) over the incision, it is OK to shower with them. Do not remove them. Let them fall off on their own. If you have a question, call your doctor s office. Go to the follow-up appointment with your doctor. documented in this encounter [facility] 04-05-2023 Evaluation note Encounter Date Diagnosis Assessment [...] monitor LFTs and lipid profile with PCP [employer] Other 06-01-2023 Evaluation note* Encounter Date Diagnosis [...] monitor LFTs and lipid profile with PCP [employer] Other 05-12-2023 NotePROCEDURE: XR KNEE LT 3V HISTORY: Pain of joint of knee ; acute left knee pain COMPARISON: None. FINDINGS: BONES:No fracture, acute abnormality, or significant arthropathy. SOFT TISSUES:No visible soft tissue swelling. EFFUSION:None visible. OTHER: Negative. IMPRESSION: 1. No appreciable acute abnormality or significant degenerative joint disease. Electronically authenticated by: PEGGY CORTEZ Date: 2022-08-18 12:27[facility]12-15-2022 Evaluation note* Encounter Date Diagnosis Assessment [...] within the goal. Continue oral vitamin D [employer] Other 07-12-2022 NotePROCEDURE: XR PELVIS W_OBL MIN [...] Electronically authenticated by: CONNIE LICEA Date: 2021-10-18 19:13[facility]05-26-2022 Evaluation note* Encounter Date Diagnosis Assessment [...] within the goal. Continue oral vitamin D [employer] Other 05-26-2022 Evaluation note* Encounter Date Diagnosis Assessment Notes Treatment Notes Treatment Clinical Notes August, Type 2 diabetes mellitus with diabetic chronic kidney disease (ICD-10 - E11.22) [employer] Other 11-04-2021 Evaluation note* Encounter Date Diagnosis [...] the goal and Vit D is normal. [employer] Other 09-20-2017 History general Narrative - Reported* Type Description Date Medical History diabetes mellitus Medical History hypertension Medical History hyperlipidemia Surgical History COLONOSCOPY NORMAL P ER PATIENT AT [facility] 12-27-2016 Hospitalization History [facility] [employer] Other 09-20-2017 History general Narrative - Reported* Type Description Date Medical History diabetes mellitus Medical History hypertension Medical History hyperlipidemia Surgical History COLONOSCOPY NORMAL P ER PATIENT AT [facility] 12-27-2016 Hospitalization History Dehydration 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 08/09/2021 [employer] Other 09-20-2017 History general Narrative - Reported* Type Description Date Medical History diabetes mellitus Medical History hypertension Medical History hyperlipidemia Surgical History COLONOSCOPY NORMAL P ER PATIENT AT [facility] 12-27-2016 Hospitalization History Dehydration 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, UTI, SEPSIS 08/09/2021 [employer] Other 09-20-2017 History general Narrative - Reported* Type Description Date Medical History diabetes mellitus Medical History hypertension Medical History hyperlipidemia Medical History OSTEOPOROSIS Surgical History COLONOSCOPY NORMAL P ER PATIENT AT [facility] 12-27-2016 Hospitalization History Dehydration 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, UTI, SEPSIS 08/09/2021 [employer] Other evaluation noteNo [employer] Other evaluation [employer] Other evaluation note* Diagnosis Nail dystrophy- Primary Other specified disease of nail Onychomycosis Dermatophytosis of nail Type II or unspecified type diabetes mellitus with neurological manifestations, not stated as uncontrolled(250.60) ([facility]) Type II or unspecified type diabetes mellitus with neurological manifestations, not stated as uncontrolled Pain in toes of both feet documented in this encounter [facility] HealthcareEvaluation note* Diagnosis Degeneration of intervertebral disc of lumbar region with discogenic back pain- Primary documented in this encounter [facility] HealthcareEvaluation note* Diagnosis Primary osteoarthritis of left hip- Primary documented in this encounter [facility] HealthcareEvaluation note* Diagnosis Onset Date Resolution Status CKD (chronic kidney disease) stage 3, GFR 30-59 ml/min acute Hyperlipidemia acute [id number] acute Secondary hyperparathyroidism acute Type 2 diabetes mellitus wit h diabetic chronic kidney disease acute [facility] Work Phone: Evaluation note* Diagnosis Type 2 diabetes mellitus with hyperglycemia, without long-term current use of insulin (CMS/[facility])- Primary Benign essential hypertension (CMS/[facility]) Essential hypertension, benign Primary osteoarthritis of left hip DDD (degenerative disc disease), lumbar Degeneration of lumbar or lumbosacral intervertebral disc Age-related osteoporosis without current pathological fracture (CMS/[facility]) Type 2 diabetes mellitus with stage 3b chronic kidney disease, without long-term current use of insulin (HCC) (CMS/[facility]) Stage 3b chronic kidney disease (CKD) (CMS/[facility]) Preoperative clearance- Primary Unspecified pre-operative examination Primary osteoarthritis of left hip Type 2 diabetes mellitus with hyperglycemia, without long-term current use of insulin (CMS/HCC) Benign essential hypertension (CMS/HCC) Essential hypertension, benign Type 2 diabetes mellitus with stage 3a chronic kidney disease, without long-term current use of insulin (HCC) (CMS/HCC) Chronic kidney disease, stage 3a (N18.31) Benign essential hypertension (CMS/HCC)- Primary Essential hypertension, benign KENZIE (generalized anxiety disorder) (CMS/[facility]) Generalized anxiety disorder Hospital discharge follow-up Other follow-up examination Type 2 diabetes mellitus with hyperglycemia, without long-term current use of insulin (CMS/HCC)- Primary Benign essential hypertension (CMS/HCC) Essential hypertension, benign Type 2 diabetes mellitus with stage 3a chronic kidney disease, without long-term current use of insulin (HCC) (CMS/HCC) Recurrent UTI Urinary tract infection, site not specified Primary osteoarthritis of left hip Stress, reaction gross Unspecified acute reaction to stress DDD (degenerative disc disease), lumbar Degeneration of lumbar or lumbosacral intervertebral disc Preoperative clearance Unspecified pre-operative examination Degeneration of intervertebral disc of lumbar region with discogenic back pain documented in this encounter [facility] HealthcareEvaluation note* Diagnosis Type 2 diabetes mellitus with hyperglycemia, without long-term current use of insulin (CMS/[facility])- Primary Benign essential hypertension (CMS/HCC) Essential hypertension, benign Primary osteoarthritis of left hip DDD (degenerative disc disease), lumbar Degeneration of lumbar or lumbosacral intervertebral disc Age-related osteoporosis without current pathological fracture (CMS/[facility]) Type 2 diabetes mellitus with stage 3b chronic kidney disease, without long-term current use of insulin (HCC) (CMS/HCC) Stage 3b chronic kidney disease (CKD) (CMS/[facility]) Preoperative clearance- Primary Unspecified pre-operative examination Primary osteoarthritis of left hip Type 2 diabetes mellitus with hyperglycemia, without long-term current use of insulin (CMS/HCC) Benign essential hypertension (CMS/HCC) Essential hypertension, benign Type 2 diabetes mellitus with stage 3a chronic kidney disease, without long-term current use of insulin (HCC) ([facility]) Chronic kidney disease, stage 3a (N18.31) Benign essential hypertension (CMS/HCC)- Primary Essential hypertension, benign KENZIE (generalized anxiety disorder) ([facility]) Generalized anxiety disorder Hospital discharge follow-up Other follow-up examination Type 2 diabetes mellitus with hyperglycemia, without long-term current use of insulin (CMS/HCC)- Primary Benign essential hypertension (CMS/HCC) Essential hypertension, benign Type 2 diabetes mellitus with stage 3a chronic kidney disease, without long-term current use of insulin (HCC) ([facility]) Recurrent UTI Urinary tract infection, site not specified Primary osteoarthritis of left hip Stress, reaction gross Unspecified acute reaction to stress DDD (degenerative disc disease), lumbar Degeneration of lumbar or lumbosacral intervertebral disc Preoperative clearance Unspecified pre-operative examination Medicare annual wellness visit, subsequent- Primary Type 2 diabetes mellitus with hyperglycemia, without long-term current use of insulin (CMS/HCC) Benign essential hypertension (CMS/HCC) Essential hypertension, benign CKD stage 3a, GFR 45-59 ml/min (CMS/[facility]) Dyslipidemia ([facility]) Other and unspecified hyperlipidemia Encounter for long-term current use of medication Breast cancer screening by mammogram documented in this encounter [facility] HealthcareEvaluation note* Diagnosis Type 2 diabetes mellitus with hyperglycemia, without long-term current use of insulin (CMS/HCC)- Primary Benign essential hypertension (CMS/HCC) Essential hypertension, benign Primary osteoarthritis of left hip DDD (degenerative disc disease), lumbar Degeneration of lumbar or lumbosacral intervertebral disc Age-related osteoporosis without current pathological fracture ([facility]) Type 2 diabetes mellitus with stage 3b chronic kidney disease, without long-term current use of insulin (HCC) ([facility]) Stage 3b chronic kidney disease (CKD) ([facility]) Preoperative clearance- Primary Unspecified pre-operative examination Primary osteoarthritis of left hip Type 2 diabetes mellitus with hyperglycemia, without long-term current use of insulin ([facility]) Benign essential hypertension ([facility]) Essential hypertension, benign Type 2 diabetes mellitus with stage 3a chronic kidney disease, without long-term current use of insulin (HCC) ([facility]) Chronic kidney disease, stage 3a (N18.31) Benign essential hypertension ([facility])- Primary Essential hypertension, benign KENZIE (generalized anxiety disorder) ([facility]) Generalized anxiety disorder Hospital discharge follow-up Other follow-up examination Type 2 diabetes mellitus with hyperglycemia, without long-term current use of insulin ([facility])- Primary Benign essential hypertension ([facility]) Essential hypertension, benign Type 2 diabetes mellitus with stage 3a chronic kidney disease, without long-term current use of insulin (HCC) ([facility]) Recurrent UTI Urinary tract infection, site not specified Primary osteoarthritis of left hip Stress, reaction gross Unspecified acute reaction to stress DDD (degenerative disc disease), lumbar Degeneration of lumbar or lumbosacral intervertebral disc Preoperative clearance Unspecified pre-operative examination Medicare annual wellness visit, subsequent- Primary Type 2 diabetes mellitus with hyperglycemia, without long-term current use of insulin ([facility]) Benign essential hypertension ([facility]) Essential hypertension, benign CKD stage 3a, GFR 45-59 ml/min ([facility]) Dyslipidemia ([facility]) Other and unspecified hyperlipidemia Encounter for long-term current use of medication Breast cancer screening by mammogram Degeneration of intervertebral disc of lumbar region with discogenic back pain documented in this encounter [facility] HealthcareEvaluation note* Diagnosis Type 2 diabetes mellitus with hyperglycemia, without long-term current use of insulin ([facility])- Primary Benign essential hypertension ([facility]/HCC) Essential hypertension, benign Type 2 diabetes mellitus with stage 3a chronic kidney disease, without long-term current use of insulin (HCC) ([facility]) Recurrent UTI Urinary tract infection, site not specified Primary osteoarthritis of left hip Stress, reaction gross Unspecified acute reaction to stress DDD (degenerative disc disease), lumbar Degeneration of lumbar or lumbosacral intervertebral disc Preoperative clearance Unspecified pre-operative examination documented in this encounter [facility] HealthcareEvaluation note* Diagnosis Essential (primary) hypertension (CMS/HCC) Unspecified essential hypertension Other intervertebral disc degeneration, lumbar region Age-related osteoporosis without current pathological fracture (CMS/HCC) documented in this encounter [facility] HealthcareEvaluation note* Diagnosis Type 2 diabetes mellitus with hyperglycemia, without long-term current use of insulin (CMS/HCC)- Primary Benign essential hypertension (CMS/HCC) Essential hypertension, benign Primary osteoarthritis of left hip DDD (degenerative disc disease), lumbar Degeneration of lumbar or lumbosacral intervertebral disc Age-related osteoporosis without current pathological fracture (CMS/HCC) Type 2 diabetes mellitus with stage 3b chronic kidney disease, without long-term current use of insulin (HCC) (CMS/HCC) Stage 3b chronic kidney disease (CKD) (CMS/HCC) Preoperative clearance- Primary Unspecified pre-operative examination Primary osteoarthritis of left hip Type 2 diabetes mellitus with hyperglycemia, without long-term current use of insulin (CMS/HCC) Benign essential hypertension (CMS/HCC) Essential hypertension, benign Type 2 diabetes mellitus with stage 3a chronic kidney disease, without long-term current use of insulin (HCC) (CMS/HCC) Chronic kidney disease, stage 3a (N18.31) Benign essential hypertension (CMS/HCC)- Primary Essential hypertension, benign KENZIE (generalized anxiety disorder) (CMS/HCC) Generalized anxiety disorder Hospital discharge follow-up Other follow-up examination Type 2 diabetes mellitus with hyperglycemia, without long-term current use of insulin (CMS/HCC)- Primary Benign essential hypertension (CMS/HCC) Essential hypertension, benign Type 2 diabetes mellitus with stage 3a chronic kidney disease, without long-term current use of insulin (HCC) (CMS/HCC) Recurrent UTI Urinary tract infection, site not specified Primary osteoarthritis of left hip Stress, reaction gross Unspecified acute reaction to stress DDD (degenerative disc disease), lumbar Degeneration of lumbar or lumbosacral intervertebral disc Preoperative clearance Unspecified pre-operative examination Medicare annual wellness visit, subsequent- Primary Type 2 diabetes mellitus with hyperglycemia, without long-term current use of insulin (CMS/HCC) Benign essential hypertension (CMS/HCC) Essential hypertension, benign CKD stage 3a, GFR 45-59 ml/min (CMS/HCC) Dyslipidemia (CMS/HCC) Other and unspecified hyperlipidemia Encounter for long-term current use of medication Breast cancer screening by mammogram Degeneration of intervertebral disc of lumbar region with discogenic back pain documented in this encounter [facility] HealthcareEvaluation note* Diagnosis Preop examination- Primary Unspecified pre-operative examination Hypertension, unspecified type Type 2 diabetes mellitus without complication, without long-term current use of insulin (CMS-HCC) Urinary frequency Former smoker Personal history of tobacco use, presenting hazards to health Osteoarthritis of left hip, unspecified osteoarthritis type Preop examination Unspecified pre-operative examination Hypertension, unspecified type Type 2 diabetes mellitus without complication, without long-term current use of insulin ([facility]-HCC) Urinary frequency Former smoker Personal history of tobacco use, presenting hazards to health Osteoarthritis of left hip, unspecified osteoarthritis type Preop examination Unspecified pre-operative examination Hypertension, unspecified type Type 2 diabetes mellitus without complication, without long-term current use of insulin ([facility]-HCC) Urinary frequency Former smoker Personal history of tobacco use, presenting hazards to health Osteoarthritis of left hip, unspecified osteoarthritis type documented in [facility] encounter [facility]* Diagnosis Type 2 diabetes mellitus with hyperglycemia, without long-term current use of insulin (CMS/HCC)- Primary Benign essential hypertension (CMS/HCC) Essential hypertension, benign Primary osteoarthritis of left hip DDD (degenerative disc disease), lumbar Degeneration of lumbar or lumbosacral intervertebral disc Age-related osteoporosis without current pathological fracture (CMS/HCC) Type 2 diabetes mellitus with stage 3b chronic kidney disease, without long-term current use of insulin (HCC) (CMS/HCC) Stage 3b chronic kidney disease (CKD) (CMS/[facility]) Preoperative clearance- Primary Unspecified pre-operative examination Primary osteoarthritis of left hip Type 2 diabetes mellitus with hyperglycemia, without long-term current use of insulin (CMS/HCC) Benign essential hypertension (CMS/HCC) Essential hypertension, benign Type 2 diabetes mellitus with stage 3a chronic kidney disease, without long-term current use of insulin (HCC) (CMS/HCC) Chronic kidney disease, stage 3a (N18.31) Benign essential hypertension (CMS/HCC)- Primary Essential hypertension, benign KENZIE (generalized anxiety disorder) (CMS/[facility]) Generalized anxiety disorder Hospital discharge follow-up Other follow-up examination Type 2 diabetes mellitus with hyperglycemia, without long-term current use of insulin (CMS/HCC)- Primary Benign essential hypertension (CMS/HCC) Essential hypertension, benign Type 2 diabetes mellitus with stage 3a chronic kidney disease, without long-term current use of insulin (HCC) ([facility]) Recurrent UTI Urinary tract infection, site not specified Primary osteoarthritis of left hip Stress, reaction gross Unspecified acute reaction to stress DDD (degenerative disc disease), lumbar Degeneration of lumbar or lumbosacral intervertebral disc Preoperative clearance Unspecified pre-operative examination Medicare annual wellness visit, subsequent- Primary Type 2 diabetes mellitus with hyperglycemia, without long-term current use of insulin ([facility]) Benign essential hypertension ([facility]) Essential hypertension, benign CKD stage 3a, GFR 45-59 ml/min (CMS/[facility]) Dyslipidemia ([facility]) Other and unspecified hyperlipidemia Encounter for long-term current use of medication Breast cancer screening by mammogram Degeneration of intervertebral disc of lumbar region with discogenic back pain documented in this encounter [facility] general N[facility]ative - [facility] [id number] Other Summary Purpose Family History Relationship Condition Age at Onset Recorded Date/T felipe daughter Family history of mental disorder Unknown Depression Unknown father Unknown mother Unknown sister Diabetes mellitus Unknown Heart disease Unknown Advance Directives Advance Directive Response Recorded Date/ Time Advance Directives No December 06, 2023 11:20am Chief Complaint and Reason for Visit Chief Complaint RENAL F/U Reason for Visit CKD (chronic kidney disease) stage 3, GFR 30-59 ml/min Hyperlipidemia [id number] Secondary hyperparathyroidism Type 2 diabetes mellitus with diabetic chronic kidney disease Reason for Referral Specialty Diagnoses / Procedures Referred By Contac t Referred To Contact Diagnoses Preop examination Hypertension, unspecified type Type 2 diabetes mellitus without complication, without long-term current use of insulin ([facility]) Urinary frequency Former smoker Osteoarthritis of left hip, unspecified osteoarthritis type Procedures ECG 12 lead Brock Kumar Jr., DO [address] [place] [address] Referral ID Status Reason Start Date Expiration Date V isits Requested Visits Authorized [id number] Pending Review 09/18/2023 09/17/2024 1 1 Additional Source Comments INFORMATION SOURCE (unrecogn ized section and content) DATE CREATED AUTHOR [facility]/05/2017 [facility] DATE CREATED AUTHOR AUTHOR'S ORGANIZ ATION 07/23/2020 [facility] DATE CREATED AUTHOR AUTHOR'S ORGANIZ ATION 09/16/2022 [facility] DATE CREATED AUTHOR AUTHOR'S ORGANIZ ATION 10/10/2023 [facility] DATE CREATED AUTHOR AUTHOR'S ORGANIZ ATION 03/02/2024 [facility] EPIC REASON FOR VISIT (unrecogniz ed section and content) Reason Comments DM Foot Care Pt presents today fo r diabetic foot care, she states since her LV she has been dealing with some medical issues. Her Rt 3rd toenail is very thick, fungal and long it got caught in the bed and broke BS: 112 A1C: 6.2LV Dr. Alvarez 12-11-2023SS: 9.5 Reason Comments Med Refill Reason Comments Pain Reason Comments Medicare Annual Wellness Visit Subsequen t Wellness Reason Comments Follow-up 6m f/u Care Teams (unrecognized sec tion and content) 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 Start Date End Date Romulo Alvarez MD [address] [place] [phone] PCP - Devoted 04/09/21 Romulo Alvarez MD [address] [place] [phone] PCP - General Family Medicine 05/08/23 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 Start Date End Date Romulo Alvarez MD [address] [place] [phone] PCP - Devoted 04/09/21 Romulo Alvarez MD [address] [place] [phone] PCP - General Family Medicine 05/08/23 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 Start Date End Date Romulo Alvarez MD [address] [place] [phone] PCP - Devoted 04/09/21 Romulo Alvarez MD [address] [place] [address] [place] [phone] PCP - General Family Medicine 05/08/23 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 Start Date End Date Romulo Alvarez MD [address] [place] [place] [address] PCP - Devoted 04/09/21 Romulo Alvarez MD [address] [place] [address] [place] [address] PCP - General [facility] Medicine 05/08/23 Team Status: Active Member Role Status Dates Romulo Alvarez MD Primary Care Provider Active Team Status: Active Member Role Status Dates Romulo Alvarez MD Primary Care Provider Active S tart: January 11, 2024 Ghislaine Kirkpatrick MD Attending Provider Active Start : January 11, 2024 Team Status: Inactive Member Role Status Dates Romulo Alvarez MD Primary Care Provider Active S tart: January 31, 2024 End: January 31, 2024 Ghislaine Kirkpatrick MD Attending Provider Active Start : January 31, 2024 End: January 31, 2024 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 Start Date End Date Romulo Alvarez MD [address] [place] [place] [address] PCP - Devoted 04/09/21 Romulo Alvarez MD [address] [place] [place] [address] PCP - General Family Medicine 05/08/23 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 Start Date End Date Romulo Alvarez MD [address] [place] [place] [address] PCP - Devoted 04/09/21 Romulo Alvarez MD [address] [place] [place] [address] PCP - General Family Medicine 05/08/23 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 Start Date End Date Romulo Alvarez MD [address] [place] [place] [address] PCP - Devoted 04/09/21 Romulo Alvarez MD [address] [place] [address] [place] [phone] PCP - General Family Medicine 05/08/23 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 Start Date End Date Romulo Alvarez MD [address] [place] [place] [phone] PCP - Devoted 04/09/21 Romulo Alvarez MD [address] [place] [place] [phone] PCP - General Family Medicine 05/08/23 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 Start Date End Date Romulo Alvarez MD [address] [place] [address] [place] [phone] PCP - Devoted 04/09/21 Romulo Alvarez MD [address] [place] [phone] PCP - General Family Medicine 05/08/23 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 Start Date End Date Romulo Alvarez MD [address] [place] [place] [address] PCP - Devoted 04/09/21 Romulo Alvarez MD [address] [place] [address] [place] [address] PCP - General Family Medicine 05/08/23 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 Start Date End Date Romulo Alvarez MD [address] [place] [place] [address] PCP - Devoted 04/09/21 Romulo Alvarez MD [address] [place] [place] [address] PCP - General Family Medicine 05/08/23 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 Start Date End Date Romulo Alvarez MD [address] [place] [place] [address] PCP - Devoted 04/09/21 Romulo Alvarez MD [address] [place] [place] [address] PCP - General Family Medicine 05/08/23 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 [facility] [employer] [facility]. provides no warranty or guarantee of the accuracy or completeness of information in this document.
--- NOTE | 2024-06-15 18:49 | ED_ITS ---
HPI HPI - General Adult General Stated complaint: UTI Time Seen by Provider: 06/15/24 18:38 Source: patient Mode of arrival: ambulance History of Present Illness HPI narrative: 68-year-old female presents to the emergency department for dysuria and frequency and weakness. She states she is afraid if she gets up and walk she will fall. She believes she might have a UTI. She states she had one about a month ago and got admitted to another hospital, in [place]. No fever or vomiting or complaints of flank pain. Related Data Home Medications ?Medication ?Instructions ?Recorded ?Confirmed alendronate 70 mg tablet 70 mg PO .WEEKLY 10/12/23 10/13/23 atorvastatin 10 mg tablet 10 mg PO BEDTIME 10/12/23 10/12/23 calcium 600 mg (as 1 tab PO BID 10/12/23 10/12/23 carbonate)-vitamin D3 10 mcg (400 unit) tablet ferrous sulfate 325 mg (65 mg 325 mg PO .QOD 10/12/23 10/13/23 iron) tablet (FeroSul) iron polysacch cplx 150 mg 1 cap PO DAILY 10/12/23 10/12/23 iron-vit B12 25 mcg-folic acid 1 mg capsule (Poly-Iron) losartan 100 1 tab PO DAILY 10/12/23 10/12/23 mg-hydrochlorothiazide 25 mg tablet magnesium oxide 400 mg (241.3 mg 400 mg PO DAILY 10/12/23 10/12/23 magnesium) tablet metformin 500 mg tablet 500 mg PO BID 10/12/23 10/12/23 metoprolol tartrate 50 mg tablet 50 mg PO BID 10/12/23 10/12/23 zsfkdaat-znbz-zezt 8 mg-folic 400 1 tab PO DAILY 10/12/23 10/12/23 mcg-K 50 mcg-lutein 300 mcg tablet (Centrum Silver Women) oxycodone-acetaminophen 10 mg-325 1 tab PO QID PRN pain, severe 10/13/23 10/13/23 mg tablet Previous Rx's ?Medication ?Instructions ?Recorded levofloxacin 750 mg tablet 750 mg PO DAILY 7 days #7 tabs 10/15/23 Allergies Allergy/AdvReac Type Severity Reaction Status Date / Time No Known Drug Allergies Allergy Verified 10/12/23 18:02 Opioid HPI Opioid Management Most Recent Opioid Data: Last Pain Scale 0 10/15/23 15:25 10/15/23 Last ORT Total Score 0 10/12/23 21:10 10/12/23 Last ORT Risk Category Low Risk 10/12/23 21:10 10/12/23 Review of Systems ROS Narrative A ten point review of systems is negative except as noted above. [facility] Medical History (Updated 06/15/24 @ 18:50 by Suleiman Fox MD) CKD stage 3a, GFR 45-59 ml/min ?N18.31 - Chronic kidney disease, stage 3a (ICD-10) Type 2 diabetes mellitus with hyperglycemia ?E11.65 - Type 2 diabetes mellitus with hyperglycemia (ICD-10) Hypertension ?I10 - Essential (primary) hypertension (ICD-10) Tonsillectomy planned UTI (urinary tract infection) ?N39.0 - Urinary tract infection, site not specified (ICD-10) Arthritis ?M19.90 - Unspecified osteoarthritis, unspecified site (ICD-10) Chronic kidney disease ?N18.9 - Chronic kidney disease, unspecified (ICD-10) Diabetes ?E11.9 - Type 2 diabetes mellitus without complications (ICD-10) Hyperlipidemia ?E78.5 - Hyperlipidemia, unspecified (ICD-10) Surgical History (Updated 10/12/23 @ 21:39 by David Washington) Hx of tonsillectomy ?Z90.89 - Acquired absence of other organs (ICD-10) Social History Highest level of school completed/degree received: 12th grade, no diploma Little interest or pleasure in doing things: not at all Feeling down, depressed, or hopeless: not at all Exam Narrative Exam Narrative: Nurses note and vital signs reviewed and patient is not hypoxic. General: The patient appears well and in no apparent distress. Patient is resting comfortably on cart. Skin: Warm, dry, no pallor noted. There is no rash noted. Head: Normocephalic, atraumatic Eye: Normal conjunctiva, no drainage Ears, Nose, Mouth, and Throat: oral mucosa is moist. Nares patent. Cardiovascular: Regular Rate and Rhythm Respiratory: Patient is in no distress, no accessory muscle use, lungs are clear to auscultation, no wheezing, rales or rhonchi Back: non-tender, no CVA tenderness bilaterally to percussion. GI: Soft and nontender Musculoskeletal: The patient has no evidence of calf tenderness, no pitting edema, symmetrical pulses noted bilaterally Neurological: A&O, normal speech Psychiatric: Cooperative Constitutional Vital Signs, click to edit/add: Last Vital Signs Temp 98.0 F 06/15/24 18:33 Pulse 92 H 06/15/24 18:33 Resp 18 06/15/24 18:33 BP 131/74 06/15/24 18:33 Pulse Ox 94 L 06/15/24 18:33 O2 Del Method Room Air 06/15/24 18:33 Course Vital Signs Vital signs: Vital Signs Temperature 98.0 F 06/15/24 18:33 Pulse Rate 92 H 06/15/24 18:33 Respiratory Rate 18 06/15/24 18:33 Blood Pressure 131/74 06/15/24 18:33 Pulse Oximetry 94 L 06/15/24 18:33 Oxygen Delivery Method Room Air 06/15/24 18:33 Temperature 98.0 F 06/15/24 18:33 Pulse Rate 92 H 06/15/24 18:33 Respiratory Rate 18 06/15/24 18:33 Blood Pressure 131/74 06/15/24 18:33 Pulse Oximetry 94 L 06/15/24 18:33 Oxygen Delivery Method Room Air 06/15/24 18:33 Medical Decision Making [facility] Narrative Medical decision making narrative: Blood work and urinalysis are ordered and the patient is signed out to Dr. Martin at change of shift. Differential Diagnosis Differential Diagnosis: UTI, dehydration Discharge Plan Discharge Clinical Impression: Dysuria Patient Disposition: Still a Patient Prescriptions / Home Meds: No Action alendronate 70 mg tablet 70 mg PO .WEEKLY atorvastatin 10 mg tablet 10 mg PO BEDTIME calcium carbonate-vitamin D3 600 mg-10 mcg (400 unit) tablet 1 tab PO BID ferrous sulfate [FeroSul] 325 mg (65 mg iron) tablet 325 mg PO .QOD Poly-Iron 150 Forte 150-25-1 mg-mcg-mg capsule 1 cap PO DAILY losartan-hydrochlorothiazide 100-25 mg tablet 1 tab PO DAILY magnesium oxide 400 mg (241.3 mg magnesium) tablet 400 mg PO DAILY metformin 500 mg tablet 500 mg PO BID metoprolol tartrate 50 mg tablet 50 mg PO BID Centrum Silver Women 8 mg iron-400 mcg-50 mcg tablet 1 tab PO DAILY oxycodone-acetaminophen 10-325 mg tablet 1 tab PO QID PRN (Reason: pain, severe) levofloxacin 750 mg tablet 750 mg PO DAILY 7 Days Qty: 7 0RF Print Language: Faroese Referrals: Romulo Garcia MD [Primary Care Provider] - 1 week
[2024-06-15 19:31] LABS: Bilirubin Urine NEGATIVE (NEGATIVE); Blood Urine SMALL (NEGATIVE); Clarity Urine CLEAR (CLEAR); Color Urine YELLOW (YELLOW); Glucose Urine UA >=1000 mg/dL (NEGATIVE); Ketones Urine 15 mg/dL (NEGATIVE); Leukocyte Esterase Urine NEGATIVE (NEGATIVE); Nitrite Urine NEGATIVE (NEGATIVE); Protein Urine TRACE mg/dL (NEG/TRACE); Urobilinogen Urine 0.2 EU/dL (0.2-1.0)
[2024-06-15 19:31] LABS: Basophils Percent Auto 0.8 % (0.2-2.0); Eosinophils Absolute Auto 0.1 10^3/uL (0.0-0.7); Eosinophils Percent Auto 1.7 % (0.9-7.0); Hemoglobin 14.1 g/dL (12.0-16.0); Immature Granulocytes Abs Auto 0.01 10^3/uL (0.00-0.03); Immature Granulocytes Pct Auto 0.2 % (0.0-0.5); Lymphocytes Absolute Auto 0.4 10^3/uL (1.2-3.8); Lymphocytes Percent Auto 8.4 % (20.5-60.0); Mean Corpuscular HGB Conc 32.8 g/dL (29.9-35.2); Mean Corpuscular Hemoglobin 30.1 pg (26.7-34.0); Mean Corpuscular Volume 91.9 fL (81.0-99.0); Mean Platelet Volume 10.8 fL (9.5-13.5); Monocytes Absolute Auto 0.7 10^3/uL (0.3-0.8); Monocytes Percent Auto 13.4 % (1.7-12.0); Neutrophils Absolute Auto 3.9 10^3/uL (1.4-6.5); Neutrophils Percent Auto 75.5 % (43.0-75.0); Platelet Count 251 10^3/uL (150-450); Red Blood Count 4.68 10^6/uL (4.20-5.40); Red Cell Distribution Width 13.2 % (11.0-15.0); White Blood Count 5.2 10^3/uL (4.0-11.0)
[2024-06-15 19:38] LABS: Bacteria Urine NONE SEEN #/HPF (NONE SEEN); Cast Seen? NONE SEEN #/LPF (NONE SEEN); Crystals Seen? None Seen #/HPF (None Seen); Mucus Urine NONE SEEN (NONE SEEN); RBC Urine 0-2 #/HPF (0-2); Squamous Epithelial Cell Urine RARE #/LPF (NONE/RARE); Urine Culture Indicated NO; WBC Urine NONE SEEN #/HPF (NONE SEEN)
[2024-06-15 19:41] LABS: Anion Gap 13.9; BUN Creatinine Ratio 19.2; Carbon Dioxide 26.6 mmol/L (21.0-32.0); Chloride 99 mmol/L (98-107); Estimated GFR (African America 43 (>=60 mL/min/1.73m^2); Estimated GFR (Non-African Ame 35 (>=60 mL/min/1.73m^2); Glucose 132 mg/dL (74-106); Potassium 4.5 mmol/L (3.5-5.1); Sodium 135 mmol/L (136-145)
[2024-06-15] MEDS: ACETAMINOPHEN 500 MG TABLET PO (21:07)
[2024-06-15] MEDS: TRAMADOL HCL 50 MG TABLET PO (21:07)
[2024-06-15] MEDS: 0.9 % SODIUM CHLORIDE 500 ML IV (21:07)
[2024-06-15 21:18] VITALS: BP 125/81; PULSE 86; O2SAT 94
[2024-06-15 21:36] LABS: Influenza Virus A Antigen Negative; Influenza Virus B Antigen Negative; Internal Control Within Normal Limits; SARS-CoV-2 Ag NEGATIVE (NEGATIVE)
[2024-06-15 21:44] VITALS: BP 138/73; PULSE 83; O2SAT 97
== END 2024-06-15 23:17 | disposition home or self-care (01) ==
PROVIDERS: Emergency Medicine; Emergency Provider Emergency Medicine; PCP Family Medicine
DX: R53.1 Weakness (principal); R30.0 Dysuria; M25.552 Pain in left hip; R35.0 Frequency of micturition; Z87.440 Personal history of urinary (tract) infections
CPT/HCPCS: 36415; 80048; 81001; 85025; 87804; 87811; 99285

== ENCOUNTER 2024-08-21 09:24 | Outpatient (OUT) | payer OTHER, SELFPAY ==
--- OUTSIDE RECORDS SUMMARY | 2024-08-21 09:45 | XMS_ITS | CCD ---
Author Organization [facility]iniSyak Care Team Providers Care Aquatic Facility Manager Name Role Phone Rice, Bakari W Unavailable Unavailable Rice, Bakari W Unavailable Unavailable Rice, Bakari W Unavailable Unavailable NADERER, ROMULO~[phone] UNKNOWN Unavailable Unavailable NADERER, ROMULO AVALOS Primary [...] José Consulting Unavailable NADERER, DR ROMULO Mueller Consulting Unavailable NADERER, DR ROMULO Mueller Primary Care Unavailable WEST, DR CONNIE José Consulting Unavailable NADERER, DR ROMULO Muelelr Admitting Unavailable NADERER, DR ROMULO Mueller Attending Unavailable NADERER, DR ROMULO Mueller Consulting Unavailable NADERER, DR ROMULO Mueller Primary Care Unavailable NADERER, DR ROMULO Mueller Consulting Unavailable FAWWAD, H Admitting Unavailable FAWWAD, SHAIKH Stephanie Attending Unavailable FAWWAD, H Consulting Unavailable JTISAMAR ARCE Consulting Unavailable NADERER, DR ROMULO Mueller Consulting Unavailable NADERER, DR ROMULO Mueller Admitting Unavailable NADERER, DR ROMULO Mueller Primary Care Unavailable NADERER, DR ROMULO Mueller Attending Unavailable NADERER, DR ROMULO Mueller Primary Care Unavailable GRILLIS ., DR KELLY Calderon Consulting Unavaila ble GRILLIS ., DR KELLY Calderon Attending Unavaila ble GRILLIS ., DR KELLY Calderon Admitting Unavaila ble URI II, CHANO Consulting Unavailable FILUTZE, VIANEY Consulting Unavailable NATALIA ROEM, BROCK Crandall Referring Unavailabl e NADERER, ROMULO Primary Care Unavailable NATALIA ROME, BROCK Crandall Referring Unavailabl e NADERER, ROMULO Primary Care Unavailable NATALIA ROME, BROCK Crandall Attending Unavailabl e STEPANIC JR, BROCK Crandall Referring Unavailabl e NADERER, ROMULO Primary Care Unavailable NATALIA ROME, BROCK Crandall Attending Unavailabl e STEPANIC JR, BROCK Crandall Referring Unavailabl e NADERER, ROMULO Primary Care Unavailable NATALIA ROME, BROCK Crandall Attending Unavailabl e STEPANIC JR, BROCK Crandall Referring Unavailabl e NADERER, ROMULO Primary Care Unavailable NADERER, ROMULO Referring Unavailable NADEREMaria L, ROMULO Primary Care Unavailable Romulo Alvarez MD Unavailable Romulo Alvarez MD Primary Care Provider Romulo Alvarez MD Primary Care Provider [phone] Trevor Caballero MA Unavailable Unavailable Romulo Alvarez MD Primary Care Provider [phone] Bakari Rodriguez MD Attending Provider Ghislaine Kirkpatrick MD Other Provider Ghislaine Kirkpatrick Consulting Unavailable Bakari Rodriguez II Admitting Unavailabl e Bakari Rodriguez II Attending Unavailabl e Naderer, Romulo Primary Care Unavailable JR. NATALIA, BROCK Crandall Attending Unavailvania KUMAR JR., GEORGE C Referring UnavailSAGE James Attending Unavailable ARIANNA GUY Attending Unavailable SAGE AMOS Referring Unavailable SHARONA GUILLEN Attending Unavailable SAGE AMOS Referring Unavailable VIANEY MELTON Attending Unavailable ROMULO ALVAREZ Attending Unavailable SHARONA GUILLEN Attending Unavailable SHARONA GUILLEN Attending Unavailable SHAIKH OSMAN Attending Unavailable ROMULO ALVAREZ Attending Unavailable VIANEY MELTON Attending Unavailable JR. KUMAR GEORGE C Attending UnavailROMULO Barber Attending Unavailable Allergies Allergy Classification Reported Allergen(s) Allergy Type Date of Onset Reaction(s) Facility (1 source) No Known Medication Allergies; Translations: [No Known Medication Allergies] Propensity to adverse reactions (disorder) [facility] Repository Medications Current Medications Medication Drug Class(es) [...] 1 tablet by mouth every six hours as needed Oxycodone-Acetaminophen 10-325 mg tablet Active 1 TAB PO Every 6 hours as needed January 31, 2024 12:00am Start: 12-13-2023 End: 09-03-2024 take 1 tablet by mouth four times daily as needed for pain oxyCODONE-acetaminophen (Percocet) 10-32 5 MG tablet Indications: Degeneration of intervertebral disc of lumbar region with discogenic back pain Take 1 tablet by mouth 4 (four) times a day as needed for severe pain or moderate pain 120 tablet 08/04/2024 09/03/2024 Active Start: 09-05-2023 End: 10-05-2023 oxyCODONE-acetaminophen (PER COCET) 10-325 mg per tablet Take 1 tablet by mouth 4 (four) times a day as needed. Max Daily Amount: 4 tablets 09/05/2023 10/05/2023 Active alendronic acid 70 mg oral tablet (20 sources) Bisphosphonate Start: 01-31-2024 take 1 tablet by mouth every week Alendronate 70 mg tablet Active 70 MG PO every week January [...] (10 mg) by mouth Daily 30 tablet 11/12/2023 11/11/2024 Active take 1 tablet by mouth in the mo rning atorvastatin (LIPITOR) 10 mg tablet Take 1 [...] by mouth twice daily Calcium Carbonate-Vitamin D3 600 mg-10 mcg (400 unit) tablet Active 1 TAB PO Twice daily January 31, 2024 12:00am Start: 12-13-2023 take 1 tablet by [facility] twice daily Calcium Carb-Cholecalciferol 600-10 MG-MCG tablet Indications: Age-related osteoporosis without current pathological fracture (CMS/HCC) TAKE 1 TABLET BY MOUTH TWICE DAILY 180 tablet 5 12/13/2023 Active cefdinir 300 mg oral capsule (1 source) Cephalosporin Antibacterial Start: 07-22-2024 End: 08-01-2024 take 1 capsule by mouth in the morning cefdinir (Omnicef) 300 MG capsule Indications: Upper respiratory tract infection, unspecified type Take 1 capsule (300 mg) by mouth in the morning and 1 capsule (300 mg) before bedtime. Do all this for 10 days. 20 capsule 07/22/2024 08/01/2024 Active Centrum Silver 50+Women - (1 source) Centrum Silver 50+Women - as directed Orally Active cholecalciferol 0.025 [...] morning. 09/19/2023 Discontinued take 1 capsule by [facility] every twenty-four hours Vitamin D3 50 MCG (1999) 1 capsule Orally Once a day Active 12 hr dextromethorphan polistirex 6 mg/ml extended release suspension (10 sources) Uncompetitive H-jpiqyr-L-aspartate Receptor Antagonist, Sigma-1 Agonist Start: 06-23-2024 take 10 mL by mouth in the morning dextromethorphan (Delsym) 30 MG/5ML liquid Indications: Upper respiratory tract infection, unspecified type Take 10 mL (60 mg) by mouth in the morning and 10 mL (60 mg) before bedtime. 89 mL 2 06/23/2024 Active docusate sodium 50 mg / sennosides, group home 8.6 mg oral tablet (20 sources) take 1 tablet by mouth in the morning senna-docusate sodium (Senokot-S) 8.6-50 MG tablet Take 1 tablet by mouth in the morning. Active take 1 tablet by emilee th every twenty-four hours Senna S 8.6-50 MG 1 tablet as needed Orally ONCE A DAY Active empagliflozin 10 mg oral tablet (20 sources) Sodium-Glucose Cotransporter 2 Inhibitor Start: 12-11-2023 End: 08-06-2024 take 1 tablet by mouth once daily empagliflozin (Jardiance) 10 MG Indications: Type 2 diabetes mellitus with stage 3a chronic kidney disease, without long-term current use of insulin (HCC) ([facility]) Take 1 tablet (10 mg) by mouth Daily 30 tablet 5 06/03/2024 Active ferrous sulfate 325 mg oral tablet (20 sources) Start: 04-08-2024 Ferrous Sulfate (Ferosul) 325 mg (65 mg iron) tablet Active 325 MG PO Every 48 hours 45 April 08, 2024 6:57pm Start: 09-26-2023 End: 04-08-2024 take 1 tablet by mouth every other day Ferrous Sulfate (Ferosul) 325 mg (65 mg iron) tablet Discontinued 0 .ROUTE .COMPLEX 45 September 26, 2023 12:47pm April 08, 2024 6:57pm TAKE 1 TABLET BY MOUTH EVERY OTHER DAY Start: 09-25-2023 End: 09-26-2023 Ferrous Sulfate 325 mg (65 m g iron) tablet Discontinued 325 MG PO Every 48 hours [...] (20 sources) Serotonin Reuptake Inhibitor Start: 04-03-2024 End: 07-07-2024 take 1 capsule by mouth once daily FLUoxetine (PROzac) 10 MG capsule Indications: KENZIE (generalized anxiety disorder) (CMS/HCC) TAKE 1 CAPSULE BY MOUTH ONCE DAILY 30 capsule 2 07/07/2024 Active Start: 01-31-2024 take 1 capsule by mo uth once daily Fluoxetine 10 mg capsule Active 10 MG PO Daily January 31, [...] tablet (20 sources) Antihistamine Start: 01-31-2024 take 1 tablet by mouth three times daily as needed Hydroxyzine Hcl 10 mg tablet Active 10 MG PO Three times daily as needed January 31, 2024 12:00am Start: 10-18-2023 End: 04-09-2024 take 1 tablet by mouth every eight hours for anxiety hydrOXYzine HCl (Atarax) 10 MG tablet Indications: KENZIE (generalized anxiety disorder) (CMS/HCC) Take 1 tablet (10 mg) by mouth every 8 (eight) hours if needed for anxiety 90 tablet 2 01/10/2024 Active magnesium oxide 400 mg oral tablet (20 sources) Start: 07-06-2024 take 1 tablet by mouth once daily Magnesium Oxide 400 mg (241.3 mg magnesium) tablet Active 0 .ROUTE .COMPLEX 90 July 06, 2024 11:20am TAKE 1 TABLET BY MOUTH DAILY Start: 01-31-2024 End: 07-06-2024 take 1 tablet by mouth once Magnesium Oxide 400 mg (24 1.3 mg magnesium) tablet Discontinued 400 MG PO Once January 31, 2024 12:31pm July 06, 2024 11:21am Start: 01-02-2024 End: 01-31-2024 take 1 tablet by mouth once daily Magnesium Oxide 400 mg (241.3 mg magnesium) tablet Discontinued 0 .ROUTE .COMPLEX January 02, 2024 9:29am January 31, 2024 12:34pm TAKE 1 TABLET BY MOUTH DAILY Start: 01-02-2024 End: 01-31-2024 take 1 tablet by mouth once daily Magnesium Oxide Discontinued 0 .ROUTE .COMPLEX January 02, 2024 9:29am January 31, 2024 12:34pm TAKE 1 TABLET BY MOUTH DAILY Start: 08-08-2023 End: 01-02-2024 take 1 tablet by mouth once daily Magnesium Oxide 400 mg (241.3 mg magnesium) tablet Discontinued 400 MG PO Daily August 08, 2023 5:21pm January 02, 2024 9:29am Start: 02-10-2021 take 1 tablet by emilee [...] mg oral tablet (20 sources) Biguanide Start: 11-12-2023 take 1 tablet by mouth in the morning metFORMIN (Glucophage) 500 MG tablet Indications: Type 2 diabetes mellitus with hyperglycemia, without long-term current use of insulin ([facility]) Take 1 tablet (500 mg) by mouth in the morning and 1 tablet (500 mg) in the evening. Take with meals. 200 tablet 3 06/05/2024 Active Start: 07-13-2023 take 1 tablet by [...] Active Multiple Vitamins-Minerals (Centrum Silver 50+Women) tablet (20 sources) Start: 02-14-2024 take 1 tablet by mouth once daily Multiple Vitamins-Minerals (Centrum Silver 50+Women) tablet Indications: Age-related osteoporosis without current pathological fracture (CMS/HCC) Take 1 tablet by mouth daily 90 tablet 3 02/14/2024 Active Oyfnkkqp-Wkl-Qozo-Fa-Vi t K-Lut (Centrum Silver Women) 8 mg iron-400 mcg-50 mcg tablet (3 sources) Start: 01-31-2024 take 1 tablet by mouth once daily Xtugslbi-Uev-Aaiu-Fa-V it K-Lut (Centrum Silver Women) 8 mg [...] stage 3 (moderate)] Onset: 4 10-13-2023 Chronic Chronic kidney disease (20 sources) Chronic kidney disease; Translations: [Chronic kidney disease, stage III (moderate)] Onset: 1 Resolved: 2 Deficiency and other anemia (17 sources) Anemia of renal disease; Translations: [Anemia in chronic kidney disease] 09-27-2023 Chronic Deficiency and other anemia (6 sources) Anemia in chronic kidney disease; Translations: [...] kidney disease] Onset: 1 Resolved: 2 Chronic Mycoses (20 sources) Onychomycosis; Translations: [Tinea unguium] Onset: 4 06-12-2023 Episodic Osteoarthritis (20 sources) Unilateral primary osteoarthritis, left hip; Translations: [Osteoarthritis of left hip joint] Onset: 2 06-12-2023 Chronic Osteoporosis (20 sources) Senile osteoporosis; Translations: [Age-related osteoporosis without current pathological fracture] Onset: 4 06-12-2023 Chronic Other aftercare (2 sources) Other intermediate manager (current) drug therapy; Translations: [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 CURRENT DRUG THERAPY] Onset: 3 Episodic Other aftercare (1 source) manager terminal (current) use of aspirin; Translations: [AIRCRAFT INSPECTION RECORD CLERK CURRENT USE OF ASPIRIN] Onset: 3 Episodic Other aftercare (1 source) assisted (current) use of oral hypoglycemic drugs; Translations: [ALF USE ORAL HYPOGLYCEMIC DX] Onset: 3 Episodic Other and unspecified benign neoplasm (1 source) Personal history of colonic polyps; Translations: [PERSONAL HISTORY OF COLONIC POLYPS] Onset: 3 Episodic Other connective tissue disease (2 sources) Pain of toes of bilateral feet; Translations: [Pain in right toe(s)] 01-10-2024 Episodic Other diseases of kidney and ureters (17 sources) Secondary hyperparathyroidism; Translations: [Secondary hyperparathyroidism of renal origin] 09-27-2023 Chronic Other diseases of kidney and ureters (8 sources) Secondary hyperparathyroidism of renal origin; Translations: [Secondary hyperparathyroidism (of renal origin)] Onset: 1 Resolved: 2 Chronic Other non-traumatic joint disorders (3 sources) Pain in unspecified knee; Translations: [PAIN IN UNSPECIFIED KNEE] Onset: 3 Episodic Other non-traumatic joint disorders (1 source) Pain in left knee; Translations: [PAIN IN LEFT KNEE] Onset: 3 Episodic Other non-traumatic joint disorders (6 sources) Hip pain; Translations: [Pain in left hip] 07-23-2024 Episodic Other non-traumatic joint disorders (1 source) Pain in left hip; Translations: [Pain in left hip] Onset: 5 Episodic Other screening for suspected conditions (not mental disorders or infectious disease) (10 sources) Encounter for screening for malignant neoplasm of colon; Translations: [Encounter for screening mammogram for malignant neoplasm of breast] Onset: 2 Episodic Other skin disorders (2 sources) Dystrophia unguium; Translations: [Nail dystrophy] 01-10-2024 Episodic [...] [ACUTE KIDNEY FAILURE UNSPECIFIED] Onset: 02-01-2022 Episodic Malaise and fatigue (4 sources) Weakness; Translations: [WEAKNESS] Onset: 01-26-2022 Episodic Mood disorders (19 sources) Mood disorders Onset: 02-28-2024 02-28-2024 Other aftercare (20 sources) Post-discharge follow-up; Translations: [Encounter for follow-up examination after completed treatment for conditions other than malignant neoplasm] Onset: 10-18-2023 Resolved: 12-11-2023 12-11-2023 Episodic Other aftercare (20 sources) Long-term current use of drug therapy; Translations: [Other intermediate manager (current) drug therapy] Onset: 02-28-2024 02-28-2024 Episodic [...] Test Name Value Interpretation Reference Range Facility A1C with Estimated Average G jhon 08-06-2024 Glucose [Mass/Vol] 126 mg/dL Normal [facility] Comment on above: Result Comment: PERF ORMED BY: [place] [address] PATHOLOGIST M[employer]UAL FUNDS AGENT SUNIL OCAMPO M.D. Performed By: #### A LB, [id number], A1C WT eA #### [address] #### NICOTINE #### [facility] , HbA1c (Bld) [Mass fraction] 6.0 % High 4.3-5.6 [facility] Comment on above: Result Comment: Incr eased risk for diabetes: 5.7 - 6.4 diabetes: >6.4 glycemic control for adults with diabetes: <7.0 Performed By: #### A LB, [id number], A1C WTH eA #### [facility] [address] [id number] [place] #### NICOTINE #### [facility] , Albumin Levelon 08-06-2024 Albumin [Mass/Vol] 4.1 g/dL Normal 3.5-5.7 [facility] Comment on above: Performed By: #### A LB, [id number], A1C [facility] eA #### [facility] [address] [id number] [place] #### NICOTINE #### [facility] , Albumin [Mass/volume] in Ser um or Plasma by Bromocresol green (BCG) dye binding methoOrdered By: Ghislaine Kirkpatrick on 08-06-2024 Albumin BCG dye [Mass/Vol] Albumin [Mass/volume] in Serum or Plasma by Bromocresol green (BCG) dye binding metho 3.5-5.7 [facility] Appearance of UrineOrdered B y: Ghislaine Kirkpatrick on 08-06-2024 Appearance (U) Urine appearance Abnormal Clear [facility] Bacteria [Presence] in Urine by AutomatedOrdered By: Ghislaine Kirkpatrick on 08-06-2024 Bacteria Auto Ql (U) Bacteria [Presence] in Urine by Automated None Seen [facility] Bilirubin Test strip Ql (U)O rdered By: Ghislaine Kirkpatrick on 08-06-2024 Bilirubin Ql (U) Bilirubin.total [Presence] in Urine by Test strip Negative [facility] Calcium [Mass/volume] in Ser um or PlasmaOrdered By: Ghislaine Kirkpatrick on 08-06-2024 Calcium [Mass/Vol] Calcium [Mass/volume] in Serum or Plasma 8.6-10.3 [facility] Carbon dioxide, total [Moles /volume] in Serum or PlasmaOrdered By: Ghislaine Ada on 08-06-2024 CO2 [Moles/Vol] Carbon dioxide, total [Moles/volume] in Serum or Plasma 21.0-31.0 [facility] Casts [Presence] in Urine by AutomatedOrdered By: Ghislaine Kirkpatrick on 08-06-2024 Casts Auto Ql (U) Casts [Presence] in Urine by Automated High None Seen [facility] Chloride [Moles/volume] in S rivka or PlasmaOrdered By: Ghislaine Kirkpatrick on 08-06-2024 Chloride [Moles/Vol] Chloride [Moles/volume] in Serum or Plasma 98-107 [facility] Color Auto (U)Ordered By: Ab vidhi Ada on 08-06-2024 Color (U) Color of Urine by Auto Yellow [facility] Creatinine [Mass/volume] in Serum or PlasmaOrdered By: Ghislaine Ada on 08-06-2024 Creatinine [Mass/Vol] Creatinine [Mass/volume] in Serum or Plasma High 0.60-1.20 [facility] Creatinine [Mass/volume] in UrineOrdered By: Ghislaine Ada on 08-06-2024 Creatinine (U) [Mass/Vol] Creatinine [Mass/volume] in Urine [facility] Comment on above: No reference range e stablished Crystals [Presence] in Urine by AutomatedOrdered By: Ghislaine Kirkpatrick on 08-06-2024 Crystals Auto Ql (U) Crystals [Presence] in Urine by Automated [facility] Dipstick and Microscopicon 0 08-06-2024 Appearance (U) Cloudy Critically abnormal Clear [facility] Comment on above: Order Comment: Reaso n for Exam: Chronic kidney disease, stage III (moderate);Hypertensive ch Name Collection Type:: Clean-Voided Midstream Performed By: #### A LB, [id number], A1C WTH eA #### [facility] [address] [place] [address] [place] #### NICOTINE #### [facility] , Bacteria,Urine Rare Normal None Seen [facility] Comment on above: Order Comment: Reaso n for Exam: Chronic kidney disease, stage III (moderate);Hypertensive ch Name Collection Type:: Clean-Voided Midstream Performed By: #### A LB, [id number], A1C WTH eA #### [facility] [address] [place] [address] [place] #### NICOTINE #### [facility] , Bilirubin,Urine Negative Normal Negative [facility] Comment on above: Order Comment: Reaso n for Exam: Chronic kidney disease, stage III (moderate);Hypertensive ch Name Collection Type:: Clean-Voided Midstream Performed By: #### A LB, [id number], A1C WTH eA #### [address] #### NICOTINE #### [facility] , Color (U) Yellow Normal Yellow [facility] Comment on above: Order Comment: Reaso n for Exam: Chronic kidney disease, stage III (moderate);Hypertensive ch Name Collection Type:: Clean-Voided Midstream Performed By: #### A LB, [id number], A1C WTH eA #### [address] #### NICOTINE #### [facility] , Glucose Ql (U) Normal Normal Normal [facility] Comment on above: Order Comment: Reaso n for Exam: Chronic kidney disease, stage III (moderate);Hypertensive ch Name Collection Type:: Clean-Voided Midstream Performed By: #### A LB, [id number], A1C WTH eA #### [place] [address] [place] #### NICOTINE #### [facility] , Hyaline Casts,Urine 0-8 Normal 0-8 [facility] Comment on above: Order Comment: Reaso n for Exam: Chronic kidney disease, stage III (moderate);Hypertensive ch Name Collection Type:: Clean-Voided Midstream Performed By: #### A LB, [id number], A1C WTH eA #### [place] [address] [place] #### NICOTINE #### [facility] , Ketones Ql (U) Trace High Negative [facility] Comment on above: Order Comment: Reaso n for Exam: Chronic kidney disease, stage III (moderate);Hypertensive ch Name Collection Type:: Clean-Voided Midstream Performed By: #### A LB, [id number], A1C WTH eA #### [place] [address] [place] #### NICOTINE #### [facility] , Leukocyte esterase Test strip Ql (U) 3+ High Negative [facility] Comment on above: Order Comment: Reaso n for Exam: Chronic kidney disease, stage III (moderate);Hypertensive ch Name Collection Type:: Clean-Voided Midstream Performed By: #### A LB, [id number], A1C WTH eA #### [place] [address] [place] #### NICOTINE #### [facility] , Mucus,Urine 1+ Critically abnormal [facility] Comment on above: Order Comment: Reaso n for Exam: Chronic kidney disease, stage III (moderate);Hypertensive ch Name Collection Type:: Clean-Voided Midstream Result Comment: PERF ORMED BY: [place] [address] PATHOLOGIST M[employer]DS AGENT SUNIL OCAMPO M.D. Performed By: #### A LB, [id number], A1C WTH eA #### [place] [address] [place] #### NICOTINE #### [facility] , Nitrite,Urine Negative Normal Negative [facility] Comment on above: Order Comment: Reaso n for Exam: Chronic kidney disease, stage III (moderate);Hypertensive ch Name Collection Type:: Clean-Voided Midstream Performed By: #### A LB, [id number], A1C WTH eA #### [place] [address] [place] #### NICOTINE #### [facility] , Occult Blood,Urine Negative Normal Negative [facility] Comment on above: Order Comment: Reaso n for Exam: Chronic kidney disease, stage III (moderate);Hypertensive ch Name Collection Type:: Clean-Voided Midstream Performed By: #### A LB, [id number], A1C WTH eA #### [place] [address] [place] #### NICOTINE #### [facility] , Othe Crystals,Urine 2+ Normal [facility] Comment on above: Order Comment: Reaso n for Exam: Chronic kidney disease, stage III (moderate);Hypertensive ch Name Collection Type:: Clean-Voided Midstream Performed By: #### A LB, [id number], A1C WTH eA #### [place] [address] [place] #### NICOTINE #### [facility] , Other Casts,Urine 3-4 High None Seen [facility] Comment on above: Order Comment: Reaso n for Exam: Chronic kidney disease, stage III (moderate);Hypertensive ch Name Collection Type:: Clean-Voided Midstream Performed By: #### A LB, [id number], A1C WTH eA #### [address] #### NICOTINE #### [facility] , pH (U) 5.5 [pH] Normal 5.0-9.0 [facility] Comment on above: Order Comment: Reaso n for Exam: Chronic kidney disease, stage III (moderate);Hypertensive ch Name Collection Type:: Clean-Voided Midstream Performed By: #### A LB, [id number], A1C WTH eA #### [place] [address] [place] #### NICOTINE #### [facility] , Protein (U) [Mass/Vol] 20 mg/dL High Negative [facility] Comment on above: Order Comment: Reaso n for Exam: Chronic kidney disease, stage III (moderate);Hypertensive ch Name Collection Type:: Clean-Voided Midstream Performed By: #### A LB, [id number], A1C WTH eA #### [place] [address] [place] #### NICOTINE #### [facility] , RBC,Urine 10-19 High 0-4 [facility] Comment on above: Order Comment: Reaso n for Exam: Chronic kidney disease, stage III (moderate);Hypertensive ch Name Collection Type:: Clean-Voided Midstream Performed By: #### A LB, [id number], A1C WTH eA #### [place] [address] [place] #### NICOTINE #### [facility] , Specificy [place],Urine 1.032 High 1.001-1.030 [facility] Comment on above: Order Comment: Reaso n for Exam: Chronic kidney disease, stage III (moderate);Hypertensive ch Name Collection Type:: Clean-Voided Midstream Performed By: #### A LB, [id number], A1C WTH eA #### [place] [address] [place] #### NICOTINE #### [facility] , Squamous Epithelial Cell,Urine 3-4 High 0-2 [facility] Comment on above: Order Comment: Reaso n for Exam: Chronic kidney disease, stage III (moderate);Hypertensive ch Name Collection Type:: Clean-Voided Midstream Performed By: #### A LB, [id number], A1C WTH eA #### [address] #### NICOTINE #### [facility] , Urobilinogen,Urine 2 mg/dL High Normal [facility] Comment on above: Order Comment: Reaso n for Exam: Chronic kidney disease, stage III (moderate);Hypertensive ch Name Collection Type:: Clean-Voided Midstream Performed By: #### A LB, [id number], A1C WTH eA #### [place] [address] [place] #### NICOTINE #### [facility] , WBC,Urine 10-19 High 0-4 [facility] Group Comment on above: Order Comment: Reaso n for Exam: Chronic kidney disease, stage III (moderate);Hypertensive ch Name Collection Type:: Clean-Voided Midstream Performed By: #### A LB, [id number], A1C WTH eA #### [facility] [address] [id number] [facility] #### NICOTINE #### [facility] , Epithelial cells.squamous [# /area] in Urine sediment by Automated countOrdered By: Ghislaine Kirkpatrick on 08-06-2024 Epithelial cells.squamous Auto (Urine sed) [#/Area] Epithelial cells.squamous [#/area] in Urine sediment by Automated count High 0-2 [facility] Erythrocyte distribution wid th Auto (RBC) [Ratio]Ordered By: Ghislaine Kirkpatrick on 08-06-2024 Erythrocyte distribution width (RBC) [Ratio] Erythrocyte distribution width [Ratio] by Automated count High 11.9-15.3 [facility] Erythrocytes [#/area] in Uri ne sediment by Automated countOrdered By: Ghislaine Kirkpatrick on 08-06-2024 RBC Auto (Urine sed) [#/Area] Erythrocytes [#/area] in Urine sediment by Automated count High 0-4 [facility] Glucose [Mass/volume] in Ser um or PlasmaOrdered By: Ghislaine Kirkpatrick on 08-06-2024 Glucose [Mass/Vol] Glucose [Mass/volume] in Serum or Plasma High 70-100 [facility] Comment on above: ADA recommended refe rence rangeRandom Glucose Reference Range is dependent on time and content of last meal. Glucose of more than 200 mg/dL in a nonstressed, ambulatory subject supports the diagnosis of Diabetes Mellitus. Glucose [Mass/volume] in Uri ne by Test stripOrdered By: Ghislaine Kirkpatrick on 08-06-2024 Glucose Test strip (U) [Mass/Vol] Glucose [Mass/volume] in Urine by Test strip Normal [facility] Hematocrit Auto (Bld) [Volum e fraction]Ordered By: Ghislaine Kirkpatrick on 08-06-2024 Hematocrit (Bld) [Volume fraction] Hematocrit [Volume Fraction] of Blood by Automated count Low 34.0-46.4 [facility] Hemoglobin Test strip Ql (U) Ordered By: Ghislaine Kirkpatrick on 08-06-2024 Hemoglobin Ql (U) Hemoglobin [Presence] in Urine by Test strip Negative [facility] Hemoglobin [Mass/volume] in BloodOrdered By: Ghislaine Kirkpatrick on 08-06-2024 Hemoglobin (Bld) [Mass/Vol] Hemoglobin [Mass/volume] in Blood Low 11.8-15.4 [facility] Hemogram CBC Without Diffon 08-06-2024 Erythrocyte distribution width (RBC) [Ratio] 15.7 % High 11.9-15.3 [facility] Comment on above: Order Comment: Reaso n for Exam Chronic kidney disease, stage III (moderate);Hypertensive ch Performed By: #### C BCNO #### [address] Hematocrit (Bld) [Volume fraction] 31.8 % Low 34.0-46.4 [facility] Comment on above: Order Comment: Reaso n for Exam Chronic kidney disease, stage III (moderate);Hypertensive ch Performed By: #### C BCNO #### [address] Hemoglobin (Bld) [Mass/Vol] 10.3 g/dL Low 11.8-15.4 [facility] Comment on above: Order Comment: Reaso n for Exam Chronic kidney disease, stage III (moderate);Hypertensive ch Performed By: #### C BCNO #### [address] MCH (RBC) [Entitic mass] 27.4 pg Normal 24.7-34.3 [facility] Comment on above: Order Comment: Reaso n for Exam Chronic kidney disease, stage III (moderate);Hypertensive ch Performed By: #### C BCNO #### [address] MCV (RBC) [Entitic vol] 84.6 fL Normal 80-100 [facility] Comment on above: Order Comment: Reaso n for Exam Chronic kidney disease, stage III (moderate);Hypertensive ch Performed By: #### C BCNO #### [address] Mean Corpuscular HGB Conc 32.3 g/dL Normal 32.0-35.0 [facility] Comment on above: Order Comment: Reaso n for Exam Chronic kidney disease, stage III (moderate);Hypertensive ch Performed By: #### C BCNO #### [address] Platelet mean volume (Bld) [Entitic vol] 9.1 fL Normal 6.3-10.7 [facility] Comment on above: Order Comment: Reaso n for Exam Chronic kidney disease, stage III (moderate);Hypertensive ch Result Comment: PERF ORMED BY: [place] [address] PATHOLOGIST [employer] AGENT SUNIL OCAMPO M.D. Performed By: #### C BCNO #### [address] Platelets (Bld) [#/Vol] 325 10*3/uL Normal 150-450 [facility] Comment on above: Order Comment: Reaso n for Exam Chronic kidney disease, stage III (moderate);Hypertensive ch Performed By: #### C BCNO #### [address] RBC (Bld) [#/Vol] 3.76 10*6/uL Normal 3.60-5.00 [facility] Comment on above: Order Comment: Reaso n for Exam Chronic kidney disease, stage III (moderate);Hypertensive ch Performed By: #### C BCNO #### [address] WBC (Bld) [#/Vol] 5.0 10*3/uL Normal 3.8-11.6 [facility] Comment on above: Order Comment: Reaso n for Exam Chronic kidney disease, stage III (moderate);Hypertensive ch Performed By: #### C BCNO #### [address] Hyaline casts [#/area] in Ur ine sediment by Automated countOrdered By: Ghislaine Kirkpatrick on 08-06-2024 Hyaline casts Auto (Urine sed) [#/Area] Hyaline casts [#/area] in Urine sediment by Automated count 0-8 [facility] Ketones Test strip Ql (U)Ord ered By: Ghislaine Kirkpatrick on 08-06-2024 Ketones Ql (U) Ketones [Presence] in Urine by Test strip High Negative [facility] Leukocyte esterase [Presence ] in Urine by Test stripOrdered By: Ghislaine Kirkpatrick on 08-06-2024 Leukocyte esterase Test strip Ql (U) Leukocyte esterase [Presence] in Urine by Test strip High Negative [facility] Leukocytes [#/area] in Urine sediment by Automated countOrdered By: Ghislaine Kirkpatrick on 08-06-2024 WBC Auto (Urine sed) [#/Area] Leukocytes [#/area] in Urine sediment by Automated count High 0-4 [facility] Leukocytes [#/volume] correc rod for nucleated erythrocytes in Blood by Automated counOrdered By: Ghislaine Kirkpatrick on 08-06-2024 WBC corrected for nucl RBC Auto (Bld) [#/Vol] Leukocytes [#/volume] corrected for nucleated erythrocytes in Blood by Automated coun 3.8-11.6 [facility] MCH Auto (RBC) [Entitic mass ]Ordered By: Ghislaine Kirkpatrick on 08-06-2024 MCH (RBC) [Entitic mass] MCH [Entitic mass] by Automated count 24.7-34.3 [facility] MCHC Auto (RBC) [Mass/Vol]Or dered By: Ghislaine Kirkpatrick on 08-06-2024 MCHC (RBC) [Mass/Vol] MCHC [Mass/volume] by Automated count 32.0-35.0 [facility] MCV Auto (RBC) [Entitic vol] Ordered By: Ghislaine Kirkpatrick on 08-06-2024 MCV (RBC) [Entitic vol] MCV [Entitic volume] by Automated count 80-100 [facility] Magnesiumon 08-06-2024 Magnesium [Mass/Vol] 2.1 mg/dL Normal 1.9-2.7 [facility] Comment on above: Order Comment: Reaso n for Exam Chronic kidney disease, stage III (moderate);Hypertensive ch Reason for Exam: Chronic kidney disease, stage III (moderate);Hypertensive ch Performed By: #### R ENAL, MG, URIC #### [address] Magnesium [Mass/volume] in S rivka or PlasmaOrdered By: Ghislaine Kirkpatrick on 08-06-2024 Magnesium [Mass/Vol] Magnesium [Mass/volume] in Serum or Plasma 1.9-2.7 [facility] Mucus [Presence] in Urine by AutomatedOrdered By: Ghislaine Kirkpatrick on 08-06-2024 Mucus Auto Ql (U) Mucus [Presence] in Urine by Automated Abnormal [facility] Nicotine/Cotinine Bloodon Cotinine, Blood <1.0 Normal . [facility] Comment on above: Result Comment: This test was developed and its performance characteristics determined by [facility]. It has not been cleared or approved by the Food and Drug Administration. Cotinine levels greater than 20.0 are consistent with the use of tobacco or tobacco cessation products. Performed at: [address] [id number] Picking Belt Operator: Vivek Moody MD, Phone: [phone] PERFORMED BY: [place] [address] PATHOLOGIST [employer] AGENT SUNIL OCAMPO M.D. Performed By: #### A LB, [id number], A1C [facility] eA #### [address] #### NICOTINE #### [facility] , Nicotine, Blood <1.0 Normal . [facility] Comment on above: Result Comment: This test was developed and its performance characteristics determined by [facility]. It has not been cleared or approved by the Food and Drug Administration. Nicotine levels greater than 2.0 are consistent with the use of tobacco or tobacco cessation products. Performed By: #### A LB, [id number], A1C [facility] eA #### [facility] [address] [place] [address] [place] #### NICOTINE #### [facility] , Nitrite Test strip Ql (U)Ord ered By: Ghislaine Kirkpatrick on 08-06-2024 Nitrite Ql (U) Nitrite [Presence] in Urine by Test strip Negative [facility] No Panel InformationOrdered By: Ghislaine Kirkpatrick on 08-06-2024 Estimated GFR (CKD-EPI) 42.278 mL/Min [facility] Creatinine Clearance (Chem N/A [facility] Parathyrin.intact [Mass/volu me] in Serum or PlasmaOrdered By: Ghislaine Kirkpatrick on 08-06-2024 Parathyrin.intact [Mass/Vol] Parathyrin.intact [Mass/volume] in Serum or Plasma [facility] Parathyroid Hormone Intacton 08-06-2024 Parathyroid Hormone Intact 49.7 pg/mL Normal [facility] Comment on above: Order Comment: Reaso n for Exam Chronic kidney disease, stage III (moderate);Hypertensive ch Result Comment: PERF ORMED BY: [place] [address] PATHOLOGIST [employer] AGENT SUNIL OCAMPO M.D. Performed By: #### P TH #### [address] Phosphate [Mass/volume] in S rivka or PlasmaOrdered By: Ghislaine Kirkpatrick on 08-06-2024 Phosphate [Mass/Vol] Phosphate [Mass/volume] in Serum or Plasma 2.5-4.5 [facility] Platelet mean volume Auto (B ld) [Entitic vol]Ordered By: Ghislaine Kirkpatrick on 08-06-2024 Platelet mean volume (Bld) [Entitic vol] Platelet mean volume [Entitic volume] in Blood by Automated count 6.3-10.7 [facility] Platelets Auto (Bld) [#/Vol] Ordered By: Ghislaine Kirkpatrick on 08-06-2024 Platelets (Bld) [#/Vol] Platelets [#/volume] in Blood by Automated count 150-450 [facility] Potassium [Moles/volume] in Serum or PlasmaOrdered By: Ghislaine Kirkpatrick on 08-06-2024 Potassium [Moles/Vol] Potassium [Moles/volume] in Serum or Plasma 3.5-5.1 [facility] Protein Creat Ratio Ur Rando mon 08-06-2024 Creatinine, Urine (Random) 290.00 mg/dL Normal [facility] Comment on above: Order Comment: Reaso n for Exam: Chronic kidney disease, stage III (moderate);Hypertensive ch Result Comment: No r eference range established Performed By: #### A LB, [id number], A1C WTH eA #### [place] [address] [place] #### NICOTINE #### [facility] , Protein (U) [Mass/Vol] 28 mg/dL High 0-9 [facility] Comment on above: Order Comment: Reaso n for Exam: Chronic kidney disease, stage III (moderate);Hypertensive ch Performed By: #### A LB, [id number], A1C WTH eA #### [facility] [address] [place] [address] [place] #### NICOTINE #### [facility] , Urine Protein/Creatinine Ratio 97 mg/g{Cre} Normal 0-200 [facility] Comment on above: Order Comment: Reaso n for Exam: Chronic kidney disease, stage III (moderate);Hypertensive ch Result Comment: PERF ORMED BY: [place] [address] PATHOLOGIST [employer] AGENT SUNIL OCAMPO M.D. Performed By: #### A LB, [id number], A1C WTH eA #### [address] #### NICOTINE #### [facility] , Protein Test strip (U) [Mass /Vol]Ordered By: Ghislaine Kirkpatrick on 08-06-2024 Protein (U) [Mass/Vol] Protein [Mass/volume] in Urine by Test strip High Negative [facility] Protein [Mass/volume] in Uri neOrdered By: Ghislaine Kirkpatrick on 08-06-2024 Protein (U) [Mass/Vol] Protein [Mass/volume] in Urine High 0-9 [facility] RBC Auto (Bld) [#/Vol]Ordere d By: Ghislaine Ada on 08-06-2024 RBC (Bld) [#/Vol] Erythrocytes [#/volume] in Blood by Automated count 3.60-5.00 [facility] Renal Function Panelon 08-06 Albumin [Mass/Vol] 4.1 g/dL Normal 3.5-5.7 [facility] Comment on above: Order Comment: Reaso n for Exam Chronic kidney disease, stage III (moderate);Hypertensive ch Reason for Exam: Chronic kidney disease, stage III (moderate);Hypertensive ch Performed By: #### R ENAL, MG, URIC #### [facility] [address] [id number] [facility] Anion gap [Moles/Vol] 10.6 mmol/L Normal 6.0-15.0 [facility] Comment on above: Order Comment: Reaso n for Exam Chronic kidney disease, stage III (moderate);Hypertensive ch Reason for Exam: Chronic kidney disease, stage III (moderate);Hypertensive ch Performed By: #### R ENAL, MG, URIC #### [facility] [address] [id number] [facility] Calcium [Mass/Vol] 9.6 mg/dL Normal 8.6-10.3 [facility] Comment on above: Order Comment: Reaso n for Exam Chronic kidney disease, stage III (moderate);Hypertensive ch Reason for Exam: Chronic kidney disease, stage III (moderate);Hypertensive ch Performed By: #### R ENAL, MG, URIC #### [facility] [address] [id number] [place] Chloride [Moles/Vol] 107 mmol/L Normal 98-107 [facility] Comment on above: Order Comment: Reaso n for Exam Chronic kidney disease, stage III (moderate);Hypertensive ch Reason for Exam: Chronic kidney disease, stage III (moderate);Hypertensive ch Performed By: #### R ENAL, MG, URIC #### [facility] [address] [id number] [place] CO2 [Moles/Vol] 26.3 mmol/L Normal 21.0-31.0 [facility] Comment on above: Order Comment: Reaso n for Exam Chronic kidney disease, stage III (moderate);Hypertensive ch Reason for Exam: Chronic kidney disease, stage III (moderate);Hypertensive ch Performed By: #### R ENAL, MG, URIC #### [facility] [address] Creatinine [Mass/Vol] 1.35 mg/dL High 0.60-1.20 [facility] Comment on above: Order Comment: Reaso n for Exam Chronic kidney disease, stage III (moderate);Hypertensive ch Reason for Exam: Chronic kidney disease, stage III (moderate);Hypertensive ch Performed By: #### R ENAL, MG, URIC #### [facility] [address] Estimated GFR 42.278 mL/Min Normal [facility] Comment on above: Order Comment: Reaso n for Exam Chronic kidney disease, stage III (moderate);Hypertensive ch Reason for Exam: Chronic kidney disease, stage III (moderate);Hypertensive ch Performed By: #### R ENAL, MG, URIC #### [facility] [address] Glucose [Mass/Vol] 137 mg/dL High 70-100 [facility] Comment on above: Order Comment: Reaso n for Exam Chronic kidney disease, stage III (moderate);Hypertensive ch Reason for Exam: Chronic kidney disease, stage III (moderate);Hypertensive ch Result Comment: [facility] Glucose Reference Range is dependent on time and content of last meal. Glucose of more than 200 mg/dL in a nonstressed, ambulatory subject supports the diagnosis of Diabetes Mellitus. ADA recommended reference range Performed By: #### R ENAL, MG, URIC #### [facility] [address] Phosphate [Mass/Vol] 3.9 mg/dL Normal 2.5-4.5 [facility] Comment on above: Order Comment: Reaso n for Exam Chronic kidney disease, stage III (moderate);Hypertensive ch Reason for Exam: Chronic kidney disease, stage III (moderate);Hypertensive ch Performed By: #### R ENAL, MG, URIC #### [facility] [address] [id number] [facility] Potassium [Moles/Vol] 3.9 mmol/L Normal 3.5-5.1 [facility] Comment on above: Order Comment: Reaso n for Exam Chronic kidney disease, stage III (moderate);Hypertensive ch Reason for Exam: Chronic kidney disease, stage III (moderate);Hypertensive ch Performed By: #### R ENAL, MG, URIC #### [facility] [address] Sodium [Moles/Vol] 140 mmol/L Normal 136-145 [facility] Comment on above: Order Comment: Reaso n for Exam Chronic kidney disease, stage III (moderate);Hypertensive ch Reason for Exam: Chronic kidney disease, stage III (moderate);Hypertensive ch Performed By: #### R ENAL, MG, URIC #### [facility] [address] [place] [address] Urea nitrogen [Mass/Vol] 27 mg/dL High 7-25 [facility] Comment on above: Order Comment: Reaso n for Exam Chronic kidney disease, stage III (moderate);Hypertensive ch Reason for Exam: Chronic kidney disease, stage III (moderate);Hypertensive ch Performed By: #### R ENAL, MG, URIC #### [facility] [address] [place] [address] Serum or plasma anion gap de terminationOrdered By: Ghislaine Kirkpatrick on 08-06-2024 Anion gap [Moles/Vol] Serum or plasma anion gap determination 6.0-15.0 [facility] Sodium [Moles/volume] in Ser um or PlasmaOrdered By: Ghislaine Ada on 08-06-2024 Sodium [Moles/Vol] Sodium [Moles/volume] in Serum or Plasma 136-145 [facility] Specific gravity Test strip (U) [Rel density]Ordered By: Ghislaine Ada on 08-06-2024 Specific gravity (U) [Rel density] Specific gravity of Urine by Test strip High 1.001-1.030 [facility] Urate [Mass/volume] in Serum or PlasmaOrdered By: Ghislaine Ada on 08-06-2024 Urate [Mass/Vol] Urate [Mass/volume] in Serum or Plasma 2.3-6.6 [facility] Urea nitrogen [Mass/volume] in Serum or PlasmaOrdered By: Ghislaine Ada on 08-06-2024 Urea nitrogen [Mass/Vol] Urea nitrogen [Mass/volume] in Serum or Plasma High 7-25 [facility] Uric Acidon 08-06-2024 Urate [Mass/Vol] 4.7 mg/dL Normal 2.3-6.6 [facility] Comment on above: Order Comment: Reaso n for Exam Chronic kidney disease, stage III (moderate);Hypertensive ch Reason for Exam: Chronic kidney disease, stage III (moderate);Hypertensive ch Result Comment: PERF ORMED BY: [place] [address] PATHOLOGIST [employer] AGENT SUNIL OCAMPO M.D. Performed By: #### R ENAL, MG, URIC #### [facility] [address] [place] [address] Urine Cultureon 08-06-2024 Bacteria identified Cx Nom (U) >100,000 colonies/ml mixed bacterial skin contaminants including mixed gram negative bacilli - 2 Days PERFORMED BY: [place] [address] PATHOLOGIST [employer] AGENT SUNIL OCAMPO M.D. Normal [facility] Comment on above: Performed By: #### A LB, [id number], A1C WTH eA #### [facility] [address] [place] [address] #### NICOTINE #### [facility] , Urine protein/creatinine rat ioOrdered By: Ghislaine Ada on 08-06-2024 Protein/Creatinine (U) [Ratio] Urine protein/creatinine ratio 0-200 [facility] Urobilinogen Test strip (U) [Mass/Vol]Ordered By: Ghislaine Ada on 08-06-2024 Urobilinogen (U) [Mass/Vol] Urobilinogen [Mass/volume] in Urine by Test strip High Normal [facility] Vitamin D 25 Hydroxy Totalon 08-06-2024 Vitamin D 25 Hydroxy Total 43.2 ng/mL Normal 30-100 [facility] Comment on above: Result Comment: QUINTIN MIN D STATUS 25(OH)VITAMIN D RANGE (ng/mL) Deficient <20 Insufficient 20 to <30 Sufficient 30 to 100 Reference: Tori Bucio, Diann SEGOVIA, et al. Evaluation,treatment, and prevention of vitamin D deficiency; an Endocrine Society clinical practice guideline. JCEM. 2010; 96(7):1911-. PERFORMED BY: [facility] [address] [place] [address] PATHOLOGIST [employer] AGENT SUNIL OCAMPO M.D. Performed By: #### A LB, [id number], A1C WTH eA #### [facility] [address] [place] [address] [place] #### NICOTINE #### [facility] , Vitamin D+Metabolites [Mass/ volume] in Serum or PlasmaOrdered By: Bakari Rodriguez on 08-06-2024 Vitamin D+Metabolites [Mass/Vol] Vitamin D+Metabolites [Mass/volume] in Serum or Plasma 30-100 [facility] Comment on above: VITAMIN D STATUS 25( OH)VITAMIN D RANGE (ng/mL) Deficient <20 Insufficient 20 to <30Sufficient 30 to 100Reference: Tori Bucio, Diann SEGOVIA, et al. Evaluation,treatment, and prevention of vitamin D deficiency; an Endocrine Society clinical practice guideline. JCEM. 2010; 96(7):1911-. X-ray reportOrdered By: Taz Dixon on 08-06-2024 Study report [facility] [address] [place] [address] XRay Report Signed Patient: Doug Courtney MR#: [id number] : 1955 Acct:[id number] Age/Sex: 68 / F ADM Date: 5 Loc: [facility] Room: Type: [facility] Attending Dr: Bakari Rodriguez II, MD Copies to: Bakari Rodriguez MD~ Ordering Provider: Bakari Rodriguez MD Date of Service: 08/06/24 XR/XR hip LT min 2V(w/wo pelvis)*: M25.552 - Pain in left hip ([id number]) XR/XR knee LT 4V*: PAIN LEFT HIP - 2 views: Left knee 4 views CLINICAL HISTORY: Chronic left hip pain COMPARISON: None FINDINGS: Severe degenerative changes of the left hip without acute bony process. Moderate degenerative changes of the right hip. Degenerative changes are also noted involving the visualized lower lumbar spine, SI joints and pubic symphysis. Left knee demonstrates mild degenerative changes without acute bony process. Nojoint effusion. XR/XR hip LT min 2V(w/wo pelvis)* IMPRESSION: SEVERE LEFT AND MODERATE RIGHT DEGENERATIVE CHANGES OF THE HIPS WITHOUT ACUTE BONY PROCESS. MILD DEGENERATIVE CHANGES OF THE LEFT KNEE WITHOUT ACUTE BONY PROCESS.. Impression dictated by: Fernie Dixon Jr., D.OBerry 08/06/2024 4:48 PM Dictation Location: [place] [address] Transcribed By: [facility] 08/06/241647 Dictated By: Fernie Dixon Jr, DO 08/06/241644 Signed By: 08/06/241647 [facility] XR knee LT 4V*on 08-06-2024 XR knee LT 4V* [facility] [address] [place] [address] XRay Report Signed Patient: Doug Courtney MR#: [id number] : 1955 Acct:[id number] Age/Sex: 68 / F ADM Date: 08/06/24 Loc: [facility] Room: Type: [facility] Attending Dr: Bakari Rodriguez II, MD Copies to: Bakari Rodriguez MD Ordering Provider: Bakari Rodriguez MD Date of Service: 08/06/24 XR/XR hip LT min 2V(w/wo pelvis)*: M25.552 - Pain in left hip ([id number]) XR/XR knee LT 4V*: PAIN LEFT HIP - 2 views: Left knee 4 views CLINICAL HISTORY: Chronic left hip pain COMPARISON: None FINDINGS: Severe degenerative changes of the left hip without acute bony process. Moderate degenerative changes of the right hip. Degenerative changes are also noted involving the visualized lower lumbar spine, SI joints and pubic symphysis. Left knee demonstrates mild degenerative changes without acute bony process. No joint effusion. XR/XR hip LT min 2V(w/wo pelvis)* IMPRESSION: SEVERE LEFT AND MODERATE RIGHT DEGENERATIVE CHANGES OF THE HIPS WITHOUT ACUTE BONY PROCESS. MILD DEGENERATIVE CHANGES OF THE LEFT KNEE WITHOUT ACUTE BONY PROCESS.. Impression dictated by: Fernie Dixon Jr., D.O. 08/06/2024 4:48 PM Dictation Location: [facility]- Transcribed By: [facility] 08/06/241647 Dictated By: Fernie Dixon Jr, DO 08/06/241644 Signed By: 08/06/241647 Normal [facility] pH Test strip (U)Ordered By: Ghislaine Kirkpatrick on 08-06-2024 pH (U) pH of Urine by Test strip 5.0-9.0 [facility]LR HEMOGLOBIN A1Con 025 Glucose [Mass/Vol] 123 mg/dL [facility] HbA1c (Bld) [Mass fraction] 5.9 % 4.5 - 6.2 % [facility] Comment on above: ADA RECOMMENDED LIMI T 4.0 - 6.0 ADA THERAPEUTIC TARGET < 7.0 ACTION SUGGESTED > 7.0 [facility] MM TOMOSYNTHESIS SCREENING B Ion 05-06-2024 [place] [address] Mammography Report Signed Patient: DOUG COURTNEY MR#: [id number] : 1955 Acct:[id number] Age/Sex: 68 / F ADM Date: 05/06/24 Loc: MAMMO Attending Dr: Romulo Alvarez M.D. Ordering Physician: Romulo Alvarez M.D. Results: Date of Service: 05/06/24 Follow Up: Procedure(s): MM tomosynthesis screening BI Accession Number(s): [id number] cc: Romulo Alvarez M.D. Patient Name: DOUG COURTNEY MR#: [id number] : 1955 Exam Date: 05/06/2024 Ordering Doctor: DR Romulo Smart RADIOLOGY REPORT PROCEDURE: MM TOMOSYNTHESIS SCREENING BI COMPARISON: MG MAMM SCREEN 3D RODERICK CAD, 01/09/2022. MM TOMOSYNTHESIS SCREENING BI, 03/26/2023. INDICATIONS: Screening Calculator Name NCI Breast Cancer Risk Assessment Tool 5 Year Breast Cancer Risk 1.40% Lifetime Breast Cancer Risk 4.10% Personal Breast Cancer No Personal Ovarian Cancer No Treatments None Family Cancers None LOCATION: [facility] BREAST COMPOSITION: The breasts are almost [...] LUMP SHOULD BE BIOPSIED. Dictated by: Connie Fox MD on 05/06/2024 at 11:58 Approved by: Connie Fox MD on 05/06/2024 at 12:00 Dictated By: Connie Fox M.D. Signed By: 05/06/24 1201 DD/ 1200 TD/TT: Necktie Operator Pockets And Pieces: [facility] Radiology, Radiologist, - 05/06/2024 [place] [address] Mammography Report Signed Patient: DOUG COURTNEY MR#: [id number] : 1955 Acct:[id number] Age/Sex: 68 / F ADM Date: 05/06/24 Loc: MAMMO Attending Dr: Romulo Alvarez M.D. Ordering Physician: Romulo Alvarez M.D. Results: Date of Service: 05/06/24 Follow Up: Procedure(s): MM tomosynthesis screening BI Accession Number(s): [id number] cc: Romulo Alvarez M.D. Patient Name: DOUG COURTNEY MR#: [id number] : 1955 Exam Date: 05/06/2024 Ordering Doctor: DR Romulo Smart RADIOLOGY REPORT PROCEDURE: MM TOMOSYNTHESIS SCREENING BI COMPARISON: MG MAMM SCREEN 3D RODERICK CAD, 01/09/2022. MM TOMOSYNTHESIS SCREENING BI, 03/26/2023. INDICATIONS: Screening Calculator Name NCI Breast Cancer Risk Assessment Tool 5 Year Breast Cancer Risk 1.40% Lifetime Breast Cancer Risk 4.10% Personal Breast Cancer No Personal Ovarian Cancer No Treatments None Family Cancers None LOCATION: [facility] BREAST COMPOSITION: The breasts are almost [...] LUMP SHOULD BE BIOPSIED. Dictated by: Connie Fox MD on 05/06/2024 at 11:58 Approved by: Connie Fox MD on 05/06/2024 at 12:00 Dictated By: Connie Fox M.D. Signed By: 05/06/24 1201 DD/ 1200 TD/TT: Necktie Operator Pockets And Pieces: [facility] Radiology Study observation (narrative) [facility] MM TOMOSYNTHESIS SCREENING B IOrdered By: Radiologist Radiology on 05-06-2024 [facility] Work Phone: Erythrocyte distribution wid th Auto (RBC) [Ratio]on 01-11-2024 Erythrocyte distribution width (RBC) [Ratio] 12.7 % 11.0-15.0 [facility] Estimated glomerular filtrat ion rate (GFR) non- Americanon 01-11-2024 GFR/1.73 sq M.predicted among non-blacks MDRD (S/P/Bld) [Vol rate/Area] 39 mL/min/{1.73_m2} Low >=60 mL/min/1.73 m 2 [facility] HMHP CBC WITH PLATELET NO DI FFERENTIALon 01-11-2024 Erythrocyte distribution width (RBC) [Ratio] 12.7 % 11.0 - 15.0 % [facility] Hematocrit (Bld) [Volume fraction] 41.0 % 36.0 - 48.0 % [facility] Hemoglobin (Bld) [Mass/Vol] 13.0 g/dL 12.0 - 16.0 g/dL [facility] MCH (RBC) [Entitic mass] 29.9 pg 26.7 - 34.0 pg [facility] MCHC (RBC) [Mass/Vol] 31.7 g/dL 29.9 - 35.2 g/dL [facility] MCV (RBC) [Entitic vol] 94.3 fL 81.0 - 99.0 fL [facility] Platelet mean volume (Bld) [Entitic vol] 10.5 fL 9.5 - 13.5 fL [facility]T [facility] WBC 5.2 [facility] Hematocrit Auto (Bld) [Volum e fraction]on 01-11-2024 Hematocrit (Bld) [Volume fraction] 41.0 % 36.0-48.0 [facility] Hemoglobin [Mass/volume] in Bloodon 01-11-2024 Hemoglobin (Bld) [Mass/Vol] 13.0 g/dL 12.0-16.0 [facility] Laboratory - Chemistry and C hemistry - challengeon 01-11-2024 Albumin [Mass/Vol] 3.5 g/dL 3.4-5.0 [facility] Calcium [Mass/Vol] 9.4 mg/dL 8.5-10.1 [facility] Chloride [Moles/Vol] 100 mmol/L 98-107 [facility] CO2 [Moles/Vol] 30.6 mmol/L 21.0-32.0 [facility] Creatinine [Mass/Vol] 1.34 mg/dL High 0.55-1.02 [facility] GFR/1.73 sq M.predicted MDRD (S/P/Bld) [Vol rate/Area] 47 mL/min/{1.73_m2} Low >=60 mL/min/1.73 m 2 [facility] Glucose [Mass/Vol] 107 mg/dL High 74-106 [facility] Magnesium [Mass/Vol] 2.1 mg/dL 1.8-2.4 [facility] Potassium [Moles/Vol] 4.6 mmol/L 3.5-5.1 [facility] Sodium [Moles/Vol] 135 mmol/L Low 136-145 [facility] Urate [Mass/Vol] 4.6 mg/dL 2.6-6.0 [facility] Urea nitrogen [Mass/Vol] 24.0 mg/dL High 7.0-18.0 [facility] Urea nitrogen/Creatinine [Mass ratio] 17.9 mg/mg [facility] Bilirubin Ql (U) Negative NEGATIVE [facility] Glucose (U) [Mass/Vol] mg/dL Abnormal NEGATIVE [facility] Ketones Ql (U) Negative NEGATIVE [facility] pH (U) 7.0 [pH] 5.0-9.0 [facility] Specific gravity (U) [Rel density] 1.020 1.005-1.025 [facility] Urobilinogen Qn (U) 0.2 {Myriam'U}/dL 0.2-1.0 [facility] Laboratory - Specimen inform ationon 01-11-2024 Appearance (U) CLEAR CLEAR [facility] Color (U) YELLOW YELLOW [facility] Laboratory - Urinalysison Leukocyte esterase Test strip Ql (U) Negative NEGATIVE [facility] Mucus Ql (Urine sed) NONE SEEN NONE SEEN [facility] Nitrite Ql (U) Negative NEGATIVE [facility] Protein (U) [Mass/Vol] 15.2 mg/dL High <=11.9 [facility] Protein Ql (U) Negative NEG/TRACE [facility] Leukocytes [#/volume] correc rod for nucleated erythrocytes in Blood by Automated counon 01-11-2024 WBC corrected for nucl RBC Auto (Bld) [#/Vol] 5.2 10 3/uL 4.0-11.0 [facility] MCH Auto (RBC) [Entitic mass ]on 01-11-2024 MCH (RBC) [Entitic mass] 29.9 pg 26.7-34.0 [facility] MCHC Auto (RBC) [Mass/Vol]on 01-11-2024 MCHC (RBC) [Mass/Vol] 31.7 g/dL 29.9-35.2 [facility] MCV Auto (RBC) [Entitic vol] on 01-11-2024 MCV (RBC) [Entitic vol] 94.3 fL 81.0-99.0 [facility] No Panel Informationon 01-10 25-Hydroxy Vitamin D Total 58.3 ng/mL [facility] Comment on above: <20 ng/mL Vit D defi cient20-<30 ng/mL Vit D [id number] ng/mL Vit D sufficient>100 ng/mL Potential Toxicity Parathyroid Hormone (Intact) 36 pg/mL 15-65 [facility] Comment on above: Performed at: [facility] [address] [id number] Director: Rakesh Grace PhD, Phone: [phone] Phosphorus Level 3.8 mg/dL 2.6-4.7 [facility] Urine Bacteria NONE SEEN #/HPF NONE SEEN [facility] Urine Calcium Oxalate Crystals MODERATE [facility] Urine Occult Blood Negative NEGATIVE [facility] Urine Other Casts NONE SEEN #/LPF NONE SEEN [facility] Urine Other Crystals Seen #/HPF Abnormal None Seen [facility] Urine Random Creatinine 94.11 mg/dL 20.0 0-300.0 0 [facility] Urine RBC 0-2 #/HPF 0-2 [facility] Urine Squamous Epithelial Cells NONE SEEN #/LPF NONE/RARE [facility] Urine WBC 0-2 #/HPF Abnormal NONE SEEN [facility] Platelet mean volume Auto (B ld) [Entitic vol]on 01-11-2024 Platelet mean volume (Bld) [Entitic vol] 10.5 fL 9.5-13.5 [facility] Platelets Auto (Bld) [#/Vol] on 01-11-2024 Platelets (Bld) [#/Vol] 270 10 3/uL 150-450 [facility] RBC Auto (Bld) [#/Vol]on RBC (Bld) [#/Vol] 4.35 10 6/uL 4.20-5.40 [facility] Serum or plasma anion gap de terminationon 01-11-2024 Anion gap [Moles/Vol] 9.0 mmol/L [facility] Urine protein/creatinine rat ioon 01-11-2024 Protein/Creatinine (U) [Ratio] 0.16 [facility] Bacteria identified Cx Nom ( U)on 09-20-2023 Service comment (Unsp spec) [Interp] MULTIPLE SPECIES PRESENT. PROBABLE COLLECTION CONTAMINATION. SUGGEST REPEAT SPECIMEN. [facility] BASIC METABOLIC PANLon 09-18 Anion gap [Moles/Vol] 7 mmol/L Normal 5-15 [facility] Comment on above: Performed By: #### C SELAM SALDANA, HA1C #### [facility] ([id number]) [address] [address] [place] [address] Calcium [Mass/Vol] 9.7 mg/dL Normal 8.5-10.5 [facility] Comment on above: Performed By: #### C SELAM SALDANA, HA1C #### [facility] ([id number]) [address], [address] [place] [address] Chloride [Moles/Vol] 99 mmol/L Normal 98-109 [facility] Comment on above: Performed By: #### C SELAM SALDANA, HA1C #### [facility] ([id number]) [address], [address] [place] [address] CO2 [Moles/Vol] 30 mmol/L Normal 22-32 [facility] Comment on above: Performed By: #### SELAM Crandall BCA, HA1C #### [facility] ([id number]) [address], [address] [place] [address] Creatinine [Mass/Vol] 1.09 mg/dL High 0.40-1.00 [facility] Comment on above: Result Comment: METH OD TRACEABLE TO IDMS STANDARD Performed By: #### C SELAM SALDANA, HA1C #### [facility] ([id number]) [address], [address] [place] [address] GFR/1.73 sq M.predicted among non-blacks MDRD (S/P/Bld) [Vol rate/Area] 55 mL/min/{1.73_m2} Low >59 [facility] Comment on above: Result Comment: Reported eGFR is based on the CKD-EPI 2020 equation that does not use a race coefficient. Performed By: #### SELAM Crandall BCA, HA1C #### [facility] ([id number]) [address], [address] [place] [address] Glucose [Mass/Vol] 109 mg/dL High 65-99 [facility] Comment on above: Performed By: #### C SELAM SALDANA HA1C #### [facility] ([id number]) [address] [address] [place] [address] Potassium [Moles/Vol] 4.1 mmol/L Normal 3.5-5.0 [facility] Comment on above: Performed By: #### SELAM Crandall BCA, HA1C #### [facility] ([id number]) [address], [address] [place] [address] Sodium [Moles/Vol] 136 mmol/L Normal 134-146 [facility] Comment on above: Performed By: #### SELAM Crandall BCA, JULIETTE1C #### [facility] ([id number]) [address], [address] [place] [address] Urea nitrogen [Mass/Vol] 26 mg/dL Normal 5-27 [facility] Comment on above: Performed By: #### SELAM Crandall BCA HA1C #### [facility] ([id number]) [address], [address] [place] [address] Basic Metabolic Panelon - Anion gap [Moles/Vol] 7 mmol/L 5 - 15 mmol/L [facility] Calcium [Mass/Vol] 9.7 mg/dL 8.5 - 10. 5 mg/dL [facility] Chloride [Moles/Vol] 99 mmol/L 98 - 10 9 mmol/L [facility] CO2 [Moles/Vol] 30 mmol/L 22 - 32 mmol/L [facility] Creatinine [Mass/Vol] 1.09 mg/dL High 0.40 - 1.00 mg/dL [facility] Comment on above: METHOD TRACEABLE TO [facility] STANDARD eGFR (CKD-EPI)non-race dependent 55 Low - PINF [facility] Comment on above: Reported eGFR is based on the CKD-EPI 2020 equation that does not use a race coefficient. Glucose [Mass/Vol] 109 mg/dL High 65 - 99 mg/dL [facility] Interpretation and review of laboratory results Abnormal [facility] Potassium [Moles/Vol] 4.1 mmol/L 3.5 - 5.0 mmol/L [facility] Sodium [Moles/Vol] 136 mmol/L 134 - 146 mmol/L [facility] Urea nitrogen [Mass/Vol] 26 mg/dL 5 - 27 mg/dL [facility] CBC AND AUTO DIFFon 09-19-19 24 ABSOLUTE BASOPHIL 0.1 X10E9/L Normal 0.0-0.2 [facility] Comment on above: Performed By: #### C SELAM SALDANA, HA1C #### [facility] ([id number]) [address] [address] [place] [address] ABSOLUTE NEUTROPHIL 3.1 X10E9/L Normal 1.5-6.6 [facility] Comment on above: Performed By: #### SELAM Crandall BCA, HA1C #### [facility] ([id number]) [address] [place] [address] Basophils/100 WBC (Bld) 1.1 % Normal [facility] Comment on above: Performed By: #### C SELAM SALDANA, HA1C #### [facility] ([id number]) [address] [address] Eosinophils (Bld) [#/Vol] 0.2 10*3/uL Normal 0.0-0.4 [facility] Comment on above: Performed By: #### SELAM Crandall BCA, HA1C #### [facility] ([id number]) [address] [address] [place] [address] Eosinophils/100 WBC (Bld) 3.6 % Normal [facility] Comment on above: Performed By: #### SELAM Crandall BCA, HA1C #### [facility] ([id number]) [address], [address] [place] [address] Erythrocyte distribution width (RBC) [Ratio] 13.3 % Normal 11.5-15.0 [facility] Comment on above: Performed By: #### C SELAM SALDANA, HA1C #### [facility] ([id number]) [address], [address] [place] [address] Hematocrit (Bld) [Volume fraction] 36.8 % Normal 35-47 [facility] Comment on above: Performed By: #### SELAM Crandall BCA, HA1C #### [facility] ([id number]) [address], [address] [place] [address] Hemoglobin (Bld) [Mass/Vol] 12.0 g/dL Normal 11.7-15.5 [facility] Comment on above: Performed By: #### SELAM Crandall BCA, HA1C #### [facility] ([id number]) [address] [address] [place] [address] Lymphocytes (Bld) [#/Vol] 1.5 10*3/uL Normal 1.0-3.5 [facility] Comment on above: Performed By: #### C SELAM SALDANA, HA1C #### [facility] ([id number]) [address], [address] [place] [address] Lymphocytes/100 WBC (Bld) 26.2 % Normal [facility] Comment on above: Performed By: #### SELAM Crandall BCA, HA1C #### [facility] ([id number]) [address], [address] [place] [address] MCH (RBC) [Entitic mass] 30.0 pg Normal 27-34 [facility] Comment on above: Performed By: #### SELAM Crandall BCA, HA1C #### [facility] ([id number]) [address], [address] [place] [address] MCHC (RBC) [Mass/Vol] 32.6 g/dL Normal 32-36 [facility] Comment on above: Performed By: #### C SELAM SALDANA, HA1C #### [facility] ([id number]) [address] [facility] [address] [place] [address] MCV (RBC) [Entitic vol] 92 fL Normal 80-[address] [facility] Comment on above: Performed By: #### SELAM Crandall BCA, HA1C #### [facility] ([id number]) [address], [address] [place] [address] Monocytes (Bld) [#/Vol] 0.7 10*3/uL Normal 0-0.9 [facility] Comment on above: Performed By: #### SELAM Crandall BCA, HA1C #### [facility] ([id number]) [address], [address] [place] [address] Monocytes/100 WBC (Bld) 13.1 % Normal [facility] Comment on above: Performed By: #### SELAM Crandall BCA, HA1C #### [facility] ([id number]) [address], [address] [place] [address] Neutrophils/100 WBC (Bld) 56.0 % Normal [facility] Comment on above: Performed By: #### SELAM Crandall BCA, HA1C #### [facility] ([id number]) [address] [address] [place] [address] Platelet mean volume (Bld) [Entitic vol] 9.6 fL Normal 7-12 [facility] Comment on above: Performed By: #### SELAM Crandall BCA, HA1C #### [facility] ([id number]) [address], [address] [place] [address] Platelets (Bld) [#/Vol] 274 10*3/uL Normal 150-450 [facility] Comment on above: Performed By: #### SELAM Crandall BCA, HA1C #### [facility] ([id number]) [address], [address] [place] [address] RBC COUNT 4.00 X10E12/L Normal 3.80-5.20 [facility] Comment on above: Performed By: #### SELAM Crandall BCA, HA1C #### [facility] ([id number]) [address], [address] [place] [address] WBC (Bld) [#/Vol] 5.6 10*3/uL Normal 4.0-11.0 [facility] Comment on above: Performed By: #### SELAM Crandall BCA, HA1C #### [facility] ([id number]) [address], [address] [place] [address] CBC auto differentialon 09-07 Basophils (Bld) [#/Vol] 0.1 10*3/uL [facility] Basophils/100 WBC (Bld) 1.1 % [facility] Eosinophils (Bld) [#/Vol] 0.2 10*3/uL [facility] Eosinophils/100 WBC (Bld) 3.6 % [facility] Erythrocyte distribution width (RBC) [Ratio] 13.3 % 11.5 - 15.0 % [facility] Hematocrit (Bld) [Volume fraction] 36.8 % 35 - 47 % [facility] Hemoglobin (Bld) [Mass/Vol] 12.0 g/dL 11.7 - 15.5 g/dL [facility] Lymphocytes (Bld) [#/Vol] 1.5 10*3/uL [facility] Lymphocytes/100 WBC (Bld) 26.2 % [facility] MCH (RBC) [Entitic mass] 30.0 pg 27 - [address] [facility] MCHC (RBC) [Mass/Vol] 32.6 g/dL 32 - 3 6 g/dL [facility] MCV (RBC) [Entitic vol] 92 fL 80 - [address] [facility] Monocytes (Bld) [#/Vol] 0.7 10*3/uL [facility] Monocytes/100 WBC (Bld) 13.1 % P [facility] Neutrophils (Bld) [#/Vol] 3.1 10*3/uL [facility] Neutrophils/100 WBC (Bld) 56.0 % [facility] Platelet mean volume (Bld) [Entitic vol] 9.6 fL 7 - 12 fL [facility] Platelets (Bld) [#/Vol] 274 10*3/uL [facility] RBC (Bld) [#/Vol] 4.00 10*6/uL [facility] WBC corrected for nucl RBC Auto (Bld) [#/Vol] 5.6 [facility] ECG 12 leadon 09-19-2023 TRACEMASTERVUE [facility] HGB A1C (GLYCO-HGB)on 2023 Glucose [Mass/Vol] 131 mg/dL Normal [facility] Comment on above: Performed By: #### C SELAM SALDANA HA1C #### [facility] ([id number]) [address] [place] [address], [address] [place] [address] HbA1c (Bld) [Mass fraction] 6.2 % High 4.4-5.6 [facility] Comment on above: Result Comment: NOTE ADA Guidelines Result HgbA1c Normal : less than 5.7 % Prediabetes : 5.7 % to 6.4 % Diabetes : > 6.4 % Use with caution in patients with abnormal hemoglobin variants as the half-life of red blood cells and in vivo glycation rates are affected. Performed By: #### C SELAM SALDANA, HA1C #### [facility] ([id number]) [address] [facility] [place] [address] Hemoglobin A1con 09-19-2023 Average glucose Estimated from glycated hemoglobin (Bld) [Mass/Vol] 131 mg/dL [facility] HbA1c (Bld) [Mass fraction] 6.2 % High 4.4 - 5.6 % [facility] Comment on above: NOTE ADA Guidelines Result HgbA1c Normal : less than 5.7 % Prediabetes : 5.7 % to 6.4 % Diabetes : > 6.4 % Use with caution in patients with abnormal hemoglobin variants as the half-life of red blood cells and in vivo glycation rates are affected. Interpretation and review of laboratory results Abnormal [facility] URINALYSISon 09-19-2023 Bilirubin Ql (U) Negative Normal NEG [facility] Comment on above: Performed By: #### U A #### [facility] ([id number]) [address] [place] [address], [address] [place] [address] BLOOD/HGB Negative Normal NEG [facility] Comment on above: Performed By: #### U A #### [facility] ([id number]) [address] [place] [address] [address] [place] [address] Color (U) YELLOW Normal YELLOW [facility] Comment on above: Performed By: #### U A #### [facility] ([id number]) [address] [place] [address] [address] [place] [address] Glucose Ql (U) Negative Normal NEG [facility] Comment on above: Performed By: #### U A #### [facility] ([id number]) [address] [place] [address], [address] [place] [address] Hyaline casts LM Ql (Urine sed) 1 /lpf Normal 0-2 [facility] Comment on above: Performed By: #### U A #### [facility] ([id number]) [address], [address] [place] [address] Ketones Ql (U) Negative Normal NEG [facility] Comment on above: Performed By: #### U A #### [facility] ([id number]) [address], [address] [place] [address] Leukocyte esterase Test strip Ql (U) Large Abnormal NEG [facility] Comment on above: Performed By: #### U A #### [facility] ([id number]) [address], [address] [place] [address] MUCOUS PRESENT Abnormal NONE [facility] Comment on above: Performed By: #### U A #### [facility] ([id number]) [address], [address] [place] [address] Nitrite Ql (U) Negative Normal NEG [facility] Comment on above: Performed By: #### U A #### [facility] ([id number]) [address], [address] [place] [address] pH (U) 8.0 [pH] Normal 5.0-8.5 [facility] Comment on above: Performed By: #### U A #### [facility] ([id number]) [address], [address] [place] [address] Protein Ql (U) Trace Abnormal NEG [facility] Comment on above: Performed By: #### U A #### [facility] ([id number]) [address], [address] [place] [address] R.B.CELLS 4 /hpf Normal 0-5 [facility] Comment on above: Performed By: #### U A #### [facility] ([id number]) [address] [place] [address] Specific gravity (U) [Rel density] 1.015 Normal 1.003-1.035 [facility] Comment on above: Performed By: #### U A #### [facility] ([id number]) [address], [address] [place] [address] SQUAMOUS EPITHELIUM 2 /hpf Normal 0-[address] [facility] Comment on above: Performed By: #### U A #### [facility] ([id number]) [address], [address] [place] [address] TRANSITIONAL EPITH <1 High 0 [facility] Comment on above: Performed By: #### U A #### [facility] ([id number]) [address] [address] [place] [address] TURBIDITY HAZY Abnormal CLEAR [facility] Comment on above: Performed By: #### U A #### [facility] ([id number]) [address] [address] [place] [address] Urobilinogen (U) [Mass/Vol] mg/dL Normal <1.1 [facility] Comment on above: Performed By: #### U A #### [facility] ([id number]) [address] [place] [address] W.B.CELLS 60 /hpf High 0-5 [facility] Comment on above: Performed By: #### U A #### [facility] ([id number]) [address] [place] [address] URINE CULTUREon 09-19-2023 Bacteria identified Cx Nom (U) CULTURE RESULTS MULTIPLE SPECIES PRESENT. PROBABLE COLLECTION CONTAMINATION. SUGGEST REPEAT SPECIMEN. Normal [facility] Comment on above: Performed By: #### 6 30-4 #### [facility] ([id number]) [address] [place] [address] Urinalysison 09-19-2023 Bilirubin Ql (U) Negative Negative^Ne gative [facility] Color (U) YELLOW YELLOW^YELL OW [facility] Epithelial cells Auto (Urine sed) [#/Area] 2 [facility] Epithelial cells.non-squamous LM.LPF (Urine sed) [#/Area] High 0 /hpf [facility] Glucose (U) [Mass/Vol] Negative Negat geovani^Ne gative mg/dL [facility] Hemoglobin Auto test strip Ql (U) Negative Negative^Ne gative [facility] Hyaline casts (Urine sed) [#/Area] 1 /[LPF] [facility] Interpretation and review of laboratory results Abnormal [facility] Ketones (U) [Mass/Vol] Negative Negat geovani^Ne gative mg/dL [facility] Leukocyte esterase Auto test strip Ql (U) Large Abnormal Negative^Ne gative [facility] Mucus Ql (Urine sed) PRESENT Abnormal NONE^NONE [facility] Nitrite Auto test strip Ql (U) Negative Negative^Ne gative [facility] pH (U) 8.0 [pH] 5.0 - 8.5 [facility] Protein (U) [Mass/Vol] Trace Abnormal Negat geovani^Ne gative mg/dL [facility] RBC Auto (Urine sed) [#/Area] 4 [facility] Specific gravity Refractometry automated (U) [Rel density] 1.015 1.003 - 1.035 [facility] Turbidity Ql (U) HAZY Abnormal CLEAR^CLEAR [facility] Urobilinogen Qn (U) NINF [facility] WBC Auto (Urine sed) [#/Area] 60 High [facility] XR CHEST 2 VWSon 09-19-2023 XR CHEST 2 VWS XR CHEST 2 VWS XR CHEST 2 VWS INDICATION: Preop examination; Hypertension, unspecified type; Type 2 diabetes mellitus without complication, without long-term current use of insulin ([facility]); Urinary frequency; Former smoker; Osteoarthritis of left hip, unspecified osteoarthritis type. FINDINGS: Cardiac silhouette is normal in size. Trachea midline. No focal pulmonary consolidation. No pleural effusion. No pneumothorax. IMPRESSION: 1. Unremarkable chest radiographs. 61 Finalized by Sincere Charles MD on 09/19/2023 11:47 PM Normal [facility] XR Chest PA and Lateralon XR CHEST 2 VWS INDICATION: Preop examination; Hypertension, unspecified type; Type 2 diabetes mellitus without complication, without long-term current use of insulin ([facility]); Urinary frequency; Former smoker; Osteoarthritis of left hip, unspecified osteoarthritis type. FINDINGS: Cardiac silhouette is normal in size. Trachea midline. No focal pulmonary consolidation. No pleural effusion. No pneumothorax. IMPRESSION: 1. Unremarkable chest radiographs. 61 Finalized by Sincere Charles MD on 09/19/2023 11:47 PM SECTRAPASincere Kramer MD - 09/19/2023 XR CHEST 2 VWS INDICATION: Preop examination; Hypertension, unspecified type; Type 2 diabetes mellitus without complication, without long-term current use of insulin ([facility]); Urinary frequency; Former smoker; Osteoarthritis of left hip, unspecified osteoarthritis type. FINDINGS: Cardiac silhouette is normal in size. Trachea midline. No focal pulmonary consolidation. No pleural effusion. No pneumothorax. IMPRESSION: 1. Unremarkable chest radiographs. 61 Finalized by Sincere Charles MD on 09/19/2023 11:[address] [facility] Radiology Study observation (narrative) [facility] XR Chest PA and LateralOrder ed By: Sincere Charles on 09-19-2023 [facility] Work Phone: PTH INTACTon 09-01-2022 PTH, Intact 26 pg/mL Normal 15-65 [facility] Comment on above: Performed By: #### P THINT #### [facility] [address] [address] [address] Nunu Borges CBC AUTO DIFFon 08-31-2022 BASO # 0.1 103/ul Normal 0.0-0.1 [facility] Comment on above: Performed By: #### U TIFFANIE, MG, RENAL #### [facility] [address] [place], [place] [address] Dr. Nunu Borges Basophils/100 WBC (Bld) 1.2 % Normal 0.2-2.0 [facility] Comment on above: Performed By: #### U TIFFANIE, MG, RENAL #### [facility] [address] [place] [address] Dr. Nunu Borges EO # 0.1 103/ul Normal 0.0-0.7 [facility] Comment on above: Performed By: #### U TIFFANIE, MG, RENAL #### [facility] [address] [place] [address] Dr. Nunu Borges Eosinophils/100 WBC (Bld) 2.2 % Normal 0.9-7.0 [facility] Comment on above: Performed By: #### U TIFFANIE, MG, RENAL #### [facility] [address] [place] [address] Dr. Nunu Borges Erythrocyte distribution width (RBC) [Ratio] 12.7 % Normal 11.0-15.0 [facility] Comment on above: Performed By: #### U TIFFANIE, MG, RENAL #### [facility] [address] [place] [address] Dr. Nunu Borges Hematocrit (Bld) [Volume fraction] 38.0 % Normal 36.0-48.0 [facility] Comment on above: Performed By: #### U TIFFANIE, MG, RENAL #### [facility] [address] [place] [address] Dr. Nunu Borges Hemoglobin (Bld) [Mass/Vol] 12.5 g/dL Normal 12.0-16.0 [facility] Comment on above: Performed By: #### U TIFFANIE, MG, RENAL #### [facility] [address] [place] [address] Dr. Nunu Borges IG # 0.02 10e3/ul Normal 0.00-0.03 [facility] Comment on above: Performed By: #### U TIFFANIE, MG, RENAL #### [facility] [address] [place] [address] Dr. Nunu Bogres IG % 0.3 % Normal 0.0-0.5 [facility] Comment on above: Performed By: #### U TIFFANIE, MG, RENAL #### [facility] [address] [place] [address] Dr. Nunu Borges LYMPH # 1.8 103/ul Normal 1.2-3.8 [facility] Comment on above: Performed By: #### U TIFFANIE, MG, RENAL #### [facility] [address] [place] [address] Dr. Nunu Borges Lymphocytes/100 WBC (Bld) 30.7 % Normal 20.5-60.0 [facility] Comment on above: Performed By: #### U TIFFANIE, MG, RENAL #### [facility] [address] [place] [address] Dr. Nunu Borges MANUAL DIFF REQ NO Normal [facility] Comment on above: Performed By: #### U TIFFANIE, MG, RENAL #### [facility] [address] [place] [address] Dr. Nunu Borges MCH (RBC) [Entitic mass] 29.8 pg Normal 26.7-34.0 [facility] Comment on above: Performed By: #### U TIFFANIE, MG, RENAL #### [facility] [address] [place] [address] Dr. Nunu Borges MCHC (RBC) [Mass/Vol] 32.9 g/dL Normal 29.9-35.2 [facility] Comment on above: Performed By: #### U TIFFANIE, MG, RENAL #### [facility] [address] [place] [address] Dr. Nunu Borges MCV (RBC) [Entitic vol] 90.5 fL Normal 81.0-99.0 [facility] Comment on above: Performed By: #### U TIFFANIE, MG, RENAL #### [facility] [address] [place] [address] Dr. Nunu Borges MONO # 0.7 103/ul Normal 0.3-0.8 [facility] Comment on above: Performed By: #### U TIFFANIE, MG, RENAL #### [facility] [address] [place] [address] Dr. Nunu Borges Monocytes/100 WBC (Bld) 12.4 % Critically high 1.7-12. 0 [facility] Comment on above: Performed By: #### U TIFFANIE, MG, RENAL #### [facility] [address] [address] [address] Nunu Borges NEUT # 3.1 103/ul Normal 1.4-6.5 [facility] Comment on above: Performed By: #### U TIFFANIE, MG, RENAL #### [facility] [address] [place] [address] Dr. Nunu Borges Neutrophils/100 WBC (Bld) 53.2 % Normal 43.0-75.0 [facility] Comment on above: Performed By: #### U TIFFANIE, MG, RENAL #### [facility] [address] [address] [address] Nunu Borges Platelet mean volume (Bld) [Entitic vol] 11.3 fL Normal 9.5-13.5 [facility] Comment on above: Performed By: #### U TIFFANIE, MG, RENAL #### [facility] [address] [place] [address] Dr. Nunu Borges PLT 284 103/ul Normal 150-450 [facility] Comment on above: Performed By: #### U TIFFANIE, MG, RENAL #### [facility] [address] [address] [address] Nunu Borges RBC 4.20 106/ul Normal 4.20-5.40 [facility] Comment on above: Performed By: #### U TIFFANIE, MG, RENAL #### [facility] [address] [place] [address] Dr. Nunu Borges WBC 5.9 103/ul Normal 4.0-11.0 [facility] Comment on above: Performed By: #### U TIFFANIE, MG, RENAL #### [facility] [address] [place] [address] Dr. Nunu Borges FERRITINon 08-31-2022 Ferritin [Mass/Vol] 66.0 ng/mL Normal 8.0-252.0 [facility] Comment on above: Performed By: #### U TIFFANIE, MG, RENAL #### [facility] [address] [place] [address] Dr. Nunu Borges GLYCOHEMOGLOBIN A1Con 2022 ADA RECOMMENDATION SEE BELOW Normal [facility] Comment on above: Result Comment: ADA RECOMMENDED LIMIT 4.0 - 6.0 ADA THERAPEUTIC TARGET < 7.0 ACTION SUGGESTED > 7.0 Performed By: #### U TIFFANIE, MG, RENAL #### [facility] [address] [address] [address] Nunu Borges Glucose [Mass/Vol] 134 mg/dL Normal [facility] Comment on above: Performed By: #### U TIFFANIE, MG, RENAL #### [facility] [address] [address] [address] Nunu Borges HbA1c (Bld) [Mass fraction] 6.3 % Critically high 4.5-6.2 [facility] Comment on above: Performed By: #### U TIFFANIE, MG, RENAL #### [facility] [address] [address] [address] Nunu Borges IRON AND TIBCon 08-31-2022 % SATURATION 25.9 % Normal [facility] Comment on above: Performed By: #### U TFIFANIE, MG, RENAL #### [facility] [address] [address] [address] Nunu Borges Iron [Mass/Vol] 90.0 ug/dL Normal 50.0-170.0 [facility] Comment on above: Performed By: #### U TIFFANIE, MG, RENAL #### [facility] [address] [address] [address] Nunu Borges TIBC DIRECT 348.0 ug/dL Normal 250.0-450.0 [facility] Comment on above: Performed By: #### U TIFFANIE, MG, RENAL #### [facility] [address] [address] [address] Nunu Borges LIPID PROFILEon 08-31-2022 CHOL-HDL RATIO NORM SEE BELOW Normal [facility] Comment on above: Result Comment: 3.3 - 4.4 LOW RISK 4.4 - 7.1 AVERAGE RISK 7.1 - 11.0 MODERATE RISK >11.0 HIGH RISK Performed By: #### U TIFFANIE, MG, RENAL #### [facility] [address] [address] [address] Nunu Borges Cholesterol [Mass/Vol] 152 mg/dL Normal <=200 Th [facility] Comment on above: Performed By: #### U TIFFANIE, MG, RENAL #### [facility] [address] [address] [address] Nunu Borges Cholesterol in HDL [Mass/Vol] 77 mg/dL Critically high 40-60 [facility] Comment on above: Performed By: #### U TIFFANIE, MG, RENAL #### [facility] [address] [address] [address] Nunu Borges Cholesterol in LDL [Mass/Vol] 63.2 mg/dL Normal [facility] Comment on above: Performed By: #### U TIFFANIE, MG, RENAL #### [facility] [address] [place] [address] Dr. Nunu Borges Cholesterol.total/Vilma sterol in HDL [Mass ratio] 2.0 {ratio} Normal [facility] Comment on above: Performed By: #### U TIFFANIE, MG, RENAL #### [facility] [address] [address] [address] Nunu Borges HDL NORMAL > or = 60 mg/dl - LOW CARDIOVASCULAR RISK <40 mg/dl - HIGH CARDIOVASCULAR RISK Normal [facility] Comment on above: Performed By: #### U TIFFANIE, MG, RENAL #### [facility] [address] [place] [address] Dr. Nunu Borges LDL CALC NORMAL SEE BELOW Normal [facility] Comment on above: Result Comment: <100 mg/dl OPTIMAL 100 - 129 mg/dl NEAR OR ABOVE OPTIMAL 130 - 159 mg/dl BORDERLINE HIGH 160 - 189 mg/dl HIGH >190 mg/dl VERY HIGH Performed By: #### U TIFFANIE, MG, RENAL #### [facility] [address] [address] [address] Nunu Borges Triglyceride [Mass/Vol] 59 mg/dL Normal <=150 T [facility] Comment on above: Performed By: #### U TIFFANIE, MG, RENAL #### [facility] [address] [place] [address] Dr. Nunu Borges VLDL CALC 11.8 mg/dL Normal [facility] Comment on above: Performed By: #### U TIFFANIE, MG, RENAL #### [facility] [address] [address] [address] Nunu Borges LIVER PROFILEon 08-31-2022 Albumin/Globulin [Mass ratio] 1.1 {ratio} Normal [facility] Comment on above: Performed By: #### U TIFFANIE, MG, RENAL #### [facility] [address] [address] [address] Nunu Borges ALP [Catalytic activity/Vol] 129 U/L Critically high 46-116 [facility] Comment on above: Performed By: #### U TIFFANIE, MG, RENAL #### [facility] [address] [address] [address] Nunu Borges ALT [Catalytic activity/Vol] 32 U/L Normal 14-59 [facility] Comment on above: Performed By: #### U TIFFANIE, MG, RENAL #### [facility] [address] [address] [address] Nunu Borges AST [Catalytic activity/Vol] 20 U/L Normal 15-37 [facility] Comment on above: Performed By: #### U TIFFANIE, MG, RENAL #### [facility] [address] [address] [address] Nunu Borges BILI, CONJUGATED 0.2 mg/dL Normal 0.0-0.2 [facility] Comment on above: Performed By: #### U TIFFANIE, MG, RENAL #### [facility] [address] [address] [address] Nunu Borges Bilirubin [Mass/Vol] 0.8 mg/dL Normal 0.2-1.0 [facility] Comment on above: Performed By: #### U TIFFANIE, MG, RENAL #### [facility] [address] [address] [address] Nunu Borges Globulin (S) [Mass/Vol] 3.6 g/dL Normal T [facility] Comment on above: Performed By: #### U TIFFANIE, MG, RENAL #### [facility] [address] [address] [address] Nunu Borges Protein [Mass/Vol] 7.5 g/dL Normal 6.4-8.2 [facility] Comment on above: Performed By: #### U TIFFANIE, MG, RENAL #### [facility] [address] [address] [address] Nunu Borges MAGNESIUMon 08-31-2022 Magnesium [Mass/Vol] 1.8 mg/dL Normal 1.8-2.4 [facility] Comment on above: Performed By: #### U TIFFANIE, MG, RENAL #### [facility] [address] [address] [address] Nunu Borges MICROALBUMIN, RAND URon 08-08 mALB <1.3 Normal <=30.0 [facility] Comment on above: Performed By: #### U TIFFANIE, MG, RENAL #### [facility] [address] [place] [address] Dr. Nunu Borges PROF CHEM 8 (BAS METB)on Anion gap [Moles/Vol] 14.3 mmol/L Normal [facility] Comment on above: Performed By: #### U TIFFANIE, MG, RENAL #### [facility] [address] [address] [address] Nunu Borges CO2 [Moles/Vol] 27.7 mmol/L Normal 21.0-32.0 [facility] Comment on above: Performed By: #### U TIFFANIE, MG, RENAL #### [facility] [address] [place] [address] Dr. Nunu Borges Glucose [Mass/Vol] 119 mg/dL Critically high 74-106 T [facility] Comment on above: Performed By: #### U TIFFANIE, MG, RENAL #### [facility] [address] [place] [address] Dr. Nunu Borges Urea nitrogen/Creatinine [Mass ratio] 22.7 mg/mg Normal [facility] Comment on above: Performed By: #### U TIFFANIE, MG, RENAL #### [facility] [address] [place] [address] Dr. Nunu Borges RENAL FUNCTION PANELon 08-31 Albumin [Mass/Vol] 3.9 g/dL Normal 3.4-5.0 [facility] Comment on above: Performed By: #### U TIFFANIE, MG, RENAL #### [facility] [address] [address] [address] Nunu Borges Calcium [Mass/Vol] 9.7 mg/dL Normal 8.5-10.1 [facility] Comment on above: Performed By: #### U TIFFANIE, MG, RENAL #### [facility] [address] [place] [address] Dr. Nunu Borges Chloride [Moles/Vol] 99 mmol/L Normal 98-107 [facility] Comment on above: Performed By: #### U TIFFANIE, MG, RENAL #### [facility] [address] [place] [address] Dr. Nunu Borges CO2 [Moles/Vol] 28.0 mmol/L Normal 21.0-32.0 [facility] Comment on above: Performed By: #### U TIFFANIE, MG, RENAL #### [facility] [address] [place] [address] Dr. Nunu Borges Creatinine [Mass/Vol] 1.32 mg/dL Critically high 0.55-1.02 [facility] Comment on above: Performed By: #### U TIFFANIE, MG, RENAL #### [facility] [address] [place] [address] Dr. Nunu Borges EGFR-AF [place] 49 mL/min/1.73m2 Critically low >=60 [facility] Comment on above: Performed By: #### U TIFFANIE, MG, RENAL #### [facility] [address] [place] [address] Dr. Nunu Borges EGFR-NON AF [place] 40 mL/min/1.73m2 Critically low >=60 [facility] Comment on above: Performed By: #### U TIFFANIE, MG, RENAL #### [facility] [address] [place] [address] Dr. Nunu Borges Glucose [Mass/Vol] 118 mg/dL Critically high 74-106 [facility] Comment on above: Performed By: #### U TIFFANIE, MG, RENAL #### [facility] [address] [place] [address] Dr. Nunu Borges Phosphate [Mass/Vol] 3.6 mg/dL Normal 2.6-4.7 [facility] Comment on above: Performed By: #### U TIFFANIE, MG, RENAL #### [facility] [address] [place] [address] Dr. Nunu Borges Potassium [Moles/Vol] 4.0 mmol/L Normal 3.5-5.1 [facility] Comment on above: Performed By: #### U TIFFANIE, MG, RENAL #### [facility] [address] [place] [address] Dr. Nunu Borges Sodium [Moles/Vol] 137 mmol/L Normal 136-145 [facility] Comment on above: Performed By: #### U TIFFANIE, MG, RENAL #### [facility] [address] [place] [address] Dr. Nunu Borges Urea nitrogen [Mass/Vol] 30.0 mg/dL Critically high 7.0-18.0 [facility] Comment on above: Performed By: #### U TIFFANIE, MG, RENAL #### [facility] [address] [place] [address] Dr. Nunu Borges UA RANDOM W/MICROSCOPICon BACTERIA NONE SEEN Normal NONE SEEN [facility] Comment on above: Performed By: #### U AMIC #### [facility] [address] [place] [address] Dr. Nunu Borges Bilirubin Ql (U) Negative Normal NEGATIVE [facility] Comment on above: Performed By: #### U AMIC #### [facility] [address] [place] [address] Dr. Nunu Borges CAST NONE SEEN Normal NONE SEEN [facility] Comment on above: Performed By: #### U AMIC #### [facility] [address] [place] [address] Dr. Nunu Borges Clarity (U) CLEAR Normal CLEAR [facility] Comment on above: Performed By: #### U AMIC #### [facility] [address] [place] [address] Dr. Nunu Borges Color (U) LT. YELLOW Normal YELLOW [facility] Comment on above: Performed By: #### U AMIC #### [facility] [address] [address] [address] Nunu Borges Crystals LM Nom (Urine sed) NONE SEEN Normal NONE SEEN [facility] Comment on above: Performed By: #### U AMIC #### [facility] [address] [address] [address] Nunu Borges Epithelial cells LM Ql (Urine sed) FEW Abnormal NONE SEEN /RARE [facility] Comment on above: Performed By: #### U AMIC #### [facility] [address] [address] [address] Nunu Borges Glucose Ql (U) Negative Normal NEGATIVE [facility] Comment on above: Performed By: #### U AMIC #### [facility] [address] [address] [address] Nunu Borges Hemoglobin Ql (U) Negative Normal NEGATIVE [facility] Comment on above: Performed By: #### U AMIC #### [facility] [address] [address] [address] Nunu Borges Ketones Ql (U) Negative Normal NEGATIVE [facility] Comment on above: Performed By: #### U AMIC #### [facility] [address] [address] [address] Nunu Borges LEUKOCYTES TRACE Abnormal NEGATIVE [facility] Comment on above: Performed By: #### U AMIC #### [facility] [address] [address] [address] Nunu Borges MUCOUS NONE SEEN Normal NONE SEEN [facility] Comment on above: Performed By: #### U AMIC #### [facility] [address] [address] [address] Nunu Borges Nitrite Ql (U) Negative Normal NEGATIVE [facility] Comment on above: Performed By: #### U AMIC #### [facility] [address] [address] [address] Nunu Borges pH (U) 6.0 [pH] Normal 5-9 [facility] Comment on above: Performed By: #### U AMIC #### [facility] [address] [place] [address] Dr. Nunu Borges RBC NONE SEEN Abnormal 0-2 [facility] Comment on above: Performed By: #### U AMIC #### [facility] [address] [place] [address] Dr. Nunu Borges SPEC GRAVITY 1.015 Normal 1.005-<=1.0 25 [facility] Comment on above: Performed By: #### U AMIC #### [facility] [address] [place] [address] Dr. Nunu Borges UA PROTEIN Negative Normal NEGATIVE/ TRACE [facility] Comment on above: Performed By: #### U AMIC #### [facility] [address] [place] [id number] Dr. Nunu Borges Urobilinogen Qn (U) 0.2 {Myriam'U}/dL Normal 0.2 - 1. 0 [facility] Comment on above: Performed By: #### U AMIC #### [facility] [address] [place] [address] Dr. Nunu Borges WBC 2-5 Abnormal NONE SEEN [facility] Comment on above: Performed By: #### U AMIC #### [facility] [address] [place] [address] Dr. Nunu Borges URIC ACID SERUMon 08-31-2022 Urate [Mass/Vol] 6.3 mg/dL Critically high 2.6-6.0 [facility] Comment on above: Performed By: #### U TIFFANIE, MG, RENAL #### [facility] [address] [place] [address] Dr. Nunu Borges URINE T PROTEIN CREAT RATIOo n 08-31-2022 Protein (U) [Mass/Vol] 13.3 mg/dL Critically high <=12.0 [facility] Comment on above: Performed By: #### U TIFFANIE, MG, RENAL #### [facility] [address] [place] [address] Dr. Nunu Borges UR PROT CREAT RAT 0.11 Normal [facility] Comment on above: Performed By: #### U TIFFANIE, MG, RENAL #### [facility] [address] [address] [address] Nunu Borges URINE CREAT 121.05 mg/dL Normal 20.00-300.0 0 [facility] Comment on above: Performed By: #### U TIFFANIE, MG, RENAL #### [facility] [address] [address] [address] Nunu Borges VITAMIN D 25 OHon 08-31-2022 VIT D 25-OH 79.7 ng/mL Normal [facility] Comment on above: Performed By: #### U TIFFANIE, MG, RENAL #### [facility] [address] [place] [address] Dr. Nunu Borges VIT D RANGES SEE BELOW Normal [facility] Comment on above: Result Comment: <20 ng/mL Vit D deficient 20 - <30 ng/mL Vit D insufficient 30 - 100 ng/mL Vit D sufficient >100 ng/mL Potential Toxicity Performed By: #### U TIFFANIE, MG, RENAL #### [facility] [address] [place] [address] Dr. Nunu Borges POINT OF CARE GLUCOSEon 04- Glucose [Mass/Vol] 132 mg/dL Critically high 74-106 [facility] Comment on above: Performed By: #### U AMIC #### [facility] [address] [place] [address] Dr. Nunu Borges PTH INTACTon 02-15-2022 PTH, Intact 36 pg/mL Normal 15-65 [facility] Comment on above: Performed By: #### U TIFFANIE, MG, RENAL #### [facility] [address] [place] [address] Dr. Nunu Borges UA RANDOM W/MICROSCOPICon BACTERIA TRACE Abnormal NONE SEEN [facility] Comment on above: Performed By: #### U AMIC #### [facility] [address] [place] [address] Dr. Nunu Borges Bilirubin Ql (U) Negative Normal NEGATIVE [facility] Comment on above: Performed By: #### U AMIC #### [facility] [address] [place] [address] Dr. Nunu Borges CAST NONE SEEN Normal NONE SEEN [facility] Comment on above: Performed By: #### U AMIC #### [facility] [address] [place] [address] Dr. Nunu Borges Clarity (U) CLEAR Normal CLEAR [facility] Comment on above: Performed By: #### U AMIC #### [facility] [address] [address] [address] Nunu Borges Color (U) LT. YELLOW Normal YELLOW [facility] Comment on above: Performed By: #### U AMIC #### [facility] [address] [place] [address] Dr. Nunu Borges Crystals LM Nom (Urine sed) NONE SEEN Normal NONE SEEN [facility] Comment on above: Performed By: #### U AMIC #### [facility] [address] [place] [address] Dr. Nunu Borges Epithelial cells LM Ql (Urine sed) FEW Abnormal NONE SEEN /RARE [facility] Comment on above: Performed By: #### U AMIC #### [facility] [address] [place] [address] Dr. Nunu Borges Glucose Ql (U) Negative Normal NEGATIVE [facility] Comment on above: Performed By: #### U AMIC #### [facility] [address] [place] [address] Dr. Nunu Borges Hemoglobin Ql (U) Negative Normal NEGATIVE [facility] Comment on above: Performed By: #### U AMIC #### [facility] [address] [address] [address] Nunu Borges Ketones Ql (U) Negative Normal NEGATIVE [facility] Comment on above: Performed By: #### U AMIC #### [facility] [address] [place] [address] Dr. Nunu Borges LEUKOCYTES SMALL Abnormal NEGATIVE [facility] Comment on above: Performed By: #### U AMIC #### [facility] [address] [place] [address] Dr. Nunu Borges MUCOUS NONE SEEN Normal NONE SEEN [facility] Comment on above: Performed By: #### U AMIC #### [facility] [address] [address] [address] Nunu Borges Nitrite Ql (U) Negative Normal NEGATIVE [facility] Comment on above: Performed By: #### U AMIC #### [facility] [address] [address] [address] Nunu Borges pH (U) 7.0 [pH] Normal 5-9 [facility] Comment on above: Performed By: #### U AMIC #### [facility] [address] [address] [address] Nunu Borges RBC NONE SEEN Abnormal 0-2 [facility] Comment on above: Performed By: #### U AMIC #### [facility] [address] [place] [address] Dr. Nunu Borges SPEC GRAVITY 1.010 Normal 1.005-<=1.0 25 [facility] Comment on above: Performed By: #### U AMIC #### [facility] [address] [address] [address] Nunu Borges UA PROTEIN Negative Normal NEGATIVE/ TRACE [facility] Comment on above: Performed By: #### U AMIC #### [facility] [address] [place] [address] Dr. Nunu Borges Urobilinogen Qn (U) 0.2 {Myriam'U}/dL Normal 0.2 - 1. 0 [facility] Comment on above: Performed By: #### U AMIC #### [facility] [address] [address] [address] Nunu Borges WBC 5-10 Abnormal NONE SEEN [facility] Comment on above: Performed By: #### U AMIC #### [facility] [address] [address] [address] Nunu Borges FERRITINon 02-13-2022 Ferritin [Mass/Vol] 72.0 ng/mL Normal 8.0-252.0 [facility] Comment on above: Performed By: #### U TIFFANIE, MG, RENAL #### [facility] [address] [place] [address] Dr. Nunu Borges GLYCOHEMOGLOBIN A1Con 2021 ADA RECOMMENDATION SEE BELOW Normal [facility] Comment on above: Result Comment: ADA RECOMMENDED LIMIT 4.0 - 6.0 ADA THERAPEUTIC TARGET < 7.0 ACTION SUGGESTED > 7.0 Performed By: #### A 1C #### [facility] [address] [place] [address] Dr. Nnuu Borges Glucose [Mass/Vol] 143 mg/dL Normal [facility] Comment on above: Performed By: #### A 1C #### [facility] [address] [place] [address] Dr. Nunu Borges HbA1c (Bld) [Mass fraction] 6.6 % Critically high 4.5-6.2 [facility] Comment on above: Performed By: #### A 1C #### [facility] [address] [place] [address] Dr. Nuun Borges HEMOGRAM AND PLATELon 2021 Hematocrit (Bld) [Volume fraction] 36.1 % Normal 36.0-48.0 [facility] Comment on above: Performed By: #### U TIFFANIE, MG, RENAL #### [facility] [address] [place] [address] Dr. Nunu Borges Hemoglobin (Bld) [Mass/Vol] 11.5 g/dL Critically low 12.0-16.0 [facility] Comment on above: Performed By: #### U TIFFANIE, MG, RENAL #### [facility] [address] [place] [address] Dr. Nunu Borges MCH (RBC) [Entitic mass] 29.1 pg Normal 26.7-34.0 [facility] Comment on above: Performed By: #### U TIFFANIE, MG, RENAL #### [facility] [address] [place] [address] Dr. Nunu Borges MCHC (RBC) [Mass/Vol] 31.9 g/dL Normal 29.9-35.2 [facility] Comment on above: Performed By: #### U TIFFANIE, MG, RENAL #### [facility] [address] [place] [address] Dr. Nunu Borges MCV (RBC) [Entitic vol] 91.4 fL Normal 81.0-99.0 [facility] Comment on above: Performed By: #### U TIFFANIE, MG, RENAL #### [facility] [address] [address] [address] Nunu Borges PLT 348 103/ul Normal 150-450 [facility] Comment on above: Performed By: #### U TIFFANIE, MG, RENAL #### [facility] [address] [place] [address] Dr. Nunu Borges RBC 3.95 106/ul Critically low 4.20-5.40 [facility] Comment on above: Performed By: #### U TIFFANIE, MG, RENAL #### [facility] [address] [place] [address] Dr. Nunu Borges WBC 4.4 103/ul Normal 4.0-11.0 [facility] Comment on above: Performed By: #### U TIFFANIE, MG, RENAL #### [facility] [address] [address] [address] Nunu Borges IRON AND TIBCon 02-13-2022 % SATURATION 17.1 % Normal [facility] Comment on above: Performed By: #### U TIFFANIE, MG, RENAL #### [facility] [address] [place] [address] Dr. Nunu Borges Iron [Mass/Vol] 56.0 ug/dL Normal 50.0-170.0 [facility] Comment on above: Performed By: #### U TIFFANIE, MG, RENAL #### [facility] [address] [place] [address] Dr. Nunu Borges TIBC DIRECT 327.0 ug/dL Normal 250.0-450.0 [facility] Comment on above: Performed By: #### U TIFFANIE, MG, RENAL #### [facility] [address] [place] [address] Dr. Nunu Borges MAGNESIUMon 02-13-2022 Magnesium [Mass/Vol] 1.8 mg/dL Normal 1.8-2.4 [facility] Comment on above: Performed By: #### U TIFFANIE, MG, RENAL #### [facility] [address] [place] [address] Dr. Nunu Borges RENAL FUNCTION PANELon 02-13 Albumin [Mass/Vol] 3.7 g/dL Normal 3.4-5.0 [facility] Comment on above: Performed By: #### U TIFFANIE, MG, RENAL #### [facility] [address] [place] [address] Dr. Nunu Borges Calcium [Mass/Vol] 9.4 mg/dL Normal 8.5-10.1 [facility] Comment on above: Performed By: #### U TIFFANIE, MG, RENAL #### [facility] [address] [place] [address] Dr. Nunu Borges Chloride [Moles/Vol] 100 mmol/L Normal 98-107 [facility] Comment on above: Performed By: #### U TIFFANIE, MG, RENAL #### [facility] [address] [place] [address] Dr. Nunu Borges CO2 [Moles/Vol] 30.0 mmol/L Normal 21.0-32.0 [facility] Comment on above: Performed By: #### U TIFFANIE, MG, RENAL #### [facility] [address] [place] [address] Dr. Nunu Borges Creatinine [Mass/Vol] 1.31 mg/dL Critically high 0.55-1.02 [facility] Comment on above: Performed By: #### U TIFFANIE, MG, RENAL #### [facility] [address] [place] [address] Dr. Nunu Borges EGFR-AF [place]ER 49 mL/min/1.73m2 Critically low >=60 [facility] Comment on above: Performed By: #### U TIFFANIE, MG, RENAL #### [facility] [address] [place] [address] Dr. Nunu Borges EGFR-NON AF [place]ER 40 mL/min/1.73m2 Critically low >=60 [facility] Comment on above: Performed By: #### U TIFFANIE, MG, RENAL #### [facility] [address] [place] [address] Dr. Nunu Borges Glucose [Mass/Vol] 98 mg/dL Normal 74-106 [facility] Comment on above: Performed By: #### U TIFFANIE, MG, RENAL #### [facility] [address] [address] [address] Nunu Borges Phosphate [Mass/Vol] 3.0 mg/dL Normal 2.6-4.7 [facility] Comment on above: Performed By: #### U TIFFANIE, MG, RENAL #### [facility] [address] [address] [address] Nunu Borges Potassium [Moles/Vol] 4.4 mmol/L Normal 3.5-5.1 [facility] Comment on above: Performed By: #### U TIFFANIE, MG, RENAL #### [facility] [address] [place] [address] Dr. Nunu Borges Sodium [Moles/Vol] 133 mmol/L Critically low 136-145 [facility] Comment on above: Performed By: #### U TIFFANIE, MG, RENAL #### [facility] [address] [place] [address] Dr. Nunu Borges Urea nitrogen [Mass/Vol] 23.0 mg/dL Critically high 7.0-18.0 [facility] Comment on above: Performed By: #### U TIFFANIE, MG, RENAL #### [facility] [address] [place] [address] Dr. Nunu Borges URIC ACID SERUMon 02-13-2022 Urate [Mass/Vol] 5.9 mg/dL Normal 2.6-6.0 [facility] Comment on above: Performed By: #### U TIFFANIE, MG, RENAL #### [facility] [address] [place] [address] Dr. Nunu Borges VITAMIN D 25 OHon 02-13-2022 VIT D 25-OH 70.3 ng/mL Normal [facility] Comment on above: Performed By: #### U TIFFANIE, MG, RENAL #### [facility] [address] [place] [address] Dr. Nunu Borges VIT D RANGES SEE BELOW Normal [facility] Comment on above: Result Comment: <20 ng/mL Vit D deficient 20 - <30 ng/mL Vit D insufficient 30 - 100 ng/mL Vit D sufficient >100 ng/mL Potential Toxicity Performed By: #### U TIFFANIE, MG, RENAL #### [facility] [address] [place] [address] Dr. Nunu Borges CBC AUTO DIFFon 01-27-2022 BASO # 0.0 103/ul Normal 0.0-0.1 [facility] Comment on above: Performed By: #### U TIFFANIE, MG, RENAL #### [facility] [address] [place] [address] Dr. Nunu Borges Basophils/100 WBC (Bld) 0.2 % Normal 0.2-2.0 [facility] Comment on above: Performed By: #### U TIFFANIE, MG, RENAL #### [facility] [address] [place] [address] Dr. Nunu Borges EO # 0.1 103/ul Normal 0.0-0.7 [facility] Comment on above: Performed By: #### U TIFFANIE, MG, RENAL #### [facility] [address] [place] [address] Dr. Nunu Borges Eosinophils/100 WBC (Bld) 0.9 % Normal 0.9-7.0 [facility] Comment on above: Performed By: #### U TIFFANIE, MG, RENAL #### [facility] [address] [place] [address] Dr. Nunu Borges Erythrocyte distribution width (RBC) [Ratio] 12.5 % Normal 11.0-15.0 [facility] Comment on above: Performed By: #### U TIFFANIE, MG, RENAL #### [facility] [address] [place] [address] Dr. Nunu Borges Hematocrit (Bld) [Volume fraction] 32.5 % Critically low 36.0-48.0 [facility] Comment on above: Performed By: #### U TIFFANIE, MG, RENAL #### [facility] [address] [place] [address] Dr. Nunu Borges Hemoglobin (Bld) [Mass/Vol] 10.9 g/dL Critically low 12.0-16.0 [facility] Comment on above: Performed By: #### U TIFFANIE, MG, RENAL #### [facility] [address] [address] [address] Nunu Borges IG # 0.14 10e3/ul Critically high 0.00-0.03 [facility] Comment on above: Performed By: #### U TIFFANIE, MG, RENAL #### [facility] [address] [address] [address] Nunu Borges IG % 1.5 % Critically high 0.0-0.5 [facility] Comment on above: Performed By: #### U TIFFANIE, MG, RENAL #### [facility] [address] [place] [address] Dr. Nunu Borges LYMPH # 1.5 103/ul Normal 1.2-3.8 [facility] Comment on above: Performed By: #### U TIFFANIE, MG, RENAL #### [facility] [address] [place] [address] Dr. Nunu Borges Lymphocytes/100 WBC (Bld) 15.5 % Critically low 20.5-60.0 [facility] Comment on above: Performed By: #### U TIFFANIE, MG, RENAL #### [facility] [address] [place] [address] Dr. Nunu Borges MANUAL DIFF REQ NO Normal [facility] Comment on above: Performed By: #### U TIFFANIE, MG, RENAL #### [facility] [address] [place] [address] Dr. Nunu Borges MCH (RBC) [Entitic mass] 29.6 pg Normal 26.7-34.0 [facility] Comment on above: Performed By: #### U TIFFANIE, MG, RENAL #### [facility] [address] [place] [address] Dr. Nunu Borges MCHC (RBC) [Mass/Vol] 33.5 g/dL Normal 29.9-35.2 [facility] Comment on above: Performed By: #### U TIFFANIE, MG, RENAL #### [facility] [address] [place] [address] Dr. Nunu Borges MCV (RBC) [Entitic vol] 88.3 fL Normal 81.0-99.0 [facility] Comment on above: Performed By: #### U TIFFANIE, MG, RENAL #### [facility] [address] [address] [address] Nunu Borges MONO # 1.2 103/ul Critically high 0.3-0.8 [facility] Comment on above: Performed By: #### U TIFFANIE, MG, RENAL #### [facility] [address] [address] [address] Nunu Borges Monocytes/100 WBC (Bld) 12.9 % Critically high 1.7-12. 0 [facility] Comment on above: Performed By: #### U TIFFANIE, MG, RENAL #### [facility] [address] [place] [address] Dr. Nunu Borges NEUT # 6.5 103/ul Normal 1.4-6.5 [facility] Comment on above: Performed By: #### U TIFFANIE, MG, RENAL #### [facility] [address] [place] [address] Dr. Nunu Borges Neutrophils/100 WBC (Bld) 69.0 % Normal 43.0-75.0 [facility] Comment on above: Performed By: #### U TIFFANIE, MG, RENAL #### [facility] [address] [place] [address] Dr. Nunu Borges Platelet mean volume (Bld) [Entitic vol] 11.8 fL Normal 9.5-13.5 [facility] Comment on above: Performed By: #### U TIFFANIE, MG, RENAL #### [facility] [address] [place] [address] Dr. Nunu Borges PLT 239 103/ul Normal 150-450 [facility] Comment on above: Performed By: #### U TIFFANIE, MG, RENAL #### [facility] [address] [place] [address] Dr. Nunu Borges RBC 3.68 106/ul Critically low 4.20-5.40 [facility] Comment on above: Performed By: #### U TIFFANIE, MG, RENAL #### [facility] [address] [place] [address] Dr. Nunu Borges WBC 9.4 103/ul Normal 4.0-11.0 [facility] Comment on above: Performed By: #### U TIFFANIE, MG, RENAL #### [facility] [address] [place] [address] Dr. Nunu Borges POINT OF CARE GLUCOSEon 10-2 Glucose [Mass/Vol] 226 mg/dL Critically high 74-106 [facility] Comment on above: Performed By: #### U TIFFANIE, MG, RENAL #### [facility] [address] [place] [address] Dr. Nunu Borges PROF CHEM 8 (BAS METB)on Anion gap [Moles/Vol] 10.5 mmol/L Normal [facility] Comment on above: Performed By: #### U TIFFANIE, MG, RENAL #### [facility] [address] [place] [address] Dr. Nunu Borges Calcium [Mass/Vol] 8.2 mg/dL Critically low 8.5-10.1 [facility] Comment on above: Performed By: #### U TIFFANIE, MG, RENAL #### [facility] [address] [place] [address] Dr. Nunu Borges Chloride [Moles/Vol] 103 mmol/L Normal 98-107 [facility] Comment on above: Performed By: #### U TIFFANIE, MG, RENAL #### [facility] [address] [place] [address] Dr. Nunu Borges CO2 [Moles/Vol] 26.0 mmol/L Normal 21.0-32.0 [facility] Comment on above: Performed By: #### U TIFFANIE, MG, RENAL #### [facility] [address] [place] [address] Dr. Nunu Borges Creatinine [Mass/Vol] 1.04 mg/dL Critically high 0.55-1.02 [facility] Comment on above: Performed By: #### U TIFFANIE, MG, RENAL #### [facility] [address] [place] [address] Dr. Nunu Borges EGFR-AF [place]ER >60 Normal >=60 [facility] Comment on above: Performed By: #### U TIFFANIE, MG, RENAL #### [facility] [address] [place] [address] Dr. Nunu Borges EGFR-NON AF [place]ER 53 mL/min/1.73m2 Critically low >=60 [facility] Comment on above: Performed By: #### U TIFFANIE, MG, RENAL #### [facility] [address] [place] [address] Dr. Nunu Borges Glucose [Mass/Vol] 91 mg/dL Normal 74-106 [facility] Comment on above: Performed By: #### U TIFFANIE, MG, RENAL #### [facility] [address] [place] [address] Dr. Nunu Borges Potassium [Moles/Vol] 3.5 mmol/L Normal 3.5-5.1 [facility] Comment on above: Performed By: #### U TIFFANIE, MG, RENAL #### [facility] [address] [place] [address] Dr. Nunu Borges Sodium [Moles/Vol] 136 mmol/L Normal 136-145 [facility] Comment on above: Performed By: #### U TIFFANIE, MG, RENAL #### [facility] [address] [place] [address] Dr. Nunu Borges Urea nitrogen [Mass/Vol] 32.0 mg/dL Critically high 7.0-18.0 [facility] Comment on above: Performed By: #### U TIFFANIE, MG, RENAL #### [facility] [address] [place] [address] Dr. Nunu Borges Urea nitrogen/Creatinine [Mass ratio] 30.8 mg/mg Normal [facility] Comment on above: Performed By: #### U TIFFANIE, MG, RENAL #### [facility] [address] [place] [address] Dr. Nunu Borges CBC AUTO DIFFon 01-26-2022 BASO # 0.0 103/ul Normal 0.0-0.1 [facility] Comment on above: Performed By: #### C BC #### [facility] [address] [address] [address] Nunu Borges Basophils/100 WBC (Bld) 0.1 % Critically low 0.2-2.0 [facility] Comment on above: Performed By: #### C BC #### [facility] [address] [address] [address] Nunu Borges EO # 0.1 103/ul Normal 0.0-0.7 [facility] Comment on above: Performed By: #### C BC #### [facility] [address] [address] [address] Nunu Borges Eosinophils/100 WBC (Bld) 0.4 % Critically low 0.9-7.0 [facility] Comment on above: Performed By: #### C BC #### [facility] [address] [place] [address] Dr. Nunu Borges Erythrocyte distribution width (RBC) [Ratio] 12.2 % Normal 11.0-15.0 [facility] Comment on above: Performed By: #### C BC #### [facility] [address] [place] [address] Dr. Nunu Borges Hematocrit (Bld) [Volume fraction] 36.7 % Normal 36.0-48.0 [facility] Comment on above: Performed By: #### C BC #### [facility] [address] [place] [address] Dr. Nunu Borges Hemoglobin (Bld) [Mass/Vol] 12.1 g/dL Normal 12.0-16.0 [facility] Comment on above: Performed By: #### C BC #### [facility] [address] [address] [address] Nunu Borges IG # 0.42 10e3/ul Critically high 0.00-0.03 [facility] Comment on above: Performed By: #### C BC #### [facility] [address] [address] [address] Nunu Borges IG % 2.4 % Critically high 0.0-0.5 [facility] Comment on above: Performed By: #### C BC #### [facility] [address] [address] [address] Nunu Borges LYMPH # 0.8 103/ul Critically low 1.2-3.8 [facility] Comment on above: Performed By: #### C BC #### [facility] [address] [place] [address] Dr. Nunu Borges Lymphocytes/100 WBC (Bld) 4.5 % Critically low 20.5-60.0 [facility] Comment on above: Performed By: #### C BC #### [facility] [address] [place] [address] Dr. Nunu Borges MANUAL DIFF REQ NO Normal [facility] Comment on above: Performed By: #### C BC #### [facility] [address] [place] [address] Dr. Nunu Borges MCH (RBC) [Entitic mass] 29.2 pg Normal 26.7-34.0 [facility] Comment on above: Performed By: #### C BC #### [facility] [address] [place] [address] Dr. Nunu Borges MCHC (RBC) [Mass/Vol] 33.0 g/dL Normal 29.9-35.2 [facility] Comment on above: Performed By: #### C BC #### [facility] [address] [place] [address] Dr. Nunu Borges MCV (RBC) [Entitic vol] 88.6 fL Normal 81.0-99.0 [facility] Comment on above: Performed By: #### C BC #### [facility] [address] [place] [address] Dr. Nunu Borges MONO # 1.4 103/ul Critically high 0.3-0.8 [facility] Comment on above: Performed By: #### C BC #### [facility] [address] [place] [address] Dr. Nunu Borges Monocytes/100 WBC (Bld) 7.6 % Normal 1.7-12.0 [facility] Comment on above: Performed By: #### C BC #### [facility] [address] [place] [address] Dr. Nunu Borges NEUT # 15.0 103/ul Critically high 1.4-6.5 [facility] Comment on above: Performed By: #### C BC #### [facility] [address] [place] [address] Dr. Nunu Borges Neutrophils/100 WBC (Bld) 85.0 % Critically high 43.0-75.0 [facility] Comment on above: Performed By: #### C BC #### [facility] [address] [place] [address] Dr. Nunu Borges Platelet mean volume (Bld) [Entitic vol] 11.5 fL Normal 9.5-13.5 [facility] Comment on above: Performed By: #### C BC #### [facility] [address] [place] [address] Dr. Nunu Borges PLT 277 103/ul Normal 150-450 [facility] Comment on above: Performed By: #### C BC #### [facility] [address] [place] [address] Dr. Nunu Borges RBC 4.14 106/ul Critically low 4.20-5.40 [facility] Comment on above: Performed By: #### C BC #### [facility] [address] [place] [address] Dr. Nunu Borges WBC 17.7 103/ul Critically high 4.0-11.0 [facility] Comment on above: Performed By: #### C BC #### [facility] [address] [place] [address] Dr. Nunu Borges CULTURE BLOODon 01-26-2022 Microscopic examination of blood, culture Culture Observations: NO GROWTH AT 5 DAYS. Normal [facility] Comment on above: Performed By: #### U AMIC #### [facility] [address] [place] [address] Dr. Nunu Borges Microscopic examination of blood, culture Culture Observations: NO GROWTH AT 5 DAYS. Normal [facility] Comment on above: Performed By: #### U AMIC #### [facility] [address] [place] [address] Dr. Nunu Borges CULTURE URINEon 01-26-2022 CULTURE URINE Culture Observations: LIGHT GROWTH OF MIXED GENITAL GABRIELLE. NO POTENTIAL PATHOGENS SEEN. Normal [facility] Comment on above: Performed By: #### U AMIC #### [facility] [address] [place] [address] Dr. Nunu Borges Covid-19 PCR ([facility])on 01-08 SARS-CoV-2 (COVID-19) RNA GREG+probe Ql (Unsp spec) Detected Critically abnormal NOT DETECTED [facility] Comment on above: Result Comment: This test is not yet approved or cleared by the [place] FDA. When there are no FDA-approved or cleared tests available, and other criteria are met, FDA can make tests available under an emergency access mechanism called an Emergency Use Authorization (EUA). The EUA for this test is supported by the [place] of Health and Human Service's declaration that [...] used). Performed By: #### C VDTBH #### [facility] [address] [place] [address] Dr. Nunu Borges ER URINE PROFILEon Bilirubin Ql (U) Negative Normal NEGATIVE [facility] Comment on above: Performed By: #### U AMIC #### [facility] [address] [place] [address] Dr. Nunu Borges Clarity (U) CLEAR Normal CLEAR [facility] Comment on above: Performed By: #### U AMIC #### [facility] [address] [place] [address] Dr. Nunu Borges Color (U) LT. YELLOW Normal YELLOW [facility] Comment on above: Performed By: #### U AMIC #### [facility] [address] [place] [address] Dr. Nunu Borges ERUAHD A micrscopic examination will be performed if indicated. Normal [facility] Comment on above: Performed By: #### U AMIC #### [facility] [address] [address] [address] Nunu Borges Glucose Ql (U) Negative Normal NEGATIVE [facility] Comment on above: Performed By: #### U AMIC #### [facility] [address] [address] [address] Nunu Borges Hemoglobin Ql (U) Negative Normal NEGATIVE [facility] Comment on above: Performed By: #### U AMIC #### [facility] [address] [address] [address] Nunu Borges Ketones Ql (U) Negative Normal NEGATIVE [facility] Comment on above: Performed By: #### U AMIC #### [facility] [address] [place] [address] Dr. Nunu Borges LEUKOCYTES MODERATE Abnormal NEGATIVE [facility] Comment on above: Performed By: #### U AMIC #### [facility] [address] [address] [address] Nunu Borges Nitrite Ql (U) Negative Normal NEGATIVE [facility] Comment on above: Performed By: #### U AMIC #### [facility] [address] [place] [address] Dr. Nunu Borges pH (U) 6.0 [pH] Normal 5-9 [facility] Comment on above: Performed By: #### U AMIC #### [facility] [address] [address] [address] Nunu Borges SPEC GRAVITY 1.010 Normal 1.005-<=1.0 25 [facility] Comment on above: Performed By: #### U AMIC #### [facility] [address] [address] [address] Nunu Borges UA PROTEIN Negative Normal NEGATIVE/ TRACE [facility] Comment on above: Performed By: #### U AMIC #### [facility] [address] [place] [address] Dr. Nunu Borges UR MICRO IND INDICATED Normal [facility] Comment on above: Performed By: #### U AMIC #### [facility] [address] [address] [address] Nunu Borges Urobilinogen Qn (U) 0.2 {Myriam'U}/dL Normal 0.2 - 1. 0 [facility] Comment on above: Performed By: #### U AMIC #### [facility] [address] [address] [address] Nunu Borges POINT OF CARE GLUCOSEon 01-08 Glucose [Mass/Vol] 262 mg/dL Critically high 74-106 [facility] Comment on above: Performed By: #### U TIFFANIE, MG, RENAL #### [facility] [address] [address] [address] Nunu Borges PROF CHEM 8 (BAS METB)on Anion gap [Moles/Vol] 18.7 mmol/L Normal [facility] Comment on above: Performed By: #### U AMIC #### [facility] [address] [address] [address] Nunu Borges Calcium [Mass/Vol] 9.0 mg/dL Normal 8.5-10.1 [facility] Comment on above: Performed By: #### U AMIC #### [facility] [address] [address] [address] Nunu Borges Chloride [Moles/Vol] 95 mmol/L Critically low 98-107 [facility] Comment on above: Performed By: #### U AMIC #### [facility] [address] [address] [address] Nunu Borges CO2 [Moles/Vol] 20.6 mmol/L Critically low 21.0-32.0 [facility] Comment on above: Performed By: #### U AMIC #### [facility] [address] [place] [address] Dr. Nunu Borges Creatinine [Mass/Vol] 1.79 mg/dL Critically high 0.55-1.02 [facility] Comment on above: Performed By: #### U AMIC #### [facility] [address] [place] [address] Dr. Nunu Borges EGFR-AF [place] 21 mL/min/1.73m2 Critically low >=60 [facility] Comment on above: Performed By: #### U AMIC #### [facility] [address] [address] [address] Nunu Borges EGFR-NON AF [place] 18 mL/min/1.73m2 Critically low >=60 [facility] Comment on above: Performed By: #### U AMIC #### [facility] [address] [address] [address] Nunu Borges Glucose [Mass/Vol] 261 mg/dL Critically high 74-106 [facility] Comment on above: Performed By: #### U AMIC #### [facility] [address] [address] [address] Nunu Borges Potassium [Moles/Vol] 4.3 mmol/L Normal 3.5-5.1 [facility] Comment on above: Performed By: #### U AMIC #### [facility] [address] [address] [address] Nunu Borges Sodium [Moles/Vol] 130 mmol/L Critically low 136-145 [facility] Comment on above: Performed By: #### U AMIC #### [facility] [address] [address] [address] Nunu Borges Urea nitrogen [Mass/Vol] 54.0 mg/dL Critically high 7.0-18.0 [facility] Comment on above: Performed By: #### U AMIC #### [facility] [address] [address] [address] Nunu Borges Urea nitrogen/Creatinine [Mass ratio] 30.2 mg/mg Normal [facility] Comment on above: Performed By: #### U AMIC #### [facility] [address] [place] [address] Dr. Nunu Borges URINE MICROSCOPIC ONLYon BACTERIA TRACE Abnormal NONE SEEN [facility] Comment on above: Performed By: #### U AMIC #### [facility] [address] [place], [place] [id number] Dr. Nunu Borges Bacteria identified Cx Nom (U) INDICATED Normal [facility] Comment on above: Performed By: #### U AMIC #### [facility] [address] [place] [address] Dr. Nunu Borges CAST SEEN Abnormal NONE SEEN [facility] Comment on above: Performed By: #### U AMIC #### [facility] [address] [place] [address] Dr. Nunu Borges Crystals LM Nom (Urine sed) NONE SEEN Normal NONE SEEN [facility] Comment on above: Performed By: #### U AMIC #### [facility] [address] [place] [address] Dr. Nunu Borges Epithelial cells LM Ql (Urine sed) RARE Normal NONE SEEN /RARE [facility] Comment on above: Performed By: #### U AMIC #### [facility] [address] [place] [address] Dr. Nunu Borges HYALINE CAST RARE Normal [facility] Comment on above: Performed By: #### U AMIC #### [facility] [address] [place] [address] Dr. Nunu Borges MUCOUS NONE SEEN Normal NONE SEEN [facility] Comment on above: Performed By: #### U AMIC #### [facility] [address] [place] [address] Dr. Nunu Borges RBC 0-2 Normal 0-2 [facility] Comment on above: Performed By: #### U AMIC #### [facility] [address] [place] [address] Dr. Nunu Borges WBC 2-5 Abnormal NONE SEEN [facility] Comment on above: Performed By: #### U AMIC #### [facility] [address] [place] [address] Dr. Nunu Borges Covid-19 PCR ([facility])on 01-07 SARS-CoV-2 (COVID-19) RNA GREG+probe Ql (Unsp spec) Detected Critically abnormal NOT DETECTED [facility] Comment on above: Result Comment: This test is not yet approved or cleared by the [place] FDA. When there are no FDA-approved or cleared tests available, and other criteria are met, FDA can make tests available under an emergency access mechanism called an Emergency Use Authorization (EUA). The EUA for this test is supported by the [place] of Health and Human Service's declaration that [...] for this test is supported by the [place] of Health and Human Service's (HHS's) declaration [...] longer be used). Performed By: #### C [facility] #### [facility] [address] [place] [address] Dr. Nunu Borges MG MAMM SCREEN 3D RODERICK CADon 01-09-2022 MG MAMM SCREEN 3D RODERICK CAD Patient: DOUG COURTNEY Exam Date: 01/09/2022 : 1955 Gender:F Ordering : DR ROMULO ALVAREZ . Admission #: [id number] Family : Order #: [id number] CLICK HERE TO VIEW EXAM RADIOLOGY REPORT PROCEDURE: MAMMOGRAM SCREENING 3D BILATERAL CAD COMPARISON: MG MAMM SCREEN 3D RODERICK CAD, 10/25/2020. MG MAMM SCREEN RODERCIK W CAD, 10/22/2019. INDICATIONS: Screening mammography Calculator Name NCI Breast Cancer Risk Assessment Tool 5 Year Breast Cancer Risk 1.40% Lifetime Breast Cancer Risk 4.60% Personal Breast Cancer No Personal Ovarian Cancer No Treatments None Family Cancers None LOCATION: [facility] BREAST COMPOSITION: Almost entirely fatty. FINDINGS: [...] LUMP SHOULD BE BIOPSIED. Dictated by: Connie Fox MD on 01/09/2022 at 12:49 Approved by: Connie Fox MD on 01/09/2022 at 12:50 Normal [facility] Cytologyon 07-20-2020 Cytology (NOTE) INTERPRETATION Cervical material, (ThinPrep vial, Imaging-assisted review): Specimen Adequacy: Satisfactory for evaluation. - Endocervical/trans formation zone component present. Descriptive Diagnosis: Negative for intraepithelial lesion or malignancy. Traveling Phlebotomist: CARLOS Steward(ASCP) Electronically Signed Out chris/07/22/2020 Source: 1: Cervical material, (ThinPrep vial, Imaging-assisted review) Clinical History Postmenopausal Z12.4 Encounter for screening for malignant neoplasm of cervix GYNECOLOGIC CYTOLOGY REPORT Patient Name: DOUG COURTNEY Nahomy Med Rec: [id number] Path Number: [id number] [facility] ANATOMIC PATHOLOGY [address] [place] [id number] [facility] Comment on above: Performed By: #### P PPVP #### [address] [address] Picking Belt Operator: Jeremiah Acosta MD Main OR Intraoperative Recor handy 11-06-2017 Main OR Intraoperative Record IntraOp Document Type FTURO Summary Primary Physician: Juan Delarosa Jr., MD Finalized Date/Time: 11/06/17 12:28:35 Pt. Name: GAGANDEEPSHERRYDOUG./Sex: 1955 Female Med Rec #: [id number] Physician: Juan Delarosa Jr., MD Financial #: [id number] Pt. Type: O Room/Bed: / Admit/Disch: 10/11/17 12:38:00 - 10/11/17 23:59:00 Institution: Case Times FTURO Entry 1 Patient Times In Room 10/11/17 13:16:00 Out Room 10/11/17 13:22:00 Procedure Times Start 10/11/17 13:18:00 Stop 10/11/17 13:21:00 Anesthesia Times Last Modified By: Kristyn PRADHAN, SAADOR, Keerthi Matthew 10/11/17 13:21:50 Case Attendance FTURO Entry 1 Entry 2 Entry 3 Case Attendee Kristyn RN, CNOR, Keerthi Islas CST, [place] Delarosa Jr., MD, Juan Rios Role Performed Waitstaff - Primary Scrub - Primary Surgeon - Primary Time In 10/11/17 13:16:00 10/11/17 13:16:00 10/11/17 13:18:00 Time Out 10/11/17 13:22:00 10/11/17 13:22:00 10/11/17 13:22:00 Procedure CYSTOSCOPY LOCAL(.) CYSTOSCOPY LOCAL(.) CYSTOSCOPY LOCAL(.) Comments Last Modified By: Kristyn PRADHAN, SAADOR, Keerthi Simons RN, SAADOR, Keerthi Simons RN, SAADOR, Keerthi Matthew 10/11/17 13:21:53 10/11/17 13:21:53 10/11/17 13:21:53 Surgical Procedures FTURO Entry 1 Procedure Description Procedure CYSTOSCOPY LOCAL Modifiers . Surgeon Description CYSTOSCOPY with dilitation Primary Procedure Yes Primary Surgeon Washington Bennett MD, Juan Rios Start 10/11/17 13:18:00 Stop 10/11/17 13:21:00 Anesthesia Type Local Surgical Service Urology Wound Class 2 - Clean-Contaminated Last Modified By: Kristyn PRADHAN, SAADOR, Keerthi Matthew 10/11/17 13:21:46 General Case Data FTURO Pre-Care Text: Classifies surgical wound, implements aseptic technique, initiates traffic control Entry 1 Case Information OR URO 1 FT Case Level None Wound Class 2 - Clean-Contaminated Specialty Urology Preop Diagnosis GROSS HEMATURIA, RENAL Postop Same As Preop No FAILURE Postop Diagnosis GROSS HEMATURIA, RENAL Outcomes Met? Yes FAILURE, urethral stenosis Last Modified By: SAAD Simons RNOR, Keerthi Matthew 10/11/17 13:22:28 Post-Care Text: The patient is [...] Position Verified Availability Equipment, Medication Time Out Juan Delarosa Jr., MD, Verified (If Participants KIET Simons RN, Keerthi Applicable) Janel Matthew DENTISTRY PROFESSOR, [place] Time Out Complete 10/11/17 13:18:00 Allergies Reviewed? Yes Allergies Reviewed Self/Patient With Body Position Frog Legged Prep Area PERINIUM Prep Agents Betadine Solution Skin. Condition Intact, [place], Warm, and Dry Additional None Specimens Collected [...] Simons RN, Lou Ann 11/06/17 12:28 Normal [facility] Main OR Preoperative Recordo n 11-06-2017 Main OR Preoperative Record Holding Area Document Type FTURO Summary Primary Physician: Juan Delarosa Jr., MD Finalized Date/Time: 11/06/17 12:28:41 Pt. Name: DOUG COURTNEY/Sex: 1955 Female Med Rec #: [id number] Physician: Juan Delarosa Jr., MD Financial #: [id number] Pt. Type: O Room/Bed: / Admit/Disch: 10/11/17 [...] of Pain: No Comment: Skin Integrity Intact, [place], Warm, & Dry Vitals - EU Blood Pressure 98/55 Pulse 76 bpm Respirations 18 br/min SPO2 RN Reviewed Yes Last Modified By: KIET Simons RN, Lou Ann 10/11/17 13:00:54 Finalized By: KIET Simons RN, Lou Ann Document Signatures Signed By: KIET Simons RN, Lou Ann 10/11/17 13:00 Karen Rutherford LPN 10/11/17 12:58 KIET Simons RN, Lou Ann 11/06/17 12:28 Normal [facility] Coding Summary.on 10-19-2017 Coding Summary. CODING DATE: 10/19/2017 FINAL [facility] STATUS: Home (Routine DC) PAYOR: Commercial [...] Saldaña Date Saved: 10/19/2017 08:52 am Normal [facility] Operative Reporton 8 Operative Report Patient: DOUG COURTNEY Age: 61 years Sex: Female : 1955 Associated Diagnoses: None Author: Juan Delarosa Jr., MD Procedure Operative Information Details: Date/ Time: 10/11/17 13:25:00. 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 Post-Op Dx: Same. Anesthesia Type: Local. Procedure: Local Cystoscopy with Urethral Dilation. Complications: None. Risks/Benefits/Inf ormed Consent: Surgical risks, benefits, details of the [...] urine. The Urethra was dilated to: 30 Kinyarwanda w/ sounds. Devices Implanted: None. Removal: Cystoscope [...] negative. This completes her hematuria workup.. Normal [facility] Comment on above: Result Comment: Elec tronically Signed By: Juan Delarosa Jr., MD\.br\Date and Time Signed: 10/11/17 13:26 EDT Vital Signs Date Time Vital Sign Value Performing Clinician Facility 08-19-2024 15:42-0400 Body height 172.7 cm Vianey Timmy DPM Work Phone: [facility] 08-19-2024 15:42-0400 Body mass index (BMI) [Ratio] 21.9 kg/m2 Vianey Timmy DPM Work Phone: [facility] 08-19-2024 15:42-0400 Body weight 65.32 kg Vianey Timmy DPM Work Phone: [facility] 08-06-2024 11:30-0400 Body height 154.94 cm Romulo Alvarez MD Work Phone: [facility] 08-06-2024 11:30-0400 Body mass index (BMI) [Ratio] 27.8 kg/m2 Romulo Alvarez MD Work Phone: [facility] 08-06-2024 11:30-0400 Body weight 66.67 kg Romulo Alvarez MD Work Phone: [facility] 02-28-2024 13:17-0500 Body height 172.7 cm Romulo Alvarez MD Work Phone: [facility] 02-28-2024 13:17-0500 Body mass index (BMI) [Ratio] 23.11 kg/m2 Romulo Alvarez MD Work Phone: [facility] 02-28-2024 13:17-0500 Body temperature 97.11 [degF] Romulo Alvarez MD Work Phone: [facility] 02-28-2024 13:17-0500 Body weight 68.95 kg Romulo Alvarez MD Work Phone: [facility] 02-28-2024 13:17-0500 Diastolic blood pressure 80 mm[Hg] Romulo Alvarez MD Work Phone: [facility] 02-28-2024 13:17-0500 Heart rate 85 /min Romulo Alvarez MD Work Phone: [facility] 02-28-2024 13:17-0500 Respiratory rate 22 /min Romulo Alvarez MD Work Phone: [facility] 02-28-2024 13:17-0500 SaO2% (BldA) [Mass fraction] 98 % Romulo Alvarez MD Work Phone: [facility] 02-28-2024 13:17-0500 Systolic blood pressure 136 mm[Hg] Romulo Alvarez MD Work Phone: [facility] 01-31-2024 12:34-0400 Body mass index (BMI) [Ratio] 28.7 kg/m2 [facility] 01-31-2024 12:34-0400 Diastolic blood pressure 74 mm[Hg] [facility] 01-31-2024 12:34-0400 Systolic blood pressure 122 mm[Hg] [facility] 01-31-2024 11:12-0400 Body height 154.94 cm [facility] 01-31-2024 11:12-0400 Body temperature 96.8 [degF] [place] 01-31-2024 11:12-0400 Body weight 69 kg [facility] 01-31-2024 11:12-0400 Heart rate 85 /min [facility] 01-31-2024 11:12-0400 Respiratory rate 18 /min [place] 01-31-2024 11:12-0400 SaO2% (BldA) [Mass fraction] 98 % [facility] 01-10-2024 08:45-0400 Body height 172.7 cm Vianey HALLM Work Phone: [facility] 01-10-2024 08:45-0400 Body mass index (BMI) [Ratio] 22.66 kg/m2 Vianey HALLM Work Phone: [facility] 01-10-2024 08:45-0400 Body weight 67.59 kg Vianey HALLM Work Phone: [facility] 12-11-2023 13:17-0400 Body height 172.7 cm Romulo Alvarez MD Work Phone: [facility] 12-11-2023 13:17-0400 Body mass index (BMI) [Ratio] 22.2 kg/m2 Romulo Alvarez MD Work Phone: [facility] 12-11-2023 13:17-0400 Body temperature 97.11 [degF] Romulo Alvarez MD Work Phone: [facility] 12-11-2023 13:17-0400 Body weight 66.22 kg Romulo Alvarez MD Work Phone: [facility] 12-11-2023 13:17-0400 Diastolic blood pressure 64 mm[Hg] Romulo Alvarez MD Work Phone: [facility] 12-11-2023 13:17-0400 Heart rate 77 /min Romulo Alvarez MD Work Phone: [facility] 12-11-2023 13:17-0400 Respiratory rate 20 /min Romulo Alvarez MD Work Phone: [facility] 12-11-2023 13:17-0400 SaO2% (BldA) [Mass fraction] 96 % Romulo Alvarez MD Work Phone: [facility] 12-11-2023 13:17-0400 Systolic blood pressure 122 mm[Hg] Romulo Alvarez MD Work Phone: [facility] 09-19-2023 10:12-0400 Body height 172.[address] [facility] 09-19-2023 10:12-0400 Body mass index (BMI) [Ratio] 26.15 kg/m2 Pmh [facility] 09-19-2023 10:12-0400 Body weight 78.[address] [facility] 04-05-2023 10:00-0500 Body height 154.94 cm Ghislaine Kirkpatrick Other [employer] Other 04-05-2023 10:00-0500 Body mass index (BMI) [Ratio] 29.85 kg/m2 Ghislaine Ada Other [employer] Other 04-05-2023 10:00-0500 Body temperature 97.2 [degF] Ghislaine Ada Other [employer] Other 04-05-2023 10:00-0500 Body weight 71.67 kg Ghislaine Ada Other [employer] Other 04-05-2023 10:00-0500 Diastolic blood pressure 60 mm[Hg] Ghislaine Ada Other [employer] Other 04-05-2023 10:00-0500 Respiratory rate 18 /min Ghislaine Ada Other [employer] Other 04-05-2023 10:00-0500 SaO2% (BldA) [Mass fraction] 98 % Ghislaine Ada Other [employer] Other 04-05-2023 10:00-0500 Systolic blood pressure 124 mm[Hg] Ghislaine Ada Other [employer] Other 09-07-2022 14:00-0400 Body height 154.94 cm Ghislaine Ada Other [employer] Other 09-07-2022 14:00-0400 Body mass index (BMI) [Ratio] 29.47 kg/m2 Ghislaine Ada Other [employer] Other 09-07-2022 14:00-0400 Body temperature 97.3 [degF] Ghislaine Ada Other [employer] Other 09-07-2022 14:00-0400 Body weight 70.76 kg Ghislaine Ada Other [employer] Other 09-07-2022 14:00-0400 Diastolic blood pressure 70 mm[Hg] Ghislaine Ada Other [employer] Other 09-07-2022 14:00-0400 Respiratory rate 18 /min Ghislaine Ada Other [employer] Other 09-07-2022 14:00-0400 SaO2% (BldA) [Mass fraction] 97 % Ghislaine Ada Other [employer] Other 09-07-2022 14:00-0400 Systolic blood pressure 110 mm[Hg] Ghislaine Ada Other [employer] Other 03-23-2022 11:20-0500 Body height 154.94 cm Ghislaine Ada Other [employer] Other 03-23-2022 11:20-0500 Body mass index (BMI) [Ratio] 28.75 kg/m2 Ghislaine Ada Other [employer] Other 03-23-2022 11:20-0500 Body temperature 96.2 [degF] Ghislaine Ada Other [employer] Other 03-23-2022 11:20-0500 Body weight 69.04 kg Ghislaine Ada Other [employer] Other 03-23-2022 11:20-0500 Diastolic blood pressure 80 mm[Hg] Ghislaine Ada Other [employer] Other 03-23-2022 11:20-0500 Respiratory rate 18 /min Ghislaine Ada Other [employer] Other 03-23-2022 11:20-0500 SaO2% (BldA) [Mass fraction] 96 % Ghislaine Ada Other [employer] Other 03-23-2022 11:20-0500 Systolic blood pressure 122 mm[Hg] Ghislaine Ada Other [employer] Other 09-01-2021 11:00-0400 Body height 154.94 cm Ghislaine Ada Other [employer] Other 09-01-2021 11:00-0400 Body mass index (BMI) [Ratio] 31.29 kg/m2 Ghislaine Ada Other [employer] Other 09-01-2021 11:00-0400 Body temperature 96.8 [degF] Ghislaine Ada Other [employer] Other 09-01-2021 11:00-0400 Body weight 75.12 kg Ghislaine Ada Other [employer] Other 09-01-2021 11:00-0400 Diastolic blood pressure 74 mm[Hg] Ghislaine Ada Other [employer] Other 09-01-2021 11:00-0400 Respiratory rate 18 /min Ghislaine Ada Other [employer] Other 09-01-2021 11:00-0400 SaO2% (BldA) [Mass fraction] 97 % Ghislaine Ada Other [employer] Other 09-01-2021 11:00-0400 Systolic blood pressure 130 mm[Hg] Ghislaine Ada Other [employer] Other 02-10-2021 10:20-0400 Body height 154.94 cm Ghislaine Ada Other [employer] Other 02-10-2021 10:20-0400 Body mass index (BMI) [Ratio] 30.83 kg/m2 Ghislaine Ada Other [employer] Other 02-10-2021 10:20-0400 Body temperature 96 [degF] Ghislaine Ada Other [employer] Other 02-10-2021 10:20-0400 Body weight 74.03 kg Ghislaine Ada Other [employer] Other 02-10-2021 10:20-0400 Diastolic blood pressure 74 mm[Hg] Ghislaine Ada Other [employer] Other 02-10-2021 10:20-0400 Respiratory rate 18 /min Ghislaine Ada Other [employer] Other 02-10-2021 10:20-0400 SaO2% (BldA) [Mass fraction] 94 % Ghislaine Ada Other [employer] Other 02-10-2021 10:20-0400 Systolic blood pressure 110 mm[Hg] Ghislaine Ada Other [employer] Other Encounters Encounter Date Encounter Type Care Provider Facility Start: 08-19-2024 End: 08-19-2024 ambulatory VIANEY MELTON Not Available Start: 08-19-2024 End: 08-19-2024 Office outpatient visit 15 minutes Vianey Melton DPM Work Phone: [facility] Comment on above: 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, not stated as uncontrolled(250.60) (CMS/[facility]) (Primary Dx); Nail dystrophy; Onychomycosis; Pain in toes of both feet Start: 08-19-2024 End: 08-19-2024 Bamboo flowsheet Vianey Melton DPM Work Phone: [facility] Start: 08-19-2024 End: 08-19-2024 Bamboo flowsheet Vianey Melton DPM Work Phone: [facility] Start: 08-06-2024 End: 08-06-2024 ambulatory Romulo Alvarez MD Work Phone: [facility] Work Phone: Start: 08-06-2024 End: 08-06-2024 Patient encounter procedure Romulo Alvarez MD Work Phone[facility] Work Phone: Start: 08-03-2024 End: 08-04-2024 Refill Romulo Alvarez MD Work Phone: [facility] Comment on above: Degeneration of inte rvertebral disc of lumbar region with discogenic back pain Start: 07-23-2024 End: 07-23-2024 Telephone encounter Jr. Brock Kumar DO Work Phone: [facility] Comment on above: Medicine Start: 07-22-2024 End: 07-22-2024 Bamboo flowsheet Jr. Brock Kumar DO Work Phone: [facility] Start: 07-22-2024 End: 07-22-2024 Bamboo flowsheet Jr. Brock Kumar DO Work Phone: [facility] Start: 07-22-2024 End: 07-22-2024 Office outpatient visit 15 minutes Jr. Brock Kumar DO Work Phone: [facility] Comment on above: Primary osteoarthrit is of left hip (Primary Dx); Left hip pain Start: 07-22-2024 End: 07-22-2024 ambulatory BROCK BENNETT Not Available Start: 07-18-2024 End: 07-18-2024 Telephone encounter Jr. Brock Kumar DO Work Phone: [facility] Comment on above: Hip Start: 07-09-2024 End: 07-09-2024 Refill Romulo Alvarez MD Work Phone: [facility] Comment on above: Degeneration of inte rvertebral disc of lumbar region with discogenic back pain Start: 07-06-2024 End: 07-07-2024 Refill Romluo Alvarez MD Work Phone: [facility] Comment on above: KENZIE (generalized anx iety disorder) (CMS/[facility]); Degeneration of intervertebral disc of lumbar region with discogenic back pain Start: 06-10-2024 End: 06-10-2024 Refill Romulo Alvarez MD Work Phone: [facility] Comment on above: Degeneration of inte rvertebral disc of lumbar region with discogenic back pain Start: 06-03-2024 End: 06-04-2024 Refill Romulo Alvarez MD Work Phone: [facility] Comment on above: Degeneration of inte rvertebral disc of lumbar region with discogenic back pain Start: 05-06-2024 End: 05-06-2024 Clinisync Result Encounter Romulo Alvarez MD Work Phone: [facility] External Department Unsolicited Start: 05-06-2024 End: 05-06-2024 Clinisync Result Encounter Romulo Alvarez MD Work Phone: [facility] External Department Unsolicited Start: 05-04-2024 End: 05-05-2024 Refill Romulo Alvarez MD Work Phone: [facility] Comment on above: Degeneration of inte rvertebral disc of lumbar region with discogenic back pain Start: 04-04-2024 End: 04-07-2024 Refill Romulo Alvarez MD Work Phone: [facility] Comment on above: Degeneration of inte rvertebral disc of lumbar region with discogenic back pain Start: 03-13-2024 End: 03-13-2024 Refill Romulo Alvarez MD Work Phone: [facility] Comment on above: Degeneration of inte rvertebral disc of lumbar region with discogenic back pain Start: 02-28-2024 End: 02-28-2024 Bamboo flowsheet Romulo Alvarez MD Work Phone: [facility] Start: 02-28-2024 End: 02-28-2024 Bamboo flowsheet Romulo Alvarez MD Work Phone: [facility] Start: 02-28-2024 End: 02-28-2024 Patient encounter procedure Romulo Alvarez MD Work Phone: [facility] Work Phone: Start: 02-28-2024 End: 02-28-2024 Postop follow up visit related to original px Romulo Alvarez MD Work Phone: [facility] Comment on above: Medicare annual well ness visit, subsequent (Primary Dx); Type 2 diabetes mellitus with hyperglycemia, without long-term current use of insulin (CMS/HCC); Benign essential hypertension (CMS/HCC); CKD stage 3a, GFR 45-59 ml/min (CMS/HCC); Dyslipidemia (CMS/HCC); Encounter for long-term current use of medication; Breast cancer screening by mammogram Start: 02-28-2024 End: 02-28-2024 ambulatory ROMULO ALVAREZ Not Available Start: 02-12-2024 End: 02-13-2024 Refill Romulo Alvarez MD Work Phone: [facility] Comment on above: Degeneration of inte rvertebral disc of lumbar region with discogenic back pain Start: 01-31-2024 End: 01-31-2024 ambulatory [facility] Work Phone: Start: 01-31-2024 End: 01-31-2024 Patient encounter procedure [facility] [place] Work Phone: Start: 01-14-2024 End: 01-14-2024 Office outpatient visit 25 minutes Jr. Brock Kumar DO Work Phone: [facility] Comment on above: Primary osteoarthrit is of left hip (Primary Dx) Start: 01-14-2024 End: 01-14-2024 ambulatory BROCK BENNETT Not Available Start: 01-12-2024 End: 01-14-2024 Refill Romulo Alvarez MD Work Phone: [facility] Comment on above: Degeneration of inte rvertebral disc of lumbar region with discogenic back pain (Primary Dx) Start: 01-11-2024 End: 01-11-2024 Clinisync Result Encounter Generic External Data Provider [facility] External Department Unsolicited Start: 01-11-2024 End: 01-11-2024 Clinisync Result Encounter Generic External Data Provider [facility] External Department Unsolicited Start: 01-11-2024 Non-patient / Non-visit [facility] Work Phone: Start: 01-10-2024 End: 01-10-2024 Bamboo flowsheet Vianey Melton DPM Work Phone: [facility] Start: 01-10-2024 End: 01-10-2024 Bamboo flowsheet Vianey Melton DPM Work Phone: [facility] Start: 01-10-2024 End: 01-10-2024 Patient encounter procedure Vianey Melton DPM Work Phone: [facility] Comment on above: Nail dystrophy (Prim vipin Dx); Onychomycosis; Type II or unspecified type diabetes mellitus with neurological manifestations, not stated as uncontrolled(250.60) (CMS/HCC); Pain in toes of both feet Start: 01-10-2024 End: 01-10-2024 ambulatory VIANEY MELTON Not Available Start: 12-14-2023 End: 01-03-2024 Telephone encounter Vianey Edgar MA [facility] Start: 12-13-2023 End: 12-13-2023 Refill Romulo Alvarez MD Work Phone: [facility] Comment on above: Essential (primary) hypertension (CMS/HCC); Other intervertebral disc degeneration, lumbar region; Age-related osteoporosis without current pathological fracture (CMS/HCC) Start: 12-11-2023 End: 12-11-2023 Bamboo flowsheet Romulo Alvarez MD Work Phone: [facility] Start: 12-11-2023 End: 12-11-2023 Bamboo flowsheet Romulo Alvarez MD Work Phone: [facility] Start: 12-11-2023 End: 12-11-2023 ambulatory ROMULO ALVAREZ Not Available Start: 12-11-2023 End: 12-11-2023 Office outpatient visit 25 minutes Romulo Alvarez MD Work Phone: [facility] Comment on above: Type 2 diabetes adam itus with hyperglycemia, without long-term current use of insulin (CMS/HCC) (Primary Dx); Benign essential hypertension (CMS/HCC); Type 2 diabetes mellitus with stage 3a chronic kidney disease, without long-term current use of insulin (HCC) (CMS/HCC); Recurrent UTI; Primary osteoarthritis of left hip; Stress, reaction gross; DDD (degenerative disc disease), lumbar; Preoperative clearance Start: 12-11-2023 End: 12-11-2023 Preoperative state Romulo Alvarez MD Work Phone: [facility] Start: 10-18-2023 End: 10-18-2023 ambulatory SHAIKH JACQUI Not Available Start: 10-09-2023 End: 10-09-2023 ambulatory ROMULO ALVAREZ [facility] Start: 10-01-2023 End: 10-01-2023 ambulatory SHARONA E RAMBASEK Not Available Start: 09-26-2023 End: 09-26-2023 ambulatory SHARONA E RAMBASEK Not Available Start: 09-25-2023 Preoperative state Romulo lisa MD Work Phone: [facility] Start: 09-25-2023 End: 09-25-2023 ambulatory ROMULO ALVAREZ Not Available Start: 09-24-2023 End: 09-24-2023 ambulatory SHARONA E RAMBASEK Not Available Start: 09-20-2023 End: 09-20-2023 ambulatory ARIANNA GUY Not Available Start: 09-19-2023 End: 09-19-2023 ambulatory [facility] Start: 09-19-2023 End: 09-19-2023 ambulatory [facility] Start: 09-19-2023 Encounter for other preprocedural examination [facility] Start: 09-19-2023 End: 09-19-2023 Patient encounter procedure [facility] Pre-Admission Testing 2 [facility] - Pre Admit Comment on above: Preop examination (P rimary Dx); Hypertension, unspecified type; Type 2 diabetes mellitus without complication, without long-term current use of insulin ([facility]); Urinary frequency; Former smoker; Osteoarthritis of left hip, unspecified osteoarthritis type Start: 09-19-2023 End: 09-19-2023 Preprocedural examination done Pmh 2 [facility] Start: 04-05-2023 End: 04-05-2023 ambulatory Ghislaine Ada Other [employer] Other Start: 04-05-2023 Office outpatient vi sit 25 minutes Ghislaine Ada [facility] [place] Start: 09-07-2022 End: 09-07-2022 ambulatory Ghislaine Ada Other [employer] Other Start: 09-07-2022 Office outpatient vi sit 15 minutes Ghislaine Ada [facility] [place] Start: 08-31-2022 End: 09-01-[address] ROMULO ALVAREZ Facility:[facility] Start: 08-18-2022 End: 08-19-[address] ROMULO ALVAREZ Facility:[facility] Start: 07-26-2022 End: 07-26-[address] ROMULO ALVAREZ Facility:[facility] Start: 07-18-2022 End: 07-18-2022 ambulatory Ghislaine Ada Other [employer] Other Start: 07-18-2022 Telephone encounter Ghislaine Ada [facility] Start: 03-23-2022 End: 03-23-2022 ambulatory Ghislaine Ada Other [employer] Other Start: 03-23-2022 Office outpatient vi sit [...] 09-13-2021 End: 09-13-2021 ambulatory Ghislaine Ada Other [employer] Other Start: 09-13-2021 Telephone encounter Ghislaine Ada [facility] Start: 09-01-2021 End: 09-01-2021 ambulatory Ghislaine Ada Other [employer] Other Start: 09-01-2021 Office outpatient vi sit 25 minutes Ghislaine Ada [facility] [place] Start: 09-01-2021 Telephone encounter Ghislaine Ada [facility] [place] Start: 08-22-2021 End: 08-22-2021 ambulatory Ghislaine Ada Other [employer] Other Start: 08-22-2021 Telephone encounter Ghislaine Ada [facility] Start: 08-15-2021 End: 08-15-2021 ambulatory Ghislaine Ada Other [employer] Other Start: 08-15-2021 Telephone encounter Ghislaine Ada [facility] Start: 05-24-2021 End: 05-24-2021 ambulatory Ghislaine Ada Other [employer] Other Start: 05-24-2021 Telephone encounter Ghislaine Ada [facility] Start: 02-21-2021 End: 02-21-2021 ambulatory Ghislaine Ada Other [employer] Other Start: 02-21-2021 Telephone encounter Ghislaine Ada [facility] Start: 02-11-2021 End: 02-11-2021 ambulatory Ghislaine Ada Other [employer] Other Start: 02-11-2021 Telephone encounter Ghislaine Ada [facility] Start: 02-10-2021 End: 02-10-2021 ambulatory Ghislaine Ada Other [employer] Other Start: 02-10-2021 Office outpatient vi sit 25 minutes Ghislaine Ada [facility] [place] Start: 07-20-2020 End: 04-14-2021 Patient encounter procedure ROMULO ALVAREZ [facility] Start: 10-11-2017 End: 10-12-2017 Patient encounter Bakari Berg Facility:[facility] Procedures Date Procedure Procedure Detail Performing Clinician Start: 08-06-2024 Plain X-ray of left hip Romulo Alvarez MD Work Phone: Start: 08-06-2024 X-ray of left knee, four views Romulo Alvarez MD Work Phone: Start: 05-06-2024 MM TOMOSYNTHESIS SCR EENING BI Romulo Alvarez MD Work Phone: Start: 05-06-2024 MLR HEMOGLOBIN A1C Romulo Alvarez MD Work Phone: Start: 05-06-2024 Mammography Romulo blevins MD Work Phone: Start: 01-11-2024 HMHP CBC WITH PLATEL ET NO DIFFERENTIAL Generic External Data Provider Start: 03-26-2023 Mammography Romulo blevins MD Work Phone: Start: 07-26-2022 Colonoscopy Romulo blevins MD Work Phone: Plan of Treatment Date Care Activity Detail Author Start: 07-26-2032 Screening for malignant neoplasm of colon [facility] Start: 07-27-2027 Screening for malignant neoplasm of colon Colonoscopy [facility] Start: 05-06-2025 Screening for malignant neoplasm of breast Mammogram [facility] Start: 02-27-2025 Medicare Annual Wellness (AWV) Medicare Annual Wellness (AWV) [facility] Start: 12-23-2024 End: 12-23-2024 Patient encounter procedure 12/23/2024 3:00 PM EDT Procedure Visit [facility] [address] [facility] [place] [address] Vianey Melton DPM [address] [place] [address] [facility] Start: 12-08-2024 Influenza vaccination Influenz a Vaccine (Season Ended) [facility] Start: 11-03-2024 Hemoglobin A1c measurement Diabetes: Hemoglobin A1C [facility] Start: 09-26-2024 Urine screening for protein Diabetes: Urine Protein Screening [facility] Start: 09-18-2024 Adult BMI Screening Adult BMI Screen ing [facility] Start: 09-18-2024 Glaucoma screening Diabetes: R etinopathy Screening [facility] Start: 09-18-2024 Tobacco Screening Tobacco Screening [facility] Start: 08-28-2024 End: 08-28-2024 Patient encounter procedure 08/28/2024 1:15 PM EDT [facility] [address] [place] [place] [address] Romulo Alvarez MD [address] [place] [address] [facility] Start: 08-06-2024 Bacteria identified in Urine by Culture Urine Culture [facility] Start: 08-06-2024 Urine culture [facility] Start: 08-06-2024 [facility] Start: 08-06-2024 Plain X-ray of left hip XR hip LT min 2V(w/wo pelvis)* [facility] Start: 08-06-2024 XR Hip - left 2 Views [facility] Start: 08-06-2024 X-ray of left knee, four views XR knee LT 4V* [facility] Start: 08-06-2024 XR Knee - left 4 Views [facility] Start: 07-22-2024 End: 07-22-2024 Patient encounter procedure [facility] Comment on above: Arrived Start: 06-24-2024 End: 06-24-2024 Patient encounter procedure 06/24/2024 9:30 AM EDT Office Visit [facility] [address] [place] [phone] Jr. Brock Kumar, DO [address] [facility] [place] [address] [facility] Start: 06-09-2024 End: 06-09-2024 Patient encounter procedure 06/09/2024 9:00 AM EST Office Visit [facility] [address] [place] [address] Jr. Brock Kumar, DO [address] [facility] [address] [place] [address] [facility] Start: 05-13-2024 End: 05-13-2024 Patient encounter procedure 05/13/2024 9:30 AM EST Procedure Visit [facility] [address] [place] [id number] Vianey Melton, DPM [address] [place] [address] [facility] Start: 03-26-2024 Screening for malignant neoplasm of breast Mammogram [facility] Start: 03-20-2024 Hemoglobin A1c measurement Diabetes: Hemoglobin A1C [facility] Start: 02-28-2024 End: 02-27-2025 Basic metabolic 1998 panel - Serum or Plasma Basic metabolic panel Lab Routine CKD stage 3a, GFR 45-59 ml/min ([facility]) Encounter for long-term current use of medication Expected: 02/28/2024 (Approximate), Expires: 02/27/2025 [facility] Comment on above: Expected: 02/28/2024 (Approximate), Expires: 02/27/2025 Start: 02-28-2024 End: 02-27-2025 Hemoglobin A1c/Hemoglobin.total in Blood Hemoglobin A1c Lab Routine Type 2 diabetes mellitus with hyperglycemia, without long-term current use of insulin ([facility]) Expected: 02/28/2024 (Approximate), Expires: 02/27/2025 [facility] Work Phone: Comment on above: Expected: 02/28/2024 (Approximate), Expires: 02/27/2025 Start: 02-28-2024 End: 02-27-2025 Lipid 1996 panel - Serum or Plasma Lipid panel Lab Routine Dyslipidemia ([facility]) Expected: 02/28/2024 (Approximate), Expires: 02/27/2025 [facility] Comment on above: Expected: 02/28/2024 (Approximate), Expires: 02/27/2025 Start: 02-28-2024 End: 04-29-2025 MG Breast - bilateral Screening Bilateral screening mammogram Imaging Routine Breast cancer screening by mammogram Expected: 02/28/2024, Expires: 04/29/2025 [facility] Comment on above: Expected: 02/28/2024 , Expires: 04/29/2025 Start: 02-28-2024 End: 02-28-2024 Patient encounter procedure [facility] Comment on above: Arrived Start: 01-14-2024 End: 01-14-2024 Patient encounter procedure 01/14/2024 2:45 PM EDT Office Visit [facility] [address] [place] [address] Jr. Brock Kumar, DO [address] [facility] [address] [place] [address] [facility] Start: 01-10-2024 End: 01-10-2024 Patient encounter procedure [facility] Comment on above: Arrived Start: 12-20-2023 Hemoglobin A1c measurement Diabetes: Hemoglobin A1C [facility] Start: 12-11-2023 End: 12-10-2024 Bacteria identified in Urine by Culture Urine culture (clean catch) Microbiology Routine Recurrent UTI Expected: 12/11/2023 (Approximate), Expires: 12/10/2024 [facility] Work Phone: Comment on above: Expected: 12/11/2023 (Approximate), Expires: 12/10/2024 Start: 12-11-2023 End: 12-10-2024 Urinalysis complete panel - Urine Urinalysis with reflex microscopic (clean catch) Lab Routine Recurrent UTI Expected: 12/11/2023 (Approximate), Expires: 12/10/2024 [facility] Comment on above: Expected: 12/11/2023 (Approximate), Expires: 12/10/2024 Start: 12-09-2023 Influenza vaccination [facility] Start: 10-16-2023 End: 10-16-2023 Admission to same day surgery center 10/16/2023 10:45 AM EDT - 10/16/2023 2:00 PM EDT Surgery [facility] [address] [place] [phone] Brock Kumar Jr., DO [address] [place] [address] REPLACEMENT TOTAL JOINT HIP [46337 (CPT )] [facility] Comment on above: REPLACEMENT TOTAL SAL INT HIP [00744 (CPT )] Start: 10-16-2023 End: 10-16-2023 Arthrp acetblr/prox fem prostc agrft/algrft REPLACEMENT TOTAL JOINT HIP DJD L hip 10/16/2023 10:45 AM EDT [facility] Start: 10-16-2023 Subsequent hospital visit by physician 10/16/2023 10:45 AM EDT Hospital Encounter [facility] - Surgery [address] [place] [address] Brock Kumar Jr., DO [address] [facility] [address] [place] [address] [facility] Start: 10-08-2023 End: 09-17-2024 Crossmatch RBC Crossmatch RBC Blood Bank Routine Preop examination Hypertension, unspecified type Type 2 diabetes mellitus without complication, without long-term current use of insulin ([facility]) Urinary frequency Former smoker Osteoarthritis of left hip, unspecified osteoarthritis type Expected: 10/08/2023, Expires: 09/17/2024 [facility] [employer] [facility] Comment on above: Expected: 10/08/2023 , Expires: 09/17/2024 Start: 09-19-2023 End: 09-17-2024 XR Femur and Tibia Views for leg length [facility] [employer] [facility] Comment on above: Expected: 09/19/2023 (Approximate), Expires: 09/17/2024 Start: 12-08-2022 COVID-19 Vaccine () COVID-19 Vaccine () [facility] Start: 2018 Fall Risk Screening Fall Risk Screen ing [facility] Start: 1972 DTaP,Tdap and Td Vaccines (1 - Tdap) DTaP,Tdap and Td Vaccines (1 - Tdap) [facility] Start: 1972 Pneumococcal Vaccine : 65+ Years (1 of 2 - PCV) Pneumococcal Vaccine: 65+ Years (1 of 2 - PCV) [facility] Start: 1972 Urine screening for protein Diabetes: Urine Protein Screening [facility] Start: 10-25-1971 Adult BMI Follow Up Plan Adult BMI Follow Up Plan [facility] Start: 10-25-1971 Diabetic foot examination Diabetic Foot Exam [facility] Start: 1965 Depression Screening Depression Scre ening [facility] Start: 10-25-1963 Glaucoma screening Diabetes: R etinopathy Screening [facility] Start: 10-25-1959 Pneumococcal Vaccine : 65+ Years (1 of 2 - PCV) Pneumococcal Vaccine: 65+ Years (1 of 2 - PCV) [facility] Start: 1953 Glaucoma screening Diabetic Op hthalmology Exam [facility] Start: 1953 Medicare Annual Wellness (AWV) Medicare Annual Wellness (AWV) [facility] Start: 1953 Medicare Annual Wellness Visit Medicare Annual Wellness Visit [facility] Start: 1953 Screening for malignant neoplasm of colon [facility] Start: 1953 Urine screening for protein Urine Microalbumin [facility] Cotinine [Mass/volum e] in Serum or Plasma [facility] Glucose measurement estimated from glycated hemoglobin [facility] Hemoglobin [Mass/volume] in Blood [facility] Hemoglobin A1c/Hemoglobin.total in Blood [facility] Nicotine [Mass/volum e] in Serum or Plasma [facility] Renal function 2000 panel - Serum or Plasma [facility] End: 09-17-2024 Type and screen(includes indirect raysa) Type and screen(includes indirect raysa) Blood Bank Routine Preop examination Hypertension, unspecified type Type 2 diabetes mellitus without complication, without long-term current use of insulin ([facility]) Urinary frequency Former smoker Osteoarthritis of left hip, unspecified osteoarthritis type 1 Occurrences starting 09/18/2023 until 09/17/2024 [facility] Work Phone: Comment on above: 1 Occurrences starti ng 09/18/2023 until 09/17/2024 XR Hip - left 3 Views XR hip lef t 2 or 3 views Imaging Routine Left hip pain 07/22/2024 10:59 AM EDT [facility] Work Phone: [place] Payers Date Payer Category Payer Medicare (Managed Care) [facility] [id number] 2021 Unknown [id number]. [id number] 2020 Private Health Insurance [id number] 2020 Unknown [id number] 2017 Private Health Insurance [id number] 1959 Self-pay 1953 Unknown [id number] 2.16.840.1.205499.3.579.2. 173 1953 Unknown [id number] 2.16.840.1.818433.3.579.2. 593 1953 Unknown [id number] 2.16.840.1.123083.3.579.2. 593 1953 Unknown [id number] 2.16.840.1.805089.3.579.2. 593 1953 Unknown [id number] 2.16.840.1.757649.3.579.2. 593 1953 Unknown [id number] 2.16.840.1.501931.3.579.2. 593 1953 Unknown [id number] 2.16.840.1.232040.3.579.2. 593 1953 Unknown [id number] 2.16.840.1.354036.3.579.2. 593 1953 Unknown [id number] 2.16.840.1.051248.3.579.2. 593 1953 Unknown [id number] 2.16.840.1.167049.3.579.2. 593 1953 Unknown [id number] 2.16.840.1.647863.3.579.2. 593 1953 Unknown [id number] 2.16.840.1.003114.3.579.2. 593 1953 Unknown [id number] 2.16.840.1.378444.3.579.2. 1286 1953 Unknown [id number] 2.16.840.1.948991.3.579.2. 128 1953 Unknown [id number] 2.16.840.1.780892.3.579.2. 128 1953 Unknown [id number] 2.16.840.1.440267.3.579.2. 128 1953 Unknown [id number] 2.16.840.1.680668.3.579.2. 1286 1953 Unknown [id number] 2.16.840.1.293528.3.579.2. 128 1953 Unknown [id number] 2.16.840.1.793437.3.579.2. 1259 1953 Unknown [id number] 2.16.840.1.796313.3.579.2. 1259 1953 Unknown [id number] 2.16.840.1.598263.3.579.2. 1258 1953 Unknown [id number] 2.16.840.1.622411.3.579.2. 1258 1953 Unknown [id number] 2.16.840.1.405847.3.579.2. 1258 1953 Unknown [id number] 2.16.840.1.153282.3.579.2. 1258 1953 Unknown [id number] 2.16.840.1.095708.3.579.2. 1258 1953 Unknown [id number] 2.16.840.1.098106.3.579.2. 1258 1953 Unknown [id number] 2.16.840.1.004607.3.579.2. 1258 1953 Unknown [id number] 2.16.840.1.309701.3.579.2. 1258 1953 Unknown [id number] 2.16.840.1.689702.3.579.2. 1258 1953 Unknown [id number] 2.16.840.1.361036.3.579.2. 1258 1953 Unknown [id number] 2.16.840.1.156531.3.579.2. 1258 1953 Unknown [id number] 2.16.840.1.625882.3.579.2. 1259 Medicare [id number] 2.16.840.1.548727.19 Unknown [id number] 2.16840.1.174007.3.579.2. 593 Unknown [id number] 2.16.840.1.145479.3.579.2. 531 Social History Date Type Detail Facility Unknown if ever smoked [employer] Other Start: 12-11-2023 End: 02-28-2024 Sex Assigned At [facility] [employer] Other Start: 09-19-2023 End: 10-18-2023 Tobacco smoking status NHIS Ex-smoker [facility] End: 04-09-1977 History of tobacco use Current smoker [facility] End: 04-09-1977 History of tobacco use Cigarette Smoker [facility] History of tobacco use Passive smoker [facility] Start: 09-19-2023 End: 10-18-2023 Tobacco use and exposure Smokeless tobacco non-user [facility] Start: 12-11-2023 End: 08-19-2024 Alcoholic beverage intake Ex-drinker (finding) [facility] Start: 12-11-2023 End: 02-28-2024 History of Social function [facility] Start: 12-19-2022 Tobacco Comment Smoked for 2 years [facility] Start: 1955 Sex assigned at Not on file [facility] Start: 01-31-[address] [facility] Never smoked tobacco (finding) [facility] Start: 1955 Sex Assigned At Female F [facility] Start: 09-19-2023 Alcoholic beverage intake Current non-drinker of alcohol (finding) [facility] Childcare Unknown [facility] Start: 08-06-2024 End: 08-07-2024 Sex Female (finding) [facility] Clinical Notes 12-27-2016 to 08-19-2024 Vianey Melton DPM - 08/19/2024 3:30 PM EDT Note Date & Type Note Facility 08-19-2024 History of Presen t illness Narrative Images from the original note were not included. Subjective Patient ID: Doug Courtney is a 68 y.o. female who presents for Nail care (Doug Courtney is a 68 y.o. female who presents for DM Foot Care. BS: 114 A1C: 5.2/LV Dr. Alvarez 02/27/2025 SS: 9.5). HPI Patient presents complaining of elongated, thick, fungal nails. She missed her last appointment due to a hospitalization. She is hoping to have a hip replacement soon, but is awaiting clearance from her dentist and PCP. She is due for DM foot exam Review of Systems Medications Current Outpatient Medications: atorvastatin (Lipitor) 10 MG tablet, Take 1 [...] mouth in the morning., Disp: , Rfl: dextromethorphan (Delsym) 30 MG/5ML liquid, Take 10 mL (60 mg) by mouth in the morning and 10 mL (60 mg) before bedtime., Disp: 89 mL, Rfl: 2 ferrous sulfate 325 (65 Fe) MG tablet, Take 325 mg by mouth in the morning. Take with meals., Disp: , Rfl: FLUoxetine (PROzac) 10 MG capsule, TAKE 1 CAPSULE BY MOUTH ONCE DAILY, Disp: 30 capsule, Rfl: 2 hydrOXYzine HCl [...] TWICE DAILY, Disp: 180 tablet, Rfl: 3 Multiple Vitamins-Minerals (Centrum Silver 50+Women) tablet, Take 1 tablet by mouth daily, Disp: 90 tablet, Rfl: 3 oxyCODONE-acetaminophen (Percocet) 10-325 MG tablet, Take 1 tablet by mouth 4 (four) times a day as needed for severe pain or moderate pain, Disp: 120 tablet, Rfl: 0 senna-docusate [...] Comments: Date of last diabetic foot exam: 08/19/2024 Skin: General: Skin is warm. Capillary Refill: [...] and Affect: Mood normal. Behavior: Behavior normal. [address] Assessment/Plan ICD-10-CM 1. Nail dystrophy L60.3 2. Onychomycosis B35.1 3. Type II or unspecified type diabetes mellitus with neurological manifestations, not stated as uncontrolled(250.60) (CMS/[facility]) E11.49 4. Pain in toes of both feet M79.674 M79.675 Reviewed findings of diabetic foot exam with the pt along with diagnosis of peripheral neuropathy and importance of maintaining good control of blood sugars. They are to get into a habit of looking at their feet or have someone look at them. They are to look for any signs of redness, blistering, cracking, swelling, drainage, open lesions etc. They are to dry in-between the toes after each bath or shower gently. They are to refrain from going barefoot. Wear shoes at all times to help protect feet. Shoe gear should be inspected for any foreign objects. Shoes should have a deep wide toe box. With any type of shoe, the feet should be inspected for any signs of pressure, i.e., redness, blistering, or open sores. Mycotic toenail debridement. All nails debrided in thickness and length. Instrumentation utilized: large and small nail nipper and curette and power bur. Discuss various treatments options including topical therapy vs oral medication. At this time the patient defers these options. Relief of discomfort noted by patient. All nails debrided appropriately. Web spaces inspected and found to be free of disease and ulceration. Shoes inspected and hygiene discussed. Advised to RTO on as needed basis This note was created with the assistance of a speech recognition program. While intending to generate a timely document that accurately reflects the content of the visit, no guarantee can be provided that every grammatical or spelling mistake has been or will be identified or corrected. Thank you for your understanding. Vianey Melton DPM documented in this encounter [facility] 08-06-2024 Evaluation note Diagnosis Onset Date Resolution Primary osteoarthritis of left hip acute August 06, 2024 11:01am [facility] Work Phone: [phone]) 705-867104-16-2025 Telephone encounter Note* Telephone Encounter - Anisa Magallanes - 07/23/2024 3:22 PM EDT Patient called and wanted Dr. Kumar to know that she got a prescription for cough medicine, taking it twice a day. [facility] [id number] Miscellaneous Notes* Telephone Encounter - Anisa Elpidio - 07/23/2024 3:22 PM EDT Patient called and wanted Dr. Kumar to know that she got a prescription for cough medicine, taking it twice a day. documented in this encounterTwo Rivers Psychiatric HospitalTgyekccfdx02-16-0920 History of Present illness Narrative* Jr. Brock Kumar, DO - 07/22/2024 10:45 AM EDT Images from the original note were not included. HISTORY OF PRESENT ILLNESS: EST PT Doug Courtney is an 68 y.o. @ female. EST RECHECK LT HIP PAIN - POSSIBLY DISCUSS SURGERY TODAY PT WAS PREVIOUSLY SCHEDULED FOR SURGERY AND CX AFTER PT WAS ADMITTED HX PELVIC FRACTURE 2021 PER PT (TX @ [facility]) XRAY LT HIP TODAY EPIC 07/22/24 XRAY PELVIS/LT HIP CHANGE 08/01/23 XRAY 07/05/23 [facility] NO MDP/PREDNISONE NO CORTISONE INJ PT @ [facility] NO PAIN MANAGEMENT *PT WAS IN [facility] ER 06/15/24, FOR HIP PAIN AND WEAKNESS* CONTINUES TO HAVE HIP PAIN, CAN BE IN THE GROIN AND LATERAL THIGH- USES WALKER TO AMBULATE- WORSE WITH MOVEMENT AND AFTER PROLONGED SITTING, SIT TO STAND - LIMITED ROM - DOING HEP. + TYLENOL +OXYCODONE 1/[address] ALVAREZ LAST A1C 5.9% 05/06/24 ALLERGIES: No Known Allergies HOME MEDICATIONS: Current Outpatient Medications Medication Instructions atorvastatin (LIPITOR) 10 mg, Oral, Daily Calcium Carb-Cholecalciferol 600-10 MG-MCG tablet 1 tablet, Oral, 2 times daily calcium carbonate EX (TUMS EXTRA STRENGTH) 750 mg, Daily cholecalciferol (VITAMIN D-3) 25 mcg, Daily dextromethorphan (DELSYM) 60 mg, Oral, 2 times daily empagliflozin (JARDIANCE) 10 mg, Oral, Daily ferrous sulfate 325 mg, Daily with breakfast FLUoxetine (PROZAC) 10 mg, Oral, Daily hydrOXYzine HCl (ATARAX) 10 mg, Oral, Every 8 hours PRN magnesium oxide (MAG-OX) 400 mg, Daily metFORMIN (GLUCOPHAGE) 500 mg, Oral, 2 times daily with meals metoprolol tartrate (LOPRESSOR) 50 mg, Oral, 2 times daily Multiple Vitamins-Minerals (Centrum Silver 50+Women) tablet Take 1 tablet by mouth daily oxyCODONE-acetaminophen (Percocet) 10-325 MG tablet 1 tablet, Oral, 4 times daily PRN senna-docusate sodium (Senokot-S) 8.6-50 MG tablet 1 tablet, Daily PHYSICAL EXAM: Hip Musculoskeletal Exam Gait Antalgic: left Limp: left Trendelenburg: left Abductor lurch: left Circumduction: left Assistive device: walker Inspection Leg length disparity: right greater than left Left Erythema: none Ecchymosis: none Edema: none Deformity: none Previous incision: no previous incision Palpation Left Increased warmth: none Tenderness: present Greater trochanteric region pain: moderate Pubic rami pain: mild Lower lumbar region [...] Left hip strength is normal. Extension: 5/5. Extension is affected by pain. Flexion: 4+/5. Flexion is affected by pain. Internal rotation: 5/5. Internal rotation is affected by pain. External rotation: 5/5. External rotation is affected by pain. Adduction: 5/5. Adduction is affected by pain. Abduction: 4+/5. Abduction is affected by pain. [...] to calculate BMI. Tobacco Use: Medium Risk (02/28/2024) Patient History Smoking Tobacco Use: Former Smokeless Tobacco Use: Never Passive Exposure: Past Alcohol Use: Not At Risk (07/20/2020) Received from [facility] Frequency of Alcohol Consumption: Never Average Number of Drinks: Not asked Frequency of Binge Drinking: Never IMAGING: Procedures No orders of the defined types were placed in this encounter. ASSESSMENT: No diagnosis found. PLAN: Patient's hip is completely eroded to the point where I feel that she needs to see Dr. Rodriguez to have it reconstructed. We will align her with an appointment with Dr. Rodriguez for hip replacement possible grafting we'll see her back on a when necessary basis. We have discussed restrictions and home exercise program in the interim. Questions answered in laymen terms at the bedside. The diagnosis, home exercise plan and any ongoing restrictions/ recommendations reviewed. If unable to be reached in office, I recommend evaluation at nearest Emergency Room if any symptoms worsened or new symptoms develop for requiring urgent evaluation. documented in this encounterTwo Rivers Psychiatric [id number] Telephone encounter Note* Telephone Encounter - Yasmin Christianson - 07/18/2024 3:06 PM EDT Patient notified [facility] [id number] Miscellaneous Notes* Telephone Encounter - Yasmin Christianson - 07/18/2024 3:06 PM EDT Patient notified * Telephone Encounter - Yasmin Christianson - 07/18/2024 2:27 PM EDT Patient called requesting we ask if she buys an [employer] sit down exercise machine that she seen on TV will this be ok to do with her hip? Please advise [phone]. documented in this encounterTwo Rivers Psychiatric [id number] Telephone encounter Note* Telephone Encounter - Yasmin Christianson - 07/18/2024 2:27 PM EDT Patient called requesting we ask if she buys an [employer] sit down exercise machine that she seen on TV will this be ok to do with her hip? Please advise [phone]. [facility] [id number] Telephone encounter Note* Telephone Encounter - Romulo Alvarez MD - 06/04/2024 12:19 PM EST [facility] HospitalTgrpqwoixn16-85-5128 Miscellaneous Notes* Telephone Encounter - Romulo Alvarez MD - 06/04/2024 12:19 PM EST documented in this encounterTwo Rivers Psychiatric HospitalEqvmollwis60-94-1434 History of Present illness Narrative* Romulo Alvarez MD - 02/28/2024 1:48 PM ESTAssociated Problem(s): Medicare annual wellness visit, subsequent Due for labs. Discussed proper diet and regular aerobic exercise. Need aerobic exercise 5-6 days a week for 30 minutes at a time. Smaller portions and limit total calories. Colonoscopy every 10 years. Tetanus every 10 years. Advised not to smoke. Discussed daily Aspirin therapy. * Romulo Alvarez MD - 02/28/2024 1:00 PM EST Images from the original note were not included. Subjective Patient ID: Doug Courtney is a 68 y.o. female who presents [...] Visit CKD stage 3a, GFR 45-59 ml/min ([facility]) Relevant Orders Basic metabolic panel Dyslipidemia ([facility]) Relevant Orders Lipid panel Type 2 diabetes mellitus with hyperglycemia, without long-term current use of insulin ([facility]) Relevant Orders Hemoglobin A1c Benign essential hypertension ([facility]) Medicare annual wellness visit, subsequent - Primary [...] Orders Bilateral screening mammogram documented in this encounterTwo Rivers Psychiatric [id number] Telephone encounter Note* Telephone Encounter - Romulo Alvarez MD - 02/13/2024 12:20 PM EST [facility] [id number] Miscellaneous Notes* Telephone Encounter - Romulo Alvarez MD - 02/13/2024 12:20 PM EST documented in this encounterTwo Rivers Psychiatric [id number] History of Present illness Narrative* Jr. Brock Kumar, - 01/14/2024 2:45 PM EDT HISTORY OF PRESENT ILLNESS: EST PT Doug Courtney is an 68 y.o. @ female. EST RECHECK LT HIP PAIN FOR YRS- POSSIBLY DISCUSS SURGERY TODAY - PT WAS PREVIOUSLY SCHEDULED FOR SURGERY AND CX AFTER PT WAS ADMITTED - PT WANTS TO WAIT UNTIL 06/2024 HX PELVIC FRACTURE 2021 PER PT ([place] @ [facility]) XRAY PELVIS/LT HIP CHANGE 08/01/23 XRAY 07/05/23 [facility] NO MDP/PREDNISONE NO CORTISONE INJ PT @ [facility] NO PAIN MANAGEMENT CONTINUES TO HAVE HIP PAIN- USES WALKER TO AMBULATE- SOME GROIN PAIN- SOME THIGH PAIN - LIMITED ROM +OXYCODONE PER DR ALVAREZ ALLERGIES: No Known Allergies HOME MEDICATIONS: Current Outpatient Medications Medication Instructions alendronate (FOSAMAX) 70 mg, Oral, Every 7 days, Take in the morning with a full glass of water, meri empty stomach, and do not take anything [...] Use: Not At Risk (07/20/2020) Received from [facility] Frequency of Alcohol Consumption: Never [...] ARVIN. Brock Kumar D.O. documented in this encounterTwo Rivers Psychiatric [id number] Telephone encounter Note* Telephone Encounter - Romulo Alvarez MD - 01/14/2024 10:03 AM EDT [facility] [id number] Miscellaneous Notes* Telephone Encounter - Romulo Alvarez MD - 01/14/2024 10:03 AM EDT documented in this encounterTwo Rivers Psychiatric HospitalSdspqqwxnt55-06-0572 History of Present illness Narrative* Vianey Melton DPM - 01/10/2024 8:45 AM EDT Images from the original note were not included. Subjective Patient ID: Doug Courtney is a 68 y.o. female who presents [...] mouth every 7 (seven) days Take in themorning with a full glass of water, on [...] mouth in the morning. Take with meals., Disp:, Rfl: FLUoxetine (PROzac) 10 MG capsule, Take [...] TABLET BY MOUTH TWICE DAILY, Disp: 180 tablet,Rfl: 3 oxyCODONE-acetaminophen (Percocet) 10-325 MG tablet, Take 1 tablet by mouth 4 (four) times a day asneeded for severe pain, Disp: 120 tablet, Rfl: 0 senna-docusate sodium (Senokot-S) 8.6-50 MG tablet, Take 1 tablet by mouth in the morning., Disp: ,Rfl: Allergies Patient has no known allergies. Past [...] the second and third contracted the MPJ PIPJ.Increased pressure noted between toes 1 and 2 [...] and Affect: Mood normal. Behavior: Behavior normal. [address] Assessment/Plan ICD-10-CM 1. Nail dystrophy L60.3 2. Onychomycosis B35.1 3. Type II or unspecified type diabetes mellitus with neurological manifestations, not stated as uncontrolled(250.60) (CMS/[facility]) E11.49 4. Pain in toes of both [...] understanding. Vianey Melton DPM documented in this encounterTwo Rivers Psychiatric [id number] Telephone encounter Note* Telephone Encounter - Yasmin Christianson - 12/28/2023 1:32 PM EDT Patient called in to check if we received her blood work that ordered. I seen the previous message about getting her schedule and she did not want to schedule. Patient would like 's nurse to give her a call. Please advise [phone]. [facility] HospitalLmwjuxwiis04-86-6602 Miscellaneous Notes* Telephone Encounter - Yasmin Christianson - 12/28/2023 1:32 PM EDT Patient called in to check if we received her blood work that ordered. I seen the previous message about getting her schedule and she did not want to schedule. Patient would like 's nurse to give her a call. Please advise [phone]. * Telephone Encounter - Yenifer Ochoa - 12/14/2023 10:[address] Alvarez's office called asking if we needed anything more from them regarding her surgery? Vianey said that Dr. Kumar would like to see her again to discuss going forward with surgery again. Icalled patient and was unable to leave a message. documented in this encounterTwo Rivers Psychiatric [id number] Telephone encounter Note* Telephone Encounter - Yenifer Ochoa - 12/14/2023 10:[address] Alvarez's office called asking if we needed anything more from them regarding her surgery? Vianey said that Dr. Kumar would like to see her again to discuss going forward with surgery again. Icalled patient and was unable to leave a message. [facility] [id number] History of Present illness Narrative* Romulo Alvarez MD - 12/11/2023 1:37 PM EDTAssociated Problem(s): Preoperative clearance Able to proceed with upcoming surgery at low risk for complications. History of DM and HTN but controlled with medication. No history of CAD. Not having chest pain or palpitations. Return to ortho. * Romulo Alvarez MD - 12/11/2023 1:37 PM EDTAssociated Problem(s): DDD (degenerative disc disease), lumbar Pain stable and use percocet PRN. * Romulo Alvarez MD - 12/11/2023 1:37 PM EDTAssociated Problem(s): Osteoarthritis of left hip Increased pain and follow with ortho. * Romulo Alvarez MD - 12/11/2023 1:37 PM EDTAssociated Problem(s): Recurrent UTI Recent UTI and repeat culture. * Romulo Alvarez MD - 12/11/2023 1:37 PM EDTAssociated Problem(s): Type 2 diabetes mellitus with chronic kidney disease, without long-term current use of insulin (HCC) (CMS/HCC) Add jardiance * Romulo Alvarez MD - 12/11/2023 1:37 PM EDTAssociated Problem(s): Benign essential hypertension (CMS/HCC) BP remains controlled without losartan and monitor PRN. * Romulo Alvarez MD - 12/11/2023 1:36 PM EDTAssociated Problem(s): Type 2 diabetes mellitus with hyperglycemia, without long-term current use of insulin ([facility]) BS controlled and last A1C 6.2. Stick to ADA diet and limit carbs. * Romulo Alvarez MD - 12/11/2023 1:00 PM EDT Images from the original note were not included. Subjective Patient ID: Doug Courtney is a 68 y.o. female who presents for Follow-up (6m f/u). Follow up DM, HTN, OA hip, and back pain. Patient doing well today. Admitted in October with UTI and sepsis. Previously scheduled for hip replacement but postponed due to hospitalization. Feels well today. BS well controlled with range of 90- 200 and average around 120. Tries to eat well and stick to ADA diet. Denies signs of elevated BS such as polyuria, polyphagia or polydipsia. Checking BP PRN andtypically controlled. BP normal today. Taking medication daily and tolerating without side effects.OA hips unchanged. Popping, clicking and grinding. Stiff [...] hyperglycemia, without long-term current use of insulin ([facility] [facility]) - Primary BS controlled and last A1C 6.2. Stick to ADA diet and limit carbs. Type 2 diabetes mellitus with chronic kidney disease, without long-term current use of insulin (HCC) (CMS/[facility]) Add jardiance Relevant Medications empagliflozin (Jardiance) 10 MG Benign essential hypertension (CMS/HCC) BP remains controlled [...] reflex microscopic (clean catch) documented in this encounterTwo [facility] [id number] NoteXR BONE LENGTH STUDY Bone length evaluation History: Osteoarthritis, limb length and alignment, knee pain Comparison: Findings: Standing frontal view of the bilateral lower extremities obtained from the iliac crest through the feet for limb length and alignment without marker device. Severe degenerative changes of the left hip with complete joint space loss and narrowing osteophyteformation. Severe right hip degenerative changes. There are degenerative changes of both knees and both ankles. Impression: Severe degenerative changes of the left greater than right hip. Degenerative changes of the bilateral knees. Symmetric alignment. Finalized by Kelly Mckeon MD on 09/22/2023 8:01 [facility] 09-19-2023 Instructions* Patient Instructions* Gina Nicole RN - 09/19/2023 9:45 AM [...] in at the main lobby of the [facility]- registration desk is straight ahead as soon as you walk in. Tell them you are here for surgery. 2. If you have a Living Will/Durable Power of Corporate Administrative Assistant for Health Care that is not on [...] after you have bathed. 5. NO nail indonesian/acrylic on at least one finger. If you are having a hand, wrist or foot surgery then all nail indonesian and artificial/acrylic nails must be removed from [...] least 8 hours and marijuana for 24 hoursprior to arrival for your surgery. 16. If [...] please call the Preadmission Testing office at [phone], Mon.-Fri. 7 a.m.-3 p.m. Leave a voicemail [...] after surgery- do not stop unless directed renee your physician. You may also be given [...] is normal. Call your doctor if you noticeany of the following: -Increased redness or hardening [...] water and pat the area dry with aclean towel. -No re-using wash cloths or towels; [...] appointment with your doctor. [facility]* Encounter Date Diagnosis Assessment Notes [...] monitor LFTs and lipid profile with PCP [facility] Other 06-01-2023 Evaluation note* Encounter Date Diagnosis [...] monitor LFTs and lipid profile with PCP [facility] Other 05-12-2023 NotePROCEDURE: XR KNEE LT 3V HISTORY: Pain of joint of knee ; acute left knee pain COMPARISON: None. FINDINGS: BONES:No fracture, acute abnormality, or significant arthropathy. SOFT TISSUES:No visible soft tissue swelling. EFFUSION:None visible. OTHER: Negative. IMPRESSION: 1. No appreciable acute abnormality or significant degenerative joint disease. Electronically authenticated by: PEGGY CORTEZ Date: 2022-08-18 12:27[facility]12-15-2022 Evaluation note* Encounter Date Diagnosis Assessment [...] within the goal. Continue oral vitamin D [facility] Other 07-12-2022 NotePROCEDURE: XR PELVIS W_OBL MIN [...] left hip osteoarthritis Electronically authenticated by: CONNIE FOX Date: 2021-10-18 19:13[facility]05-26-2022 Evaluation note* Encounter Date Diagnosis Assessment [...] within the goal. Continue oral vitamin D [facility] Other 05-26-2022 Evaluation note* Encounter Date Diagnosis Assessment Notes Treatment Notes Treatment Clinical Notes August, Type 2 diabetes mellitus with diabetic chronic kidney disease (ICD-10 - E11.22) [facility] Other 11-04-2021 Evaluation note* Encounter Date Diagnosis [...] the goal and Vit D is normal. [facility] Other 09-20-2017 History general Narrative - Reported* Type Description Date Medical History diabetes mellitus Medical History hypertension Medical History hyperlipidemia Surgical History COLONOSCOPY NORMAL P ER PATIENT AT [facility] 12-27-2016 Hospitalization History Dehydration [place] [facility] j[facility] 2016 [facility] Other 09-20-2017 History general Narrative - Reported* Type Description Date Medical History diabetes mellitus Medical History hypertension Medical History hyperlipidemia Surgical History COLONOSCOPY NORMAL P ER PATIENT AT [facility] 12-27-2016 Hospitalization History Dehydration [place] [facility] 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 08/09/2021 [facility] Other 09-20-2017 History general Narrative - Reported* Type Description Date Medical History diabetes mellitus Medical History hypertension Medical History hyperlipidemia Surgical History COLONOSCOPY NORMAL P ER PATIENT AT [facility] 12-27-2016 Hospitalization History De[facility] [place] 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, UTI, SEPSIS 08/09/2021 [facility] Other 09-20-2017 History general Narrative - Reported* Type Description Date Medical History diabetes mellitus Medical History hypertension Medical History hyperlipidemia Medical History OSTEOPOROSIS Surgical History COLONOSCOPY NORMAL P ER PATIENT AT [facility] 12-27-2016 Hospitalization History Dehydration [place] [facility] 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, UTI, SEPSIS 08/09/2021 [facility] Other Evaluation noteNo InformationNort [employer] Other Evaluation noteNolaf[facility] [employer] Other Evaluation note* Diagnosis Nail dystrophy- Primary Other specified disease of nail Onychomycosis Dermatophytosis of nail Type II or unspecified type diabetes mellitus with neurological manifestations, not stated as uncontrolled(250.60) ([facility]) Type II or unspecified type diabetes mellitus with neurological manifestations, not stated as uncontrolled Pain in toes of both feet documented in this encounter [facility]* Diagnosis Degeneration of intervertebral disc of lumbar region with discogenic back pain- Primary documented in this encounter [facility]* Diagnosis Primary osteoarthritis of left hip- Primary documented in this encounter [facility]* Diagnosis Onset Date Resolution Status CKD (chronic kidney disease) stage 3, GFR 30-59 ml/min acute Hyperlipidemia acute [id number] acute Secondary hyperparathyroidism acute Type 2 diabetes mellitus wit h diabetic chronic kidney disease [facility] Work Phone: Evaluation note* Diagnosis Type 2 [...] discogenic back pain documented in this encounter [facility] HealthcareEvaluation [facility]* Diagnosis Type 2 diabetes mellitus [...] screening by mammogram documented in this encounter [facility]* Diagnosis Type 2 diabetes mellitus with hyperglycemia, without long-term current use of insulin (CMS/HCC)- Primary Benign essential hypertension (CMS/[facility]) Essential hypertension, benign Primary osteoarthritis of left hip DDD (degenerative disc disease), lumbar Degeneration of lumbar or lumbosacral intervertebral disc Age-related osteoporosis without current pathological fracture ([facility]) Type 2 diabetes mellitus with stage 3b chronic kidney disease, without long-term current use of insulin (HCC) ([facility]) Stage 3b chronic kidney disease (CKD) ([facility]) Preoperative clearance- Primary Unspecified pre-operative examination Primary osteoarthritis of left hip Type 2 diabetes mellitus with hyperglycemia, without long-term current use of insulin (CMS/[facility]) Benign essential hypertension ([facility]) Essential hypertension, benign Type 2 diabetes mellitus with stage 3a chronic kidney disease, without long-term current use of insulin (HCC) ([facility]) Chronic kidney disease, stage 3a (N18.31) Benign essential hypertension (CMS/HCC)- Primary Essential hypertension, benign KENZIE (generalized anxiety disorder) ([facility]) Generalized anxiety disorder Hospital discharge follow-up Other follow-up examination Type 2 diabetes mellitus with hyperglycemia, without long-term current use of insulin ([facility])- Primary Benign essential hypertension ([facility]) Essential hypertension, benign Type 2 diabetes mellitus with stage 3a chronic kidney disease, without long-term current use of insulin (HCC) ([facility]) Recurrent UTI Urinary tract infection, site not specified Primary osteoarthritis of left hip Stress, reaction gross Unspecified acute reaction to stress DDD (degenerative disc disease), lumbar Degeneration of lumbar or lumbosacral intervertebral disc Preoperative clearance Unspecified pre-operative examination Medicare annual wellness visit, subsequent- Primary Type 2 diabetes mellitus with hyperglycemia, without long-term current use of insulin ([facility]) Benign essential hypertension (CMS/HCC) Essential hypertension, benign CKD stage 3a, GFR 45-59 ml/min (CMS/HCC) Dyslipidemia ([facility]/HCC) Other and unspecified hyperlipidemia Encounter for long-term current use of medication Breast cancer screening by mammogram Degeneration of intervertebral disc of lumbar region with discogenic back pain documented in this encounter [facility] HealthcareEvaluation note* Diagnosis Type 2 diabetes mellitus [...] Unspecified pre-operative examination documented in this encounter [facility] Healthcare[facility] note* Diagnosis Essential (primary) hypertension (CMS/HCC) Unspecified essential hypertension Other intervertebral disc degeneration, lumbar region Age-related osteoporosis without current pathological fracture (CMS/[facility]) documented in this encounter [facility] Healthcare[facility]* Diagnosis Type 2 diabetes mellitus [...] hyperglycemia, without long-term current use of insulin ([facility]) Benign essential hypertension (CMS/HCC) Essential hypertension, benign CKD stage 3a, GFR 45-59 ml/min (CMS/HCC) Dyslipidemia (CMS/HCC) Other and unspecified hyperlipidemia Encounter for long-term current use of medication Breast cancer screening by mammogram Degeneration of intervertebral disc of lumbar region with discogenic back pain documented in this encounter [facility]* Diagnosis Preop examination- Primary Unspecified pre-operative examination Hypertension, unspecified type Type 2 diabetes mellitus without complication, without long-term current use of insulin ([facility]) Urinary frequency Former smoker Personal history of tobacco use, presenting hazards to health Osteoarthritis of left hip, unspecified osteoarthritis type Preop examination Unspecified pre-operative examination Hypertension, unspecified type Type 2 diabetes mellitus without complication, without long-term current use of insulin ([facility]) Urinary frequency Former smoker Personal history of tobacco use, presenting hazards to health Osteoarthritis of left hip, unspecified osteoarthritis type Preop examination Unspecified pre-operative examination Hypertension, unspecified type Type 2 diabetes mellitus without complication, without long-term current use of insulin ([facility]) Urinary frequency Former smoker Personal history of tobacco use, presenting hazards to health Osteoarthritis of left hip, unspecified osteoarthritis type [facility] Diagnosis Type 2 diabetes mellitus with hyperglycemia, without long-term current use of insulin (CMS/HCC)- Primary Benign essential hypertension (CMS/HCC) Essential hypertension, benign Primary osteoarthritis of left hip DDD (degenerative disc disease), lumbar Degeneration of lumbar or lumbosacral intervertebral disc Age-related osteoporosis without current pathological fracture (CMS/[facility]) Type 2 diabetes mellitus with stage 3b chronic kidney disease, without long-term current use of insulin (HCC) (CMS/HCC) Stage 3b chronic kidney disease (CKD) (CMS/[facility]) Preoperative clearance- Primary Unspecified pre-operative examination Primary [...] discogenic back pain documented in this encounter [facility]* Diagnosis Type 2 diabetes mellitus [...] of medication Breast cancer screening by mammogram KENZIE (generalized anxiety disorder) (CMS/HCC) Generalized anxiety disorder Degeneration of intervertebral disc of lumbar region with discogenic back pain documented in this encounter [facility]* Diagnosis Type 2 diabetes mellitus [...] without long-term current use of insulin (HCC) ([facility]) Recurrent UTI Urinary tract infection, site not specified Primary osteoarthritis of left hip Stress, reaction gross Unspecified acute reaction to stress DDD (degenerative disc disease), lumbar Degeneration of lumbar or lumbosacral intervertebral disc Preoperative clearance Unspecified pre-operative examination Medicare annual wellness visit, subsequent- Primary Type 2 diabetes mellitus with hyperglycemia, without long-term current use of insulin ([facility]) Benign essential hypertension (CMS/HCC) Essential hypertension, benign CKD stage 3a, GFR 45-59 ml/min ([facility]) Dyslipidemia ([facility]) Other and unspecified hyperlipidemia Encounter for long-term current use of medication Breast cancer screening by mammogram Degeneration of intervertebral disc of lumbar region with discogenic back pain documented in this encounter [facility]* Diagnosis Type 2 diabetes mellitus with hyperglycemia, without long-term current use of insulin ([facility])- Primary Benign essential hypertension ([facility]) Essential hypertension, benign Primary osteoarthritis of left hip DDD (degenerative disc disease), lumbar Degeneration of lumbar or lumbosacral intervertebral disc Age-related osteoporosis without current pathological fracture ([facility]) Type 2 diabetes mellitus with stage 3b chronic kidney disease, without long-term current use of insulin (HCC) ([facility]) Stage 3b chronic kidney disease (CKD) ([facility]) Preoperative clearance- Primary Unspecified pre-operative examination Primary osteoarthritis of left hip Type 2 diabetes mellitus with hyperglycemia, without long-term current use of insulin ([facility]) Benign essential hypertension ([facility]/HCC) Essential hypertension, benign Type 2 diabetes mellitus with stage 3a chronic kidney disease, without long-term current use of insulin (HCC) ([facility]) Chronic kidney disease, stage 3a (N18.31) Benign essential hypertension (CMS/HCC)- Primary Essential hypertension, benign KENZIE (generalized anxiety disorder) ([facility]) Generalized anxiety disorder Hospital discharge follow-up Other follow-up examination Type 2 diabetes mellitus with hyperglycemia, without long-term current use of insulin (CMS/[facility])- Primary Benign essential hypertension (CMS/HCC) Essential hypertension, benign Type 2 diabetes mellitus with stage 3a chronic kidney disease, without long-term current use of insulin (HCC) ([facility]) Recurrent UTI Urinary tract infection, site not specified Primary osteoarthritis of left hip Stress, reaction gross Unspecified acute reaction to stress DDD (degenerative disc disease), lumbar Degeneration of lumbar or lumbosacral intervertebral disc Preoperative clearance Unspecified pre-operative examination Medicare annual wellness visit, subsequent- Primary Type 2 diabetes mellitus with hyperglycemia, without long-term current use of insulin ([facility]) Benign essential hypertension ([facility]/HCC) Essential hypertension, benign CKD stage 3a, GFR 45-59 ml/min (CMS/[facility]) Dyslipidemia ([facility]) Other and unspecified hyperlipidemia Encounter for long-term current use of medication Breast cancer screening by mammogram Primary osteoarthritis of left hip- Primary Left hip pain Pain in joint, pelvic region and thigh documented in this encounter [facility]* Diagnosis Type 2 diabetes mellitus with hyperglycemia, without long-term current use of insulin ([facility])- Primary Benign essential hypertension ([facility]) Essential hypertension, benign Primary osteoarthritis of left hip DDD (degenerative disc disease), lumbar Degeneration of lumbar or lumbosacral intervertebral disc Age-related osteoporosis without current pathological fracture ([facility]) Type 2 diabetes mellitus with stage 3b chronic kidney disease, without long-term current use of insulin (HCC) ([facility]) Stage 3b chronic kidney disease (CKD) ([facility]) Preoperative clearance- Primary Unspecified pre-operative examination Primary osteoarthritis of left hip Type 2 diabetes mellitus with hyperglycemia, without long-term current use of insulin ([facility]/HCC) Benign essential hypertension ([facility]/HCC) Essential hypertension, benign Type 2 diabetes mellitus with stage 3a chronic kidney disease, without long-term current use of insulin (HCC) ([facility]) Chronic kidney disease, stage 3a (N18.31) Benign essential hypertension ([facility]/HCC)- Primary Essential hypertension, benign KENZIE (generalized anxiety disorder) ([facility]) Generalized anxiety disorder Hospital discharge follow-up Other follow-up examination Type 2 diabetes mellitus with hyperglycemia, without long-term current use of insulin ([facility]/HCC)- Primary Benign essential hypertension ([facility]/HCC) Essential hypertension, benign Type 2 diabetes mellitus with stage 3a chronic kidney disease, without long-term current use of insulin (HCC) ([facility]) Recurrent UTI Urinary tract infection, site not [...] discogenic back pain documented in this encounter [facility]* Diagnosis Onset Date Resolution Status Admit Date Primary osteoarthritis of le ft hip acute August 06, 2024 11:01am [facility] Work Phone: Evaluation note* Diagnosis Type 2 [...] hyperglycemia, without long-term current use of insulin ([facility]) Benign essential hypertension ([facility]) Essential hypertension, benign CKD stage 3a, GFR 45-59 ml/min ([facility]) Dyslipidemia ([facility]) Other and unspecified hyperlipidemia Encounter for long-term current use of medication Breast cancer screening by mammogram Type II or unspecified type diabetes mellitus with neurological manifestations, not stated as uncontrolled(250.60) ([facility])- Primary Type II or unspecified type diabetes mellitus with neurological manifestations, not stated as uncontrolled Nail dystrophy Other specified disease of nail Onychomycosis Dermatophytosis of nail Pain in toes of both feet documented in this encounter [facility] general Narrative - [facility]ortedN[facility] [employer] Other Summary Purpose Family History No Family History Records Found Relationship Condition Age at Onset Recorded Date/T felipe daughter Family history of mental disorder Unknown Depression Unknown father Unknown mother Unknown sister Diabetes mellitus Unknown Heart disease Unknown Advance Directives No Advanced Directives Records Found Advance Directive Response Recorded Date/ Time Advance Directives No December 06, 2023 11:20am Advance Directive Response Recorded Date/ Time Advance Directives No August 06 12:48pm Chief Complaint and Reason for Visit Chief Complaint RENAL F/U Reason for Visit CKD (chronic kidney disease) stage 3, GFR 30-59 ml/min Hyperlipidemia [id number] Secondary hyperparathyroidism Type 2 diabetes mellitus with diabetic chronic kidney disease Chief Complaint Admit Date CONSULT DR. KUMAR ASSESS FOR LT ARVIN A pril 2024 11:01am M25.552 - Pain in left hip August 06 11:03am Reason for Visit Admit Date Primary osteoarthritis of left hip August 06, 2024 11:01am Chief Complaint Admit Date CONSULT DR. KUMAR ASSESS FOR LT ARVIN A pril 2024 11:01am M25.552 - Pain in left hip/e78.5 July 102024 11:03am Reason for Referral Specialty Diagnoses / Procedures Referred By Jordon t Referred To Contact Diagnoses Preop examination Hypertension, unspecified type Type 2 diabetes mellitus without complication, without long-term current use of insulin ([facility]) Urinary frequency Former smoker Osteoarthritis of left hip, unspecified osteoarthritis type Procedures ECG 12 lead Stepanic, Brock C Jr., DO [address] [place] [address] Referral ID Status Reason Start Date Expiration Date V isits Requested Visits Authorized [id number] Pending Review 09/18/2023 09/17/2024 1 1 Additional Source Comments INFORMATION SOURCE (unrecogn ized section and content) DATE CREATED AUTHOR 12/05/2017 [facility] DATE CREATED AUTHOR AUTHOR'S ORGANIZ ATION 07/23/2020 [facility] DATE CREATED AUTHOR AUTHOR'S ORGANIZ ATION 09/16/2022 [facility] DATE CREATED AUTHOR AUTHOR'S ORGANIZ ATION 10/10/2023 [place] DATE CREATED AUTHOR AUTHOR'S ORGANIZ ATION 08/16/2024 [facility] DATE CREATED AUTHOR AUTHOR'S ORGANIZ ATION 08/20/2024 [facility] EPIC REASON FOR VISIT [...] t Wellness Reason Comments Follow-up 6m f/u Reason Onset Date Comments Hip 07/18/2024 Reason Onset Date Comments Medicine 07/23/2024 Reason Comments Pain Reason Comments Nail care Doug Courtney is a 68 y.o. female who presents for DM Foot Care. BS: 114 A1C: 5.2/[facility] Dr. Alvarez 02/27/2025 SS: 9.5 Care Teams (unrecognized sec tion and content) Team Status: Active Member Role Status Dates Romulo Alvarez MD Primary Care Provider Active Team Status: Inactive Member Role Status Dates Romulo Alvarez MD Primary Care Provider Active S tart: August 06, 2024 End: August 06, 2024 Bakari Rodriguez II, MD Attending Provider Active Start: August 06, 2024 End: August 06, 2024 Team Status: Active Member Role Status Dates Romulo Alvarez MD Primary Care Provider Active S tart: August 06, 2024 Bakari Rodriguez II, MD Attending Provider Active Start: August 06, 2024 Aquatic Facility Manager Relationship Specialty Start Date End Date Romulo Alvarez MD [address] [place] [address] PCP - Devoted 04/09/21 Romulo Alvarez MD [address] [place] [address] PCP - General Family Medicine 05/08/23 Aquatic Facility Manager Relationship Specialty Start Date End Date Romulo Alvarez MD [address] [place] [address] [place] [address] PCP - Devoted 04/09/21 Romulo Alvarez MD [address] [place] [address] PCP - General Family Medicine 05/08/23 Aquatic Facility Manager Relationship Specialty Start Date End Date Romulo Alvarez MD [address] [place] [address] [place] [address] PCP - Devoted 04/09/21 Romulo Alvarez MD [address] [place] [address] PCP - General Family Medicine 05/08/23 Aquatic Facility Manager Relationship Specialty Start Date End Date Romulo Alvarez MD [address] [place] [address] PCP - Devoted 04/09/21 Romulo Alvarez MD [address] [place] [address] [place] [address] PCP - General Family Medicine 05/08/23 Team Status: Active Member Role [...] January 31, 2024 End: January 31, 2024 Aquatic Facility Manager Relationship Specialty Start Date End Date Romulo Alvarez MD [address] [place] [address] PCP - Devoted 04/09/21 Romulo Alvarez MD [address] [place] [address] PCP - General Family Medicine 05/08/23 Aquatic Facility Manager Relationship Specialty Start Date End Date Romulo Alvarez MD [address] [place] [address] PCP - Devoted 04/09/21 Romulo Alvarez MD [address] [place] [address] PCP - General Family Medicine 05/08/23 Aquatic Facility Manager Relationship Specialty Start Date End Date Romulo Alvarez MD [address] [place] [address] [place] [address] PCP - Devoted 04/09/21 Romulo Alvarez MD [address] [place] [address] [place] [address] PCP - General Family Medicine 05/08/23 Aquatic Facility Manager Relationship Specialty Start Date End Date Romulo Alvarez MD [address] [place] [address] [place] [address] PCP - Devoted 04/09/21 Romulo Alvarez MD [address] [place] [address] [place] [address] PCP - General Family Medicine 05/08/23 Aquatic Facility Manager Relationship Specialty Start Date End Date Romulo Alvarez MD [address] [place] [place] [address] PCP - Devoted 04/09/21 Romulo Alvarez MD [address] [place] [address] [place] [address] PCP - General Family Medicine 05/08/23 Aquatic Facility Manager Relationship Specialty Start Date End Date Romulo Alvarez MD [address] [place] [place] [address] PCP - Devoted 04/09/21 Romulo Alvarez MD [address] [place] [address] [place] [address] PCP - General Family Medicine 05/08/23 Aquatic Facility Manager Relationship Specialty Start Date End Date Romulo Alavrez MD [address] [place] [address] [place] [address] PCP - Devoted 04/09/21 Romulo Alvarez MD [address] [place] [address] [place] [address] PCP - General Family Medicine 05/08/23 Aquatic Facility Manager Relationship Specialty Start Date End Date Romulo Alvarez MD [address] [place] [place] [address] PCP - Devoted 04/09/21 Romulo Alvarez MD [address] [place] [address] [place] [address] PCP - General Family Medicine 05/08/23 Aquatic Facility Manager Relationship Specialty Start Date End Date Romulo Alvarez MD [address] [place] [place] [address] PCP - General Family Medicine 07/13/22 Aquatic Facility Manager Relationship Specialty Start Date End Date Romulo Alvarez MD [address] [place] [address] [place] [address] PCP - Devoted 04/09/21 Romulo Alvarez MD [address] [place] [address] [place] [address] PCP - General Family Medicine 05/08/23 Aquatic Facility Manager Relationship Specialty Start Date End Date Romulo Alvarez MD [address] [place] [address] [place] [address] PCP - Devoted 04/09/21 Romulo Alvarez MD [address] [place] [place] [address] PCP - General Family Medicine 05/08/23 Trevor Caballero MA [facility] 06/17/24 Aquatic Facility Manager Relationship Specialty Start Date End Date Romulo Alvarez MD [address] [place] [address] [place] [address] PCP - Devoted 04/09/21 Romulo Alvarez MD [address] [place] [place] [address] PCP - General Family Medicine 05/08/23 Trevor Caballero MA Family Medicine 06/17/24 Aquatic Facility Manager Relationship Specialty Start Date End Date Romulo Alvarez MD [address] [place] [place] [address] PCP - Devoted 04/09/21 Romulo Alvarez MD [address] [place] [place] [address] PCP - General Family Medicine 05/08/23 Trevor Caballero MA Family Medicine 06/17/24 Aquatic Facility Manager Relationship Specialty Start Date End Date Romulo Alvarez MD [address] [place] [address] PCP - Devoted 04/09/21 Romulo Alvarez MD [address] [place] [address] PCP - General Family Medicine 05/08/23 Trevor Caballero MA Family Medicine 06/17/24 Team Status: Inactive Member Role Status Dates Romulo Alvarez MD Primary Care Provider Active S tart: August 06, 2024 End: August 06, 2024 Bakari Rodriguez II, MD Attending Provider Active Start: August 06, 2024 End: August 06, 2024 Ghislaine Kirkpatrick MD Other Provider Active Start: [facility] 2024 End: August 06, 2024 Aquatic Facility Manager Relationship Specialty Start Date End Date Romulo Alvarez MD [address] [place] [phone] PCP - Devoted 04/09/21 Romulo Alvarez MD [address] [place] [place] [address] PCP - General Family Medicine 05/08/23 Trevor Caballero MA Family Medicine 06/17/24 Goals (unrecognized section and content) Goals may [...] BE BASED ON THE PRIMARY CLINICAL RECORDS. [employer] provides no warranty or guarantee of the accuracy or completeness of information in this document.
[2024-08-21 09:52] LABS: Hematocrit 34.6 % (36.0-48.0); Hemoglobin 10.4 g/dL (12.0-16.0); Mean Corpuscular HGB Conc 30.1 g/dL (29.9-35.2); Mean Corpuscular Hemoglobin 26.5 pg (26.7-34.0); Mean Platelet Volume 10.7 fL (9.5-13.5); Platelet Count 338 10^3/uL (150-450); Red Blood Count 3.93 10^6/uL (4.20-5.40); White Blood Count 5.1 10^3/uL (4.0-11.0)
[2024-08-21 10:44] LABS: Creatinine Urine Random 117.92 mg/dL (20.00-300.00); Protein Creatinine Ratio Urine 0.17; Total Protein Urine Random 20.5 mg/dL (<=11.9)
[2024-08-21 10:48] LABS: Albumin Level 3.6 g/dL (3.4-5.0); Anion Gap 13.4; Calcium 9.2 mg/dL (8.5-10.1); Carbon Dioxide 27.2 mmol/L (21.0-32.0); Chloride 104 mmol/L (98-107); Estimated GFR (African America 52 (>=60 mL/min/1.73m^2); Estimated GFR (Non-African Ame 43 (>=60 mL/min/1.73m^2); Glucose 142 mg/dL (74-106); Phosphorus 3.4 mg/dL (2.6-4.7); Potassium 3.6 mmol/L (3.5-5.1); Sodium 141 mmol/L (136-145); Uric Acid 4.2 mg/dL (2.6-6.0)
[2024-08-21 11:30] LABS: Percent Iron Saturation 43.6 %
[2024-08-22 04:08] LABS: Vitamin B12 496 pg/mL (232-1245)
[2024-08-22 12:08] LABS: PTH, Intact 32 pg/mL (15-65)
== END 2024-08-21 09:25 | disposition home or self-care (01) ==
LOC: LAB 09:24
PROVIDERS: PCP Family Medicine; Visit Provider Internal Medicine
DX: E78.5 Hyperlipidemia, unspecified (principal); N25.81 Secondary hyperparathyroidism of renal origin; I12.9 Hypertensive chronic kidney disease with stage 1 through stage 4 chronic kidney disease, or unspecified chronic kidney disease; E11.22 Type 2 diabetes mellitus with diabetic chronic kidney disease; N18.9 Chronic kidney disease, unspecified; D63.1 Anemia in chronic kidney disease
CPT/HCPCS: 36415; 80069; 82306; 82570; 82607; 82728; 82746; 83540; 83550; 83970; 84156; 84550; 85027

== ENCOUNTER 2025-01-13 10:21 | Outpatient (OUT) | payer MEDICARE, SELFPAY ==
--- OUTSIDE RECORDS SUMMARY | 2024-12-29 20:05 | XMS_ITS | Continuity of Care Document ---
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 Name Role Phone Romulo Garcia MD Primary Care Provider Bakari Rodriguez II, MD Attending Provider Bakari Rodriguez II, MD Other Provider Fernie Quinn MD Other Provider Kana Naidu MD Attending Provider Care Teams Patient Care Team Team Status: Active Member Role Status Dates Romulo Garcia MD Primary Care Provider Active Visit Care Team Team Status: Active Member Role Status Dates Romulo Garcia MD Primary Care Provider Active S tart: October 06, 2024 Bakari Rodriguez II, MD Attending Provider Active Start: October 06, 2024 Bakari Rodriguez II, MD Other Provider Active S tart: October 06, 2024 Fernie Quinn MD Other Provider Active Start: Rebeca hollingsworth 2024 Visit Care Team Team Status: Active Member Role Status Dates Romulo Garcia MD Primary Care Provider Active S tart: October 13, 2024 Bakari Rodriguez II, MD Attending Provider Active Start: October 13, 2024 Bakari Rodriguez II, MD Other Provider Active S tart: October 13, 2024 Fernie Quinn MD Other Provider Active Start: Rebeca trejo 2024 Visit Care Team Team Status: Inactive Member Role Status Dates Romulo Garcia MD Primary Care Provider Active S tart: October 15, 2024 End: October 15, 2024 Bakari Rodriguez II, MD Attending Provider Active Start: October 15, 2024 End: October 15, 2024 Visit Care Team Team Status: Inactive Member Role Status Dates Romulo Garcia MD Primary Care Provider Active S tart: November 12, 2024 End: November 12, 2024 Bakari Rodriguez II, MD Attending Provider Active Start: November 12, 2024 End: November 12, 2024 Visit Care Team Team Status: Inactive Member Role Status Dates Romulo Garcia MD Primary Care Provider Active S tart: November 12, 2024 End: November 12, 2024 Bakari Rodriguez II, MD Attending Provider Active Start: November 12, 2024 End: November 12, 2024 Visit Care Team Team Status: Inactive Member Role Status Dates Romulo Garcia MD Primary Care Provider Active S tart: December 24, 2024 End: December 24, 2024 Bakari Rodriguez II, MD Attending Provider Active Start: December 24, 2024 End: December 24, 2024 Visit Care Team Team Status: Inactive Member Role Status Dates Romulo Garcia MD Primary Care Provider Active S tart: December 24, 2024 End: December 24, 2024 Bakari Rodriguez II, MD Attending Provider Active Start: December 24, 2024 End: December 24, 2024 Patient Care Team Team Status: Inactive Member Role Status Dates Romulo Garcia MD Primary Care Provider Active S tart: December 29, 2024 End: December 29, 2024 Kana Naidu MD Attending Provider Active Sta rt: December 29, 2024 End: December 29, 2024 Chief Complaint and Reason for Visit Chief Complaint Admit Date Hip pain October 06, 2024 12:0 0am Hip pain October 13, 2024 12:00 am 2 WK POST OP LTHA October 15, 2024 1:41p m Z47.1 - Aftercare following joint replac ement surg November 12, 2024 9:11am 4 WK RECHECK LTHA November 12, 2024 1:2 0pm Z47.1 - Aftercare following joint replac ement surg December 24, 2024 8:37am 6 WEEKS December 24, 2024 2:22pm *RANJANA PT RIGHT INTRA-ARTICULAR HIP JOINT INJ December 29, 2024 11:59am Reason for Visit Admit Date Aftercare following left hip joint repla cement surgery October 15, 2024 1:41pm S/P total hip arthroplasty October 15 1:41pm Aftercare following left hip joint repla cement surgery November 12, 2024 1:20pm S/P total hip arthroplasty November 12 1:20pm Aftercare following left hip joint repla cement surgery December 24, 2024 2:22pm Allergies, Adverse Reactions, Alerts Allergen Type Severity Reaction Last Updated Verified Status No Known Allergies Allergy Unknown 2024 2:59pm Yes Active Social History Smoking Status Status Start Date End Date Date of Observa tion Ex-smoker (finding) September 9:27am Observation Status Observation Response Date of Response Legal Sex Female (finding) Sex Assigned At Female 1955 Family History Relationship Condition Age at Onset Recorded Date/T felipe daughter Family history of mental disorder Unknown Depression Unknown father Unknown mother Unknown sister Diabetes mellitus Unknown Heart disease Unknown Problems Active Problems Medical Problem Onset Date Status Comments Degeneration of intervertebr al disc of lumbar region with discogenic back pain Unknown Active Type 2 diabetes mellitus wit h diabetic chronic kidney disease Unknown Active Primary osteoarthritis of left hip Unknown Active Secondary hyperparathyroidism Unknown Active CKD (chronic kidney disease) stage 3, GFR 30-59 ml/min Unknown Active Hypertensive chronic kidney disease with stage 1 through stage 4 chronic kidney disease, or unspecified chronic kidney disease Unknown Active Hyperlipidemia Unknown Active S/P total hip arthroplasty Unknown Active l eft 09/29/24 Encephalopathy Unknown Active Aftercare following left hip joint replacement surgery Unknown Active Left hip pain Unknown Active Anemia of renal disease Unknown Active Anemia of renal disease Unknown Active Hypertension Unknown Active Medications Medication Status Dose Units Route Directions Qty Days St art Date Stop Date End Date Instructions Adherence Ferrous Sulfate (Ferosul) 325 mg (65 mg iron) tablet Discont inued 0 .ROUTE .COMPLEX 45 September 26, 2023 12:47p m Decem 2023 6:57p m TAKE 1 TABLET BY MOUTH EVERY OTHER DAY Magnesium Oxide 400 mg (241.3 mg magnesium) tablet Discont inued 0 .ROUTE .COMPLEX 90 2023 9:29am Octob er 2023 12:34 pm TAKE 1 TABLET BY MOUTH DAILY Ferrous Sulfate (Ferosul) 325 mg (65 mg iron) tablet Discont inued 325 MG PO Every 48 hours 45 Decemb er 2023 6:57pm Augus t 2024 1:17p m Magnesium Oxide 400 mg (241.3 mg magnesium) tablet Active 0 .ROUTE .COMPLEX 90 July 06, 2024 11:20a m TAKE 1 TABLET BY MOUTH DAILY Unknown Ferrous Sulfate (Ferosul) 325 mg (65 mg iron) tablet Active 325 MG PO Every 48 hours 45 December 04, 2024 1:17pm Unknown Oxycodone-A cetaminophe n 10-325 mg tablet Active 1 TAB PO Every 6 hours as needed for pain 120 30 Septem terence 2024 Unknown Fluoxetine 10 mg capsule Active 10 MG PO Daily September 15, 2024 12:00a m Unknown Ascorbic Acid (Vitamin C) (C-1000) 1,000 mg tablet Active 1 GM PO Daily September 15, 2024 12:00a m Unknown Acetaminoph en (Acetaminop hen Extra Strength) 500 mg tablet Discont inued 500 MG PO As Directed as needed for pain September 29, 2024 12:00a m September 29, 2024 1:25p m Tramadol 50 mg tablet Discont inued 50 MG PO Q6H as needed for Pain 40 7 October 09, 2024 7:24am [facility] 2024 2:17p m do not reconcile until DOS: 09/29/24. med to bed Oxycodone 5 mg tablet Discont inued 5 MG PO Q4H as needed for Pain 42 7 October 09, 2024 [facility] 2024 3:00p m do not reconcile until DOS: 09/29/24. med to bed Magnesium Oxide 400 mg (241.3 mg magnesium) tablet Discont inued 400 MG PO Daily August 08, 2023 12:00a m August 08, 2023 5:22p m Magnesium Oxide 400 mg (241.3 mg magnesium) tablet Discont inued 400 MG PO Daily August 08, 2023 5:21pm [facility] 2023 9:29a m Hydroxyzine Hcl 10 mg tablet Active 10 MG PO Three times daily as needed for anxiety Octobe r 2023 12:00a m Unknown Multivit-Mi n-Iron-Fa-V it K-Lut (Centrum Silver Women) 8 mg iron-400 mcg-50 mcg tablet Active 1 TAB PO Daily Octobe r 2023 12:00a m Unknown Calcium Carbonate-V itamin D3 600 mg-10 mcg (400 unit) tablet Active 1 TAB PO Twice daily [facility] 2023 12:00a m Unknown Oxycodone-A cetaminophe n 10-325 mg tablet Discont inued 1 TAB PO Every 6 hours as needed for pain [facility] 2023 12:00a m [facility] 2024 8:22a m Fluoxetine 10 mg capsule Discont inued 10 MG PO Daily [facility] 2023 12:00a m August 28, 2024 11:21 am Metoprolol Tartrate 50 mg tablet Active 50 MG PO Twice daily [facility] 2023 12:00a m Unknown Empaglifloz in (Jardiance) 10 mg tablet Discont inued 10 MG PO Daily [facility] 2023 12:00a m August 06, 2024 11:39 am Magnesium Oxide 400 mg (241.3 mg magnesium) tablet Discont inued 400 MG PO Once [facility] 2023 12:31p m July 06, 2024 11:21 am Metformin 500 mg tablet Active 500 MG PO Twice daily with meals [facility] 2023 12:00a m Unknown Alendronate 70 mg tablet Active 70 MG PO every week [facility] 2023 12:00a m Unknown Atorvastati n 10 mg tablet Active 10 MG PO Daily [facility] 2023 12:00a m Unknown Ferrous Sulfate 325 mg (65 mg iron) tablet Discont inued 325 MG PO Every 48 hours September 25, 2023 12:00a m September 25, 2023 1:29p m Ferrous Sulfate 325 mg (65 mg iron) tablet Discont inued 325 MG PO Every 48 hours 45 90 September 25, 2023 1:28pm September 26, 2023 12:47 pm Sennosides- Docusate Sodium (Senokot-S) 8.6-50 mg tablet Discont inued 2 TAB PO daily 60 30 September 17, 2024 12:00a m Augus t 2024 2:17p m do not reconcile until DOS: 09/29/24. med to bed Polyethylen e Glycol 3350 (Miralax) 17 gram/dose powder Discont inued 17 GM PO daily 7 7 September 17, 2024 12:00a m October 09, 2024 2:13p m 1 packed mixed with 8 ounces of fluid. Cefadroxil 500 mg capsule Discont inued 500 MG PO Q12H 14 September 17, 2024 12:00a m October 09, 2024 2:09p m do not reconcile until DOS: 09/29/24. med to bed Acetaminoph en 500 mg tablet Active 1000 MG PO Q8H 180 30 September 17, 2024 12:00a m do not reconcile until DOS: 09/29/24. med to bed Unknown Tramadol 50 mg tablet Discont inued 50 MG PO Q6H as needed for Pain 40 September 17, 2024 12:00a m October 09, 2024 7:24a m do not reconcile until DOS: 09/29/24. med to bed Oxycodone 5 mg tablet Discont inued 5 MG PO Q4H as needed for Pain 42 September 17, 2024 October 09, 2024 7:24a m do not reconcile until DOS: 09/29/24. med to bed Ondansetron Hcl 4 mg tablet Discont inued 4 MG PO Q8H as needed for Nausea September 17, 2024 12:00a m Septe mber 2024 3:00p m do not reconcile until DOS: 09/29/24. med to bed Pantoprazol e (Protonix) 20 mg tablet,blil yed release (DR/EC) Discont inued 20 MG PO daily 35 35 September 17, 2024 12:00a m Augus t 2024 2:17p m do not reconcile until DOS: 09/29/24. med to bed Prednisone 10 mg tablet Discont inued 10 MG PO daily 10 September 17, 2024 12:00a m October 09, 2024 2:10p m do not reconcile until DOS: 09/29/24. med to bed Tramadol 50 mg tablet Active 50 MG PO daily as needed for Pain 30 7 November 12, 2024 12:00a m Unknown Medical Equipment Device Date Implanted Device Details Orthopaedic cement, non-medicated September 29 NATALIE: [id number] Issuing Agency: [facility] Device Id: [id number] Expiration Date: 2027-01-06 Lot Number: [id number] Orthopaedic cement, non-medicated September 29 NATALIE: [id number] Issuing Agency: [facility] Device Id: [id number] Expiration Date: 2027-02-06 Lot Number: [id number] Orthopaedic cement, non-medicated September 29 NATALIE: [id number] Issuing Agency: [facility] Device Id: [id number] Expiration Date: 2027-02-06 Lot Number: [id number] Acetabular shell September 29, 2024 NATALIE: ()[id number] Issuing Agency: [facility] Device Id: [id number] Expiration Date: 2033-10-27 Lot Number: [id number] Orthopaedic bone screw, non-bioabsorbable, sterile September 29, 2024 NATALIE: ()[id number] Issuing Agency: [facility] Device Id: [id number] Expiration Date: 2033-03-13 Lot Number: [id number] Orthopaedic bone screw, non-bioabsorbable, sterile September 29, 2024 NATALIE: ()[id number] Issuing Agency: [facility] Device Id: [id number] Expiration Date: 2033-06-27 Lot Number: [id number] Orthopaedic bone screw, non-bioabsorbable, sterile September 29, 2024 NATALIE: ()[id number] Issuing Agency: [facility] Device Id: [id number] Expiration Date: 2034-02-19 Lot Number: [id number] Orthopaedic bone screw, non-bioabsorbable, sterile September 29, 2024 NATALIE: [id number] Issuing Agency: [facility] Device Id: [id number] Expiration Date: 2034-03-11 Lot Number: [id number] Orthopaedic bone screw, non-bioabsorbable, sterile September 29, 2024 NATALIE: ()[id number] Issuing Agency: [facility] Device Id: [id number] Expiration Date: 2033-12-31 Lot Number: [id number] Ceramic femoral head prosthesis September 29, 2024 NATALIE: [id number] Issuing Agency: [facility] Device Id: [id number] Expiration Date: 2034-01-21 Lot Number: [id number] Metallic acetabulum prosthesis September 29, 2024 U DI: [id number] Issuing Agency: [facility] Device Id: [id number] Expiration Date: 2028-09-03 Lot Number: [id number] Non-constrained polyethylene acetabular liner September 29, 2024 NATALIE: [id number] Issuing Agency: [facility] Device Id: [id number] Expiration Date: 2027-06-20 Lot Number: [id number] Uncoated hip femur prosthesi s, modular September 29, 2024 NATALIE: [id number] Issuing Agency: [facility] Device Id: [id number] Expiration Date: 2027-03-17 Lot Number: [id number] Procedures Procedure Date Performed Status XR hip LT min 2V(w/wo pelvis)* November 12, 2024 9:12am completed XR hip LT min 2V(w/wo pelvis)* December 24, 025 8:37am completed Relevant Diagnostic Tests and/or Laboratory Data Diagnostic Imaging Reports Author Jovany Uriostegui [facility] Authored November 12, 2024 5:3 4pm Report Dictated Date/Time Dictated By Status Radiology Report November 12, 2024 5:34pm Jovany whitt II MD completed [facility] [address] [place] [address] XRay Report Signed Patient: Doug Reed MR#: [id number] : 1955 Acct:[id number] Age/Sex: 69 / F ADM Date: 5 Loc: [facility] Room: Type: [facility] Attending Dr: Bakari Rodriguez II, MD Copies to: Bakari Rodriguez MD~ Ordering Provider: Bakari Rodriguez MD Date of Service: 11/12/24 XR/XR hip LT min 2V(w/wo pelvis)*: Z47.1 - Aftercare following joint replacement surgery XR hip LT min 2V(w/wo pelvis)* 11/12/2024 1:30 PM SIGNS AND SYMPTOMS: ^Z47.1 - Aftercare following joint replacement surgery PROTOCOL: Frontal radiograph the pelvis with crosstable lateral view of the left fifth COMPARISON: 09/29/2024 FINDINGS: Unchanged total left hip arthroplasty hardware is noted. There is no fracture or dislocation. There is severe narrowing of the right hip joint space. Degenerative changes are noted in the sacroiliac joints. Vascular calcifications are present in the soft tissues. XR/XR hip LT min 2V(w/wo pelvis)* IMPRESSION: No fracture or dislocation. Uncomplicated total left hip arthroplasty. Degenerative changes are noted in the right hip similar to the prior exam. Impression dictated by: Jovany Uriostegui M.D. 11/12/2024 5:35 PM Dictation Location: [place] [address] Transcribed By: [facility] 11/12/241734 Dictated By: Jovany Uriostegui II, MD 11/12/241733 Signed By: <Electronically signed by Jovany Uriostegui II, MD in [place]> 11/12/241734 Author Jovany Uriostegui [facility] Authored December 24, 2024 9:59pm Report Dictated Date/Time Dictated By Status Radiology Report December 24, 2024 9:59pm Jovany Uriostegui II MD completed [facility] [address] [place] [address] XRay Report Signed Patient: Doug Reed MR#: [id number] : 1955 Acct:[id number] Age/Sex: 69 / F ADM Date: 5 Loc: [facility] Room: Type: [facility] Attending Dr: Bakari Rodriguez II, MD Copies to: Bakari Rodriguez MD~ Ordering Provider: Bakari Rodriguez MD Date of Service: 12/24/24 XR/XR hip LT min 2V(w/wo pelvis)*: Z47.1 - Aftercare following joint replacement surgery XR hip LT min 2V(w/wo pelvis)* 12/24/2024 2:53 PM SIGNS AND SYMPTOMS: ^Z47.1 - Aftercare following joint replacement surgery PROTOCOL: Frontal radiograph the pelvis with crosstable lateral view of the left hip COMPARISON: 11/12/2024 FINDINGS: There is total left hip arthroplasty hardware without hardware complication or change in alignment. The bony ring of the pelvis is intact. Degenerative changes are noted in the right hip. General changes are noted in the lumbar spine and sacral iliac joints. Vascular calcifications are present in the soft tissues. XR/XR hip LT min 2V(w/wo pelvis)* IMPRESSION: Uncomplicated total left hip arthroplasty hardware. Severe degenerative changes are noted in the right hip joint space with degenerative changes also noted in the lumbar spine and sacroiliac joints. Impression dictated by: Jovany Uriostegui M.D. 12/24/2024 10:00 PM Dictation Location: [facility] Transcribed By: [facility] 12/24/242199 Dictated By: Jovany Uriostegui II, MD 12/24/242158 Signed By: <Electronically signed by Jovany Uriostegui II, MD in [place]> 12/24/242199 Advance Directives Advance Directive Response Recorded Date/ Time Advance Directives No August 06 025 12:48pm Insurance Providers Guarantor Doug Reed Address [address] [place] [phone] Contact Info. Home Phone: Payer Policy Id Subscriber's Name Subscriber Id Effectiv e Date Expiration Date Oracio VERMA [id number] Doug Reed [id number] Encounters Encounter Location(s) Arrival/Admit Date Discharge/Depart Date Provider(s) Non-patient / Non-visit -[facility] October 06, 2024 12:00am Jim Vizcarra MD Non-patient / Non-visit -[facility] October 13, 2024 12:00am Jim Vizcarra MD Departed Physician/Prov ider Office Visit -[facility] October 15, 2024 1:41pm October 15, 2024 2:37pm Jim Vizcarra MD Departed Clinical -[facility] November 12, 2024 9:11am November 12, 2024 9:12am Jim Vizcarra MD Departed Physician/Prov ider Office Visit -[facility] November 12, 2024 1:20pm November 12, 2024 3:04pm Jim Vizcarra MD Departed Clinical -[facility] December 24, 2024 8:37am December 24, 2024 8:38am Jim Vizcarra MD Departed Physician/Prov ider Office Visit -[facility] December 24, 2024 2:22pm December 24, 2024 4:00pm Jim Vizcarra MD Departed Physician/Prov ider Office Visit -[facility] December 29, 2024 11:59am December 29, 2024 11:59pm Marsha Colvin MD Recent Diagnosis Onset Date Admit Date Aftercare following left hip joint replacement surgery Unknown October 15, 2024 1:41pm S/P total hip arthroplasty Unknown October 15, 2024 1:41pm Aftercare following left hip joint replacement surgery Unknown November 12, 2024 1:20pm S/P total hip arthroplasty Unknown 2024 1:20pm Aftercare following left hip joint replacement surgery Unknown December 24, 2024 2:22pm Assessments Diagnosis Onset Date Resolution Status Admit Date Aftercare following left hip joint replacement surgery acute October 152024 1:41pm S/P total hip arthroplasty acute October 15, 2024 1:41pm Aftercare following left hip joint replacement surgery acute November 12, 2024 1:20pm S/P total hip arthroplasty acute November 12, 2024 1:20pm Aftercare following left hip joint replacement surgery acute 2024 2:22pm
--- OUTSIDE RECORDS SUMMARY | 2025-01-09 10:45 | XMS_ITS | Encounter Summary ---
Author Organization [facility] Address [address] [place] [address] Care Team Providers Care It Desktop Support Specialist Name Role Phone Romulo Garcai MD Primary Care Provider [phone] Reason for Visit * Reason Comments Ingrown Toenail Doug Reed is a 68 y.o. female who presents for Right great toenail ING pain, medial border.Patient called PCP, and was given Doxycycline 100MG 2x daily, started 01/02/2025 BS: 114 A1C: 5.2/LV Dr. Garcia 08/11/2024 SS: 9.5 Encounter Details Date Type Department Care Team (Late st Contact Info) Description 01/09/2025 10:45 AM EDT Office Visit [facility] [address] [place] [address] Vianey Warner, DPM [address] [place], [place] [id number] Ingrown nail (Primary Dx); Type II or unspecified type diabetes mellitus with neurological manifestations, not stated as uncontrolled(250.60) ([facility]); Onychomycosis; Pain in toes of both feet Social History Tobacco Use Types Packs/Day Years Used Date Smoking Tobacco: Former Cigarettes Q uit: 1977 Passive Smoke Exposure: Past Smokeless Tobacco: Never Tobacco Cessation:Counseling Given: Not Answered Comments:Smoked for 2 years Alcohol Use Standard Drinks/Week Comments Not Currently 0 (1 standard drink = 0.6 oz pur e alcohol) PHQ-2 Answer Date Recorded Patient Health Questionnaire-2 Score 0 02/28/2024 Comments Unknown Sex and Gender Information Value Date Recorded Sex Assigned at Not on file Legal Sex Female 7:32 PM EDT Gender Identity Not on file Sexual Orientation Not on file documented as of this encounter Last Filed Vital Signs Vital Sign Reading Time Taken Comments Blood Pressure - - Pulse - - Temperature - - Respiratory Rate - - Oxygen Saturation - - Inhaled Oxygen Concentration - - Weight 68.9 kg (152 lb) 01/09/2025 10:50 AM EDT Height 172.7 cm (5' 8 ) 01/09/2025 10:50 AM EDT Body Mass Index 23.11 01/09/2025 10:50 AM EDT documented in this encounter Progress Notes * Vianey Warner, CHRISTINA - 01/09/2025 10:45 AM EDT Images from the original note were not included. Subjective Patient ID: Doug Reed is a 69 y.o. female who presents for Ingrown Toenail (Doug Reed is a 68 y.o. female who presents for Right great toenail ING pain, medial border.Patient called PCP, and was given Doxycycline 100MG 2x daily, started 01/02/2025 BS: 114 A1C: 5.2/LV Dr. Garcia 08/11/2024SS: 9.5). HPI Patient presents complaining of elongated, thick, fungal nails. The right great toenail is very painful and ingrown. She started antibiotics with her PCP on 01/02/25. She was last seen here in August, she had a hip replacement in September. She is having a hard time reaching her toenails. She is requesting nail debridement today in treatment for the ingrown right medial hallux nail. Review of Systems Medications Current Outpatient Medications: [...] Disp:, Rfl: FLUoxetine (PROzac) 10 MG capsule, TAKE [...] MOUTH TWICE DAILY, Disp: 180 tablet,Rfl: 3 Multiple Vitamins-Minerals (Centrum Silver 50+Women) tablet, Take 1 tablet by mouth daily, Disp: 90tablet, Rfl: 3 senna-docusate sodium (Senokot-S) 8.6-50 MG tablet, Take 1 tablet by mouth in the morning., Disp: ,Rfl: Allergies Patient has no known allergies. Past Surgical History Past Surgical History: Procedure Laterality Date COLONOSCOPY TONSILLECTOMY TOTAL HIP ARTHROPLASTY Left 09/17/2024 Family History Family History Problem Relation Name [...] and 2 due to deformity. PAIN: pain at medial right hallux nail and with debridement of nails. MUSCLE STRENGTH: 4/5 [...] none. NAIL PATHOLOGY:R hallux nail medially is incurvated and ingrown. There is a mild erythema and inflammation at the medial right hallux nail fold. The nail is 5mm thick, yellow and brown, fungal, [...] and Affect: Mood normal. Behavior: Behavior normal. [address] Assessment/Plan ICD-10-CM 1. Ingrown nail L60.0 2. Type II or unspecified type diabetes mellitus with neurological manifestations, not stated as uncontrolled(250.60) ([facility]) E11.49 3. Onychomycosis B35.1 4. Pain in toes of both feet M79.674 M79.675 Reviewed with the patient that debridement of the nails should remove the offending distal medial aspect of the right toenail. Patient agrees and states she had nail debridement scheduled for a few weeks and would like to have it done today instead. All mycotic nails were debrided in length and thickness by manual and mechanical means. Small and large nail nipper used along with electronic vaibhav. Patient relates symptomatic improvement after nail debridement today. Advised patient of proper footcare to prevent any future complications. If the nail continues to be ingrown at this border, we discussed the possibility of a more permanent partial nail avulsion. Patient will plan to return in 4 m [facility], she will call sooner if any problems arise. This note was created with the assistance of a speech recognition program. While intending to generate a timely document that accurately reflects the content of the visit, no guarantee can be provided that every grammatical or spelling mistake has been or will be identified or corrected. Thank you for your understanding. Vianey Warner DPM documented in this encounter Plan of Treatment Upcoming Encounters Date Type Department Care Team (Late st Contact Info) Description 05/12/2025 10:00 AM EST Office Visit [facility] [address] [place] [address] Vianey Warner DPM [address] [place], [place] [phone] documented as of this encounter Visit Diagnoses Diagnosis Ingrown nail- Primary Ingrowing nail Type II or unspecified type diabetes mellitus with neurological manifestations, not stated as uncontrolled(250.60) ([facility]) Type II or unspecified type diabetes mellitus with neurological manifestations, not stated as uncontrolled Onychomycosis Dermatophytosis of nail Pain in toes of both feet documented in this encounter Additional Health Concerns Assessment Noted Time PHQ-9 Depression Total Score: 1 02/28/20 24 1:00 PM EST documented as of this encounter Care Teams It Desktop Support Specialist Relationship Specialty Start Date End Date Romulo Garcia MD [address] [place] [address] PCP - General Family Medicine 05/08/23 documented as of this encounter
--- OUTSIDE RECORDS SUMMARY | 2025-01-13 10:25 | XMS_ITS | Encounter Summary ---
Author Organization [facility] Address [address] [place] [address] Care Team Providers Care Fashion Styling Intern Name Role Phone Romulo Garcia MD Primary Care Provider [phone] Romulo Garcia MD Unavailable Romulo Garcia MD Primary Care Provider [phone] Kylah Tomlinson LPN Unavailable Unavailable Debora Choudhary RESOLUTION AGENT Unavailable [phone] Trevor Caballero MA Unavailable [phone] Encounter Details Date Type Department Care Team (Late st Contact Info) Description 03/26/2023 Clinisync Result Encounter [facility] External Department Unsolicited Romulo Garcia MD [address] [place] [address] Social History Tobacco Use Types Packs/Day Years Used Date Smoking Tobacco: Former Cigarettes Q uit: 1977 Smokeless Tobacco: Never Comments:Smoked for 2 years Alcohol Use Standard Drinks/Week Comments Not Currently 0 (1 standard drink = 0.6 oz pur e alcohol) Comments Unknown Sex and Gender Information Value Date Recorded Sex Assigned at Not on file Legal Sex Female 7:32 PM EDT Gender Identity Not on file Sexual Orientation Not on file documented as of this encounter Plan of Treatment Upcoming Encounters Date Type Department Care Team (Late Contact Info) Description 05/12/2025 10:00 AM EST Office Visit [facility] [address] [place] [address] Vianey Warner, DPM [address] [place] [address] documented as of this encounter Procedures Procedure Name Priority Date/Time Associated Diagnosis Comments MM TOMOSYNTHESIS SCREENING BI 03/26/2023 2:23 PM EST [facility] PTH, INTRAOPERATIVE Routine 03/26/2023 11:18 AM EST documented in this encounter Results * MM TOMOSYNTHESIS SCREENING BI (03/26/2023 2:23 PM EST) Anatomical Region Laterality Modality Other 03/26/2023 2:23 PM EST Narrative 03/26/2023 2:24 [place] [address] Mammography Report Signed Patient: Doug Reed MR#: [id number] : 1955 Acct:[id number] Age/Sex: 67 / F ADM Date: 03/26/23 Loc: MAMMO Attending Dr: Romulo Garcia M.D. Ordering Physician: Romulo Garcia M.D. Results: Date of Service: 03/26/23 Follow Up: Procedure(s): MM tomosynthesis screening BI Accession Number(s): [id number] cc: Romulo Garcia M.D. Patient Name: DOUG REED MR#: [id number] : 1955 Exam Date: 03/26/2023 Ordering Doctor: DR Romulo Garcia . RADIOLOGY REPORT PROCEDURE: MM TOMOSYNTHESIS SCREENING BI COMPARISON: MG MAMM SCREEN 3D [place] CAD, 10/25/2020. MG MAMM SCREEN 3D [place] CAD, 01/09/2022. INDICATIONS: Screening Calculator Name NCI Breast Cancer Risk Assessment Tool 5 Year Breast Cancer Risk 1.40% Lifetime Breast Cancer Risk 4.30% Personal Breast Cancer No Personal Ovarian Cancer No Treatments None Family Cancers None LOCATION: [facility] BREAST COMPOSITION: Almost entirely fatty. FINDINGS: DIAGNOSTIC CATEGORY 1--NEGATIVE. NO CHANGE FROM COMPARISON ASSESSMENT. Scattered benign-appearing calcifications are present. Scattered benign-appearing lymph nodes are present. RIGHT BREAST: No significant suspicious finding. LEFT BREAST: No significant suspicious finding. RECOMMENDATIONS: ROUTINE MAMMOGRAM AND CLINICAL EVALUATION IN 12 MONTHS. PLEASE NOTE: A NORMAL MAMMOGRAM DOES NOT EXCLUDE THE POSSIBILITY OF BREAST CANCER. A CLINICALLY SUSPICIOUS PALPABLE LUMP SHOULD BE BIOPSIED. Dictated by: Mateo Fox MD on 03/26/2023 at 14:22 Approved by: Mateo Fox MD on 03/26/2023 at 14:23 Dictated By: Mateo Fox M.D. Signed By: 03/26/23 1424 DD/ 22 TD/TT: Crossbar Switch Adjuster: Procedure Note Radiology, Radiologist, MD - 03/26/2023 [place] [address] Mammography Report Signed Patient: Doug Reed EMR#: [id number] : 1955cct:[id number] Age/Sex: 67 / FADM Date: 03/26/23 Loc: MAMMO Attending Dr: Romulo Garcia M.D. Ordering Physician: Romulo Garcia M.D.Results: Date of Service: 03/26/23Follow Up: Procedure(s): MM tomosynthesis screening BI Accession Number(s): [id number] cc: Romulo Garcia M.D. Patient Name: DOUG REED MR#: [id number] : 1955 Exam Date: 03/26/2023 Ordering Doctor: DR Romulo Smart RADIOLOGY REPORT PROCEDURE: MM TOMOSYNTHESIS SCREENING BI COMPARISON: MG MAMM SCREEN 3D [place]ICK CAD, 10/25/2020. MG MAMM SCREEN 3DBIL CAD, 01/09/2022. INDICATIONS: Screening Calculator Name NCI Breast Cancer Risk Assessment Tool 5 Year Breast Cancer Risk 1.40% Lifetime Breast Cancer Risk 4.30% Personal Breast Cancer No Personal Ovarian Cancer No Treatments None Family Cancers None LOCATION: [facility] BREAST COMPOSITION: Almost entirely fatty. FINDINGS: DIAGNOSTIC CATEGORY 1--NEGATIVE. NO CHANGE FROM COMPARISON ASSESSMENT. Scattered benign-appearing calcifications are present. Scattered benign-appearing lymph nodes are present. RIGHT BREAST: No significant suspicious finding. LEFT BREAST: No significant suspicious finding. RECOMMENDATIONS: ROUTINE MAMMOGRAM AND CLINICAL EVALUATION IN 12 MONTHS. PLEASE NOTE: A NORMAL MAMMOGRAM DOES NOT EXCLUDE THE POSSIBILITY OFBREAST CANCER. A CLINICALLY SUSPICIOUS PALPABLE LUMP SHOULD BE BIOPSIED. Dictated by: Mateo Fox MD on 03/26/2023 at 14:22 Approved by: Mateo Fox MD on 03/26/2023 at 14:23 Dictated By: Mateo Fox M.D. Signed By:03/26/23 1424 DD/ 22 TD/TT: Crossbar Switch Adjuster: us Romulo Garcia MD [facility] Final Result * [facility] PTH, INTRAOPERATIVE (03/26/2023 11:18 AM EST) PTH, INTACT 18 15 - 65 pg/mL [facility] Comment: Performed at: [place] [id number] Horse Trainer: Rakesh Grace PhD, Phone: [phone] 03/26/2023 11:1 8 AM EST 03/26/2023 11:19 AM EST Narrative [facility] - 03/27/2023 12:09 PM EST us Generic External Data Provider [facility] F inal Result [facility] documented in this encounter Visit Diagnoses Not on filedocumented in this encounter Care Teams Fashion Styling Intern Relationship Specialty Start Date End Date Romulo Garcia MD PCP - General Family Medicine 04/09/22 05/07/23 Romulo Garcia MD [address] [place] [address] PCP - Devoted 04/09/21 10/06/24 Romulo Garcia MD [address] [place] [address] PCP - General Family Medicine 05/08/23 Kylah Tomlinson LPN Licensed Practical Nurse Family Medicine 09/14/2304/01 Debora Choudhary, DYLON [address] [place] [address] Lapidarist Family Medicine 06/17/24 06/17/24 Trevor Caballero, FAY [address] [place] [address] Family Medicine 06/17/24 12/02/24 documented as of this encounter
--- OUTSIDE RECORDS SUMMARY | 2025-01-13 10:25 | XMS_ITS | Encounter Summary ---
Author Organization [facility] Address [address] [facility] [place] [address] Care Team Providers Care Cross Country/Track And Field Coach Name Role Phone Romulo Garcia MD Unavailable Romulo Garcia MD Primary Care Provider [phone] Debora Choudhary EMAIL ADMINISTRATOR Unavailable [phone] Trevor Caballero MA Unavailable [phone] Encounter Details Date Type Department Care Team (Late Contact Info) Description 11/12/2023 [facility] [address] [place] [address] Romulo Garcia MD [address] [place] [address] Social History Tobacco Use Types Packs/Day Years Used Date Smoking Tobacco: Former Cigarettes Q uit: 1978 Passive Smoke Exposure: Past Smokeless Tobacco: Never Comments:Smoked for 2 years Alcohol Use Standard Drinks/Week Comments Not Currently 0 (1 standard drink = 0.6 oz pur e alcohol) PHQ-2 Answer Date Recorded Patient Health Questionnaire-2 Score 0 10/18/2023 Comments Unknown Sex and Gender Information Value Date Recorded Sex Assigned at Not on file Legal Sex Female 7:32 PM EDT Gender Identity Not on file Sexual Orientation Not on file documented as of this encounter Plan of Treatment Upcoming Encounters Date Type Department Care Team (Late Contact Info) Description 05/12/2025 10:00 AM EST Office Visit [facility] [address] [place] [address] Vianey Warner, DPM [address] [place], [place] [address] documented as of this encounter Visit Diagnoses Not on filedocumented in this encounter Care Teams Cross Country/Track And Field Coach Relationship Specialty Start Date End Date Romulo Garcia MD [address] [place] [address] PCP - Devoted 04/09/21 10/06/24 Romulo Garcia MD [address] [place] [address] PCP - General Family Medicine 05/08/23 Debora Choudhary, DYLON [address] [place], [place] [phone] Anthropologist Physical Family Medicine 06/17/24 06/17/24 Trevor Caballero, FAY [address] [place] [address] Family Medicine 06/17/24 12/02/24 documented as of this encounter
--- OUTSIDE RECORDS SUMMARY | 2025-01-13 10:25 | XMS_ITS | Encounter Summary ---
Author Organization [facility] Address [address] [facility] [place] [address] Care Team Providers Care Framing Manager Name Role Phone Romulo Garcia MD Unavailable Romulo Garcia MD Primary Care Provider [phone] Debora Choudhary Unavailable [phone] Trevor Caballero MA Unavailable [phone] Encounter Details Date Type Department Care Team (Late Contact Info) Description 10/01/2023 Orders Only [facility] [address] [facility] [address] [place] [address] Jr. Vikas Kumar, DO [address] [facility] [address] [place] [address] Social History Tobacco Use Types Packs/Day Years [...] EST Office Visit [facility] [address] [place] [address] Vianey Warner, DPM [address] [place], [place] [address] documented as of this encounter Procedures Procedure Name Priority Date/Time Associated Diagnosis Comments URINALYSIS, COMPLETE W/MICROSCOPY Routine 10/01/2023 9:02 AM EDT documented in this encounter Results * Urinalysis with microscopic (10/01/2023 9:02 AM EDT) Urine Urine specimen obtained by clean catch procedure / Unknown [facility] Vikas Kumar DO LAB URINE ORDERABLES Fi nal Result documented in this encounter Visit Diagnoses Not on filedocumented in this encounter Care Teams Framing Manager Relationship Specialty Start Date End Date Romulo Garcia MD [address] [place] [address] PCP - Devoted 04/09/21 10/06/24 Romulo Garcia MD [address] [place] [address] PCP - General Family Medicine 05/08/23 Debora Choudhary LSW [address] [place] [address] Building Energy Retrofit Technician Family Medicine 06/17/24 06/17/24 Trevor Caballero, FAY [address] [place] [address] Family Medicine 06/17/24 12/02/24 documented as of this encounter
--- OUTSIDE RECORDS SUMMARY | 2025-01-13 10:25 | XMS_ITS | Encounter Summary ---
Author Organization [facility] Address [address] [facility] [place] [address] Care Team Providers Care Application Support Consultant Name Role Phone Romulo Garcia MD Unavailable Romulo Garcia MD Primary Care Provider [phone] Debora Choudhary PHYSICIAN INTERNIST Unavailable [phone] Trevor Caballero MA Unavailable [phone] Encounter Details Date Type Department Care Team (Late st Contact Info) Description 10/16/2023 Orders Only [facility] [address] [place] [address] Romulo Gacria MD [address] [place] [address] Social History Tobacco Use Types Packs/Day Years [...] on file documented as of this encounter Functional Status * Over the past 2 weeks, how often have you been bothered by any of the following problems? Question Answer Date of Assessment Author Little interest or pleasure in doing things Not at all 10/18/2023 1:15 PM EDT Trevor Caballero M A Feeling down, depressed, or hopeless Not at all 10/18/2023 1:15 PM EDT Trevor Caballero M A Patient Health Questionnaire -2 Score 0 10/18/2023 1:15 PM EDT Trevor Caballero M A documented as of this encounter Plan of Treatment Upcoming Encounters Date Type Department Care Team (Late st Contact Info) Description 05/12/2025 10:00 AM EST Office Visit [facility] [address] [place] [address] Vianey Warner, DPM [address] [place], [place] [address] documented as of this encounter Procedures Procedure Name Priority Date/Time Associated Diagnosis Comments ELECTROCARDIOGRAM REPORT Routine 024 9:45 AM EDT documented in this encounter Results * Electrocardiogram Report (10/12/2023 9:45 AM EDT) us Romulo Garcia MD IN CLINIC/BEDSIDE ORDERABLES Fin al Result documented in this encounter Visit Diagnoses Not on filedocumented in this encounter Care Teams Application Support Consultant Relationship Specialty Start Date End Date Romulo Garcia MD [address] [place] [address] PCP - Devoted 04/09/21 10/06/24 Romulo Garcia MD [address] [place] [address] PCP - General Family Medicine 05/08/23 Debora Choudhary, PHYSICIAN INTERNIST [address] [place] [address] Tax Manager Family Medicine 06/17/24 06/17/24 Trevor Caballero MA [address] [place] [address] Family Medicine 06/17/24 12/02/24 documented as of this encounter
--- OUTSIDE RECORDS SUMMARY | 2025-01-13 10:25 | XMS_ITS | Encounter Summary ---
Author Organization [facility] Address [address] [place] [address] Care Team Providers Care Leather Colorer Name Role Phone Romulo Garcia MD Primary Care Provider [phone] Romulo Garcia MD Unavailable Romulo Garcia MD Primary Care Provider [phone] Kylah Tomlinson LPN Unavailable Unavailable Kenrick Debora PALEONTOLOGICAL HELPER Unavailable [phone] Trevor Caballero MA Unavailable [phone] Encounter Details Date Type Department Care Team (Late st Contact Info) Description 12/18/2022 Abstract [facility] [address] [place] [address] Vianey Warner DPM [address] [place], [place] [address] Social History Tobacco Use Types Packs/Day Years Used Date Smoking Tobacco: Never Assessed Comments Unknown Sex and Gender Information Value Date Recorded Sex Assigned at Not on file Legal Sex Female 7:32 PM EDT Gender Identity Not on file Sexual Orientation Not on file documented as of this encounter Plan of Treatment Upcoming Encounters Date Type Department Care Team (Late st Contact Info) Description 05/12/2025 10:00 AM EST Office Visit [facility] [address] [place] [address] Vianey Warner DPM [address] [place], [place] [address] documented as of this encounter Visit Diagnoses Not on filedocumented in this encounter Care Teams Leather Colorer Relationship Specialty Start Date End Date Romulo Garcia MD PCP - General Family Medicine 04/09/22 05/07/23 Romulo Garcia MD [address] [place] [address] PCP - Devoted 04/09/21 10/06/24 Romulo Garcia MD [address] [place] [address] PCP - General Family Medicine 05/08/23 Kylah Tomlinson LPN Licensed Practical Nurse Family Medicine 09/14/2304/01 Debora Choudhary, PALEONTOLOGICAL HELPER [address] [place] [address] Deputy Director Family Medicine 06/17/24 06/17/24 Trevor Caballero MA [address] [place] [address] Family Medicine 06/17/24 12/02/24 documented as of this encounter
--- OUTSIDE RECORDS SUMMARY | 2025-01-13 10:25 | XMS_ITS | Encounter Summary ---
Author Organization [facility] Address [address] [facility] [place] [address] Care Team Providers Care Washer Carcass Name Role Phone Romulo Garcia MD Unavailable Romulo Garcia MD Primary Care Provider [phone] Debora Choudhary FURNACE REPAIRER Unavailable [phone] Trevor Caballero MA Unavailable [phone] Encounter Details Date Type Department Care Team (Late Contact Info) Description 04/28/2024 [facility] [address] [facility] [place] [place] [address] Romulo Garcia MD [address] [place] [address] Social History Tobacco Use Types Packs/Day Years [...] Office Visit [facility] [address] [place] [address] Vianey Warner, DPM [address] [place], [place] [address] documented as of this encounter Visit Diagnoses Not on filedocumented in this encounter Additional Health Concerns Assessment Noted Time PHQ-9 Depression Total Score: 1 02/28/20 24 1:00 PM EST documented as of this encounter Care Teams Washer Carcass Relationship Specialty Start Date End Date Romulo Garcia MD [address] [place] [address] PCP - Devoted 04/09/21 10/06/24 Romulo Garcia MD [address] [place] [place] [address] PCP - General Family Medicine 05/08/23 Debora Choudhary, FURNACE REPAIRER [address] [place] [address] Student Success Coach Family Medicine 06/17/24 06/17/24 Trevor Caballero MA [address] [place] [address] Family Medicine 06/17/24 12/02/24 documented as of this encounter
--- OUTSIDE RECORDS SUMMARY | 2025-01-13 10:25 | XMS_ITS | Encounter Summary ---
Author Organization [facility] Address [address] [place] [address] Care Team Providers Care Sports Athletic Trainer Name Role Phone Maribel Alvarez MD Unavailable Maribel Alvarez MD Primary Care Provider [phone] Kylah Tomlinson LPN Unavailable Unavailable Debora Choudhary COIN COUNTER AND WRAPPER Unavailable [phone] Trevor Caballero MA Unavailable [phone] Encounter Details Date Type Department Care Team (Late st Contact Info) Description 07/05/2023 Clinisync Result Encounter [facility] External Department Unsolicited Maribel Alvarez MD [address] [place] [address] Social History Tobacco Use Types Packs/Day Years [...] Description 05/12/2025 10:00 AM EST Office Visit [facility] [address] [place] [phone] Vianey Warner, DPM [address] [place] [address] documented as of this encounter Procedures Procedure Name Priority Date/Time Associated Diagnosis Comments XR HIP LT MIN 2V 07/05/2023 12:1 1 PM EDT documented in this encounter Results * XR HIP LT MIN 2V (07/05/2023 12:11 PM EDT) Anatomical Region Laterality Modality Other 07/05/2023 12:1 1 PM EDT Narrative 07/05/2023 12:14 [place] [address] XRay Report Signed Patient: DOUG REED MR#: [id number] : 1955 Acct:[id number] Age/Sex: 67 / F ADM Date: 07/05/23 Loc: [facility] Attending Dr: Maribel Alvarez M.D. Ordering Physician: Maribel Alvarez M.D. Date of Service: 07/05/23 Procedure(s): XR hip LT min 2V Accession Number(s): [id number] cc: Maribel Alvarez M.D. The [place] [id number] Patient Name: DOUG REED MRN: [id number] date: 1955 Sex: F Assigned Patient Location: [facility] Current Patient Location: [facility] Accession/Order Number: [id number] Exam Date: 07/05/2023 09:20 Report Date: 07/05/2023 12:11 At the request of: MARIBEL ALVAREZ Procedure: XR hip LT min 2V PROCEDURE: XR hip LT min 2V COMPARISON: None. HISTORY: Primary Osteoarthritis Of Left Hip M16.12 FINDINGS: BONES:No acute fracture or dislocation. Severe osteoarthritis with marked bony remodeling. Flattening of the femoral head. SOFT TISSUES:Negative. No visible soft tissue swelling. EFFUSION:None visible. OTHER: Negative. XR/XR hip LT min 2V IMPRESSION: Severe osteoarthritis Electronically authenticated by: CONNIE LICEA Date: 07/05/2023 12:11 Dictated By: Connie Licea M.D. Signed By: [id number] DD/ 10 TD/TT: Driving School Instructor: Procedure Note Radiology, Radiologist, - 07/05/2023 The [place] [id number] XRay Report Signed Patient: DOUG REED EMR#: [id number] : 1955cct:[id number] Age/Sex: 67 / FADM Date: 07/05/23 Loc: RAD Attending Dr: Maribel Alvarez M.D. Ordering Physician: Maribel Alvarez M.D. Date of Service: 07/05/23 Procedure(s): XR hip LT min 2V Accession Number(s): [id number] cc: Maribel Alvarez M.D. [place] [id number] Patient Name: DOUG REED MRN: [id number] date: 1955 Sex: F Assigned Patient Location: [facility] Current Patient Location: [facility] Accession/Order Number: [id number] Exam Date: 07/05/2023 09:20 Report Date: 07/05/2023 12:11 At the request of: MARIBEL ALVAREZ Procedure: XR hip LT min 2V PROCEDURE: XR hip LT min 2V COMPARISON: None. HISTORY: Primary Osteoarthritis Of Left Hip M16.12 FINDINGS: BONES:No acute fracture or dislocation. Severe osteoarthritis with markedbony remodeling. Flattening of the femoral head. SOFT TISSUES:Negative. No visible soft tissue swelling. EFFUSION:None visible. OTHER: Negative. XR/XR hip LT min 2V IMPRESSION: Severe osteoarthritis Electronically authenticated by: CONNIE LICEA Date: 07/05/2023 12:11 Dictated By: Connie Licea M.D. Signed By:07/05/231213 DD/ 10 TD/TT: Driving School Instructor: Maribel Alvarez MD [facility] Final Result documented in this encounter Visit Diagnoses Not on filedocumented in this encounter Care Teams Sports Athletic Trainer Relationship Specialty Start Date End Date Maribel Alvarez MD [address] [place] [address] PCP - Devoted 04/09/21 10/06/24 Maribel Alvarez MD [address] [place] [address] PCP - General Family Medicine 05/08/23 Kylah Tomlinson LPN Licensed Practical Nurse Family Medicine 09/14/2304/01 Debora Choudhary, COIN COUNTER AND WRAPPER [address] [place] [address] Supply Tech Family Medicine 06/17/24 06/17/24 Trevor Caballero MA [address] [place] [address] Family Medicine 06/17/24 12/02/24 documented as of this encounter
--- OUTSIDE RECORDS SUMMARY | 2025-01-13 10:25 | XMS_ITS | Encounter Summary ---
Author Organization [facility] Address [address] [place] [address] Care Team Providers Care Fuse Cutter Name Role Phone Romulo Garcia MD Primary Care Provider [phone] Encounter Details Date Type Department Care Team (Latest Contact Info) Description 01/08/2025 Travel Social History Tobacco Use Types Packs/Day Years [...] EST Office Visit [facility] [address] [place] [phone] Vianey Warner, DPM [address] [place] [address] documented as of this encounter Visit Diagnoses Not on filedocumented in this encounter Additional Health Concerns Assessment Noted Time PHQ-9 Depression Total Score: 1 02/28/20 24 1:00 PM EST documented as of this encounter Care Teams Fuse Cutter Relationship Specialty Start Date End Date Romulo Garcia MD [address] [place] [address] PCP - General Family Medicine 05/08/23 documented as of this encounter
--- OUTSIDE RECORDS SUMMARY | 2025-01-13 10:25 | XMS_ITS | Clinical Summary ---
Author Organization [employer] Address [id number] [address] [place] [address] Care Team Providers Care Science Education Professor Name Role Phone Romulo Garcia MD Primary Care Provider [phone] Allergies No known active allergies Medications atorvastatin (LIPITOR) 10 mg tablet Take 1 tablet (10 mg total) by mouth in the morning. Active losartan-hydroc hlorothiazide (HYZAAR) 100-25 mg per tablet Take 1 tablet by mouth in the morning. Active aspirin 81 mg Take 1 tablet (81 mg total) by mouth in the morning. Active ferrous sulfate 325 (65 FE) mg tablet Take 1 tablet (325 mg total) by mouth every other day. Active sennosides-docu sate sodium (SENNA WITH DOCUSATE SODIUM) 8.6-50 mg Take 1 tablet by mouth in the morning. Active magnesium oxide (MAGOX) 400 mg tablet Take 1 tablet (400 mg total) by mouth in the morning. 08/18/2023 Active metoprolol tartrate (LOPRESSOR) 50 mg tablet Take 1 tablet (50 mg total) by mouth in the morning and 1 tablet (50 mg total) before bedtime. 06/21/2023 Active metFORMIN (GLUCOPHAGE) 500 mg tablet Take 1 tablet (500 mg total) by mouth in the morning and 1 tablet (500 mg total) in the evening. Take with meals. 07/13/2023 Active alendronate (FOSAMAX) 70 mg tablet Take 1 tablet (70 mg total) by mouth Once a week. sundays06/12/2023 Active multivit-min/ir on/FA/vit K/lut (CENTRUM SILVER WOMEN ORAL) Take 1 tablet by mouth in the morning. Active Active Problems No known active problems Family History Medical History Relation Name Comments Fibromyalgia Daughter Diabetes Maternal Grandfather Relation Name Status Comments Daughter Alive Father Maternal Grandfather Mother Son Social History Tobacco Use Types Packs/Day Years Used Date Smoking Tobacco: Former Cigarettes Smokeless Tobacco: Never Tobacco Cessation:Counseling Given: Not Answered Alcohol Use Standard Drinks/Week Comments No 0 (1 standard drink = 0.6 oz pur e alcohol) Childcare Answer Date Recorded Childcare Unknown 09/18/2018 Employment Answer Date Recorded Employment Unknown 09/18/2018 Hunger Screening Answer Date Recorded Within the past 12 months we worried whether our food would run out before we got money to buy more. Never True 07/13/2022 Within the past 12 months th e food we bought just didn't last and we didn't have money to get more. Never True 07/13/2022 Purpose - Life Answer Date Recorded Purpose and direction in life Unknown Comments Unknown Sex and Gender Information Value Date Recorded Sex Assigned at Not on file Legal Sex Female 11:22 AM EDT Gender Identity Not on file Sexual Orientation Not on file Last Filed Vital Signs Vital Sign Reading Time Taken Comments Blood Pressure - - Pulse - - Temperature - - Respiratory Rate - - Oxygen Saturation - - Inhaled Oxygen Concentration - - Weight 78 kg (172 lb) 09/19/2023 10:12 AM EDT Height 172.7 cm (5' 8 ) 09/19/2023 10:12 AM EDT Body Mass Index 26.15 09/19/2023 10:12 AM EDT Plan of Treatment Health Maintenance Due Date Last Done Comments Depression Screening 1965 DTaP,Tdap and Td Vaccines (1 - Tdap) 1972 Fall Risk Screening 2018 Adult BMI Screening 09/18/2024 09/19/2023 Tobacco Screening 09/18/2024 09/19/2023 COVID-19 Vaccine (4 - 2024-2 6 season) 2024 02/15/2021, 07/23/2020, 06/24/2020 Influenza Vaccine 12/08/2024 Colonoscopy 07/27/2027 07/26/2022, 11/02/2011 Zoster (Shingles) Vaccine Completed 11/10/2020, Medical Devices Not on file Procedures Procedure Name Priority Date/Time Associated Diagnosis Comments COLONOSCOPY Routine 07/26/2022 Encounter for screening colonoscopy from Last 3 Months or Most Recently Relevant to Health Maintenance Results * Colonoscopy (07/26/2022) us Vianey Silveira COREMAKING MACHINE SETTER-YARD PERSON GI PROCEDURE ORDERABL ES Final Result MANUALLY TRANSCRIBED RESULTS from Last 3 Months or Most Recently Relevant to Health Maintenance Insurance [employer] Care Teams Science Education Professor Relationship Specialty Start Date End Date Romulo Garcia MD PCP - General Family Medicine 07/13/22
--- OUTSIDE RECORDS SUMMARY | 2025-01-13 10:25 | XMS_ITS | Encounter Summary ---
Author Organization [facility] Address [address] [place] [place] [address] Care Team Providers Care Correction Officer Supervisor Name Role Phone Romulo Garcia MD Unavailable Romulo Garcia MD Primary Care Provider [phone] Trevor Caballero MA Unavailable [phone] Encounter Details Date Type Department Care Team (Late Contact Info) Description 08/28/2024 Abstract [facility] [address] [place] [address] Romulo Garcia MD [address] [facility] [place] [address] Social History Tobacco Use Types Packs/Day Years [...] Office Visit [facility] [address] [place] [phone] Vianey Warner W, DPM [address] [place] [address] documented as of this encounter Visit Diagnoses Not on filedocumented in this encounter Additional Health Concerns Assessment Noted Time PHQ-9 Depression Total Score: 1 02/28/20 24 1:00 PM EST documented as of this encounter Care Teams Correction Officer Supervisor Relationship Specialty Start Date End Date Romulo Garcia MD [address] [place] [address] PCP - Devoted 04/09/21 10/06/24 Romulo Garcia MD [address] [place] [address] PCP - General Family Medicine 05/08/23 Trevor Caballero MA [address] [place] [address] Family Medicine 06/17/24 12/02/24 documented as of this encounter
--- OUTSIDE RECORDS SUMMARY | 2025-01-13 10:25 | XMS_ITS | Clinical Summary ---
Author Organization [facility] Address [address], [address] [place] [address] Care Team Providers Care Assurance Manager Insurance Name Role Phone Romulo Garcia MD Primary Care Provider + Allergies No known active allergies Medications atorvastatin (LIPITOR) 10 MG tablet Take 10 mg by mouth daily Active metFORMIN (GLUCOPHAGE) 1000 MG tablet Take 1,000 mg by mouth 2 times daily (with meals) Active losartan (COZAAR) 100 MG tablet Take 100 mg by mouth daily Active hydroCHLOROthiaz nyeda (HYDRODIURIL) 25 MG tablet Take 25 mg by mouth daily Active metoprolol tartrate (LOPRESSOR) 50 MG tablet Take 50 mg by mouth 2 times daily Active aspirin 81 MG EC tablet Take 81 mg by mouth daily Active Multiple Vitamins-Mineral s (THERAPEUTIC MULTIVITAMIN-MIN ERALS) tablet Take 1 tablet by mouth daily Active acetaminophen (TYLENOL) 500 MG tablet Take 500 mg by mouth every 6 hours as needed for Pain Active Family History Medical History Relation Name Comments Other Other No family h/o o varian or breast cancer, no family h/o DVT. Relation Name Status Comments Father Maternal Grandfather Maternal Grandmother Mother Other Other Paternal Grandfather Paternal Grandmother Sister 1 Alive Sister 2 Alive Social History Tobacco Use Types Packs/Day Years Used Date Smoking Tobacco: Never Smokeless Tobacco: Never Alcohol Use Standard Drinks/Week Comments Never 0 (1 standard drink = 0.6 oz pur e alcohol) AUDIT-C Answer Date Recorded Q1: How often do you have a drink containing alc ohol? Never 07/20/2020 Q2: How many drinks containi ng alcohol do you have on a typical day when you are drinking? Not asked 07/20/2020 Q3: How often do you have six or more drinks on one occasion? Never 07/20/2020 PHQ-2 Answer Date Recorded PHQ-9 Total Score 0 07/20/2020 Comments No Sex and Gender Information Value Date Recorded Sex Assigned at Not on file Legal Sex Female 2:13 PM EDT Gender Identity Not on file Sexual Orientation Not on file Last Filed Vital Signs Vital Sign Reading Time Taken Comments Blood Pressure 138/84 07/20/2020 11:25 AM EDT Pulse - - Temperature - - Respiratory Rate - - Oxygen Saturation - - Inhaled Oxygen Concentration - - Weight 75.8 kg (167 lb) 07/20/2020 11:25 AM EDT Height 172.7 cm (5' 8 ) 07/20/2020 11:25 AM EDT Body Mass Index 25.39 07/20/2020 11:25 AM EDT Plan of Treatment Not on file Insurance [employer] Care Teams Assurance Manager Insurance Relationship Specialty Start Date End Date Romulo Garcia MD [address] [place] [address] PCP - General Family Medicine 07/20/20
--- OUTSIDE RECORDS SUMMARY | 2025-01-13 10:25 | XMS_ITS | Encounter Summary ---
Author Organization [facility] Address [address] [place] [address] Care Team Providers Care Hazardous Materials Driver Name Role Phone Romulo Garcia MD Primary Care Provider [phone] Encounter Details Date Type Department Care Team (Latest Contact Info) Description 01/09/2025 Travel Social History Tobacco Use Types Packs/Day [...] EST Office Visit [facility] [address] [place] [phone] Vianey Warner, DPM [address] [place] [address] documented as of this encounter Visit Diagnoses Not on filedocumented in this encounter Additional Health Concerns Assessment Noted Time PHQ-9 Depression Total Score: 1 02/28/20 24 1:00 PM EST documented as of this encounter Care Teams Hazardous Materials Driver Relationship Specialty Start Date End Date Romulo Garcia MD [address] [place] [address] PCP - General Family Medicine 05/08/23 documented as of this encounter
--- OUTSIDE RECORDS SUMMARY | 2025-01-13 10:25 | XMS_ITS | Clinical Summary ---
Author Organization [facility] Address [address] [place] [address] Care Team Providers Care Hurl Shaker Name Role Phone Romulo Garcia MD Primary Care Provider [phone] Allergies No known active allergies Medications ferrous sulfate 325 (65 Fe) MG tablet Take 325 mg by mouth in the morning. Take with meals. Active magnesium oxide (Mag-Ox) 400 mg tablet 400 mg in the morning. Active senna-docusate sodium (Senokot-S) 8.6-50 MG tablet Take 1 tablet by mouth in the morning. Active cholecalciferol (Vitamin D-3) 25 MCG tablet Take 25 mcg by mouth in the morning. Active calcium carbonate EX (Tums Extra Strength) 750 MG chewable tablet Chew 750 mg Daily Active atorvastatin (Lipitor) 10 MG tabletIndications:D yslipidemia Take 1 tablet (10 mg) by mouth Daily 30 tablet 11 4 Active metoprolol tartrate (Lopressor) 50 MG tabletIndications:E ssential (primary) hypertension TAKE 1 TABLET BY MOUTH TWICE DAILY 180 tablet 3 4 Active Calcium Carb-Cholecalcifero l 600-10 MG-MCG tabletIndications:A ge-related osteoporosis without current pathological fracture TAKE 1 TABLET BY MOUTH TWICE DAILY 180 tablet 5 4 Active hydrOXYzine HCl (Atarax) 10 MG tabletIndications:G AD (generalized anxiety disorder) Take 1 tablet (10 mg) by mouth every 8 (eight) hours if needed for anxiety 90 tablet 2 4 Active Multiple Vitamins-Minerals (Centrum Silver 50+Women) tabletIndications:A ge-related osteoporosis without current pathological fracture Take 1 tablet by mouth daily 90 tablet 3 4 Active metFORMIN (Glucophage) 500 MG tabletIndications:T ype 2 diabetes mellitus with hyperglycemia, without long-term current use of insulin (HCC) Take 1 tablet (500 mg) by mouth in the morning and 1 tablet (500 mg) in the evening. Take with meals. 200 tablet 3 5 Active dextromethorphan (Delsym) 30 MG/5ML liquidIndications:U pper respiratory tract infection, unspecified type Take 10 mL (60 mg) by mouth in the morning and 10 mL (60 mg) before bedtime. 89 mL 2 5 Active FLUoxetine (PROzac) 10 MG capsuleIndications: KENZIE (generalized anxiety disorder) TAKE 1 CAPSULE BY MOUTH ONCE DAILY 30 capsule 2 5 Active oxyCODONE-acetamino phen (Percocet) 10-325 MG tabletIndications:D egeneration of intervertebral disc of lumbar region with discogenic back pain Take 1 tablet by mouth 4 (four) times a day as needed for severe pain 120 tablet 5 01/02/20 25 Active Problems Problem Noted Date Diagnosed Date Medicare annual wellness visit, subsequent 02/27 Assessment & Plan (02/28/2024 1:48 PM EST): Due for labs. Discussed proper diet and regular aerobic exercise. Need aerobic exercise 5-6 days a week for 30 minutes at a time. Smaller portions and limit total calories. Colonoscopy every 10 years. Tetanus every 10 years. Advised not to smoke. Discussed daily Aspirin therapy. Encounter for long-term current use of medicatio n 02/28/2024 Recurrent UTI 12/11/2023 Assessment & Plan (12/11/2023 1:37 PM EDT): Recent UTI and repeat culture. KENZIE (generalized anxiety disorder) 10/18/2023 Assessment & Plan (10/18/2023 2:42 PM EDT): Poorly controlled anxiety, affecting quality of life. Patient feels overwhelmed sometimes and has difficulty with racing thoughts and anxiety. Will start patient on Prozac, along with hydroxyzine as needed Follow up in 1 month to assess response to rx. Preoperative clearance 09/25/2023 Assessment & Plan (08/28/2024 1:55 PM EDT): Able to proceed with upcoming surgery at low risk for complications. History of DM and HTN but controlled with medication. No history of CAD. Not having chest pain or palpitations. Recommend routine preop testing. Assessment & Plan (12/11/2023 1:37 PM EDT): Able to proceed with upcoming surgery at low risk for complications. History of DM and HTN but controlled with medication. No history of CAD. Not having chest pain or palpitations. Return to ortho. Assessment & Plan (09/25/2023 2:09 PM EDT): Able to proceed with upcoming surgery at low risk for complications. History of DM and HTN but controlled with medication. No history of CAD. Not having chest pain or palpitations. Reviewed PAT. CKD stage 3a, GFR 45-59 ml/min 06/12/2023 Assessment & Plan (06/12/2023 2:30 PM EST): Follow up with nephrology DDD (degenerative disc disease), lumbar 06/12/19 Assessment & Plan (12/11/2023 1:37 PM EDT): Pain stable and use percocet PRN. Assessment & Plan (06/12/2023 2:42 PM EST): Pain stable and use percocet PRN. Return to PT. Dyslipidemia 06/12/2023 Onychomycosis 06/12/2023 Osteoarthritis of left hip 06/12/2023 Assessment & Plan (08/28/2024 1:55 PM EDT): Increased pain and follow with ortho. Assessment & Plan (12/11/2023 1:37 PM EDT): Increased pain and follow with ortho. Assessment & Plan (09/25/2023 2:10 PM EDT): Increased pain and follow with ortho. Assessment & Plan (06/12/2023 2:42 PM EST): Pain stable and use percocet PRN. Return to PT. Osteoarthritis of left knee 06/12/2023 Stress, reaction gross 06/12/2023 Type 2 diabetes mellitus wit h hyperglycemia, without long-term current use of insulin 06/12/2023 Assessment & Plan (08/28/2024 1:55 PM EDT): Reports BS controlled and due for A1C. Stick to ADA diet and limit carbs. Assessment & Plan (12/11/2023 1:36 PM EDT): BS controlled and last A1C 6.2. Stick to ADA diet and limit carbs. Assessment & Plan (09/25/2023 2:10 PM EDT): BS controlled and A1C 6.2. Stick to ADA diet and limit carbs. Assessment & Plan (06/12/2023 2:43 PM EST): BS controlled and due for A1C. Stick to ADA diet and limit carbs. Type 2 diabetes mellitus wit h chronic kidney disease, without long-term current use of insulin 06/12/2023 Assessment & Plan (12/11/2023 1:37 PM EDT): Add jardiance Assessment & Plan (06/12/2023 2:43 PM EST): Due for A1C. Follow up with nephrology. Age-related osteoporosis wit hout current pathological fracture 06/12/2023 Assessment & Plan (06/12/2023 2:42 PM EST): Refill fosamax. Benign essential hypertension 06/12/2023 Assessment & Plan (08/28/2024 1:55 PM EDT): BP controlled and monitor PRN. Assessment & Plan (12/11/2023 1:37 PM EDT): BP remains controlled without losartan and monitor PRN. Assessment & Plan (10/18/2023 2:41 PM EDT): Too tightly controlled, given her age. Discontinue Losartan/hydrochlorothiazide C/w Lopressor, monitor BP at home. Bring BP long next appointment so that medications can be adjusted. Assessment & Plan (09/25/2023 2:09 PM EDT): BP controlled and monitor PRN. Assessment & Plan (06/12/2023 2:42 PM EST): BP controlled and monitor PRN. Resolved Problems Problem Noted Date Diagnosed Date Resolved Date Hospital discharge follow-up 10/18/2023 12/11/2023 Assessment & Plan (10/18/2023 2:43 PM EDT): Patient here for follow up after recent hospital admission at Reviewed hospital records. Answered patient's questions and concerns related to hospital stay/medication changes/results of testing. On Levaquin, feeling better. Still feels weak but improved. Encounters Date Type Department Care Team Description 01/09/2025 10:45 AM EDT Office Visit [facility] [address] [place] [address] Vianey Warner DPM Ingrown nail (Primary Dx); Type II or unspecified type diabetes mellitus with neurological manifestations, not stated as uncontrolled(250.60) ([facility]); Onychomycosis; Pain in toes of both feet 01/09/2025 Bamboo flowsheet [facility] [address] [place] [address] Vianey Warner DPJim 01/09/2025 Travel 01/08/2025 Travel 12/02/2024 [facility]ill [facility] [address] [place] [address] Romulo Garcia MD Degeneration of intervertebral disc of lumbar region with discogenic back pain 11/05/2024 Patient Outreach [facility] [address] [place] [phone] Federico JeffFAY humphrey 11/04/2024 Refill [facility] [place] [facility] [address] [place] [place] [phone] Romulo Garcia MD Degeneration of intervertebral disc of lumbar region with discogenic back pain from Last 3 Months Family History Medical History Relation Name Comments Diabetes Maternal Grandfather Relation Name Status Comments Father Maternal Grandfather Mother Social History Tobacco Use Types Packs/Day Years [...] Sign Reading Time Taken Comments Blood Pressure 130/78 08/28/2024 1:29 PM EDT Pulse 89 08/28/2024 1:29 PM EDT Temperature 36.2 C (97.1 F) 08/28/2024 1:29 PM EDT Respiratory Rate 20 08/28/2024 1:29 PM EDT Oxygen Saturation 98% 08/28/2024 1:29 PM EDT Inhaled Oxygen Concentration - - Weight 68.9 kg (152 lb) 01/09/2025 10:50 AM EDT Height 172.7 cm (5' 8 ) 01/09/2025 10:50 AM EDT Body Mass Index 23.11 01/09/2025 10:50 AM EDT Plan of Treatment Upcoming Encounters Date Type Department Care Team (Late st Contact Info) Description 05/12/2025 10:00 AM EST Office Visit [facility] [address] [place] [phone] Vianey Warner, DPM [address] [place], [place] [phone] Health Maintenance Due Date Last Done Comments CT Colonography 1955 FIT-DNA 1955 FIT 1955 FOBT 1955 Sigmoidoscopy 1955 Pneumococcal Vaccine: 65+ Ye ars (1 of 1 - PCV) 10/25/2003 Influenza Vaccine (#1) 2024 Mammogram 05/06/2025 05/06/2024, 03/09, 03/26/2023, Additional history exists Colonoscopy 07/26/2032 07/26/2022 Colorectal Cancer Screening 07/26/2032 Procedures Procedure Name Priority Date/Time Associated Diagnosis Comments MM TOMOSYNTHESIS SCREENING BI 05/06/2024 12:00 PM EST from Last 3 Months or Most Recently Relevant to Health Maintenance Results * MM TOMOSYNTHESIS SCREENING BI (05/06/2024 12:00 PM EST) Anatomical Region Laterality Modality Other 05/06/2024 12:0 0 PM EST Narrative 05/06/2024 12:01 [place] [address] Mammography Report Signed Patient: DOUG REED MR#: [id number] : 1955 Acct:[id number] Age/Sex: 68 / F ADM Date: 05/06/24 Loc: MAMMO Attending Dr: Romulo Garcia M.D. Ordering Physician: Romulo Garcia M.D. Results: Date of Service: 05/06/24 Follow Up: Procedure(s): MM tomosynthesis screening BI Accession Number(s): [id number] cc: Romulo Garcia M.D. Patient Name: DOUG REED MR#: [id number] : 1955 Exam Date: 05/06/2024 Ordering Doctor: DR Romulo Garcia . RADIOLOGY [...] Family Cancers None LOCATION: [facility] BREAST COMPOSITION: The breasts are almost [...] LUMP SHOULD BE BIOPSIED. Dictated by: Mateo Licea MD on 05/06/2024 at 11:58 Approved by: Mateo Licea MD on 05/06/2024 at 12:00 Dictated By: Mateo Licea M.D. Signed By: 05/06/24 1201 DD/ 1200 TD/TT: Convention Planner: Procedure Note Radiology, Radiologist, MD - 05/06/2024 [place] [address] Mammography Report Signed Patient: DOUG REED EMR#: [id number] : 1955cct:[id number] Age/Sex: 68 / FADM Date: 05/06/24 Loc: MAMMO Attending Dr: Romulo Garcia M.D. Ordering Physician: Romulo Garcia M.D.Results: Date of Service: 05/06/24Follow Up: Procedure(s): MM tomosynthesis screening BI Accession Number(s): [id number] cc: Romulo Garcia M.D. Patient Name: DOUG REED MR#: [id number] : 1955 Exam Date: 05/06/2024 Ordering Doctor: DR Romulo Garcia . RADIOLOGY [...] Family Cancers None LOCATION: [facility] BREAST COMPOSITION: The breasts are almost entirely fatty. FINDINGS: DIAGNOSTIC CATEGORY 1--NEGATIVE. NO CHANGE FROM COMPARISON ASSESSMENT. Scattered benign-appearing nodules are present. Scatteredbenign-appearing calcifications are present. RIGHT BREAST: No significant suspicious finding. LEFT BREAST: No significant suspicious finding. RECOMMENDATIONS: ROUTINE MAMMOGRAM AND CLINICAL EVALUATION IN 12 MONTHS. PLEASE NOTE: A NORMAL MAMMOGRAM DOES NOT EXCLUDE THE POSSIBILITY OFBREAST CANCER. A CLINICALLY SUSPICIOUS PALPABLE LUMP SHOULD BE BIOPSIED. Dictated by: Mateo Licea MD on 05/06/2024 at 11:58 Approved by: Mateo Licea MD on 05/06/2024 at 12:00 Dictated By: Mateo Licea M.D. Signed By:05/06/24 1201 DD/ 1200 TD/TT: Convention Planner: Romulo Garcia MD [facility] Final Result from Last 3 Months or Most Recently Relevant to Health Maintenance Insurance [facility] [employer] [employer] Care Teams Hurl Shaker Relationship Specialty Start Date End Date Romulo Garcia MD [address] [place] [phone] PCP - General Family Medicine 05/08/23
--- OUTSIDE RECORDS SUMMARY | 2025-01-13 10:25 | XMS_ITS | Encounter Summary ---
Author Organization [facility] Address [address] [facility] [place] [address] Care Team Providers Care News Clipping Cutter Name Role Phone Romulo Garcia MD Unavailable Romulo Garcia MD Primary Care Provider [phone] Debora Choudhary OIL HEATER INSTALLER Unavailable [phone] Trevor Caballero MA Unavailable [phone] Encounter Details Date Type Department Care Team (Late Contact Info) Description 12/11/2023 Abstract [facility] [address] [place] [address] Romulo Garcia MD [address] [place] [address] Social History Tobacco Use Types Packs/Day Years [...] Office Visit [facility] [address] [place] [phone] Vianey Warner, DPM [address] [place], [place] [phone] documented as of this encounter Visit Diagnoses Not on filedocumented in this encounter Care Teams News Clipping Cutter Relationship Specialty Start Date End Date Romulo Garcia MD [address] [place] [phone] PCP - Devoted 04/09/21 10/06/24 Romulo Garcia MD [address] [place] [address] PCP - General Family Medicine 05/08/23 Debora Choudhary, DYLON [address] [facility] [place], [place] [phone] Reference Assistant Family Medicine 06/17/24 06/17/24 Trevor Caballero, MA [address] [place] [address] Family Medicine 06/17/24 12/02/24 documented as of this encounter
--- OUTSIDE RECORDS SUMMARY | 2025-01-13 10:25 | XMS_ITS | Encounter Summary ---
Author Organization [facility] Address [address] [place] [address] Care Team Providers Care Senior Oracle Database Administrator Name Role Phone Romulo Garcia MD Primary Care Provider [phone] Encounter Details Date Type Department Care Team (Late Contact Info) Description 01/09/2025 Bamboo flowsheet [facility] [address] [place] [address] Vianey Warner, CHRISTINA [address] [place], [place] [phone] Social History Tobacco Use Types Packs/Day Years [...] Office Visit [facility] [address] [place] [address] Vianey Warner, DPM [address] [place], [place] [phone] documented as of this encounter Visit Diagnoses Not on filedocumented in this encounter Additional Health Concerns Assessment Noted Time PHQ-9 Depression Total Score: 1 02/28/20 24 1:00 PM EST documented as of this encounter Care Teams Senior Oracle Database Administrator Relationship Specialty Start Date End Date Romulo Garcia MD [address] [place] [address] PCP - General Family Medicine 05/08/23 documented as of this encounter
--- OUTSIDE RECORDS SUMMARY | 2025-01-13 10:31 | XMS_ITS | CCD ---
Author Organization [facility] CliniSyal Care Team Providers Care 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 Name Role Phone Rice, Bakari W Unavailable Unavailable Rice, Bakari W Unavailable Unavailable Rice, Bakari W Unavailable Unavailable NADERER, ROMULO~[id number] UNKNOWN Unavailable Unavailable NADERER, ROMULO AVALOS Primary [...] H Attending Unavailable FAWWAD, H Consulting Unavailable JTISAMAR [...] Unavaila ble URI II, CHANO Consulting Unavailable FILUTZVIANEY Calderon Consulting Unavailable BROCK KUMAR JR Referring Unavailabl e NADERER, ROMULO Primary Care Unavailable BROCK KUMAR JR Referring Unavailabl e NADERER, ROMULO Primary Care Unavailable BROCK KUMAR JR Attending Unavailabl e STEPANIC JR, BROCK Crandall Referring Unavailabl e NADERER, ROMULO Primary Care Unavailable NATALIA ROME, BROCK Crandall Attending Unavailabl e STEPBELEN ROME, BROCK Crandall Referring Unavailabl e NADERER, ROMULO Primary Care Unavailable NATALIA ROME, BROCK Crandall Attending Unavailabl e STEPBELEN JR, BROCK Crandall Referring Unavailabl e NADERER, ROMULO Primary Care Unavailable NADERER, ROMULO Referring Unavailable NADEREMaria L, ROMULO Primary Care Unavailable Romulo Alvarez MD Unavailable Romulo Alvarez MD Primary Care Provider Romulo Alvarez MD Primary Care Provider [phone] Trevor Caballero MA Unavailable Unavailable Romulo Alvarez MD Primary Care Provider Bakari Rodriguez MD Attending Provider [phone] Ghislaine Kirkpatrick MD Other Provider JR. NATALIA, BROCK Crandall Attending Unavaila ble JR. NATALIA, BROCK Crandall Referring Unavaila ble SAGE AMOS Attending Unavailable ARIANNA GUY Attending Unavailable SAGE AMOS Referring Unavailable VIANEY MELTON Attending Unavailable NADERER, ROMULO Attending Unavailable RAMLOS, SHARONA Calderon Attending Unavailable BETTE, SAGE Jose Referring Unavailable NADSMITAR, ROMULO Attending Unavailable RAMBASEK, SHARONA Calderon Attending Unavailable RAMKACEYK, SHARONA Calderon Attending Unavailable SHAIKH OSMAN Attending Unavailable NADERER, ROMULO Attending Unavailable GERONIMO, VIANEY Rey Attending Unavailable JR. NATALIA, BROCK Crandall Attending Unavaila ble ANTONIO, ROMULO Attending Unavailable Federico APONTE, Trevor Unavailable Romulo Alvarez MD Primary Care Provider Bakari Rodriguez MD Attending Provider Ada LOVELACE, Ghislaine Attending Provider Bakari Rodriguez MD Other Provider Kai LOVELACE, Fernie Attending Provider [phone] Fernie Quinn MD Other Provider Kamala RN, Ratna Other Provider Unavailable Chang RN, Amelia Other Provider Unavailable Onelia RN, Juanita Other Provider Unavailable Barbara RN, Magdalena Other Provider Unavailable Ted RN, Lisa Other Provider Unavailable Kai RN, Maryam Other Provider Unavailable Mitesh Sims MD Other Provider Jd Kimble DO Other Provider Chidi Bright MD Other Provider Amari Keller DO Other Provider Xiang Abreu MD Other Provider [phone] Ying Luevano MD Other Provider Kelly Raygoza DO Other Provider Blayne Guillory MD Other Provider Unavailable Kiya Andersen APRN Other Provider Tayla Kay MD Other Provider Rony Ruiz MD Other Provider Humberto Bartlett MD Other Provider Unavailable Kati Aleman MD Other Provider Kelly Muñoz DO Other Provider Quyen LOVELACE, Erickson Other Provider Markell Donnelly MD Other Provider Candi BIRD-C, Saira Jose Other Provider Jerald Roberts APRN Other Provider Unavailable David LOVELACE, Lico Calderon Other Provider Immanuel LOVELACE, Bi Other Provider Mic LOVELACE, Federico Other Provider Garrett LOVELACE, Alejandro Other Provider Unavailable Gerardo Barron MD Other Provider Clarita Boo DO Other Provider Vishal Braswell DO Other Provider Zhanna Mckeon APRN Other Provider Saleem Barillas DO Other Provider Zohra LOVELACE, Edy Fernandez Other Provider Fifi Delarosa APRN Other Provider Nicki Darling APRN Other Provider Faviola LOVELACE, Tessie Other Provider Unavailable Ye Rodriguez MD Other Provider Smith DO, Harvinder Polanco Other Provider Toya Webster DO Other Provider Mic LOVELACE, Antonio Larson Other Provider Alexi West MD Other Provider [phone] Anna Mijares APRN Other Provider Unavailable Kizzy Caceres MD Other Provider Mina Foote MD Other Provider Fernie Cano MD Other Provider Kim LOVELACE, Blayne Shahid Other Provider Tal Vera MD Other Provider Pollo ZUÑIGA Yasminjuan miguel Coto Other Provider Tai ZUÑIGA, Eanenrrique Other Provider Vicki Liu RN Other Provider Unavailable Antonio LOVELACE, Romulo Primary Care Provider Bakari Rodriguez MD Attending Provider Federico APONTE, Saebel Unavailable Antonio LOVELACE, Romulo Primary Care Provider Bakari Rodriguez MD Attending Provider Joseph LOVELACE, Rony Other Provider Unavailable Mic LOVELACE, Federico Other Provider Unavailable Gerardo Barron MD Other Provider Unavailable Clarita Boo DO Other Provider Unavailable Harvinder Smith DO Other Provider Unavailable Mina Foote MD Other Provider Unavailable Antonio LOVELACE, Romulo Primary Care Provider Bakari Rodriguez MD Attending Provider Romulo Alvarez Primary Care Unavailable Michael II, Bakari Fernandez Admitting Unavailabl e [place] II, Bakari M Attending Unavailabl e [place] II, Bakari M Admitting Unavailabl e Naderer, Romulo Primary Care Unavailable Michael II, Bakari Fernandez Attending Unavailabl e Naderer, Romulo Primary Care Unavailable AdaGhislaine lowe Consulting Unavailable Michael II, Bakari M Admitting Unavailabl e [place] II, Bakari M Attending Unavailabl e Michael II, Bakari M Admitting Unavailabl e Naderer, [facility] Primary Care Unavailable [place] II, Baakri M Attending Unavailabl e [place] II, Bakari M Admitting Unavailabl e Fernie Quinn Consulting Unavailable Kadeneremaria l, Romulo Primary Care Unavailable [place] II, Bakari M Attending Unavailabl e Michael II, Bakari M Admitting Unavailabl e Naderer, [facility] Primary Care Unavailable Michael JASVIR, Bakari Fernandez Attending Unavailabl Romulo Harper MD Primary Care Provider Bakari Rodriguez MD Other Provider [phone] Fernie Quinn MD Other Provider Chano Naidu MD Attending Provider Romulo Alvarez MD Primary Care Provider Allergies Allergy Classification Reported Allergen(s) Allergy Type Date of Onset Reaction(s) Facility (1 source) No Known Medication Allergies; Translations: [No Known Medication Allergies] Propensity to adverse reactions (disorder) [facility] Repository Medications Current Medications Medication Drug Class(es) Dates Sig (Normalized) Sig (Original) acetaminophen 325 mg / oxyCODONE hydrochloride 10 mg oral tablet (20 sources) Opioid Agonist Start: 09-26-2024 End: 01-01-2025 take 1 tablet by mouth four times daily as needed for pain oxyCODONE-acetaminop hen (Percocet) 10-325 MG tablet Indications: Degeneration of intervertebral disc of lumbar region with discogenic back pain Take 1 tablet by mouth 4 (four) times a day as needed for severe pain 120 tablet 11/04/2024 12/02/2024 Discontinued Start: 01-31-2024 End: 12-23-2024 take 1 tablet by mouth every six hours as needed for pain Start: 12-13-2023 End: 09-03-2024 take 1 tablet by mouth four times daily as needed for pain oxyCODONE-acetaminophen (Percocet) 10-325 MG tablet Indications: Degeneration of intervertebral disc [...] Bisphosphonate Start: 01-31-2024 take 1 tablet by emilee th every week Start: 06-12-2023 End: 02-28-2024 take 1 tablet [...] plain water Orally ONCE A WEEK Active ascorbic acid 1000 mg oral tablet (10 sources) Vitamin C Start: 09-15-2024 take 1 tablet by emilee th once daily Start: 09-15-2024 take 1 tablet by mouth once da dariel Ascorbic Acid (Vitamin C) (C-1000) 1,000 mg tablet Active 1 GM PO Daily September 15, 2024 12:00am aspirin 81 mg delayed release oral tablet [...] atorvastatin (Lipitor) 10 MG tablet Indications: Dyslipidemia Take 1 tablet (10 mg) by mouth Daily 30 tablet 11 11/12/2023 Active take 1 tablet by mouth in [...] take 1 tablet by mouth twice daily Start: 12-13-2023 take 1 tablet by emilee th twice daily Calcium Carb-Cholecalciferol 600-10 MG-MCG tablet Indications: Age-related osteoporosis without current pathological fracture TAKE 1 [...] morning. 09/19/2023 Discontinued take 1 capsule by [facility] every twenty-four hours Vitamin D3 50 MCG (1999 UT) 1 capsule Orally Once a day Active 12 hr dextromethorphan polistirex 6 mg/ml extended release suspension (18 sources) Uncompetitive T-gihxck-G-aspartate Receptor Antagonist, Sigma-1 Agonist Start: 06-23-2024 take 10 mL by mouth in the morning dextromethorphan (Delsym) 30 MG/5ML liquid Indications: Upper respiratory tract infection, unspecified type Take 10 mL (60 mg) by mouth in the morning and 10 mL (60 mg) before bedtime. 89 mL 2 06/23/2024 Active ferrous sulfate 325 mg oral tablet (20 sources) Start: 04-08-2024 End: 12-04-2024 Start: 09-26-2023 End: 04-08-2024 take 1 tablet [...] capsule (20 sources) Serotonin Reuptake Inhibitor Start: 01-31-2024 End: 08-28-2024 take 1 capsule by mouth once daily Fluoxetine 10 mg capsule Discontinued 10 MG PO Daily January 31, 2024 12:00am August 28, 2024 11:21am Start: 10-18-2023 End: 08-28-2024 take 1 capsule by mouth once daily FLUoxetine (PROzac) 10 MG capsule Indications: KENZIE (generalized anxiety disorder) TAKE 1 CAPSULE BY MOUTH ONCE DAILY 30 capsule 2 07/07/2024 Active hydroCHLOROthiazide 25 mg / losartan potassium [...] Antihistamine Start: 01-31-2024 take 1 tablet by emilee th three times daily as needed for anxiety Start: 10-18-2023 End: 04-09-2024 take 1 tablet by mouth every eight hours for anxiety hydrOXYzine HCl (Atarax) 10 MG tablet Indications: KENZIE (generalized anxiety disorder) Take 1 tablet (10 mg) by mouth every 8 (eight) hours if needed for anxiety 90 tablet 2 01/10/2024 Active magnesium oxide 400 mg oral tablet (20 sources) Start: 07-06-2024 take 1 tablet by emilee once daily Start: 01-31-2024 End: 07-06-2024 take 1 tablet [...] morning. Active take 1 tablet by emilee once daily Magnesium Oxide 400 (240 Mg) [...] Start: 07-13-2023 take 1 tablet by emilee in the morning, then take 1 tablet [...] 50 MG tablet Indications: Essential (primary) hypertension TAKE 1 TABLET BY MOUTH TWICE DAILY 180 tablet 3 12/13/2023 Active End: 09-19-2023 take 1 tablet by mouth every twenty-four hours at bedtime metoprolol succinate XL (TOPROL-XL) 50 mg 24 hr tablet Take 1 tablet (50 mg total) by mouth in the morning and at bedtime. 09/19/2023 Discontinued take 1 tablet by emilee every twelve hours Metoprolol Tartrate 50 MG 1 tablet with food Orally Twice a day Active Multiple Vitamins-Minerals (Centrum Silver 50+Women) tablet (20 sources) Start: 02-14-2024 take 1 tablet by mouth once daily Multiple Vitamins-Minerals (Centrum Silver 50+Women) tablet Indications: Age-related osteoporosis without current pathological fracture Take 1 tablet by mouth daily 90 tablet 3 02/14/2024 Active Start: 02-14-2024 take 1 tablet by emilee th once daily Multiple Vitamins-Minerals (Centrum Silver 50+Women) tablet Indications: Age-related osteoporosis without current pathological fracture (CMS/HCC) Take 1 tablet by mouth daily 90 tablet 3 02/14/2024 Active Rdhtitau-Uqc-Ojip-Fa-Vit K-Lut (Centrum Silver Women) 8 mg iron-400 mcg-50 mcg tablet (14 sources) Start: 01-31-2024 take 1 tablet by mouth once daily Etcluqak-Npg-Mgjy-Fa-Vit K-Lut (Centrum Silver Women) 8 mg iron-400 mcg-50 mcg tablet Active 1 TAB PO Daily January 31, 2024 12:00am Complies with drug therapy Start: 01-31-2024 take 1 tablet by mouth once da dariel Start: 01-31-2024 take 1 tablet by mouth once da dariel Jubjwxvr-Qau-Yndz-Fa-Vit K- Lut (Centrum Silver Women) 8 mg iron-400 mcg-50 mcg tablet Active 1 TAB PO Daily January 31, 2024 12:00am multivit-min/iron/FA/vit K/lut (CENTRUM SILVER WOMEN ORAL) (1 source) take 1 tablet by mouth once in the morning multivit-min/iron/FA/vit K/lut (CENTRUM SILVER WOMEN ORAL) Take 1 tablet by mouth in the morning. Active traMADol hydrochloride 50 mg oral tablet (20 sources) Opioid Agonist Start : 11-12 take 1 tablet by mouth once daily as needed for pain Start: 09-17-2024 End: 11-12-2024 take 1 tablet by mouth every six hours as needed for pain Tramadol 50 mg tablet Discontinued 50 MG PO Q6H as needed for Pain 40 7 October 09, 2024 7:24am November 12, 2024 2:17pm do not reconcile until DOS: 09/29/24. med to bed Completed/Discontinued Medications Medication Drug Class(es) Dates Sig (Normalized) Sig (Original) acetaminophen 500 mg oral tablet (20 sources) Start: 09-29-2024 End: 09-29-2024 Acetaminophen (Acetaminophen Extra Strength) 500 mg tablet Discontinued 500 MG PO As Directed as needed for pain September 29, 2024 12:00am September 29, 2024 1:25pm Start: 09-17-2024 take 2 tablets by mo uth every eight hours take 1-2 capsules by mouth every six hours as needed Acetaminophen 500 mg 1-2 capsules as needed Orally every 6 hrs Active take 1-2 capsules by mouth every six hours as needed Acetaminophen 500 mg 1-2 capsules as needed Orally every 6 hrs Active cefadroxil 500 mg oral capsule (8 sources) Cephalosporin Antibacterial Start: 09-17-2024 End: 10-09-2024 take 1 capsule by mouth every twelve hours Cefadroxil 500 mg capsule Discontinued 500 MG PO Q12H 14 September 17, 2024 12:00am October 09, 2024 2:09pm do not reconcile until DOS: 09/29/24. med to bed docusate sodium 50 mg / sennosides, alf 8.6 mg oral tablet (20 sources) Start: 09-17-2024 End: 11-12-2024 take 2 tablets by mouth once daily Sennosides-Docusat e Sodium (Senokot-S) 8.6-50 mg tablet Discontinued 2 TAB PO daily 60 September 17, 2024 12:00am November 12, 2024 2:17pm do not reconcile until DOS: 09/29/24. med to bed take 1 tablet by mouth in the mo rning senna-docusate sodium (Senokot-S) 8.6-50 MG tablet Take 1 tablet by mouth in the morning. Active take 1 tablet by emilee every twenty-four hours Senna S 8.6-50 MG 1 tablet as needed Ora lly ONCE A DAY Active empagliflozin 10 mg oral tablet (20 sources) Sodium-Glucose Cotransporter 2 Inhibitor Start: 12-11-2023 End: 08-06-2024 take 1 tablet by mouth once daily Empagliflozin (Jardiance) 10 mg tablet Discontinued 10 MG PO Daily January 31, 2024 12:00am August 06, 2024 11:39am Multivitamins - (6 sources) Multivitamins - as directed Orally Not-Taking ondansetron 4 mg oral tablet (8 sources) Serotonin-3 Receptor Antagonist Start: 09-17-2024 End: 12-24-2024 take 1 tablet by mouth every eight hours as needed for nausea Ondansetron Hcl 4 mg tablet Discontinued 4 MG PO Q8H as needed for Nausea September 17, 2024 12:00am December 24, 2024 3:00pm do not reconcile until DOS: 09/29/24. med to bed oxyCODONE hydrochloride 5 mg oral tablet (20 sources) Opioid Agonist Start: 09-17-2024 End: 12-24-2024 take 1 tablet by mouth every four hours as needed for pain Oxycodone 5 mg tablet Discontinued 5 MG PO Q4H as needed for Pain 42 7 October 09, 2024 December 24, 2024 3:00pm do not reconcile until DOS: 09/29/24. med to bed take 1 tablet by mouth every six hours oxyCODONE HCl 10 MG 1 tablet as needed Orally every 6 hrs Active pantoprazole 20 mg delayed release oral tablet (8 sources) Proton Pump Inhibitor Start: 09-17-2024 End: 11-12-2024 take 1 tablet by mouth once daily Pantoprazole (Protonix) 20 mg tablet,delayed release (DR/EC) Discontinued 20 MG PO daily 35 35 September 17, 2024 12:00am November 12, 2024 2:17pm do not reconcile until DOS: 09/29/24. med to bed polyethylene glycol 3350 96740 mg powder for oral solution (8 sources) Osmotic Laxative Start: 09-17-2024 End: 10-09-2024 Polyethylene Glycol 3350 (Miralax) 17 gram/dose powder Discontinued 17 GM PO daily 7 September 17, 2024 12:00am October 09, 2024 2:13pm 1 packed mixed with 8 ounces of fluid. predniSONE 10 mg oral tablet (8 sources) Start: 09-17-2024 End: 10-09-2024 take 1 tablet by mouth once daily Prednisone 10 mg tablet Discontinued 10 MG PO daily 10 September 17, 2024 12:00am October 09, 2024 2:10pm do not reconcile until DOS: 09/29/24. med to bed sod sulf-pot chloride-mag sulf 1.479-0.188- 0.225 gram tablet (1 source) Start: 07-13-2022 End: 09-19-2023 sod sulf-pot chloride-mag sulf 1.479-0.188- 0.225 gram tablet Indications: Encounter for [...] 1 Resolved: 2 Deficiency and other anemia (20 sources) Anemia of renal disease; Translations: [Anemia [...] fracture] Onset: 4 06-12-2023 Chronic Other aftercare (20 sources) Patient encounter status; Translations: [Aftercare following joint replacement surgery] 10-13-2024 Chronic Other aftercare (1 source) Aftercare following joint replacement surgery; Translations: [Aftercare following joint replacement surgery] Onset: 5 Chronic Other aftercare (1 source) alf (current) use of aspirin; Translations: [DETENTION CURRENT USE OF ASPIRIN] Onset: 3 Episodic Other aftercare (1 source) alf (current) use of oral hypoglycemic drugs; Translations: [DETENTION USE ORAL HYPOGLYCEMIC DX] Onset: 3 Episodic Other and unspecified benign neoplasm (1 source) Personal history of colonic polyps; Translations: [PERSONAL HISTORY OF COLONIC POLYPS] Onset: 3 Episodic Other connective tissue disease (20 sources) History of total hip arthroplasty; Translations: [Presence of unspecified artificial hip joint] 09-29-2024 Chronic Comment on above: left 09/29/24 Other connective tissue disease (1 source) Presence of left artificial hip joint; Translations: [Presence of left artificial hip joint] Onset: 5 Chronic Other connective tissue disease (1 source) Presence of unspecified artificial hip joint; Translations: [Presence of unspecified artificial hip joint] Onset: 5 Chronic Other connective tissue disease (4 sources) Pain of toes of bilateral feet; Translations: [Pain in right toe(s)] 01-10-2024 Episodic Other diseases of kidney and ureters (20 sources) Secondary hyperparathyroidism; Translations: [Secondary hyperparathyroidism of renal origin] 09-27-2023 Chronic Other diseases of kidney and ureters (11 sources) Secondary hyperparathyroidism of renal origin; Translations: [Secondary hyperparathyroidism (of renal origin)] Onset: 1 Resolved: 2 Chronic Other nervous system disorders (15 sources) Disorder of brain; Translations: [Encephalopathy, unspecified] 09-30-2024 Chronic Other nervous system disorders (1 source) Encephalopathy, unspecified; Translations: [Encephalopathy, unspecified] Onset: 5 Chronic Other non-traumatic joint disorders (3 sources) Pain in unspecified knee; Translations: [PAIN IN UNSPECIFIED KNEE] Onset: 3 Episodic Other non-traumatic joint disorders (1 source) Pain in left knee; Translations: [PAIN IN LEFT KNEE] Onset: 3 Episodic Other non-traumatic joint disorders (20 sources) Hip pain; Translations: [Pain in left hip] 07-23-2024 Episodic Other screening for suspected conditions (not mental disorders or infectious disease) (10 sources) Encounter for screening for malignant neoplasm of colon; Translations: [Encounter for screening mammogram for malignant neoplasm of breast] Onset: 2 Episodic Other skin disorders (2 sources) Dystrophia unguium; Translations: [Nail dystrophy] 01-10-2024 Episodic Other skin disorders (2 sources) Ingrowing nail; Translations: [Ingrowing nail] 01-09-2025 Episodic Screening and history of mental health [...] Translations: [WEAKNESS] Onset: 01-26-2022 Episodic Mood disorders (20 sources) Mood disorders Onset: 02-28-2024 02-28-2024 Other aftercare (2 sources) Other manager long term care (current) drug therapy; Translations: [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 DRUG THERAPY] Onset: 09-05-2022 Episodic Other aftercare (20 sources) Post-discharge follow-up; Translations: [Encounter for follow-up examination after completed treatment for conditions other than malignant neoplasm] Onset: 10-18-2023 Resolved: 12-11-2023 12-11-2023 Episodic Other aftercare (20 sources) Long-term current use of drug therapy; Translations: [Other care home (current) drug therapy] Onset: 02-28-2024 02-28-2024 Episodic Other fractures (4 sources) Other specified fracture of left pubis, subsequent encounter for fracture with routine healing; Translations: [OTHER SPEC FX LT PUBIS SUB FX RTN] Onset: 10-18-2021 Episodic Other non-traumatic joint disorders (1 source) Pain in left hip; Translations: [Pain in left hip] Onset: 08-06-2024 Episodic Septicemia (except in labor) (1 source) Sepsis, unspecified organism; Translations: [SEPSIS UNSPECIFIED ORGANISM] Onset: 02-01-2022 Episodic Unclassified (1 source) CONTACT W/AND (SUSP) EXPOS COVID-19; Translations: [CONTACT W/AND (SUSP) EXPOS COVID-19] Onset: 01-16-2022 Urinary tract infections (20 sources) Urinary tract infection, site not specified; Translations: [Recurrent urinary tract infection] Onset: 02-01-2022 12-11-2023 Episodic Results Test Name Value Interpretation Reference Range Facility X-ray reportOrdered By: Jovany Uriostegui on 12-24-2024 Study report [facility] [address] [place] [address] XRay Report Signed Patient: Doug Courtney MR#: [id number] : 1955 Acct:[id number] Age/Sex: 69 / F ADM Date: 5 Loc: [facility] [place] Room: Type: [facility] Attending Dr: Bakari Rodriguez II, MD [...] pelvis with crosstable lateral view of the lefthip COMPARISON: 11/12/2024 FINDINGS: There is total left [...] Uriostegui M.D. 12/24/2024 10:00 PM Dictation Location: [place] [address] Transcribed By: [facility] 12/24/242199 Dictated By: Jovany Uriostegui II, MD 12/24/242158 Signed By: 12/24/242199 [facility] Work Phone: XR hip LT min 2V(w/wo pelvis )*on 12-24-2024 XR hip LT min 2V(w/wo pelvis)* [facility] [address] [place] [address] XRay Report Signed Patient: Doug Courtney MR#: [id number] : 1955 Acct:[id number] Age/Sex: 69 / F ADM Date: 12/24/24 Loc: [facility] [place] Room: Type: [facility] Attending Dr: Bakari Rodriguez II, MD Copies to: Bakari Rodriguez MD Ordering Provider: Bakari Rodriguez MD Date of Service: 12/24/24 XR/XR hip LT min 2V(w/wo pelvis)*: Z47.1 - Aftercare following joint replacement surgery XR hip LT min 2V(w/wo pelvis)* 12/24/2024 2:53 PM SIGNS AND SYMPTOMS: Z47.1 - Aftercare following joint replacement surgery PROTOCOL: [...] Uriostegui M.D. 12/24/2024 10:00 PM Dictation Location: [place] [address] Transcribed By: [facility] 12/24/242199 Dictated By: Jovany Uriostegui II, MD 12/24/242158 Signed By: 12/24/242199 Normal [facility] X-ray reportOrdered By: Jovany Uriostegui on 11-12-2024 Study report [facility] [address] [place] [address] XRay Report Signed Patient: Doug Courtney MR#: [id number] : 1955 Acct:[id number] Age/Sex: 69 / F ADM Date: 5 Loc: [facility] [place] Room: Type: [facility] Attending Dr: Bakari Rodriguez II, MD [...] pelvis with crosstable lateral view of the leftfifth COMPARISON: 09/29/2024 FINDINGS: Unchanged total left hip [...] Uriostegui M.D. 11/12/2024 5:35 PM Dictation Location: [place] [address] Transcribed By: [facility] 11/12/241734 Dictated By: Jovany Uriostegui II, MD 11/12/241733 Signed By: 11/12/241734 [facility] Work Phone: XR hip LT min 2V(w/wo pelvis )*on 11-12-2024 XR hip LT min 2V(w/wo pelvis)* [facility] [address] [place] [address] XRay Report Signed Patient: Doug Courtney MR#: [id number] : 1955 Acct:[id number] Age/Sex: 69 / F ADM Date: 11/12/24 Loc: [facility] [place] Room: Type: [facility] Attending Dr: Bakari Rodriguez II, MD Copies to: Bakari Rodriguez MD Ordering Provider: Bakari Rodriguez MD Date of Service: 11/12/24 XR/XR hip LT min 2V(w/wo pelvis)*: Z47.1 - Aftercare following joint replacement surgery XR hip LT min 2V(w/wo pelvis)* 11/12/2024 1:30 PM SIGNS AND SYMPTOMS: Z47.1 - Aftercare following joint replacement surgery PROTOCOL: [...] Uriostegui M.D. 11/12/2024 5:35 PM Dictation Location: [place] [address] Transcribed By: CONNIE 11/12/24 1735 Dictated By: Jovany Uriostegui II, MD 11/12/24 173 Signed By: 11/12/24 1735 Normal [facility] Glucose Poct Glucometerson 0 10-09-2024 Commemt1 Glu2: Cleaned Meter Normal [facility] Comment on above: Result Comment: PERF ORMED BY: [facility] [address] [place] [address] PATHOLOGIST SPECIMEN TRANSPORTER EDIN LANDIN M.D. Performed By: #### G LULS #### Point of Care testing , Glucose [Mass/Vol] 221 mg/dL Normal [facility] Comment on above: Result Comment: [place] Glucose Reference Range is dependent on time and content of last meal. Glucose of more than 200 mg/dL in a nonstressed, ambulatory subject supports the diagnosis of Diabetes Mellitus. Performed By: #### G LULS #### Point of Care testing , Commemt1 Glu2: Cleaned Meter Normal [facility] Comment on above: Result Comment: PERF ORMED BY: [facility] [address] [facility] [place] [address] PATHOLOGIST SPECIMEN TRANSPORTER EDIN LANDIN M.D. Performed By: #### G LULS #### Point of Care testing , Glucose [Mass/Vol] 140 mg/dL Normal [facility] Comment on above: Result Comment: [place] Glucose Reference Range is dependent on time and content of last meal. Glucose of more than 200 mg/dL in a nonstressed, ambulatory subject supports the diagnosis of Diabetes Mellitus. Performed By: #### G LULS #### Point of Care testing , Glucose Poct Glucometerson 0 10-08-2024 Glucose [Mass/Vol] 267 mg/dL Normal [facility] Comment on above: Result Comment: [place] Glucose Reference Range is dependent on time and content of last meal. Glucose of more than 200 mg/dL in a nonstressed, ambulatory subject supports the diagnosis of Diabetes Mellitus. PERFORMED BY: [facility] [address] [place] [address] PATHOLOGIST SPECIMEN TRANSPORTER EDIN LANDIN M.D. Performed By: #### G LULS #### Point of Care testing , Glucose [Mass/Vol] 222 mg/dL Normal [facility] Comment on above: Result Comment: [place] Glucose Reference Range is dependent on time and content of last meal. Glucose of more than 200 mg/dL in a nonstressed, ambulatory subject supports the diagnosis of Diabetes Mellitus. PERFORMED BY: [address] [place] [address] PATHOLOGIST SPECIMEN TRANSPORTER EDIN LANDIN M.D. Performed By: #### G LULS #### Point of Care testing , Glucose [Mass/Vol] 274 mg/dL Normal [facility] Comment on above: Result Comment: [facility] Glucose Reference Range is dependent on time and content of last meal. Glucose of more than 200 mg/dL in a nonstressed, ambulatory subject supports the diagnosis of Diabetes Mellitus. PERFORMED BY: [address] [place] [address] PATHOLOGIST SPECIMEN TRANSPORTER EDIN LANDIN M.D. Performed By: #### G LULS #### Point of Care testing , Glucose [Mass/Vol] 157 mg/dL Normal [facility] Comment on above: Result Comment: [facility] Glucose Reference Range is dependent on time and content of last meal. Glucose of more than 200 mg/dL in a nonstressed, ambulatory subject supports the diagnosis of Diabetes Mellitus. PERFORMED BY: [address] [place] [address] PATHOLOGIST SPECIMEN TRANSPORTER EDIN LANDIN M.D. Performed By: #### G LULS #### Point of Care testing , Glucose Poct Glucometerson 0 10-07-2024 Glucose [Mass/Vol] 246 mg/dL Normal [facility] Comment on above: Result Comment: [facility] Glucose Reference Range is dependent on time and content of last meal. Glucose of more than 200 mg/dL in a nonstressed, ambulatory subject supports the diagnosis of Diabetes Mellitus. PERFORMED BY: [address] [place] [address] PATHOLOGIST SPECIMEN TRANSPORTER EDIN LANDIN M.D. Performed By: #### G LULS #### Point of Care testing , Commemt1 Glu2: Cleaned Meter Normal [facility] Comment on above: Result Comment: PERF ORMED BY: [place] [address] PATHOLOGIST SPECIMEN TRANSPORTER EDIN LANDIN M.D. Performed By: #### G LULS #### Point of Care testing , Glucose [Mass/Vol] 281 mg/dL Normal [facility] Comment on above: Result Comment: [place] Glucose Reference Range is dependent on time and content of last meal. Glucose of more than 200 mg/dL in a nonstressed, ambulatory subject supports the diagnosis of Diabetes Mellitus. Performed By: #### G LULS #### Point of Care testing , Commemt1 Glu2: Cleaned Meter Normal [facility] Comment on above: Result Comment: PERF ORMED BY: [place] [address] PATHOLOGIST SPECIMEN TRANSPORTER EDIN LANDIN M.D. Performed By: #### G LULS #### Point of Care testing , Glucose [Mass/Vol] 252 mg/dL Normal [facility] Comment on above: Result Comment: [place] Glucose Reference Range is dependent on time and content of last meal. Glucose of more than 200 mg/dL in a nonstressed, ambulatory subject supports the diagnosis of Diabetes Mellitus. Performed By: #### G LULS #### Point of Care testing , Commemt1 Glu2: Cleaned Meter Normal [facility] Comment on above: Result Comment: PERF ORMED BY: [place] [address] PATHOLOGIST SPECIMEN TRANSPORTER EDIN LANDIN M.D. Performed By: #### G LULS #### Point of Care testing , Glucose [Mass/Vol] 149 mg/dL Normal [facility] Comment on above: Result Comment: [place] Glucose Reference Range is dependent on time and content of last meal. Glucose of more than 200 mg/dL in a nonstressed, ambulatory subject supports the diagnosis of Diabetes Mellitus. Performed By: #### G LULS #### Point of Care testing , Glucose Poct Glucometerson 0 10-06-2024 Glucose [Mass/Vol] 255 mg/dL Normal [facility] Comment on above: Result Comment: [place] Glucose Reference Range is dependent on time and content of last meal. Glucose of more than 200 mg/dL in a nonstressed, ambulatory subject supports the diagnosis of Diabetes Mellitus. PERFORMED BY: [address] [address] PATHOLOGIST SPECIMEN TRANSPORTER EDIN LANDIN M.D. Performed By: #### G LULS #### Point of Care testing , Glucose [Mass/Vol] 221 mg/dL Normal [facility] Comment on above: Result Comment: [place] Glucose Reference Range is dependent on time and content of last meal. Glucose of more than 200 mg/dL in a nonstressed, ambulatory subject supports the diagnosis of Diabetes Mellitus. PERFORMED BY: [address] [address] PATHOLOGIST SPECIMEN TRANSPORTER EDIN LANDIN M.D. Performed By: #### G LULS #### Point of Care testing , Glucose [Mass/Vol] 287 mg/dL Normal [facility] Comment on above: Result Comment: [place] Glucose Reference Range is dependent on time and content of last meal. Glucose of more than 200 mg/dL in a nonstressed, ambulatory subject supports the diagnosis of Diabetes Mellitus. PERFORMED BY: [address] [place] [address] PATHOLOGIST SPECIMEN TRANSPORTER EDIN LANDIN M.D. Performed By: #### G LULS #### Point of Care testing , Glucose [Mass/Vol] 147 mg/dL Normal [facility] Comment on above: Result Comment: [place] Glucose Reference Range is dependent on time and content of last meal. Glucose of more than 200 mg/dL in a nonstressed, ambulatory subject supports the diagnosis of Diabetes Mellitus. PERFORMED BY: [address] [address] PATHOLOGIST SPECIMEN TRANSPORTER EDIN LANDIN M.D. Performed By: #### G LULS #### Point of Care testing , Glucose Poct Glucometerson 0 10-05-2024 Glucose [Mass/Vol] 182 mg/dL Normal [facility] Comment on above: Result Comment: [place] Glucose Reference Range is dependent on time and content of last meal. Glucose of more than 200 mg/dL in a nonstressed, ambulatory subject supports the diagnosis of Diabetes Mellitus. PERFORMED BY: [address] [place] [address] PATHOLOGIST SPECIMEN TRANSPORTER EDIN LANDIN M.D. Performed By: #### G LULS #### Point of Care testing , Glucose [Mass/Vol] 326 mg/dL Normal [facility] Comment on above: Result Comment: [place] Glucose Reference Range is dependent on time and content of last meal. Glucose of more than 200 mg/dL in a nonstressed, ambulatory subject supports the diagnosis of Diabetes Mellitus. PERFORMED BY: [address] [place] [address] PATHOLOGIST SPECIMEN TRANSPORTER EDIN LANDIN M.D. Performed By: #### G LULS #### Point of Care testing , Glucose [Mass/Vol] 242 mg/dL Normal [facility] Comment on above: Result Comment: [place] Glucose Reference Range is dependent on time and content of last meal. Glucose of more than 200 mg/dL in a nonstressed, ambulatory subject supports the diagnosis of Diabetes Mellitus. PERFORMED BY: [address] [place] [address] PATHOLOGIST SPECIMEN TRANSPORTER EDIN LANDIN M.D. Performed By: #### G LULS #### Point of Care testing , Glucose [Mass/Vol] 143 mg/dL Normal [facility] Comment on above: Result Comment: [place] Glucose Reference Range is dependent on time and content of last meal. Glucose of more than 200 mg/dL in a nonstressed, ambulatory subject supports the diagnosis of Diabetes Mellitus. PERFORMED BY: [address] [place] [address] PATHOLOGIST SPECIMEN TRANSPORTER EDIN LANDIN M.D. Performed By: #### G LULS #### Point of Care testing , Glucose Poct Glucometerson 0 10-04-2024 Commemt1 Glu2: Cleaned Meter Normal [facility] Comment on above: Result Comment: PERF ORMED BY: [address] [address] PATHOLOGIST SPECIMEN TRANSPORTER EDIN LANDIN M.D. Performed By: #### G LULS #### Point of Care testing , Glucose [Mass/Vol] 247 mg/dL Normal [facility] Comment on above: Result Comment: [place] Glucose Reference Range is dependent on time and content of last meal. Glucose of more than 200 mg/dL in a nonstressed, ambulatory subject supports the diagnosis of Diabetes Mellitus. Performed By: #### G LULS #### Point of Care testing , Commemt1 Glu2: Cleaned Meter Normal [facility] Comment on above: Result Comment: PERF ORMED BY: [address] [place] [address] PATHOLOGIST SPECIMEN TRANSPORTER EDIN LANDIN M.D. Performed By: #### G LULS #### Point of Care testing , Glucose [Mass/Vol] 351 mg/dL Normal [facility] Comment on above: Result Comment: [place] Glucose Reference Range is dependent on time and content of last meal. Glucose of more than 200 mg/dL in a nonstressed, ambulatory subject supports the diagnosis of Diabetes Mellitus. Performed By: #### G LULS #### Point of Care testing , Commemt1 Glu2: Cleaned Meter Normal [facility] Comment on above: Result Comment: PERF ORMED BY: [address] [place] [address] PATHOLOGIST SPECIMEN TRANSPORTER EDIN LANDIN M.D. Performed By: #### G LULS #### Point of Care testing , Glucose [Mass/Vol] 225 mg/dL Normal [facility] Comment on above: Result Comment: [place] Glucose Reference Range is dependent on time and content of last meal. Glucose of more than 200 mg/dL in a nonstressed, ambulatory subject supports the diagnosis of Diabetes Mellitus. Performed By: #### G LULS #### Point of Care testing , Commemt1 Glu2: Cleaned Meter Normal [facility] Comment on above: Result Comment: PERF ORMED BY: [place] [address] PATHOLOGIST SPECIMEN TRANSPORTER EDIN LANDIN M.D. Performed By: #### G LULS #### Point of Care testing , Glucose [Mass/Vol] 153 mg/dL Normal [facility] Comment on above: Result Comment: [place] Glucose Reference Range is dependent on time and content of last meal. Glucose of more than 200 mg/dL in a nonstressed, ambulatory subject supports the diagnosis of Diabetes Mellitus. Performed By: #### G LULS #### Point of Care testing , Glucose Poct Glucometerson 0 10-03-2024 Glucose [Mass/Vol] 216 mg/dL Normal [facility] Comment on above: Result Comment: [place] Glucose Reference Range is dependent on time and content of last meal. Glucose of more than 200 mg/dL in a nonstressed, ambulatory subject supports the diagnosis of Diabetes Mellitus. PERFORMED BY: [place] [address] PATHOLOGIST SPECIMEN TRANSPORTER EDIN LANDIN M.D. Performed By: #### G LULS #### Point of Care testing , Glucose [Mass/Vol] 336 mg/dL Normal [facility] Comment on above: Result Comment: [place] Glucose Reference Range is dependent on time and content of last meal. Glucose of more than 200 mg/dL in a nonstressed, ambulatory subject supports the diagnosis of Diabetes Mellitus. PERFORMED BY: [place] [id number] PATHOLOGIST SPECIMEN TRANSPORTER EDIN LANDIN M.D. Performed By: #### G LULS #### Point of Care testing , Glucose [Mass/Vol] 261 mg/dL Normal [facility] Comment on above: Result Comment: [place] Glucose Reference Range is dependent on time and content of last meal. Glucose of more than 200 mg/dL in a nonstressed, ambulatory subject supports the diagnosis of Diabetes Mellitus. PERFORMED BY: [address] [place] [id number] PATHOLOGIST SPECIMEN TRANSPORTER EDIN LANDIN M.D. Performed By: #### G LULS #### Point of Care testing , Glucose [Mass/Vol] 157 mg/dL Normal [facility] Comment on above: Result Comment: [place] Glucose Reference Range is dependent on time and content of last meal. Glucose of more than 200 mg/dL in a nonstressed, ambulatory subject supports the diagnosis of Diabetes Mellitus. PERFORMED BY: [address] [place] [id number] PATHOLOGIST SPECIMEN TRANSPORTER EDIN LANDIN M.D. Performed By: #### G LULS #### Point of Care testing , Glucose Poct Glucometerson 0 10-02-2024 Glucose [Mass/Vol] 233 mg/dL Normal [facility] Comment on above: Result Comment: [place] Glucose Reference Range is dependent on time and content of last meal. Glucose of more than 200 mg/dL in a nonstressed, ambulatory subject supports the diagnosis of Diabetes Mellitus. PERFORMED BY: [address] [place] [id number] PATHOLOGIST SPECIMEN TRANSPORTER EDIN LANDIN M.D. Performed By: #### G LULS #### Point of Care testing , Commemt1 Glu2: Cleaned Meter Normal [facility] Comment on above: Result Comment: PERF ORMED BY: [address] [place] [id number] PATHOLOGIST SPECIMEN TRANSPORTER EDIN LANDIN M.D. Performed By: #### G LULS #### Point of Care testing , Glucose [Mass/Vol] 291 mg/dL Normal [facility] Comment on above: Result Comment: [place] Glucose Reference Range is dependent on time and content of last meal. Glucose of more than 200 mg/dL in a nonstressed, ambulatory subject supports the diagnosis of Diabetes Mellitus. Performed By: #### G LULS #### Point of Care testing , Commemt1 Glu2: Cleaned Meter Normal [facility] Comment on above: Result Comment: PERF ORMED BY: [address] [place] [address] PATHOLOGIST SPECIMEN TRANSPORTER EDIN LANDIN M.D. Performed By: #### G LULS #### Point of Care testing , Glucose [Mass/Vol] 251 mg/dL Normal [facility] Comment on above: Result Comment: [place] Glucose Reference Range is dependent on time and content of last meal. Glucose of more than 200 mg/dL in a nonstressed, ambulatory subject supports the diagnosis of Diabetes Mellitus. Performed By: #### G LULS #### Point of Care testing , Commemt1 Glu2: Cleaned Meter Normal [facility] Comment on above: Result Comment: PERF ORMED BY: [address] [address] PATHOLOGIST SPECIMEN TRANSPORTER EDIN LANDIN M.D. Performed By: #### G LULS #### Point of Care testing , Glucose [Mass/Vol] 184 mg/dL Normal [facility] Comment on above: Result Comment: [place] Glucose Reference Range is dependent on time and content of last meal. Glucose of more than 200 mg/dL in a nonstressed, ambulatory subject supports the diagnosis of Diabetes Mellitus. Performed By: #### G LULS #### Point of Care testing , Basic Metabolic Panel 2 Anion gap [Moles/Vol] 10.5 mmol/L Normal 6.0-15.0 [facility] e [facility] Comment on above: Performed By: #### G LULS #### Point of Care testing , Calcium [Mass/Vol] 8.5 mg/dL Low 8.6-10.3 [facility] Comment on above: Performed By: #### G LULS #### Point of Care testing , Chloride [Moles/Vol] 105 mmol/L Normal 98-107 [facility] Comment on above: Performed By: #### G LULS #### Point of Care testing , CO2 [Moles/Vol] 25.9 mmol/L Normal 21.0-31.0 [facility] Comment on above: Performed By: #### G LULS #### Point of Care testing , Creatinine [Mass/Vol] 0.98 mg/dL Normal 0.60-1.20 [facility] Comment on above: Performed By: #### G LULS #### Point of Care testing , Creatinine Clr Calc Pharmacy 52.62 Normal [facility] Comment on above: Result Comment: PERF ORMED BY: [facility] [address] [place] [address] PATHOLOGIST SPECIMEN TRANSPORTER EDIN LANDIN M.D. Performed By: #### G LULS #### Point of Care testing , GFR/1.73 sq M.predicted MDRD (S/P/Bld) [Vol rate/Area] mL/min/{1.73_m2} Normal [facility] Comment on above: Performed By: #### G LULS #### Point of Care testing , Glucose [Mass/Vol] 173 mg/dL High 70-100 [facility] Comment on above: Result Comment: [place] Glucose Reference Range is dependent on time and content of last meal. Glucose of more than 200 mg/dL in a nonstressed, ambulatory subject supports the diagnosis of Diabetes Mellitus. ADA recommended reference range Performed By: #### G LULS #### Point of Care testing , Potassium [Moles/Vol] 4.4 mmol/L Normal 3.5-5.1 [facility] Comment on above: Performed By: #### G LULS #### Point of Care testing , Sodium [Moles/Vol] 137 mmol/L Normal 136-145 [facility] Comment on above: Performed By: #### G LULS #### Point of Care testing , Urea nitrogen [Mass/Vol] 23 mg/dL Normal 7-25 [facility] Comment on above: Performed By: #### G LULS #### Point of Care testing , Complete Blood Count Auto Di ffon 10-01-2024 Basophils (Bld) [#/Vol] 0.0 10*3/uL Normal 0.0-0.2 [facility] Comment on above: Result Comment: PERF ORMED BY: [facility] [place] [address] PATHOLOGIST SPECIMEN TRANSPORTER EDIN LANDIN M.D. Performed By: #### G LULS #### Point of Care testing , Basophils/100 WBC (Bld) 0.2 % Normal . [facility] Comment on above: Performed By: #### G LULS #### Point of Care testing , Eosinophils (Bld) [#/Vol] 0.0 10*3/uL Normal 0.0-0.45 [facility] Comment on above: Performed By: #### G LULS #### Point of Care testing , Eosinophils/100 WBC (Bld) 0.2 % Normal . [facility] Comment on above: Performed By: #### G LULS #### Point of Care testing , Erythrocyte distribution width (RBC) [Ratio] 19.1 % High 11.9-15.3 [facility] Comment on above: Performed By: #### G LULS #### Point of Care testing , Hematocrit (Bld) [Volume fraction] 25.4 % Low 34.0-46.4 [facility] Comment on above: Performed By: #### G LULS #### Point of Care testing , Hemoglobin (Bld) [Mass/Vol] 8.2 g/dL Low 11.8-15.4 [facility] Comment on above: Performed By: #### G LULS #### Point of Care testing , Lymphocytes (Bld) [#/Vol] 1.0 10*3/uL Normal 1.00-4.8 [facility] Comment on above: Performed By: #### G LULS #### Point of Care testing , Lymphocytes/100 WBC (Bld) 13.1 % Normal . [facility] Comment on above: Performed By: #### G LULS #### Point of Care testing , MCH (RBC) [Entitic mass] 26.5 pg Normal 24.7-34.3 [facility] Comment on above: Performed By: #### G LULS #### Point of Care testing , MCV (RBC) [Entitic vol] 82.2 fL Normal 80-100 [facility] Comment on above: Performed By: #### G LULS #### Point of Care testing , Mean Corpuscular HGB Conc 32.3 g/dL Normal 32.0-35.0 [facility] Comment on above: Performed By: #### G LULS #### Point of Care testing , Monocytes (Bld) [#/Vol] 1.1 10*3/uL High 0.0-0.8 [facility] Comment on above: Performed By: #### G LULS #### Point of Care testing , Monocytes/100 WBC (Bld) 13.3 % Normal . [facility] Comment on above: Performed By: #### G LULS #### Point of Care testing , Neutrophils (Bld) [#/Vol] 5.9 10*3/uL Normal 1.8-7.7 [facility] Comment on above: Performed By: #### G LULS #### Point of Care testing , Neutrophils/100 WBC (Bld) 73.2 % Normal . [facility] Comment on above: Performed By: #### G LULS #### Point of Care testing , NRBC% 0.0 /100{WBC} Normal 0-0.5 [facility] Comment on above: Performed By: #### G LULS #### Point of Care testing , Platelet mean volume (Bld) [Entitic vol] 8.9 fL Normal 6.3-10.7 [facility] Comment on above: Performed By: #### G LULS #### Point of Care testing , Platelets (Bld) [#/Vol] 219 10*3/uL Normal 150-450 [facility] Comment on above: Performed By: #### G LULS #### Point of Care testing , RBC (Bld) [#/Vol] 3.09 10*6/uL Low 3.60-5.00 [facility] Comment on above: Performed By: #### G LULS #### Point of Care testing , WBC (Bld) [#/Vol] 8.0 10*3/uL Normal 3.8-11.6 [facility] Comment on above: Performed By: #### G LULS #### Point of Care testing , White Blood Count 8.0 [CFU]/mL Normal 3.8-11.6 [facility] Comment on above: Performed By: #### G LULS #### Point of Care testing , Glucose Poct Glucometerson 0 10-01-2024 Glucose [Mass/Vol] 223 mg/dL Normal [facility] Comment on above: Result Comment: [place] om Glucose Reference Range is dependent on time and content of last meal. Glucose of more than 200 mg/dL in a nonstressed, ambulatory subject supports the diagnosis of Diabetes Mellitus. PERFORMED BY: [place] [id number] PATHOLOGIST SPECIMEN TRANSPORTER EDIN LANDIN M.D. Performed By: #### G LULS #### Point of Care testing , Glucose [Mass/Vol] 270 mg/dL Normal [facility] Comment on above: Result Comment: [place] om Glucose Reference Range is dependent on time and content of last meal. Glucose of more than 200 mg/dL in a nonstressed, ambulatory subject supports the diagnosis of Diabetes Mellitus. PERFORMED BY: [place] [id number] PATHOLOGIST SPECIMEN TRANSPORTER EDIN LANDIN M.D. Performed By: #### G LULS #### Point of Care testing , Glucose [Mass/Vol] 234 mg/dL Normal [facility] Comment on above: Result Comment: [place] Glucose Reference Range is dependent on time and content of last meal. Glucose of more than 200 mg/dL in a nonstressed, ambulatory subject supports the diagnosis of Diabetes Mellitus. PERFORMED BY: [place] [id number] PATHOLOGIST SPECIMEN TRANSPORTER EDIN LANDIN M.D. Performed By: #### G LULS #### Point of Care testing , Glucose [Mass/Vol] 181 mg/dL Normal The [facility] Comment on above: Result Comment: [place] Glucose Reference Range is dependent on time and content of last meal. Glucose of more than 200 mg/dL in a nonstressed, ambulatory subject supports the diagnosis of Diabetes Mellitus. PERFORMED BY: [facility] [place] [address] PATHOLOGIST SPECIMEN TRANSPORTER EDIN LANDIN M.D. Performed By: #### G LULS #### Point of Care testing , Urinalysison 10-01-2024 Appearance (U) Clear Normal Clear The [facility] Comment on above: Order Comment: Name Collection Type:: Clean-Voided Midstream Performed By: #### G LULS #### Point of Care testing , Bilirubin,Urine Negative Normal Negative [facility] Comment on above: Order Comment: Name Collection Type:: Clean-Voided Midstream Performed By: #### G LULS #### Point of Care testing , Color (U) Light-Yellow Normal Yellow [facility] Comment on above: Order Comment: Name Collection Type:: Clean-Voided Midstream Performed By: #### G LULS #### Point of Care testing , Glucose Ql (U) Normal Normal Normal [facility] Comment on above: Order Comment: Name Collection Type:: Clean-Voided Midstream Performed By: #### G LULS #### Point of Care testing , Ketones Ql (U) Negative Normal Negative [facility] Comment on above: Order Comment: Name Collection Type:: Clean-Voided Midstream Performed By: #### G LULS #### Point of Care testing , Leukocyte esterase Test strip Ql (U) Negative Normal Negative The [facility] Comment on above: Order Comment: Name Collection Type:: Clean-Voided Midstream Performed By: #### G LULS #### Point of Care testing , Nitrite,Urine Negative Normal Negative The [facility] Comment on above: Order Comment: Name Collection Type:: Clean-Voided Midstream Performed By: #### G LULS #### Point of Care testing , Occult Blood,Urine Negative Normal Negative [facility] Comment on above: Order Comment: Name Collection Type:: Clean-Voided Midstream Result Comment: PERF ORMED BY: [place] [address] PATHOLOGIST SPECIMEN TRANSPORTER EDIN LANDIN M.D. Performed By: #### G LULS #### Point of Care testing , pH (U) 5.5 [pH] Normal 5.0-9.0 [facility] Comment on above: Order Comment: Name Collection Type:: Clean-Voided Midstream Performed By: #### G LULS #### Point of Care testing , Protein,Urine Negative Normal Negative [facility] Comment on above: Order Comment: Name Collection Type:: Clean-Voided Midstream Performed By: #### G LULS #### Point of Care testing , Specificy [place],Urine 1.016 Normal 1.001-1.03 0 [facility] Comment on above: Order Comment: Name Collection Type:: Clean-Voided Midstream Performed By: #### G LULS #### Point of Care testing , Urobilinogen,Urine Normal Normal Normal [facility] Comment on above: Order Comment: Name Collection Type:: Clean-Voided Midstream Performed By: #### G LULS #### Point of Care testing , Basic Metabolic Panelon 06- Anion gap [Moles/Vol] 11.8 mmol/L Normal 6.0-15.0 [facility] Comment on above: Performed By: #### B MP, CBC #### [place] [address] [place] Calcium [Mass/Vol] 8.2 mg/dL Low 8.6-10.3 [facility] Comment on above: Performed By: #### B MP, CBC #### [place] [address] [place] Chloride [Moles/Vol] 102 mmol/L Normal 98-107 [facility] Comment on above: Performed By: #### B MP, CBC #### [place] [address] [place] CO2 [Moles/Vol] 22.5 mmol/L Normal 21.0-31.0 The [facility] Comment on above: Performed By: #### B MP, CBC #### [address] Creatinine [Mass/Vol] 1.00 mg/dL Normal 0.60-1.20 [facility] Comment on above: Performed By: #### B MP, CBC #### [place] [address] [place] Creatinine Clr Calc Pharmacy 51.57 Normal The [facility] Comment on above: Result Comment: PERF ORMED BY: [place] [address] PATHOLOGIST SPECIMEN TRANSPORTER EDIN LANDIN M.D. Performed By: #### B MP, CBC #### [place] [address] [place] GFR/1.73 sq M.predicted MDRD (S/P/Bld) [Vol rate/Area] mL/min/{1.73_m2} Normal [facility] Comment on above: Performed By: #### B MP, CBC #### [address] Glucose [Mass/Vol] 196 mg/dL High 70-100 [facility] Comment on above: Result Comment: [place] Glucose Reference Range is dependent on time and content of last meal. Glucose of more than 200 mg/dL in a nonstressed, ambulatory subject supports the diagnosis of Diabetes Mellitus. ADA recommended reference range Performed By: #### B MP, CBC #### [address] Potassium [Moles/Vol] 4.3 mmol/L Normal 3.5-5.1 [facility] Comment on above: Performed By: #### B MP, CBC #### [address] Sodium [Moles/Vol] 132 mmol/L Low 136-145 [facility] Comment on above: Performed By: #### B MP, CBC #### [address] Urea nitrogen [Mass/Vol] 23 mg/dL Normal 7-25 [facility] Comment on above: Performed By: #### B MP, CBC #### [address] Complete Blood Count Auto Di ffon 09-30-2024 Basophils (Bld) [#/Vol] 0.0 10*3/uL Normal 0.0-0.2 [facility] Comment on above: Result Comment: PERF ORMED BY: [place] [address] PATHOLOGIST SPECIMEN TRANSPORTER EDIN LANDIN M.D. Performed By: #### B MP, CBC #### [address] Basophils/100 WBC (Bld) 0.3 % Normal . [facility] Comment on above: Performed By: #### B MP, CBC #### [address] Eosinophils (Bld) [#/Vol] 0.0 10*3/uL Normal 0.0-0.45 [facility] Comment on above: Performed By: #### B MP, CBC #### [address] Eosinophils/100 WBC (Bld) 0.0 % Normal . [facility] Comment on above: Performed By: #### B MP, CBC #### [address] Erythrocyte distribution width (RBC) [Ratio] 18.8 % High 11.9-15.3 [facility] Comment on above: Performed By: #### B MP, CBC #### [address] Hematocrit (Bld) [Volume fraction] 26.7 % Low 34.0-46.4 [facility] Comment on above: Performed By: #### B MP, CBC #### [address] Hemoglobin (Bld) [Mass/Vol] 8.5 g/dL Low 11.8-15.4 [facility] Comment on above: Performed By: #### B MP, CBC #### [address] Lymphocytes (Bld) [#/Vol] 0.8 10*3/uL Low 1.00-4.8 [facility] Comment on above: Performed By: #### B MP, CBC #### [address] Lymphocytes/100 WBC (Bld) 8.8 % Normal . [facility] Comment on above: Performed By: #### B MP, CBC #### [address] MCH (RBC) [Entitic mass] 26.3 pg Normal 24.7-34.3 [facility] Comment on above: Performed By: #### B MP, CBC #### [address] MCV (RBC) [Entitic vol] 82.4 fL Normal 80-100 [facility] Comment on above: Performed By: #### B MP, CBC #### [address] Mean Corpuscular HGB Conc 31.9 g/dL Low 32.0-35.0 [facility] Comment on above: Performed By: #### B MP, CBC #### [address] Monocytes (Bld) [#/Vol] 1.0 10*3/uL High 0.0-0.8 [facility] Comment on above: Performed By: #### B MP, CBC #### [address] Monocytes/100 WBC (Bld) 11.3 % Normal . [facility] Comment on above: Performed By: #### B MP, CBC #### [address] Neutrophils (Bld) [#/Vol] 7.3 10*3/uL Normal 1.8-7.7 [facility] Comment on above: Performed By: #### B MP, CBC #### [facility] [address] Neutrophils/100 WBC (Bld) 79.6 % Normal . [facility] Comment on above: Performed By: #### B MP, CBC #### [facility] [address] [place] [id number] [facility] NRBC% 0.0 /100{WBC} Normal 0-0.5 [facility] Comment on above: Performed By: #### B MP, CBC #### [facility] [address] Platelet mean volume (Bld) [Entitic vol] 9.0 fL Normal 6.3-10.7 [facility] Comment on above: Performed By: #### B MP, CBC #### [facility] [address] [place] [address] [place] Platelets (Bld) [#/Vol] 223 10*3/uL Normal 150-450 [facility] Comment on above: Performed By: #### B MP, CBC #### [facility] [address] [place] [address] [place] RBC (Bld) [#/Vol] 3.24 10*6/uL Low 3.60-5.00 The [facility] Comment on above: Performed By: #### B MP, CBC #### [facility] [address] [place] [id number] [place] WBC (Bld) [#/Vol] 9.2 10*3/uL Normal 3.8-11.6 [facility] Comment on above: Performed By: #### B MP, CBC #### [facility] [address] [place] [id number] [facility] White Blood Count 9.2 [CFU]/mL Normal 3.8-11.6 [facility] Comment on above: Performed By: #### B MP, CBC #### [facility] [address] [place] [id number] [facility] Glucose Poct Glucometerson 0 09-30-2024 Glucose [Mass/Vol] 219 mg/dL Normal [facility] Comment on above: Result Comment: [place] om Glucose Reference Range is dependent on time and content of last meal. Glucose of more than 200 mg/dL in a nonstressed, ambulatory subject supports the diagnosis of Diabetes Mellitus. PERFORMED BY: [address] [address] PATHOLOGIST SPECIMEN TRANSPORTER EDIN LANDIN M.D. Performed By: #### G LULS #### Point of Care testing , Glucose [Mass/Vol] 279 mg/dL Normal [facility] Comment on above: Result Comment: [place] om Glucose Reference Range is dependent on time and content of last meal. Glucose of more than 200 mg/dL in a nonstressed, ambulatory subject supports the diagnosis of Diabetes Mellitus. PERFORMED BY: [address] [address] PATHOLOGIST SPECIMEN TRANSPORTER EDIN LANDIN M.D. Performed By: #### G LULS #### Point of Care testing , Glucose [Mass/Vol] 130 mg/dL Normal [facility] Comment on above: Result Comment: [place] om Glucose Reference Range is dependent on time and content of last meal. Glucose of more than 200 mg/dL in a nonstressed, ambulatory subject supports the diagnosis of Diabetes Mellitus. PERFORMED BY: [address] [address] PATHOLOGIST SPECIMEN TRANSPORTER EDIN LANDIN M.D. Performed By: #### G LULS #### Point of Care testing , Glucose [Mass/Vol] 220 mg/dL Normal [facility] Comment on above: Result Comment: [place] om Glucose Reference Range is dependent on time and content of last meal. Glucose of more than 200 mg/dL in a nonstressed, ambulatory subject supports the diagnosis of Diabetes Mellitus. PERFORMED BY: [place] [id number] PATHOLOGIST SPECIMEN TRANSPORTER EDIN LANDIN M.D. Performed By: #### G LULS #### Point of Care testing , ABO/Rh Retypeon 09-29-2024 ABO/RH Recheck Result Positive Normal [facility] Comment on above: Result Comment: PERF ORMED BY: [place] [phone] PATHOLOGIST SPECIMEN TRANSPORTER EDIN LANDIN M.D. Glucose Poct Glucometerson 0 09-29-2024 Glucose [Mass/Vol] 214 mg/dL Normal [facility] Comment on above: Result Comment: [place] om Glucose Reference Range is dependent on time and content of last meal. Glucose of more than 200 mg/dL in a nonstressed, ambulatory subject supports the diagnosis of Diabetes Mellitus. PERFORMED BY: [place] [phone] PATHOLOGIST SPECIMEN TRANSPORTER EDIN LANDIN M.D. Performed By: #### G LULS #### Point of Care testing , Glucose [Mass/Vol] 164 mg/dL Normal [facility] Comment on above: Result Comment: [place] om Glucose Reference Range is dependent on time and content of last meal. Glucose of more than 200 mg/dL in a nonstressed, ambulatory subject supports the diagnosis of Diabetes Mellitus. PERFORMED BY: [place] [phone] PATHOLOGIST SPECIMEN TRANSPORTER EDIN LANDIN M.D. Performed By: #### B MP, CBC #### [address] Commemt1 Glu2: Cleaned Meter Normal [facility] Comment on above: Result Comment: PERF ORMED BY: [place] [phone] PATHOLOGIST SPECIMEN TRANSPORTER EDIN LANDIN M.D. Performed By: #### G LULS #### Point of Care testing , Glucose [Mass/Vol] 115 mg/dL Normal [facility] Comment on above: Result Comment: [place] om Glucose Reference Range is dependent on time and content of last meal. Glucose of more than 200 mg/dL in a nonstressed, ambulatory subject supports the diagnosis of Diabetes Mellitus. Performed By: #### G LULS #### Point of Care testing , Hemoglobin and Hematocriton 09-29-2024 Hematocrit (Bld) [Volume fraction] 28.2 % Low 34.0-46.4 [facility] Comment on above: Order Comment: JULIETH HANLEY IS NOT IN ROOM RN NIALL SAID SHE WILL BE UP IN 15 MINUTES -[id number] Result Comment: PERF ORMED BY: [facility] [id number] PATHOLOGIST SPECIMEN TRANSPORTER EDIN LANDIN M.D. Performed By: #### G LULS #### Point of Care testing , Hemoglobin (Bld) [Mass/Vol] 9.0 g/dL Low 11.8-15.4 [facility] Comment on above: Order Comment: JULIETH HANLEY IS NOT IN ROOM RN NIALL SAID SHE WILL BE UP IN 15 MINUTES -[id number] Performed By: #### G EVA #### Point of Care testing , Salvatore 09-29-2024 L ---- Specimen: [id number] Received: 09/30/24 Status: CORINNE Marisela Num: [id number] Spec Type: Surgical Subm Dr: Bakari Rodriguez MD Tissues: A Femoral Head - Other than Fracture (L HIP) Procedures: HE/2, Gross/Micro L3, Decalcification Age/ Patient Sex Location Account Attending Physician YudelkaDoug mccrary 68/F 4N [id number] Bakari Rodriguez MD SPEC NUM: [id number] RECD: 09/30/24 STATUS: CORINNE GERONIMO NUM: [id number] AMANUEL: 09/29/240000 SUBM DR: Bakari Rodriguez MD ENTERED: 09/30/[address] [facility] [address]: YANETH TYPE: Surgical DEPT: S ENTERED BY: [id number] RECV BY: [id number] ORDERED: HE/2, Gross/Micro L3, Decalcification ORDERED: HE/2, Gross/Micro L3, Decalcification Pathological Diagnosis A. Hip, left, bone and soft tissue (left total hip arthroplasty): Osteoarthritis, severe with subchondral fibrosis and cyst formation Osteopenia Trilinear hematopoietic marrow with maturation No malignancy seen Clinical Information Left hip pain and osteoarthritis Gross Description Part A is received in formalin labeled with the patients name, date of , and bone and tissue L hip is a femoral head, 4.5 x 5.5 x 5 cm with detached fragmented femoral neck admixed with a small amount of fibrofatty tissue, 6.5 x 5.5 x 2.5 cm in aggregate. The articular surface is remarkable for granular degeneration, eburnation, and hyperostotic change along the rim of the neck, 4 x 1.5 cm. The point of attachment for the femoral neck displays a rough and irregular area, 3 x 2 x 1 cm. The subarticular capsular surface ranges from less than 0.1 to 0.2 cm in thickness. The detached bone fragments display entirely dusky cut surfaces, while the remaining medullary bone is arias, firm and uniform. Manager Contracting sections are submitted in A1?A2 after decalcification in rapid Jared immuno. (2, , [id number] A)CAMILLA Specimen: [id number] Received: 09/30/24 Status: CORINNE Geronimo Num: [id number] Spec Type: Surgical Subm Dr: Bakari Rodriguez MD Tissues: A Femoral Head - Other than Fracture (L HIP) Procedures: HE/2, Gross/Micro L3, Decalcification Patient: Doug Courtney [id number] (Continued) Specimen: [id number] Received: 09/30/24 (Continued) Signed (signature on file) Randy Gomez Jr., MD 10/05/24 1218 Specimen: [id number] Received: 09/30/24 Status: CORINNE Geronimo Num: [id number] Spec Type: Surgical Subm Dr: Bakari Rodriguez MD Tissues: A Femoral Head - Other than Fracture (L HIP) Procedures: HE/2, Gross/Micro L3, Decalcification Patient: Doug Courtney [id number] (Continued) Specimen: Received: 09/30/24 (Continued) CPT Codes 48650, 72692 Specimen: [id number] Received: 09/30/24 Status: CORINNE Geronimo Num: [id number] Spec Type: Surgical Subm Dr: Bakari Rodriguez MD Tissues: A Femoral Head - Other than Fracture (L HIP) Procedures: HE/2, Gross/Micro L3, Decalcification Patient: Doug Courtney [id number] (Continued) Signed (signature on file) Randy Gomez Jr., MD 10/05/24 1218 Normal [facility] Type and Screenon 09-29-2024 ABO and Rh group Nom (Bld) Blood group O Rh(D) positive Normal [facility] Comment on above: Order Comment: JULIETH HANLEY IS NOT IN ROOM CAROLYNN TIERNEY SAID SHE WILL BE UP IN 15 MINUTES -[id number] Result Comment: PERF ORMED BY: [address] [id number] PATHOLOGIST SPECIMEN TRANSPORTER EDIN LANDIN M.D. XR hip LT 1Von 09-29-2024 XR hip LT 1V [facility] Main [place] [id number] XRay Report Signed Patient: Doug Courtney MR#: [id number] 846 : 1955 Acct:[id number] Age/Sex: 68 / F ADM Date: 09/29/24 Loc: [place] Room: Type: [facility] Attending Dr: Bakari Rodriguez II, MD Copies to: Bakari Rodriguez MD Ordering Provider: Bakari Rodriguez MD Date of Service: 09/29/24 XR/XR hip LT 1V: LT HIP ARTHROPLASTY Intraoperative fluoroscopy INDICATION: Hip arthroplasty Dose: 11.3 mGy Findings: Intraoperative images demonstrate placement of left hip acetabular hardware and femoral stem. XR/XR hip LT 1V IMPRESSION: Images demonstrate an orthopedic procedure . Impression dictated by: Akhil Alston M.D. 09/29/2024 10:48 PM Dictation Location: [facility]-- Transcribed By: [facility] 09/29/242247 Dictated By: Akhil Alston MD 09/29/242246 Signed By: 09/29/242247 Normal [facility] XR low pelvis w/LT x-table h ipon 09-29-2024 XR low pelvis w/LT x-table hip [facility] Main [place] [id number] XRay Report Signed Patient: Doug Courtney MR#: [id number] 846 : 1955 Acct:[id number] Age/Sex: 68 / F ADM Date: 09/29/24 Loc: [place] Room: Type: [facility] Attending Dr: Bakari Rodriguez II, MD Copies to: Bakari Rodriguez MD Ordering Provider: Bakari Rodriguez MD Date of Service: 09/29/24 XR/XR low pelvis w/LT x-table hip: Total hip, Do in PACU 2 views left hip Comparison: Left hip x-rays 08/06/2024 INDICATION: Status post left hip arthroplasty Findings: Postsurgical status post left total hip arthroplasty identified with overlying acetabular cup and femoral stem noted. Overlying subcutaneous gas identified within soft tissues. Degenerative changes right hip, moderate severe.. XR/XR low pelvis w/LT x-table hip Impression: Postsurgical changes status post left total hip arthroplasty with well aligned osseous components. Impression dictated by: Akhil Alston M.D. 09/29/2024 7:15 PM Dictation Location: [place] [address] Transcribed By: [facility] 09/29/241914 Dictated By: Akhil Alston MD 09/29/241909 Signed By: 09/29/241914 Normal [facility] Basic Metabolic Panelon Estimated GFR 49.689 mL/Min Normal [facility] Comment on above: Performed By: #### B MP, CBC #### [facility] [address] [place] [address] [place] Basophils Auto (Bld) [#/Vol] Ordered By: Bakari Rodriguez on 09-15-2024 Basophils (Bld) [#/Vol] Automated basophil count 0.0-0.2 [facility] Basophils [#/volume] in Bloo d by Automated countOrdered By: Bakari Rodriguez on 09-15-2024 Basophils (Bld) [#/Vol] 0.1 10*3/uL Normal 0.0-0.2 [facility] Comment on above: Result Comment: PERF ORMED BY: [place] [address] PATHOLOGIST SPECIMEN TRANSPORTER EDIN LANDIN M.D. Performed By: #### B MP, CBC #### [facility] [address] [place] [address] [place] Basophils/100 WBC Auto (Bld) Ordered By: Bakari Rodriguez on 09-15-2024 Basophils/100 WBC (Bld) Automated basophil % . [facility] Basophils/100 leukocytes in Blood by Automated countOrdered By: Bakari Rodriguez on 09-15-2024 Basophils/100 WBC (Bld) 1.1 % Normal . [facility] Comment on above: Performed By: #### B MP, CBC #### [facility] [address] [place] [address] [place] Calcium [Mass/volume] in Ser um or PlasmaOrdered By: Bakari Rodriguez on 09-15-2024 Calcium [Mass/Vol] Calcium [Mass/volume ] in Serum or Plasma 8.6-10.3 [facility] Calcium [Mass/Vol] 9.7 mg/dL Normal 8.6-10.3 [facility] Comment on above: Result Comment: PERF ORMED BY: [place] [address] PATHOLOGIST SPECIMEN TRANSPORTER EDIN LANDIN M.D. Performed By: #### B MP, CBC #### [address] Carbon dioxide, total [Moles /volume] in Serum or PlasmaOrdered By: Bakari Rodriguez on 09-15-2024 CO2 [Moles/Vol] Carbon dioxide, tota l [Moles/volume] in Serum or Plasma 21.0-31.0 [facility] CO2 [Moles/Vol] 28.6 mmol/L Normal 21.0-31.0 [facility] Comment on above: Performed By: #### B MP, CBC #### [address] Chloride [Moles/volume] in S rivka or PlasmaOrdered By: Bakari Rodriguez on 09-15-2024 Chloride [Moles/Vol] Chloride [Moles/vol ume] in Serum or Plasma 98-107 [facility] Chloride [Moles/Vol] 102 mmol/L Normal 98-107 [facility] Comment on above: Performed By: #### B MP, CBC #### [address] Complete Blood Count Auto Di ffon 09-15-2024 Mean Corpuscular HGB Conc 31.9 g/dL Low 32.0-35.0 [facility] Comment on above: Performed By: #### B MP, CBC #### [address] NRBC% 0.0 /100{WBC} Normal 0-0.5 [facility] Comment on above: Performed By: #### B MP, CBC #### [facility] [address] [place] [address] Creatinine [Mass/volume] in Serum or PlasmaOrdered By: Bakari Rodriguez on 09-15-2024 Creatinine [Mass/Vol] Creatinine [Mass/v olume] in Serum or Plasma 0.60-1.20 [facility] Creatinine [Mass/Vol] 1.18 mg/dL Normal 0.60-1.20 [facility] Comment on above: Performed By: #### B MP, CBC #### [facility] [address] [place], [place] [id number] [facility] ECG 12 lead ECGon 09-15-2024 ECG 12 lead ECG [facility] Main [place] [address] [place] [address] Electrocardiograph Report Signed Patient: Doug Courtney MR#: [id number] 846 : 1955 Acct:[id number] Age/Sex: 68 / F ADM Date: 09/15/24 Loc: Room: Type: [facility] Attending Dr: Bakari Rodriguez II, MD Ordering Provider: Bakari Rodriguez MD Date of Service: 09/15/2401/01/1127 ECG/ECG 12 lead ECG: preop Copies to: Test Reason : Blood Pressure : */* mmHG Vent. Rate : 83 BPM Atrial Rate : 83 BPM P-R Int : 170 ms QRS Dur : 66 ms QT Int : 374 ms P-R-T Axes : 50 41 44 degrees QTcB Int : 439 ms Normal sinus rhythm Normal ECG No previous ECGs available Confirmed by BONNY LOVELACE [facility] ([id number]) on 09/16/2024 1:40:09 PM Referred By: Electronically Signed By: SHELTON DRAPER MD [facility] Transcribed By: [facility] Signed By Shelton Draper MD, FACC 09/16/24 1340 Normal [facility] Eosinophils Auto (Bld) [#/Vo l]Ordered By: Bakari Rodriguez on 09-15-2024 Eosinophils (Bld) [#/Vol] Automated eosinophil count 0.0-0.45 [facility] Eosinophils [#/volume] in Bl ood by Automated countOrdered By: Bakari Rodriguez on 09-15-2024 Eosinophils (Bld) [#/Vol] 0.1 10*3/uL Normal 0.0-0.45 [facility] Comment on above: Performed By: #### B MP, CBC #### [facility] [address] Eosinophils/100 WBC Auto (Bl d)Ordered By: Bakari Rodriguez on 09-15-2024 Eosinophils/100 WBC (Bld) Automated eosinophil % . [facility] Eosinophils/100 leukocytes i n Blood by Automated countOrdered By: Bakari Rodriguez on 09-15-2024 Eosinophils/100 WBC (Bld) 2.3 % Normal . [facility] Comment on above: Performed By: #### B KATHRYN, CBC #### [address] Erythrocyte distribution wid th Auto (RBC) [Ratio]Ordered By: Bakari Rodriguez on 09-15-2024 Erythrocyte distribution width (RBC) [Ratio] Erythrocyte distribution width [Ratio] by Automated count High 11.9-15.3 [facility] Erythrocyte distribution wid th [Ratio] by Automated countOrdered By: Bakari Rodriguez on 09-15-2024 Erythrocyte distribution width (RBC) [Ratio] 17.9 % High 11.9-15.3 [facility] Comment on above: Performed By: #### B MP, CBC #### [address] Erythrocytes [#/volume] in B lood by Automated countOrdered By: Bakari Rodriguez on 09-15-2024 RBC (Bld) [#/Vol] 4.25 10*6/uL Normal 3.60-5.00 [facility] Comment on above: Performed By: #### B MP, CBC #### [address] Fructosamineon 09-15-2024 Fructosamine 261 umol/L Normal 0-285 [facility] Comment on above: Result Comment: Publ ished reference interval for apparently healthy subjects between age 20 and 60 is 205 - 285 umol/L and in a poorly controlled diabetic population is 228 - 563 umol/L with a mean of 396 umol/L. Performed at: [facility] [address] [place], [place] [id number] Sheriffs Officer: Rakesh Grace PhD, Phone: [phone] PERFORMED BY: [place] [address] PATHOLOGIST SPECIMEN TRANSPORTER EDIN LANDIN M.D. Performed By: #### B MP, CBC #### [address] Fructosamine [Moles/volume] in Serum or PlasmaOrdered By: Bakari Rodriguez on 09-15-2024 Fructosamine [Moles/Vol] Fructosamine [Moles/volume] in Serum or Plasma 0-285 [facility] Comment on above: Published reference interval for apparently healthysubjects between age 20 and 60 is 205 - 285 umol/L and in apoorly controlled diabetic population is 228 - 563 umol/Lwith a mean of 396 umol/L.Performed at: [address] [id number] Director: Rakesh Grace PhD, Phone: [phone] Fructosamine [Moles/Vol] 261 umol/L 0-285 [facility] Comment on above: Published reference interval for apparently healthysubjects between age 20 and 60 is 205 - 285 umol/L and in apoorly controlled diabetic population is 228 - 563 umol/Lwith a mean of 396 umol/L.Performed at: [place] [id number] [place], [place] [id number] Director: Rakesh Grace PhD, Phone: [phone] Glucose [Mass/volume] in Ser um or PlasmaOrdered By: Bakari Rodriguez on 09-15-2024 Glucose [Mass/Vol] Glucose [Mass/volume ] in Serum or Plasma High 70-100 [facility] Comment on above: ADA recommended refe rence rangeRandom Glucose Reference Range is dependent on time and content of last meal. Glucose of more than 200 mg/dL in a nonstressed, ambulatory subject supports the diagnosis of Diabetes Mellitus. Glucose [Mass/Vol] 133 mg/dL High 70-100 [facility] Comment on above: ADA recommended refe rence rangeRandom Glucose Reference Range is dependent on time and content of last meal. Glucose of more than 200 mg/dL in a nonstressed, ambulatory subject supports the diagnosis of Diabetes Mellitus. Result Comment: [place] om Glucose Reference Range is dependent on time and content of last meal. Glucose of more than 200 mg/dL in a nonstressed, ambulatory subject supports the diagnosis of Diabetes Mellitus. ADA recommended reference range Performed By: #### B MP, CBC #### [facility] [address] Hematocrit Auto (Bld) [Volum e fraction]Ordered By: Bakari Rodriguez on 09-15-2024 Hematocrit (Bld) [Volume fraction] Hematocrit [Volume Fraction] of Blood by Automated count 34.0-46.4 [facility] Hematocrit [Volume Fraction] of Blood by Automated countOrdered By: Bakari Rodriguez on 09-15-2024 Hematocrit (Bld) [Volume fraction] 35.2 % Normal 34.0-46.4 [facility] Comment on above: Performed By: #### B MP, CBC #### [facility] [address] [place] [address] Hemoglobin [Mass/volume] in BloodOrdered By: Bakari Rodriguez on 09-15-2024 Hemoglobin (Bld) [Mass/Vol] Hemoglobin [Mass/volume] in Blood Low 11.8-15.4 [facility] Hemoglobin (Bld) [Mass/Vol] 11.2 g/dL Low 11.8-15.4 [facility] Comment on above: Performed By: #### B MP, CBC #### [facility] [address] Leukocytes [#/volume] correc rod for nucleated erythrocytes in Blood by Automated counOrdered By: Bakari Rodriguez on 09-15-2024 WBC corrected for nucl RBC Auto (Bld) [#/Vol] Leukocytes [#/volume] corrected for nucleated erythrocytes in Blood by Automated coun 3.8-11.6 [facility] WBC corrected for nucl RBC Auto (Bld) [#/Vol] 5.4 10*3/uL 3.8-11.6 [facility] Leukocytes [#/volume] in Blo od by Automated countOrdered By: Bakari Rodriguez on 09-15-2024 WBC (Bld) [#/Vol] 5.4 10*3/uL Normal 3.8-11.6 [facility] Comment on above: Performed By: #### B MP, CBC #### [facility] [address] Lymphocytes Auto (Bld) [#/Vo l]Ordered By: Bakari Rodriguez on 09-15-2024 Lymphocytes (Bld) [#/Vol] Lymphocytes [#/volume] in Blood by Automated count 1.00-4.8 [facility] Lymphocytes [#/volume] in Bl ood by Automated countOrdered By: Bakari Rodriguez on 09-15-2024 Lymphocytes (Bld) [#/Vol] 1.1 10*3/uL Normal 1.00-4.8 [facility] Comment on above: Performed By: #### B MP, CBC #### [place] [id number] [facility] Lymphocytes/100 WBC Auto (Bl d)Ordered By: Bakari Rodriguez on 09-15-2024 Lymphocytes/100 WBC (Bld) Lymphocytes/100 leukocytes in Blood by Automated count . [facility] Lymphocytes/100 leukocytes i n Blood by Automated countOrdered By: Bakari Rodriguez on 09-15-2024 Lymphocytes/100 WBC (Bld) 20.6 % Normal . [facility] Comment on above: Performed By: #### B MP, CBC #### [facility] [address] [place], [place] [id number] [facility] MCH Auto (RBC) [Entitic mass ]Ordered By: Bakari Rodriguez on 09-15-2024 MCH (RBC) [Entitic mass] MCH [Entitic mass] by Automated count 24.7-34.3 [facility] MCH [Entitic mass] by Automa rod countOrdered By: Bakari Rodriguez on 09-15-2024 MCH (RBC) [Entitic mass] 26.4 pg Normal 24.7-34.3 [facility] Comment on above: Performed By: #### B MP, CBC #### [facility] [address] MCHC Auto (RBC) [Mass/Vol]Or dered By: Bakari Rodriguez on 09-15-2024 MCHC (RBC) [Mass/Vol] MCHC [Mass/volume] by Automated count Low 32.0-35.0 [facility] MCHC (RBC) [Mass/Vol] 31.9 g/dL Low 32.0-35.0 [facility] MCV Auto (RBC) [Entitic vol] Ordered By: Bakari Rodriguez on 09-15-2024 MCV (RBC) [Entitic vol] MCV [Entitic volume] by Automated count 80-100 [facility] MCV [Entitic volume] by Auto mated countOrdered By: Bakari Rodriguez on 09-15-2024 MCV (RBC) [Entitic vol] 82.8 fL Normal 80-100 [facility] Comment on above: Performed By: #### B MP, CBC #### [facility] [address] Monocytes Auto (Bld) [#/Vol] Ordered By: Bakari Rodriguez on 09-15-2024 Monocytes (Bld) [#/Vol] Automated blood monocyte count 0.0-0.8 [facility] Monocytes [#/volume] in Bloo d by Automated countOrdered By: Bakari Rodriguez on 09-15-2024 Monocytes (Bld) [#/Vol] 0.6 10*3/uL Normal 0.0-0.8 [facility] Comment on above: Performed By: #### B MP, CBC #### [facility] [address] [place] [address] Monocytes/100 WBC Auto (Bld) Ordered By: Bakari Rodriguez on 09-15-2024 Monocytes/100 WBC (Bld) Automated monocyte % . [facility] Monocytes/100 leukocytes in Blood by Automated countOrdered By: Bakari Rodriguez on 09-15-2024 Monocytes/100 WBC (Bld) 11.5 % Normal . [facility] Comment on above: Performed By: #### B MP, CBC #### [facility] [address] Neutrophils Auto (Bld) [#/Vo l]Ordered By: Bakari Rodriguez on 09-15-2024 Neutrophils (Bld) [#/Vol] Neutrophils [#/volume] in Blood by Automated count 1.8-7.7 [facility] Neutrophils [#/volume] in Bl ood by Automated countOrdered By: Bakari Rodriguez on 09-15-2024 Neutrophils (Bld) [#/Vol] 3.5 10*3/uL Normal 1.8-7.7 [facility] Comment on above: Performed By: #### B MP, CBC #### [facility] [address] [place] [address] Neutrophils/100 WBC Auto (Bl d)Ordered By: Bakari Rodriguez on 09-15-2024 Neutrophils/100 WBC (Bld) Automated neutrophil % . [facility] Neutrophils/100 leukocytes i n Blood by Automated countOrdered By: Bakari Rodriguez on 09-15-2024 Neutrophils/100 WBC (Bld) 64.5 % Normal . [facility] Comment on above: Performed By: #### B MP, CBC #### [facility] [address] [place] [address] No Panel InformationOrdered By: Bakari Rodriguez on 09-15-2024 Estimated GFR (CKD-EPI) 49.689 mL/Min [facility] Creatinine Clearance (Chem N/A [facility] Nucleated erythrocytes [Pres ence] in Blood by Automated countOrdered By: Bakari Rodriguez on 09-15-2024 Nucleated RBC Auto Ql (Bld) Nucleated erythrocytes [Presence] in Blood by Automated count 0-0.5 [facility] Nucleated RBC Auto Ql (Bld) 0.0 /100{WBC} 0-0.5 [facility] Platelet mean volume Auto (B ld) [Entitic vol]Ordered By: Bakari Rodriguez on 09-15-2024 Platelet mean volume (Bld) [Entitic vol] Platelet mean volume [Entitic volume] in Blood by Automated count 6.3-10.7 [facility] Platelet mean volume [Entiti c volume] in Blood by Automated countOrdered By: Bakari Rodriguez on 09-15-2024 Platelet mean volume (Bld) [Entitic vol] 8.7 fL Normal 6.3-10.7 [facility] Comment on above: Performed By: #### B MP, CBC #### [address] Platelets Auto (Bld) [#/Vol] Ordered By: Bakari Rodriguez on 09-15-2024 Platelets (Bld) [#/Vol] Platelets [#/volume] in Blood by Automated count 150-450 [facility] Platelets [#/volume] in Bloo d by Automated countOrdered By: Bakari Rodriguez on 09-15-2024 Platelets (Bld) [#/Vol] 277 10*3/uL Normal 150-450 [facility] Comment on above: Performed By: #### B MP, CBC #### [address] Potassium [Moles/volume] in Serum or PlasmaOrdered By: Bakari Rodriguez on 09-15-2024 Potassium [Moles/Vol] Potassium [Moles/v olume] in Serum or Plasma 3.5-5.1 [facility] Potassium [Moles/Vol] 4.4 mmol/L Normal 3.5-5.1 [facility] Comment on above: Performed By: #### B MP, CBC #### [address] RBC Auto (Bld) [#/Vol]Ordere d By: Bakari Rodriguez on 09-15-2024 RBC (Bld) [#/Vol] Erythrocytes [#/volu me] in Blood by Automated count 3.60-5.00 [facility] Serum or plasma anion gap de terminationOrdered By: Bakari Rodriguez on 09-15-2024 Anion gap [Moles/Vol] Serum or plasma an ion gap determination 6.0-15.0 [facility] Anion gap [Moles/Vol] 10.8 mmol/L Normal 6.0-15.0 [facility] Comment on above: Performed By: #### B MP, CBC #### [facility] [address] Sodium [Moles/volume] in Ser um or PlasmaOrdered By: Bakari Rodriguez on 09-15-2024 Sodium [Moles/Vol] Sodium [Moles/volume ] in Serum or Plasma 136-145 [facility] Sodium [Moles/Vol] 137 mmol/L Normal 136-145 [facility] Comment on above: Performed By: #### B MP, CBC #### [facility] [address] Urea nitrogen [Mass/volume] in Serum or PlasmaOrdered By: Bakari Rodriguez on 09-15-2024 Urea nitrogen [Mass/Vol] Urea nitrogen [Mass/volume] in Serum or Plasma High 7-25 [facility] Urea nitrogen [Mass/Vol] 26 mg/dL High 7-25 [facility] Comment on above: Performed By: #### B MP, CBC #### [facility] [address] WBC Auto (Bld) [#/Vol]Ordere d By: Bakari Rodriguez on 09-15-2024 WBC (Bld) [#/Vol] Leukocytes [#/volume ] in Blood by Automated count 3.8-11.6 [facility] Erythrocyte distribution wid th Auto (RBC) [Ratio]on 08-21-2024 Erythrocyte distribution width (RBC) [Ratio] Erythrocyte distribution width [Ratio] by Automated count 11.0-15.0 [facility] Erythrocyte distribution width (RBC) [Ratio] 15.0 % 11.0-15.0 [facility] Estimated glomerular filtrat ion rate (GFR) non- Americanon 08-21-2024 GFR/1.73 sq M.predicted among non-blacks MDRD (S/P/Bld) [Vol rate/Area] Estimated glomerular filtration rate (GFR) non- Low >=60 mL/min/1.7 3m 2 [facility] GFR/1.73 sq M.predicted among non-blacks MDRD (S/P/Bld) [Vol rate/Area] 43 mL/min/{1.73_m2} Low >=60 mL/min/1.7 3m 2 [facility] CBC WITH PLATELET NO DI FFERENTIALon 08-21-2024 Erythrocyte distribution width (RBC) [Ratio] 15 % 11.0 - 15.0 % [facility] Hematocrit (Bld) [Volume fraction] 34.6 % Low 36.0 - 48.0 % [facility] Hemoglobin (Bld) [Mass/Vol] 10.4 g/dL Low 12.0 - 16.0 g/dL [facility] Interpretation and review of laboratory results Abnormal [facility] MCH (RBC) [Entitic mass] 26.5 pg Low 26.7 - 34.0 pg [facility] MCHC (RBC) [Mass/Vol] 30.1 g/dL 29.9 - 35.2 g/dL [facility] MCV (RBC) [Entitic vol] 88 fL 81.0 - 99.0 fL [facility] Platelet mean volume (Bld) [Entitic vol] 10.7 fL 9.5 - 13.5 fL [facility] TBH PLT [address] [facility] RBC 3.93 Low [facility] WBC 5.1 [facility] Hematocrit Auto (Bld) [Volum e fraction]on 08-21-2024 Hematocrit (Bld) [Volume fraction] Hematocrit [Volume Fraction] of Blood by Automated count Low 36.0-48.0 [facility] Hematocrit (Bld) [Volume fraction] 34.6 % Low 36.0-48.0 [facility] Hemoglobin [Mass/volume] in Bloodon 08-21-2024 Hemoglobin (Bld) [Mass/Vol] Hemoglobin [Mass/volume] in Blood Low 12.0-16.0 [facility] Hemoglobin (Bld) [Mass/Vol] 10.4 g/dL Low 12.0-16.0 [facility] Iron binding capacity [Mass/ volume] in Serum or Plasmaon 08-21-2024 Iron binding capacity [Mass/Vol] Iron binding capacity [Mass/volume] in Serum or Plasma 250.0-450. 0 [facility] Iron binding capacity [Mass/Vol] 436.0 ug/dL 250.0-450. 0 [facility] Iron saturation [Mass Fracti on] in Serum or Plasmaon 08-21-2024 Iron saturation [Mass fraction] Iron saturation [Mass Fraction] in Serum or Plasma [facility] Iron saturation [Mass fraction] 43.6 % [facility] Laboratory - Chemistry and C hemistry - challengeon 08-21-2024 Albumin [Mass/Vol] 3.6 g/dL 3.4-5.0 [facility] Calcium [Mass/Vol] 9.2 mg/dL 8.5-10.1 [facility] Chloride [Moles/Vol] 104 mmol/L 98-107 [facility] CO2 [Moles/Vol] 27.2 mmol/L 21.0-32.0 [facility] Cobalamin (Vitamin B12) [Mass/Vol] 496 pg/mL 232-1245 [facility] Comment on above: Performed at: [address] [id number] Director: Rakesh Grace PhD, Phone: [phone] Creatinine [Mass/Vol] 1.23 mg/dL High 0.55-1.02 [facility] Ferritin [Mass/Vol] 17.0 ng/mL 8.0-252.0 [facility] GFR/1.73 sq M.predicted MDRD (S/P/Bld) [Vol rate/Area] 52 mL/min/{1.73_m2} Low >=60 mL/min/1.7 3m 2 [facility] Glucose [Mass/Vol] 142 mg/dL High 74-106 [facility] Iron [Mass/Vol] 190.0 ug/dL High 50.0-170.0 [facility] Potassium [Moles/Vol] 3.6 mmol/L 3.5-5.1 [facility] Sodium [Moles/Vol] 141 mmol/L 136-145 [facility] Urate [Mass/Vol] 4.2 mg/dL 2.6-6.0 [facility] Urea nitrogen [Mass/Vol] 27.0 mg/dL High 7.0-18.0 [facility] Urea nitrogen/Creatinine [Mass ratio] 22.0 mg/mg [facility] Laboratory - Urinalysison Protein (U) [Mass/Vol] 20.5 mg/dL High <=11.9 [facility] Leukocytes [#/volume] correc rod for nucleated erythrocytes in Blood by Automated counon 08-21-2024 WBC corrected for nucl RBC Auto (Bld) [#/Vol] Leukocytes [#/volume] corrected for nucleated erythrocytes in Blood by Automated coun 4.0-11.0 [facility] WBC corrected for nucl RBC Auto (Bld) [#/Vol] 5.1 10 3/uL 4.0-11.0 [facility] MCH Auto (RBC) [Entitic mass ]on 08-21-2024 MCH (RBC) [Entitic mass] MCH [Entitic mass] by Automated count Low 26.7-34.0 [facility] MCH (RBC) [Entitic mass] 26.5 pg Low 26.7-34.0 [facility] MCHC Auto (RBC) [Mass/Vol]on 08-21-2024 MCHC (RBC) [Mass/Vol] MCHC [Mass/volume] by Automated count 29.9-35.2 [facility] MCHC (RBC) [Mass/Vol] 30.1 g/dL 29.9-35.2 [facility] MCV Auto (RBC) [Entitic vol] on 08-21-2024 MCV (RBC) [Entitic vol] MCV [Entitic volume] by Automated count 81.0-99.0 [facility] MCV (RBC) [Entitic vol] 88.0 fL 81.0-99.0 [facility] No Panel Informationon 08-21 25-Hydroxy Vitamin D Total 50.1 ng/mL [facility] Comment on above: <20 ng/mL Vit D defi cient20-<30 ng/mL Vit D [id number] ng/mL Vit D sufficient>100 ng/mL Potential Toxicity Folate 25.70 ng/mL 8.60-58.90 [facility] Parathyroid Hormone (Intact) 32 pg/mL 1565 [facility] Comment on above: Performed at: [address] [id number] Director: Rakesh Grace PhD, Phone: [phone] Phosphorus Level 3.4 mg/dL 2.6-4.7 [facility] Urine Random Creatinine 117.92 mg/dL 20.00-300. 00 [facility] Platelet mean volume Auto (B ld) [Entitic vol]on 08-21-2024 Platelet mean volume (Bld) [Entitic vol] Platelet mean volume [Entitic volume] in Blood by Automated count 9.5-13.5 [facility] Platelet mean volume (Bld) [Entitic vol] 10.7 fL 9.5-13.5 [facility] Platelets Auto (Bld) [#/Vol] on 08-21-2024 Platelets (Bld) [#/Vol] Platelets [#/volume] in Blood by Automated count 150-450 [facility] Platelets (Bld) [#/Vol] 338 10 3/uL 150-450 [facility] RBC Auto (Bld) [#/Vol]on RBC (Bld) [#/Vol] Erythrocytes [#/volu me] in Blood by Automated count Low 4.20-5.40 [facility] RBC (Bld) [#/Vol] 3.93 10 6/uL Low 4.20-5.40 [facility] Serum or plasma anion gap de terminationon 08-21-2024 Anion gap [Moles/Vol] Serum or plasma an ion gap determination [facility] Anion gap [Moles/Vol] 13.4 mmol/L [facility] Urine protein/creatinine rat ioon 08-21-2024 Protein/Creatinine (U) [Ratio] Urine protein/creatinine ratio [facility] Protein/Creatinine (U) [Ratio] 0.17 [facility] A1C with Estimated Average G luon 08-06-2024 Glucose [Mass/Vol] 126 mg/dL Normal [facility] Comment on above: Result Comment: PERF ORMED BY: [facility] [address] [place] [address] PATHOLOGIST SPECIMEN TRANSPORTER SUNIL OCAMPO M.D. Performed By: #### B MP, CBC #### [facility] [address] [place] [id number] [place] Albumin Levelon 08-06-2024 Albumin [Mass/Vol] 4.1 g/dL Normal 3.5-5.7 [facility] Comment on above: Performed By: #### B MP, CBC #### [facility] [address] [place] [address] [place] Albumin [Mass/volume] in Ser um or Plasma by Bromocresol green (BCG) dye binding methoOrdered By: Ghislaine Kirkpatrick on 08-06-2024 Albumin BCG dye [Mass/Vol] Albumin [Mass/volume] in Serum or Plasma by Bromocresol green (BCG) dye binding metho 3.5-5.7 [facility] Albumin BCG dye [Mass/Vol] 4.1 g/dL 3.5-5.7 [facility] Appearance of UrineOrdered B y: Ghislaine Kirkpatrick on 08-06-2024 Appearance (U) Urine appearance Abnormal [facility] Appearance (U) Cloudy Critically abnormal [facility] Comment on above: Order Comment: Reaso n for Exam: Chronic kidney disease, stage III (moderate);Hypertensive ch Name Collection Type:: Clean-Voided Midstream Performed By: #### G LULS #### Point of Care testing , Bacteria [Presence] in Urine by AutomatedOrdered By: Ghislaine Kirkpatrick on 08-06-2024 Bacteria Auto Ql (U) Bacteria [Presence] in Urine by Automated None Seen [facility] Bacteria Auto Ql (U) Rare [HPF] None Seen [facility] Bilirubin Test strip Ql (U)O rdered By: Ghislaine Kirkpatrick on 08-06-2024 Bilirubin Ql (U) Bilirubin.total [Presence] in Urine by Test strip Negative [facility] Bilirubin Ql (U) Negative Negative [facility] Blood estimated average gluc ose determination by estimation from glycated hemoglobinOrdered By: Bakari Rodriguez on 08-06-2024 Average glucose Estimated from glycated hemoglobin (Bld) [Mass/Vol] Glucose mean value [Mass/volume] in Blood Estimated from glycated hemoglobin [facility] Average glucose Estimated from glycated hemoglobin (Bld) [Mass/Vol] 126 mg/dL [facility] Calcium [Mass/volume] in Ser um or PlasmaOrdered By: Ghislaine Kirkpatrick on 08-06-2024 Calcium [Mass/Vol] Calcium [Mass/volume ] in Serum or Plasma 8.6-10.3 [facility] Calcium [Mass/Vol] 9.6 mg/dL Normal 8.6-10.3 [facility] Comment on above: Order Comment: Reaso n for Exam Chronic kidney disease, stage III (moderate);Hypertensive ch Reason for Exam: Chronic kidney disease, stage III (moderate);Hypertensive ch Performed By: #### B MP, CBC #### [facility] [address] Carbon dioxide, total [Moles /volume] in Serum or PlasmaOrdered By: Ghislaine Kirkpatrick on 08-06-2024 CO2 [Moles/Vol] Carbon dioxide, tota l [Moles/volume] in Serum or Plasma 21.0-31.0 [facility] CO2 [Moles/Vol] 26.3 mmol/L Normal 21.0-31.0 [facility] Comment on above: Order Comment: Reaso n for Exam Chronic kidney disease, stage III (moderate);Hypertensive ch Reason for Exam: Chronic kidney disease, stage III (moderate);Hypertensive ch Performed By: #### B MP, CBC #### [facility] [address] [place] [address] [place] Casts [Presence] in Urine by AutomatedOrdered By: Ghislaine Kirkpatrick on 08-06-2024 Casts Auto Ql (U) Casts [Presence] in Urine by Automated High None Seen [facility] Casts Auto Ql (U) 3-4 [LPF] High None Seen [facility] Chloride [Moles/volume] in S rivka or PlasmaOrdered By: Ghislaine Kirkpatrick on 08-06-2024 Chloride [Moles/Vol] Chloride [Moles/vol ume] in Serum or Plasma 98-107 [facility] Chloride [Moles/Vol] 107 mmol/L Normal 98-107 [facility] Comment on above: Order Comment: Reaso n for Exam Chronic kidney disease, stage III (moderate);Hypertensive ch Reason for Exam: Chronic kidney disease, stage III (moderate);Hypertensive ch Performed By: #### B MP, CBC #### [facility] [address] Color Auto (U)Ordered By: Ab vidhi Kirkpatrick on 08-06-2024 Color (U) Color of Urine by Auto Yellow [facility] Color of Urine by AutoOrdere d By: Ghislaine Kirkpatrick on 08-06-2024 Color (U) Yellow Normal Yellow [facility] Comment on above: Order Comment: Reaso n for Exam: Chronic kidney disease, stage III (moderate);Hypertensive ch Name Collection Type:: Clean-Voided Midstream Performed By: #### G LUYOUNG #### Point of Care testing , Cotinine [Mass/volume] in Se rum or PlasmaOrdered By: Bakari Rodriguez on 08-06-2024 Cotinine [Mass/Vol] Cotinine [Mass/volum e] in Serum or Plasma . [facility] Comment on above: This test was develo ped and its performance characteristicsdetermined by Victoria Plumb. It has not been cleared orapproved by the Food and Drug Administration.Cotinine levels greater than 20.0 are consistent with theuse of tobacco or tobacco cessation products.Performed at: [facility] [address] [id number] Director: Vivek Moody MD, Phone: [phone] Cotinine [Mass/Vol] <1.0 ng/mL . [facility] Comment on above: This test was develo ped and its performance characteristicsdetermined by Victoria Plumb. It has not been cleared orapproved by the Food and Drug Administration.Cotinine levels greater than 20.0 are consistent with theuse of tobacco or tobacco cessation products.Performed at: [facility] [address] [id number] Director: Vivek Moody MD, Phone: [phone] Creatinine [Mass/volume] in Serum or PlasmaOrdered By: Ghislaine Kirkpatrick on 08-06-2024 Creatinine [Mass/Vol] Creatinine [Mass/v olume] in Serum or Plasma High 0.60-1.20 [facility] Creatinine [Mass/Vol] 1.35 mg/dL High 0.60-1.20 [facility] Comment on above: Order Comment: Reaso n for Exam Chronic kidney disease, stage III (moderate);Hypertensive ch Reason for Exam: Chronic kidney disease, stage III (moderate);Hypertensive ch Performed By: #### B MP, CBC #### [facility] [address] Creatinine [Mass/volume] in UrineOrdered By: Ghislaine Kirkpatrick on 08-06-2024 Creatinine (U) [Mass/Vol] Creatinine [Mass/volume] in Urine [facility] Comment on above: No reference range e stablished Creatinine (U) [Mass/Vol] 290.00 mg/dL [facility] Comment on above: No reference range e stablished Crystals [Presence] in Urine by AutomatedOrdered By: Ghislaine Kirkpatrick on 08-06-2024 Crystals Auto Ql (U) Crystals [Presence] in Urine by Automated [facility] Crystals Auto Ql (U) 2+ [HPF] [facility] Dipstick and Microscopicon 0 08-06-2024 Bacteria,Urine Rare Normal None Seen [facility] Comment on above: Order Comment: Reaso n for Exam: Chronic kidney disease, stage III (moderate);Hypertensive ch Name Collection Type:: Clean-Voided Midstream Performed By: #### G LULS #### Point of Care testing , Bilirubin,Urine Negative Normal Negative [facility] Comment on above: Order Comment: Reaso n for Exam: Chronic kidney disease, stage III (moderate);Hypertensive ch Name Collection Type:: Clean-Voided Midstream Performed By: #### G LULS #### Point of Care testing , Glucose Ql (U) Normal Normal Normal [facility] Comment on above: Order Comment: Reaso n for Exam: Chronic kidney disease, stage III (moderate);Hypertensive ch Name Collection Type:: Clean-Voided Midstream Performed By: #### G LULS #### Point of Care testing , Hyaline Casts,Urine 0-8 Normal 0-[address] [facility] Comment on above: Order Comment: Reaso n for Exam: Chronic kidney disease, stage III (moderate);Hypertensive ch Name Collection Type:: Clean-Voided Midstream Performed By: #### G LULS #### Point of Care testing , Mucus,Urine 1+ Critically abnormal [facility] Comment on above: Order Comment: Reaso n for Exam: Chronic kidney disease, stage III (moderate);Hypertensive ch Name Collection Type:: Clean-Voided Midstream Result Comment: PERF ORMED BY: [facility] [address] PATHOLOGIST SPECIMEN TRANSPORTER SUNIL OCAMPO M.D. Performed By: #### G LULS #### Point of Care testing , Nitrite,Urine Negative Normal Negative [facility] Comment on above: Order Comment: Reaso n for Exam: Chronic kidney disease, stage III (moderate);Hypertensive ch Name Collection Type:: Clean-Voided Midstream Performed By: #### G LULS #### Point of Care testing , Occult Blood,Urine Negative Normal Negative [facility] Comment on above: Order Comment: Reaso n for Exam: Chronic kidney disease, stage III (moderate);Hypertensive ch Name Collection Type:: Clean-Voided Midstream Performed By: #### G LULS #### Point of Care testing , Othe Crystals,Urine 2+ Normal [facility] Comment on above: Order Comment: Reaso n for Exam: Chronic kidney disease, stage III (moderate);Hypertensive ch Name Collection Type:: Clean-Voided Midstream Performed By: #### G LULS #### Point of Care testing , Other Casts,Urine 3-4 High None Seen [facility] Comment on above: Order Comment: Reaso n for Exam: Chronic kidney disease, stage III (moderate);Hypertensive ch Name Collection Type:: Clean-Voided Midstream Performed By: #### G LULS #### Point of Care testing , RBC,Urine 10-19 High 0-4 [facility] Comment on above: Order Comment: Reaso n for Exam: Chronic kidney disease, stage III (moderate);Hypertensive ch Name Collection Type:: Clean-Voided Midstream Performed By: #### G LULS #### Point of Care testing , Specificy [place],Urine 1.032 High 1.001-1.03 0 [facility] Comment on above: Order Comment: Reaso n for Exam: Chronic kidney disease, stage III (moderate);Hypertensive ch Name Collection Type:: Clean-Voided Midstream Performed By: #### G LULS #### Point of Care testing , Squamous Epithelial Cell,Urine 3-4 High 0-2 [facility] Comment on above: Order Comment: Reaso n for Exam: Chronic kidney disease, stage III (moderate);Hypertensive ch Name Collection Type:: Clean-Voided Midstream Performed By: #### G LULS #### Point of Care testing , Urobilinogen,Urine 2 mg/dL High Normal [facility] Comment on above: Order Comment: Reaso n for Exam: Chronic kidney disease, stage III (moderate);Hypertensive ch Name Collection Type:: Clean-Voided Midstream Performed By: #### G LULS #### Point of Care testing , WBC,Urine 10-19 High 0-4 [facility] Comment on above: Order Comment: Reaso n for Exam: Chronic kidney disease, stage III (moderate);Hypertensive ch Name Collection Type:: Clean-Voided Midstream Performed By: #### G LULS #### Point of Care testing , Epithelial cells.squamous [# /area] in Urine sediment by Automated countOrdered By: Ghislaine Ada on 08-06-2024 Epithelial cells.squamous Auto (Urine sed) [#/Area] Epithelial cells.squamous [#/area] in Urine sediment by Automated count High 0-2 [facility] Epithelial cells.squamous Auto (Urine sed) [#/Area] 3-4 [HPF] High 0-2 [facility] Erythrocyte distribution wid th Auto (RBC) [Ratio]Ordered By: Ghislaine Ada on 08-06-2024 Erythrocyte distribution width (RBC) [Ratio] Erythrocyte distribution width [Ratio] by Automated count High 11.9-15.3 [facility] Erythrocyte distribution wid th [Ratio] by Automated countOrdered By: Ghislaine Ada on 08-06-2024 Erythrocyte distribution width (RBC) [Ratio] 15.7 % High 11.9-15.3 [facility] Comment on above: Order Comment: Reaso n for Exam Chronic kidney disease, stage III (moderate);Hypertensive ch Performed By: #### C BCNO #### [facility] [address] [place] [id number] [place] Erythrocytes [#/area] in Uri ne sediment by Automated countOrdered By: Ghislaine Kirkpatrick on 08-06-2024 RBC Auto (Urine sed) [#/Area] Erythrocytes [#/area] in Urine sediment by Automated count High 0-4 [facility] RBC Auto (Urine sed) [#/Area] 10-19 [HPF] High 0-4 [facility] Erythrocytes [#/volume] in B lood by Automated countOrdered By: Ghislaine Kirkpatrick on 08-06-2024 RBC (Bld) [#/Vol] 3.76 10*6/uL Normal 3.60-5.00 [facility] Comment on above: Order Comment: Reaso n for Exam Chronic kidney disease, stage III (moderate);Hypertensive ch Performed By: #### C BCNO #### [facility] [address] [place] [id number] [facility] Glucose [Mass/volume] in Ser um or PlasmaOrdered By: Ghislaine Kirkpatrick on 08-06-2024 Glucose [Mass/Vol] Glucose [Mass/volume ] in Serum or Plasma High 70-100 [facility] Comment on above: ADA recommended refe rence rangeRandom Glucose Reference Range is dependent on time and content of last meal. Glucose of more than 200 mg/dL in a nonstressed, ambulatory subject supports the diagnosis of Diabetes Mellitus. Glucose [Mass/Vol] 137 mg/dL High 70-100 [facility] Comment on above: ADA recommended refe rence rangeRandom Glucose Reference Range is dependent on time and content of last meal. Glucose of more than 200 mg/dL in a nonstressed, ambulatory subject supports the diagnosis of Diabetes Mellitus. Order Comment: Reaso n for Exam Chronic kidney disease, stage III (moderate);Hypertensive ch Reason for Exam: Chronic kidney disease, stage III (moderate);Hypertensive ch Result Comment: [place] Glucose Reference Range is dependent on time and content of last meal. Glucose of more than 200 mg/dL in a nonstressed, ambulatory subject supports the diagnosis of Diabetes Mellitus. ADA recommended reference range Performed By: #### B MP, CBC #### [facility] [address] [place] [address] [place] Glucose [Mass/volume] in Uri ne by Test stripOrdered By: Ghislaine Kirkpatrick on 08-06-2024 Glucose Test strip (U) [Mass/Vol] Glucose [Mass/volume] in Urine by Test strip Normal [facility] Glucose Test strip (U) [Mass/Vol] Normal mg/dL Normal [facility] Hematocrit Auto (Bld) [Volum e fraction]Ordered By: Ghislaine Kirkpatrick on 08-06-2024 Hematocrit (Bld) [Volume fraction] Hematocrit [Volume Fraction] of Blood by Automated count Low 34.0-46.4 [facility] Hematocrit [Volume Fraction] of Blood by Automated countOrdered By: Ghislaine Kirkpatrick on 08-06-2024 Hematocrit (Bld) [Volume fraction] 31.8 % Low 34.0-46.4 [facility] Comment on above: Order Comment: Reaso n for Exam Chronic kidney disease, stage III (moderate);Hypertensive ch Performed By: #### C BCNO #### [facility] [address] [place] [id number] [facility] Hemoglobin A1c/Hemoglobin.to bev in BloodOrdered By: Bakari Rodriguez on 08-06-2024 HbA1c (Bld) [Mass fraction] Hemoglobin A1c percentage High 4.3-5.6 [facility] Comment on above: Increased risk for d iabetes: 5.7 - 6.4diabetes: >6.4glycemic control for adults with diabetes: <7.0 HbA1c (Bld) [Mass fraction] 6.0 % High 4.3-5.6 [facility] Comment on above: Increased risk for d iabetes: 5.7 - 6.4diabetes: >6.4glycemic control for adults with diabetes: <7.0 Result Comment: Incr eased risk for diabetes: 5.7 - 6.4 diabetes: >6.4 glycemic control for adults with diabetes: <7.0 Performed By: #### B MP, CBC #### [facility] [address] [place] [address] Hemoglobin Test strip Ql (U) Ordered By: Ghislaine Kirkpatrick on 08-06-2024 Hemoglobin Ql (U) Hemoglobin [Presence ] in Urine by Test strip Negative [facility] Hemoglobin Ql (U) Negative Negative [facility] Hemoglobin [Mass/volume] in BloodOrdered By: Ghislaine Kirkpatrick on 08-06-2024 Hemoglobin (Bld) [Mass/Vol] Hemoglobin [Mass/volume] in Blood Low 11.8-15.4 [facility] Hemoglobin (Bld) [Mass/Vol] 10.3 g/dL Low 11.8-15.4 [facility] Comment on above: Order Comment: Reaso n for Exam Chronic kidney disease, stage III (moderate);Hypertensive ch Performed By: #### C BCNO #### [address] Hemogram CBC Without Diffon 08-06-2024 Mean Corpuscular HGB Conc 32.3 g/dL Normal 32.0-35.0 [facility] Comment on above: Order Comment: Reaso n for Exam Chronic kidney disease, stage III (moderate);Hypertensive ch Performed By: #### C BCNO #### [address] WBC (Bld) [#/Vol] 5.0 10*3/uL Normal 3.8-11.6 [facility] Comment on above: Order Comment: Reaso n for Exam Chronic kidney disease, stage III (moderate);Hypertensive ch Performed By: #### C BCNO #### [address] Hyaline casts [#/area] in Ur ine sediment by Automated countOrdered By: Ghislaine Kirkpatrick on 08-06-2024 Hyaline casts Auto (Urine sed) [#/Area] Hyaline casts [#/area] in Urine sediment by Automated count 0-8 [facility] Hyaline casts Auto (Urine sed) [#/Area] 0-8 [LPF] 0-8 [facility] Ketones Test strip Ql (U)Ord ered By: Ghislaine Kirkpatrick on 08-06-2024 Ketones Ql (U) Ketones [Presence] i n Urine by Test strip High Negative [facility] Ketones [Presence] in Urine by Test stripOrdered By: Ghislaine Kirkpatrick on 08-06-2024 Ketones Ql (U) Trace High Negative [facility] Comment on above: Order Comment: Reaso n for Exam: Chronic kidney disease, stage III (moderate);Hypertensive ch Name Collection Type:: Clean-Voided Midstream Performed By: #### G LULS #### Point of Care testing , Leukocyte esterase [Presence ] in Urine by Test stripOrdered By: Ghislaine Kirkpatrick on 08-06-2024 Leukocyte esterase Test strip Ql (U) Leukocyte esterase [Presence] in Urine by Test strip High Negative [facility] Leukocyte esterase Test strip Ql (U) 3+ High Negative [facility] Comment on above: Order Comment: Reaso n for Exam: Chronic kidney disease, stage III (moderate);Hypertensive ch Name Collection Type:: Clean-Voided Midstream Performed By: #### G LULS #### Point of Care testing , Leukocytes [#/area] in Urine sediment by Automated countOrdered By: Ghislaine Kirkpatrick on 08-06-2024 WBC Auto (Urine sed) [#/Area] Leukocytes [#/area] in Urine sediment by Automated count High 0-4 [facility] WBC Auto (Urine sed) [#/Area] 10-19 [HPF] High 0-4 [facility] Leukocytes [#/volume] correc rod for nucleated erythrocytes in Blood by Automated counOrdered By: Ghislaine Kirkpatrick on 08-06-2024 WBC corrected for nucl RBC Auto (Bld) [#/Vol] Leukocytes [#/volume] corrected for nucleated erythrocytes in Blood by Automated coun 3.8-11.6 [facility] WBC corrected for nucl RBC Auto (Bld) [#/Vol] 5.0 10*3/uL 3.8-11.6 [facility] MCH Auto (RBC) [Entitic mass ]Ordered By: Ghislaine Kirkpatrick on 08-06-2024 MCH (RBC) [Entitic mass] MCH [Entitic mass] by Automated count 24.7-34.3 [facility] MCH [Entitic mass] by Automa rod countOrdered By: Ghislaine Kirkpatrick on 08-06-2024 MCH (RBC) [Entitic mass] 27.4 pg Normal 24.7-34.3 [facility] Comment on above: Order Comment: Reaso n for Exam Chronic kidney disease, stage III (moderate);Hypertensive ch Performed By: #### C BCNO #### [facility] [address] MCHC Auto (RBC) [Mass/Vol]Or dered By: Ghislaine Kirkpatrick on 08-06-2024 MCHC (RBC) [Mass/Vol] MCHC [Mass/volume] by Automated count 32.0-35.0 [facility] MCHC (RBC) [Mass/Vol] 32.3 g/dL 32.0-35.0 [facility] MCV Auto (RBC) [Entitic vol] Ordered By: Ghislaine Kirkpatrick on 08-06-2024 MCV (RBC) [Entitic vol] MCV [Entitic volume] by Automated count 80-100 [facility] MCV [Entitic volume] by Auto mated countOrdered By: Ghislaine Kirkpatrick on 08-06-2024 MCV (RBC) [Entitic vol] 84.6 fL Normal 80-100 [facility] Comment on above: Order Comment: Reaso n for Exam Chronic kidney disease, stage III (moderate);Hypertensive ch Performed By: #### C BCNO #### [address] Magnesium [Mass/volume] in S rivka or PlasmaOrdered By: Ghislaine Kirkpatrick on 08-06-2024 Magnesium [Mass/Vol] Magnesium [Mass/vol ume] in Serum or Plasma 1.9-2.7 [facility] Magnesium [Mass/Vol] 2.1 mg/dL Normal 1.9-2.7 [facility] Comment on above: Order Comment: Reaso n for Exam Chronic kidney disease, stage III (moderate);Hypertensive ch Reason for Exam: Chronic kidney disease, stage III (moderate);Hypertensive ch Performed By: #### B MP, CBC #### [address] Mucus [Presence] in Urine by AutomatedOrdered By: Ghislaine Kirkpatrick on 08-06-2024 Mucus Auto Ql (U) Mucus [Presence] in Urine by Automated Abnormal [facility] Mucus Auto Ql (U) 1+ [LPF] Abnormal [facility] Nicotine [Mass/volume] in Se rum or PlasmaOrdered By: Bakari Rodriguez on 08-06-2024 Nicotine [Mass/Vol] Nicotine [Mass/volum e] in Serum or Plasma . [facility] Comment on above: This test was develo ped and its performance characteristicsdetermined by [facility]. It has not been cleared orapproved by the Food and Drug Administration.Nicotine levels greater than 2.0 are consistent with theuse of tobacco or tobacco cessation products. Nicotine [Mass/Vol] <1.0 ng/mL . [facility] Comment on above: This test was develo ped and its performance characteristicsdetermined by [facility]. It has not been cleared orapproved by the Food and Drug Administration.Nicotine levels greater than 2.0 are consistent with theuse of tobacco or tobacco cessation products. Nicotine/Cotinine Bloodon Cotinine, Blood <1.0 Normal . [facility] Comment on above: Result Comment: This test was developed and its performance characteristics determined by [employer]. It has not been cleared or approved by the Food and Drug Administration. Cotinine levels greater than 20.0 are consistent with the use of tobacco or tobacco cessation products. Performed at: [address] [id number] Sheriffs Officer: Vivek Moody MD, Phone: [phone] PERFORMED BY: [place] [address] PATHOLOGIST SPECIMEN TRANSPORTER SUNIL OCAMPO M.D. Performed By: #### B MP, CBC #### [address] Nicotine, Blood <1.0 Normal . [facility] Comment on above: Result Comment: This test was developed and its performance characteristics determined by [facility]. It has not been cleared or approved by the Food and Drug Administration. Nicotine levels greater than 2.0 are consistent with the use of tobacco or tobacco cessation products. Performed By: #### B MP, CBC #### [facility] [address] Nitrite Test strip Ql (U)Ord ered By: Ghislaine Kirkpatrick on 08-06-2024 Nitrite Ql (U) Nitrite [Presence] i n Urine by Test strip Negative [facility] Nitrite Ql (U) Negative Negative [facility] No Panel InformationOrdered By: Ghislaine Kirkpatrcik on 08-06-2024 Estimated GFR (CKD-EPI) 42.278 mL/Min [facility] Creatinine Clearance (Chem N/A [facility] Parathyrin.intact [Mass/volu me] in Serum or PlasmaOrdered By: Ghislaine Kirkpatrick on 08-06-2024 Parathyrin.intact [Mass/Vol] Parathyrin.intact [Mass/volume] in Serum or Plasma [facility] Parathyrin.intact [Mass/Vol] 49.7 pg/mL [facility] Parathyroid Hormone Intacton 08-06-2024 Parathyroid Hormone Intact 49.7 pg/mL Normal [facility] Comment on above: Order Comment: Reaso n for Exam Chronic kidney disease, stage III (moderate);Hypertensive ch Result Comment: PERF ORMED BY: [place] [address] PATHOLOGIST SPECIMEN TRANSPORTER SUNIL OCAMPO M.D. Performed By: #### G LULS #### Point of Care testing , Phosphate [Mass/volume] in S rivka or PlasmaOrdered By: Ghislaine Kirkpatrick on 08-06-2024 Phosphate [Mass/Vol] Phosphate [Mass/vol ume] in Serum or Plasma 2.5-4.5 [facility] Phosphate [Mass/Vol] 3.9 mg/dL Normal 2.5-4.5 [facility] Comment on above: Order Comment: Reaso n for Exam Chronic kidney disease, stage III (moderate);Hypertensive ch Reason for Exam: Chronic kidney disease, stage III (moderate);Hypertensive ch Performed By: #### B MP, CBC #### [facility] [address] [place] [address] Platelet mean volume Auto (B ld) [Entitic vol]Ordered By: Ghislaine Ada on 08-06-2024 Platelet mean volume (Bld) [Entitic vol] Platelet mean volume [Entitic volume] in Blood by Automated count 6.3-10.7 [facility] Platelet mean volume [Entiti c volume] in Blood by Automated countOrdered By: Ghislaine Ada on 08-06-2024 Platelet mean volume (Bld) [Entitic vol] 9.1 fL Normal 6.3-10.7 [facility] Comment on above: Order Comment: Reaso n for Exam Chronic kidney disease, stage III (moderate);Hypertensive ch Result Comment: PERF ORMED BY: [place] [address] PATHOLOGIST SPECIMEN TRANSPORTER SUNIL OCAMPO M.D. Performed By: #### C BCNO #### [facility] [address] [place] [address] Platelets Auto (Bld) [#/Vol] Ordered By: Ghislaine Ada on 08-06-2024 Platelets (Bld) [#/Vol] Platelets [#/volume] in Blood by Automated count 150-450 [facility] Platelets [#/volume] in Bloo d by Automated countOrdered By: Ghislaine Ada on 08-06-2024 Platelets (Bld) [#/Vol] 325 10*3/uL Normal 150-450 [facility] Comment on above: Order Comment: Reaso n for Exam Chronic kidney disease, stage III (moderate);Hypertensive ch Performed By: #### C BCNO #### [facility] [address] [place] [address] Potassium [Moles/volume] in Serum or PlasmaOrdered By: Ghislaine Ada on 08-06-2024 Potassium [Moles/Vol] Potassium [Moles/v olume] in Serum or Plasma 3.5-5.1 [facility] Potassium [Moles/Vol] 3.9 mmol/L Normal 3.5-5.1 [facility] Comment on above: Order Comment: Reaso n for Exam Chronic kidney disease, stage III (moderate);Hypertensive ch Reason for Exam: Chronic kidney disease, stage III (moderate);Hypertensive ch Performed By: #### B MP, CBC #### [address] Protein Creat Ratio Ur Rando mon 08-06-2024 Creatinine, Urine (Random) 290.00 mg/dL Normal [facility] Comment on above: Order Comment: Reaso n for Exam: Chronic kidney disease, stage III (moderate);Hypertensive ch Result Comment: No r eference range established Performed By: #### G LULS #### Point of Care testing , Urine Protein/Creatinine Ratio 97 mg/g{Cre} Normal 0-200 [facility] Comment on above: Order Comment: Reaso n for Exam: Chronic kidney disease, stage III (moderate);Hypertensive ch Result Comment: PERF ORMED BY: [place] [address] PATHOLOGIST SPECIMEN TRANSPORTER SUNIL OCAMPO M.D. Performed By: #### G LULS #### Point of Care testing , Protein Test strip (U) [Mass /Vol]Ordered By: Ghislaine Kirkpatrick on 08-06-2024 Protein (U) [Mass/Vol] Protein [Mass/volume] in Urine by Test strip High Negative [facility] Protein [Mass/volume] in Uri neOrdered By: Ghislaine Ada on 08-06-2024 Protein (U) [Mass/Vol] Protein [Mass/volume] in Urine High 0-9 [facility] Protein (U) [Mass/Vol] 28 mg/dL High 0-9 [facility] Comment on above: Order Comment: Reaso n for Exam: Chronic kidney disease, stage III (moderate);Hypertensive ch Performed By: #### G LULS #### Point of Care testing , Protein [Mass/volume] in Uri ne by Test stripOrdered By: Ghislaine Ada on 08-06-2024 Protein (U) [Mass/Vol] 20 mg/dL High Negative [facility] Comment on above: Order Comment: Reaso n for Exam: Chronic kidney disease, stage III (moderate);Hypertensive ch Name Collection Type:: Clean-Voided Midstream Performed By: #### G EVA #### Point of Care testing , RBC Auto (Bld) [#/Vol]Ordere d By: Ghislaine Kirkpatrick on 08-06-2024 RBC (Bld) [#/Vol] Erythrocytes [#/volu me] in Blood by Automated count 3.60-5.00 [facility] Renal Function Panelon 08-06 Albumin [Mass/Vol] 4.1 g/dL Normal 3.5-5.7 [facility] Comment on above: Order Comment: Reaso n for Exam Chronic kidney disease, stage III (moderate);Hypertensive ch Reason for Exam: Chronic kidney disease, stage III (moderate);Hypertensive ch Performed By: #### B MP, CBC #### [facility] [address] [place] [address] Estimated GFR 42.278 mL/Min Normal [facility] Comment on above: Order Comment: Reaso n for Exam Chronic kidney disease, stage III (moderate);Hypertensive ch Reason for Exam: Chronic kidney disease, stage III (moderate);Hypertensive ch Performed By: #### B MP, CBC #### [facility] [address] [place] [address] Serum or plasma anion gap de terminationOrdered By: Ghislaine Kirkpatrick on 08-06-2024 Anion gap [Moles/Vol] Serum or plasma an ion gap determination 6.0-15.0 [facility] Anion gap [Moles/Vol] 10.6 mmol/L Normal 6.0-15.0 [facility] Comment on above: Order Comment: Reaso n for Exam Chronic kidney disease, stage III (moderate);Hypertensive ch Reason for Exam: Chronic kidney disease, stage III (moderate);Hypertensive ch Performed By: #### B MP, CBC #### [facility] [address] [place] [address] Sodium [Moles/volume] in Ser um or PlasmaOrdered By: Ghislaine Kirkpatrick on 08-06-2024 Sodium [Moles/Vol] Sodium [Moles/volume ] in Serum or Plasma 136-145 [facility] Sodium [Moles/Vol] 140 mmol/L Normal 136-145 [facility] Comment on above: Order Comment: Reaso n for Exam Chronic kidney disease, stage III (moderate);Hypertensive ch Reason for Exam: Chronic kidney disease, stage III (moderate);Hypertensive ch Performed By: #### B MP, CBC #### [facility] [address] Specific gravity Test strip (U) [Rel density]Ordered By: Ghislaine Kirkpatrick on 08-06-2024 Specific gravity (U) [Rel density] Specific gravity of Urine by Test strip High 1.001-1.03 0 [facility] Specific gravity (U) [Rel density] 1.032 High 1.001-1.03 0 [facility] Urate [Mass/volume] in Serum or PlasmaOrdered By: Ghislaine Kirkpatrick on 08-06-2024 Urate [Mass/Vol] Urate [Mass/volume] in Serum or Plasma 2.3-6.6 [facility] Urate [Mass/Vol] 4.7 mg/dL Normal 2.3-6.6 [facility] Comment on above: Order Comment: Reaso n for Exam Chronic kidney disease, stage III (moderate);Hypertensive ch Reason for Exam: Chronic kidney disease, stage III (moderate);Hypertensive ch Result Comment: PERF ORMED BY: [place] [address] PATHOLOGIST SPECIMEN TRANSPORTER SUNIL OCAMPO M.D. Performed By: #### B MP, CBC #### [facility] [address] Urea nitrogen [Mass/volume] in Serum or PlasmaOrdered By: Ghislaine Kirkpatrick on 08-06-2024 Urea nitrogen [Mass/Vol] Urea nitrogen [Mass/volume] in Serum or Plasma High 7-25 [facility] Urea nitrogen [Mass/Vol] 27 mg/dL High - [facility] Comment on above: Order Comment: Reaso n for Exam Chronic kidney disease, stage III (moderate);Hypertensive ch Reason for Exam: Chronic kidney disease, stage III (moderate);Hypertensive ch Performed By: #### B MP, CBC #### [facility] [address] [place] [id number] [facility] Urine Cultureon 08-06-2024 Bacteria identified Cx Nom (U) >100,000 colonies/ml mixed bacterial skin contaminants including mixed gram negative bacilli - 2 Days PERFORMED BY: [facility] [address] [place] [id number] PATHOLOGIST SPECIMEN TRANSPORTER SUNIL OCAMPO M.D. Normal [facility] Comment on above: Performed By: #### G LULS #### Point of Care testing , Urine cultureOrdered By: Cheryl ul Ada on 08-06-2024 Bacteria identified Cx Nom (U) Urine culture [facility] Bacteria identified Cx Nom (U) bacilli - 2 Days [facility] Urine protein/creatinine rat ioOrdered By: Ghislaine Ada on 08-06-2024 Protein/Creatinine (U) [Ratio] Urine protein/creatinine ratio 0-200 [facility] Protein/Creatinine (U) [Ratio] 97 mg/g{Cre} 0-200 [facility] Urobilinogen Test strip (U) [Mass/Vol]Ordered By: Ghislaine Ada on 08-06-2024 Urobilinogen (U) [Mass/Vol] Urobilinogen [Mass/volume] in Urine by Test strip High Normal [facility] Urobilinogen (U) [Mass/Vol] 2 mg/dL High Normal [facility] Vitamin D 25 Hydroxy Totalon 08-06-2024 Vitamin D 25 Hydroxy Total 43.2 ng/mL Normal 30-100 [facility] Comment on above: Result Comment: QUINTIN MIN D STATUS 25([place])VITAMIN D RANGE (ng/mL) Deficient <20 Insufficient 20 to <30 Sufficient 30 to 100 Reference: Triston MF,Tori NC, Diann SEGOVIA, et al. Evaluation,treatment, and prevention of vitamin D deficiency; an Endocrine Society clinical practice guideline. JCEM. 2010; 96(7):1911-30. PERFORMED BY: [facility] [address] [place] [address] PATHOLOGIST SPECIMEN TRANSPORTER SUNIL OCAMPO M.D. Performed By: #### B MP, CBC #### [facility] [address] Vitamin D+Metabolites [Mass/ volume] in Serum or PlasmaOrdered By: Bakari Rodriguez on 08-06-2024 Vitamin D+Metabolites [Mass/Vol] Vitamin D+Metabolites [Mass/volume] in Serum or Plasma 30-100 [facility] Comment on above: VITAMIN D STATUS 25( [place])VITAMIN D RANGE (ng/mL) Deficient <20 Insufficient 20 to <30Sufficient 30 to 100Reference: Tori Bucio, Diann SEGOVIA, et al. Evaluation,treatment, and prevention of vitamin D deficiency; an Endocrine Society clinical practice guideline. JCEM. 2010; 96(7):19105-08. Vitamin D+Metabolites [Mass/Vol] 43.2 ng/mL 30-100 [facility] Comment on above: VITAMIN D STATUS 25( [place])VITAMIN D RANGE (ng/mL) Deficient <20 Insufficient 20 to <30Sufficient 30 to 100Reference: Tori Bucio, Diann SEGOVIA, et al. Evaluation,treatment, and prevention of vitamin D deficiency; an Endocrine Society clinical practice guideline. JCEM. 2010; 96(7):191-. X-ray reportOrdered By: Taz Dixon on 08-06-2024 Study report [facility] [address] [place] [address] XRay Report Signed Patient: Doug Courtney MR#: [id number] : 1955 Acct:[id number] Age/Sex: 68 / F ADM Date: 5 Loc: [facility] [place] Room: Type: [facility] Attending Dr: Bakari Rodriguez II, MD Copies to: Bakari Rodriguez MD~ Ordering Provider: Bakari Rodriguez MD Date of Service: 08/06/24 XR/XR hip LT min 2V(w/wo pelvis)*: M25.552 - Pain in left hip ([id number]) XR/XR knee LT 4V*: PAIN LEFT HIP [...] Jr., D.OBerry 08/06/2024 4:48 PM Dictation Location: [place] [address] Transcribed By: [facility] 08/06/241647 Dictated By: Fernie Dixon Jr, DO 08/06/241644 Signed By: 08/06/241647 [facility] XR knee LT 4V*on 08-06-2024 XR knee LT 4V* [facility] [address] [place] [address] XRay Report Signed Patient: Doug Courtney MR#: [id number] : 1955 Acct:[id number] Age/Sex: 68 / F ADM Date: 08/06/24 Loc: [facility] [place] Room: Type: [facility] Attending Dr: Bakari Rodriguez II, MD Copies to: Bakari Rodriguez MD Ordering Provider: Bakari Rodriguez MD Date of Service: 08/06/24 XR/XR hip LT min 2V(w/wo pelvis)*: M25.552 - Pain in left hip ([id number]) XR/XR knee LT 4V*: PAIN LEFT HIP [...] Jr., D.OBerry 08/06/2024 4:48 PM Dictation Location: [place] [address] Transcribed By: [facility] 08/06/241647 Dictated By: Fernie Dixon Jr, DO 08/06/241644 Signed By: 08/06/241647 Normal [facility] pH Test strip (U)Ordered By: Ghislaine Kirkpatrick on 08-06-2024 pH (U) pH of Urine by Test strip 5.0-9.0 [facility] pH of Urine by Test stripOrd ered By: Ghislaine Kirkpatrick on 08-06-2024 pH (U) 5.5 [pH] Normal 5.0-9.0 [facility] Comment on above: Order Comment: Reaso n for Exam: Chronic kidney disease, stage III (moderate);Hypertensive ch Name Collection Type:: Clean-Voided Midstream Performed By: #### G LULS #### Point of Care testing , MLR HEMOGLOBIN A1Con 025 Glucose [Mass/Vol] 123 mg/dL [facility] HbA1c (Bld) [Mass fraction] 5.9 % 4.5 - 6.2 % [facility] Comment on above: ADA RECOMMENDED LIMI T 4.0 - 6.0 ADA THERAPEUTIC TARGET < 7.0 ACTION SUGGESTED > 7.0 [facility] MM TOMOSYNTHESIS SCREENING B Ion 05-06-2024 [place] [address] Mammography Report Signed Patient: DOUG COURTNEY MR#: [id number] : 1955 Acct:[id number] Age/Sex: 68 / F ADM Date: 05/06/24 Loc: MAMMO Attending Dr: Romulo Alvarez M.D. Ordering Physician: Romulo Alvarez M.D. Results: Date of Service: 05/06/24 Follow Up: Procedure(s): MM tomosynthesis screening BI Accession Number(s): [id number] cc: Romulo Alvarez M.D. Patient Name: DOUG COURTNEY MR#: [id number] : 1955 Exam Date: 05/06/2024 Ordering Doctor: [...] Treatments None Family Cancers None LOCATION: [facility] BREAST COMPOSITION: The breasts are almost [...] Signed By: 05/06/24 1201 DD/ 1200 TD/TT: Meat Washer: [facility] Radiology, Radiologchidi mari MD - 05/06/2024 [place] [address] Mammography Report Signed Patient: DOUG COURTNEY MR#: [id number] : 1955 Acct:[id number] Age/Sex: 68 / F ADM Date: 05/06/24 Loc: MAMMO Attending Dr: Romulo Alvarez M.D. Ordering Physician: Romulo Alvarez M.D. Results: Date of Service: 05/06/24 Follow Up: Procedure(s): MM tomosynthesis screening BI Accession Number(s): [id number] cc: Romulo Alvarez M.D. Patient Name: DOUG COURTNEY MR#: [id number] : 1955 Exam Date: 05/06/2024 Ordering Doctor: [...] Treatments None Family Cancers None LOCATION: [facility] BREAST COMPOSITION: The breasts are almost [...] Signed By: 05/06/24 1201 DD/ 1200 TD/TT: Meat Washer: [facility] [employer] Radiology Study observation (narrative) [facility] MM TOMOSYNTHESIS SCREENING B IOrdered By: Radiologist Radiology on 05-06-2024 [facility] [employer] Work Phone: Erythrocyte distribution wid th Auto (RBC) [Ratio]on 01-11-2024 Erythrocyte distribution width (RBC) [Ratio] 12.7 % 11.0-15.0 [facility] Estimated glomerular filtrat ion rate (GFR) non- Americanon 01-11-2024 GFR/1.73 sq M.predicted among non-blacks MDRD (S/P/Bld) [Vol rate/Area] 39 mL/min/{1.73_m2} Low >=60 mL/min/1.7 3m 2 [facility] HMHP CBC WITH PLATELET NO DI FFERENTIALon 01-11-2024 Erythrocyte distribution width (RBC) [Ratio] 12.7 % 11.0 - 15.0 % [facility] Hematocrit (Bld) [Volume fraction] 41.0 % 36.0 - 48.0 % [facility] Hemoglobin (Bld) [Mass/Vol] 13.0 g/dL 12.0 - 16.0 g/dL [facility] MCH (RBC) [Entitic mass] 29.9 pg 26.7 - 34.0 pg [facility] MCHC (RBC) [Mass/Vol] 31.7 g/dL 29.9 - 35.2 g/dL [facility] MCV (RBC) [Entitic vol] 94.3 fL 81.0 - 99.0 fL [facility] Platelet mean volume (Bld) [Entitic vol] 10.5 fL 9.5 - 13.5 fL [facility] TBH PLT 270 [facility] TBH RBC 4.35 [facility] TBH WBC 5.2 [facility] Hematocrit Auto (Bld) [Volum e fraction]on 01-11-2024 Hematocrit (Bld) [Volume fraction] 41.0 % 36.0-48.0 [facility] Hemoglobin [Mass/volume] in Bloodon 01-11-2024 Hemoglobin (Bld) [Mass/Vol] 13.0 g/dL 12.0-16.0 [facility] Laboratory - Chemistry and C hemistry - challengeon 01-11-2024 Albumin [Mass/Vol] 3.5 g/dL 3.4-5.0 [facility] Calcium [Mass/Vol] 9.4 mg/dL 8.5-10.1 [facility] Chloride [Moles/Vol] 100 mmol/L 98-107 [facility] CO2 [Moles/Vol] 30.6 mmol/L 21.0-32.0 [facility] Creatinine [Mass/Vol] 1.34 mg/dL High 0.55-1.02 [facility] GFR/1.73 sq M.predicted MDRD (S/P/Bld) [Vol rate/Area] 47 mL/min/{1.73_m2} Low >=60 mL/min/1.7 3m 2 [facility] Glucose [Mass/Vol] 107 mg/dL High 74-106 [facility] Magnesium [Mass/Vol] 2.1 mg/dL 1.8-2.4 [facility] Potassium [Moles/Vol] 4.6 mmol/L 3.5-5.1 [facility] Sodium [Moles/Vol] 135 mmol/L Low 136-145 [facility] Urate [Mass/Vol] 4.6 mg/dL 2.6-6.0 [facility] Urea nitrogen [Mass/Vol] 24.0 mg/dL High 7.0-18.0 [facility] Urea nitrogen/Creatinine [Mass ratio] 17.9 mg/mg [facility] Bilirubin Ql (U) Negative NEGATIVE [facility] Glucose (U) [Mass/Vol] mg/dL Abnormal NEGATIVE [facility] Ketones Ql (U) Negative NEGATIVE [facility] pH (U) 7.0 [pH] 5.0-9.0 [facility] Specific gravity (U) [Rel density] 1.020 1.005-1.02 5 [facility] Urobilinogen Qn (U) 0.2 {Myriam'U}/dL 0.2-1.0 [facility] Laboratory - Specimen inform ationon 01-11-2024 Appearance (U) CLEAR CLEAR [facility] Color (U) YELLOW YELLOW [facility] Laboratory - Urinalysison Leukocyte esterase Test strip Ql (U) Negative NEGATIVE [facility] Mucus Ql (Urine sed) NONE SEEN NONE SEEN [facility] Nitrite Ql (U) Negative NEGATIVE [facility] Protein (U) [Mass/Vol] 15.2 mg/dL High <=11.9 [facility] Protein Ql (U) Negative NEG/TRACE [facility] Leukocytes [#/volume] correc rod for nucleated erythrocytes in Blood by Automated counon 01-11-2024 WBC corrected for nucl RBC Auto (Bld) [#/Vol] 5.2 10 3/uL 4.0-11.0 [facility] MCH Auto (RBC) [Entitic mass ]on 01-11-2024 MCH (RBC) [Entitic mass] 29.9 pg 26.7-34.0 [facility] MCHC Auto (RBC) [Mass/Vol]on 01-11-2024 MCHC (RBC) [Mass/Vol] 31.7 g/dL 29.9-35.2 [facility] MCV Auto (RBC) [Entitic vol] on 01-11-2024 MCV (RBC) [Entitic vol] 94.3 fL 81.0-99.0 [facility] No Panel Informationon 01-10 25-Hydroxy Vitamin D Total 58.3 ng/mL [facility] Comment on above: <20 ng/mL Vit D defi cient20-<30 ng/mL Vit D [id number] ng/mL Vit D sufficient>100 ng/mL Potential Toxicity Parathyroid Hormone (Intact) 36 pg/mL 15-65 [facility] Comment on above: Performed at: [facility] [employer] [place] [id number] Director: Rakesh Grace PhD, Phone: [phone] Phosphorus Level 3.8 mg/dL 2.6-4.7 [facility] Urine Bacteria NONE SEEN #/HPF NONE SEEN [facility] Urine Calcium Oxalate Crystals MODERATE [facility] Urine Occult Blood Negative NEGATIVE [facility] Urine Other Casts NONE SEEN #/LPF NONE SEEN [facility] Urine Other Crystals Seen #/HPF Abnormal None Seen [facility] Urine Random Creatinine 94.11 mg/dL 20.00-300. 00 [facility] Urine RBC 0-2 #/HPF 0-2 [facility] Urine Squamous Epithelial Cells NONE SEEN #/LPF NONE/RARE [facility] Urine WBC 0-2 #/HPF Abnormal NONE SEEN [facility] Platelet mean volume Auto (B ld) [Entitic vol]on 01-11-2024 Platelet mean volume (Bld) [Entitic vol] 10.5 fL 9.5-13.5 [facility] Platelets Auto (Bld) [#/Vol] on 01-11-2024 Platelets (Bld) [#/Vol] 270 10 3/uL 150-450 [facility] RBC Auto (Bld) [#/Vol]on RBC (Bld) [#/Vol] 4.35 10 6/uL 4.20-5.40 [facility] Serum or plasma anion gap de terminationon 01-11-2024 Anion gap [Moles/Vol] 9.0 mmol/L [facility] Urine protein/creatinine rat ioon 01-11-2024 Protein/Creatinine (U) [Ratio] 0.16 [facility] Bacteria identified Cx Nom ( U)on 09-20-2023 Service comment (Unsp spec) [Interp] MULTIPLE SPECIES PRESENT. PROBABLE COLLECTION CONTAMINATION. SUGGEST REPEAT SPECIMEN. [facility] BASIC METABOLIC PANLon 09-18 Anion gap [Moles/Vol] 7 mmol/L Normal 5-15 [facility] Comment on above: Performed By: #### C SELAM SALDANA, HA1C #### [facility] ([id number]) [address], [address] [place] [address] Calcium [Mass/Vol] 9.7 mg/dL Normal 8.5-10.5 [facility] Comment on above: Performed By: #### C SELAM SALDANA, HA1C #### [facility] ([id number]) [address], [address] [place] [address] Chloride [Moles/Vol] 99 mmol/L Normal 98-109 [facility] Comment on above: Performed By: #### Raz BCA BMP, HA1C #### [facility] ([id number]) [address], [address] [place] [address] CO2 [Moles/Vol] 30 mmol/L Normal 22-32 [facility] Comment on above: Performed By: #### Raz BCA BMP, HA1C #### [facility] ([id number]) [address], [address] [place] [address] Creatinine [Mass/Vol] 1.09 mg/dL High 0.40-1.00 [facility] Comment on above: Result Comment: METH OD TRACEABLE TO IDMS STANDARD Performed By: #### C SELAM SALDANA, HA1C #### [facility] ([id number]) [address], [facility] [address] [place] [address] GFR/1.73 sq M.predicted among non-blacks MDRD (S/P/Bld) [Vol rate/Area] 55 mL/min/{1.73_m2} Low >59 [facility] Comment on above: Result Comment: Reported eGFR is based on the CKD-EPI 2020 equation that does not use a race coefficient. Performed By: #### C SELAM SALDANA, HA1C #### [facility] ([id number]) [address], [facility] [address] [place] [address] Glucose [Mass/Vol] 109 mg/dL High 65-99 [facility] Comment on above: Performed By: #### C SELAM SALDANA, HA1C #### [facility] ([id number]) [address] [address] [place] [address] Potassium [Moles/Vol] 4.1 mmol/L Normal 3.5-5.0 [facility] Comment on above: Performed By: #### C SELAM SALDANA, HA1C #### [facility] ([id number]) [address], [address] [place] [address] Sodium [Moles/Vol] 136 mmol/L Normal 134-146 [facility] Comment on above: Performed By: #### C SELAM SALDANA, HA1C #### [facility] ([id number]) [address] [address] [place] [address] Urea nitrogen [Mass/Vol] 26 mg/dL Normal 5-27 [facility] Comment on above: Performed By: #### C SELAM SALDANA, HA1C #### [facility] ([id number]) [address] [address] [place] [address] Basic Metabolic Panelon 06- Anion gap [Moles/Vol] 7 mmol/L 5 - 15 mmol/L [facility] Calcium [Mass/Vol] 9.7 mg/dL 8.5 - 10. 5 mg/dL [facility] Chloride [Moles/Vol] 99 mmol/L 98 - 10 9 mmol/L [facility] CO2 [Moles/Vol] 30 mmol/L 22 - 32 mmol/L [facility] Creatinine [Mass/Vol] 1.09 mg/dL High 0.40 - 1.00 mg/dL [facility] Comment on above: METHOD TRACEABLE TO [facility] STANDARD eGFR (CKD-EPI)non-race dependent 55 Low - PINF [facility] Comment on above: Reported eGFR is based on the CKD-EPI 2020 equation that does not use a race coefficient. Glucose [Mass/Vol] 109 mg/dL High 65 - 99 mg/dL [facility] Interpretation and review of laboratory results Abnormal [facility] Potassium [Moles/Vol] 4.1 mmol/L 3.5 - 5.0 mmol/L [facility] Sodium [Moles/Vol] 136 mmol/L 134 - 146 mmol/L [facility] Urea nitrogen [Mass/Vol] 26 mg/dL 5 - 27 mg/dL [facility] CBC AND AUTO DIFFon 09-19-19 24 ABSOLUTE BASOPHIL 0.1 X10E9/L Normal 0.0-0.2 [facility] Comment on above: Performed By: #### C SELAM SALDANA, HA1C #### [facility] ([id number]) [address], [address] [place] [address] ABSOLUTE NEUTROPHIL 3.1 X10E9/L Normal 1.5-6.6 [facility] Comment on above: Performed By: #### C SELAM SALDANA, HA1C #### [facility] ([id number]) [address] [place] [address] Basophils/100 WBC (Bld) 1.1 % Normal [facility] Comment on above: Performed By: #### SELAM Crandall BCA, HA1C #### [facility] ([id number]) [address], [facility] [address] [place] [address] Eosinophils (Bld) [#/Vol] 0.2 10*3/uL Normal 0.0-0.4 [facility] Comment on above: Performed By: #### SELAM Crandall BCA, HA1C #### [facility] ([id number]) [address], [facility] [address] [place] [address] Eosinophils/100 WBC (Bld) 3.6 % Normal [facility] Comment on above: Performed By: #### C SELAM SALDANA, HA1C #### [facility] ([id number]) [address], [facility] [address] [place] [address] Erythrocyte distribution width (RBC) [Ratio] 13.3 % Normal 11.5-15.0 [facility] Comment on above: Performed By: #### SELAM Crandall BCA, HA1C #### [facility] ([id number]) [address], [facility] [address] [place] [address] Hematocrit (Bld) [Volume fraction] 36.8 % Normal 35-47 [facility] Comment on above: Performed By: #### SELAM Crandall BCA, HA1C #### [facility] ([id number]) [address] [address] [place] [address] Hemoglobin (Bld) [Mass/Vol] 12.0 g/dL Normal 11.7-15.5 [facility] Comment on above: Performed By: #### SELAM Crandall BCA, HA1C #### [facility] ([id number]) [address] [address] [place] [address] Lymphocytes (Bld) [#/Vol] 1.5 10*3/uL Normal 1.0-3.5 [facility] Comment on above: Performed By: #### SELAM Crandall BCA, HA1C #### [facility] ([id number]) [address], [facility] [address] [place] [address] Lymphocytes/100 WBC (Bld) 26.2 % Normal [facility] Comment on above: Performed By: #### SELAM Crandall BCA, HA1C #### [facility] ([id number]) [address] [place] [address] MCH (RBC) [Entitic mass] 30.0 pg Normal 27-34 [facility] Comment on above: Performed By: #### SELAM Crandall BCA, HA1C #### [facility] ([id number]) [address], [address] [place] [address] MCHC (RBC) [Mass/Vol] 32.6 g/dL Normal 32-36 [facility] Comment on above: Performed By: #### SELAM Crandall BCA, HA1C #### [facility] ([id number]) [address], [address] [place] [address] MCV (RBC) [Entitic vol] 92 fL Normal 80-100 [facility] Comment on above: Performed By: #### SELAM Crandall BCA, HA1C #### [facility] ([id number]) [address] [place] [address] Monocytes (Bld) [#/Vol] 0.7 10*3/uL Normal 0-0.9 [facility] Comment on above: Performed By: #### SELAM Crandall BCA, HA1C #### [facility] ([id number]) [address] [place] [address] Monocytes/100 WBC (Bld) 13.1 % Normal [facility] [facility] Comment on above: Performed By: #### SELAM Crandall BCA, HA1C #### [facility] ([id number]) [address], [address] [place] [address] Neutrophils/100 WBC (Bld) 56.0 % Normal [facility] Comment on above: Performed By: #### SELAM Crandall BCA, HA1C #### [facility] ([id number]) [address], [address] [place] [address] Platelet mean volume (Bld) [Entitic vol] 9.6 fL Normal 7-12 [facility] Comment on above: Performed By: #### SELAM Carndall BCA, HA1C #### [facility] ([id number]) [address], [facility] [address] [place] [address] Platelets (Bld) [#/Vol] 274 10*3/uL Normal 150-450 [facility] Comment on above: Performed By: #### SELAM Crandall BCA, HA1C #### [facility] ([id number]) [address], [address] [place] [address] RBC COUNT 4.00 X10E12/L Normal 3.80-5.20 [facility] Comment on above: Performed By: #### SELAM Crandall BCA, HA1C #### [facility] ([id number]) [address], [address] [place] [address] WBC (Bld) [#/Vol] 5.6 10*3/uL Normal 4.0-11.0 [facility] Comment on above: Performed By: #### SELAM Crandall BCA, HA1C #### [facility] ([id number]) [address], [facility] [address] [place] [address] CBC auto differentialon 09-07 Basophils (Bld) [#/Vol] 0.1 10*3/uL [facility] Basophils/100 WBC (Bld) 1.1 % [facility] Eosinophils (Bld) [#/Vol] 0.2 10*3/uL [facility] Eosinophils/100 WBC (Bld) 3.6 % [facility] Erythrocyte distribution width (RBC) [Ratio] 13.3 % 11.5 - 15.0 % [facility] Hematocrit (Bld) [Volume fraction] 36.8 % 35 - 47 % [facility] Hemoglobin (Bld) [Mass/Vol] 12.0 g/dL 11.7 - 15.5 g/dL [facility] Lymphocytes (Bld) [#/Vol] 1.5 10*3/uL [facility] Lymphocytes/100 WBC (Bld) 26.2 % [facility] MCH (RBC) [Entitic mass] 30.0 pg 27 - 34 pg [facility] MCHC (RBC) [Mass/Vol] 32.6 g/dL 32 - 3 6 g/dL [facility] MCV (RBC) [Entitic vol] 92 fL 80 - 100 fL [facility] Monocytes (Bld) [#/Vol] 0.7 10*3/uL [facility] Monocytes/100 WBC (Bld) 13.1 % [facility] Neutrophils (Bld) [#/Vol] 3.1 10*3/uL [facility] Neutrophils/100 WBC (Bld) 56.0 % [facility] Platelet mean volume (Bld) [Entitic vol] 9.6 fL 7 - 12 fL [facility] Platelets (Bld) [#/Vol] 274 10*3/uL [facility] RBC (Bld) [#/Vol] 4.00 10*6/uL [facility] WBC corrected for nucl RBC Auto (Bld) [#/Vol] 5.6 [facility] ECG 12 leadon 09-19-2023 TRACEMASTERVUE [facility] HGB A1C (GLYCO-HGB)on 2023 Glucose [Mass/Vol] 131 mg/dL Normal [facility] Comment on above: Performed By: #### C BCA, BMP, HA1C #### [facility] ([id number]) [address] [facility], [address] [place] [address] HbA1c (Bld) [Mass fraction] 6.2 % High 4.4-5.6 [facility] Comment on above: Result Comment: NOTE ADA Guidelines Result HgbA1c Normal : less than 5.7 % Prediabetes : 5.7 % to 6.4 % Diabetes : > 6.4 % Use with caution in patients with abnormal hemoglobin variants as the half-life of red blood cells and in vivo glycation rates are affected. Performed By: #### C BCA, BMP, HA1C #### [facility] ([id number]) [address] [facility], [address] [place] [address] Hemoglobin A1con 09-19-2023 Average glucose Estimated from glycated hemoglobin (Bld) [Mass/Vol] 131 mg/dL [facility] HbA1c (Bld) [Mass fraction] 6.2 % High 4.4 - 5.6 % [facility] Comment on above: NOTE ADA Guidelines Result HgbA1c Normal : less than 5.7 % Prediabetes : 5.7 % to 6.4 % Diabetes : > 6.4 % Use with caution in patients with abnormal hemoglobin variants as the half-life of red blood cells and in vivo glycation rates are affected. Interpretation and review of laboratory results Abnormal [facility] URINALYSISon 09-19-2023 Bilirubin Ql (U) Negative Normal NEG [facility] Comment on above: Performed By: #### U A #### [facility] ([id number]) [address] [place] [address], [address] [address] BLOOD/HGB Negative Normal NEG [facility] Comment on above: Performed By: #### U A #### [facility] ([id number]) [address] [place] [address], [facility] [address] [place] [address] Color (U) YELLOW Normal YELLOW [facility] Comment on above: Performed By: #### U A #### [facility] ([id number]) [address] [place] [address], [facility] [address] [place] [address] Glucose Ql (U) Negative Normal NEG [facility] Comment on above: Performed By: #### U A #### [facility] ([id number]) [address] [place] [address], [address] [place] [address] Hyaline casts LM Ql (Urine sed) 1 /lpf Normal 0-2 [facility] Comment on above: Performed By: #### U A #### [facility] ([id number]) [address], [address] [place] [address] Ketones Ql (U) Negative Normal NEG [facility] Comment on above: Performed By: #### U A #### [facility] ([id number]) [address] [place] [address] Leukocyte esterase Test strip Ql (U) Large Abnormal NEG [facility] Comment on above: Performed By: #### U A #### [facility] ([id number]) [address] [place] [address] MUCOUS PRESENT Abnormal NONE [facility] Comment on above: Performed By: #### U A #### [facility] ([id number]) [address], [address] [place] [address] Nitrite Ql (U) Negative Normal NEG [facility] Comment on above: Performed By: #### U A #### [facility] ([id number]) [address] [place] [address] pH (U) 8.0 [pH] Normal 5.0-8.5 [facility] Comment on above: Performed By: #### U A #### [facility] ([id number]) [address] [place] [address] Protein Ql (U) Trace Abnormal NEG [facility] Comment on above: Performed By: #### U A #### [facility] ([id number]) [address] [place] [address] R.B.CELLS 4 /hpf Normal 0-5 [facility] Comment on above: Performed By: #### U A #### [facility] ([id number]) [address] [place] [address] Specific gravity (U) [Rel density] 1.015 Normal 1.003-1.03 5 [facility] Comment on above: Performed By: #### U A #### [facility] ([id number]) [address] [place] [address] SQUAMOUS EPITHELIUM 2 /hpf Normal 0-5 [facility] Comment on above: Performed By: #### U A #### [facility] ([id number]) [address] [place] [address] TRANSITIONAL EPITH <1 High 0 [facility] Comment on above: Performed By: #### U A #### [facility] ([id number]) [address] [address] [place] [address] TURBIDITY HAZY Abnormal CLEAR [facility] Comment on above: Performed By: #### U A #### [facility] ([id number]) [address] [place] [address] Urobilinogen (U) [Mass/Vol] mg/dL Normal <1.1 [facility] Comment on above: Performed By: #### U A #### [facility] ([id number]) [address] [address] [place] [address] W.B.CELLS 60 /hpf High 0-5 [facility] Comment on above: Performed By: #### U A #### [facility] ([id number]) [address] [address] [place] [address] URINE CULTUREon 09-19-2023 Bacteria identified Cx Nom (U) CULTURE RESULTS MULTIPLE SPECIES PRESENT. PROBABLE COLLECTION CONTAMINATION. SUGGEST REPEAT SPECIMEN. Normal [facility] Comment on above: Performed By: #### 6 30-4 #### [facility] ([id number]) [address] [place] [address] Urinalysison 09-19-2023 Bilirubin Ql (U) Negative Negative^N egative [facility] Color (U) YELLOW YELLOW^YEL LOW [facility] Epithelial cells Auto (Urine sed) [#/Area] 2 [facility] Epithelial cells.non-squamous LM.LPF (Urine sed) [#/Area] High 0 /hpf [facility] Glucose (U) [Mass/Vol] Negative Negative^N egative mg/dL [facility] Hemoglobin Auto test strip Ql (U) Negative Negative^N egative [facility] Hyaline casts (Urine sed) [#/Area] 1 /[LPF] [facility] Interpretation and review of laboratory results Abnormal [facility] Ketones (U) [Mass/Vol] Negative Negative^N egative mg/dL [facility] Leukocyte esterase Auto test strip Ql (U) Large Abnormal Negative^N egative [facility] Mucus Ql (Urine sed) PRESENT Abnormal NONE^NONE [facility] Nitrite Auto test strip Ql (U) Negative Negative^N egative [facility] pH (U) 8.0 [pH] 5.0 - 8.5 [facility] Protein (U) [Mass/Vol] Trace Abnormal Negative^N egative mg/dL [facility] RBC Auto (Urine sed) [#/Area] 4 [facility] Specific gravity Refractometry automated (U) [Rel density] 1.015 1.003 - 1.035 [facility] Turbidity Ql (U) HAZY Abnormal CLEAR^ROSIBEL R [facility] Urobilinogen Qn (U) NINF [facility] WBC Auto (Urine sed) [#/Area] 60 High [facility] XR CHEST 2 VWSon 09-19-2023 XR CHEST 2 VWS XR CHEST 2 VWS XR CHEST 2 VWS INDICATION: Preop examination; Hypertension, unspecified type; Type 2 diabetes mellitus without complication, without long-term current use of insulin ([facility]); Urinary frequency; Former smoker; Osteoarthritis of left hip, unspecified osteoarthritis type. FINDINGS: Cardiac silhouette is normal in size. Trachea midline. No focal pulmonary consolidation. No pleural effusion. No pneumothorax. IMPRESSION: 1. Unremarkable chest radiographs. Finalized by Sincere Charles MD on 09/19/2023 11:47 PM Normal [facility] XR Chest PA and Lateralon XR CHEST 2 VWS INDICATION: Preop examination; Hypertension, unspecified type; Type 2 diabetes mellitus without complication, without long-term current use of insulin ([facility]); Urinary frequency; Former smoker; Osteoarthritis of left hip, unspecified osteoarthritis type. FINDINGS: Cardiac silhouette is normal in size. Trachea midline. No focal pulmonary consolidation. No pleural effusion. No pneumothorax. IMPRESSION: 1. Unremarkable chest radiographs. Finalized by Sincere Charles MD on 09/19/2023 11:47 PM [facility]CT[facility] Sincere Charles MD - 09/19/2023 XR CHEST 2 VWS INDICATION: Preop examination; Hypertension, unspecified type; Type 2 diabetes mellitus without complication, without long-term current use of insulin ([facility]); Urinary frequency; Former smoker; Osteoarthritis of left hip, unspecified osteoarthritis type. FINDINGS: Cardiac silhouette is normal in size. Trachea midline. No focal pulmonary consolidation. No pleural effusion. No pneumothorax. IMPRESSION: 1. Unremarkable chest radiographs. Finalized by Sincere Charles MD on 09/19/2023 11:47 PM [facility] Radiology Study observation (narrative) [facility] XR Chest PA and LateralOrder ed By: Sincere Charles on 09-19-2023 [facility] Work Phone: PTH INTACTon 09-01-2022 PTH, Intact 26 pg/mL Normal 15-65 [facility] Comment on above: Performed By: #### P THINT #### [facility] [address] [place], [place] [address] Dr. Nunu Borges CBC AUTO DIFFon 08-31-2022 BASO # 0.1 103/ul Normal 0.0-0.1 [facility] Comment on above: Performed By: #### U TIFFANIE, MG, RENAL #### [facility] [address] [place] [address] [address] Nunu Borges Basophils/100 WBC (Bld) 1.2 % Normal 0.2-2.0 [facility] Comment on above: Performed By: #### U TIFFANIE, MG, RENAL #### [facility] [address] [place] [address] Dr. Nunu Borges EO # 0.1 103/ul Normal 0.0-0.7 [facility] Comment on above: Performed By: #### U TIFFANIE, MG, RENAL #### [facility] [address] [place] [address] Dr. Nunu Borges Eosinophils/100 WBC (Bld) 2.2 % Normal 0.9-7.0 [facility] Comment on above: Performed By: #### U TIFFANIE, MG, RENAL #### [facility] [address] [place] [address] Dr. Nunu Borges Erythrocyte distribution width (RBC) [Ratio] 12.7 % Normal 11.0-15.0 [facility] Comment on above: Performed By: #### U TIFFANIE, MG, RENAL #### [facility] [address] [place] [address] Dr. Nunu Borges Hematocrit (Bld) [Volume fraction] 38.0 % Normal 36.0-48.0 [facility] Comment on above: Performed By: #### U TIFFANIE, MG, RENAL #### [facility] [address] [place] [address] Dr. Nunu Borges Hemoglobin (Bld) [Mass/Vol] 12.5 g/dL Normal 12.0-16.0 [facility] Comment on above: Performed By: #### U TIFFANIE, MG, RENAL #### [facility] [address] [place] [address] Dr. Nunu Borges IG # 0.02 10e3/ul Normal 0.00-0.03 [facility] Comment on above: Performed By: #### U TIFFANIE, MG, RENAL #### [facility] [address] [place] [address] Dr. Nunu Borges IG % 0.3 % Normal 0.0-0.5 [facility] Comment on above: Performed By: #### U TIFFANEI, MG, RENAL #### [facility] [address] [place] [address] [address] Nunu Borges LYMPH # 1.8 103/ul Normal 1.2-3.8 [facility] Comment on above: Performed By: #### U TIFFANIE, MG, RENAL #### [facility] [address] [place] [address] [address] Nunu Borges Lymphocytes/100 WBC (Bld) 30.7 % Normal 20.5-60.0 [facility] Comment on above: Performed By: #### U TIFFANIE, MG, RENAL #### [facility] [address] [place] [address] Dr. Nunu Borges MANUAL DIFF REQ NO Normal [facility] Comment on above: Performed By: #### U TIFFANIE, MG, RENAL #### [facility] [address] [place] [address] Dr. Nunu Borges MCH (RBC) [Entitic mass] 29.8 pg Normal 26.7-34.0 [facility] Comment on above: Performed By: #### U TIFFANIE, MG, RENAL #### [facility] [address] [place] [address] Dr. Nunu Borges MCHC (RBC) [Mass/Vol] 32.9 g/dL Normal 29.9-35.2 [facility] Comment on above: Performed By: #### U TIFFANIE, MG, RENAL #### [facility] [address] [place] [address] Dr. Nunu Borges MCV (RBC) [Entitic vol] 90.5 fL Normal 81.0-99.0 [facility] Comment on above: Performed By: #### U TIFFANIE, MG, RENAL #### [facility] [address] [place] [address] Dr. Nunu Borges MONO # 0.7 103/ul Normal 0.3-0.8 [facility] Comment on above: Performed By: #### U TIFFANIE, MG, RENAL #### [facility] [address] [place] [address] Dr. Nunu Borges Monocytes/100 WBC (Bld) 12.4 % Critically high 1.7-12.0 [facility] Comment on above: Performed By: #### U TIFFANIE, MG, RENAL #### [facility] [address] [place] [address] Dr. Nunu Borges NEUT # 3.1 103/ul Normal 1.4-6.5 [facility] Comment on above: Performed By: #### U TIFFANIE, MG, RENAL #### [facility] [address] [place] [address] Dr. Nunu Borges Neutrophils/100 WBC (Bld) 53.2 % Normal 43.0-75.0 [facility] Comment on above: Performed By: #### U TIFFANIE, MG, RENAL #### [facility] [address] [place] [address] Dr. Nunu Borges Platelet mean volume (Bld) [Entitic vol] 11.3 fL Normal 9.5-13.5 [facility] Comment on above: Performed By: #### U TIFFANIE, MG, RENAL #### [facility] [address] [place] [address] Dr. Nunu Borges PLT 284 103/ul Normal 150-450 [facility] Comment on above: Performed By: #### U TIFFANIE, MG, RENAL #### [facility] [address] [place] [address] Dr. Nunu Borges RBC 4.20 106/ul Normal 4.20-5.40 [facility] Comment on above: Performed By: #### U TIFFANIE, MG, RENAL #### [facility] [address] [place] [address] Dr. Nunu Borges WBC 5.9 103/ul Normal 4.0-11.0 [facility] Comment on above: Performed By: #### U TIFFANIE, MG, RENAL #### [facility] [address] [place] [address] Dr. Nunu Borges FERRITINon 08-31-2022 Ferritin [Mass/Vol] 66.0 ng/mL Normal 8.0-252.0 [facility] Comment on above: Performed By: #### U TIFFANIE, MG, RENAL #### [facility] [address] [place] [address] [address] Nunu Borges GLYCOHEMOGLOBIN A1Con 2022 ADA RECOMMENDATION SEE BELOW Normal [facility] Comment on above: Result Comment: ADA RECOMMENDED LIMIT 4.0 - 6.0 ADA THERAPEUTIC TARGET < 7.0 ACTION SUGGESTED > 7.0 Performed By: #### U TIFFANIE, MG, RENAL #### [facility] [address] [place] [address] [address] Nunu Borges Glucose [Mass/Vol] 134 mg/dL Normal [facility] Comment on above: Performed By: #### U TIFFANIE, MG, RENAL #### [facility] [address] [place] [address] [address] Nunu Borges HbA1c (Bld) [Mass fraction] 6.3 % Critically high 4.5-6.2 [facility] Comment on above: Performed By: #### U TIFFANIE, MG, RENAL #### [facility] [address] [place] [address] [address] Nunu Borges IRON AND TIBCon 08-31-2022 % SATURATION 25.9 % Normal [facility] Comment on above: Performed By: #### U TIFFANIE, MG, RENAL #### [facility] [address] [place] [address] [address] Nunu Borges Iron [Mass/Vol] 90.0 ug/dL Normal 50.0-170.0 [facility] Comment on above: Performed By: #### U TIFFANIE, MG, RENAL #### [facility] [address] [place] [address] [address] Nunu Borges TIBC DIRECT 348.0 ug/dL Normal 250.0-450. 0 [facility] Comment on above: Performed By: #### U TIFFANIE, MG, RENAL #### [facility] [address] [place] [address] Dr. Nunu Borges LIPID PROFILEon 08-31-2022 CHOL-HDL RATIO NORM SEE BELOW Normal [facility] Comment on above: Result Comment: 3.3 - 4.4 LOW RISK 4.4 - 7.1 AVERAGE RISK 7.1 - 11.0 MODERATE RISK >11.0 HIGH RISK Performed By: #### U TIFFANIE, MG, RENAL #### [facility] [address] [place] [address] [address] Nunu Borges Cholesterol [Mass/Vol] 152 mg/dL Normal <=200 [facility] Comment on above: Performed By: #### U TIFFANIE, MG, RENAL #### [facility] [address] [place] [address] [address] Nunu Borges Cholesterol in HDL [Mass/Vol] 77 mg/dL Critically high 40-60 [facility] Comment on above: Performed By: #### U TIFFANIE, MG, RENAL #### [facility] [address] [place] [address] [address] Nunu Borges Cholesterol in LDL [Mass/Vol] 63.2 mg/dL Normal [facility] Comment on above: Performed By: #### U TIFFANIE, MG, RENAL #### [facility] [address] [place] [address] [address] Nunu Borges Cholesterol.total/Cho lesterol in HDL [Mass ratio] 2.0 {ratio} Normal [facility] Comment on above: Performed By: #### U TIFFANIE, MG, RENAL #### [facility] [address] [place] [address] [address] Nunu Borges HDL NORMAL > or = 60 mg/dl - LO W CARDIOVASCULAR RISK <40 mg/dl - HIGH CARDIOVASCULAR RISK Normal [facility] Comment on above: Performed By: #### U TIFFANIE, MG, RENAL #### [facility] [address] [place] [address] [address] Nunu Borges LDL CALC NORMAL SEE BELOW Normal [facility] Comment on above: Result Comment: <100 mg/dl OPTIMAL 100 - 129 mg/dl NEAR OR ABOVE OPTIMAL 130 - 159 mg/dl BORDERLINE HIGH 160 - 189 mg/dl HIGH >190 mg/dl VERY HIGH Performed By: #### U TIFFANIE, MG, RENAL #### [facility] [address] [place] [address] [address] Nunu Borges Triglyceride [Mass/Vol] 59 mg/dL Normal <=150 [facility] Comment on above: Performed By: #### U TIFFANIE, MG, RENAL #### [facility] [address] [place] [address] [address] Nunu Borges VLDL CALC 11.8 mg/dL Normal [facility] Comment on above: Performed By: #### U TIFFANIE, MG, RENAL #### [facility] [address] [place] [address] [address] Nunu Borges LIVER PROFILEon 08-31-2022 Albumin/Globulin [Mass ratio] 1.1 {ratio} Normal [facility] Comment on above: Performed By: #### U TIFFANIE, MG, RENAL #### [facility] [address] [place] [address] [address] Nunu Borges ALP [Catalytic activity/Vol] 129 U/L Critically high 46-116 [facility] Comment on above: Performed By: #### U TIFFANIE, MG, RENAL #### [facility] [address] [place] [address] [address] Nunu Borges ALT [Catalytic activity/Vol] 32 U/L Normal 14-59 [facility] Comment on above: Performed By: #### U TIFFANIE, MG, RENAL #### [facility] [address] [place] [address] [address] Nunu Borges AST [Catalytic activity/Vol] 20 U/L Normal 15-37 [facility] Comment on above: Performed By: #### U TIFFANIE, MG, RENAL #### [facility] [address] [place] [address] [address] Nunu Borges BILI, CONJUGATED 0.2 mg/dL Normal 0.0-0.2 [facility] Comment on above: Performed By: #### U TIFFANIE, MG, RENAL #### [facility] [address] [place] [address] [address] Nunu Borges Bilirubin [Mass/Vol] 0.8 mg/dL Normal 0.2-1.0 [facility] Comment on above: Performed By: #### U TIFFANIE, MG, RENAL #### [facility] [address] [place] [address] [address] Nunu Borges Globulin (S) [Mass/Vol] 3.6 g/dL Normal [facility] Comment on above: Performed By: #### U TIFFANIE, MG, RENAL #### [facility] [address] [place] [address] Dr. Nunu Borges Protein [Mass/Vol] 7.5 g/dL Normal 6.4-8.2 [facility] Comment on above: Performed By: #### U TIFFANIE, MG, RENAL #### [facility] [address] [place] [address] Dr. Nunu Borges MAGNESIUMon 08-31-2022 Magnesium [Mass/Vol] 1.8 mg/dL Normal 1.8-2.4 [facility] Comment on above: Performed By: #### U TIFFANIE, MG, RENAL #### [facility] [address] [place] [address] Dr. Nunu Borges MICROALBUMIN, RAND URon 08-08 mALB <1.3 Normal <=30.0 [facility] Comment on above: Performed By: #### U TIFFANIE, MG, RENAL #### [facility] [address] [place] [address] Dr. Nunu Borges PROF CHEM 8 (BAS METB)on Anion gap [Moles/Vol] 14.3 mmol/L Normal [facility] Comment on above: Performed By: #### U TIFFANIE, MG, RENAL #### [facility] [address] [place] [address] Dr. Nunu Borges CO2 [Moles/Vol] 27.7 mmol/L Normal 21.0-32.0 [facility] Comment on above: Performed By: #### U TIFFANIE, MG, RENAL #### [facility] Laboratory [address] [place] [address] Dr. Nunu Borges Glucose [Mass/Vol] 119 mg/dL Critically high 74-106 [facility] Comment on above: Performed By: #### U TIFFANIE, MG, RENAL #### [facility] [address] [place] [address] Dr. Nunu Borges Urea nitrogen/Creatinine [Mass ratio] 22.7 mg/mg Normal [facility] Comment on above: Performed By: #### U TIFFANIE, MG, RENAL #### [facility] [address] [place], [place] [id number] Dr. Nunu Borges RENAL FUNCTION PANELon 08-31 Albumin [Mass/Vol] 3.9 g/dL Normal 3.4-5.0 [facility] Comment on above: Performed By: #### U TIFFANIE, MG, RENAL #### [facility] [address] [address] [address] Nunu Borges Calcium [Mass/Vol] 9.7 mg/dL Normal 8.5-10.1 [facility] Comment on above: Performed By: #### U TIFFANIE, MG, RENAL #### [facility] [address] [address] [address] Nunu Borges Chloride [Moles/Vol] 99 mmol/L Normal 98-107 [facility] Comment on above: Performed By: #### U TIFFANIE, MG, RENAL #### [facility] [address] [place] [address] Dr. Nunu Borges CO2 [Moles/Vol] 28.0 mmol/L Normal 21.0-32.0 [facility] Comment on above: Performed By: #### U TIFFANIE, MG, RENAL #### [facility] [address] [address] [address] Nunu Borges Creatinine [Mass/Vol] 1.32 mg/dL Critically high 0.55-1.02 [facility] Comment on above: Performed By: #### U TIFFANIE, MG, RENAL #### [facility] [address] [address] [address] Nunu Borges EGFR-AF BELGIAN 49 mL/min/1.73m2 Critically low >=60 [facility] Comment on above: Performed By: #### U TIFFANIE, MG, RENAL #### [facility] [address] [address] [address] Nunu Borges EGFR-NON AF BELGIAN 40 mL/min/1.73m2 Critically low >=60 [facility] Comment on above: Performed By: #### U TIFFANIE, MG, RENAL #### [facility] [address] [address] [address] Nunu Borges Glucose [Mass/Vol] 118 mg/dL Critically high 74-106 [facility] Comment on above: Performed By: #### U TIFFANIE, MG, RENAL #### [facility] [address] [address] [address] Nunu Borges Phosphate [Mass/Vol] 3.6 mg/dL Normal 2.6-4.7 [facility] Comment on above: Performed By: #### U TIFFANIE, MG, RENAL #### [facility] [address] [place] [address] Dr. Nunu Borges Potassium [Moles/Vol] 4.0 mmol/L Normal 3.5-5.1 [facility] Comment on above: Performed By: #### U TIFFANIE, MG, RENAL #### [facility] [address] [place] [address] Dr. Nunu Borges Sodium [Moles/Vol] 137 mmol/L Normal 136-145 [facility] Comment on above: Performed By: #### U TIFFANIE, MG, RENAL #### [facility] [address] [place] [address] Dr. Nunu Borges Urea nitrogen [Mass/Vol] 30.0 mg/dL Critically high 7.0-18.0 [facility] Comment on above: Performed By: #### U TIFFANIE, MG, RENAL #### [facility] [address] [place] [address] Dr. Nunu Borges UA RANDOM W/MICROSCOPICon BACTERIA NONE SEEN Normal NONE SEEN [facility] Comment on above: Performed By: #### U AMIC #### [facility] [address] [place] [address] Dr. Nunu Borges Bilirubin Ql (U) Negative Normal NEGATIVE [facility] Comment on above: Performed By: #### U AMIC #### [facility] [address] [place] [address] Dr. Nunu Borges CAST NONE SEEN Normal NONE SEEN [facility] Comment on above: Performed By: #### U AMIC #### [facility] [address] [place] [address] Dr. Nunu Borges Clarity (U) CLEAR Normal CLEAR [facility] Comment on above: Performed By: #### U AMIC #### [facility] [address] [address] [address] Nunu Borges Color (U) LT. YELLOW Normal YELLOW [facility] Comment on above: Performed By: #### U AMIC #### [facility] [address] [address] [address] Nunu Borges Crystals LM Nom (Urine sed) NONE SEEN Normal NONE SEEN [facility] Comment on above: Performed By: #### U AMIC #### [facility] [address] [place] [address] Dr. Nunu Borges Epithelial cells LM Ql (Urine sed) FEW Abnormal NONE SEEN /RARE [facility] Comment on above: Performed By: #### U AMIC #### [facility] [address] [place] [address] Dr. Nunu Borges Glucose Ql (U) Negative Normal NEGATIVE [facility] Comment on above: Performed By: #### U AMIC #### [facility] [address] [address] [address] Nunu Borges Hemoglobin Ql (U) Negative Normal NEGATIVE [facility] Comment on above: Performed By: #### U AMIC #### [facility] [address] [place] [address] Dr. Nunu Borges Ketones Ql (U) Negative Normal NEGATIVE [facility] Comment on above: Performed By: #### U AMIC #### [facility] [address] [address] [address] Nunu Borges LEUKOCYTES TRACE Abnormal NEGATIVE [facility] Comment on above: Performed By: #### U AMIC #### [facility] [address] [place] [address] Dr. Nunu Borges MUCOUS NONE SEEN Normal NONE SEEN [facility] Comment on above: Performed By: #### U AMIC #### [facility] [address] [place] [address] Dr. Nunu Borges Nitrite Ql (U) Negative Normal NEGATIVE [facility] Comment on above: Performed By: #### U AMIC #### [facility] [address] [place] [address] Dr. Nunu Borges pH (U) 6.0 [pH] Normal 5-9 [facility] Comment on above: Performed By: #### U AMIC #### [facility] [address] [place] [address] Dr. Nunu Borges RBC NONE SEEN Abnormal 0-2 [facility] Comment on above: Performed By: #### U AMIC #### [facility] [address] [place] [address] Dr. Nunu Borges SPEC GRAVITY 1.015 Normal 1.005-<=1. 025 [facility] Comment on above: Performed By: #### U AMIC #### [facility] [address] [place] [address] Dr. Nunu Borges UA PROTEIN Negative Normal NEGATIVE/ TRACE [facility] Comment on above: Performed By: #### U AMIC #### [facility] [address] [place] [address] Dr. Nunu Borges Urobilinogen Qn (U) 0.2 {Myriam'U}/dL Normal 0.2 - 1. 0 [facility] Comment on above: Performed By: #### U AMIC #### [facility] [address] [place] [address] Dr. Nunu Borges WBC 2-5 Abnormal NONE SEEN [facility] Comment on above: Performed By: #### U AMIC #### [facility] [address] [place] [address] Dr. Nunu Borges URIC ACID SERUMon 08-31-2022 Urate [Mass/Vol] 6.3 mg/dL Critically high 2.6-6.0 [facility] Comment on above: Performed By: #### U TIFFANIE, MG, RENAL #### [facility] [address] [place] [address] Dr. Nunu Borges URINE T PROTEIN CREAT RATIOo n 08-31-2022 Protein (U) [Mass/Vol] 13.3 mg/dL Critically high <=12.0 [facility] Comment on above: Performed By: #### U TIFFANIE, MG, RENAL #### [facility] [address] [address] [address] Nunu Borges UR PROT CREAT RAT 0.11 Normal [facility] Comment on above: Performed By: #### U TIFFANIE, MG, RENAL #### [facility] [address] [address] [address] Nunu Borges URINE CREAT 121.05 mg/dL Normal 20.00-300. 00 [facility] Comment on above: Performed By: #### U TIFFANIE, MG, RENAL #### [facility] [address] [address] [address] Nunu Borges VITAMIN D 25 OHon 08-31-2022 VIT D 25-OH 79.7 ng/mL Normal [facility] Comment on above: Performed By: #### U TIFFANIE, MG, RENAL #### [facility] [address] [place] [address] Dr. Nunu Borges VIT D RANGES SEE BELOW Normal [facility] Comment on above: Result Comment: <20 ng/mL Vit D deficient 20 - <30 ng/mL Vit D insufficient 30 - 100 ng/mL Vit D sufficient >100 ng/mL Potential Toxicity Performed By: #### U TIFFANIE, MG, RENAL #### [facility] [address] [address] [address] Nunu Borges POINT OF CARE GLUCOSEon 04-1 Glucose [Mass/Vol] 132 mg/dL Critically high 74-106 [facility] Comment on above: Performed By: #### U AMIC #### [facility] [address] [place] [address] Dr. Nunu Borges PTH INTACTon 02-15-2022 PTH, Intact 36 pg/mL Normal 15-65 [facility] Comment on above: Performed By: #### U TIFFANIE, MG, RENAL #### [facility] [address] [place] [address] Dr. Nunu Borges UA RANDOM W/MICROSCOPICon BACTERIA TRACE Abnormal NONE SEEN [facility] Comment on above: Performed By: #### U AMIC #### [facility] [address] [place] [address] Dr. Nunu Borges Bilirubin Ql (U) Negative Normal NEGATIVE [facility] Comment on above: Performed By: #### U AMIC #### [facility] [address] [address] [address] Nunu Borges CAST NONE SEEN Normal NONE SEEN [facility] Comment on above: Performed By: #### U AMIC #### [facility] [address] [address] [address] Nunu Borges Clarity (U) CLEAR Normal CLEAR [facility] Comment on above: Performed By: #### U AMIC #### [facility] [address] [address] [address] Nunu Borges Color (U) LT. YELLOW Normal YELLOW [facility] Comment on above: Performed By: #### U AMIC #### [facility] [address] [place] [address] Dr. Nunu Borges Crystals LM Nom (Urine sed) NONE SEEN Normal NONE SEEN [facility] Comment on above: Performed By: #### U AMIC #### [facility] [address] [address] [address] Nunu Borges Epithelial cells LM Ql (Urine sed) FEW Abnormal NONE SEEN /RARE [facility] Comment on above: Performed By: #### U AMIC #### [facility] [address] [address] [address] Nunu Borges Glucose Ql (U) Negative Normal NEGATIVE [facility] Comment on above: Performed By: #### U AMIC #### [facility] [address] [address] [address] Nunu Borges Hemoglobin Ql (U) Negative Normal NEGATIVE [facility] Comment on above: Performed By: #### U AMIC #### [facility] [address] [address] [address] Nunu Borges Ketones Ql (U) Negative Normal NEGATIVE [facility] Comment on above: Performed By: #### U AMIC #### [facility] [address] [address] [address] Nunu Borges LEUKOCYTES SMALL Abnormal NEGATIVE [facility] Comment on above: Performed By: #### U AMIC #### [facility] [address] [address] [address] Nunu Borges MUCOUS NONE SEEN Normal NONE SEEN [facility] Comment on above: Performed By: #### U AMIC #### [facility] [address] [address] [address] Nunu Borges Nitrite Ql (U) Negative Normal NEGATIVE [facility] Comment on above: Performed By: #### U AMIC #### [facility] [address] [place] [address] Dr. Nunu Borges pH (U) 7.0 [pH] Normal 5-9 [facility] Comment on above: Performed By: #### U AMIC #### [facility] [address] [place] [address] Dr. Nunu Borges RBC NONE SEEN Abnormal 0-2 [facility] Comment on above: Performed By: #### U AMIC #### [facility] [address] [place] [address] Dr. Nunu Borges SPEC GRAVITY 1.010 Normal 1.005-<=1. 025 [facility] Comment on above: Performed By: #### U AMIC #### [facility] [address] [address] [address] Nunu Borges UA PROTEIN Negative Normal NEGATIVE/ TRACE [facility] Comment on above: Performed By: #### U AMIC #### [facility] [address] [place] [address] Dr. Nunu Borges Urobilinogen Qn (U) 0.2 {Myriam'U}/dL Normal 0.2 - 1. 0 [facility] Comment on above: Performed By: #### U AMIC #### [facility] [address] [place] [address] Dr. Nunu Borges WBC 5-10 Abnormal NONE SEEN [facility] Comment on above: Performed By: #### U AMIC #### [facility] [address] [place] [address] Dr. Nunu Borges FERRITINon 02-13-2022 Ferritin [Mass/Vol] 72.0 ng/mL Normal 8.0-252.0 [facility] Comment on above: Performed By: #### U TIFFANIE, MG, RENAL #### [facility] [address] [place] [address] Dr. Nunu Borges GLYCOHEMOGLOBIN A1Con 2021 ADA RECOMMENDATION SEE BELOW Normal [facility] Comment on above: Result Comment: ADA RECOMMENDED LIMIT 4.0 - 6.0 ADA THERAPEUTIC TARGET < 7.0 ACTION SUGGESTED > 7.0 Performed By: #### A 1C #### [facility] [address] [address] [address] Nunu Borges Glucose [Mass/Vol] 143 mg/dL Normal [facility] Comment on above: Performed By: #### A 1C #### [facility] [address] [place] [address] Dr. Nunu Borges HbA1c (Bld) [Mass fraction] 6.6 % Critically high 4.5-6.2 [facility] Comment on above: Performed By: #### A 1C #### [facility] [address] [place] [address] Dr. Nunu Borges HEMOGRAM AND PLATELon 2021 Hematocrit (Bld) [Volume fraction] 36.1 % Normal 36.0-48.0 [facility] Comment on above: Performed By: #### U TIFFANIE, MG, RENAL #### [facility] [address] [place] [address] Dr. Nunu Borges Hemoglobin (Bld) [Mass/Vol] 11.5 g/dL Critically low 12.0-16.0 [facility] Comment on above: Performed By: #### U TIFFANIE, MG, RENAL #### [facility] [address] [place] [address] Dr. Nunu Borges MCH (RBC) [Entitic mass] 29.1 pg Normal 26.7-34.0 [facility] Comment on above: Performed By: #### U TIFFANIE, MG, RENAL #### [facility] [address] [place] [address] Dr. Nunu Borges MCHC (RBC) [Mass/Vol] 31.9 g/dL Normal 29.9-35.2 [facility] Comment on above: Performed By: #### U TIFFANIE, MG, RENAL #### [facility] [address] [address] [address] Nunu Borges MCV (RBC) [Entitic vol] 91.4 fL Normal 81.0-99.0 [facility] Comment on above: Performed By: #### U TIFFANIE, MG, RENAL #### [facility] [address] [address] [address] Nunu Borges PLT 348 103/ul Normal 150-450 [facility] Comment on above: Performed By: #### U TIFFANIE, MG, RENAL #### [facility] [address] [address] [address] Nunu Borges RBC 3.95 106/ul Critically low 4.20-5.40 [facility] Comment on above: Performed By: #### U TIFFANIE, MG, RENAL #### [facility] [address] [address] [address] Nunu Borges WBC 4.4 103/ul Normal 4.0-11.0 [facility] Comment on above: Performed By: #### U TIFFANIE, MG, RENAL #### [facility] [address] [address] [address] Nunu Borges IRON AND TIBCon 02-13-2022 % SATURATION 17.1 % Normal [facility] Comment on above: Performed By: #### U TIFFANIE, MG, RENAL #### [facility] [address] [address] [address] Nunu Borges Iron [Mass/Vol] 56.0 ug/dL Normal 50.0-170.0 [facility] Comment on above: Performed By: #### U TIFFANIE, MG, RENAL #### [facility] [address] [address] [address] Nunu Borges TIBC DIRECT 327.0 ug/dL Normal 250.0-450. 0 [facility] Comment on above: Performed By: #### U TIFFANIE, MG, RENAL #### [facility] [address] [address] [address] Nunu Borges MAGNESIUMon 02-13-2022 Magnesium [Mass/Vol] 1.8 mg/dL Normal 1.8-2.4 [facility] Comment on above: Performed By: #### U TIFFANIE, MG, RENAL #### [facility] [address] [address] [address] Nunu Borges RENAL FUNCTION PANELon 02-13 Albumin [Mass/Vol] 3.7 g/dL Normal 3.4-5.0 [facility] Comment on above: Performed By: #### U TIFFANIE, MG, RENAL #### [facility] [address] [place] [address] Dr. Nunu Borges Calcium [Mass/Vol] 9.4 mg/dL Normal 8.5-10.1 [facility] Comment on above: Performed By: #### U TIFFANIE, MG, RENAL #### [facility] [address] [place] [address] Dr. Nunu Borges Chloride [Moles/Vol] 100 mmol/L Normal 98-107 [facility] Comment on above: Performed By: #### U TIFFANIE, MG, RENAL #### [facility] [address] [place] [address] Dr. Nunu Borges CO2 [Moles/Vol] 30.0 mmol/L Normal 21.0-32.0 [facility] Comment on above: Performed By: #### U TIFFANIE, MG, RENAL #### [facility] [address] [place] [address] Dr. Nunu Borges Creatinine [Mass/Vol] 1.31 mg/dL Critically high 0.55-1.02 [facility] Comment on above: Performed By: #### U TIFFANIE, MG, RENAL #### [facility] [address] [place] [address] Dr. Nunu Borges EGFR-AF BELGIAN 49 mL/min/1.73m2 Critically low >=60 [facility] Comment on above: Performed By: #### U TIFFANIE, MG, RENAL #### [facility] [address] [place] [address] Dr. Nunu Borges EGFR-NON AF BELGIAN 40 mL/min/1.73m2 Critically low >=60 [facility] Comment on above: Performed By: #### U TIFFANIE, MG, RENAL #### [facility] [address] [place] [address] Dr. Nunu Borges Glucose [Mass/Vol] 98 mg/dL Normal 74-106 [facility] Comment on above: Performed By: #### U TIFFANIE, MG, RENAL #### [facility] [address] [place] [address] Dr. Nunu Borges Phosphate [Mass/Vol] 3.0 mg/dL Normal 2.6-4.7 [facility] Comment on above: Performed By: #### U TIFFANIE, MG, RENAL #### [facility] [address] [place] [address] Dr. Nunu Borges Potassium [Moles/Vol] 4.4 mmol/L Normal 3.5-5.1 [facility] Comment on above: Performed By: #### U TIFFANIE, MG, RENAL #### [facility] [address] [place] [address] Dr. Nunu Borges Sodium [Moles/Vol] 133 mmol/L Critically low 136-145 [facility] Comment on above: Performed By: #### U TIFFANIE, MG, RENAL #### [facility] [address] [place] [address] Dr. Nunu Borges Urea nitrogen [Mass/Vol] 23.0 mg/dL Critically high 7.0-18.0 [facility] Comment on above: Performed By: #### U TIFFANIE, MG, RENAL #### [facility] [address] [place] [address] Dr. Nunu Borges URIC ACID SERUMon 02-13-2022 Urate [Mass/Vol] 5.9 mg/dL Normal 2.6-6.0 [facility] Comment on above: Performed By: #### U TIFFANIE, MG, RENAL #### [facility] [address] [place] [address] Dr. Nunu Borges VITAMIN D 25 OHon 02-13-2022 VIT D 25-OH 70.3 ng/mL Normal [facility] Comment on above: Performed By: #### U TIFFANIE, MG, RENAL #### [facility] [address] [place] [address] Dr. Nunu Borges VIT D RANGES SEE BELOW Normal [facility] Comment on above: Result Comment: <20 ng/mL Vit D deficient 20 - <30 ng/mL Vit D insufficient 30 - 100 ng/mL Vit D sufficient >100 ng/mL Potential Toxicity Performed By: #### U TIFFANIE, MG, RENAL #### [facility] [address] [place] [address] Dr. Nunu Borges CBC AUTO DIFFon 01-27-2022 BASO # 0.0 103/ul Normal 0.0-0.1 [facility] Comment on above: Performed By: #### U TIFFANIE, MG, RENAL #### [facility] [address] [place] [address] Dr. Nunu Borges Basophils/100 WBC (Bld) 0.2 % Normal 0.2-2.0 [facility] Comment on above: Performed By: #### U TIFFANIE, MG, RENAL #### [facility] [address] [place] [address] Dr. Nunu Borges EO # 0.1 103/ul Normal 0.0-0.7 [facility] Comment on above: Performed By: #### U TIFFANIE, MG, RENAL #### [facility] [address] [place] [address] Dr. Nunu Borges Eosinophils/100 WBC (Bld) 0.9 % Normal 0.9-7.0 [facility] Comment on above: Performed By: #### U TIFFANIE, MG, RENAL #### [facility] [address] [place] [address] Dr. Nunu Borges Erythrocyte distribution width (RBC) [Ratio] 12.5 % Normal 11.0-15.0 [facility] Comment on above: Performed By: #### U TIFFANIE, MG, RENAL #### [facility] [address] [place] [address] Dr. Nunu Borges Hematocrit (Bld) [Volume fraction] 32.5 % Critically low 36.0-48.0 [facility] Comment on above: Performed By: #### U TIFFANIE, MG, RENAL #### [facility] [address] [place] [address] Dr. Nunu Borges Hemoglobin (Bld) [Mass/Vol] 10.9 g/dL Critically low 12.0-16.0 [facility] Comment on above: Performed By: #### U TIFFANIE, MG, RENAL #### [facility] [address] [address] [address] Nunu Borges IG # 0.14 10e3/ul Critically high 0.00-0.03 [facility] Comment on above: Performed By: #### U TIFFANIE, MG, RENAL #### [facility] [address] [address] [address] Nunu Borges IG % 1.5 % Critically high 0.0-0.5 [facility] Comment on above: Performed By: #### U TIFFANIE, MG, RENAL #### [facility] [address] [address] [address] Nunu Borges LYMPH # 1.5 103/ul Normal 1.2-3.8 [facility] Comment on above: Performed By: #### U TIFFANIE, MG, RENAL #### [facility] [address] [address] [address] Nunu Borges Lymphocytes/100 WBC (Bld) 15.5 % Critically low 20.5-60.0 [facility] Comment on above: Performed By: #### U TIFFANIE, MG, RENAL #### [facility] [address] [address] [address] Nunu Borges MANUAL DIFF REQ NO Normal [facility] Comment on above: Performed By: #### U TIFFANIE, MG, RENAL #### [facility] [address] [address] [address] Nunu Borges MCH (RBC) [Entitic mass] 29.6 pg Normal 26.7-34.0 [facility] Comment on above: Performed By: #### U TIFFANIE, MG, RENAL #### [facility] [address] [address] [address] Nunu Borges MCHC (RBC) [Mass/Vol] 33.5 g/dL Normal 29.9-35.2 [facility] Comment on above: Performed By: #### U TIFFANIE, MG, RENAL #### [facility] [address] [address] [address] Nunu Borges MCV (RBC) [Entitic vol] 88.3 fL Normal 81.0-99.0 [facility] Comment on above: Performed By: #### U TIFFANIE, MG, RENAL #### [facility] [address] [place] [address] Dr. Nunu Borges MONO # 1.2 103/ul Critically high 0.3-0.8 [facility] Comment on above: Performed By: #### U TIFFANIE, MG, RENAL #### [facility] [address] [place] [address] Dr. Nunu Borges Monocytes/100 WBC (Bld) 12.9 % Critically high 1.7-12.0 [facility] Comment on above: Performed By: #### U TIFFANIE, MG, RENAL #### [facility] [address] [place] [address] Dr. Nunu Borges NEUT # 6.5 103/ul Normal 1.4-6.5 [facility] Comment on above: Performed By: #### U TIFFANIE, MG, RENAL #### [facility] [address] [place] [address] Dr. Nunu Borges Neutrophils/100 WBC (Bld) 69.0 % Normal 43.0-75.0 [facility] Comment on above: Performed By: #### U TIFFANIE, MG, RENAL #### [facility] [address] [place] [address] Dr. Nunu Borges Platelet mean volume (Bld) [Entitic vol] 11.8 fL Normal 9.5-13.5 [facility] Comment on above: Performed By: #### U TIFFANIE, MG, RENAL #### [facility] [address] [place] [address] Dr. Nunu Borges PLT 239 103/ul Normal 150-450 [facility] Comment on above: Performed By: #### U TIFFANIE, MG, RENAL #### [facility] [address] [place] [address] Dr. Nunu Borges RBC 3.68 106/ul Critically low 4.20-5.40 [facility] Comment on above: Performed By: #### U TIFFANIE, MG, RENAL #### [facility] [address] [place] [address] Dr. Nunu Borges WBC 9.4 103/ul Normal 4.0-11.0 [facility] Comment on above: Performed By: #### U TIFFANIE, MG, RENAL #### [facility] [address] [place] [address] Dr. Nunu Borges POINT OF CARE GLUCOSEon 01-08 Glucose [Mass/Vol] 226 mg/dL Critically high 74-106 [facility] Comment on above: Performed By: #### U TIFFANIE, MG, RENAL #### [facility] [address] [place] [address] Dr. Nunu Borges PROF CHEM 8 (BAS METB)on Anion gap [Moles/Vol] 10.5 mmol/L Normal [facility] Comment on above: Performed By: #### U TIFFANIE, MG, RENAL #### [facility] [address] [place] [address] Dr. Nunu Borges Calcium [Mass/Vol] 8.2 mg/dL Critically low 8.5-10.1 [facility] Comment on above: Performed By: #### U TIFFANIE, MG, RENAL #### [facility] [address] [place] [address] Dr. Nunu Borges Chloride [Moles/Vol] 103 mmol/L Normal 98-107 [facility] Comment on above: Performed By: #### U TIFFANIE, MG, RENAL #### [facility] [address] [place] [address] Dr. Nunu Borges CO2 [Moles/Vol] 26.0 mmol/L Normal 21.0-32.0 [facility] Comment on above: Performed By: #### U TIFFANIE, MG, RENAL #### [facility] [address] [place] [address] Dr. Nunu Borges Creatinine [Mass/Vol] 1.04 mg/dL Critically high 0.55-1.02 [facility] Comment on above: Performed By: #### U TIFFANIE, MG, RENAL #### [facility] [address] [address] [address] Nunu Borges EGFR-AF BELGIAN >60 Normal >=60 [facility] Comment on above: Performed By: #### U TIFFANIE, MG, RENAL #### [facility] [address] [address] [address] Nunu Borges EGFR-NON AF BELGIAN 53 mL/min/1.73m2 Critically low >=60 [facility] Comment on above: Performed By: #### U TIFFANIE, MG, RENAL #### [facility] [address] [address] [address] Nunu Borges Glucose [Mass/Vol] 91 mg/dL Normal 74-106 [facility] Comment on above: Performed By: #### U TIFFANIE, MG, RENAL #### [facility] [address] [address] [address] Nunu Borges Potassium [Moles/Vol] 3.5 mmol/L Normal 3.5-5.1 [facility] Comment on above: Performed By: #### U TIFFANIE, MG, RENAL #### [facility] [address] [address] [address] Nunu Borges Sodium [Moles/Vol] 136 mmol/L Normal 136-145 [facility] Comment on above: Performed By: #### U TIFFANIE, MG, RENAL #### [facility] [address] [address] [address] Nunu Borges Urea nitrogen [Mass/Vol] 32.0 mg/dL Critically high 7.0-18.0 [facility] Comment on above: Performed By: #### U TIFFANIE, MG, RENAL #### [facility] [address] [address] [address] Nunu Borges Urea nitrogen/Creatinine [Mass ratio] 30.8 mg/mg Normal [facility] Comment on above: Performed By: #### U TIFFANIE, MG, RENAL #### [facility] [address] [address] [address] Nunu Borges CBC AUTO DIFFon 01-26-2022 BASO # 0.0 103/ul Normal 0.0-0.1 [facility] Comment on above: Performed By: #### C BC #### [facility] [address] [place] [address] Dr. Nunu Borges Basophils/100 WBC (Bld) 0.1 % Critically low 0.2-2.0 [facility] Comment on above: Performed By: #### C BC #### [facility] [address] [place] [address] Dr. Nunu Borges EO # 0.1 103/ul Normal 0.0-0.7 [facility] Comment on above: Performed By: #### C BC #### [facility] [address] [place] [address] Dr. Nunu Borges Eosinophils/100 WBC (Bld) 0.4 % Critically low 0.9-7.0 [facility] Comment on above: Performed By: #### C BC #### [facility] [address] [place] [address] Dr. Nunu Borges Erythrocyte distribution width (RBC) [Ratio] 12.2 % Normal 11.0-15.0 [facility] Comment on above: Performed By: #### C BC #### [facility] [address] [place] [address] Dr. Nunu Borges Hematocrit (Bld) [Volume fraction] 36.7 % Normal 36.0-48.0 [facility] Comment on above: Performed By: #### C BC #### [facility] [address] [place] [address] Dr. Nunu Borges Hemoglobin (Bld) [Mass/Vol] 12.1 g/dL Normal 12.0-16.0 [facility] Comment on above: Performed By: #### C BC #### [facility] [address] [place] [address] Dr. Nunu Borges IG # 0.42 10e3/ul Critically high 0.00-0.03 [facility] Comment on above: Performed By: #### C BC #### [facility] [address] [place] [address] Dr. Nunu Borges IG % 2.4 % Critically high 0.0-0.5 [facility] Comment on above: Performed By: #### C BC #### [facility] [address] [place] [address] Dr. Nunu Borges LYMPH # 0.8 103/ul Critically low 1.2-3.8 [facility] Comment on above: Performed By: #### C BC #### [facility] [address] [place] [address] Dr. Nunu Borges Lymphocytes/100 WBC (Bld) 4.5 % Critically low 20.5-60.0 [facility] Comment on above: Performed By: #### C BC #### [facility] [address] [place] [address] Dr. Nunu Borges MANUAL DIFF REQ NO Normal [facility] Comment on above: Performed By: #### C BC #### [facility] [address] [place] [address] Dr. Nunu Borges MCH (RBC) [Entitic mass] 29.2 pg Normal 26.7-34.0 [facility] Comment on above: Performed By: #### C BC #### [facility] [address] [place] [address] Dr. Nunu Borges MCHC (RBC) [Mass/Vol] 33.0 g/dL Normal 29.9-35.2 [facility] Comment on above: Performed By: #### C BC #### [facility] [address] [place] [address] Dr. Nunu Borges MCV (RBC) [Entitic vol] 88.6 fL Normal 81.0-99.0 [facility] Comment on above: Performed By: #### C BC #### [facility] [address] [place] [address] Dr. Nunu Borges MONO # 1.4 103/ul Critically high 0.3-0.8 [facility] Comment on above: Performed By: #### C BC #### [facility] [address] [place] [address] Dr. Nunu Borges Monocytes/100 WBC (Bld) 7.6 % Normal 1.7-12.0 [facility] Comment on above: Performed By: #### C BC #### [facility] [address] [place] [address] Dr. Nunu Borges NEUT # 15.0 103/ul Critically high 1.4-6.5 [facility] Comment on above: Performed By: #### C BC #### [facility] [address] [place] [address] Dr. Nunu Borges Neutrophils/100 WBC (Bld) 85.0 % Critically high 43.0-75.0 [facility] Comment on above: Performed By: #### C BC #### [facility] [address] [place] [address] Dr. Nunu Borges Platelet mean volume (Bld) [Entitic vol] 11.5 fL Normal 9.5-13.5 [facility] Comment on above: Performed By: #### C BC #### [facility] [address] [place] [address] Dr. Nunu Borges PLT 277 103/ul Normal 150-450 [facility] Comment on above: Performed By: #### C BC #### [facility] [address] [place] [address] Dr. Nunu Borges RBC 4.14 106/ul Critically low 4.20-5.40 [facility] Comment on above: Performed By: #### C BC #### [facility] [address] [place] [address] Dr. Nunu Borges WBC 17.7 103/ul Critically high 4.0-11.0 [facility] Comment on above: Performed By: #### C BC #### [facility] [address] [place] [address] Dr. Nunu Borges CULTURE BLOODon 01-26-2022 Microscopic examination of blood, culture Culture Observations: NO GROWTH AT 5 DAYS. Normal [facility] Comment on above: Performed By: #### U AMIC #### [facility] [address] [place] [address] Dr. Nunu Borges Microscopic examination of blood, culture Culture Observations: NO GROWTH AT 5 DAYS. Normal [facility] Comment on above: Performed By: #### U AMIC #### [facility] [address] [place] [address] Dr. Nunu Borges CULTURE URINEon 01-26-2022 CULTURE URINE Culture Observations : LIGHT GROWTH OF MIXED GENITAL GABRIELLE. NO POTENTIAL PATHOGENS SEEN. Normal [facility] Comment on above: Performed By: #### U AMIC #### [facility] [address] [place] [address] Dr. Nunu Borges Covid-19 PCR (CVDTB)on 01-08 SARS-CoV-2 (COVID-19) RNA GREG+probe Ql (Unsp spec) Detected Critically abnormal NOT DETECTED [facility] Comment on above: Result Comment: This test is not yet approved or cleared by the [place] FDA. When there are no FDA-approved or cleared tests available, and other criteria are met, FDA can make tests available under an emergency access mechanism called an Emergency Use Authorization (EUA). The EUA for this test is supported by the [place] of Health and Human Service's declaration that [...] used). Performed By: #### C VDTBH #### [facility] [address] [place] [address] Dr. Nunu Borges ER URINE PROFILEon Bilirubin Ql (U) Negative Normal NEGATIVE [facility] Comment on above: Performed By: #### U AMIC #### [facility] [address] [place] [address] Dr. Nunu Borges Clarity (U) CLEAR Normal CLEAR [facility] Comment on above: Performed By: #### U AMIC #### [facility] [address] [place] [address] Dr. Nunu Borges Color (U) LT. YELLOW Normal YELLOW [facility] Comment on above: Performed By: #### U AMIC #### [facility] [address] [address] [address] Nunu MEZA A micrscopic examina tion will be performed if indicated. Normal [facility] Comment on above: Performed By: #### U AMIC #### [facility] [address] [address] [address] Nunu Borges Glucose Ql (U) Negative Normal NEGATIVE [facility] Comment on above: Performed By: #### U AMIC #### [facility] [address] [address] [address] Nunu Borges Hemoglobin Ql (U) Negative Normal NEGATIVE [facility] Comment on above: Performed By: #### U AMIC #### [facility] [address] [address] [address] Nunu Borges Ketones Ql (U) Negative Normal NEGATIVE [facility] Comment on above: Performed By: #### U AMIC #### [facility] [address] [address] [address] Nunu Borges LEUKOCYTES MODERATE Abnormal NEGATIVE [facility] Comment on above: Performed By: #### U AMIC #### [facility] [address] [address] [address] Nunu Borges Nitrite Ql (U) Negative Normal NEGATIVE [facility] Comment on above: Performed By: #### U AMIC #### [facility] [address] [address] [address] Nunu Borges pH (U) 6.0 [pH] Normal 5-9 [facility] Comment on above: Performed By: #### U AMIC #### [facility] [address] [address] [address] Nunu Borges SPEC GRAVITY 1.010 Normal 1.005-<=1. 025 [facility] Comment on above: Performed By: #### U AMIC #### [facility] [address] [address] [address] Nunu Borges UA PROTEIN Negative Normal NEGATIVE/ TRACE [facility] Comment on above: Performed By: #### U AMIC #### [facility] [address] [address] [address] Nunu Borges UR MICRO IND INDICATED Normal [facility] Comment on above: Performed By: #### U AMIC #### [facility] [address] [address] [address] Nunu Borges Urobilinogen Qn (U) 0.2 {Myriam'U}/dL Normal 0.2 - 1. 0 [facility] Comment on above: Performed By: #### U AMIC #### [facility] [address] [address] [address] Nunu Borges POINT OF CARE GLUCOSEon 10-2 Glucose [Mass/Vol] 262 mg/dL Critically high 74-106 [facility] Comment on above: Performed By: #### U TIFFANIE, MG, RENAL #### [facility] [address] [place] [address] Dr. Nunu Borges PROF CHEM 8 (BAS METB)on Anion gap [Moles/Vol] 18.7 mmol/L Normal [facility] Comment on above: Performed By: #### U AMIC #### [facility] [address] [address] [address] Nunu Borges Calcium [Mass/Vol] 9.0 mg/dL Normal 8.5-10.1 [facility] Comment on above: Performed By: #### U AMIC #### [facility] [address] [address] [address] Nunu Borges Chloride [Moles/Vol] 95 mmol/L Critically low 98-107 [facility] Comment on above: Performed By: #### U AMIC #### [facility] [address] [address] [address] Nunu Borges CO2 [Moles/Vol] 20.6 mmol/L Critically low 21.0-32.0 [facility] Comment on above: Performed By: #### U AMIC #### [facility] [address] [address] [address] Nunu Borges Creatinine [Mass/Vol] 1.79 mg/dL Critically high 0.55-1.02 [facility] Comment on above: Performed By: #### U AMIC #### [facility] [address] [address] [address] Nunu Borges EGFR-AF BELGIAN 21 mL/min/1.73m2 Critically low >=60 [facility] Comment on above: Performed By: #### U AMIC #### [facility] [address] [address] [address] Nunu Borges EGFR-NON AF BELGIAN 18 mL/min/1.73m2 Critically low >=60 [facility] Comment on above: Performed By: #### U AMIC #### [facility] [address] [address] [address] Nunu Borges Glucose [Mass/Vol] 261 mg/dL Critically high 74-106 [facility] Comment on above: Performed By: #### U AMIC #### [facility] [address] [address] [address] Nunu Borges Potassium [Moles/Vol] 4.3 mmol/L Normal 3.5-5.1 [facility] Comment on above: Performed By: #### U AMIC #### [facility] [address] [address] [address] Nunu Borges Sodium [Moles/Vol] 130 mmol/L Critically low 136-145 [facility] Comment on above: Performed By: #### U AMIC #### [facility] [address] [address] [address] Nunu Borges Urea nitrogen [Mass/Vol] 54.0 mg/dL Critically high 7.0-18.0 [facility] Comment on above: Performed By: #### U AMIC #### [facility] [address] [address] [address] Nunu Borges Urea nitrogen/Creatinine [Mass ratio] 30.2 mg/mg Normal [facility] Comment on above: Performed By: #### U AMIC #### [facility] [address] [id number] Nunu Borges URINE MICROSCOPIC ONLYon BACTERIA TRACE Abnormal NONE SEEN [facility] Comment on above: Performed By: #### U AMIC #### [facility] [address] [place] [address] Dr. Nunu Borges Bacteria identified Cx Nom (U) INDICATED Normal [facility] Comment on above: Performed By: #### U AMIC #### [facility] [address] [place] [address] Dr. Nunu Borges CAST SEEN Abnormal NONE SEEN [facility] Comment on above: Performed By: #### U AMIC #### [facility] [address] [place] [address] Dr. Nunu Borges Crystals LM Nom (Urine sed) NONE SEEN Normal NONE SEEN [facility] Comment on above: Performed By: #### U AMIC #### [facility] [address] [place] [address] Dr. Nunu Borges Epithelial cells LM Ql (Urine sed) RARE Normal NONE SEEN /RARE [facility] Comment on above: Performed By: #### U AMIC #### [facility] [address] [place] [address] Dr. Nunu Borges HYALINE CAST RARE Normal [facility] Comment on above: Performed By: #### U AMIC #### [facility] [address] [place] [address] Dr. Nunu Borges MUCOUS NONE SEEN Normal NONE SEEN [facility] Comment on above: Performed By: #### U AMIC #### [facility] [address] [place] [address] Dr. Nunu Borges RBC 0-2 Normal 0-2 [facility] Comment on above: Performed By: #### U AMIC #### [facility] [address] [place] [address] Dr. Nunu Borges WBC 2-5 Abnormal NONE SEEN [facility] Comment on above: Performed By: #### U AMIC #### [facility] [address] [place] [address] Dr. Nunu Borges Covid-19 PCR (CVDTB)on 01-07 SARS-CoV-2 (COVID-19) RNA GREG+probe Ql (Unsp spec) Detected Critically abnormal NOT DETECTED [facility] Comment on above: Result Comment: This test is not yet approved or cleared by the [place] FDA. When there are no FDA-approved or cleared tests available, and other criteria are met, FDA can make tests available under an emergency access mechanism called an Emergency Use Authorization (EUA). The EUA for this test is supported by the [place] of Health and Human Service's declaration that [...] for this test is supported by the [place] of Health and Human Service's (HHS's) declaration [...] longer be used). Performed By: #### C [facility] #### [facility] [address] [place] [address] Dr. Nunu Borges MG MAMM SCREEN 3D RODERICK CADon 01-09-2022 MG MAMM SCREEN 3D RODERICK CAD Patient: DOUG COURTNEY Exam Date: 01/09/2022 : 1955 Gender:F Ordering : DR ROMULO ALVAREZ . Admission #: [id number] Family : Order #: [id number] CLICK HERE TO VIEW EXAM RADIOLOGY REPORT [...] Treatments None Family Cancers None LOCATION: [facility] BREAST COMPOSITION: Almost entirely fatty. FINDINGS: [...] Fox MD on 01/09/2022 at 12:50 Normal [facility] Cytologyon 07-20-2020 Cytology (NOTE) INTERPRETATION Cervical material, (ThinPrep vial, Imaging-assisted review): Specimen Adequacy: Satisfactory for evaluation. - Endocervical/transformat ion zone component present. Descriptive Diagnosis: Negative for intraepithelial lesion or malignancy. Nursing Home Assistant Administrator: CARLOS Steward(ASCP) Electronically Signed Out chris/07/22/2020 Source: 1: Cervical material, (ThinPrep vial, Imaging-assisted review) Clinical History Postmenopausal Z12.4 Encounter for screening for malignant neoplasm of cervix GYNECOLOGIC CYTOLOGY REPORT Patient Name: DOUG COURTNEY Med Rec: [id number] Path Number: [id number] M[facility]ATOM[facility] PATHOLOG[facility] [address] [place] [id number] Normal [facility] Comment on above: Performed By: #### P PPVP #### [facility] [address] [place] [id number] Sheriffs Officer: Jeremiah Acosta MD Main OR Intraoperative Recor handy 11-06-2017 Main OR Intraoperative Record IntraOp Document Type FTURO Summary Primary Physician: Juan Delarosa Jr., MD Finalized Date/Time: 11/06/17 12:28:35 Pt. Name: DOUG COURTNEYO.B./Sex: 1955 Female Med Rec #: [id number] Physician: Juan Delarosa Jr., MD Financial #: [id number] Pt. Type: O Room/Bed: / Admit/Disch: 10/11/17 12:38:00 - 10/11/17 23:59:00 Institution: Case Times FTURO Entry 1 Patient Times In Room 10/11/17 13:16:00 Out Room 10/11/17 13:22:00 Procedure Times Start 10/11/17 13:18:00 Stop 10/11/17 13:21:00 Anesthesia Times Last Modified By: SAAD Simons RNORKeerthi 10/11/17 13:21:50 Case Attendance FTURO Entry 1 Entry 2 Entry 3 Case Attendee SAAD Simons RNOR, Keerthi Islas [facility], Juan Mccann Jr., MD Role Performed Python Engineer - Primary Scrub - Primary Surgeon - Primary Time In 10/11/17 13:16:00 10/11/17 13:16:00 10/11/17 13:18:00 Time Out 10/11/17 13:22:00 10/11/17 13:22:00 10/11/17 13:22:00 Procedure CYSTOSCOPY LOCAL(.) CYSTOSCOPY LOCAL(.) CYSTOSCOPY LOCAL(.) Comments Last Modified By: SAAD Simons RNORKeerthi RN, CNORKeerthi RN, CNOR, Keerthi Matthew 10/11/17 [...] Medication Time Out Washington Bennett MD, Juan iRos, Verified (If Participants KIET Simons RN, Lou Applicable) Janel Matthew CST, [place] Time Out Complete 10/11/17 13:18:00 Allergies Reviewed? Yes Allergies Reviewed Self/Patient With Body Position Frog Legged Prep Area PERINIUM Prep Agents Betadine Solution Skin. Condition Intact, [place], Warm, and Dry Additional None Specimens Collected [...] Simons RN, Lou Ann 11/06/17 12:28 Normal [facility] Main OR Preoperative Recordo n 11-06-2017 Main OR Preoperative Record Holding Area Document Type FTURO Summary Primary Physician: Juan Delarosa Jr., MD Finalized Date/Time: 11/06/17 12:28:41 Pt. Name: DOUG COURTNEY/Sex: 1955 Female Med Rec #: [id number] Physician: Juan Delarosa Jr., MD Financial #: [id number] Pt. Type: O Room/Bed: / Admit/Disch: 10/11/17 [...] of Pain: No Comment: Skin Integrity Intact, [place], Warm, & Dry Vitals - EU Blood Pressure 98/55 Pulse 76 bpm Respirations 18 br/min SPO2 RN Reviewed Yes Last Modified By: KIET Simons RN, Lou Ann 10/11/17 13:00:54 Finalized By: KIET Simons RN, Lou Ann Document Signatures Signed By: KIET Simons RN, Lou Ann 10/11/17 13:00 Karen Rutherford LPN 10/11/17 12:58 KIET Simons RN, Lou Ann 11/06/17 12:28 Normal [facility] Coding Summary.on 10-19-2017 Coding Summary. CODING DATE: 018 FINAL [facility] STATUS: Home (Routine DC) PAYOR: Commercial [...] disease N18.9 Chronic kidney disease, unspecified Z79.82 alf (current) use of aspirin Z87.891 Personal history of nicotine dependence PYMT PROC APC STAT DESCRIPTION DOCTOR NAME DATE NOTE: The code number assigned matches the documented diagnosis and / or procedure in the patient's chart. However, the narrative phrase printed from the coding software may appear abbreviated, or result in slightly different terminology. Coded By: Ellie Saldaña Date Saved: 10/19/2017 08:52 am [facility] Operative Reporton 8 Operative Report Patient: Rebeca COURTNEY Age: 61 years Sex: Female : 1955 Associated Diagnoses: None Author: Washington Bennett MD, Juan Rios Procedure Operative Information Details: Date/ Time: 10/11/17 13:25:00. 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 Post-Op Dx: Same. Anesthesia Type: Local. Procedure: Local Cystoscopy with Urethral Dilation. Complications: None. Risks/Benefits/Informed Consent: Surgical risks, benefits, details of the [...] urine. The Urethra was dilated to: 30 Swiss w/ sounds. Devices Implanted: None. Removal: Cystoscope [...] negative. This completes her hematuria workup.. Normal [facility] Comment on above: Result Comment: Elec tronically Signed By: Washington Bennett MD, Juan King.dany\Date and Time Signed: 10/11/17 13:26 EDT Vital Signs Date Time Vital Sign Value Performing Clinician Facility 01-09-2025 10:50-0400 Body height 172.7 cm Vianey Geronimo DPM Work Phone: [facility] 01-09-2025 10:50-0400 Body mass index (BMI) [Ratio] 23.11 kg/m2 Vianey Geronimo DPM Work Phone: [facility] 01-09-2025 10:50-0400 Body weight 68.95 kg Vianey Geronimo DPM Work Phone: [facility] 10-09-2024 08:20-0400 Body temperature 97.9 [degF] Romulo Alvarez MD Work Phone: [facility] 10-09-2024 08:20-0400 Diastolic blood pressure 73 mm[Hg] Romulo Alvarez MD Work Phone: [facility] 10-09-2024 08:20-0400 Heart rate 67 /min Romulo Alvarez MD Work Phone: [facility] 10-09-2024 08:20-0400 Respiratory rate 18 /min Romulo Alvarez MD Work Phone: [facility] 10-09-2024 08:20-0400 SaO2% (BldA) [Mass fraction] 99 % Romulo Alvarez MD Work Phone: [facility] 10-09-2024 08:20-0400 Systolic blood pressure 117 mm[Hg] Romulo Alvarez MD Work Phone: [facility] 10-09-2024 06:13-0400 Body weight 70.9 kg Romulo Alvarez MD Work Phone: [facility] 10-07-2024 12:35-0400 Body height 172.72 cm Romulo Alvarez MD Work Phone: [facility] 09-29-2024 18:14-0400 Inhaled oxygen flow rate 8 L/min Romulo Alvarez MD Work Phone: [facility] 08-28-2024 11:15-0400 Body height 172.72 cm Romulo Alvarez MD Work Phone: [facility] 08-28-2024 11:15-0400 Body mass index (BMI) [Ratio] 22.8 kg/m2 Romulo Alvarez MD Work Phone: [facility] 08-28-2024 11:15-0400 Body weight 68.2 kg Romulo Alvarez MD Work Phone: [facility] 08-28-2024 11:15-0400 Diastolic blood pressure 75 mm[Hg] Romulo Alvarez MD Work Phone: [facility] 08-28-2024 11:15-0400 Heart rate 67 /min Romulo Alvarez MD Work Phone: [facility] 08-28-2024 11:15-0400 Respiratory rate 16 /min Romluo Alvarez MD Work Phone: [facility] 08-28-2024 11:15-0400 SaO2% (BldA) [Mass fraction] 97 % Romulo Alvarez MD Work Phone: [facility] 08-28-2024 11:15-0400 Systolic blood pressure 141 mm[Hg] Romulo Alvarez MD Work Phone: [facility] 08-19-2024 15:42-0400 Body height 172.7 cm Vianey Melton DPM Work Phone: [facility] 08-19-2024 15:42-0400 Body mass index (BMI) [Ratio] 21.9 kg/m2 Vianey HALLM Work Phone: [facility] [facility] 08-19-2024 15:42-0400 Body weight 65.32 kg Vianey HALLM Work Phone: [facility] 08-06-2024 11:30-0400 Body height 154.94 cm Romulo Alvarez MD Work Phone: [facility] 08-06-2024 11:30-0400 Body mass index (BMI) [Ratio] 27.8 kg/m2 Romulo Alvarez MD Work Phone: [facility] 08-06-2024 11:30-0400 Body weight 66.67 kg Romulo Alvarez MD Work Phone: [facility] 02-28-2024 13:17-0500 Body height 172.7 cm Romulo Alvarez MD Work Phone: [facility] 02-28-2024 13:17-0500 Body mass index (BMI) [Ratio] 23.11 kg/m2 Romulo Alvarez MD Work Phone: [facility] 02-28-2024 13:17-0500 Body temperature 97.11 [degF] Romulo Alvarez MD Work Phone: [facility] 02-28-2024 13:17-0500 Body weight 68.95 kg Romulo Alvarez MD Work Phone: [facility] 02-28-2024 13:17-0500 Diastolic blood pressure 80 mm[Hg] Romulo Alvarez MD Work Phone: [facility] 02-28-2024 13:17-0500 Heart rate 85 /min Romulo Alvarez MD Work Phone: [facility] 02-28-2024 13:17-0500 Respiratory rate 22 /min Romulo Alvarez MD Work Phone: [facility] 02-28-2024 13:17-0500 SaO2% (BldA) [Mass fraction] 98 % Romulo Alvarez MD Work Phone: [facility] 02-28-2024 13:17-0500 Systolic blood pressure 136 mm[Hg] Romulo Alvarez MD Work Phone: [facility] 01-31-2024 12:34-0400 Body mass index (BMI) [Ratio] 28.7 kg/m2 [facility] 01-31-2024 12:34-0400 Diastolic blood pressure 74 mm[Hg] [facility] 01-31-2024 12:34-0400 Systolic blood pressure 122 mm[Hg] [facility] 01-31-2024 11:12-0400 Body height 154.94 cm [facility] 01-31-2024 11:12-0400 Body temperature 96.8 [degF] [facility] 01-31-2024 11:12-0400 Body weight 69 kg [facility] 01-31-2024 11:12-0400 Heart rate 85 /min [facility] 01-31-2024 11:12-0400 Respiratory rate 18 /min [facility] 01-31-2024 11:12-0400 SaO2% (BldA) [Mass fraction] 98 % [facility] 01-10-2024 08:45-0400 Body height 172.7 cm Vianey Melton DPM Work Phone: [facility] 01-10-2024 08:45-0400 Body mass index (BMI) [Ratio] 22.66 kg/m2 Vianey Melton DPM Work Phone: [facility] 01-10-2024 08:45-0400 Body weight 67.59 kg Vianey Melton DPM Work Phone: [facility] 12-11-2023 13:17-0400 Body height 172.7 cm Romulo Alvarez MD Work Phone: [facility] 12-11-2023 13:17-0400 Body mass index (BMI) [Ratio] 22.2 kg/m2 Romulo Alvarez MD Work Phone: [facility] 12-11-2023 13:17-0400 Body temperature 97.11 [degF] Romulo Alvarez MD Work Phone: [facility] 12-11-2023 13:17-0400 Body weight 66.22 kg Romulo Alvarez MD Work Phone: [facility] 12-11-2023 13:17-0400 Diastolic blood pressure 64 mm[Hg] Romulo Alvarez MD Work Phone: [facility] 12-11-2023 13:17-0400 Heart rate 77 /min Romulo Alvarez MD Work Phone: [facility] 12-11-2023 13:17-0400 Respiratory rate 20 /min Romulo Alvarez MD Work Phone: [facility] 12-11-2023 13:17-0400 SaO2% (BldA) [Mass fraction] 96 % Romulo Alvarez MD Work Phone: [facility] 12-11-2023 13:17-0400 Systolic blood pressure 122 mm[Hg] Romulo Alvarez MD Work Phone: [facility] 09-19-2023 10:12-0400 Body height 172.7 cm [facility] 2 [facility] 09-19-2023 10:12-0400 Body mass index (BMI) [Ratio] 26.15 kg/m2 Pm 2 [facility] 09-19-2023 10:12-0400 Body weight 78.02 kg Pm 2 [facility] 04-05-2023 10:00-0500 Body height 154.94 cm Ghislaine Ada Other [facility] Other 04-05-2023 10:00-0500 Body mass index (BMI) [Ratio] 29.85 kg/m2 Ghislaine Ada Other [facility] Other 04-05-2023 10:00-0500 Body temperature 97.2 [degF] Ghislaine Ada Other [facility] Other 04-05-2023 10:00-0500 Body weight 71.67 kg Ghislaine Ada Other [facility] Other 04-05-2023 10:00-0500 Diastolic blood pressure 60 mm[Hg] Ghislaine Ada Other [facility] Other 04-05-2023 10:00-0500 Respiratory rate 18 /min Ghislaine Ada Other [facility] Other 04-05-2023 10:00-0500 SaO2% (BldA) [Mass fraction] 98 % Ghislaine Ada Other [facility] Other 04-05-2023 10:00-0500 Systolic blood pressure 124 mm[Hg] Ghislaine Ada Other [facility] Other 09-07-2022 14:00-0400 Body height 154.94 cm Ghislaine Ada Other [facility] Other 09-07-2022 14:00-0400 Body mass index (BMI) [Ratio] 29.47 kg/m2 Ghislaine Ada Other [facility] Other 09-07-2022 14:00-0400 Body temperature 97.3 [degF] Ghislaine Ada Other [facility] Other 09-07-2022 14:00-0400 Body weight 70.76 kg Ghislaine Ada Other [facility] Other 09-07-2022 14:00-0400 Diastolic blood pressure 70 mm[Hg] Ghislaine Ada Other [facility] Other 09-07-2022 14:00-0400 Respiratory rate 18 /min Ghislaine Ada Other [facility] Other 09-07-2022 14:00-0400 SaO2% (BldA) [Mass fraction] 97 % Ghislaine Ada Other [facility] Other 09-07-2022 14:00-0400 Systolic blood pressure 110 mm[Hg] Ghislaine Ada Other [facility] Other 03-23-2022 11:20-0500 Body height 154.94 cm Ghislaine Ada Other [facility] Other 03-23-2022 11:20-0500 Body mass index (BMI) [Ratio] 28.75 kg/m2 Ghislaine Ada Other [facility] Other 03-23-2022 11:20-0500 Body temperature 96.2 [degF] Ghislaine Ada Other [facility] Other 03-23-2022 11:20-0500 Body weight 69.04 kg Ghislaine Ada Other [facility] Other 03-23-2022 11:20-0500 Diastolic blood pressure 80 mm[Hg] Ghislaine Ada Other [facility] Other 03-23-2022 11:20-0500 Respiratory rate 18 /min Ghislaine Ada Other [facility] Other 03-23-2022 11:20-0500 SaO2% (BldA) [Mass fraction] 96 % Ghislaine Ada Other [facility] Other 03-23-2022 11:20-0500 Systolic blood pressure 122 mm[Hg] Ghislaine Ada Other [facility] Other 09-01-2021 11:00-0400 Body height 154.94 cm Ghislaine Ada Other [facility] Other 09-01-2021 11:00-0400 Body mass index (BMI) [Ratio] 31.29 kg/m2 Ghislaine Ada Other [facility] Other 09-01-2021 11:00-0400 Body temperature 96.8 [degF] Ghislaine Ada Other [facility] Other 09-01-2021 11:00-0400 Body weight 75.12 kg Ghislaine Ada Other [facility] Other 09-01-2021 11:00-0400 Diastolic blood pressure 74 mm[Hg] Ghislaine Ada Other [facility] Other 09-01-2021 11:00-0400 Respiratory rate 18 /min Ghislaine Ada Other [facility] Other 09-01-2021 11:00-0400 SaO2% (BldA) [Mass fraction] 97 % Ghislaine Ada Other [facility] Other 09-01-2021 11:00-0400 Systolic blood pressure 130 mm[Hg] Ghislaine Ada Other [facility] Other 02-10-2021 10:20-0400 Body height 154.94 cm Ghislaine Ada Other [facility] Other 02-10-2021 10:20-0400 Body mass index (BMI) [Ratio] 30.83 kg/m2 Ghislaine Ada Other [facility] Other 02-10-2021 10:20-0400 Body temperature 96 [degF] Ghislaine Ada Other [facility] Other 02-10-2021 10:20-0400 Body weight 74.03 kg Ghislaine Ada Other [facility] Other 02-10-2021 10:20-0400 Diastolic blood pressure 74 mm[Hg] Ghilsaine Ada Other [facility] Other 02-10-2021 10:20-0400 Respiratory rate 18 /min Ghislaine Ada Other [facility] Other 02-10-2021 10:20-0400 SaO2% (BldA) [Mass fraction] 94 % Ghislaine Ada Other [facility] Other 02-10-2021 10:20-0400 Systolic blood pressure 110 mm[Hg] Ghislaine Ada Other [facility] Other Encounters Encounter Date Encounter Type Care Provider Facility Start: 01-09-2025 End: 01-09-2025 Optimalize.meantionette Melton DPM Work Phone: [facility] Start: 01-09-2025 End: 01-09-2025 [employer]ent[employer] LUMI Maskheet Vianey Melton DPM Work Phone: [facility] Start: 01-09-2025 End: 01-09-2025 Patient encounter procedure Vianey Melton DPM Work Phone: [facility] Comment on above: Ingrown nail (Primar y Dx); Type II or unspecified type diabetes mellitus with neurological manifestations, not stated as uncontrolled(250.60) ([facility]); Onychomycosis; Pain in toes of both feet Start: 12-29-2024 End: 12-29-2024 ambulatory Romulo Alvarez MD Work Phone: [facility] Work Phone: Start: 12-29-2024 End: 12-29-2024 Patient encounter procedure Chano Larson MD -[facility] Work Phone: Start: 12-24-2024 End: 12-24-2024 ambulatory Romulo Alvarez MD Work Phone: [facility] Work Phone: Start: 12-24-2024 End: 12-24-2024 Patient encounter procedure Bakari Fernandez MD -[facility] Work Phone: Start: 12-24-2024 End: 12-24-2024 [facility] encounter [facility] Start: 12-24-2024 End: 12-24-2024 ambulatory Romulo Alvarez MD Work Phone: [facility] Work Phone: Start: 12-02-2024 End: 12-02-2024 Refill Romulo Alvarez MD Work Phone: [facility] Comment on above: Degeneration of inte rvertebral disc of lumbar region with discogenic back pain Start: 11-12-2024 End: 11-12-2024 ambulatory Romulo Alvarez MD Work Phone: [facility] Work Phone: Start: 11-12-2024 End: 11-12-2024 Patient encounter procedure Bakari Fernandez MD -[facility] Work Phone: Start: 11-12-2024 End: 11-12-2024 Patient encounter procedure Bakari Fernandez MD -[facility] Start: 11-12-2024 End: 11-12-2024 ambulatory Romulo Alvarez MD Work Phone: [facility] Work Phone: Start: 11-04-2024 End: 11-04-2024 Refill Romulo Alvarez MD Work Phone: [facility] Comment on above: Degeneration of inte rvertebral disc of lumbar region with discogenic back pain Start: 10-15-2024 End: 10-15-2024 ambulatory Romulo Alvarez MD Work Phone: [facility] Work Phone: Start: 10-15-2024 End: 10-15-2024 Patient encounter procedure Bakari Fernandez MD -[facility] Work Phone: Start: 10-13-2024 Non-patient / Non-visit Bakari Fernandez MD -[facility] Work Phone: Start: 10-06-2024 End: 10-06-2024 Refill Romulo Alvarez MD Work Phone: [facility] Comment on above: Degeneration of inte rvertebral disc of lumbar region with discogenic back pain Start: 10-06-2024 Non-patient / Non-visit Bakari Fernandez MD -[facility] Work Phone: Start: 09-29-2024 End: 10-09-2024 ambulatory Bakari Rodriguez II Facility:[facility] Start: 09-29-2024 Non-patient / Non-visit Fernie Quinn MD -[facility] Work Phone: Start: 09-25-2024 End: 09-26-2024 Refill Romulo Alvarez MD Work Phone: [facility] Comment on above: Degeneration of inte rvertebral disc of lumbar region with discogenic back pain Start: 09-19-2024 End: 09-19-2024 Patient encounter procedure Bakari Fernandez MD -[facility] Work Phone: Start: 09-17-2024 End: 09-17-2024 Patient encounter procedure Romulo Alvarez MD Work Phone: [facility] Work Phone: Start: 09-17-2024 Registered Recurring Romulo prieto MD Work Phone: [facility] Start: 09-17-2024 End: 10-07-2024 ambulatory Romulo Alvarez MD Work Phone: [facility] Work Phone: Start: 09-17-2024 Encounter for other preprocedural examination Bakari Rodriguez II [facility] Start: 09-15-2024 End: 09-15-2024 Patient encounter procedure Romulo Alvarez MD Work Phone: [facility] Work Phone: Start: 09-15-2024 End: 09-15-2024 ambulatory Romulo Alvarez MD Work Phone: [facility] Work Phone: Start: 09-15-2024 Encounter for preprocedural laboratory examination Bakari Rodriguez II [facility] Start: 08-28-2024 End: 08-28-2024 ambulatory Romulo Alvarez MD Work Phone: [facility] Work Phone: Start: 08-28-2024 End: 08-28-2024 Patient encounter procedure Romulo Alvarez MD Work Phone: [facility] Work Phone: Start: 08-21-2024 End: 08-21-2024 Clinisync Result Encounter Generic External Data Provider [facility] External Department Unsolicited Start: 08-21-2024 End: 08-21-2024 Clinisync Result Encounter Generic External Data Provider [facility] External Department Unsolicited Start: 08-21-2024 Non-patient / Non-visit Romulo lal MD Work Phone: [facility] Work Phone: Start: 08-19-2024 End: 08-19-2024 ambulatory VIANEY MELTON Not Available Start: 08-19-2024 End: 08-19-2024 Office outpatient visit 15 minutes Vianey Melton DPM Work Phone: [facility] Comment on above: 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, not stated as uncontrolled(250.60) (CMS/[facility]) (Primary Dx); Nail dystrophy; Onychomycosis; Pain in toes of both feet Start: 08-19-2024 End: 08-19-2024 Bamboo flowsheet Vianey Melton DPM Work Phone: [facility] Start: 08-19-2024 End: 08-19-2024 Bamboo flowsheet Vianey Melton DPM Work Phone: [facility] Start: 08-06-2024 End: 08-06-2024 ambulatory Romulo Alvarez MD Work Phone: [facility] Work Phone: Start: 08-06-2024 End: 08-06-2024 Patient encounter procedure Romulo Alvarez MD Work Phone: [facility] Work Phone: Start: 08-03-2024 End: 08-04-2024 Refill Romulo Alvarez MD Work Phone: [facility] Comment on above: Degeneration of inte rvertebral disc of lumbar region with discogenic back pain Start: 07-23-2024 End: 07-23-2024 Telephone encounter Jr. Brock C Stepanic DO Work Phone: [facility] Comment on above: Medicine Start: 07-22-2024 End: 07-22-2024 Bamboo flowsheet Jr. Brock Crandall Stepanic DO Work Phone: [facility] Start: 07-22-2024 End: 07-22-2024 Bamboo flowsheet JrBerry Crandall Stepanic DO Work Phone: [facility] Start: 07-22-2024 End: 07-22-2024 Office outpatient visit 15 minutes Jr. Brock Crandall Stepbelen DO Work Phone: [facility] Comment on above: Primary osteoarthrit is of left hip (Primary Dx); Left hip pain Start: 07-22-2024 End: 07-22-2024 ambulatory JR., BROCK KUMAR Not Available Start: 07-18-2024 End: 07-18-2024 Telephone encounter JrBerry Kumar DO Work Phone: [facility] Comment on above: Hip Start: 07-09-2024 End: 07-09-2024 Refill Romulo Alvarez MD Work Phone: [facility] Comment on above: Degeneration of inte rvertebral disc of lumbar region with discogenic back pain Start: 07-06-2024 End: 07-07-2024 Refill Romulo Alvarez MD Work Phone: [facility] Comment on above: KENZIE (generalized anx iety disorder) (CMS/HCC); Degeneration of intervertebral disc of lumbar region with discogenic back pain Start: 06-10-2024 End: 06-10-2024 Refill Romulo Alvarez MD Work Phone: [facility] Comment on above: Degeneration of inte rvertebral disc of lumbar region with discogenic back pain Start: 06-03-2024 End: 06-04-2024 Refill Romulo Alvarez MD Work Phone: [facility] Comment on above: Degeneration of inte rvertebral disc of lumbar region with discogenic back pain Start: 05-06-2024 End: 05-06-2024 Clinisync Result Encounter Romulo Alvarez MD Work Phone: [facility] External Department Unsolicited Start: 05-06-2024 End: 05-06-2024 Clinisync Result Encounter Romulo Alvarez MD Work Phone: [facility] External Department Unsolicited Start: 05-04-2024 End: 05-05-2024 [...] encounter procedure Romulo Alvarez MD Work Phone: [facility] Work Phone: Start: 02-28-2024 End: 02-28-2024 Postop follow up visit related to original px Romulo Alvarez MD Work Phone: [facility] Comment on above: Medicare annual well ness visit, subsequent (Primary Dx); Type 2 diabetes mellitus with hyperglycemia, without long-term current use of insulin (CMS/HCC); Benign essential hypertension (CMS/HCC); CKD stage 3a, GFR 45-59 ml/min ([facility]); Dyslipidemia ([facility]); Encounter for long-term current use of medication; Breast cancer screening by mammogram Start: 02-28-2024 End: 02-28-2024 ambulatory ROMULO ALVAREZ Not Available Start: 02-12-2024 End: 02-13-2024 Refill Romulo Alvarez MD Work Phone: [facility] Comment on above: Degeneration of inte rvertebral disc of lumbar region with discogenic back pain Start: 01-31-2024 End: 01-31-2024 ambulatory [facility] Work Phone: Start: 01-31-2024 End: 01-31-2024 Patient encounter procedure [facility] Work Phone: Start: 01-14-2024 End: 01-14-2024 Office outpatient visit 25 minutes Jr. Brock Kumar DO Work Phone: [facility] Comment on above: Primary osteoarthrit is of left hip (Primary Dx) Start: 01-14-2024 End: 01-14-2024 ambulatory BROCK BENNETT Not Available Start: 01-12-2024 End: 01-14-2024 Refill Romulo Alvarez MD Work Phone: [facility] Comment on above: Degeneration of inte rvertebral disc of lumbar region with discogenic back pain (Primary Dx) Start: 01-11-2024 End: 01-11-2024 Clinisync Result Encounter Generic External Data Provider [facility] External Department Unsolicited Start: 01-11-2024 End: 01-11-2024 Clinisync Result Encounter Generic External Data Provider [facility] External Department Unsolicited Start: 01-11-2024 Non-patient / Non-visit [facility] Work Phone: Start: 01-10-2024 End: 01-10-2024 Bamboo flowsheet Vianey Melton DPM Work Phone: [facility] Start: 01-10-2024 End: 01-10-2024 Bamboo flowsheet Vianey Melton DPM Work Phone: [facility] Start: 01-10-2024 End: 01-10-2024 Patient encounter procedure Vianey Melton DPM Work Phone: [facility] Comment on above: Nail dystrophy (Prim vipin Dx); Onychomycosis; Type II or unspecified type diabetes mellitus with neurological manifestations, not stated as uncontrolled(250.60) (CMS/HCC); Pain in toes of both feet Start: 01-10-2024 End: 01-10-2024 ambulatory VIANEY MELTON Not Available Start: 12-14-2023 End: 01-03-2024 Telephone encounter Vianey Edgar MA [facility] Start: 12-13-2023 End: 12-13-2023 Refill Romulo Alvarez MD Work Phone: [facility] Comment on above: Essential (primary) hypertension (CMS/HCC); Other intervertebral disc degeneration, lumbar region; Age-related osteoporosis without current pathological fracture (CMS/HCC) Start: 12-11-2023 End: 12-11-2023 Bamboo flowsheet Romulo Alvarez MD Work Phone: [facility] Start: 12-11-2023 End: 12-11-2023 Bamboo flowsheet Romulo Alvarez MD Work Phone: [facility] Start: 12-11-2023 End: 12-11-2023 ambulatory ROMULO ALVAREZ Not Available Start: 12-11-2023 End: 12-11-2023 Office outpatient visit 25 minutes Romulo Alvarez MD Work Phone: [facility] Comment on above: Type 2 diabetes [...] Preoperative state Romulo Alvarez MD Work Phone: [facility] Start: 10-18-2023 End: 10-18-2023 ambulatory SHAIKH JACQUI Not Available Start: 10-09-2023 End: 10-09-2023 ambulatory ROMULO ALVAREZ [facility] Start: 10-01-2023 End: 10-01-2023 ambulatory SHARONA E RAMBASEK Not Available Start: 09-26-2023 End: 09-26-2023 ambulatory SHARONA E RAMBASEK Not Available Start: 09-25-2023 Preoperative state Romulo lisa MD Work Phone: [facility] [employer] Start: 09-25-2023 End: 09-25-2023 ambulatory ROMULO ALVAREZ Not Available Start: 09-24-2023 End: 09-24-2023 ambulatory SHARONA E RAMBASEK Not Available Start: 09-20-2023 End: 09-20-2023 ambulatory ARIANNA GUY Not Available Start: 09-19-2023 End: 09-19-2023 ambulatory [facility] Start: 09-19-2023 End: 09-19-2023 ambulatory [facility] Start: 09-19-2023 Encounter for other preprocedural examination [facility] Start: 09-19-2023 End: 09-19-2023 Patient encounter procedure [facility] Pre-Admission Testing 2 [facility] - Pre Admit Comment on above: Preop examination (P rimary Dx); Hypertension, unspecified type; Type 2 diabetes mellitus without complication, without long-term current use of insulin ([facility]); Urinary frequency; Former smoker; Osteoarthritis of left hip, unspecified osteoarthritis type Start: 09-19-2023 End: 09-19-2023 Preprocedural examination done Pm 2 [facility] Start: 04-05-2023 End: 04-05-2023 ambulatory Ghislaine Kirkpatrick Other [facility] Other Start: 04-05-2023 Office outpatient vi sit 25 minutes Ghislaine Ada [facility] Start: 09-07-2022 End: 09-07-2022 ambulatory Ghislaine Ada Other [facility] Other Start: 09-07-2022 Office outpatient vi sit 15 minutes Ghislaine Ada [facility] Start: 08-31-2022 End: 09-01-[address] ROMULO ALVAREZ Facility:[facility] Start: 08-18-2022 End: 08-19-[address] ROMULO ALVAREZ Facility:[facility] Start: 07-26-2022 End: 07-26-[address] ROMULO ALVAREZ Facility:[facility] Start: 07-18-2022 End: 07-18-2022 ambulatory Ghislaine Ada Other [facility] Other Start: 07-18-2022 Telephone encounter Ghislaine Ada [facility] Start: 03-23-2022 End: 03-23-2022 ambulatory Ghislaine Ada Other [facility] Other Start: 03-23-2022 Office outpatient vi sit [...] 09-13-2021 End: 09-13-2021 ambulatory Ghislaine Ada Other [facility] Other Start: 09-13-2021 Telephone encounter Ghislaine Ada [facility] Start: 09-01-2021 End: 09-01-2021 ambulatory Ghislaine Ada Other [facility] Other Start: 09-01-2021 Office outpatient vi sit 25 minutes Ghislaine Ada [facility] Start: 09-01-2021 Telephone encounter Ghislaine Ada [facility] Start: 08-22-2021 End: 08-22-2021 ambulatory Ghislaine Ada Other [facility] Other Start: 08-22-2021 Telephone encounter Ghislaine Ada [facility] Start: 08-15-2021 End: 08-15-2021 ambulatory Ghislaine Ada Other [facility] Other Start: 08-15-2021 Telephone encounter Ghislaine Ada [facility] Start: 05-24-2021 End: 05-24-2021 ambulatory Ghislaine Ada Other [facility] Other Start: 05-24-2021 Telephone encounter Ghislaine Ada [facility] Start: 02-21-2021 End: 02-21-2021 ambulatory Ghislaine Ada Other [facility] Other Start: 02-21-2021 Telephone encounter Ghislaine Ada [facility] Start: 02-11-2021 End: 02-11-2021 ambulatory Ghislaine Ada Other [facility] Other Start: 02-11-2021 Telephone encounter Ghislaine Ada [facility] Start: 02-10-2021 End: 02-10-2021 ambulatory Ghislaine Ada Other [facility] [employer] Other Start: 02-10-2021 Office outpatient vi sit 25 minutes Kylie PALACIOS [facility] Start: 07-20-2020 End: 07-21-2020 Patient encounter procedure ROMULO ALVAREZ [facility] Start: 10-11-2017 End: 10-12-2017 Patient encounter Bakari eBrg Facility:[facility] Procedures Date Procedure Procedure Detail Performing Clinician Start: 12-24-2024 Plain X-ray of left hip Romulo Alvarez MD Work Phone: Start: 11-12-2024 Plain X-ray of left hip Romulo Alvarez MD Work Phone: Start: 09-29-2024 Antibody screen Romulo gonzalez Comment on above: Order Comment: JULIETH NT IS NOT IN ROOM RN NIALL SAID SHE WILL BE UP IN 15 MINUTES -[id number] Result Comment: PERF ORMED BY: [facility] [address] [facility] [place] [address] PATHOLOGIST SPECIMEN TRANSPORTER EDIN LANDIN M.D. Start: 08-21-2024 [facility] CBC WITH PLATEL ET NO DIFFERENTIAL Generic External Data Provider Start: 08-06-2024 Urine culture Romulo prieto MD Work Phone: Start: 08-06-2024 Plain X-ray of left hip Romulo Alvarez MD Work Phone: Start: 08-06-2024 X-ray of left knee, four views oRmulo Alvarez MD Work Phone: Start: 05-06-2024 MM [...] Activity Detail Author Start: 07-26-2032 Screening for malign ant neoplasm of colon [facility] Start: 07-27-2027 Screening for malign ant neoplasm of colon Colonoscopy [facility] [facility] Start: 05-12-2025 End: 05-12-2025 Patient encounter procedure 05/12/2025 10:00 AM EST Office Visit [facility] [address] [place] [phone] Vianey Melton, DPM [address] [place], [place] [phone] [facility] Start: 05-06-2025 Screening for malign ant neoplasm of breast Mammogram [facility] Start: 03-02-2025 End: 03-02-2025 Patient encounter procedure 03/02/2025 1:15 PM EST Office Visit [facility] [address] [place] [address] Romulo Alvarez MD [address] [place] [address] [facility] Start: 02-27-2025 Medicare Annual Well ness (AWV) Medicare Annual Wellness (AWV) [facility] Start: 02-19-2025 End: 02-19-2025 Patient encounter procedure 02/19/2025 8:45 AM EST Procedure Visit [facility] [address] [place] [phone] Vianey Melton, DPM [address] [place], [place] [phone] [facility] Start: 01-09-2025 End: 01-09-2025 Patient encounter procedure 01/09/2025 10:45 AM EDT Office Visit [facility] [address] [place] [phone] Vianey Melton, DPM [address] [place], [place] [phone] [facility] Comment on above: Arrived Start: 12-30-2024 End: 12-30-2024 Patient encounter procedure 12/30/2024 10:45 AM EDT Procedure Visit [facility] [address] [place] [phone] Vianey Melton, DPM [address] [place], [place] [phone] [facility] Start: 12-24-2024 Plain X-ray of left hip XR hip LT min 2V(w/wo pelvis)* [facility] Start: 12-24-2024 XR Hip - left 2 Views [facility] Start: 12-23-2024 End: 12-23-2024 Patient encounter procedure [facility] Start: 12-08-2024 Influenza vaccination N [facility] Start: 11-12-2024 Plain X-ray of left hip XR hip LT min 2V(w/wo pelvis)* [facility] Start: 11-12-2024 XR Hip - left 2 Views [facility] Start: 11-03-2024 Hemoglobin A1c measurement Diabetes: Hemoglobin A1C [facility] Start: 10-09-2024 [facility] Start: 09-29-2024 Hospital admission [facility] Start: 09-29-2024 Referral to rehabilitation physician [facility] Start: 09-26-2024 Urine screening for protein Diabetes: Urine Protein Screening [facility] Start: 09-18-2024 Adult BMI Screening Adult BMI Screen ing [facility] Start: 09-18-2024 Glaucoma screening Diabetes: R etinopathy Screening [facility] Start: 09-18-2024 Tobacco Screening Tobacco Screening [facility] Start: 09-15-2024 [facility] Start: 08-28-2024 End: 08-28-2024 Patient encounter procedure 08/28/2024 1:15 PM EDT Office Visit [facility] [address] [place] [address] Romulo Alvarez MD [address] [place] [address] [facility] Start: 08-06-2024 Bacteria identified in Urine by Culture Urine Culture [facility] Start: 08-06-2024 Urine culture [facility] Start: 08-06-2024 [facility] Start: 08-06-2024 Plain X-ray of left hip XR hip LT min 2V(w/wo pelvis)* [facility] Start: 08-06-2024 XR Hip - left 2 Views [facility] Start: 08-06-2024 X-ray of left knee, four views XR knee LT 4V* [facility] Start: 08-06-2024 XR Knee - left 4 Views [facility] Start: 07-22-2024 End: 07-22-2024 Patient encounter procedure [facility] Comment on above: Arrived Start: 06-24-2024 End: 06-24-2024 Patient encounter procedure 06/24/2024 9:30 AM EDT Office Visit [facility] [address] [place] [phone] Jr. Brock Kumar, DO [address] [place] [address] [facility] Start: 06-09-2024 End: 06-09-2024 Patient encounter procedure 06/09/2024 9:00 AM EST Office Visit [facility] [address] [place] [phone] Jr. Brock Kumar, DO [address] [place] [address] [facility] Start: 05-13-2024 End: 05-13-2024 Patient encounter procedure 05/13/2024 9:30 AM EST Procedure Visit [facility] [address] [place] [phone] Vianey Melton, DPM [address] [place] [address] [facility] Start: 03-26-2024 Screening for malign ant neoplasm of breast Mammogram [facility] Start: 03-20-2024 Hemoglobin A1c measurement Diabetes: Hemoglobin A1C [facility] Start: 02-28-2024 End: 02-27-2025 Basic metabolic 1998 panel - Serum or Plasma Basic metabolic panel Lab Routine CKD stage 3a, GFR 45-59 ml/min ([facility]) Encounter for long-term current use of medication Expected: 02/28/2024 (Approximate), Expires: 02/27/2025 [facility] Comment on above: Expected: 02/28/2024 (Approximate), Expires: 02/27/2025 Start: 02-28-2024 End: 02-27-2025 Hemoglobin A1c/Hemoglobin.total in Blood Hemoglobin A1c Lab Routine Type 2 diabetes mellitus with hyperglycemia, without long-term current use of insulin ([facility]) Expected: 02/28/2024 (Approximate), Expires: 02/27/2025 [facility] Work Phone: Comment on above: Expected: 02/28/2024 (Approximate), Expires: 02/27/2025 Start: 02-28-2024 End: 02-27-2025 Lipid 1996 panel - Serum or Plasma Lipid panel Lab Routine Dyslipidemia ([facility]) Expected: 02/28/2024 (Approximate), Expires: 02/27/2025 [facility] Comment on above: Expected: 02/28/2024 (Approximate), Expires: 02/27/2025 Start: 02-28-2024 End: 04-29-2025 MG Breast - bilateral Screening Bilateral screening mammogram Imaging Routine Breast cancer screening by mammogram Expected: 02/28/2024, Expires: 04/29/2025 [facility] Comment on above: Expected: 02/28/2024 , Expires: 04/29/2025 Start: 02-28-2024 End: 02-28-2024 Patient encounter procedure [facility] Comment on above: Arrived Start: 01-14-2024 End: 01-14-2024 Patient encounter procedure 01/14/2024 2:45 PM EDT Office Visit [facility] [address] [place] [address] Jr. Brock Kumar, DO [address] [facility] [address] [place] [address] [facility] Start: 01-10-2024 End: 01-10-2024 Patient encounter procedure [facility] Comment on above: Arrived Start: 12-20-2023 Hemoglobin A1c measurement Diabetes: Hemoglobin A1C [facility] Start: 12-11-2023 End: 12-10-2024 Bacteria identified in Urine by Culture Urine culture (clean catch) Microbiology Routine Recurrent UTI Expected: 12/11/2023 (Approximate), Expires: 12/10/2024 [facility] Work Phone: Comment on above: Expected: 12/11/2023 (Approximate), Expires: 12/10/2024 Start: 12-11-2023 End: 12-10-2024 Urinalysis complete panel - Urine Urinalysis with reflex microscopic (clean catch) Lab Routine Recurrent UTI Expected: 12/11/2023 (Approximate), Expires: 12/10/2024 [facility] Comment on above: Expected: 12/11/2023 (Approximate), Expires: 12/10/2024 Start: 12-09-2023 Influenza vaccination N [facility] Start: 10-16-2023 End: 10-16-2023 Admission to same day surgery center 10/16/2023 10:45 AM EDT - 10/16/2023 2:00 PM EDT Surgery [facility] - Surgery [address] [place] [address] Brock Kumar Jr., DO [address] [facility] [address] [place] [address] REPLACEMENT TOTAL JOINT HIP [51935 (CPT )] [facility] Comment on above: REPLACEMENT TOTAL SAL INT HIP [29341 (CPT )] Start: 10-16-2023 End: 10-16-2023 Arthrp acetblr/prox fem prostc agrft/algrft REPLACEMENT TOTAL JOINT HIP DJD L hip 10/16/2023 10:45 AM EDT [facility] Start: 10-16-2023 Subsequent hospital visit by physician 10/16/2023 10:45 AM EDT Hospital Encounter [facility] [address] [place] [address] Brock Kumar Jr., DO [address] [facility] [address] [place] [address] [facility] Start: 10-08-2023 End: 09-17-2024 Crossmatch RBC Crossmatch RBC Blood Bank Routine Preop examination Hypertension, unspecified type Type 2 diabetes mellitus without complication, without long-term current use of insulin ([facility]) Urinary frequency Former smoker Osteoarthritis of left hip, unspecified osteoarthritis type Expected: 10/08/2023, Expires: 09/17/2024 [facility] Comment on above: Expected: 10/08/2023 , Expires: 09/17/2024 Start: 09-19-2023 End: 09-17-2024 XR Femur and Tibia Views for leg length [facility] Comment on above: Expected: 09/19/2023 (Approximate), Expires: 09/17/2024 Start: 12-08-2022 COVID-19 Vaccine ( season) COVID-19 Vaccine ( season) [facility] Start: 2018 Fall Risk Screening Fall Risk Screen ing [facility] Start: 10-25-2003 Pneumococcal Vaccine : 65+ Years (1 of 1 - PCV) Pneumococcal Vaccine: 65+ Years (1 of 1 - PCV) [facility] Start: 1972 DTaP,Tdap and Td Vaccines (1 - Tdap) DTaP,Tdap and Td Vaccines (1 - Tdap) [facility] Start: 1972 Pneumococcal Vaccine : 65+ Years (1 of 2 - PCV) Pneumococcal Vaccine: 65+ Years (1 of 2 - PCV) [facility] Start: 1972 Urine screening for protein Diabetes: Urine Protein Screening [facility] Start: 10-25-1971 Adult BMI Follow Up Plan Adult BMI Follow Up Plan [facility] Start: 10-25-1971 Diabetic foot examination Diabetic Foot Exam [facility] Start: 1965 Depression Screening Depression Scre ening [facility] Start: 10-25-1963 Glaucoma screening Diabetes: R etinopathy Screening [facility] Start: 10-25-1959 Pneumococcal Vaccine : 65+ Years (1 of 2 - PCV) Pneumococcal Vaccine: 65+ Years (1 of 2 - PCV) [facility] Start: 1953 Glaucoma screening Diabetic Op hthalmology Exam [facility] Start: 1953 Medicare Annual Well ness (AWV) Medicare Annual Wellness (AWV) [facility] Start: 1953 Medicare Annual Well ness Visit Medicare Annual Wellness Visit [facility] Start: 1953 Screening for malign ant neoplasm of colon [facility] Start: 1953 Urine screening for protein Urine Microalbumin [facility] Cotinine [Mass/volum e] in Serum or Plasma [facility] Glucose measurement estimated from glycated hemoglobin [facility] Hemoglobin [Mass/vol ume] in Blood [facility] Hemoglobin A1c/Hemoglobin.total in Blood [facility] Nicotine [Mass/volum e] in Serum or Plasma [facility] Patient referral [facility] Work Phone: Renal function 1999 panel - Serum or Plasma [facility] Renal function 1999 panel - Serum or Plasma [facility] End: 09-17-2024 Type and screen(includes indirect raysa) Type and screen(includes indirect raysa) Blood Bank Routine Preop examination Hypertension, unspecified type Type 2 diabetes mellitus without complication, without long-term current use of insulin ([facility]) Urinary frequency Former smoker Osteoarthritis of left hip, unspecified osteoarthritis type 1 Occurrences starting 09/18/2023 until 09/17/2024 [facility] Work Phone: Comment on above: 1 Occurrences starti ng 09/18/2023 until 09/17/2024 XR Hip - left 3 Views XR hip lef t 2 or 3 views Imaging Routine Left hip pain 07/22/2024 10:59 AM EDT [facility] Work Phone: [facility] Payers Date Payer Category Payer Private Health Insurance [id number] 2021 Medicare (Managed Care) 1.2. [id number] 2021 Unknown [id number] 2020 Private Health Insurance [id number] 2020 Unknown [id number] 2.16.840 .1.364006.19 2017 Private Health Insurance [id number] 1959 Self-pay 1953 Unknown [id number] 2.16.8 40.1.832357.3.579.2.173 1953 Unknown [id number] 2.16.84 0.1.289915.3.579.2.593 1953 Unknown [id number] 2.16.84 0.1.553427.3.579.2.593 1953 Unknown [id number] 2.16.84 0.1.064360.3.579.2.593 1953 Unknown [id number] 2.16.84 0.1.291838.3.579.2.593 1953 Unknown [id number] 2.16.84 0.1.371382.3.579.2.593 1953 Unknown [id number] 2.16.84 0.1.176215.3.579.2.593 1953 Unknown [id number] 2.16.84 0.1.471723.3.579.2.593 1953 Unknown [id number] 2.16.84 0.1.676468.3.579.2.593 1953 Unknown [id number] 2.16.84 0.1.790177.3.579.2.593 1953 Unknown [id number] 2.16.84 0.1.402993.3.579.2.593 1953 Unknown [id number] 2.16.84 0.1.007141.3.579.2.593 1953 Unknown [id number] 2.16.8 40.1.136467.3.579.2.1286 1953 Unknown [id number] 2.16.8 40.1.515652.3.579.2.1286 1953 Unknown [id number] 2.16.8 40.1.673626.3.579.2.1286 1953 Unknown [id number] 2.16.8 40.1.923109.3.579.2.1286 1953 Unknown [id number] 2.16.8 40.1.580215.3.579.2.1286 1953 Unknown [id number] 2.16.8 40.1.567429.3.579.2.1286 1953 Unknown [id number] 2.16.84 0.1.784357.3.579.2.1259 1953 Unknown [id number] 2.16.84 0.1.121415.3.579.2.1259 1953 Unknown [id number] 2.16.84 0.1.419855.3.579.2.1259 1953 Unknown [id number] 2.16.84 0.1.788237.3.579.2.1258 1953 Unknown [id number] 2.16.84 0.1.431157.3.579.2.1258 1953 Unknown [id number] 2.16.84 0.1.568092.3.579.2.1258 1953 Unknown [id number] 2.16.84 0.1.303530.3.579.2.1258 1953 Unknown [id number] 2.16.84 0.1.816182.3.579.2.1258 1953 Unknown [id number] 2.16.84 0.1.150971.3.579.2.1258 1953 Unknown [id number] 2.16.84 0.1.403095.3.579.2.1258 1953 Unknown [id number] 2.16.84 0.1.669461.3.579.2.1258 1953 Unknown [id number] 2.16.84 0.1.423160.3.579.2.1258 1953 Unknown [id number] 2.16.84 0.1.016861.3.579.2.1258 1953 Unknown [id number] 2.16.84 0.1.933992.3.579.2.1258 1953 Unknown [id number] 2.16.84 0.1.558042.3.579.2.1259 Medicare [id number] 2. 16.840.1.909400.19 Unknown [id number] 2.16.84 0.1.591027.3.579.2.593 Unknown [id number] 2.16.8 40.1.677500.3.579.2.531 Unknown [id number] 2.16.8 40.1.450502.3.579.2.531 Unknown [id number] 2.16.8 40.1.709126.3.579.2.531 Unknown [id number] 2.16.8 40.1.886943.3.579.2.531 Unknown [id number] 2.16.8 40.1.897279.3.579.2.531 Unknown [id number] 2.16.8 40.1.018064.3.579.2.531 Social History Date Type Detail Facility Unknown if ever smoked [facility] Other Start: 12-11-2023 End: 02-28-2024 Sex Assigned At [facility] [employer] Other Start: 10-18-2023 End: 09-30-2024 Tobacco smoking status KSIS Ex-smoker [facility] End: 04-09-1977 History of tobacco use Current smoker [facility] End: 04-09-1977 History of tobacco use Cigarette Smoker [facility] History of tobacco use Passive smoker [facility] Start: 09-19-2023 End: 10-18-2023 Tobacco use and exposure Smokeless tobacco non-user [facility] Start: 12-11-2023 End: 01-09-2025 Alcoholic beverage intake Ex-drinker (finding) [facility] Start: 12-11-2023 End: 02-28-2024 History of Social function [facility] Start: 12-19-2022 Tobacco Comment Smoked for 2 years [facility] Start: 1955 Sex assigned at Not on file [facility] Start: 01-31-2024 Tobacco smoking stat [facility] Never smoked tobacco (finding) [facility] Start: 1955 Sex Assigned At Female [facility] Start: 09-19-2023 Alcoholic beverage intake Current non-drinker of alcohol (finding) [facility] Childcare Unknown [facility] Start: 08-06-2024 End: 09-17-2024 Sex Female (finding) [facility] Start: 10-04-2024 SDOH Follow up SDOH Follow up [facility] Work Phone: Medical Equipment Procedure Code Equipment Code Equipment Origin al Text Equipment Identifier Dates Arthroplasty, hip, total, anterior approach Orthopaedic cement, non-medicated [id number] FDA Start: 09-29-2024 Arthroplasty, hip, total, anterior approach Ceramic femoral head prosthesis ()[id number] FDA Start: 09-29-2024 Arthroplasty, hip, total, anterior approach Metallic acetabulum prosthesis ()[id number] FDA Start: 09-29-2024 Arthroplasty, hip, total, anterior approach Non-constrained polyethylene acetabular liner ()[id number] FDA Start: 09-29-2024 Arthroplasty, hip, total, anterior approach Uncoated hip femur prosthesis, modular ()[id number] FDA Start: 09-29-2024 Arthroplasty, hip, total, anterior approach Orthopaedic cement, non-medicated ()[id number] FDA Start: 09-29-2024 Arthroplasty, hip, total, anterior approach Acetabular shell ()[id number] FDA Start: 09-29-2024 Arthroplasty, hip, total, anterior approach Orthopaedic bone screw, non-bioabsorbable, sterile ()[id number] FDA Start: 09-29-2024 Arthroplasty, hip, total, anterior approach Orthopaedic bone screw, non-bioabsorbable, sterile ()[id number] FDA Start: 09-29-2024 Arthroplasty, hip, total, anterior approach Orthopaedic bone screw, non-bioabsorbable, sterile ()[id number] FDA Start: 09-29-2024 Arthroplasty, hip, total, anterior approach Orthopaedic bone screw, non-bioabsorbable, sterile ()[id number] FDA Start: 09-29-2024 Arthroplasty, hip, total, anterior approach Orthopaedic bone screw, non-bioabsorbable, sterile [id number] [facility] Start: 09-29-2024 Clinical Notes 12-27-2016 to 01-09-2025 Vianey Rey MeltonCHRISTINA - 01/09/2025 10:45 AM EDT Note Date & Type Note Facility 01-09-2025 History of Presen t illness Narrative Images from the original note were not included. Subjective Patient ID: Doug Courtney is a 69 y.o. female who presents for Ingrown Toenail (Doug Courtney is a 68 y.o. female who presents for Right great toenail ING pain, medial border.Patient called PCP, and was given Doxycycline 100MG 2x daily, started 01/02/2025 BS: 114 A1C: 5.2/LV Dr. Alvarez 08/11/2024 SS: 9.5). HPI Patient presents complaining of [...] mouth daily, Disp: 90 tablet, Rfl: 3 senna-docusate sodium (Senokot-S) 8.6-50 MG [...] and Affect: Mood normal. Behavior: Behavior normal. [address] Assessment/Plan ICD-10-CM 1. Ingrown nail L60.0 2. Type II or unspecified type diabetes mellitus with neurological manifestations, not stated as uncontrolled(250.60) ([facility]) E11.49 3. Onychomycosis B35.1 4. Pain in [...] nail debridement today. Advised patient of proper foot care to prevent any future complications. If the nail continues to be ingrown at this border, we discussed the possibility of a more permanent partial nail avulsion. Patient will plan to return in 4 months, she will call sooner if any problems [...] Vianey Melton DPM documented in this encounter [facility] 10-15-2024 Evaluation note Diagnosis Onset Date Resolution Aftercare following left hip joint replacement surgery acute October 15 1:41pm S/P total hip arthroplasty acute October 15, 2024 1 :41pm Aftercare following left hip joint replacement surgery acute November 12, 2024 1:20pm S/P total hip arthroplasty acute November 12, 2024 1:20pm Aftercare following left hip joint replacement surgery acute December 242024 2:22pm [facility] Work Phone: 1(695) 515-358506-23-2025 Evaluation note* Diagnosis Onset Date Resolution Status Admit Date Anemia of renal disease acute J une 2024 10:56am CKD (chronic kidney disease) stage 3, GFR 30-59 ml/min acute September 082024 10:56am Encephalopathy acute September 29, 2024 10:56am Hyperlipidemia acute September 29, 2024 10:56am Hypertension acute September 29, 10:56am Left hip pain acute September 29, 2024 10:56am Primary osteoarthritis of le ft hip acute September 29, 2024 10:56am S/P total hip arthroplasty acute September 29, 2024 10:56am Type 2 diabetes mellitus wit h diabetic chronic kidney disease acute September 29, 2024 10:56am Aftercare following left hip joint replacement surgery acute October 152024 1:41pm S/P total hip arthroplasty acute October 15, 2024 1:41pm Aftercare following left hip joint replacement surgery acute November 12, 2024 1:20pm S/P total hip arthroplasty acute November 12, 2024 1:20pm [facility] Work Phone: 1(351) 797-697606-23-2025 Evaluation note* Diagnosis Onset Date Resolution Status Admit Date Anemia of renal disease acute J une 2024 10:56am CKD (chronic kidney disease) stage 3, GFR 30-59 ml/min acute September 082024 10:56am Encephalopathy acute September 29, 2024 10:56am Hyperlipidemia acute September 29, 2024 10:56am Hypertension acute Sheyla 23rd, 2 025 10:56am Left hip pain acute September 29, 2024 10:56am Primary osteoarthritis of le ft hip acute September 29, 2024 10:56am S/P total hip arthroplasty acute September 29, 2024 10:56am Type 2 diabetes mellitus wit h diabetic chronic kidney disease acute September 29, 2024 10:56am Aftercare following left hip joint replacement surgery acute October 152024 1:41pm S/P total hip arthroplasty acute October 15, 2024 1:41pm Aftercare following left hip joint replacement surgery acute November 12, 2024 1:20pm S/P total hip arthroplasty acute November 12, 2024 1:20pm Aftercare following left hip joint replacement surgery acute 2024 2:22pm [facility] Work Phone: 1(914) 716-367506-20-2025 Telephone encounter Note* Telephone Encounter - Romulo Alvarez MD - 09/26/2024 11:24 AM EDT [id number] Miscellaneous Notes* Telephone Encounter - Romulo Alvarez MD - 09/26/2024 11:24 AM EDT [id number] Evaluation note* Diagnosis Onset Date Resolution Status Admit Date Anemia of renal disease acute M 2024 10:48am CKD (chronic kidney disease) stage 3, GFR 30-59 ml/min acute August 28 10:48am Hyperlipidemia acute August 28, 2024 10:48am Hypertensive chronic kidney disease with stage 1 through stage 4 chronic ki acute August 28, 2024 10:48am Secondary hyperparathyroidism acute August 28, 2024 10:48am Type 2 diabetes mellitus wit h diabetic chronic kidney disease acute August 28, 2024 10:48am Primary osteoarthritis of left hip a cute September 17, 2024 2:31pm Anemia of renal disease acute J une 2024 10:56am CKD (chronic kidney disease) stage 3, GFR 30-59 ml/min acute September 29, 025 10:56am Encephalopathy acute September 29, 2024 10:56am Hyperlipidemia acute September 29, 2024 10:56am Hypertension acute September 29 10:56am Left hip pain acute September 29, 2024 10:56am Primary osteoarthritis of left hip a cute September 29, 2024 10:56am S/P total hip arthroplasty acute September 29, 2024 10:56am Type 2 diabetes mellitus wit h diabetic chronic kidney disease acute September 29, 2024 10:56am Aftercare following left hip joint replacement surgery acute October 15 1:41pm S/P total hip arthroplasty acute October 15, 2024 1:41pm Aftercare following left hip joint replacement surgery acute November 12, 2024 1:20pm S/P total hip arthroplasty acute November 12, 2024 1:20pm [facility] Work Phone: 1(299) 957-873705-13-2025 History of Present illness Narrative* Vianey Melton DPM - 08/19/2024 3:30 PM EDT Images from the original note were not included. Subjective Patient ID: Doug Courtney is a 68 y.o. female who presents for Nail care (Doug Courtney is a 68y.o. female who presents for DM Foot Care. BS: 114 A1C: 5.2/LV Dr. Alvarez 02/27/2025 SS: 9.5). HPI Patient presents complaining of elongated, thick, fungal nails. She missed her last appointment dueto a hospitalization. She is hoping to have [...] by mouth daily, Disp: 90tablet, Rfl: 3 oxyCODONE-acetaminophen (Percocet) 10-325 MG tablet, Take 1 tablet by mouth 4 (four) times a day asneeded for severe pain or moderate pain, Disp: [...] and Affect: Mood normal. Behavior: Behavior normal. [id number] Assessment/Plan ICD-10-CM 1. Nail dystrophy L60.3 2. [...] dry in-between the toes after each bath orshower gently. They are to refrain from going [...] spaces inspected and found to be free ofdisease and ulceration. Shoes inspected and hygiene discussed. [...] understanding. Vianey Melton DPM documented in this encounterLiberty [id number] Evaluation note* Diagnosis Onset Date Resolution Status Admit Date Primary osteoarthritis of le ft hip acute August 06, 2024 11:01am [facility] Work Phone: 1(833) 676-188204-30-2025 Evaluation note* Diagnosis Onset Date Resolution Status Admit Date Primary osteoarthritis of left hip a cute August 06, 2024 11:01am Anemia of renal disease acute M 2024 10:48am CKD (chronic kidney disease) stage 3, GFR 30-59 ml/min acute August 28 10:48am Hyperlipidemia acute August 28, 2024 10:48am Hypertensive chronic kidney disease with stage 1 through stage 4 chronic ki acute August 28, 2024 10:48am Secondary hyperparathyroidism acute August 28, 2024 10:48am Type 2 diabetes mellitus wit h diabetic chronic kidney disease acute August 28, 2024 10:48am [facility] Work Phone: 1(935) 629-409704-30-2025 Evaluation note* Diagnosis Onset Date Resolution Status Admit Date Primary osteoarthritis of left hip a cute August 06, 2024 11:01am Anemia of renal disease acute M ay 2024 10:48am CKD (chronic kidney disease) stage 3, GFR 30-59 ml/min acute August 28 10:48am Hyperlipidemia acute August 28, 2024 10:48am Hypertensive chronic kidney disease with stage 1 through stage 4 chronic ki acute August 28, 2024 10:48am Secondary hyperparathyroidism acute August 28, 2024 10:48am Type 2 diabetes mellitus wit h diabetic chronic kidney disease acute August 28, 2024 10:48am Primary osteoarthritis of left hip a cute September 17, 2024 2:31pm Anemia of renal disease acute J une 2024 10:56am CKD (chronic kidney disease) stage 3, GFR 30-59 ml/min acute September 29, 025 10:56am Encephalopathy acute September 29, 2024 10:56am Hyperlipidemia acute September 29, 2024 10:56am Hypertension acute September 29, 025 10:56am Left hip pain acute September 29, 2024 10:56am Primary osteoarthritis of left hip a cute September 29, 2024 10:56am S/P total hip arthroplasty acute September 29, 2024 10:56am Type 2 diabetes mellitus wit h diabetic chronic kidney disease acute September 29, 2024 10:56am [facility] Work Phone: 1(625) 241-664704-30-2025 Evaluation note* Diagnosis Onset Date Resolution Status Admit Date Primary osteoarthritis of left hip a cute August 06, 2024 11:01am Anemia of renal disease acute M ay 2024 10:48am CKD (chronic kidney disease) stage 3, GFR 30-59 ml/min acute August 28 10:48am Hyperlipidemia acute August 28, 2024 10:48am Hypertensive chronic kidney disease with stage 1 through stage 4 chronic ki acute August 28, 2024 10:48am Secondary hyperparathyroidism acute August 28, 2024 10:48am Type 2 diabetes mellitus wit h diabetic chronic kidney disease acute August 28, 2024 10:48am Primary osteoarthritis of left hip a cute September 17, 2024 2:31pm Anemia of renal disease acute J une 2024 10:56am CKD (chronic kidney disease) stage 3, GFR 30-59 ml/min acute September 29, 025 10:56am Encephalopathy acute September 29, 2024 10:56am Hyperlipidemia acute September 29, 2024 10:56am Hypertension acute September 29 10:56am Left hip pain acute September 29, 2024 10:56am Primary osteoarthritis of left hip a cute September 29, 2024 10:56am S/P total hip arthroplasty acute September 29, 2024 10:56am Type 2 diabetes mellitus wit h diabetic chronic kidney disease acute September 29, 2024 10:56am Aftercare following left hip joint replacement surgery acute October 15 1:41pm S/P total hip arthroplasty acute October 15, 2024 1:41pm [facility] Work Phone: 1([phone]) 656-775604-16-2025 Telephone encounter Note* Telephone Encounter - Anisa Magallanes - 07/23/2024 3:22 PM EDT Patient called and wanted Dr. Kumar to know that she got a prescription for cough medicine, taking it twice a day. [facility] [id number] Miscellaneous Notes* Telephone Encounter - Anisa Magallanes - 07/23/2024 3:22 PM EDT Patient called and wanted Dr. Kumar to know that she got a prescription for cough medicine, taking it twice a day. documented in this encounterLiberty HospitalKbenbsezku89-68-2222 History of Present illness Narrative* Jr. Brock Kumar, - 07/22/2024 10:45 AM EDT Images from the original note were not included. HISTORY OF PRESENT ILLNESS: EST PT Doug Courtney is an 68 y.o. @ female. EST RECHECK LT HIP PAIN - POSSIBLY DISCUSS SURGERY TODAY PT WAS PREVIOUSLY SCHEDULED FOR SURGERY AND CX AFTER PT WAS ADMITTED HX PELVIC FRACTURE 2021 PER PT (TX @ [facility]) XRAY LT HIP TODAY EPIC 07/22/24 XRAY PELVIS/LT HIP CHANGE 08/01/23 XRAY 07/05/23 [facility] NO MDP/PREDNISONE NO CORTISONE INJ PT @ [facility] NO PAIN MANAGEMENT *PT WAS IN [facility] ER 06/15/24, FOR HIP PAIN AND [...] Not At Risk (07/20/2020) Received from [facility] AUDIT-C Frequency of Alcohol Consumption: [...] for requiring urgent evaluation. documented in this encounterLiberty HospitalIbwwmmkkmk13-84-9712 Telephone encounter Note* Telephone Encounter - Yasmin Christianson - 07/18/2024 3:06 PM EDT Patient notified Liberty HospitalArwcomnozv46-93-7011 Miscellaneous Notes* Telephone Encounter - Yasmin Christianson - 07/18/2024 3:06 PM EDT Patient notified * Telephone Encounter - Yasmin Chrsitianson - 07/18/2024 2:27 PM EDT Patient called requesting we ask if she buys an E[employer]ispe sit down exercise machine that she seen on TV will this be ok to do with her hip? Please advise [phone]. documented in this encounterLiberty HospitalNenyjfybmm40-62-7902 Telephone encounter Note* Telephone Encounter - Yasmin Christianson - 07/18/2024 2:27 PM EDT Patient called requesting we ask if she buys an E[employer]ispe sit down exercise machine that she seen on TV will this be ok to do with her hip? Please advise [phone]. [facility] HospitalDvuokqdfsj65-26-0225 Telephone encounter Note* Telephone Encounter - Romulo Alvarez MD - 06/04/2024 12:19 PM EST [facility] HospitalDnmdzchtgi55-63-0076 Miscellaneous Notes* Telephone Encounter - Romulo Alvarez MD - 06/04/2024 12:19 PM EST documented in this encounterLiberty HospitalTsbbuabeyq79-24-0974 History of Present illness Narrative* Romulo Alvarez [...] Visit CKD stage 3a, GFR 45-59 ml/min ([facility]) Relevant Orders Basic metabolic panel Dyslipidemia ([facility]) Relevant Orders Lipid panel Type 2 diabetes mellitus with hyperglycemia, without long-term current use of insulin ([facility]) Relevant Orders Hemoglobin A1c Benign essential hypertension ([facility]) Medicare annual wellness visit, subsequent - Primary [...] Orders Bilateral screening mammogram documented in this encounterLiberty HospitalWwtlntifey86-33-8573 Telephone encounter Note* Telephone Encounter - Romulo Alvarez MD - 02/13/2024 12:20 PM EST [facility] HospitalIwueoyfysw93-47-5143 Miscellaneous Notes* Telephone Encounter - Romulo Alvarez MD - 02/13/2024 12:20 PM EST documented in this encounterLiberty HospitalRqnmpflxju24-39-4377 History of Present illness Narrative* Jr. Brock Kumar DO - 01/14/2024 2:45 PM EDT HISTORY OF [...] NO MDP/PREDNISONE NO CORTISONE INJ PT @ [facility] NO PAIN MANAGEMENT CONTINUES TO HAVE HIP [...] Not At Risk (07/20/2020) Received from [facility]C Frequency of Alcohol Consumption: [...] ARVIN. Brock Kumar D.O. documented in this [facility]10-07-2024 Telephone encounter Note* Telephone Encounter - Romulo Alvarez MD - 01/14/2024 10:03 AM EDT [facility] HospitalOxmkstsdwv61-35-5068 Miscellaneous Notes* Telephone Encounter - Romulo Alvarez MD - 01/14/2024 10:03 AM EDT documented in this [facility]10-03-2024 History of Present illness Narrative* Vianey Melton [...] and Affect: Mood normal. Behavior: Behavior normal. [id number] Assessment/Plan ICD-10-CM 1. Nail dystrophy L60.3 2. [...] understanding. Vianey Melton DPM documented in this encounterLiberty HospitalXporxhmmdc30-97-7696 Telephone encounter Note* Telephone Encounter - Yasmin Christianson - 12/28/2023 1:32 PM EDT Patient called in to check if we received her blood work that ordered. I seen the previous message about getting her schedule and she did not want to schedule. Patient would like 's nurse to give her a call. Please advise [phone]. [facility] HospitalUgqzhjffac68-78-6438 Miscellaneous Notes* Telephone Encounter - Yasmin Christianson - 12/28/2023 1:32 PM EDT Patient called in to check if we received her blood work that ordered. I seen the previous message about getting her schedule and she did not want to schedule. Patient would like 's nurse to give her a call. Please advise [phone]. * Telephone Encounter - Yenifer Ochoa - 12/14/2023 10:[address] Alvarez's office called asking if we needed anything more from them regarding her surgery? Vianey said that Dr. Kumar would like to see her again to discuss going forward with surgery again. Icalled patient and was unable to leave a message. documented in this encounterLiberty HospitalSuekcjkryp05-44-7762 Telephone encounter Note* Telephone Encounter - Yenifer Ochoa - 12/14/2023 10:[address] Alvarez's office called asking if we needed anything more from them regarding her surgery? Vianey said that Dr. Kumar would like to see her again to discuss going forward with surgery again. Icalled patient and was unable to leave a message. [facility] HospitalSbrdgipslf08-16-0652 History of Present illness Narrative* Romulo Alvarez [...] without long-term current use of insulin (HCC) ([facility]) Add jardiance * Romulo Alvarez MD - 12/11/2023 1:37 PM EDTAssociated Problem(s): Benign essential hypertension (CMS/HCC) BP remains controlled without losartan and monitor PRN. * Romulo Alvarez MD - 12/11/2023 1:36 PM EDTAssociated Problem(s): Type 2 diabetes mellitus with hyperglycemia, without long-term current use of insulin ([facility]) BS controlled and last A1C 6.2. Stick [...] without long-term current use of insulin (CMS/HCC) - Primary BS controlled and last A1C 6.2. Stick to ADA diet and limit carbs. Type 2 diabetes mellitus with chronic kidney disease, without long-term current use of insulin (HCC) (CMS/HCC) Add jardiance Relevant Medications empagliflozin (Jardiance) 10 MG Benign essential hypertension (CMS/[facility]) BP remains controlled without losartan and monitor [...] reflex microscopic (clean catch) documented in this encounterLiberty [id number] NoteXR BONE LENGTH STUDY Bone length evaluation [...] by Kelly Mckeon MD on 09/22/2023 8:01 [facility] 09-19-2023 Instructions* Patient Instructions* Gina Nicole RN [...] in at the main lobby of the [facility]- registration desk is straight ahead as soon as you walk in. Tell them you are here for surgery. 2. If you have a Living Will/Durable Power of Content Management Consultant for Health Care that is not on [...] after you have bathed. 5. NO nail brazilian/acrylic on at least one finger. If you are having a hand, wrist or foot surgery then all nail brazilian and artificial/acrylic nails must be removed from [...] please call the Preadmission Testing office at [phone], Mon.-Fri. 7 a.m.-3 p.m. Leave a voicemail [...] appointment with your doctor. documented in this encounterThe Jewish HospitalSoftware Artistry [id number] Evaluation note* Encounter Date Diagnosis Assessment Notes [...] monitor LFTs and lipid profile with PCP [facility] Other 06-01-2023 Evaluation note* Encounter Date Diagnosis [...] monitor LFTs and lipid profile with PCP [facility] Other 05-12-2023 NotePROCEDURE: XR KNEE LT 3V HISTORY: Pain of joint of knee ; acute left knee pain COMPARISON: None. FINDINGS: BONES:No fracture, acute abnormality, or significant arthropathy. SOFT TISSUES:No visible soft tissue swelling. EFFUSION:None visible. OTHER: Negative. IMPRESSION: 1. No appreciable acute abnormality or significant degenerative joint disease. Electronically authenticated by: PEGGY CORTEZ Date: 2022-08-18 12:27[facility]12-15-2022 Evaluation note* Encounter Date Diagnosis Assessment Notes [...] within the goal. Continue oral vitamin D [facility] Other 07-12-2022 NotePROCEDURE: XR PELVIS W_OBL MIN [...] Electronically authenticated by: CONNIE FOX Date: 2021-10-18 19:13[facility]05-26-2022 Evaluation note* Encounter Date Diagnosis Assessment Notes [...] within the goal. 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 [facility] Other 09-20-2017 History general Narrative - Reported* Type Description Date Medical History diabetes mellitus Medical History hypertension Medical History hyperlipidemia Surgical History COLONOSCOPY NORMAL P ER PATIENT AT [facility] 12-27-2016 Hospitalization History Dehydration [facility] p.,. june 2016 [facility] Other 09-20-2017 History general Narrative - Reported* Type Description Date Medical History diabetes mellitus Medical History hypertension Medical History hyperlipidemia Surgical History COLONOSCOPY NORMAL P ER PATIENT AT [facility] 12-27-2016 Hospitalization History De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 08/09/2021 [facility] Other 09-20-2017 History general Narrative - Reported* Type Description Date Medical History diabetes mellitus Medical History hypertension Medical History hyperlipidemia Surgical History COLONOSCOPY NORMAL P ER PATIENT AT [facility] 12-27-2016 Hospitalization History Dehydration 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, UTI, SEPSIS 08/09/2021 [facility] Other 09-20-2017 History general Narrative - Reported* Type Description Date Medical History diabetes mellitus Medical History hypertension Medical History hyperlipidemia Medical History OSTEOPOROSIS Surgical History COLONOSCOPY NORMAL P ER PATIENT AT [facility] 12-27-2016 Hospitalization History De[facility]. 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, UTI, SEPSIS 08/09/2021 [facility] Other evaluation noteNo InformationNoJolancer Other evaluation noteJolancer Other evaluation note* Diagnosis Nail dystrophy- Primary Other specified disease of nail Onychomycosis Dermatophytosis of nail Type II or unspecified type diabetes mellitus with neurological manifestations, not stated as uncontrolled(250.60) ([facility]) Type II or unspecified type diabetes mellitus with neurological manifestations, not stated as uncontrolled Pain in toes of both feet [facility] Diagnosis Degeneration of intervertebral disc of lumbar region with discogenic back pain- Primary documented in [facility] encounter [facility]* Diagnosis Primary osteoarthritis of left hip- Primary documented in this encounter [facility]* Diagnosis Onset Date Resolution Status CKD (chronic kidney disease) stage 3, GFR 30-59 ml/min acute Hyperlipidemia acute [id number] acute Secondary hyperparathyroidism acute Type 2 diabetes mellitus wit h diabetic chronic kidney disease [facility] Work Phone: Evaluation note* Diagnosis Type [...] discogenic back pain documented in this encounter [facility] HealthcareEvaluation note* Diagnosis Type 2 diabetes mellitus [...] screening by mammogram documented in this encounter [facility] HealthcareEvaluation note* Diagnosis Type 2 diabetes mellitus [...] Essential hypertension, benign KENZIE (generalized anxiety disorder) ([facility]) Generalized anxiety disorder Hospital discharge follow-up Other follow-up examination Type 2 diabetes mellitus with hyperglycemia, without long-term current use of insulin ([facility])- Primary Benign essential hypertension (CMS/HCC) Essential hypertension, benign Type 2 diabetes mellitus with stage 3a chronic kidney disease, without long-term current use of insulin (HCC) ([facility]) Recurrent UTI Urinary tract infection, site not specified Primary osteoarthritis of left hip Stress, reaction gross Unspecified acute reaction to stress DDD (degenerative disc disease), lumbar Degeneration of lumbar or lumbosacral intervertebral disc Preoperative clearance Unspecified pre-operative examination Medicare annual wellness visit, subsequent- Primary Type 2 diabetes mellitus with hyperglycemia, without long-term current use of insulin ([facility]) Benign essential hypertension ([facility]) Essential hypertension, benign CKD stage 3a, GFR 45-59 ml/min ([facility]) Dyslipidemia ([facility]) Other and unspecified hyperlipidemia Encounter for long-term current use of medication Breast cancer screening by mammogram Degeneration of intervertebral disc of lumbar region with discogenic back pain documented in this encounter [facility] HealthcareEvaluation [facility]* Diagnosis Type 2 diabetes mellitus with hyperglycemia, without long-term current use of insulin (CMS/HCC)- Primary Benign essential hypertension (CMS/HCC) Essential hypertension, benign Type 2 diabetes mellitus with stage 3a chronic kidney disease, without long-term current use of insulin (HCC) ([facility]) Recurrent UTI Urinary tract infection, site not specified Primary osteoarthritis of left hip Stress, reaction gross Unspecified acute reaction to stress DDD (degenerative disc disease), lumbar Degeneration of lumbar or lumbosacral intervertebral disc Preoperative clearance Unspecified pre-operative examination documented in this encounter [facility] HealthcareEvaluation note* Diagnosis Essential (primary) hypertension (CMS/HCC) Unspecified essential hypertension Other intervertebral disc degeneration, lumbar region Age-related osteoporosis without current pathological fracture ([facility]) documented in this encounter [facility] HealthcareEvaluation note* Diagnosis Type 2 diabetes mellitus with hyperglycemia, without long-term current use of insulin ([facility])- Primary Benign essential hypertension (CMS/HCC) Essential hypertension, benign Primary osteoarthritis of left hip DDD (degenerative disc disease), lumbar Degeneration of lumbar or lumbosacral intervertebral disc Age-related osteoporosis without current pathological fracture ([facility]) Type 2 diabetes mellitus with stage 3b chronic kidney disease, without long-term current use of insulin (HCC) ([facility]) Stage 3b chronic kidney disease (CKD) ([facility]) Preoperative clearance- Primary Unspecified pre-operative examination Primary osteoarthritis of left hip Type 2 diabetes mellitus with hyperglycemia, without long-term current use of insulin ([facility]) Benign essential hypertension ([facility]) Essential hypertension, benign Type 2 diabetes mellitus with stage 3a chronic kidney disease, without long-term current use of insulin (HCC) ([facility]) Chronic kidney disease, stage 3a (N18.31) Benign essential hypertension ([facility])- Primary Essential hypertension, benign KENZIE (generalized anxiety disorder) ([facility]) Generalized anxiety disorder Hospital discharge follow-up Other follow-up examination Type 2 diabetes mellitus with hyperglycemia, without long-term current use of insulin ([facility])- Primary Benign essential hypertension ([facility]) Essential hypertension, benign Type 2 diabetes mellitus with stage 3a chronic kidney disease, without long-term current use of insulin ([facility]) ([facility]) Recurrent UTI Urinary tract infection, site not specified Primary osteoarthritis of left hip Stress, reaction gross Unspecified acute reaction to stress DDD (degenerative disc disease), lumbar Degeneration of lumbar or lumbosacral intervertebral disc Preoperative clearance Unspecified pre-operative examination Medicare annual wellness visit, subsequent- Primary Type 2 diabetes mellitus with hyperglycemia, without long-term current use of insulin ([facility]) Benign essential hypertension ([facility]) Essential hypertension, benign CKD stage 3a, GFR 45-59 ml/min ([facility]) Dyslipidemia ([facility]) Other and unspecified hyperlipidemia Encounter for long-term current use of medication Breast cancer screening by mammogram Degeneration of intervertebral disc of lumbar region with discogenic back pain documented in this encounter [facility] HealthcareEvaluation note* Diagnosis Preop examination- Primary Unspecified pre-operative examination Hypertension, unspecified type Type 2 diabetes mellitus without complication, without long-term current use of insulin ([facility]) Urinary frequency Former smoker Personal history of tobacco use, presenting hazards to health Osteoarthritis of left hip, unspecified osteoarthritis type Preop examination Unspecified pre-operative examination Hypertension, unspecified type Type 2 diabetes mellitus without complication, without long-term current use of insulin ([facility]) Urinary frequency Former smoker Personal history of tobacco use, presenting hazards to health Osteoarthritis of left hip, unspecified osteoarthritis type Preop examination Unspecified pre-operative examination Hypertension, unspecified type Type 2 diabetes mellitus without complication, without long-term current use of insulin ([facility]) Urinary frequency Former smoker Personal history of tobacco use, presenting hazards to health Osteoarthritis of left hip, unspecified osteoarthritis type [facility] Diagnosis Type 2 diabetes mellitus with hyperglycemia, without long-term current use of insulin ([facility])- Primary Benign essential hypertension ([facility]/HCC) Essential hypertension, benign Primary osteoarthritis of left hip DDD (degenerative disc disease), lumbar Degeneration of lumbar or lumbosacral intervertebral disc Age-related osteoporosis without current pathological fracture ([facility]) Type 2 diabetes mellitus with stage 3b chronic kidney disease, without long-term current use of insulin (HCC) ([facility]) Stage 3b chronic kidney disease (CKD) ([facility]) Preoperative clearance- Primary Unspecified pre-operative examination Primary osteoarthritis of left hip Type 2 diabetes mellitus with hyperglycemia, without long-term current use of insulin ([facility]/HCC) Benign essential hypertension ([facility]/HCC) Essential hypertension, benign Type 2 diabetes mellitus with stage 3a chronic kidney disease, without long-term current use of insulin (HCC) ([facility]) Chronic kidney disease, stage 3a (N18.31) Benign essential hypertension (CMS/HCC)- Primary Essential hypertension, benign KENZIE (generalized anxiety disorder) ([facility]) Generalized anxiety disorder Hospital discharge follow-up Other follow-up examination Type 2 diabetes mellitus with hyperglycemia, without long-term current use of insulin (CMS/HCC)- Primary Benign essential hypertension (CMS/HCC) Essential hypertension, benign Type 2 diabetes mellitus with stage 3a chronic kidney disease, without long-term current use of insulin (HCC) ([facility]) Recurrent UTI Urinary tract infection, site not [...] benign CKD stage 3a, GFR 45-59 ml/min (CMS/[facility]) Dyslipidemia ([facility]) Other and unspecified hyperlipidemia Encounter for long-term current use of medication Breast cancer screening by mammogram Degeneration of intervertebral disc of lumbar region with discogenic back pain documented in this encounter [facility] HealthcareEvaluation note* Diagnosis Type 2 diabetes mellitus with hyperglycemia, without long-term current use of insulin ([facility]/HCC)- Primary Benign essential hypertension ([facility]/HCC) Essential hypertension, benign Primary osteoarthritis of left hip DDD (degenerative disc disease), lumbar Degeneration of lumbar or lumbosacral intervertebral disc Age-related osteoporosis without current pathological fracture (CMS/[facility]) Type 2 diabetes mellitus with stage 3b chronic kidney disease, without long-term current use of insulin (HCC) ([facility]/HCC) Stage 3b chronic kidney disease (CKD) (CMS/[facility]) Preoperative clearance- Primary Unspecified pre-operative examination Primary osteoarthritis of left hip Type 2 diabetes mellitus with hyperglycemia, without long-term current use of insulin (CMS/HCC) Benign essential hypertension (CMS/HCC) Essential hypertension, benign Type 2 diabetes mellitus with stage 3a chronic kidney disease, without long-term current use of insulin (HCC) ([facility]) Chronic kidney disease, stage 3a (N18.31) Benign essential hypertension (CMS/HCC)- Primary Essential hypertension, benign KENZIE (generalized anxiety disorder) ([facility]) Generalized anxiety disorder Hospital discharge follow-up Other follow-up examination Type 2 diabetes mellitus with hyperglycemia, without long-term current use of insulin (CMS/HCC)- Primary Benign essential hypertension ([facility]/HCC) Essential hypertension, benign Type 2 diabetes mellitus with stage 3a chronic kidney disease, without long-term current use of insulin (HCC) ([facility]/HCC) Recurrent UTI Urinary tract infection, site not [...] stage 3a, GFR 45-59 ml/min (CMS/HCC) Dyslipidemia ([facility]) Other and unspecified hyperlipidemia Encounter for long-term current use of medication Breast cancer screening by mammogram KENZIE (generalized anxiety disorder) ([facility]) Generalized anxiety disorder Degeneration of intervertebral disc of lumbar region with discogenic back pain documented in this encounter [facility] HealthcareEvaluation note* Diagnosis Type 2 diabetes mellitus [...] (CMS/HCC) Stage 3b chronic kidney disease (CKD) (CMS/[facility]) Preoperative clearance- Primary Unspecified pre-operative examination Primary [...] Essential hypertension, benign KENZIE (generalized anxiety disorder) ([facility]) Generalized anxiety disorder Hospital discharge follow-up Other [...] discogenic back pain documented in this encounter [facility] HealthcareEvaluation note* Diagnosis Type 2 diabetes mellitus [...] without long-term current use of insulin (HCC) ([facility]/HCC) Chronic kidney disease, stage 3a (N18.31) Benign essential hypertension (CMS/HCC)- Primary Essential hypertension, benign KENZIE (generalized anxiety disorder) ([facility]) Generalized anxiety disorder Hospital discharge follow-up Other follow-up examination Type 2 diabetes mellitus with hyperglycemia, without long-term current use of insulin (CMS/HCC)- Primary Benign essential hypertension (CMS/HCC) Essential hypertension, benign Type 2 diabetes mellitus with stage 3a chronic kidney disease, without long-term current use of insulin (HCC) ([facility]) Recurrent UTI Urinary tract infection, site not specified Primary osteoarthritis of left hip Stress, reaction gross Unspecified acute reaction to stress DDD (degenerative disc disease), lumbar Degeneration of lumbar or lumbosacral intervertebral disc Preoperative clearance Unspecified pre-operative examination Medicare annual wellness visit, subsequent- Primary Type 2 diabetes mellitus with hyperglycemia, without long-term current use of insulin ([facility]/HCC) Benign essential hypertension (CMS/HCC) Essential hypertension, benign CKD stage 3a, GFR 45-59 ml/min ([facility]/HCC) Dyslipidemia ([facility]) Other and unspecified hyperlipidemia Encounter for long-term current use of medication Breast cancer screening by mammogram Primary osteoarthritis of left hip- Primary Left hip pain Pain in joint, pelvic region and thigh documented in this encounter [facility] HealthcareEvaluation note* Diagnosis Type 2 diabetes mellitus with hyperglycemia, without long-term current use of insulin ([facility]/HCC)- Primary Benign essential hypertension ([facility]/HCC) Essential hypertension, benign Primary osteoarthritis of left hip DDD (degenerative disc disease), lumbar Degeneration of lumbar or lumbosacral intervertebral disc Age-related osteoporosis without current pathological fracture (CMS/HCC) Type 2 diabetes mellitus with stage 3b chronic kidney disease, without long-term current use of insulin (HCC) ([facility]/HCC) Stage 3b chronic kidney disease (CKD) (CMS/HCC) [...] discogenic back pain documented in this encounter [facility] HealthcareEvaluation note* Diagnosis Onset Date Resolution Status Admit Date Primary osteoarthritis of le ft hip acute August 06, 2024 11:01am [facility] Work Phone: Evaluation note* Diagnosis Type 2 [...] hyperglycemia, without long-term current use of insulin ([facility]) Benign essential hypertension ([facility]) Essential hypertension, benign Type 2 diabetes mellitus with stage 3a chronic kidney disease, without long-term current use of insulin (HCC) ([facility]) Chronic kidney disease, stage 3a (N18.31) Benign essential hypertension ([facility])- Primary Essential hypertension, benign KENZIE (generalized anxiety disorder) ([facility]) Generalized anxiety disorder Hospital discharge follow-up Other follow-up examination Type 2 diabetes mellitus with hyperglycemia, without long-term current use of insulin ([facility])- Primary Benign essential hypertension ([facility]) Essential hypertension, benign Type 2 diabetes mellitus with stage 3a chronic kidney disease, without long-term current use of insulin ([facility]) ([facility]) Recurrent UTI Urinary tract infection, site not specified Primary osteoarthritis of left hip Stress, reaction gross Unspecified acute reaction to stress DDD (degenerative disc disease), lumbar Degeneration of lumbar or lumbosacral intervertebral disc Preoperative clearance Unspecified pre-operative examination Medicare annual wellness visit, subsequent- Primary Type 2 diabetes mellitus with hyperglycemia, without long-term current use of insulin ([facility]) Benign essential hypertension ([facility]) Essential hypertension, benign CKD stage 3a, GFR 45-59 ml/min ([facility]) Dyslipidemia ([facility]) Other and unspecified hyperlipidemia Encounter for long-term current use of medication Breast cancer screening by mammogram Type II or unspecified type diabetes mellitus with neurological manifestations, not stated as uncontrolled(250.60) ([facility])- Primary Type II or unspecified type diabetes mellitus with neurological manifestations, not stated as uncontrolled Nail dystrophy Other specified disease of nail Onychomycosis Dermatophytosis of nail Pain in toes of both feet documented in this encounter [facility] HealthcareEvaluation note* Diagnosis Type 2 diabetes mellitus with hyperglycemia, without long-term current use of insulin ([facility])- Primary Benign essential hypertension Essential hypertension, benign Primary osteoarthritis of left hip DDD (degenerative disc disease), lumbar Degeneration of lumbar or lumbosacral intervertebral disc Age-related osteoporosis without current pathological fracture Type 2 diabetes mellitus with stage 3b chronic kidney disease, without long-term current use of insulin ([facility]) Stage 3b chronic kidney disease (CKD) ([facility]) Preoperative clearance- Primary Unspecified pre-operative examination Primary osteoarthritis of left hip Type 2 diabetes mellitus with hyperglycemia, without long-term current use of insulin (HCC) Benign essential hypertension Essential hypertension, benign Type 2 diabetes mellitus with stage 3a chronic kidney disease, without long-term current use of insulin (HCC) Chronic kidney disease, stage 3a (N18.31) Benign essential hypertension- Primary Essential hypertension, benign KENZIE (generalized anxiety disorder) Generalized anxiety disorder Hospital discharge follow-up Other follow-up examination Type 2 diabetes mellitus with hyperglycemia, without long-term current use of insulin (HCC)- Primary Benign essential hypertension Essential hypertension, benign Type 2 diabetes mellitus with stage 3a chronic kidney disease, without long-term current use of insulin (HCC) Recurrent UTI Urinary tract infection, site not specified Primary osteoarthritis of left hip Stress, reaction gross Unspecified acute reaction to stress DDD (degenerative disc disease), lumbar Degeneration of lumbar or lumbosacral intervertebral disc Preoperative clearance Unspecified pre-operative examination Medicare annual wellness visit, subsequent- Primary Type 2 diabetes mellitus with hyperglycemia, without long-term current use of insulin ([facility]) Benign essential hypertension Essential hypertension, benign CKD stage 3a, GFR 45-59 ml/min ([facility]) Dyslipidemia Other and unspecified hyperlipidemia Encounter for long-term current use of medication Breast cancer screening by mammogram Preoperative clearance- Primary Unspecified pre-operative examination Primary osteoarthritis of left hip Type 2 diabetes mellitus with hyperglycemia, without long-term current use of insulin (HCC) Benign essential hypertension Essential hypertension, benign Degeneration of intervertebral disc of lumbar region with discogenic back pain documented in this encounter [facility] HealthcareEvaluation note* Diagnosis Type 2 diabetes mellitus with hyperglycemia, without long-term current use of insulin (HCC)- Primary Benign essential hypertension Essential hypertension, benign Primary osteoarthritis of left hip DDD (degenerative disc disease), lumbar Degeneration of lumbar or lumbosacral intervertebral disc Age-related osteoporosis without current pathological fracture Type 2 diabetes mellitus with stage 3b chronic kidney disease, without long-term current use of insulin ([facility]) Stage 3b chronic kidney disease (CKD) ([facility]) Preoperative clearance- Primary Unspecified pre-operative examination Primary osteoarthritis of left hip Type 2 diabetes mellitus with hyperglycemia, without long-term current use of insulin (HCC) Benign essential hypertension Essential hypertension, benign Type 2 diabetes mellitus with stage 3a chronic kidney disease, without long-term current use of insulin (HCC) Chronic kidney disease, stage 3a (N18.31) Benign essential hypertension- Primary Essential hypertension, benign KENZIE (generalized anxiety disorder) Generalized anxiety disorder Hospital discharge follow-up Other follow-up examination Type 2 diabetes mellitus with hyperglycemia, without long-term current use of insulin (HCC)- Primary Benign essential hypertension Essential hypertension, benign Type 2 diabetes mellitus with stage 3a chronic kidney disease, without long-term current use of insulin (HCC) Recurrent UTI Urinary tract infection, site not specified Primary osteoarthritis of left hip Stress, reaction gross Unspecified acute reaction to stress DDD (degenerative disc disease), lumbar Degeneration of lumbar or lumbosacral intervertebral disc Preoperative clearance Unspecified pre-operative examination Medicare annual wellness visit, subsequent- Primary Type 2 diabetes mellitus with hyperglycemia, without long-term current use of insulin (HCC) Benign essential hypertension Essential hypertension, benign CKD stage 3a, GFR 45-59 ml/min ([facility]) Dyslipidemia Other and unspecified hyperlipidemia Encounter for long-term current use of medication Breast cancer screening by mammogram Preoperative clearance- Primary Unspecified pre-operative examination Primary osteoarthritis of left hip Type 2 diabetes mellitus with hyperglycemia, without long-term current use of insulin (HCC) Benign essential hypertension Essential hypertension, benign Degeneration of intervertebral disc of lumbar region with discogenic back pain documented in this encounter [facility] HealthcareEvaluation note* Diagnosis Type 2 diabetes mellitus with hyperglycemia, without long-term current use of insulin (HCC)- Primary Benign essential hypertension Essential hypertension, benign Primary osteoarthritis of left hip DDD (degenerative disc disease), lumbar Degeneration of lumbar or lumbosacral intervertebral disc Age-related osteoporosis without current pathological fracture Type 2 diabetes mellitus with stage 3b chronic kidney disease, without long-term current use of insulin (HCC) Stage 3b chronic kidney disease (CKD) ([facility]) Preoperative clearance- Primary Unspecified pre-operative examination Primary osteoarthritis of left hip Type 2 diabetes mellitus with hyperglycemia, without long-term current use of insulin (HCC) Benign essential hypertension Essential hypertension, benign Type 2 diabetes mellitus with stage 3a chronic kidney disease, without long-term current use of insulin (HCC) Chronic kidney disease, stage 3a (N18.31) Benign essential hypertension- Primary Essential hypertension, benign KENZIE (generalized anxiety disorder) Generalized anxiety disorder Hospital discharge follow-up Other follow-up examination Type 2 diabetes mellitus with hyperglycemia, without long-term current use of insulin (HCC)- Primary Benign essential hypertension Essential hypertension, benign Type 2 diabetes mellitus with stage 3a chronic kidney disease, without long-term current use of insulin (HCC) Recurrent UTI Urinary tract infection, site not specified Primary osteoarthritis of left hip Stress, reaction gross Unspecified acute reaction to stress DDD (degenerative disc disease), lumbar Degeneration of lumbar or lumbosacral intervertebral disc Preoperative clearance Unspecified pre-operative examination Medicare annual wellness visit, subsequent- Primary Type 2 diabetes mellitus with hyperglycemia, without long-term current use of insulin ([facility]) Benign essential hypertension Essential hypertension, benign CKD stage 3a, GFR 45-59 ml/min ([facility]) Dyslipidemia Other and unspecified hyperlipidemia Encounter for long-term current use of medication Breast cancer screening by mammogram Preoperative clearance- Primary Unspecified pre-operative examination Primary osteoarthritis of left hip Type 2 diabetes mellitus with hyperglycemia, without long-term current use of insulin ([facility]) Benign essential hypertension Essential hypertension, benign Ingrown nail- Primary Ingrowing nail Type II or unspecified type diabetes mellitus with neurological manifestations, not stated as uncontrolled(250.60) ([facility]) Type II or unspecified type diabetes mellitus with neurological manifestations, not stated as uncontrolled Onychomycosis Dermatophytosis of nail Pain in toes of both feet documented in this encounter [facility] HealthcareHistory general Narrative - [facility] ey[facility] Other Reason for referral (narrative)No reason for referral information [facility] Work Phone: Summary Purpose Family History Relationship Condition Age [...] disease) stage 3, GFR 30-59 ml/min Hyperlipidemia [id number] Secondary hyperparathyroidism Type 2 diabetes mellitus with diabetic chronic kidney disease Chief Complaint Admit Date CONSULT DR. KUMAR ASSESS FOR LT ARVIN A pril 2024 11:01am M25.552 - Pain in left hip August 06 11:03am Reason for Visit Admit Date Primary osteoarthritis of left hip August 06, 2024 11:01am Chief Complaint Admit Date CONSULT DR. KUMAR ASSESS FOR LT ARVIN A pri2024 11:01am M25.552 - Pain in left hip/e78.5 July 102024 11:03am Chief Complaint Admit Date CONSULT DR. KUMAR ASSESS FOR LT ARVIN A pril 2024 11:01am M25.552 - Pain in left hip/e78.5 July 102024 11:03am renal f/u August 28, 2024 10:48 am Reason for Visit Admit Date Primary osteoarthritis of left hip August 06, 2024 11:01am Anemia of renal disease August 28, 2024 1 0:48am CKD (chronic kidney disease) stage 3, GF R 30-59 ml/min August 28, 2024 10:48am Hyperlipidemia August 28, 2024 10:48 am Hypertensive chronic kidney disease with stage 1 through stage 4 chronic ki August 28, 2024 10:48am Secondary hyperparathyroidism August 28, 2024 10:48am Type 2 diabetes mellitus wit h diabetic chronic kidney disease August 28, 2024 10:48am Chief Complaint Admit Date CONSULT DR. KUMAR ASSESS FOR LT ARVIN A pri2024 11:01am M25.552 - Pain in left hip/e78.5 July 102024 11:03am renal f/u August 28, 2024 10:48 am Hip pain September 15, 2024 11:15 am Chief Complaint Admit Date CONSULT DR. KUMAR ASSESS FOR LT ARVIN A pri2024 11:01am M25.552 - Pain in left hip/e78.5 July 102024 11:03am renal f/u August 28, 2024 10:48 am Hip pain September 15, 2024 11:15 am Pre-Op LTH September 17, 2024 1:42 pm H&P LTHA -INPT September 17, 2024 2:31 pm Chief Complaint Admit Date CONSULT DR. KUMAR ASSESS FOR LT ARVIN A pril 2024 11:01am M25.552 - Pain in left hip/e78.5 July 102024 11:03am renal f/u August 28, 2024 10:48 am Hip pain September 15, 2024 11:15 am Pre-Op LTH September 17, 2024 1:42 pm H&P LTHA -INPT September 17, 2024 2:31 pm Prolonged September 19, 2024 7:05 am Hip pain September 29, 2024 10:5 6am Hip pain October 06, 2024 12:0 0am Reason for Visit Admit Date Primary osteoarthritis of left hip August 06, 2024 11:01am Anemia of renal disease August 28, 2024 1 0:48am CKD (chronic kidney disease) stage 3, GF R 30-59 ml/min August 28, 2024 10:48am Hyperlipidemia August 28, 2024 10:48 am Hypertensive chronic kidney disease with stage 1 through stage 4 chronic ki August 28, 2024 10:48am Secondary hyperparathyroidism August 28, 2024 10:48am Type 2 diabetes mellitus wit h diabetic chronic kidney disease August 28, 2024 10:48am Primary osteoarthritis of left hip September 17, 2024 2:31pm Anemia of renal disease September 29, 2024 10:56am CKD (chronic kidney disease) stage 3, GF R 30-59 ml/min September 29, 2024 10:56am Encephalopathy September 29, 2024 10:5 6am Hyperlipidemia September 29, 2024 10:5 6am Hypertension September 29, 2024 10:5 6am Left hip pain September 29, 2024 10:5 6am Primary osteoarthritis of left hip September 29, 2024 10:56am S/P total hip arthroplasty September 29 10:56am Type 2 diabetes mellitus wit h diabetic chronic kidney disease September 29, 2024 10:56am Chief Complaint Admit Date CONSULT DR. KUMAR ASSESS FOR LT ARVIN A pril 2024 11:01am M25.552 - Pain in left hip/e78.5 July 102024 11:03am renal f/u August 28, 2024 10:48 am Hip pain September 15, 2024 11:15 am Pre-Op LTH September 17, 2024 1:42 pm H&P LTHA -INPT September 17, 2024 2:31 pm Prolonged September 19, 2024 7:05 am Hip pain September 29, 2024 10:5 6am Hip pain October 06, 2024 12:0 0am 2 WK POST OP LTHA October 15, 2024 1:41p m Reason for Visit Admit Date Primary osteoarthritis of left hip August 06, 2024 11:01am Anemia of renal disease August 28, 2024 1 0:48am CKD (chronic kidney disease) stage 3, GF R 30-59 ml/min August 28, 2024 10:48am Hyperlipidemia August 28, 2024 10:48 am Hypertensive chronic kidney disease with stage 1 through stage 4 chronic ki August 28, 2024 10:48am Secondary hyperparathyroidism August 28, 2024 10:48am Type 2 diabetes mellitus wit h diabetic chronic kidney disease August 28, 2024 10:48am Primary osteoarthritis of left hip September 17, 2024 2:31pm Anemia of renal disease September 29, 2024 10:56am CKD (chronic kidney disease) stage 3, GF R 30-59 ml/min September 29, 2024 10:56am Encephalopathy September 29, 2024 10:5 6am Hyperlipidemia September 29, 2024 10:5 6am Hypertension September 29, 2024 10:5 6am Left hip pain September 29, 2024 10:5 6am Primary osteoarthritis of left hip September 29, 2024 10:56am S/P total hip arthroplasty September 29 10:56am Type 2 diabetes mellitus wit h diabetic chronic kidney disease September 29, 2024 10:56am Aftercare following left hip joint repla cement surgery October 15, 2024 1:41pm S/P total hip arthroplasty October 15 1:41pm Chief Complaint Admit Date renal f/u August 28, 2024 10:48 am Hip pain September 15, 2024 11:15 am Pre-Op LTH September 17, 2024 1:42 pm H&P LTHA -INPT September 17, 2024 2:31 pm Prolonged September 19, 2024 7:05 am Hip pain September 29, 2024 10:5 6am Hip pain October 06, 2024 12:0 0am Hip pain October 13, 2024 12:00 am 2 WK POST OP LTHA October 15, 2024 1:41p m Z47.1 - Aftercare following joint replac ement surg November 12, 2024 9:11am 4 WK RECHECK LTHA November 12, 2024 1:2 0pm Reason for Visit Admit Date Anemia of renal disease August 28, 2024 1 0:48am CKD (chronic kidney disease) stage 3, GF R 30-59 ml/min August 28, 2024 10:48am Hyperlipidemia August 28, 2024 10:48 am Hypertensive chronic kidney disease with stage 1 through stage 4 chronic ki August 28, 2024 10:48am Secondary hyperparathyroidism August 28, 2024 10:48am Type 2 diabetes mellitus with diabetic c hronic kidney disease August 28, 2024 10:48am Primary osteoarthritis of left hip September 17, 2024 2:31pm Anemia of renal disease September 29, 2024 10:56am CKD (chronic kidney disease) stage 3, GF R 30-59 ml/min September 29, 2024 10:56am Encephalopathy September 29, 2024 10:5 6am Hyperlipidemia September 29, 2024 10:5 6am Hypertension September 29, 2024 10:5 6am Left hip pain September 29, 2024 10:5 6am Primary osteoarthritis of left hip September 29, 2024 10:56am S/P total hip arthroplasty September 29 10:56am Type 2 diabetes mellitus with diabetic c hronic kidney disease September 29, 2024 10:56am Aftercare following left hip joint repla cement surgery October 15, 2024 1:41pm S/P total hip arthroplasty October 15 1:41pm Aftercare following left hip joint repla cement surgery November 12, 2024 1:20pm S/P total hip arthroplasty November 12, 2 025 1:20pm Chief Complaint Admit Date Prolonged September 19, 2024 7:05 am Hip pain September 29, 2024 10:5 6am Hip pain October 06, 2024 12:0 0am Hip pain October 13, 2024 12:00 am 2 WK POST OP LTHA October 15, 2024 1:41p m Z47.1 - Aftercare following joint replac ement surg November 12, 2024 9:11am 4 WK RECHECK LTHA November 12, 2024 1:2 0pm Reason for Visit Admit Date Anemia of renal disease September 29, 2024 10:56am CKD (chronic kidney disease) stage 3, GF R 30-59 ml/min September 29, 2024 10:56am Encephalopathy September 29, 2024 10:5 6am Hyperlipidemia September 29, 2024 10:5 6am Hypertension September 29, 2024 10:5 6am Left hip pain September 29, 2024 10:5 6am Primary osteoarthritis of left hip September 29, 2024 10:56am S/P total hip arthroplasty September 29 10:56am Type 2 diabetes mellitus with diabetic c hronic kidney disease September 29, 2024 10:56am Aftercare following left hip joint repla cement surgery October 15, 2024 1:41pm S/P total hip arthroplasty October 15 1:41pm Aftercare following left hip joint repla cement surgery November 12, 2024 1:20pm S/P total hip arthroplasty November 12, 1:20pm Chief Complaint Admit Date Hip pain September 29, 2024 10:5 6am Hip pain October 06, 2024 12:0 0am Hip pain October 13, 2024 12:00 am 2 WK POST OP LTHA October 15, 2024 1:41p m Z47.1 - Aftercare following joint replac ement surg November 12, 2024 9:11am 4 WK RECHECK LTHA November 12, 2024 1:2 0pm Z47.1 - Aftercare following joint replac ement surg December 24, 2024 8:37am 6 WEEKS December 24, 2024 2:22pm Reason for Visit Admit Date Anemia of renal disease September 29, 2024 10:56am CKD (chronic kidney disease) stage 3, GF R 30-59 ml/min September 29, 2024 10:56am Encephalopathy September 29, 2024 10:5 6am Hyperlipidemia September 29, 2024 10:5 6am Hypertension September 29, 2024 10:5 6am Left hip pain September 29, 2024 10:5 6am Primary osteoarthritis of left hip September 29, 2024 10:56am S/P total hip arthroplasty September 29 10:56am Type 2 diabetes mellitus wit h diabetic chronic kidney disease September 29, 2024 10:56am Aftercare following left hip joint repla cement surgery October 15, 2024 1:41pm S/P total hip arthroplasty October 15 1:41pm Aftercare following left hip joint repla cement surgery November 12, 2024 1:20pm S/P total hip arthroplasty November 12, 025 1:20pm Aftercare following left hip joint repla cement surgery December 24, 2024 2:22pm Chief Complaint Admit Date Hip pain October [...] 8:37am 6 WEEKS December 24, 2024 2:22pm *MICHAEL PT RIGHT INTRA-ARTICULAR HIP JOINT INJ December [...] repla cement surgery December 24, 2024 2:22pm Reason for Referral Specialty Diagnoses / Procedures Referred By Jordon polanco Referred To Contact Diagnoses Preop examination Hypertension, unspecified type Type 2 diabetes mellitus without complication, without long-term current use of insulin ([facility]) Urinary frequency Former smoker Osteoarthritis of left hip, unspecified osteoarthritis type Procedures ECG 12 lead Brock Kumar Jr., DO [address] [place] [address] Referral ID Status Reason Start Date Expiration Date V isits Requested Visits Authorized [id number] Pending Review 09/18/2023 09/17/2024 1 1 Additional Source Comments INFORMATION SOURCE (unrecogn ized section and content) DATE CREATED AUTHOR 12/05/2017 [employer] [facility] DATE CREATED AUTHOR AUTHOR'S ORGANIZ ATION 07/23/2020 [facility] DATE CREATED AUTHOR AUTHOR'S ORGANIZ ATION 09/16/2022 [facility] DATE CREATED AUTHOR AUTHOR'S ORGANIZ ATION 10/10/2023 [facility] DATE CREATED AUTHOR AUTHOR'S ORGANIZ ATION 09/04/2024 [facility] DATE CREATED AUTHOR AUTHOR'S ORGANIZ ATION 12/27/[address] [facility] REASON FOR VISIT (unrecogniz ed section and [...] Pain Reason Comments Medicare Annual Wellness Visit Subsequ t Wellness Reason Comments Follow-up 6m f/u Reason Onset Date Comments Hip 07/18/2024 Reason Onset Date Comments Medicine 07/23/2024 Reason Comments Pain Reason Comments Nail care Doug Courtney is a 68 y.o. female who presents for DM Foot Care. BS: 114 A1C: 5.2/LV Dr. Alvarez 02/27/2025 SS: 9.5 Reason Onset Date Comments Med Refill 11/04/2024 Reason Comments Ingrown Toenail Doug Courtney is a 68 y.o. female who presents for Right great toenail ING pain, medial border.Patient called PCP, and was given Doxycycline 100MG 2x daily, started 01/02/2025 BS: 114 A1C: 5.2/LV Dr. Alvarez 08/11/2024 SS: 9.5 Care Teams (unrecognized sec tion and content) Team Status: Active Member Role Status Dates Romulo Alvarez MD Primary Care Provider Active Team Status: Active Member Role Status Dates Romulo Alvarez MD Primary Care Provider Active S tart: September 29, 2024 Bakari Rodriguez II, MD Other Provider Active S tart: September 29, 2024 Fernie Quinn MD Attending Provider Active Star t: September 29, 2024 Fernie Quinn MD Other Provider Active Start: J edel 2024 Ratna Wray , CAROLYNN Other Provider Active Star t: September 29, 2024 Amelia Downing , CAROLYNN Other Provider Active Start : September 29, 2024 Juanita Rousseau RN Other Provider Active Star t: September 29, 2024 Magdalena Jimenez RN Other Provider Active Start: 2024 Lisa Jean RN Other Provider Active Start: 2024 Maryam Quinn RN Other Provider Active Start: 2024 Mitesh Sims MD Other Provider Active Start: September 29, 2024 Jd Kimble DO Other Provider Active Start : September 29, 2024 Chidi Bright MD Other Provider Active Start : September 29, 2024 Amari Keller DO Other Provider Active Start: September 29, 2024 Xiang Abreu MD Other Provider Active Start: September 29, 2024 Ying Luevano MD Other Provider Active Start : September 29, 2024 Kelly Raygoza DO Other Provider Active St art: September 29, 2024 Blayne Guillory MD Other Provider Active Start: 2024 Kiya Andersen APRN Other Provider Active Start: September 29, 2024 Tayla Kay MD Other Provider Active Start: September 29, 2024 Rony Ruiz MD Other Provider Active Start: 2024 Humberto Bartlett MD Other Provider Active Start: September 29, 2024 Kati Aleman MD Other Provider Active Start: September 29, 2024 Kelly Muñoz DO Other Provider Active Start: September 29, 2024 Erickson Napier MD Other Provider Active Start: 2024 Markell Donnelly MD Other Provider Active Start: Sep Saira Christopher NP-Raz Other Provider Active St art: September 29, 2024 Jerald Roberts APRN Other Provider Active Star t: September 29, 2024 Lico Hernandez MD Other Provider Active Start: September 29, 2024 Bi Gambino MD Other Provider Active Start: 2024 Federico Haile MD Other Provider Active Start: Sep Alejandro Tucker MD Other Provider Active Star t: September 29, 2024 Gerardo Barron MD Other Provider Active Start: J 2024 Clarita Boo , DO Other Provider Active Start: Emili 2024 Vishal Braswell , DO Other Provider Active Start : September 29, 2024 Zhanna Mckeon APRN Other Provider Active Start: September 29, 2024 Saleem Barillas , Other Provider Active Start: September 29, 2024 Edy العلي MD Other Provider Active Sta rt: September 29, 2024 Fifi Delarosa APRN Other Provider Active Start : September 29, 2024 Nicki Darling APRN Other Provider Active St art: September 29, 2024 Tessie Salmeron MD Other Provider Active Start: J 2024 Ye Rodriguez MD Other Provider Active S tart: September 29, 2024 Harvinder Smith , Other Provider Active Star t: September 29, 2024 Toya Webster , DO Other Provider Active Start: September 29, 2024 Antonio Haile MD Other Provider Active Start: September 29, 2024 Alexi West MD Other Provider Active Start: September 29, 2024 Anna Mijares APRN Other Provider Active Star t: September 29, 2024 Kizzy Caceres MD Other Provider Active Start: J edel 2024 Mina Foote MD Other Provider Active Start: Emili 2024 Fernie Cano MD Other Provider Active Start: September 29, 2024 Blayne Alvarez MD Other Provider Active Start : September 29, 2024 Tal Vera MD Other Provider Active Start: J 2024 Yasmin Abad APRN Other Provider Active Sta rt: September 29, 2024 Humberto Lujan APRN Other Provider Active Start: September 29, 2024 Vicki Liu RN Other Provider Active Start: J 2024 Team Status: Active Member Role Status Dates Romulo Alvarez MD Primary Care Provider Active S tart: October 06, 2024 Bakari Rodriguez II, MD Attending Provider Active Start: October 06, 2024 Bakari Rodriguez II, MD Other Provider Active S tart: October 06, 2024 Fernie Quinn MD Other Provider Active Start: 2024 Team Status: Active Member Role Status Dates Romulo Alvarez MD Primary Care Provider Active S tart: October 13, 2024 Bakari Rodriguez II, MD Attending Provider Active Start: October 13, 2024 Bakari Rodriguez II, MD Other Provider Active S tart: October 13, 2024 Fernie Quinn MD Other Provider Active Start: 2024 Team Status: Inactive Member Role Status Dates oRmulo Alvarez MD Primary Care Provider Active S tart: October 15, 2024 End: October 15, 2024 Bakari Rodriguez II, MD Attending Provider Active Start: October 15, 2024 End: October 15, 2024 Team Status: Inactive Member Role Status Dates Romulo Alvarez MD Primary Care Provider Active S tart: November 12, 2024 End: November 12, 2024 Bakari Rodriguez II, MD Attending Provider Active Start: November 12, 2024 End: November 12, 2024 Team Status: Active Member Role Status Dates Romulo Alvarez MD Primary Care Provider Active S tart: December 24, 2024 Bakari Rodriguez II, MD Attending Provider Active Start: December 24, 2024 Team Status: Inactive Member Role Status Dates Romulo Alvarez MD Primary Care Provider Active S tart: December 24, 2024 End: December 24, 2024 Bakari Rodriguez II, MD Attending Provider Active Start: December 24, 2024 End: December 24, 2024 Team Status: Inactive Member Role Status Dates Romulo Alvarez MD Primary Care Provider Active S tart: September 19, 2024 End: September 19, 2024 Bakari Rodriguez II, MD Attending Provider Active Start: September 19, 2024 End: September 19, 2024 Team Status: Active Member Role Status Dates Romulo Alvarez MD Primary Care Provider Active S tart: August 21, 2024 Ghislaine Kirkpatrick MD Attending Provider Active Start : August 21, 2024 Team Status: Inactive Member Role Status Dates Romulo Alvarez MD Primary Care Provider Active S tart: August 28, 2024 End: August 28, 2024 Ghislaine Kirkpatrick MD Attending Provider Active Start : August 28, 2024 End: August 28, 2024 Team Status: Inactive Member Role Status Dates Romulo Alvarez MD Primary Care Provider Active S tart: September 15, 2024 End: September 15, 2024 Bakari Rodriguez II, MD Attending Provider Active Start: September 15, 2024 End: September 15, 2024 Team Status: Active Member Role Status Dates Romulo Alvarez MD Primary Care Provider Active S tart: September 17, 2024 Bakari Rodriguez II, MD Attending Provider Active Start: September 17, 2024 Team Status: Inactive Member Role Status Dates Romulo Alvarez MD Primary Care Provider Active S tart: September 17, 2024 End: September 17, 2024 Bakari Rodriguez II, MD Attending Provider Active Start: September 17, 2024 End: September 17, 2024 Team Status: Active Member Role Status Dates Romulo Alvarez MD Primary Care Provider Active S tart: November 12, 2024 Bakari Rodriguez II, MD Attending Provider Active Start: November 12, 2024 Team Status: Inactive Member Role Status [...] Attending Provider Active Start: August 06, 2024 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 Start Date End Date Romulo Alvarez MD [address] [place] [id number] PCP - [facility] 04/09/21 Romulo Alvarez MD [address] [place] [id number] PCP - General Family Medicine 05/08/23 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 Start Date End Date Romulo Alvarez MD [address] [place] [address] PCP - [facility] 04/09/21 Romulo Alvarez MD [address] [place] [address] PCP - General Family Medicine 05/08/23 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 Start Date End Date Romulo Alvarez MD [address] [place] [address] PCP - [facility] 04/09/21 Romulo Alvarez MD [address] [place] [address] PCP - General [facility] Medicine 05/08/23 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 Start Date End Date Romulo Alvarez MD [address] [place] [address] PCP - [facility] 04/09/21 Romulo Alvarez MD [address] [place] [address] PCP - General [facility] Medicine 05/08/23 Team Status: Active Member [...] January 31, 2024 End: January 31, 2024 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 Start Date End Date Romulo Alvarez MD [address] [place] [address] PCP - [facility] 04/09/21 Romulo Alvarez MD [address] [place] [address] PCP - General Family Medicine 05/08/23 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 Start Date End Date Romulo Alvarez MD [address] [place] [address] PCP - [facility] 04/09/21 Romulo Alvarez MD [address] [place] [address] PCP - General [facility] Medicine 05/08/23 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 Start Date End Date Romulo Alvarez MD [address] [place] [address] PCP - [facility] 04/09/21 Romulo Alvarez MD [address] [place] [address] PCP - General [facility] Medicine 05/08/23 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 Start Date End Date Romulo Alvarez MD [address] [place] [address] PCP - [facility] 04/09/21 Romulo Alvarez MD [address] [place] [address] PCP - General Family Medicine 05/08/23 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 Start Date End Date Romulo Alvraez MD [address] [place] [address] PCP - [facility] 04/09/21 Romulo Alvarze MD [address] [place] [address] PCP - General Family Medicine 05/08/23 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 Start Date End Date Romulo Alvarez MD [address] [place] [address] PCP - [facility] 04/09/21 Romulo Alvarez MD [address] [place] [address] PCP - General Family Medicine 05/08/23 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 Start Date End Date Romulo Alvarez MD [address] [place] [address] PCP - [facility] 04/09/21 Romulo Alvarez MD [address] [place] [address] PCP - General Family Medicine 05/08/23 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 Start Date End Date Romulo Alvarez MD [address] [place] [address] PCP - [facility] 04/09/21 Romulo Alvarez MD [address] [place] [address] PCP - General Family Medicine 05/08/23 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 Start Date End Date Romulo Alvarez MD [address] [place] [address] PCP - General Family Medicine 07/13/22 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 Start Date End Date Romulo Alvarez MD [address] [place] [address] PCP - [facility] 04/09/21 Romulo Alvarez MD [address] [place] [address] PCP - General Family Medicine 05/08/23 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 Start Date End Date Romulo Alvarez MD [address] [place] [address] PCP - [facility] 04/09/21 Romulo Alvarez MD [address] [place] [address] PCP - General Family Medicine 05/08/23 Trevor Caballero MA Family Medicine 06/17/24 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 Start Date End Date Romulo Alvarez MD [address] [place] [address] PCP - [facility] 04/09/21 Romulo Alvarez MD [address] [place] [address] PCP - General Family Medicine 05/08/23 Trevor Caballero MA Family Medicine 06/17/24 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 Start Date End Date Romulo Alvarez MD [address] [place] [address] PCP - [facility] 04/09/21 Romulo Alvarez MD [address] [place] [address] PCP - General Family Medicine 05/08/23 Trevor Caballero MA [facility] 06/17/24 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 Start Date End Date Romulo Alvarez MD [address] [place] [address] PCP - [facility] 04/09/21 Romulo Alvarez MD [address] [place] [address] PCP - General Family Medicine 05/08/23 Trevor Caballero MA [facility] Medicine 06/17/24 Team Status: Inactive Member Role Status Dates Romulo Alvarez MD Primary Care Provider Active S tart: August 06, 2024 End: August 06, 2024 Bakari Rodriguez II, MD Attending Provider Active Start: August 06, 2024 End: August 06, 2024 Ghislaine Kirkpatrick MD Other Provider Active Start: 2024 End: August 06, 2024 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 Start Date End Date Romulo Alvarez MD [address] [place] [address] PCP - [facility] 04/09/21 Romulo Alvarez MD [address] [place] [address] PCP - General Family Medicine 05/08/23 Trevor Caballero MA [facility] 06/17/24 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 Start Date End Date Romulo Alvarez MD [address] [place] [address] PCP - [facility] 04/09/21 Romulo Alvarez MD [address] [place] [address] PCP - General Family Medicine 05/08/23 Trevor Caballero MA Family Medicine 06/17/24 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 Start Date End Date Romulo Alvarez MD [address] [place] [address] PCP - [facility] 04/09/21 Romulo Alvarez MD [address] [place] [address] PCP - General Family Medicine 05/08/23 Trevor Caballero MA [address] [place] [address] Family Medicine 06/17/24 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 Start Date End Date Romulo Alvarez MD [address] [place] [address] PCP - [facility] 04/09/21 Romulo Alvarez MD [address] [place] [address] PCP - General Family Medicine 05/08/23 Trevor Caballero MA [address] [place] [address] Family Medicine 06/17/24 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 Start Date End Date Romulo Alvarez MD [address] [place] [address] PCP - [facility] 05/08/23 Trevor Caballero MA [address] [place] [address] [facility] 06/17/24 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 Start Date End Date Romulo Alvarez MD [address] [place] [address] PCP - [facility] 05/08/23 Trevor Caballero MA [address] [place] [address] [facility] 06/17/24 12/02/24 Team Status: Inactive Member Role Status Dates Romulo Alvarez MD Primary Care Provider Active S tart: December 29, 2024 End: December 29, 2024 Chano Naidu MD Attending Provider Active Sta rt: December 29, 2024 End: December 29, 2024 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 Start Date End Date Romulo Alvarez MD [address] [place] [address] PCP - [facility] 05/08/23 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 [facility] [employer] [facility]. provides no warranty or guarantee of the accuracy or completeness of information in this document.
[2025-01-13 10:57] LABS: Hematocrit 34.1 % (36.0-48.0); Hemoglobin 10.5 g/dL (12.0-16.0); Mean Corpuscular HGB Conc 30.8 g/dL (29.9-35.2); Mean Corpuscular Hemoglobin 25.6 pg (26.7-34.0); Mean Corpuscular Volume 83.2 fL (81.0-99.0); Platelet Count 249 10^3/uL (150-450); Red Blood Count 4.10 10^6/uL (4.20-5.40); White Blood Count 5.7 10^3/uL (4.0-11.0)
[2025-01-13 10:59] LABS: Protein Creatinine Ratio Urine 0.19; Total Protein Urine Random 18.4 mg/dL (<=11.9)
[2025-01-13 11:04] LABS: Glucose Urine UA NEGATIVE (NEGATIVE)
[2025-01-13 11:18] LABS: Cast Seen? NONE SEEN #/LPF (NONE SEEN); Crystals Seen? None Seen #/HPF (None Seen)
[2025-01-13 11:24] LABS: Albumin Level 3.4 g/dL (3.4-5.0); Anion Gap 11.1; Blood Urea Nitrogen 30.0 mg/dL (7.0-18.0); Calcium 9.4 mg/dL (8.5-10.1); Carbon Dioxide 29.2 mmol/L (21.0-32.0); Chloride 103 mmol/L (98-107); Estimated GFR (African America 57 (>=60 mL/min/1.73m^2); Estimated GFR (Non-African Ame 47 (>=60 mL/min/1.73m^2); Glucose 95 mg/dL (74-106); Magnesium 2.0 mg/dL (1.8-2.4); Potassium 4.3 mmol/L (3.5-5.1); Sodium 139 mmol/L (136-145); Uric Acid 4.1 mg/dL (2.6-6.0)
[2025-01-13 11:36] LABS: Iron 22.0 ug/dL (50.0-170.0); Percent Iron Saturation 5.8 %; Total Iron Binding Capacity 382.0 ug/dL (250.0-450.0)
[2025-01-13 12:16] LABS: Ferritin 13.0 ng/mL (8.0-252.0)
== END 2025-01-13 10:22 | disposition home or self-care (01) ==
PROVIDERS: PCP Family Medicine; Visit Provider Internal Medicine
DX: E78.5 Hyperlipidemia, unspecified (principal); N25.81 Secondary hyperparathyroidism of renal origin; I12.9 Hypertensive chronic kidney disease with stage 1 through stage 4 chronic kidney disease, or unspecified chronic kidney disease; E11.22 Type 2 diabetes mellitus with diabetic chronic kidney disease; N18.9 Chronic kidney disease, unspecified; D63.1 Anemia in chronic kidney disease
CPT/HCPCS: 36415; 80069; 81001; 82306; 82570; 82728; 83540; 83550; 83735; 83970; 84156; 84550; 85027